=== PATIENT | male | born 1930 | race Caucasian/White ===

== ENCOUNTER 2016-10-10 10:09 | Emergency (ER) | payer MEDICARE ==
[~2016-10-10 10:09] MED LIST: /SENOSTA PO; AMLO10TA2 PO; DIOV320T PO; ISTA0.5S OD; LIPI20TA PO; META28.35 PO; MOM30SS PO; PLAVIX PO; PRIL40CA PO; SUCR1SUS PO
--- NOTE | 2016-10-10 12:07 | REP ---
Clinical: Left hip pain. Technique: Frontal view of the pelvis with neutral and frog lateral views of the left hip. Findings: Age-related osteopenia and degenerative changes are noted and appear relatively symmetric. Left hip appears intact. No acute fracture or dislocation appreciated. Impression: Age-related degenerative changes and osteopenia. No acute fracture or dislocation. Signed by Yousif Burt MD 10/10/2016 11:58 A
--- NOTE | 2016-10-10 12:09 | REP ---
Clinical: Pain. Technique: AP, lateral, bilateral oblique and coned-down views of the lumbosacral spine. Comparison: 12/24/2010. Findings: Moderate multilevel degenerative changes and osteopenia noted. Findings include early osteophytosis, endplate sclerosis and minimal disc space narrowing as well as hypertrophic facet changes. Alignment and lordosis maintained. No acute fracture / compression injury or subluxation. Impression: Moderate multilevel degenerative changes. Signed by Yousif Burt MD 10/10/2016 12:00 P
--- NOTE | 2016-10-10 12:57 | EDDOCDS ---
Nurse's Notes [facility] Name: Yasir Guevara Age: 86 yrs Sex: Male : 1930 Arrival Date: 10/10/2016 Time: 10:09 Bed 9 Private MD: Asad Gill Diagnosis: Low back pain;Sciatica, left side Presentation: 10/10 10:14 Presenting complaint: Patient states: Pt states Monday morning got out of bed felt dls dizzy balance was off today pt states left 4th and 5th toes feel numb radiating to left knee. Adult Sepsis Screening: The patient does not have new or worsening altered mentation. Patient's respiratory rate is less than 22. Systolic blood pressure is greater than 100. Patient has a qSOFA score of 0- Negative Sepsis Screen. Suicide/Homicide risk assessment- the patient denies having any suicidal and/or homicidal ideations and does not present with any other emotional, behavioral or mental health complaints. 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 Transition of care: patient was not received from another setting of care. 10:14 Acuity: ELIER Level 3 dls 10:14 Method Of Arrival: Walkin/Carried/Asstd dls 10:22 Presenting complaint: Patient states: Also c/o lower back pain left lower back. dls Triage Assessment: 10:21 General: Appears in no apparent distress, well developed, Behavior is cooperative. dls Pain: Pain currently is 6 out of 10 on a pain scale. Historical: - Allergies: no known allergies; - Home Meds: 1. amlodipine 10 mg Oral tab 1 tab once daily 2. Diovan 320 mg Oral tab 0.5 tab once daily 3. Lipitor 20 mg Oral tab 1 tab once daily 4. Omeprazole Oral 2 times per day 5. Plavix 75 mg Oral tab 1 tab once daily 6. elequis 5mg twice a day 7. Protonix 40 mg Oral grps - PMHx: BPH; CAD; GERD; Hypercholesterolemia; Hypertension; Sciatica; a-fib; cardiac stent; - PSHx: none; Cardiac stents; - Social history: Smoking status: Patient/guardian denies using No barriers to communication noted, The patient speaks fluent Yakut. - Family history: Not pertinent. - : The pt / caregiver states he / she is on anticoagulants: coumadin. Eliquis Home medication list is obtained from the patient. - Exposure Risk Screening:: None identified. Screenin:43 Screening information is obtained from the patient. Fall risk: No risks identified. hs1 Assistance ADL's: requires no assistance with activities of daily living. Abuse/DV Screen: The patient / caregiver reports he/she is: not in a situation that causes fear, pain or injury. Nutritional screening: No deficits noted. Advance Directives: There is no active DNR order. home support is adequate. Assessment: 11:02 General: Appears in no apparent distress, Behavior is appropriate for age, cooperative. hs1 Pain: Location: left low back and left mid back. Neurological: Level of Consciousness is awake. Neurological: Reports paresthesias in his left foot. Respiratory: No deficits noted. Airway is patent Respiratory effort is even, unlabored, Respiratory pattern is regular, symmetrical. Derm: Skin is pink, warm & dry. normal. 12:54 General: Appears in no apparent distress, Behavior is appropriate for age, cooperative. srm Pain: Pain currently is 6 out of 10 on a pain scale. Musculoskeletal: Circulation, motion, and sensation intact Capillary refill < 3 seconds in bilateral fingers moves all extremities well. Vital Signs: 10:11 BP 165 / 79; Pulse 63; Resp 18 S; Temp 96.8; Pulse Ox 100% on R/A; Weight 86.18 kg (R); dd6 Height 6 ft. 1 in. (185.42 cm) (R); 11:55 Pulse 62 MON; Pulse Ox 97% ; srm 11:55 BP 159 / 87 (auto/); srm 12:51 BP 171 / 87 (auto/); srm 12:52 Pulse 60 MON; Resp 18; Temp 97.1(O); Pulse Ox 99% ; Pain 6/10; srm 10:11 Body Mass Index 25.07 (86.18 kg, 185.42 cm) dd6 Vitals: 10:11 Log In Time: October 10, 2016 at 10:09. dd6 ED Course: 10:10 Patient visited by Varinder Lorenzo PCA. dd6 10:10 Asad Gill is Private Physician. dd6 10:10 Patient moved to Waiting dd6 10:12 Patient moved to Pre RCE dd6 10:16 Triage Initiated dls 10:22 Patient moved to 9 dls 10:45 Crissy Erazo MD is Attending Physician. fg 11:04 Patient visited by Crissy Erazo MD. fg 11:41 Patient visited by Jeannette Hayes RN. hs1 11:43 The patient / caregiver is instructed regarding the plan of care and ED course. hs1 12:12 Patient visited by Jeannette Hayes RN. hs1 12:28 Hip,AP,LAT to include Pelvis Returned. EDMS 12:28 Spine. Lumbosacral, Complete Returned. EDMS 12:44 Asad Gill is Referral Physician. fg 12:52 No IV's were initiated during this patient's visit. No procedures done that require srm assistance. Order Results: Radiology Order: Spine. Lumbosacral, Complete Test: Spine. Lumbosacral, Complete REASON FOR EXAMINATION: LUMBAR PAIN; Clinical: Pain.; ; Technique: AP, lateral, bilateral oblique and coned-down views of the; lumbosacral spine.; ; Comparison: 12/24/2010.; ; Findings:; Moderate multilevel degenerative changes and osteopenia noted. Findings include; early osteophytosis, endplate sclerosis and minimal disc space narrowing as well; as hypertrophic facet changes. Alignment and lordosis maintained. No acute; fracture / compression injury or subluxation.; ; Impression:; Moderate multilevel degenerative changes.; ; ; Signed by; Yousif Burt MD 10/10/2016 12:00 P; Radiology Order: Hip,AP,LAT to include Pelvis Test: Hip,AP,LAT to include Pelvis REASON FOR EXAMINATION: HIP PAIN; Clinical: Left hip pain.; ; Technique: Frontal view of the pelvis with neutral and frog lateral views of the; left hip.; ; Findings:; Age-related osteopenia and degenerative changes are noted and appear relatively; symmetric. Left hip appears intact. No acute fracture or dislocation; appreciated.; ; Impression:; Age-related degenerative changes and osteopenia.; No acute fracture or dislocation.; ; ; Signed by; Yousif Burt MD 10/10/2016 11:58 A; Outcome: 12:45 Discharge ordered by Provider. fg 12:52 Discharge Assessment: Patient awake, alert and oriented x 3. No cognitive and/or srm functional deficits noted. Patient verbalized understanding of disposition instructions. patient administered narcotics - no. The following High Risk Discharge criteria are identified: None. Discharged to home ambulatory, with family. Condition: good Condition: stable. Discharge instructions given to patient, Instructed on discharge instructions, follow up and referral plans. medication usage, Demonstrated understanding of instructions, medications, Pt was receptive of discharge instructions/ teaching. Prescriptions given X 2. Property :Personal belongings accompany Pt. 12:56 No special radiology studies were completed. [facility] 12:56 Patient left the ED. srm Signatures: Dispatcher Med[employer] EDMS Desiree Marie, RN RN Danay Kang RN RN dls Varinder Lorenzo, CASIE YARN INSPECTOR dd6 Jeannette Hayes RN RN hs1 Crissy Erazo MD MD fg MTDD
--- NOTE | 2016-10-10 12:57 | EDDOCDS ---
Physician Documentation [facility] Name: Yasir Guevara Age: 86 yrs Sex: Male : 1930 Arrival Date: 10/10/2016 Time: 10:09 Bed 9 Private MD: Asad Gill Disposition: 10/10/16 12:45 Discharged to Home/Self Care. Impression: Low back pain, Sciatica, left side. - Condition is Stable. - Discharge Instructions: Sciatica, Back Pain, Adult, [id number]. - Prescriptions for Percocet 5- 325 mg Oral Tablet - take 1 tablet by ORAL route every 8-12 hours As needed MDD: 3 tabs; 15 tablet. Dulcolax 5 mg Oral - take 1 tablet by ORAL route at bedtime As needed; 15 tablet. - Medication Reconciliation, Local Pharmacy Hours form. - Follow up: Asad Gill; When: Call to arrange an appointment; Reason: Continuance of care. - Problem is new. - Symptoms have improved. Historical: - Allergies: no known allergies; - Home Meds: 1. amlodipine 10 mg Oral tab 1 tab once daily 2. Diovan 320 mg Oral tab 0.5 tab once daily 3. Lipitor 20 mg Oral tab 1 tab once daily 4. Omeprazole Oral 2 times per day 5. Plavix 75 mg Oral tab 1 tab once daily 6. elequis 5mg twice a day 7. Protonix 40 mg Oral grps - PMHx: BPH; CAD; GERD; Hypercholesterolemia; Hypertension; Sciatica; a-fib; cardiac stent; - PSHx: none; Cardiac stents; - Social history: Smoking status: Patient/guardian denies using No barriers to communication noted, The patient speaks fluent Chinese. - Family history: Not pertinent. - : The pt / caregiver states he / she is on anticoagulants: coumadin. Eliquis Home medication list is obtained from the patient. - Exposure Risk Screening:: None identified. Vital Signs: 10/10 10:11 BP 165 / 79; Pulse 63; Resp 18 S; Temp 96.8; Pulse Ox 100% on R/A; Weight 86.18 kg / dd6 189.99 lbs (R); Height 6 ft. 1 in. (185.42 cm) (R); 11:55 Pulse 62 MON; Pulse Ox 97% ; srm 11:55 BP 159 / 87 (auto/); srm 12:51 BP 171 / 87 (auto/); srm 12:52 Pulse 60 MON; Resp 18; Temp 97.1(O); Pulse Ox 99% ; Pain 6/10; srm 10:11 Body Mass Index 25.07 (86.18 kg, 185.42 cm) dd6 MDM: 11:25 Spine. Lumbosacral, Complete Ordered. EDMS 11:25 Hip,AP,LAT to include Pelvis Ordered. EDMS 12:51 Financial registration complete. lg Signatures: Dispatcher [employer] EDMS Desiree Marie RN RN srm Scott, Debra, RN RN dls Ganter, LoriLee, Mikel Morin lg Crissy Erazo MD MD fg MTDD
--- NOTE | 2016-10-12 13:58 | EDDOCDS ---
Nurse's Notes [facility] Name: Yasir Guevara Age: 86 yrs Sex: Male : 1930 Arrival Date: 10/10/2016 Time: 10:09 Bed 9 Private MD: Asad Gill Diagnosis: Low back pain;Sciatica, left side Presentation: 10/10 10:14 Presenting complaint: Patient states: Pt states Monday morning got out of bed felt dls dizzy balance was off today pt states left 4th and 5th toes feel numb radiating to left knee. Adult Sepsis Screening: The patient does not have new or worsening altered mentation. Patient's respiratory rate is less than 22. Systolic blood pressure is greater than 100. Patient has a qSOFA score of 0- Negative Sepsis Screen. Suicide/Homicide risk assessment- the patient denies having any suicidal and/or homicidal ideations and does not present with any other emotional, behavioral or mental health complaints. 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 Transition of care: patient was not received from another setting of care. 10:14 Acuity: ELIER Level 3 dls 10:14 Method Of Arrival: Walkin/Carried/Asstd dls 10:22 Presenting complaint: Patient states: Also c/o lower back pain left lower back. dls Triage Assessment: 10:21 General: Appears in no apparent distress, well developed, Behavior is cooperative. dls Pain: Pain currently is 6 out of 10 on a pain scale. Historical: - Allergies: no known allergies; - Home Meds: 1. amlodipine 10 mg Oral tab 1 tab once daily 2. Diovan 320 mg Oral tab 0.5 tab once daily 3. Lipitor 20 mg Oral tab 1 tab once daily 4. Omeprazole Oral 2 times per day 5. Plavix 75 mg Oral tab 1 tab once daily 6. elequis 5mg twice a day 7. Protonix 40 mg Oral grps - PMHx: BPH; CAD; GERD; Hypercholesterolemia; Hypertension; Sciatica; a-fib; cardiac stent; - PSHx: none; Cardiac stents; - Social history: Smoking status: Patient/guardian denies using No barriers to communication noted, The patient speaks fluent Kinyarwanda. - Family history: Not pertinent. - : The pt / caregiver states he / she is on anticoagulants: coumadin. Eliquis Home medication list is obtained from the patient. - Exposure Risk Screening:: None identified. Screenin:43 Screening information is obtained from the patient. Fall risk: No risks identified. hs1 Assistance ADL's: requires no assistance with activities of daily living. Abuse/DV Screen: The patient / caregiver reports he/she is: not in a situation that causes fear, pain or injury. Nutritional screening: No deficits noted. Advance Directives: There is no active DNR order. home support is adequate. Assessment: 11:02 General: Appears in no apparent distress, Behavior is appropriate for age, cooperative. hs1 Pain: Location: left low back and left mid back. Neurological: Level of Consciousness is awake. Neurological: Reports paresthesias in his left foot. Respiratory: No deficits noted. Airway is patent Respiratory effort is even, unlabored, Respiratory pattern is regular, symmetrical. Derm: Skin is pink, warm & dry. normal. 12:54 General: Appears in no apparent distress, Behavior is appropriate for age, cooperative. srm Pain: Pain currently is 6 out of 10 on a pain scale. Musculoskeletal: Circulation, motion, and sensation intact Capillary refill < 3 seconds in bilateral fingers moves all extremities well. Vital Signs: 10:11 BP 165 / 79; Pulse 63; Resp 18 S; Temp 96.8; Pulse Ox 100% on R/A; Weight 86.18 kg (R); dd6 Height 6 ft. 1 in. (185.42 cm) (R); 11:55 Pulse 62 MON; Pulse Ox 97% ; srm 11:55 BP 159 / 87 (auto/); srm 12:51 BP 171 / 87 (auto/); srm 12:52 Pulse 60 MON; Resp 18; Temp 97.1(O); Pulse Ox 99% ; Pain 6/10; srm 10:11 Body Mass Index 25.07 (86.18 kg, 185.42 cm) dd6 Vitals: 10:11 Log In Time: October 10, 2016 at 10:09. dd6 ED Course: 10:10 Patient visited by Varinder Lorenzo PCA. dd6 10:10 Asad Gill is Private Physician. dd6 10:10 Patient moved to Waiting dd6 10:12 Patient moved to Pre RCE dd6 10:16 Triage Initiated dls 10:22 Patient moved to 9 dls 10:45 Crissy Erazo MD is Attending Physician. fg 11:04 Patient visited by Crissy Erazo MD. fg 11:41 Patient visited by Jeannette Hayes RN. hs1 11:43 The patient / caregiver is instructed regarding the plan of care and ED course. hs1 12:12 Patient visited by Jeannette Hayes RN. hs1 12:28 Hip,AP,LAT to include Pelvis Returned. EDMS 12:28 Spine. Lumbosacral, Complete Returned. EDMS 12:44 GillAsad Jeremías Lilly is Referral Physician. fg 12:52 No IV's were initiated during this patient's visit. No procedures done that require srm assistance. 14:33 T-Sheet-- Draft Copy was scanned into Enomaly and attached to record. gb 14:54 Patient name changed from Yasir\Juanito\\S\Hill\S\ to Yasir\Juanito\ \S\Hill. EDMS 14:55 [facility] [place] Agreement was scanned into [employer] and attached to record. lg Order Results: Radiology Order: Spine. Lumbosacral, Complete Test: Spine. Lumbosacral, Complete REASON FOR EXAMINATION: LUMBAR PAIN; Clinical: Pain.; ; Technique: AP, lateral, bilateral oblique and coned-down views of the; lumbosacral spine.; ; Comparison: 12/24/2010.; ; Findings:; Moderate multilevel degenerative changes and osteopenia noted. Findings include; early osteophytosis, endplate sclerosis and minimal disc space narrowing as well; as hypertrophic facet changes. Alignment and lordosis maintained. No acute; fracture / compression injury or subluxation.; ; Impression:; Moderate multilevel degenerative changes.; ; ; Signed by; Yousif Burt MD 10/10/2016 12:00 P; Radiology Order: Hip,AP,LAT to include Pelvis Test: Hip,AP,LAT to include Pelvis REASON FOR EXAMINATION: HIP PAIN; Clinical: Left hip pain.; ; Technique: Frontal view of the pelvis with neutral and frog lateral views of the; left hip.; ; Findings:; Age-related osteopenia and degenerative changes are noted and appear relatively; symmetric. Left hip appears intact. No acute fracture or dislocation; appreciated.; ; Impression:; Age-related degenerative changes and osteopenia.; No acute fracture or dislocation.; ; ; Signed by; Youisf Burt MD 10/10/2016 11:58 A; Outcome: 12:45 Discharge ordered by Provider. fg 12:52 Discharge Assessment: Patient awake, alert and oriented x 3. No cognitive and/or srm functional deficits noted. Patient verbalized understanding of disposition instructions. patient administered narcotics - no. The following High Risk Discharge criteria are identified: None. Discharged to home ambulatory, with family. Condition: good Condition: stable. Discharge instructions given to patient, Instructed on discharge instructions, follow up and referral plans. medication usage, Demonstrated understanding of instructions, medications, Pt was receptive of discharge instructions/ teaching. Prescriptions given X 2. Property :Personal belongings accompany Pt. 12:56 No special radiology studies were completed. srm 12:56 Patient left the ED. srm Signatures: Dispatcher [employer] EDMS Desiree Marie, RN RN Danay Kang RN RN dls Stacy Berrios, Reg Reg gb Kat Mendoza, Reg Reg lg Varinder Lorenzo, FRONT END ALIGNMENT SPECIALIST FRONT END ALIGNMENT SPECIALIST dd6 Jeannette Hayes RN RN hs1 Crissy Erazo MD MD fg Chart Complete MTDD
--- NOTE | 2016-10-12 13:58 | EDDOCDS ---
Physician Documentation [facility] Name: Yasir Guevara Age: 86 yrs Sex: Male : 1930 Arrival Date: 10/10/2016 Time: 10:09 Bed 9 Private MD: Asad Gill Disposition: 10/10/16 12:45 Discharged to Home/Self Care. Impression: Low back pain, Sciatica, left side. - Condition is Stable. - Discharge Instructions: Sciatica, Back Pain, Adult, [id number]. - Prescriptions for Percocet 5- 325 mg Oral Tablet - take 1 tablet by ORAL route every 8-12 hours As needed MDD: 3 tabs; 15 tablet. Dulcolax 5 mg Oral - take 1 tablet by ORAL route at bedtime As needed; 15 tablet. - Medication Reconciliation, Local Pharmacy Hours form. - Follow up: Asad Gill; When: Call to arrange an appointment; Reason: Continuance of care. - Problem is new. - Symptoms have improved. Historical: - Allergies: no known allergies; - Home Meds: 1. amlodipine 10 mg Oral tab 1 tab once daily 2. Diovan 320 mg Oral tab 0.5 tab once daily 3. Lipitor 20 mg Oral tab 1 tab once daily 4. Omeprazole Oral 2 times per day 5. Plavix 75 mg Oral tab 1 tab once daily 6. elequis 5mg twice a day 7. Protonix 40 mg Oral grps - PMHx: BPH; CAD; GERD; Hypercholesterolemia; Hypertension; Sciatica; a-fib; cardiac stent; - PSHx: none; Cardiac stents; - Social history: Smoking status: Patient/guardian denies using No barriers to communication noted, The patient speaks fluent Pashto. - Family history: Not pertinent. - : The pt / caregiver states he / she is on anticoagulants: coumadin. Eliquis Home medication list is obtained from the patient. - Exposure Risk Screening:: None identified. Vital Signs: 10/10 10:11 BP 165 / 79; Pulse 63; Resp 18 S; Temp 96.8; Pulse Ox 100% on R/A; Weight 86.18 kg / dd6 189.99 lbs (R); Height 6 ft. 1 in. (185.42 cm) (R); 11:55 Pulse 62 MON; Pulse Ox 97% ; srm 11:55 BP 159 / 87 (auto/); srm 12:51 BP 171 / 87 (auto/); srm 12:52 Pulse 60 MON; Resp 18; Temp 97.1(O); Pulse Ox 99% ; Pain 6/10; srm 10:11 Body Mass Index 25.07 (86.18 kg, 185.42 cm) dd6 MDM: 11:25 Spine. Lumbosacral, Complete Ordered. EDMS 11:25 Hip,AP,LAT to include Pelvis Ordered. EDMS 12:51 Financial registration complete. lg 14:33 T-Sheet-- Draft Copy was scanned into All[employer] and attached to record. gb 14:55 [facility] Payment Agreement was scanned into [employer] and attached to record. lg Signatures: Dispatcher MedHost EDMS Desiree Marie, SHELLY BRAVO [facility] Danay Garcia RN RN dls Barnhardt, Gloria, Reg Reg gb Kat Mendoza, Reg Reg lg Crissy Erazo MD MD fg The chart was reviewed and I authenticate all verbal orders and agree with the evaluation and treatment provided.Attachments: 14:33 T-Sheet-- Draft Copy gb 14:55 [facility] Payment Agreement lg Chart Complete MTDD
--- NOTE | 2016-10-12 13:58 | EDDOCDS ---
Physician Documentation [facility] Name: Yasir Guevara Age: 86 yrs Sex: Male : 1930 Arrival Date: 10/10/2016 Time: 10:09 Bed 9 Private MD: Asad Gill Disposition: 10/10/16 12:45 Discharged to Home/Self Care. Impression: Low back pain, Sciatica, left side. - Condition is Stable. - Discharge Instructions: Sciatica, Back Pain, Adult, [id number]-Farb. - Prescriptions for Percocet 5- 325 mg Oral Tablet - take 1 tablet by ORAL route every 8-12 hours As needed MDD: 3 tabs; 15 tablet. Dulcolax 5 mg Oral - take 1 tablet by ORAL route at bedtime As needed; 15 tablet. - Medication Reconciliation, Local Pharmacy Hours form. - Follow up: Asad Gill; When: Call to arrange an appointment; Reason: Continuance of care. - Problem is new. - Symptoms have improved. Historical: - Allergies: no known allergies; - Home Meds: 1. amlodipine 10 mg Oral tab 1 tab once daily 2. Diovan 320 mg Oral tab 0.5 tab once daily 3. Lipitor 20 mg Oral tab 1 tab once daily 4. Omeprazole Oral 2 times per day 5. Plavix 75 mg Oral tab 1 tab once daily 6. elequis 5mg twice a day 7. Protonix 40 mg Oral grps - PMHx: BPH; CAD; GERD; Hypercholesterolemia; Hypertension; Sciatica; a-fib; cardiac stent; - PSHx: none; Cardiac stents; - Social history: Smoking status: Patient/guardian denies using No barriers to communication noted, The patient speaks fluent Kiswahili. - Family history: Not pertinent. - : The pt / caregiver states he / she is on anticoagulants: coumadin. Eliquis Home medication list is obtained from the patient. - Exposure Risk Screening:: None identified. Vital Signs: 10/10 10:11 BP 165 / 79; Pulse 63; Resp 18 S; Temp 96.8; Pulse Ox 100% on R/A; Weight 86.18 kg / dd6 189.99 lbs (R); Height 6 ft. 1 in. (185.42 cm) (R); 11:55 Pulse 62 MON; Pulse Ox 97% ; srm 11:55 BP 159 / 87 (auto/); srm 12:51 BP 171 / 87 (auto/); srm 12:52 Pulse 60 MON; Resp 18; Temp 97.1(O); Pulse Ox 99% ; Pain 6/10; srm 10:11 Body Mass Index 25.07 (86.18 kg, 185.42 cm) dd6 MDM: 11:25 Spine. Lumbosacral, Complete Ordered. EDMS 11:25 Hip,AP,LAT to include Pelvis Ordered. EDMS 12:51 Financial registration complete. lg 14:33 T-Sheet-- Draft Copy was scanned into [employer] and attached to record. gb 14:55 [facility] Payment Agreement was scanned into [employer] and attached to record. lg Signatures: Dispatcher MedHost EDMS Desiree Marie, SHELLY BRAVO [facility] Danay Garcia RN RN dls Barnhardt, Gloria, Reg Reg gb Kat Mendoza, Reg Reg lg Crissy Erazo MD MD fg The chart was reviewed and I authenticate all verbal orders and agree with the evaluation and treatment provided.Attachments: 14:33 T-Sheet-- Draft Copy gb 14:55 [facility] Payment Agreement lg Chart Complete MTDD
== END 2016-10-10 12:56 | disposition home or self-care (01) ==
LOC: M ED 10:09
DX: M54.30 Sciatica, unspecified side (principal); N40.0 Benign prostatic hyperplasia without lower urinary tract symptoms; I25.10 Atherosclerotic heart disease of native coronary artery without angina pectoris; K21.9 Gastro-esophageal reflux disease without esophagitis; E78.00 Pure hypercholesterolemia, unspecified; I10 Essential (primary) hypertension; I48.91 Unspecified atrial fibrillation; Z95.5 Presence of coronary angioplasty implant and graft; Z79.01 Long term (current) use of anticoagulants; Z79.02 Long term (current) use of antithrombotics/antiplatelets; Z79.899 Other long term (current) drug therapy

== ENCOUNTER 2016-10-27 17:07 | Emergency (ER) | payer MEDICARE ==
[2016-10-27 18:39] LABS: BASO % 0.3 % (0.0-1.0); EOS # 0.1 K/mm3 (0.0-0.50); EOS % 0.6 % (0.0-3.0); LARGE UNSTAINED CELL # 0.1 K/mm3 (0.0-0.4); LARGE UNSTAINED CELL % 1.4 % (0.0-4.0); LYMPH # 2.2 K/mm3 (1.5-4.5); LYMPH % 23.2 % (24.0-44.0); MEAN CORPUSCULAR HEMOGLOBIN 30.8 pg (27.0-33.0); MEAN CORPUSCULAR VOLUME 87.8 fl (80.0-96.0); MONO # 0.5 K/mm3 (0.0-0.8); MONO % 4.8 % (0.0-5.0); NEUTROPHILS # 6.6 K/mm3 (1.8-7.7); NEUTROPHILS % 69.6 % (36.0-66.0); PLATELET COUNT, AUTOMATED 279 k/mm3 (150-450); RED CELL DISTRIBUTION WIDTH 12.6 % (11.5-14.5); WHITE BLOOD COUNT 9.5 K/mm3 (4.0-10.0)
[2016-10-27 18:56] LABS: ALBUMIN/GLOBULIN RATIO 1.33 (1.00-1.93); BILIRUBIN,DIRECT 0.2 MG/DL (0.0-0.2); BILIRUBIN,TOTAL 0.8 MG/DL (0.2-1.0); CALCIUM LEVEL 9.4 MG/DL (8.8-10.2); CREATININE FOR GFR 1.31 MG/DL (0.70-1.30); GLOMERULAR FILTRATION RATE 55.1 (>35); POTASSIUM SERUM 3.9 MEQ/L (3.5-5.1)
--- NOTE | 2016-10-27 19:00 | REPUSA ---
CLINICAL HISTORY: Abdominal pain. TECHNIQUE: Multiple axial, sagittal and coronal CT images were obtained through the abdomen and pelvi s without administration of oral or IV contrast material. COMMENTS: Several small hepatic hypodensities are present to small to characterize most bowel small cysts versu s hemangiomas. The liver is of uniform attenuation without mass or defect. There is no intra or extr ahepatic biliary ductal dilatation. The spleen is normal. The gallbladder is within normal limits. Th e pancreas is of normal contour and attenuation characteristics. There is no evidence of adrenal mass . The kidneys are normal in size, shape and configuration. No renal or ureteral calculi are identified. There is no hydroureter or hydronephrosis. There is no evidence for appendicitis. There is no bowel wall thickening. No evidence for small or la rge bowel obstruction. There is no evidence of abdominal ascites or lymphadenopathy. There is no evidence of intrinsic or extrinsic bladder mass. There is no pelvic ascites or lymphadeno filiberto. Prostate is mildly enlarged and contains calcifications with Images of the lung bases show no evidence of pleural or parenchymal mass. There are no pleural effusi ons. The bony structures are free of lytic or blastic lesions. Multilevel degenerative changes are seen in volving the thoracolumbar spine. Scattered calcifications are seen involving the aorta and major branches compatible with atherosclero sis. IMPRESSION: No acute abdominal or pelvic pathology. Thank you for your kind referral of this patient.
--- NOTE | 2016-10-27 19:34 | EDDOCDS ---
Nurse's Notes [facility] Name: Yasir Guevara Age: 86 yrs Sex: Male : 1930 Arrival Date: 10/27/2016 Time: 17:07 Bed I2 / M2 Private MD: Asad Gill Diagnosis: Low back pain;Dehydration;Contusion of lower back and pelvis Presentation: 10/27 17:21 Presenting complaint: Patient states: pt c/o right flank pain since Monday. Reports ead nausea, denies vomiting. Pt states he is currently being treated for UTI. Acute neurological deficits are not present. Mechanism of Injury: No Mechanism of Injury. Adult Sepsis Screening: The patient does not have new or worsening altered mentation. Patient's respiratory rate is less than 22. Systolic blood pressure is greater than 100. Patient has a qSOFA score of 0- Negative Sepsis Screen. Suicide/Homicide risk assessment- the patient denies having any suicidal and/or homicidal ideations and does not present with any other emotional, behavioral or mental health complaints. Status: Patient is not a services executive or dependent. Transition of care: patient was not received from another setting of care. 17:21 Acuity: ELIER Level 3 ead 17:21 Method Of Arrival: Walkin/Carried/Asstd ead Triage Assessment: 17:24 General: Appears in no apparent distress, comfortable, well nourished, well groomed, ead Behavior is appropriate for age, cooperative, pleasant. Pain: Location: anterior aspect of right lateral abdomen Pain currently is 6 out of 10 on a pain scale. Neurological: No deficits noted. GI: Reports nausea. : Reports pain with urination. Derm: Skin is pink, warm & dry. Musculoskeletal: Reports pain in anterior aspect of right lateral abdomen. Historical: - Allergies: no known allergies; - Home Meds: 1. amlodipine 10 mg Oral tab 1 tab once daily 2. Diovan 320 mg Oral tab 0.5 tab once daily 3. elequis 5mg twice a day 4. Lipitor 20 mg Oral tab 1 tab once daily 5. Omeprazole Oral 2 times per day 6. Plavix 75 mg Oral tab 1 tab once daily - PMHx: A-fib; cardiac stent; Sciatica; Hypercholesterolemia; CAD; GERD; BPH; Hypertension; - PSHx: Cardiac stents; - Social history: No barriers to communication noted, The patient speaks fluent Romanian, Speaks appropriately for age, Smoking status: Patient states former smoker of tobacco. - Family history: Not pertinent. - : The pt / caregiver states he / she is on anticoagulants: Plavix. Eliquis Home medication list is obtained from the patient. - Exposure Risk Screening:: None identified. Screenin:22 Screening information is obtained from the patient. Fall risk: No risks identified. mk4 Assistance ADL's: Requires assistance with housework, assistance is provided by family members. Abuse/DV Screen: The patient / caregiver reports he/she is: not in a situation that causes fear, pain or injury. Nutritional screening: No deficits noted. home support is adequate. 19:32 Advance Directives: Currently, there is no health care proxy. There is no active DNR ms2 order. There is no living will. There is no Power of Senior Java Web Developer. Advance directive information has not previously been placed in an [facility] medical record. Further advance directive information is declined. Assessment: 18:22 General: Appears uncomfortable. Pain: Location: anterior aspect of right lateral mk4 abdomen. GI: Abdomen is non- distended Bowel sounds present X 4 quads. Abd is soft and non tender. 19:27 Adult Sepsis Screening: The patient does not have new or worsening altered mentation. ms2 Patient's respiratory rate is less than 22. Systolic blood pressure is greater than 100. Patient has a qSOFA score of 0- Negative Sepsis Screen. No known or suspected infection- Negative Sepsis Screen. General: Appears in no apparent distress, Behavior is cooperative. Pain: Location: back Pain currently is 7 out of 10 on a pain scale. Neurological: Level of Consciousness is awake, alert, obeys commands. Respiratory: No deficits noted. Airway is patent Respiratory effort is even, unlabored, Respiratory pattern is regular, symmetrical. Derm: Skin is pink, warm & dry. Vital Signs: 17:11 BP 157 / 97; Pulse 69; Resp 16; Temp 97.7(O); Pulse Ox 100% on R/A; Weight 83.91 kg; sew Height 6 ft. 1 in. (185.42 cm); Pain 6/10; 19:28 BP 181 / 77; Pulse 64; Resp 22 S; Temp 96(O); Pulse Ox 95% on R/A; ms2 17:11 Body Mass Index 24.41 (83.91 kg, 185.42 cm) sew 19:28 pt will take his 2 bp meds when he gets home ms2 Vitals: 17:11 Log In Time: October 27, 2016 at 17:05. sew ED Course: 17:11 Patient visited by Amanda Vicente. sew 17:11 Asad Gill is Private Physician. sew 17:11 Patient moved to Waiting sew 17:12 Patient visited by Amanda Vicente. sew 17:12 Patient moved to Pre RCE sew 17:22 Triage Initiated ead 17:27 Patient moved to Triage 2 ead 17:44 Shashi Mercado PA is PHCP. mo1 17:44 Amanda lEise MD is Attending Physician. mo1 17:49 Patient visited by Viji Jimenez RN. ck1 17:49 Patient visited by Shashi Mercado PA. mo1 18:06 Patient moved to I2 / M2 ck1 18:09 Urinalysis Sent. mlb1 18:09 Urine Culture Sent. mlb1 18:22 The patient / caregiver is instructed regarding the plan of care and ED course. mk4 18:22 Basic Metabolic Profile Sent. mk4 18:22 CBC with Diff Sent. mk4 18:22 Lipase Sent. mk4 18:22 Liver Profile Sent. mk4 18:22 Inserted saline lock: 20 gauge in right antecubital area and blood collected. mk4 18:25 Patient visited by Brook Mejía, SHELLY. mk4 19:07 CT ABD & PELVIS: No Contrast Returned. EDMS 19:12 Asad Gill is Referral Physician. mo1 19:15 Patient visited by Brenden Helms,RN. ms2 19:27 Patient visited by Brenden Helms,SHELLY. ms2 19:29 [facility] [place] Agreement was scanned into [employer] and attached to record. zo 19:29 The patient / caregiver is instructed regarding the plan of care and ED course. ms2 19:29 Discontinued IV intact, bleeding controlled, pressure dressing applied, No ms2 redness/swelling at site. No procedures done that require assistance. Administered Medications: 18:20 Drug: NS 0.9% 1000 ml [sodium chloride 0.9 % intravenous solution] Route: IV; Rate: jjr bolus; Site: right antecubital; 19:25 Drug: Ondansetron 4 mg Route: IVP; Site: right antecubital; ms2 Intake: 19:28 PO: 0.00ml; IV: 875.00ml (NS); Total: 875.00ml. ms2 Order Results: Lab Order: Basic Metabolic Profile; SPEC'M 10/27/16 18:10 Test: GLUCOSE, FASTING; Value: 111; Range: 83-110; Abnormal: Above high normal; Units: MG/DL; Status: F Test: BLOOD UREA NITROGEN; Value: 17; Range: 7-18; Units: MG/DL; Status: F Test: CREATININE FOR GFR; Value: 1.31; Range: 0.70-1.30; Abnormal: Above high normal; Units: MG/DL; Status: F Test: GLOMERULAR FILTRATION RATE; Value: 55.1; Range: >35; Status: F Test: SODIUM LEVEL; Value: 135; Range: 136-145; Abnormal: Below low normal; Units: MEQ/L; Status: F Test: POTASSIUM SERUM; Value: 3.9; Range: 3.5-5.1; Units: MEQ/L; Status: F Test: CHLORIDE LEVEL; Value: 97; Range: 98-107; Abnormal: Below low normal; Units: MEQ/L; Status: F Test: CARBON DIOXIDE LEVEL; Value: 28; Range: 21-32; Units: MEQ/L; Status: F Test: ANION GAP; Value: 10; Range: 8-16; Units: MEQ/L; Status: F Test: CALCIUM LEVEL; Value: 9.4; Range: 8.8-10.2; Units: MG/DL; Status: F Test Note: ; Units are mL/min/1.73 m2 Chronic Kidney Disease Staging per NKF: Stage I & II GFR >=60 Normal to Mildly Decreased Stage III GFR 30-59 Moderately Decreased Stage IV GFR 15-29 Severely Decreased Stage V GFR <15 Very Little GFR Left ESRD GFR <15 on [employer] Lab Order: CBC with Diff; SPEC'M 10/27/16 18:10 Test: WHITE BLOOD COUNT; Value: 9.5; Range: 4.0-10.0; Units: K/mm3; Status: F Test: RED BLOOD COUNT; Value: 4.95; Range: 4.30-6.10; Units: M/mm3; Status: F Test: HEMOGLOBIN; Value: 15.2; Range: 14.0-18.0; Units: g/dl; Status: F Test: HEMATOCRIT; Value: 43.4; Range: 42.0-52.0; Units: %; Status: F Test: MEAN CORPUSCULAR VOLUME; Value: 87.8; Range: 80.0-96.0; Units: fl; Status: F Test: MEAN CORPUSCULAR HEMOGLOBIN; Value: 30.8; Range: 27.0-33.0; Units: pg; Status: F Test: MEAN CORPUSCULAR HGB CONC; Value: 35.0; Range: 32.0-36.5; Units: g/dl; Status: F Test: RED CELL DISTRIBUTION WIDTH; Value: 12.6; Range: 11.5-14.5; Units: %; Status: F Test: PLATELET COUNT, AUTOMATED; Value: 279; Range: 150-450; Units: k/mm3; Status: F Test: NEUTROPHILS %; Value: 69.6; Range: 36.0-66.0; Abnormal: Above high normal; Units: %; Status: F Test: LYMPH %; Value: 23.2; Range: 24.0-44.0; Abnormal: Below low normal; Units: %; Status: F Test: MONO %; Value: 4.8; Range: 0.0-5.0; Units: %; Status: F Test: EOS %; Value: 0.6; Range: 0.0-3.0; Units: %; Status: F Test: BASO %; Value: 0.3; Range: 0.0-1.0; Units: %; Status: F Test: LARGE UNSTAINED CELL %; Value: 1.4; Range: 0.0-4.0; Units: %; Status: F Test: NEUTROPHILS #; Value: 6.6; Range: 1.8-7.7; Units: K/mm3; Status: F Test: LYMPH #; Value: 2.2; Range: 1.5-4.5; Units: K/mm3; Status: F Test: MONO #; Value: 0.5; Range: 0.0-0.8; Units: K/mm3; Status: F Test: EOS #; Value: 0.1; Range: 0.0-0.50; Units: K/mm3; Status: F Test: BASO #; Value: 0.0; Range: 0.0-0.2; Units: K/mm3; Status: F Test: LARGE UNSTAINED CELL #; Value: 0.1; Range: 0.0-0.4; Units: K/mm3; Status: F Lab Order: Lipase; SPEC'M 10/27/16 18:10 Test: LIPASE; Value: 168; Range: 73-393; Units: U/L; Status: F Lab Order: Liver Profile; SPEC'M 10/27/16 18:10 Test: AST/SGOT; Value: 12; Range: 15-37; Abnormal: Below low normal; Units: U/L; Status: F Test: ALT/SGPT; Value: 18; Range: 12-78; Units: U/L; Status: F Test: ALKALINE PHOSPHATASE; Value: 79; Range: 45-117; Units: U/L; Status: F Test: BILIRUBIN,TOTAL; Value: 0.8; Range: 0.2-1.0; Units: MG/DL; Status: F Test: BILIRUBIN,DIRECT; Value: 0.2; Range: 0.0-0.2; Units: MG/DL; Status: F Test: TOTAL PROTEIN; Value: 7.0; Range: 6.4-8.2; Units: GM/DL; Status: F Test: ALBUMIN; Value: 4.0; Range: 3.2-5.2; Units: GM/DL; Status: F Test: ALBUMIN/GLOBULIN RATIO; Value: 1.33; Range: 1.00-1.93; Status: F Lab Order: Urinalysis; SPEC'M 10/27/16 18:09 Test: APPEARANCE, URINE; Value: CLEAR; Range: CLEAR; Status: F Test: COLOR, URINE; Value: LISA; Range: YELLOW; Status: F Test: PH,URINE; Value: 5.0; Range: 5.0-9.0; Units: UNITS; Status: F Test: SPECIFIC GRAVITY URINE AUTO; Value: 1.020; Range: 1.002-1.035; Status: F Test: PROTEIN, URINE AUTO; Value: NEGATIVE; Range: NEGATIVE; Units: mg/dL; Status: F Test: GLUCOSE, URINE (UA) AUTO; Value: NEGATIVE; Range: NEGATIVE; Units: mg/dL; Status: F Test: KETONE, URINE AUTO; Value: NEGATIVE; Range: NEGATIVE; Units: mg/dL; Status: F Test: UROBILINOGEN, URINE AUTO; Value: 4.0; Range: 0.0-2.0; Abnormal: Above high normal; Units: mg/dL; Status: F Test: BILIRUBIN, URINE AUTO; Value: NEGATIVE; Range: NEGATIVE; Status: F Test: NITRITE, URINE AUTO; Value: POSITIVE; Range: NEGATIVE; Status: F Test: LEUKOCYTE ESTERASE, URINE AUTO; Value: NEGATIVE; Range: NEGATIVE; Status: F Test: BLOOD, URINE BLOOD; Value: NEGATIVE; Range: NEGATIVE; Status: F Test: WBC, URINE AUTO; Value: 0; Range: 0-3; Units: /HPF; Status: F Test: RBC, URINE AUTO; Value: 3; Range: 0-3; Units: /HPF; Status: F Test: BACTERIA, URINE AUTO; Value: NEGATIVE; Range: NEGATIVE; Status: F Test: SQUAMOUS EPITHELIAL CELL UR AU; Value: 0; Range: 0-6; Units: /HPF; Status: F Test: MUCUS, URINE; Value: SMALL; Range: NEGATIVE; Status: F Test: HYALINE CAST, URINE AUTO; Value: 6; Range: 0-1; Units: /LPF; Status: F Radiology Order: CT ABD & PELVIS: No Contrast Test: CT ABD & PELVIS: No Contrast REASON FOR EXAMINATION: right flank; ; CLINICAL HISTORY: Abdominal pain.; TECHNIQUE: Multiple axial, sagittal and coronal CT images were obtained through the abdomen and pelvi; s without administration of oral or IV contrast material.; COMMENTS:; Several small hepatic hypodensities are present to small to characterize most bowel small cysts versu; s hemangiomas. The liver is of uniform attenuation without mass or defect. There is no intra or extr; ahepatic biliary ductal dilatation. The spleen is normal. The gallbladder is within normal limits. Th; e pancreas is of normal contour and attenuation characteristics. There is no evidence of adrenal mass; .; The kidneys are normal in size, shape and configuration. No renal or ureteral calculi are identified.; There is no hydroureter or hydronephrosis.; There is no evidence for appendicitis. There is no bowel wall thickening. No evidence for small or la; rge bowel obstruction. There is no evidence of abdominal ascites or lymphadenopathy.; There is no evidence of intrinsic or extrinsic bladder mass. There is no pelvic ascites or lymphadeno; filiberto.; Prostate is mildly enlarged and contains calcifications with; Images of the lung bases show no evidence of pleural or parenchymal mass. There are no pleural effusi; ons.; The bony structures are free of lytic or blastic lesions. Multilevel degenerative changes are seen in; volving the thoracolumbar spine.; Scattered calcifications are seen involving the aorta and major branches compatible with atherosclero; sis.; IMPRESSION:; No acute abdominal or pelvic pathology.; Thank you for your kind referral of this patient.; ; Outcome: 19:12 Discharge ordered by Provider. mo1 19:29 Discharge Assessment: patient administered narcotics - no. The following High Risk ms2 Discharge criteria are identified: None. Discharged to home ambulatory, with family. Condition: stable. Discharge instructions given to patient, Instructed on discharge instructions, follow up and referral plans. medication usage, no driving heavy equipment, no drinking with medication, Demonstrated understanding of instructions, medications, Pt was receptive of discharge instructions/ teaching. Prescriptions given X one faxed. No special radiology studies were completed. Property sent home with patient. 19:33 Patient left the ED. ms2 Signatures: Dispatcher [employer] EDMS Brenden Helms RN RN ms2 Shashi Galdamez RN RN mlb1 Viji Jimenez RN RN ck1 Jennifer Saxena Jessica RN RN Amanda Alejandre Michael, PA PA mo1 Brook Mejía RN RN mk4 Bushra GargRN RN jaylen Corrections: (The following items were deleted from the chart) 19:32 19:28 BP 181 / 77; Pulse 64bpm; Resp 22bpm; Spontaneous; Pulse Ox 95% RA; Temp 96F ms2 Oral; ms2 MTDD
--- NOTE | 2016-10-27 19:34 | EDDOCDS ---
Physician Documentation [facility] Name: Yasir Guevara Age: 86 yrs Sex: Male : 1930 Arrival Date: 10/27/2016 Time: 17:07 Bed I2 / M2 Private MD: Asad Gill Disposition: 10/27/16 19:12 Discharged to Home/Self Care. Impression: Low back pain, Dehydration, Contusion of lower back and pelvis. - Condition is Stable. - Discharge Instructions: Back Pain, Adult, Contusion, Dehydration, Elderly. - Prescriptions for Tylenol- Codeine #3 300-30 mg Oral Tablet - take 1 tablet by ORAL route every 6 hours As needed MDD: 4 tabs; 20 tablet. ZOFRAN ODT 4 mg - dissolve 1 tablet by ORAL route 4 times per day As needed do not chew, do not swallow whole; 10 tablet. - Medication Reconciliation, Local Pharmacy Hours form. - Follow up: Asad Gill; When: Call to arrange an appointment; Reason: Recheck today's complaints, Continuance of care. - Problem is new. - Symptoms are unchanged. Historical: - Allergies: no known allergies; - Home Meds: 1. amlodipine 10 mg Oral tab 1 tab once daily 2. Diovan 320 mg Oral tab 0.5 tab once daily 3. elequis 5mg twice a day 4. Lipitor 20 mg Oral tab 1 tab once daily 5. Omeprazole Oral 2 times per day 6. Plavix 75 mg Oral tab 1 tab once daily - PMHx: A-fib; cardiac stent; Sciatica; Hypercholesterolemia; CAD; GERD; BPH; Hypertension; - PSHx: Cardiac stents; - Social history: No barriers to communication noted, The patient speaks fluent Lithuanian, Speaks appropriately for age, Smoking status: Patient states former smoker of tobacco. - Family history: Not pertinent. - : The pt / caregiver states he / she is on anticoagulants: Plavix. Eliquis Home medication list is obtained from the patient. - Exposure Risk Screening:: None identified. Vital Signs: 10/27 17:11 BP 157 / 97; Pulse 69; Resp 16; Temp 97.7(O); Pulse Ox 100% on R/A; Weight 83.91 kg / sew 184.99 lbs; Height 6 ft. 1 in. (185.42 cm); Pain 6/10; 19:28 BP 181 / 77; Pulse 64; Resp 22 S; Temp 96(O); Pulse Ox 95% on R/A; ms2 17:11 Body Mass Index 24.41 (83.91 kg, 185.42 cm) sew 19:28 pt will take his 2 bp meds when he gets home ms2 MDM: 18:03 NS 0.9% 1000 ml IV at bolus once ordered. mo1 18:03 IV Saline Lock ordered. mo1 18:03 Undress patient appropriately for examination ordered. mo1 18:04 CT ABD & PELVIS: No Contrast Ordered. EDMS 18:05 Basic Metabolic Profile Ordered. EDMS 18:05 CBC with Diff Ordered. EDMS 18:05 Lipase Ordered. EDMS 18:05 Liver Profile Ordered. EDMS 18:05 Urinalysis Ordered. EDMS 18:05 Urine Culture Ordered. EDMS 18:05 NOTHING BY MOUTH+DIET ordered. EDMS 18:58 CBC with Diff Reviewed. mo1 18:58 Urinalysis Reviewed. mo1 18:59 Basic Metabolic Profile Reviewed. mo1 18:59 Liver Profile Reviewed. mo1 18:59 Lipase Reviewed. mo1 19:05 Ondansetron 4 mg IVP once ordered. mo1 19:24 Financial registration complete. zo 19:29 [facility] Payment Agreement was scanned into [employer] and attached to record. zo Administered Medications: 18:20 Drug: NS 0.9% 1000 ml [sodium chloride 0.9 % intravenous solution] Route: IV; Rate: jjr bolus; Site: right antecubital; 19:25 Drug: Ondansetron 4 mg Route: IVP; Site: right antecubital; ms2 Signatures: Dispatcher [employer] EDRI Brenden Helms RN RN ms2 Jennifer Saxena Michael, PA PA mo1 Brook Mejía RN RN mk4 Bushra Garg RN RN ead Raymond, Jessica RN jjskylar The chart was reviewed and I authenticate all verbal orders and agree with the evaluation and treatment provided.Attachments: 19:29 [facility] Payment Agreement zo MTDD
--- NOTE | 2016-10-29 20:34 | EDDOCDS ---
Physician Documentation [facility] Name: Yasir Guevara Age: 86 yrs Sex: Male : 1930 Arrival Date: 10/27/2016 Time: 17:07 Bed I2 / M2 Private MD: Asad Gill Disposition: 10/27/16 19:12 Discharged to Home/Self Care. Impression: Low back pain, Dehydration, Contusion of lower back and pelvis. - Condition is Stable. - Discharge Instructions: Back Pain, Adult, Contusion, Dehydration, Elderly. - Prescriptions for Tylenol- Codeine #3 300-30 mg Oral Tablet - take 1 tablet by ORAL route every 6 hours As needed MDD: 4 tabs; 20 tablet. ZOFRAN ODT 4 mg - dissolve 1 tablet by ORAL route 4 times per day As needed do not chew, do not swallow whole; 10 tablet. - Medication Reconciliation, Local Pharmacy Hours form. - Follow up: Asad Gill; When: Call to arrange an appointment; Reason: Recheck today's complaints, Continuance of care. - Problem is new. - Symptoms are unchanged. Historical: - Allergies: no known allergies; - Home Meds: 1. amlodipine 10 mg Oral tab 1 tab once daily 2. Diovan 320 mg Oral tab 0.5 tab once daily 3. elequis 5mg twice a day 4. Lipitor 20 mg Oral tab 1 tab once daily 5. Omeprazole Oral 2 times per day 6. Plavix 75 mg Oral tab 1 tab once daily - PMHx: A-fib; cardiac stent; Sciatica; Hypercholesterolemia; CAD; GERD; BPH; Hypertension; - PSHx: Cardiac stents; - Social history: No barriers to communication noted, The patient speaks fluent Armenian, Speaks appropriately for age, Smoking status: Patient states former smoker of tobacco. - Family history: Not pertinent. - : The pt / caregiver states he / she is on anticoagulants: Plavix. Eliquis Home medication list is obtained from the patient. - Exposure Risk Screening:: None identified. Vital Signs: 10/27 17:11 BP 157 / 97; Pulse 69; Resp 16; Temp 97.7(O); Pulse Ox 100% on R/A; Weight 83.91 kg / sew 184.99 lbs; Height 6 ft. 1 in. (185.42 cm); Pain 6/10; 19:28 BP 181 / 77; Pulse 64; Resp 22 S; Temp 96(O); Pulse Ox 95% on R/A; ms2 17:11 Body Mass Index 24.41 (83.91 kg, 185.42 cm) sew 19:28 pt will take his 2 bp meds when he gets home ms2 MDM: 18:03 NS 0.9% 1000 ml IV at bolus once ordered. mo1 18:03 IV Saline Lock ordered. mo1 18:03 Undress patient appropriately for examination ordered. mo1 18:04 CT ABD & PELVIS: No Contrast Ordered. EDMS 18:05 Basic Metabolic Profile Ordered. EDMS 18:05 CBC with Diff Ordered. EDMS 18:05 Lipase Ordered. EDMS 18:05 Liver Profile Ordered. EDMS 18:05 Urinalysis Ordered. EDMS 18:05 Urine Culture Ordered. EDMS 18:05 NOTHING BY MOUTH+DIET ordered. EDMS 18:58 CBC with Diff Reviewed. mo1 18:58 Urinalysis Reviewed. mo1 18:59 Basic Metabolic Profile Reviewed. mo1 18:59 Liver Profile Reviewed. mo1 18:59 Lipase Reviewed. mo1 19:05 Ondansetron 4 mg IVP once ordered. mo1 19:24 Financial registration complete. zo 19:29 [facility] [place] Payment Agreement was scanned into [employer] and attached to record. zo 10/28 10:41 T-Sheet-- Draft Copy was scanned into [employer] and attached to record. gb 10:41 Radiology Report was scanned into [employer] and attached to record. gb Administered Medications: 10/27 18:20 Drug: NS 0.9% 1000 ml [sodium chloride 0.9 % intravenous solution] Route: IV; Rate: jjr bolus; Site: right antecubital; 19:25 Drug: Ondansetron 4 mg Route: IVP; Site: right antecubital; ms2 Signatures: Dispatcher [employer] Brenden Lindo RN RN ms2 Stacy Berrios, Reg Reg gb Jennifer Saxena Michael, PA PA mo1 Brook Mejía RN RN mk4 Bushra Garg RN RN ead Raymond, Jessica RN jjr The chart was reviewed and I authenticate all verbal orders and agree with the evaluation and treatment provided.Attachments: 19:29 [facility], [facility] Payment Agreement zo 10/28 10:41 T-Sheet-- Draft Copy gb Chart Complete MTDD
--- NOTE | 2016-10-29 20:34 | EDDOCDS ---
Nurse's Notes [facility] Name: Yasir Guevara Age: 86 yrs Sex: Male : 1930 Arrival Date: 10/27/2016 Time: 17:07 Bed I2 / M2 Private MD: Asad Gill Diagnosis: Low back pain;Dehydration;Contusion of lower back and pelvis Presentation: 10/27 17:21 Presenting complaint: Patient states: pt c/o right flank pain since Monday. Reports ead nausea, denies vomiting. Pt states he is currently being treated for UTI. Acute neurological deficits are not present. Mechanism of Injury: No Mechanism of Injury. Adult Sepsis Screening: The patient does not have new or worsening altered mentation. Patient's respiratory rate is less than 22. Systolic blood pressure is greater than 100. Patient has a qSOFA score of 0- Negative Sepsis Screen. Suicide/Homicide risk assessment- the patient denies having any suicidal and/or homicidal ideations and does not present with any other emotional, behavioral or mental health complaints. 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 Transition of care: patient was not received from another setting of care. 17:21 Acuity: ELIER Level 3 ead 17:21 Method Of Arrival: Walkin/Carried/Asstd ead Triage Assessment: 17:24 General: Appears in no apparent distress, comfortable, well nourished, well groomed, ead Behavior is appropriate for age, cooperative, pleasant. Pain: Location: anterior aspect of right lateral abdomen Pain currently is 6 out of 10 on a pain scale. Neurological: No deficits noted. GI: Reports nausea. : Reports pain with urination. Derm: Skin is pink, warm & dry. Musculoskeletal: Reports pain in anterior aspect of right lateral abdomen. Historical: - Allergies: no known allergies; - Home Meds: 1. amlodipine 10 mg Oral tab 1 tab once daily 2. Diovan 320 mg Oral tab 0.5 tab once daily 3. elequis 5mg twice a day 4. Lipitor 20 mg Oral tab 1 tab once daily 5. Omeprazole Oral 2 times per day 6. Plavix 75 mg Oral tab 1 tab once daily - PMHx: A-fib; cardiac stent; Sciatica; Hypercholesterolemia; CAD; GERD; BPH; Hypertension; - PSHx: Cardiac stents; - Social history: No barriers to communication noted, The patient speaks fluent Macedonian, Speaks appropriately for age, Smoking status: Patient states former smoker of tobacco. - Family history: Not pertinent. - : The pt / caregiver states he / she is on anticoagulants: Plavix. Eliquis Home medication list is obtained from the patient. - Exposure Risk Screening:: None identified. Screenin:22 Screening information is obtained from the patient. Fall risk: No risks identified. mk4 Assistance ADL's: Requires assistance with housework, assistance is provided by family members. Abuse/DV Screen: The patient / caregiver reports he/she is: not in a situation that causes fear, pain or injury. Nutritional screening: No deficits noted. home support is adequate. 19:32 Advance Directives: Currently, there is no health care proxy. There is no active DNR ms2 order. There is no living will. There is no Power of Drencher. Advance directive information has not previously been placed in an [facility] medical record. Further advance directive information is declined. Assessment: 18:22 General: Appears uncomfortable. Pain: Location: anterior aspect of right lateral mk4 abdomen. GI: Abdomen is non- distended Bowel sounds present X 4 quads. Abd is soft and non tender. 19:27 Adult Sepsis Screening: The patient does not have new or worsening altered mentation. ms2 Patient's respiratory rate is less than 22. Systolic blood pressure is greater than 100. Patient has a qSOFA score of 0- Negative Sepsis Screen. No known or suspected infection- Negative Sepsis Screen. General: Appears in no apparent distress, Behavior is cooperative. Pain: Location: back Pain currently is 7 out of 10 on a pain scale. Neurological: Level of Consciousness is awake, alert, obeys commands. Respiratory: No deficits noted. Airway is patent Respiratory effort is even, unlabored, Respiratory pattern is regular, symmetrical. Derm: Skin is pink, warm & dry. Vital Signs: 17:11 BP 157 / 97; Pulse 69; Resp 16; Temp 97.7(O); Pulse Ox 100% on R/A; Weight 83.91 kg; sew Height 6 ft. 1 in. (185.42 cm); Pain 6/10; 19:28 BP 181 / 77; Pulse 64; Resp 22 S; Temp 96(O); Pulse Ox 95% on R/A; ms2 17:11 Body Mass Index 24.41 (83.91 kg, 185.42 cm) sew 19:28 pt will take his 2 bp meds when he gets home ms2 Vitals: 17:11 Log In Time: October 27, 2016 at 17:05. sew ED Course: 17:11 Patient visited by Amanda Vicente. sew 17:11 Asad Gill is Private Physician. sew 17:11 Patient moved to Waiting sew 17:12 Patient visited by Amanda Vicente. sew 17:12 Patient moved to Pre RCE sew 17:22 Triage Initiated ead 17:27 Patient moved to Triage 2 ead 17:44 Shashi Mercado PA is PHCP. mo1 17:44 Amanda Elsie MD is Attending Physician. mo1 17:49 Patient visited by Viji Jimenez RN. ck1 17:49 Patient visited by Shashi Mercado PA. mo1 18:06 Patient moved to I2 / M2 ck1 18:09 Urinalysis Sent. mlb1 18:09 Urine Culture Sent. mlb1 18:22 The patient / caregiver is instructed regarding the plan of care and ED course. mk4 18:22 Basic Metabolic Profile Sent. mk4 18:22 CBC with Diff Sent. mk4 18:22 Lipase Sent. mk4 18:22 Liver Profile Sent. mk4 18:22 Inserted saline lock: 20 gauge in right antecubital area and blood collected. mk4 18:25 Patient visited by Brook Mejía RN. mk4 19:07 CT ABD & PELVIS: No Contrast Returned. EDMS 19:12 Asad Gill is Referral Physician. mo1 19:15 Patient visited by Brenden Helms,RN. ms2 19:27 Patient visited by Brenden Helms,SHELLY. ms2 19:29 [facility] [place] into [employer] and attached to record. zo 19:29 The patient / caregiver is instructed regarding the plan of care and ED course. ms2 19:29 Discontinued IV intact, bleeding controlled, pressure dressing applied, No ms2 redness/swelling at site. No procedures done that require assistance. 20:20 Patient name changed from Yasir\S\\S\Hill\S\ to Yasir\S\ \S\Hill. EDMS 01/20 10:41 T-Sheet-- Draft Copy was scanned into [employer] and attached to record. gb 10:41 Radiology Report was scanned into [employer] and attached to record. gb Administered Medications: 10/27 18:20 Drug: NS 0.9% 1000 ml [sodium chloride 0.9 % intravenous solution] Route: IV; Rate: jjr bolus; Site: right antecubital; 19:25 Drug: Ondansetron 4 mg Route: IVP; Site: right antecubital; ms2 Intake: 19:28 PO: 0.00ml; IV: 875.00ml (NS); Total: 875.00ml. ms2 Order Results: Lab Order: Basic Metabolic Profile; SPEC'M 10/27/16 18:10 Test: GLUCOSE, FASTING; Value: 111; Range: 83-110; Abnormal: Above high normal; Units: MG/DL; Status: F Test: BLOOD UREA NITROGEN; Value: 17; Range: 7-18; Units: MG/DL; Status: F Test: CREATININE FOR GFR; Value: 1.31; Range: 0.70-1.30; Abnormal: Above high normal; Units: MG/DL; Status: F Test: GLOMERULAR FILTRATION RATE; Value: 55.1; Range: >35; Status: F Test: SODIUM LEVEL; Value: 135; Range: 136-145; Abnormal: Below low normal; Units: MEQ/L; Status: F Test: POTASSIUM SERUM; Value: 3.9; Range: 3.5-5.1; Units: MEQ/L; Status: F Test: CHLORIDE LEVEL; Value: 97; Range: 98-107; Abnormal: Below low normal; Units: MEQ/L; Status: F Test: CARBON DIOXIDE LEVEL; Value: 28; Range: 21-32; Units: MEQ/L; Status: F Test: ANION GAP; Value: 10; Range: 8-16; Units: MEQ/L; Status: F Test: CALCIUM LEVEL; Value: 9.4; Range: 8.8-10.2; Units: MG/DL; Status: F Test Note: ; Units are mL/min/1.73 m2 Chronic Kidney Disease Staging per NKF: Stage I & II GFR >=60 Normal to Mildly Decreased Stage III GFR 30-59 Moderately Decreased Stage IV GFR 15-29 Severely Decreased Stage V GFR <15 Very Little GFR Left ESRD GFR <15 on SPARE HAND Lab Order: CBC with Diff; SPEC'M 10/27/16 18:10 Test: WHITE BLOOD COUNT; Value: 9.5; Range: 4.0-10.0; Units: K/mm3; Status: F Test: RED BLOOD COUNT; Value: 4.95; Range: 4.30-6.10; Units: M/mm3; Status: F Test: HEMOGLOBIN; Value: 15.2; Range: 14.0-18.0; Units: g/dl; Status: F Test: HEMATOCRIT; Value: 43.4; Range: 42.0-52.0; Units: %; Status: F Test: MEAN CORPUSCULAR VOLUME; Value: 87.8; Range: 80.0-96.0; Units: fl; Status: F Test: MEAN CORPUSCULAR HEMOGLOBIN; Value: 30.8; Range: 27.0-33.0; Units: pg; Status: F Test: MEAN CORPUSCULAR HGB CONC; Value: 35.0; Range: 32.0-36.5; Units: g/dl; Status: F Test: RED CELL DISTRIBUTION WIDTH; Value: 12.6; Range: 11.5-14.5; Units: %; Status: F Test: PLATELET COUNT, AUTOMATED; Value: 279; Range: 150-450; Units: k/mm3; Status: F Test: NEUTROPHILS %; Value: 69.6; Range: 36.0-66.0; Abnormal: Above high normal; Units: %; Status: F Test: LYMPH %; Value: 23.2; Range: 24.0-44.0; Abnormal: Below low normal; Units: %; Status: F Test: MONO %; Value: 4.8; Range: 0.0-5.0; Units: %; Status: F Test: EOS %; Value: 0.6; Range: 0.0-3.0; Units: %; Status: F Test: BASO %; Value: 0.3; Range: 0.0-1.0; Units: %; Status: F Test: LARGE UNSTAINED CELL %; Value: 1.4; Range: 0.0-4.0; Units: %; Status: F Test: NEUTROPHILS #; Value: 6.6; Range: 1.8-7.7; Units: K/mm3; Status: F Test: LYMPH #; Value: 2.2; Range: 1.5-4.5; Units: K/mm3; Status: F Test: MONO #; Value: 0.5; Range: 0.0-0.8; Units: K/mm3; Status: F Test: EOS #; Value: 0.1; Range: 0.0-0.50; Units: K/mm3; Status: F Test: BASO #; Value: 0.0; Range: 0.0-0.2; Units: K/mm3; Status: F Test: LARGE UNSTAINED CELL #; Value: 0.1; Range: 0.0-0.4; Units: K/mm3; Status: F Lab Order: Lipase; [facility] 10/27/16 18:10 Test: LIPASE; Value: 168; Range: 73-393; Units: U/L; Status: F Lab Order: Liver Profile; [facility] 10/27/16 18:10 Test: AST/SGOT; Value: 12; Range: 15-37; Abnormal: Below low normal; Units: U/L; Status: F Test: ALT/SGPT; Value: 18; Range: 12-78; Units: U/L; Status: F Test: ALKALINE PHOSPHATASE; Value: 79; Range: 45-117; Units: U/L; Status: F Test: BILIRUBIN,TOTAL; Value: 0.8; Range: 0.2-1.0; Units: MG/DL; Status: F Test: BILIRUBIN,DIRECT; Value: 0.2; Range: 0.0-0.2; Units: MG/DL; Status: F Test: TOTAL PROTEIN; Value: 7.0; Range: 6.4-8.2; Units: GM/DL; Status: F Test: ALBUMIN; Value: 4.0; Range: 3.2-5.2; Units: GM/DL; Status: F Test: ALBUMIN/GLOBULIN RATIO; Value: 1.33; Range: 1.00-1.93; Status: F Lab Order: Urinalysis; [facility] 10/27/16 18:09 Test: APPEARANCE, URINE; Value: CLEAR; Range: CLEAR; Status: F Test: COLOR, URINE; Value: LISA; Range: YELLOW; Status: F Test: PH,URINE; Value: 5.0; Range: 5.0-9.0; Units: UNITS; Status: F Test: SPECIFIC GRAVITY URINE AUTO; Value: 1.020; Range: 1.002-1.035; Status: F Test: PROTEIN, URINE AUTO; Value: NEGATIVE; Range: NEGATIVE; Units: mg/dL; Status: F Test: GLUCOSE, URINE (UA) AUTO; Value: NEGATIVE; Range: NEGATIVE; Units: mg/dL; Status: F Test: KETONE, URINE AUTO; Value: NEGATIVE; Range: NEGATIVE; Units: mg/dL; Status: F Test: UROBILINOGEN, URINE AUTO; Value: 4.0; Range: 0.0-2.0; Abnormal: Above high normal; Units: mg/dL; Status: F Test: BILIRUBIN, URINE AUTO; Value: NEGATIVE; Range: NEGATIVE; Status: F Test: NITRITE, URINE AUTO; Value: POSITIVE; Range: NEGATIVE; Status: F Test: LEUKOCYTE ESTERASE, URINE AUTO; Value: NEGATIVE; Range: NEGATIVE; Status: F Test: BLOOD, URINE BLOOD; Value: NEGATIVE; Range: NEGATIVE; Status: F Test: WBC, URINE AUTO; Value: 0; Range: 0-3; Units: /HPF; Status: F Test: RBC, URINE AUTO; Value: 3; Range: 0-3; Units: /HPF; Status: F Test: BACTERIA, URINE AUTO; Value: NEGATIVE; Range: NEGATIVE; Status: F Test: SQUAMOUS EPITHELIAL CELL UR AU; Value: 0; Range: 0-6; Units: /HPF; Status: F Test: MUCUS, URINE; Value: SMALL; Range: NEGATIVE; Status: F Test: HYALINE CAST, URINE AUTO; Value: 6; Range: 0-1; Units: /LPF; Status: F Lab Order: Urine Culture; SPE[facility] 10/27/16 18:09 Test: URINE CULTURE; Value: ORGANISM 1: ESCHERICHIA COLI; Status: F Test: URINE CULTURE; Value: ESCHERICHIA COLI; Status: F Test: URINE CULTURE; Value: COLONY COUNT CFU/ml 30,000; Status: F Test: URINE CULTURE; Value: GRAM NEG SENSI - VITEK 80; Status: F Test: URINE CULTURE; Value: Method: VIT2; Status: F Test: URINE CULTURE; Value: EXTD BRD SPCTRM BETA LACTAMASE -; Status: F Test: URINE CULTURE; Value: TRIMETHOPRIM/SULFAMETHOXAZOLE <=20 S; Status: F Test: URINE CULTURE; Value: AMPICILLIN >=32 R; Status: F Test: URINE CULTURE; Value: GENTAMICIN <=1 S; Status: F Test: URINE CULTURE; Value: NITROFURANTOIN <=16 S; Status: F Test: URINE CULTURE; Value: CEFAZOLIN 8 S; Status: F Test: URINE CULTURE; Value: LEVOFLOXACIN <=0.12 S; Status: F Test: URINE CULTURE; Value: TOBRAMYCIN <=1 S; Status: F Test: URINE CULTURE; Value: CEFTRIAXONE <=1 S; Status: F Test: URINE CULTURE; Value: CEFTAZIDIME <=1 S; Status: F Test: URINE CULTURE; Value: AMPICILLIN/SULBACTAM >=32 R; Status: F Test: URINE CULTURE; Value: PIPERACILLIN/TAZOBACTAM 8 S; Status: F Test: URINE CULTURE; Value: AZTREONAM <=1 S; Status: F Test: URINE CULTURE; Value: ERTAPENEM <=0.5 S; Status: F Test: URINE CULTURE; Value: MEROPENEM <=0.25 S; Status: F Test: URINE CULTURE; Value: TIGECYCLINE <=0.5 S; Status: F Test: URINE CULTURE; Value: CEFEPIME <=1 S; Status: F Radiology Order: CT ABD & PELVIS: No Contrast Test: CT ABD & PELVIS: No Contrast REASON FOR EXAMINATION: right flank; ; CLINICAL HISTORY: Abdominal pain.; TECHNIQUE: Multiple axial, sagittal and coronal CT images were obtained through the abdomen and pelvi; s without administration of oral or IV contrast material.; COMMENTS:; Several small hepatic hypodensities are present to small to characterize most bowel small cysts versu; s hemangiomas. The liver is of uniform attenuation without mass or defect. There is no intra or extr; ahepatic biliary ductal dilatation. The spleen is normal. The gallbladder is within normal limits. Th; e pancreas is of normal contour and attenuation characteristics. There is no evidence of adrenal mass; .; The kidneys are normal in size, shape and configuration. No renal or ureteral calculi are identified.; There is no hydroureter or hydronephrosis.; There is no evidence for appendicitis. There is no bowel wall thickening. No evidence for small or la; rge bowel obstruction. There is no evidence of abdominal ascites or lymphadenopathy.; There is no evidence of intrinsic or extrinsic bladder mass. There is no pelvic ascites or lymphadeno; filiberto.; Prostate is mildly enlarged and contains calcifications with; Images of the lung bases show no evidence of pleural or parenchymal mass. There are no pleural effusi; ons.; The bony structures are free of lytic or blastic lesions. Multilevel degenerative changes are seen in; volving the thoracolumbar spine.; Scattered calcifications are seen involving the aorta and major branches compatible with atherosclero; sis.; IMPRESSION:; No acute abdominal or pelvic pathology.; Thank you for your kind referral of this patient.; ; Outcome: 19:12 Discharge ordered by Provider. mo1 19:29 Discharge Assessment: patient administered narcotics - no. The following High Risk ms2 Discharge criteria are identified: None. Discharged to home ambulatory, with family. Condition: stable. Discharge instructions given to patient, Instructed on discharge instructions, follow up and referral plans. medication usage, no driving heavy equipment, no drinking with medication, Demonstrated understanding of instructions, medications, Pt was receptive of discharge instructions/ teaching. Prescriptions given X one faxed. No special radiology studies were completed. Property sent home with patient. 19:33 Patient left the ED. ms2 Signatures: Dispatcher [employer] EDMS Brenden Helms RN RN ms2 Stacy Berrios, Reg Reg Shashi Haywood RN RN mlb1 Viji Jimenez RN RN ck1 Jennifer Saxena Jessica, RN RN Amanda Alejandre Michael, PA PA mo1 Brook Mejía RN RN mk4 Bushra GargRN RN jaylen Corrections: (The following items were deleted from the chart) 19:32 19:28 BP 181 / 77; Pulse 64bpm; Resp 22bpm; Spontaneous; Pulse Ox 95% RA; Temp 96F ms2 Oral; ms2 Chart Complete MTDD
--- NOTE | 2016-10-29 20:34 | EDDOCDS ---
Physician Documentation [facility] Name: Yasir Guevara Age: 86 yrs Sex: Male : 1930 Arrival Date: 10/27/2016 Time: 17:07 Bed I2 / M2 Private MD: Asad Gill Disposition: 10/27/16 19:12 Discharged to Home/Self Care. Impression: Low back pain, Dehydration, Contusion of lower back and pelvis. - Condition is Stable. - Discharge Instructions: Back Pain, Adult, Contusion, Dehydration, Elderly. - Prescriptions for Tylenol- Codeine #3 300-30 mg Oral Tablet - take 1 tablet by ORAL route every 6 hours As needed MDD: 4 tabs; 20 tablet. ZOFRAN ODT 4 mg - dissolve 1 tablet by ORAL route 4 times per day As needed do not chew, do not swallow whole; 10 tablet. - Medication Reconciliation, Local Pharmacy Hours form. - Follow up: Asad Gill; When: Call to arrange an appointment; Reason: Recheck today's complaints, Continuance of care. - Problem is new. - Symptoms are unchanged. Historical: - Allergies: no known allergies; - Home Meds: 1. amlodipine 10 mg Oral tab 1 tab once daily 2. Diovan 320 mg Oral tab 0.5 tab once daily 3. elequis 5mg twice a day 4. Lipitor 20 mg Oral tab 1 tab once daily 5. Omeprazole Oral 2 times per day 6. Plavix 75 mg Oral tab 1 tab once daily - PMHx: A-fib; cardiac stent; Sciatica; Hypercholesterolemia; CAD; GERD; BPH; Hypertension; - PSHx: Cardiac stents; - Social history: No barriers to communication noted, The patient speaks fluent Irish, Speaks appropriately for age, Smoking status: Patient states former smoker of tobacco. - Family history: Not pertinent. - : The pt / caregiver states he / she is on anticoagulants: Plavix. Eliquis Home medication list is obtained from the patient. - Exposure Risk Screening:: None identified. Vital Signs: 10/27 17:11 BP 157 / 97; Pulse 69; Resp 16; Temp 97.7(O); Pulse Ox 100% on R/A; Weight 83.91 kg / sew 184.99 lbs; Height 6 ft. 1 in. (185.42 cm); Pain 6/10; 19:28 BP 181 / 77; Pulse 64; Resp 22 S; Temp 96(O); Pulse Ox 95% on R/A; ms2 17:11 Body Mass Index 24.41 (83.91 kg, 185.42 cm) sew 19:28 pt will take his 2 bp meds when he gets home ms2 MDM: 18:03 NS 0.9% 1000 ml IV at bolus once ordered. mo1 18:03 IV Saline Lock ordered. mo1 18:03 Undress patient appropriately for examination ordered. mo1 18:04 CT ABD & PELVIS: No Contrast Ordered. EDMS 18:05 Basic Metabolic Profile Ordered. EDMS 18:05 CBC with Diff Ordered. EDMS 18:05 Lipase Ordered. EDMS 18:05 Liver Profile Ordered. EDMS 18:05 Urinalysis Ordered. EDMS 18:05 Urine Culture Ordered. EDMS 18:05 NOTHING BY MOUTH+DIET ordered. EDMS 18:58 CBC with Diff Reviewed. mo1 18:58 Urinalysis Reviewed. mo1 18:59 Basic Metabolic Profile Reviewed. mo1 18:59 Liver Profile Reviewed. mo1 18:59 Lipase Reviewed. mo1 19:05 Ondansetron 4 mg IVP once ordered. mo1 19:24 Financial registration complete. zo 19:29 [facility] [place] [place] Payment Agreement was scanned into [employer] and attached to record. zo 10/28 10:41 T-Sheet-- Draft Copy was scanned into [employer] and attached to record. gb 10:41 Radiology Report was scanned into [employer] and attached to record. gb Administered Medications: 10/27 18:20 Drug: NS 0.9% 1000 ml [sodium chloride 0.9 % intravenous solution] Route: IV; Rate: jjr bolus; Site: right antecubital; 19:25 Drug: Ondansetron 4 mg Route: IVP; Site: right antecubital; ms2 Signatures: Dispatcher [employer] Brenden Lindo RN RN ms2 Stacy Berrios, Reg Reg gb Jennifer Saxena Michael, PA PA mo1 Broko Mejía RN RN mk4 Bushra Garg RN RN ead Raymond, Jessica RN jjr The chart was reviewed and I authenticate all verbal orders and agree with the evaluation and treatment provided.Attachments: 19:29 [facility] Payment Agreement zo 10/28 10:41 T-Sheet-- Draft Copy gb Chart Complete MTDD
== END 2016-10-27 19:33 | disposition home or self-care (01) ==
LOC: M ED 17:07
DX: R10.30 Lower abdominal pain, unspecified (principal); E86.0 Dehydration; R11.0 Nausea; I48.91 Unspecified atrial fibrillation; M54.30 Sciatica, unspecified side; E78.00 Pure hypercholesterolemia, unspecified; I25.10 Atherosclerotic heart disease of native coronary artery without angina pectoris; K21.9 Gastro-esophageal reflux disease without esophagitis; N40.0 Benign prostatic hyperplasia without lower urinary tract symptoms; I10 Essential (primary) hypertension; Z95.5 Presence of coronary angioplasty implant and graft; Z79.01 Long term (current) use of anticoagulants; Z79.899 Other long term (current) drug therapy; Z79.02 Long term (current) use of antithrombotics/antiplatelets; Z87.891 Personal history of nicotine dependence
CPT/HCPCS: 36415; 74176; 80048; 80076; 81001; 83690; 85025; 87088; 87186; 96374; 99284; J2405

== ENCOUNTER 2016-11-01 09:50 | Inpatient (IN) | payer MEDICARE ==
[~2016-11-01] VITALS: Ht 185.4 cm; Wt 82.8 kg
[2016-11-01] MEDS ORDERED: ONDANSETRON 4MG/2ML VIAL (J2405) As Ordered ONE (10:34)
[2016-11-01 10:47] LABS: BASO % 0.3 % (0.0-1.0); EOS # 0.1 K/mm3 (0.0-0.50); EOS % 1.3 % (0.0-3.0); LARGE UNSTAINED CELL # 0.1 K/mm3 (0.0-0.4); LARGE UNSTAINED CELL % 1.2 % (0.0-4.0); LYMPH # 1.7 K/mm3 (1.5-4.5); LYMPH % 19.8 % (24.0-44.0); MEAN CORPUSCULAR HEMOGLOBIN 30.8 pg (27.0-33.0); MEAN CORPUSCULAR HGB CONC 35.8 g/dl (32.0-36.5); MEAN CORPUSCULAR VOLUME 86.1 fl (80.0-96.0); MONO # 0.4 K/mm3 (0.0-0.8); MONO % 4.9 % (0.0-5.0); NEUTROPHILS # 6.2 K/mm3 (1.8-7.7); NEUTROPHILS % 72.5 % (36.0-66.0); PLATELET COUNT, AUTOMATED 239 k/mm3 (150-450); RED CELL DISTRIBUTION WIDTH 12.6 % (11.5-14.5); WHITE BLOOD COUNT 8.6 K/mm3 (4.0-10.0)
[2016-11-01 11:06] LABS: ALBUMIN 3.3 GM/DL (3.2-5.2); ALKALINE PHOSPHATASE 69 U/L (45-117); ALT/SGPT 18 U/L (12-78); AMYLASE 30 U/L (25-115); ANION GAP 10 MEQ/L (8-16); AST/SGOT 13 U/L (15-37); BILIRUBIN,DIRECT 0.2 MG/DL (0.0-0.2); BLOOD UREA NITROGEN 15 MG/DL (7-18); CALCIUM LEVEL 8.8 MG/DL (8.8-10.2); CARBON DIOXIDE LEVEL 24 MEQ/L (21-32); CHLORIDE LEVEL 95 MEQ/L (98-107); CREATININE FOR GFR 0.94 MG/DL (0.70-1.30); GLOMERULAR FILTRATION RATE > 60.0 (>35); GLUCOSE, FASTING 99 MG/DL (83-110); POTASSIUM SERUM 4.3 MEQ/L (3.5-5.1); SODIUM LEVEL 129 MEQ/L (136-145); TOTAL PROTEIN 6.3 GM/DL (6.4-8.2)
[2016-11-01 11:08] LABS: ERYTHROCYTE SEDIMENTATION RATE 14 mm/hr (0-30)
[2016-11-01] MEDS ORDERED: ISOVUE-370 76% 100ML VIAL (Q9967) As Ordered ONE (11:33)
--- NOTE | 2016-11-01 11:37 | REP ---
PORTABLE CHEST X-RAY: Sitting AP view. HISTORY: Abdominal pain. FINDINGS: The lungs are symmetrically aerated and free of infiltrate. There is no evidence of free subdiaphragmatic air. Heart size is normal. The aorta is calcific and slightly tortuous. Pulmonary vasculature is not increased. No significant change from June 24, 2016 prior study. IMPRESSION: No active disease. Signed by Taj Carroll MD 11/01/2016 01:18 P
--- NOTE | 2016-11-01 12:37 | REP ---
CT STUDY OF THE ABDOMEN AND PELVIS WITHOUT AND WITH IV CONTRAST: Without oral contrast. HISTORY: Right-sided abdominal pain, pyelonephritis verses calculus. Comparison CT study is from October 27, 2016. That prior study was interpreted as showing no acute abdominal or pelvic abnormality. CT contrast dose: 900 mL of Isovue [address] FINDINGS: Digital preliminary police judge radiograph shows an unremarkable bowel gas pattern. The lung bases show mild linear bibasilar fibrosis but are otherwise clear. No pleural effusion is seen. There are four to five small well-circumscribed low density nonenhancing liver lesions compatible with cysts. The largest of these measures 1.4 cm in greatest diameter. These are unchanged when compared with September 27, 2013 prior study. No splenic lesion is seen. Gallbladder is unremarkable. No pancreatic abnormality is observed. No adrenal lesion is seen on either side. Atherosclerotic calcification is seen in a normal caliber aorta. 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 This is unchanged from the 2013 study. There is a cyst at the interpolar level of the right kidney. This measures 2.0 cm in diameter. In 2013 it measured 1.4 cm in diameter. No other renal cyst is seen. No intrarenal calculus is observed on either side. No hydronephrosis is seen. No ureteral calculus is seen. The kidneys enhance symmetrically post contrast. No retroperitoneal mass or adenopathy is observed. There is an area of pericolonic fat streaking adjacent to the sigmoid colon. This may reflect acute diverticulitis. No abscess or free air is seen. No abnormality is seen in the appendix. Small bowel loops are unremarkable. There are dystrophic calcifications in the prostate. Urinary bladder is unremarkable. No abdominal wall defect is seen. No bony destructive lesion is appreciated. IMPRESSION: 1. No evidence of urinary tract calculus, hydronephrosis, or pyelonephritis. 2. There is a 2.0 cm cyst in the right kidney. 3. There are several small stable hepatic cysts. 4. Left colonic diverticulosis with mild pericolonic fat streaking suggestive of acute diverticulitis. No abscess or free air. Signed by Taj Carroll MD 11/01/2016 01:19 P
[2016-11-01] MEDS ORDERED: METOCLOPRAMIDE INJ 10MG/2ML VIAL (J2765) As Ordered ONE (12:40)
[2016-11-01] MEDS ORDERED: VALS1TAB47 PO (13:08)
[2016-11-01] MEDS ORDERED: ELIQ5TAB PO (13:08)
[2016-11-01] MEDS ORDERED: PANT40TA2 PO (13:08)
[2016-11-01] MEDS ORDERED: PLAV75TA38 PO (13:08)
[2016-11-01] MEDS ORDERED: AMLO5TAB2 PO (13:08)
[2016-11-01] MEDS ORDERED: ACET30TAB PO (13:08)
[2016-11-01] MEDS ORDERED: TIMO5OPD OU (13:08)
[2016-11-01] MEDS ORDERED: ATOR1TAB21 PO (13:08)
[2016-11-01 13:20] LABS: ANION GAP 10 MEQ/L (8-16); BLOOD UREA NITROGEN 14 MG/DL (7-18); CALCIUM LEVEL 8.3 MG/DL (8.8-10.2); CARBON DIOXIDE LEVEL 24 MEQ/L (21-32); CHLORIDE LEVEL 95 MEQ/L (98-107); CREATININE FOR GFR 0.85 MG/DL (0.70-1.30); GLOMERULAR FILTRATION RATE > 60.0 (>35); GLUCOSE, FASTING 80 MG/DL (83-110); POTASSIUM SERUM 4.1 MEQ/L (3.5-5.1); SODIUM LEVEL 129 MEQ/L (136-145)
[2016-11-01] MEDS ORDERED: CIPROFLOXACIN 500 MG TAB As Ordered ONE (13:26)
[2016-11-01] MEDS ORDERED: metroNIDAZOLE (FLAGYL) 250 MG TAB As Ordered ONE (13:26)
[2016-11-01] MEDS ORDERED: PERCOCET 5MG/325MG TAB PO PRN (15:45)
[2016-11-01] MEDS ORDERED: MORPHINE 2 MG/ML 1ML SYRINGE IV PRN (15:45)
[2016-11-01] MEDS ORDERED: ACETAMINOPH W/CODEINE #3 TAB UD PO PRN (15:45)
--- NOTE | 2016-11-01 16:22 | HPE ---
DATE OF ADMISSION: 11/01/2016 PRIMARY CARE PHYSICIAN: Dr. Maxx Gill CHIEF COMPLAINT: Abdominal pain. HISTORY OF THE PRESENT ILLNESS: The patient is an 86-year-old man who tells me that approximately 4 days ago, he began to have right lower quadrant abdominal pain, progressively worsening in nature, worse with food and eating, worse with lying on his right side, that has progressively worsened. It is colicky in nature and associated today with nausea and vomiting, prompting him to present to the emergency room. The patient tells me he has never had this pain before. He denies chest pain, shortness of breath, fevers, chills,sick contacts, changes in dietary habits. At the present time, the patient does not feel any better than when he presented. He tells me he has had poor oral intake secondary to pain associated with eating for the last several days. PAST MEDICAL HISTORY: Atrial fibrillation. Hypertension. Gastroesophageal reflux disease. Coronary artery disease. Dyslipidemia. Sciatica. Cardiac stents. HOME MEDICATIONS: - amlodipine 5 mg daily - Eliquis 5 mg twice a day - Plavix 75 mg daily - omeprazole twice a day - Lipitor 20 mg daily - Diovan 180 mg daily PAST SURGICAL HISTORY: Cardiac stents. SOCIAL HISTORY: The patient was a former smoker in the distant past. Rarely consumes alcohol. Last drink was on . He lives with his daughter. FAMILY HISTORY: Noncontributory. REVIEW OF SYSTEMS: Negative other than in the history of the present illness (HPI). ALLERGIES: No known drug allergies. PHYSICAL EXAMINATION: Blood pressure 157/82, pulse 65, respiratory rate 18, temperature 97.3, oxygen saturation 99% on room air. GENERAL: He is a very pleasant elderly man lying on the stretcher at a 60-degree angle. He speaks slowly but is in no acute distress and he is oriented. HEENT: Cranial nerves II-XII are grossly intact. He has moist mucous membranes. No elevation of jugular venous pressure (JVP). CARDIOVASCULAR EXAM: S1, S2, regular. He is not tachycardic. RESPIRATORY EXAM: Clear. ABDOMINAL EXAM: Bowel sounds are present. The abdomen is soft. There is tenderness to palpation in the right lower and left lower quadrants. EXTREMITIES: No clubbing, cyanosis, or edema. LABORATORY STUDIES: Today, WBC 8.6, hemoglobin 14.3, hematocrit 40.0, platelet count 239. ESR is 14. Chemistry panel: Sodium 129, potassium 4.3, chloride 95, bicarbonate 24, BUN 15, creatinine 0.9. Liver function tests are essentially unremarkable. He has a lipase within normal limits. UA is unremarkable. Microbiology: Urine culture is pending. CT of the abdomen and pelvis revealed a 2 cm cyst on the right kidney, several small stable hepatic cysts, left colonic diverticulosis with mild pericolonic fat streaking suggestive of acute diverticulitis. No abscess or free air. The patient also did have a chest x-ray, which revealed no active disease. ASSESSMENT AND PLAN: This is an 86-year-old man presenting with what appears to be acute diverticulitis. Problems; 1. Acute diverticulitis. The patient presents with nausea, vomiting, bilateral lower quadrant abdominal pain and hyponatremia. The patient was given a trial of oral antibiotics, which he failed in the emergency room. He is afebrile and does not have leukocytosis but has inability to tolerate oral antibiotics and for this reason, I am admitting him to the medical-surgical floor to Dr. Gomes's service, who will continue following the patient at 7:00 a.m. tomorrow. The patient will be on intravenous (IV) Zosyn. We will keep him nothing by mouth (n.p.o.) except for his medications. He will be provided with antiemetics and pain control. Should his symptoms not be improved over the next 24 hours, could consider general surgery consultation. However, if he is improving, could consider advancing him to a clear liquid diet and switching to oral (p.o.) antibiotics. 2. Hyponatremia. Likely hypovolemic, hyponatremia secondary to dehydration. He received one liter of normal saline in the emergency room. We will continue to check his basic metabolic panel (BMPs) with a repeat in 5-6 hours. We will also check urine electrolytes, provide him with gentle normal saline. 3. Atrial fibrillation. The patient is rate controlled without any agents. He was continued on Eliquis. 4. Hypertension. The patient will be continued on his Diovan and amlodipine. 5. Gastroesophageal reflux disease. Will switch his proton pump inhibitor (PPI) to IV while he is in the hospital. 6. Dyslipidemia. The patient is on a statin. 7. Coronary artery disease. The patient is on Plavix, a statin. He is not on a beta cody. Will defer to his outpatient providers. 8. Deep vein thrombosis (DVT) prophylaxis. The patient is on Eliquis. DISPOSITION: The patient was admitted to the medical-surgical floor. NIKKI
--- NOTE | 2016-11-01 17:19 | EDDOCDS ---
Physician Documentation [facility] Name: Yasir Guevara Age: 86 yrs Sex: Male : 1930 Arrival Date: 11/01/2016 Time: 09:50 Bed I6 Private MD: Asad Gill Disposition: 11/01/16 15:36 Hospitalization ordered by Birdie Leo for Inpatient Admission. Preliminary diagnosis are Hypo-osmolality and hyponatremia, Nausea with vomiting, unspecified, Lower abdominal pain, unspecified - RLQ, Diverticulitis of large intestine without perforation or abscess without bleeding. - Bed requested for 4 [place]. - Status is Inpatient Admission. srm - Condition is Stable. - Problem is new. - Symptoms are unchanged. Historical: - Allergies: no known allergies; - Home Meds: 1. amlodipine 10 mg Oral tab 1 tab once daily 2. elequis 5mg twice a day 3. Plavix 75 mg Oral tab 1 tab once daily 4. Omeprazole Oral 2 times per day 5. Lipitor 20 mg Oral tab 1 tab once daily 6. Diovan 320 mg Oral tab 0.5 tab once daily - PMHx: Hypertension; A-fib; CAD; GERD; Hypercholesterolemia; Sciatica; cardiac stent; BPH; - PSHx: Cardiac stents; - Social history: Smoking status: Patient states was never smoker of tobacco. No barriers to communication noted, The patient speaks fluent Icelandic, Speaks appropriately for age. - Family history: Not pertinent. - : The pt / caregiver states he / she is not on anticoagulants. Home medication list is obtained from the patient. - Exposure Risk Screening:: None identified. Vital Signs: 11/01 09:52 BP 157 / 82; Pulse 65; Resp 18; Temp 97.3(O); Pulse Ox 99% ; Weight 86.18 kg / 189.99 cmb lbs; Height 6 ft. 1 in. (185.42 cm); Pain 4/10; 12:29 BP 154 / 73; Pulse 53; Resp 20; Temp 96.0; Pulse Ox 97% ; Pain 5/10; jam1 15:22 BP 187 / 86; Pulse 60; Resp 20; Temp 95.6; Pulse Ox 97% ; Pain 6/10; jam1 16:45 BP 188 / 86; Pulse 65; Resp 20; Temp 96.9; Pulse Ox 97% ; Pain 6/10; jam1 09:52 Body Mass Index 25.07 (86.18 kg, 185.42 cm) cmb MDM: 10:24 IV Saline Lock ordered. ml 10:24 NS 0.9% 1000 ml IV at bolus once ordered. ml 10:24 Ondansetron 4 mg IVP once ordered. ml 10:25 Chest, 1 View Ordered. EDMS 10:25 CBC with Diff Ordered. EDMS 10:25 MED Profile Ordered. EDMS 10:25 Liver Profile Ordered. EDMS 10:25 Amylase Ordered. EDMS 10:25 Lipase Ordered. EDMS 10:25 UA Ordered. EDMS 10:25 Urine Culture Ordered. EDMS 10:29 ERYTHROCYTE SEDIMENTATION RATE Ordered. EDMS 10:29 C REACTIVE PROTEIN QUANTITATIV Ordered. EDMS 11:20 NS 0.9% 500 ml IV at bolus once ordered. dt4 11:20 CBC with Diff Reviewed. dt4 11:20 MED Profile Reviewed. dt4 11:20 Liver Profile Reviewed. dt4 11:20 Amylase Reviewed. dt4 11:20 Lipase Reviewed. dt4 11:20 ERYTHROCYTE SEDIMENTATION RATE Reviewed. dt4 11:20 C REACTIVE PROTEIN QUANTITATIV Reviewed. dt4 11:22 CT ABD & PELVIS: W/O FOL BY WIT+CT Ordered. EDMS 11:22 BED REQUEST+ADM ordered. EDMS 11:34 Financial registration complete. mm15 12:39 Ciprofloxacin 500 mg PO once ordered. dt4 12:39 metroNIDAZOLE 500 mg PO once ordered. dt4 12:39 Metoclopramide 10 mg IV at 40 mg/hr once over 15 mins ordered. dt4 12:40 BMP: REPEAT. THANK YOU. Ordered. EDMS 12:40 ED course: SPOKE WITH DR. LEO AT THIS TIME REGARDING POSSIBLE ADMISSION OF THIS PT. dt4 ADVISED TO REPEAT BMP TO CHECK NA LEVEL AND TRY CIPRO/FLAGYL PO. IF PT NOT ABLE TO TOLERATE PO MEDS OR NA LEVEL HAS WORSENED, DR. LEO WILL ADMIT TO HOSPITAL. . 12:56 [id number] Payment Agreement was scanned into [employer] and attached to record. mm15 14:19 ED course: PT HELD DOWN CIPRO AND FLAGYL IN ROOM, STATES NO NAUSEA AT THIS TIME. SPOKE dt4 WITH DR. LEO AGAIN AND ADVISED TO HAVE PT HAVE BMP REDRAWN TOMORROW AND HAVE IT SENT TO PCP FOR FOLLOW UP. WILL DISCHARGE THIS PT WITH CIPRO AND FLAGYL PRESCRIPTIONS. . 14:57 ED course: CALLED AND SPOKE WITH DR. LEO AGAIN AT 1435, DUE TO PT STARTING TO DRY dt4 HEAVE IN ROOM, JUST AFTER DISCHARGE PAPERS WERE PRINTED. DAUGHTER CAME OUT TO PROVIDER DESK TO INFORM PT STILL NOT FEELING WELL AND NAUSEA RETURNING. ADVISED TO MONITOR PT FOR ANOTHER 2 HOURS AND TO CALL HIM BACK IN 2 HOURS (AT 1635) TO REEVALUATE. . 15:27 ED course: DR. LEO IN ROOM WITH PT AT THIS TIME.. dt4 15:44 Admission / Observation Status ordered. EDMS 15:44 NPO DIET ordered. EDMS 15:45 OSMOLALITY, SERUM Ordered. EDMS 15:45 OSMOLALITY,URINE Ordered. EDMS 15:45 SODIUM,RANDOM URINE Ordered. EDMS 15:45 CREATININE,RANDOM URINE Ordered. EDMS 15:46 LACTIC ACID LEVEL, LACTATE Ordered. EDMS 15:46 BASIC METABOLIC PROFILE Ordered. EDMS Administered Medications: 10:39 Drug: NS 0.9% 1000 ml [sodium chloride 0.9 % intravenous solution] Route: IV; Rate: mcp bolus; Site: left antecubital; 12:45 Follow up: IV Status: Completed infusion srm 10:39 Drug: Ondansetron 4 mg [ondansetron HCl 2 mg/mL intravenous solution (2 mL)] Route: mcp IVP; Site: left antecubital; 12:45 Drug: Metoclopramide 10 mg [metoclopramide 5 mg/mL injection solution] Route: IV; Rate: srm 40 mg/hr; Infused Over: 15 mins; Site: right antecubital; 13:31 Follow up: IV Status: Completed infusion ms18 13:32 Drug: Ciprofloxacin 500 mg [ciprofloxacin 500 mg tablet (1 tabs)] Route: PO; ms18 13:32 Drug: metroNIDAZOLE 500 mg [metronidazole 250 mg tablet (2 tabs)] Route: PO; ms18 13:53 Drug: NS 0.9% 500 ml [sodium chloride 0.9 % intravenous solution] Route: IV; Rate: ms18 bolus; Site: left antecubital; Signatures: Dispatcher [facility]CA Saud Sandhu MD MD ml Sleeman, Kacey, RN RN kcs Michelson, Staci, RN RN srm McGrath Marlynn mm15 Bushra Garg RN RN ead Tschudi, Diane, PA-C PA-C dt4 Catina Dey RN, mcp, Mallory RN ms18 The chart was reviewed and I authenticate all verbal orders and agree with the evaluation and treatment provided.Corrections: (The following items were deleted from the chart) 10:27 10:25 ERYTHROCYTE SEDIMENTATION RATE+LAB ordered. EDMS EDMS 10:27 10:25 C REACTIVE PROTEIN QUANTITATIV+LAB ordered. EDMS EDMS Attachments: 12:56 [facility] Payment Agreement mm15 MTDD
--- NOTE | 2016-11-01 17:20 | EDDOCDS ---
Nurse's Notes [facility] Name: Yasir Guevara Age: 86 yrs Sex: Male : 1930 Arrival Date: 11/01/2016 Time: 09:50 Bed I6 Private MD: Asad Gill Diagnosis: Hypo-osmolality and hyponatremia;Nausea with vomiting, unspecified;Lower abdominal pain, unspecified-RLQ;Diverticulitis of large intestine without perforation or abscess without bleeding Presentation: 11/01 09:55 Presenting complaint: Patient states: "I think I'm dehydrated." Pt c/o n/v. Pt reports ead he was seen here last week for n/v, flank pain, and UTI. Adult Sepsis Screening: The patient does not have new or worsening altered mentation. Patient's respiratory rate is less than 22. Systolic blood pressure is greater than 100. Patient has a qSOFA score of 0- Negative Sepsis Screen. Suicide/Homicide risk assessment- the patient denies having any suicidal and/or homicidal ideations and does not present with any other emotional, behavioral or mental health complaints. Status: Patient is not a car servicer or dependent. Transition of care: patient was not received from another setting of care. 09:55 Acuity: ELIER Level 3 ead 09:55 Method Of Arrival: Walkin/Carried/Asstd ead Triage Assessment: 09:58 General: Appears in no apparent distress, well nourished, well groomed, Behavior is ead appropriate for age, cooperative. Pain: Location: anterior aspect of right lateral abdomen Pain currently is 7 out of 10 on a pain scale. Neurological: Level of Consciousness is awake, alert, obeys commands, Oriented to person, place, time, Moves all extremities. Gait is steady, Speech is normal, Facial symmetry appears normal. Respiratory: Airway is patent Respiratory effort is even, unlabored. GI: Reports nausea, vomiting, right flank pain. Derm: Skin is pink, warm & dry. Historical: - Allergies: no known allergies; - Home Meds: 1. amlodipine 10 mg Oral tab 1 tab once daily 2. elequis 5mg twice a day 3. Plavix 75 mg Oral tab 1 tab once daily 4. Omeprazole Oral 2 times per day 5. Lipitor 20 mg Oral tab 1 tab once daily 6. Diovan 320 mg Oral tab 0.5 tab once daily - PMHx: Hypertension; A-fib; CAD; GERD; Hypercholesterolemia; Sciatica; cardiac stent; BPH; - PSHx: Cardiac stents; - Social history: Smoking status: Patient states was never smoker of tobacco. No barriers to communication noted, The patient speaks fluent [place], Speaks appropriately for age. - Family history: Not pertinent. - : The pt / caregiver states he / she is not on anticoagulants. Home medication list is obtained from the patient. - Exposure Risk Screening:: None identified. Screenin:42 Screening information is obtained from the patient. Primary language is [place]. Fall jam1 risk: No risks identified. Assistance ADL's: requires no assistance with activities of daily living. Abuse/DV Screen: The patient / caregiver reports he/she is: not in a situation that causes fear, pain or injury. Nutritional screening: No deficits noted. Exposure Risk Screening: None identified. Advance Directives: Currently, there is a health care proxy, daughter robin manrique. There is an active DNR order but there is no copy available at this time. There is a living will, but a copy is not available at this time. There is an active Power of Geography Head, daughter of pt robin manrique. Advance directive information has been placed on a prior [facility] medical record, but the patient/ family does not know when. Further advance directive information is declined. home support is adequate. Assessment: 10:40 General: Appears uncomfortable, Behavior is appropriate for age, cooperative. srm Neurological: No deficits noted. EENT: No deficits noted. Respiratory: Airway is patent Respiratory effort is even, unlabored, Breath sounds are clear bilaterally. Reports pain right lower ribs/back pain. GI: Abdomen is non- distended Bowel sounds present X 4 quads. Abd is soft and non tender X 4 quads. GI: other having dry heaves. Derm: No deficits noted. 11:35 General: Appears in no apparent distress, comfortable, Behavior is appropriate for age, ms18 cooperative, Pt in no acute distress. Pt resting on stretcher, warm blankets given. Family at bedside. Will continue to monitor pt. Respiratory: Airway is patent Respiratory effort is even, unlabored. Derm: Skin is pink, warm & dry. 12:52 General: Appears D Doug AUSTIN spoke with dr natarajan- hold NS 500 CC bolus at this time. srm 13:35 Reassessment: Patient appears in no apparent distress at this time. General: Appears in srm no apparent distress, Behavior is appropriate for age, cooperative. EENT: No deficits noted. Cardiovascular: No deficits noted. Respiratory: No deficits noted. 14:15 General: Appears pt tolerated pills and fluid. PA spoke with dr belle for d/c. srm 15:15 General: pt started with dry heaves. dr belle notified for admission. . srm 16:01 General: Appears resting on stretcher visitors at bedside. no further dry heaves or srm vomiting. . 16:48 General: Appears in no apparent distress, Behavior is appropriate for age, cooperative. srm Neurological: No deficits noted. EENT: No deficits noted. Cardiovascular: No deficits noted. Respiratory: Airway is patent Respiratory effort is even, unlabored, Breath sounds are clear bilaterally. GI: Abdomen is non- distended Bowel sounds present X 4 quads. Abd is soft and non tender X 4 quads. Reports NAUSEA BETTER BUT REMAINS. 17:17 Reassessment: Patient appears in no apparent distress at this time. [facility] Vital Signs: 09:52 BP 157 / 82; Pulse 65; Resp 18; Temp 97.3(O); Pulse Ox 99% ; Weight 86.18 kg; Height 6 cmb ft. 1 in. (185.42 cm); Pain 4/10; 12:29 BP 154 / 73; Pulse 53; Resp 20; Temp 96.0; Pulse Ox 97% ; Pain 5/10; jam1 15:22 BP 187 / 86; Pulse 60; Resp 20; Temp 95.6; Pulse Ox 97% ; Pain 6/10; jam1 16:45 BP 188 / 86; Pulse 65; Resp 20; Temp 96.9; Pulse Ox 97% ; Pain 6/10; jam1 09:52 Body Mass Index 25.07 (86.18 kg, 185.42 cm) [facility] Vitals: 09:52 Log In Time: November 01, 2016 at 09:50. [facility] ED Course: 09:52 Patient visited by Angy Armando. cmb 09:52 Asad Gill is Private Physician. cmb 09:52 Patient moved to Waiting cmb 09:54 Patient moved to Pre RCE cmb 09:56 Triage Initiated ead 10:01 Patient moved to Triage 2 kr3 10:06 Saud Sandhu MD is Attending Physician. ml 10:06 Patient visited by Saud Sandhu MD. ml 10:15 Patient moved to I6 / kr3 10:38 The patient / caregiver is instructed regarding the plan of care and ED course. srm Accompanied by Family Member, Patient has correct armband on for positive identification. Placed in gown. Bed in low position. Call light in reach. Side rails up X 1. 10:38 C REACTIVE PROTEIN QUANTITATIV Sent. srm 10:38 ERYTHROCYTE SEDIMENTATION RATE Sent. srm 10:38 Amylase Sent. srm 10:38 Lipase Sent. srm 10:38 Liver Profile Sent. srm 10:38 MED Profile Sent. srm 10:38 CBC with Diff Sent. srm 10:38 Inserted saline lock: 20 gauge in left antecubital area and blood collected. srm 10:39 Patient visited by Desiree Marie RN. srm 10:41 Patient visited by Desiree Marie RN. srm 10:47 Amna Camacho PA-C is PHCP. dt4 11:34 Patient visited by Christal Newell RN. ms18 11:49 Chest, 1 View Returned. EDMS 12:03 Urine Culture Sent. srm 12:03 UA Sent. srm 12:29 Patient visited by Amna Camacho PA-C. dt4 12:38 Birdie Natarajan die finisher forging. nq 12:39 Patient visited by Desiree Marie RN. srm 12:43 BMP: REPEAT. THANK YOU. Sent. jam1 12:52 Patient visited by Desiree Marie RN. srm 12:56 [facility] Payment Agreement was scanned into [employer] and attached to record. mm15 13:21 CT ABD & PELVIS: W/O FOL BY WIT+CT Returned. EDMS 13:31 Patient visited by Christal Newell RN. ms18 13:41 Pillow given. jam1 13:50 Patient name changed from Yasir\\S\\\\S\\Hill\\S\\ to Yasir\\S\\ \\S\\Hill. EDMS 14:02 Patient visited by Christal Newell RN. ms18 14:06 Patient visited by Amna Camacho PA-C. dt4 14:21 Asad Gill is Referral Physician. dt4 14:23 Birdie Natarajan die finisher forging. nq 15:07 Patient visited by Christal Newell RN. ms18 15:34 Birdie Natarajan is Hospitalizing Provider. dt4 16:06 Patient visited by Desiree Marie, SHELLY. srm 16:48 No procedures done that require assistance. srm 16:53 report tubed and faxed to [facility]- spoke with cathy. srm 16:54 Patient visited by Desiree Marie, SHELLY. srm Administered Medications: 10:39 Drug: NS 0.9% 1000 ml [sodium chloride 0.9 % intravenous solution] Route: IV; Rate: mcp bolus; Site: left antecubital; 12:45 Follow up: IV Status: Completed infusion srm 10:39 Drug: Ondansetron 4 mg [ondansetron HCl 2 mg/mL intravenous solution (2 mL)] Route: mcp IVP; Site: left antecubital; 12:45 Drug: Metoclopramide 10 mg [metoclopramide 5 mg/mL injection solution] Route: IV; Rate: srm 40 mg/hr; Infused Over: 15 mins; Site: right antecubital; 13:31 Follow up: IV Status: Completed infusion ms18 13:32 Drug: Ciprofloxacin 500 mg [ciprofloxacin 500 mg tablet (1 tabs)] Route: PO; ms18 13:32 Drug: metroNIDAZOLE 500 mg [metronidazole 250 mg tablet (2 tabs)] Route: PO; ms18 13:53 Drug: NS 0.9% 500 ml [sodium chloride 0.9 % intravenous solution] Route: IV; Rate: ms18 bolus; Site: left antecubital; Intake: 16:48 IV: 1000.00ml (NS); Total: 1000.00ml. srm Output: 16:48 Urine: 625.00ml (Voided); Total: 625.00ml. srm Order Results: Lab Order: CBC with Diff; SPEC'M 11/01/16 10:36 Test: WHITE BLOOD COUNT; Value: 8.6; Range: 4.0-10.0; Units: K/mm3; Status: F Test: RED BLOOD COUNT; Value: 4.65; Range: 4.30-6.10; Units: M/mm3; Status: F Test: HEMOGLOBIN; Value: 14.3; Range: 14.0-18.0; Units: g/dl; Status: F Test: HEMATOCRIT; Value: 40.0; Range: 42.0-52.0; Abnormal: Below low normal; Units: %; Status: F Test: MEAN CORPUSCULAR VOLUME; Value: 86.1; Range: 80.0-96.0; Units: fl; Status: F Test: MEAN CORPUSCULAR HEMOGLOBIN; Value: 30.8; Range: 27.0-33.0; Units: pg; Status: F Test: MEAN CORPUSCULAR HGB CONC; Value: 35.8; Range: 32.0-36.5; Units: g/dl; Status: F Test: RED CELL DISTRIBUTION WIDTH; Value: 12.6; Range: 11.5-14.5; Units: %; Status: F Test: PLATELET COUNT, AUTOMATED; Value: 239; Range: 150-450; Units: k/mm3; Status: F Test: NEUTROPHILS %; Value: 72.5; Range: 36.0-66.0; Abnormal: Above high normal; Units: %; Status: F Test: LYMPH %; Value: 19.8; Range: 24.0-44.0; Abnormal: Below low normal; Units: %; Status: F Test: MONO %; Value: 4.9; Range: 0.0-5.0; Units: %; Status: F Test: EOS %; Value: 1.3; Range: 0.0-3.0; Units: %; Status: F Test: BASO %; Value: 0.3; Range: 0.0-1.0; Units: %; Status: F Test: LARGE UNSTAINED CELL %; Value: 1.2; Range: 0.0-4.0; Units: %; Status: F Test: NEUTROPHILS #; Value: 6.2; Range: 1.8-7.7; Units: K/mm3; Status: F Test: LYMPH #; Value: 1.7; Range: 1.5-4.5; Units: K/mm3; Status: F Test: MONO #; Value: 0.4; Range: 0.0-0.8; Units: K/mm3; Status: F Test: EOS #; Value: 0.1; Range: 0.0-0.50; Units: K/mm3; Status: F Test: BASO #; Value: 0.0; Range: 0.0-0.2; Units: K/mm3; Status: F Test: LARGE UNSTAINED CELL #; Value: 0.1; Range: 0.0-0.4; Units: K/mm3; Status: F Lab Order: MED Profile; SPEC'M 11/01/16 10:36 Test: GLUCOSE, FASTING; Value: 99; Range: 83-110; Units: MG/DL; Status: F Test: BLOOD UREA NITROGEN; Value: 15; Range: 7-18; Units: MG/DL; Status: F Test: CREATININE FOR GFR; Value: 0.94; Range: 0.70-1.30; Units: MG/DL; Status: F Test: GLOMERULAR FILTRATION RATE; Value: > 60.0; Range: >35; Status: F Test: SODIUM LEVEL; Value: 129; Range: 136-145; Abnormal: Below low normal; Units: MEQ/L; Status: F Test: POTASSIUM SERUM; Value: 4.3; Range: 3.5-5.1; Units: MEQ/L; Status: F Test: CHLORIDE LEVEL; Value: 95; Range: 98-107; Abnormal: Below low normal; Units: MEQ/L; Status: F Test: CARBON DIOXIDE LEVEL; Value: 24; Range: 21-32; Units: MEQ/L; Status: F Test: ANION GAP; Value: 10; Range: 8-16; Units: MEQ/L; Status: F Test: CALCIUM LEVEL; Value: 8.8; Range: 8.8-10.2; Units: MG/DL; Status: F Test Note: ; Units are mL/min/1.73 m2 Chronic Kidney Disease Staging per NKF: Stage I & II GFR >=60 Normal to Mildly Decreased Stage III GFR 30-59 Moderately Decreased Stage IV GFR 15-29 Severely Decreased Stage V GFR <15 Very Little GFR Left ESRD GFR <15 on [employer] Lab Order: Liver Profile; SPEC'M 11/01/16 10:36 Test: AST/SGOT; Value: 13; Range: 15-37; Abnormal: Below low normal; Units: U/L; Status: F Test: ALT/SGPT; Value: 18; Range: 12-78; Units: U/L; Status: F Test: ALKALINE PHOSPHATASE; Value: 69; Range: 45-117; Units: U/L; Status: F Test: BILIRUBIN,TOTAL; Value: 1.0; Range: 0.2-1.0; Units: MG/DL; Status: F Test: BILIRUBIN,DIRECT; Value: 0.2; Range: 0.0-0.2; Units: MG/DL; Status: F Test: TOTAL PROTEIN; Value: 6.3; Range: 6.4-8.2; Abnormal: Below low normal; Units: GM/DL; Status: F Test: ALBUMIN; Value: 3.3; Range: 3.2-5.2; Units: GM/DL; Status: F Test: ALBUMIN/GLOBULIN RATIO; Value: 1.10; Range: 1.00-1.93; Status: F Lab Order: Amylase; [facility] 11/01/16 10:36 Test: AMYLASE; Value: 30; Range: 25-115; Units: U/L; Status: F Lab Order: Lipase; [facility] 11/01/16 10:36 Test: LIPASE; Value: 159; Range: 73-393; Units: U/L; Status: F Lab Order: UA; [facility] 11/01/16 12:00 Test: APPEARANCE, URINE; Value: CLEAR; Range: CLEAR; Status: F Test: COLOR, URINE; Value: YELLOW; Range: YELLOW; Status: F Test: PH,URINE; Value: 5.0; Range: 5.0-9.0; Units: UNITS; Status: F Test: SPECIFIC GRAVITY URINE AUTO; Value: 1.029; Range: 1.002-1.035; Status: F Test: PROTEIN, URINE AUTO; Value: NEGATIVE; Range: NEGATIVE; Units: mg/dL; Status: F Test: GLUCOSE, URINE (UA) AUTO; Value: NEGATIVE; Range: NEGATIVE; Units: mg/dL; Status: F Test: KETONE, URINE AUTO; Value: NEGATIVE; Range: NEGATIVE; Units: mg/dL; Status: F Test: UROBILINOGEN, URINE AUTO; Value: 0.2; Range: 0.0-2.0; Units: mg/dL; Status: F Test: BILIRUBIN, URINE AUTO; Value: NEGATIVE; Range: NEGATIVE; Status: F Test: NITRITE, URINE AUTO; Value: NEGATIVE; Range: NEGATIVE; Status: F Test: LEUKOCYTE ESTERASE, URINE AUTO; Value: NEGATIVE; Range: NEGATIVE; Status: F Test: BLOOD, URINE BLOOD; Value: NEGATIVE; Range: NEGATIVE; Status: F Test: WBC, URINE AUTO; Value: 0; Range: 0-3; Units: /HPF; Status: F Test: RBC, URINE AUTO; Value: 1; Range: 0-3; Units: /HPF; Status: F Test: BACTERIA, URINE AUTO; Value: NEGATIVE; Range: NEGATIVE; Status: F Test: SQUAMOUS EPITHELIAL CELL UR AU; Value: 0; Range: 0-6; Units: /HPF; Status: F Test: MUCUS, URINE; Value: SMALL; Range: NEGATIVE; Status: F Test: HYALINE CAST, URINE AUTO; Value: 0; Range: 0-1; Units: /LPF; Status: F Lab Order: ERYTHROCYTE SEDIMENTATION RATE; SPEC'M 11/01/16 10:36 Test: ERYTHROCYTE SEDIMENTATION RATE; Value: 14; Range: 0-30; Units: mm/hr; Status: F Lab Order: C REACTIVE PROTEIN QUANTITATIV; SPEC'M 11/01/16 10:36 Test: C REACTIVE PROTEIN QUANTITATIV; Value: < 0.30; Range: 0.00-0.30; Units: MG/DL; Status: F Lab Order: BMP: REPEAT. THANK YOU.; SPEC'M 11/01/16 12:47 Test: GLUCOSE, FASTING; Value: 80; Range: 83-110; Abnormal: Below low normal; Units: MG/DL; Status: F Test: BLOOD UREA NITROGEN; Value: 14; Range: 7-18; Units: MG/DL; Status: F Test: CREATININE FOR GFR; Value: 0.85; Range: 0.70-1.30; Units: MG/DL; Status: F Test: GLOMERULAR FILTRATION RATE; Value: > 60.0; Range: >35; Status: F Test: SODIUM LEVEL; Value: 129; Range: 136-145; Abnormal: Below low normal; Units: MEQ/L; Status: F Test: POTASSIUM SERUM; Value: 4.1; Range: 3.5-5.1; Units: MEQ/L; Status: F Test: CHLORIDE LEVEL; Value: 95; Range: 98-107; Abnormal: Below low normal; Units: MEQ/L; Status: F Test: CARBON DIOXIDE LEVEL; Value: 24; Range: 21-32; Units: MEQ/L; Status: F Test: ANION GAP; Value: 10; Range: 8-16; Units: MEQ/L; Status: F Test: CALCIUM LEVEL; Value: 8.3; Range: 8.8-10.2; Abnormal: Below low normal; Units: MG/DL; Status: F Test Note: ; Units are mL/min/1.73 m2 Chronic Kidney Disease Staging per NKF: Stage I & II GFR >=60 Normal to Mildly Decreased Stage III GFR 30-59 Moderately Decreased Stage IV GFR 15-29 Severely Decreased Stage V GFR <15 Very Little GFR Left ESRD GFR <15 on [employer] Radiology Order: Chest, 1 View Test: Chest, 1 View REASON FOR EXAMINATION: abdl pain; PORTABLE CHEST X-RAY: Sitting AP view.; ; HISTORY: Abdominal pain.; ; FINDINGS: The lungs are symmetrically aerated and free of infiltrate. There is; no evidence of free subdiaphragmatic air. Heart size is normal. The aorta is; calcific and slightly tortuous. Pulmonary vasculature is not increased. No; significant change from June 24, 2016 prior study.; ; IMPRESSION: No active disease.; ; ; Signed by; Taj Carroll MD 11/01/2016 01:18 P; Radiology Order: CT ABD & PELVIS: W/O FOL BY WIT+CT Test: CT ABD & PELVIS: W/O FOL BY WIT+CT REASON FOR EXAMINATION: RIGHT SIDED ABD PAIN, PYELO VS STONE; CT STUDY OF THE ABDOMEN AND PELVIS WITHOUT AND WITH IV CONTRAST: Without oral; contrast.; ; HISTORY: Right-sided abdominal pain, pyelonephritis verses calculus.; ; Comparison CT study is from October 27, 2016. That prior study was interpreted; as showing no acute abdominal or pelvic abnormality.; ; CT contrast dose: 900 mL of Isovue 370 is administered intravenously.; ; CT FINDINGS: Digital preliminary seed potato cutter radiograph shows an unremarkable bowel; gas pattern. The lung bases show mild linear bibasilar fibrosis but are; otherwise clear. No pleural effusion is seen.; ; There are four to five small well-circumscribed low density nonenhancing liver; lesions compatible with cysts. The largest of these measures 1.4 cm in greatest; diameter. These are unchanged when compared with September 27, 2013 prior study.; No splenic lesion is seen. Gallbladder is unremarkable. No pancreatic; abnormality is observed. No adrenal lesion is seen on either side.; Atherosclerotic calcification is seen in a normal caliber aorta. 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 This is unchanged from the 2013 study.; ; There is a cyst at the interpolar level of the right kidney. This measures 2.0; cm in diameter. In 2013 it measured 1.4 cm in diameter. No other renal cyst is; seen. No intrarenal calculus is observed on either side. No hydronephrosis is; seen. No ureteral calculus is seen. The kidneys enhance symmetrically post; contrast. No retroperitoneal mass or adenopathy is observed.; ; There is an area of pericolonic fat streaking adjacent to the sigmoid colon.; This may reflect acute diverticulitis. No abscess or free air is seen. No; abnormality is seen in the appendix. Small bowel loops are unremarkable. There; are dystrophic calcifications in the prostate. Urinary bladder is unremarkable.; No abdominal wall defect is seen. No bony destructive lesion is appreciated.; ; IMPRESSION:; ; 1. No evidence of urinary tract calculus, hydronephrosis, or pyelonephritis.; ; 2. There is a 2.0 cm cyst in the right kidney.; ; 3. There are several small stable hepatic cysts.; ; 4. Left colonic diverticulosis with mild pericolonic fat streaking suggestive of; acute diverticulitis. No abscess or free air.; ; ; Signed by; Taj Carroll MD 11/01/2016 01:19 P; Outcome: 14:23 Discharge ordered by Provider. dt4 15:36 Decision to Hospitalize by Provider. dt4 17:17 Discharge Assessment: Patient awake, alert and oriented x 3. No cognitive and/or srm functional deficits noted. Patient verbalized understanding of disposition instructions. patient administered narcotics - no. The following High Risk Discharge criteria are identified: None. Admitted to Med/Surg accompanied by tech, via stretcher, with chart. Condition: good Condition: stable. CT Study completed. Property sent home with patient. 17:19 Patient left the ED. srm Signatures: Dispatcher [facility] EDSaud Song MD MD ml Cynthia, Desiree, RN RN srm Dey, Catina, RN RN yakov Giron, Bobbi, STRAWBERRY GROWER STRAWBERRY GROWER jam1 Alma Devries,RN RN kr3 Angy Armando cmb Birdie Natarajan Marlynn mm15 Bushra Garg,RN RN linnd Amna Camacho, PA-C PA-C [id number] Christal NewellRN RN ms18 MTDD
[2016-11-01 17:30] VITALS: BP 168/86
[2016-11-01] MEDS: VALSARTAN 80 MG TAB (DIOVAN) PO SCH (18:13)
[2016-11-01] MEDS: NS 1,000 ML IV SCH (18:14)
[2016-11-01] MEDS: amLODIPine 5 MG TAB PO SCH (18:14)
[2016-11-01] MEDS: ONDANSETRON 4MG/2ML VIAL (J2405) IV PRN (18:14)
[2016-11-01] MEDS: ATORVASTATIN 20 MG TAB PO SCH (18:14)
[2016-11-01] MEDS: PIPERACILLIN/TAZOBACTAM SOD 3.375 GM in D5W MINI-BAG PLUS 50 ML IV SCH (18:14)
[2016-11-01] MEDS: CLOPIDOGREL 75 MG TAB PO SCH (18:14)
[2016-11-01 20:30] LABS: ANION GAP 11 MEQ/L (8-16); BLOOD UREA NITROGEN 11 MG/DL (7-18); CALCIUM LEVEL 8.1 MG/DL (8.8-10.2); CARBON DIOXIDE LEVEL 23 MEQ/L (21-32); CHLORIDE LEVEL 96 MEQ/L (98-107); CREATININE FOR GFR 0.84 MG/DL (0.70-1.30); GLOMERULAR FILTRATION RATE > 60.0 (>35); GLUCOSE, FASTING 88 MG/DL (83-110); POTASSIUM SERUM 3.7 MEQ/L (3.5-5.1); SODIUM LEVEL 130 MEQ/L (136-145)
[2016-11-01] MEDS: APIXABAN 5 MG TAB (ELIQUIS) PO SCH (20:36)
[2016-11-01] MEDS: TIMOLOL MALEATE 0.5% OPHTH SOLN 5 ML OU SCH (20:36)
[2016-11-01] MEDS: PANTOPRAZOLE 40MG INJ (PROTONIX) (C9113) IV SCH (20:36)
[2016-11-01 22:00] VITALS: BP 142/82
[2016-11-02] MEDS: PIPERACILLIN/TAZOBACTAM SOD 3.375 GM in D5W MINI-BAG PLUS 50 ML IV SCH ×3 (01:56→17:49)
[2016-11-02 06:00] VITALS: BP 144/87
[2016-11-02] MEDS: ONDANSETRON 4MG/2ML VIAL (J2405) IV PRN ×2 (06:43→20:12)
[2016-11-02 06:53] LABS: MEAN CORPUSCULAR HEMOGLOBIN 30.7 pg (27.0-33.0); MEAN CORPUSCULAR VOLUME 83.8 fl (80.0-96.0); RED CELL DISTRIBUTION WIDTH 12.6 % (11.5-14.5); WHITE BLOOD COUNT 6.6 K/mm3 (4.0-10.0)
[2016-11-02 07:00] LABS: ANION GAP 11 MEQ/L (8-16); BLOOD UREA NITROGEN 11 MG/DL (7-18); CALCIUM LEVEL 8.3 MG/DL (8.8-10.2); CARBON DIOXIDE LEVEL 23 MEQ/L (21-32); CHLORIDE LEVEL 94 MEQ/L (98-107); CREATININE FOR GFR 0.86 MG/DL (0.70-1.30); GLOMERULAR FILTRATION RATE > 60.0 (>35); GLUCOSE, FASTING 84 MG/DL (83-110); POTASSIUM SERUM 3.8 MEQ/L (3.5-5.1); SODIUM LEVEL 128 MEQ/L (136-145)
[2016-11-02 07:01] LABS: MEAN CORPUSCULAR HGB CONC 36.6 g/dl (32.0-36.5)
[2016-11-02] MEDS: TIMOLOL MALEATE 0.5% OPHTH SOLN 5 ML OU SCH ×2 (09:35→20:04)
[2016-11-02] MEDS: ATORVASTATIN 20 MG TAB PO SCH (09:35)
[2016-11-02] MEDS: PANTOPRAZOLE 40MG INJ (PROTONIX) (C9113) IV SCH ×2 (09:35→20:04)
[2016-11-02] MEDS: APIXABAN 5 MG TAB (ELIQUIS) PO SCH ×2 (09:35→20:04)
[2016-11-02] MEDS: CLOPIDOGREL 75 MG TAB PO SCH (09:35)
[2016-11-02] MEDS: amLODIPine 5 MG TAB PO SCH (09:36)
[2016-11-02] MEDS: VALSARTAN 80 MG TAB (DIOVAN) PO SCH (09:36)
[2016-11-02] MEDS: METOCLOPRAMIDE INJ 10MG/2ML VIAL (J2765) IV SCH ×2 (10:24→17:49)
--- NOTE | 2016-11-02 11:11 | IPNPDOC ---
Assessment/Plan Date Seen The patient was seen on 11/02/16. Plan / VTE VTE Prophylaxis Ordered?: Yes Plan Plan Text 1. Acute diverticulitis. Patient remains afebrile and without leukocytosis this morning He denies any abdominal pain at this time but notes that he still has some nausea Continue Zoalvino Reglan also added Continue IV Zosyn for now Gentle IV fluid hydration We will try to advance the patient to a clear liquid diet later this morning Continue to monitor the patient's progress 2. Hyponatremia. Possibly secondary to hypovolemia from vomiting The serum sodium here has fluctuated between 128 and 1:30 Urine studies noted Continue on gentle IV fluid hydration for now We'll repeat BMP later in the day 3. Atrial fibrillation. Rate controlled, continue on Eliquis 4. Hypertension Stable, continue on Diovan and amlodipine. 5. Gastroesophageal reflux disease Continue PPI 6. Dyslipidemia. Continue statin. 7. Coronary artery disease. Continue on Plavix, statin. 8. Deep vein thrombosis (DVT) prophylaxis. Already on Eliquis. Subjective Review of Systems CC/HPI The patient is a 86-year-old male admitted with a reason for visit of Diverticulitis. General: Denies: Chills, Night Sweats Constitutional: Denies: Chills, Fever Eyes: Denies: Pain, Vision change ENT: Denies: Ear Pain, Head Aches Skin: Denies: Lesions, Rash Pulmonary: Denies: Cough, Dyspnea Cardiovascular: Denies: Chest Pain, Orthopnea, Palpitations Gastrointestinal: Reports: Nausea, Denies: Abdominal Pain, Vomiting Hematologic: Denies: Bleeding Excessively, Bruising Objective Physical Examination General Exam: Positive: Alert, Cooperative, No Acute Distress ENT Exam: Positive: Atraumatic, Mucous membr. moist/pink Neck Exam: Negative: JVD Chest Exam: Positive: Clear to auscultation, Normal air movement Heart Exam: Positive: Normal S1, Normal S2, Rate Normal Abdomen Exam: Positive: Soft, Negative: Tenderness Male Exam: Negative: Edema, Erythema Vital Signs/I&O Vital Signs Date Time Temp Pulse Resp B/P Pulse Ox O2 Delivery O2 Flow Rate FiO2 11/02/16 09:40 Room Air 11/02/16 09:36 56 166/86 11/02/16 06:00 97.0 19 96 I&O- Last 24 Hours up to 6 AM 11/02/16 06:00 Intake Total 50 ml Output Total 1175 ml Balance -1125 ml Laboratory Data Labs 24H Laboratory Tests 2 11/01/16 12:00: Urine Amorphous Sediment , Urine Appearance CLEAR, Urine Color YELLOW, Urine pH 5.0, Urine Specific Sterling 1.029, Urine Protein NEGATIVE, Urine Glucose (UA) NEGATIVE, Urine Ketones NEGATIVE, Urine Urobilinogen 0.2, Urine Bilirubin NEGATIVE, Urine Leukocyte Esterase NEGATIVE, Urine Bacteria (Auto) NEGATIVE, Urine Blood NEGATIVE, Urine Calcium Carbonate Cryst(Auto) , Urine Calcium Oxalate Cryst (Auto) , Urine Calcium Phosphate Dulce Maria (Auto) , Urine Cellular Casts , Urine Cystine Crystals , Urine Granular Casts (Auto) , Urine Hyaline Casts (Auto) 0, Urine Leucine Crystals , Urine Mucus (Auto) SMALL, Urine Nitrite NEGATIVE, Urine Oval Fat Bodies (Auto) , Urine RBC (Auto) 1, Urine Renal Epithelial Cells , Urine Sperm (Auto) , Urine Squamous Epithelial Cells 0 , Urine Transitional Epithelial Cells , Urine Trichomonas (Auto) , Urine Triple Phosphate Cryst (Auto) , Urine Tyrosine Crystals , Urine Uric Acid Crystals ( Auto) , Urine WBC (Auto) 0, Urine Waxy Casts (Auto) , Urine Yeast-Like Cells ( Auto) 11/01/16 12:47: Anion Gap 10, Blood Urea Nitrogen 14, Creatinine 0.85, Sodium Level 129L, Potassium Level 4.1, Chloride Level 95L, Carbon Dioxide Level 24, Calcium Level 8.3L, Glomerular Filtration Rate > 60.0 11/01/16 19:46: Anion Gap 11, Blood Urea Nitrogen 11, Creatinine 0.84, Sodium Level 130L, Potassium Level 3.7, Chloride Level 96L, Carbon Dioxide Level 23, Calcium Level 8.1L, Glomerular Filtration Rate > 60.0, Lactic Acid Level 0.7, Osmolality 259L 11/02/16 02:05: Urine Random Creatinine 55.2, Urine Random Osmolality 611, Urine Random Sodium 193 11/02/16 06:29: Anion Gap 11, Blood Urea Nitrogen 11, Creatinine 0.86, Sodium Level 128L, Potassium Level 3.8, Chloride Level 94L, Carbon Dioxide Level 23, Calcium Level 8.3L, Glomerular Filtration Rate > 60.0 CBC/BMP Laboratory Tests 11/01/16 12:47 Calcium Level 8.3 L 11/01/16 19:46 Calcium Level 8.1 L 11/02/16 06:29 Calcium Level 8.3 L, Red Blood Count 4.27 L, Mean Corpuscular Volume 83.8, Mean Corpuscular Hemoglobin 30.7, Mean Corpuscular Hemoglobin Concent 36.6 H, Red Cell Distribution Width 12.6 Microbiology Microbiology 11/01/16 Urine Culture, Received Pending RUDDY GILES MD Nov 02, 2016 11:11
[2016-11-02 13:57] LABS: ANION GAP 10 MEQ/L (8-16); BLOOD UREA NITROGEN 11 MG/DL (7-18); CALCIUM LEVEL 8.7 MG/DL (8.8-10.2); CARBON DIOXIDE LEVEL 24 MEQ/L (21-32); CHLORIDE LEVEL 92 MEQ/L (98-107); CREATININE FOR GFR 0.86 MG/DL (0.70-1.30); GLOMERULAR FILTRATION RATE > 60.0 (>35); GLUCOSE, FASTING 103 MG/DL (83-110); POTASSIUM SERUM 3.8 MEQ/L (3.5-5.1); SODIUM LEVEL 126 MEQ/L (136-145)
[2016-11-02 14:00] VITALS: BP 143/72
[2016-11-02] MEDS: NS 1,000 ML IV SCH (15:03)
[2016-11-02] MEDS: rOPINIRole 0.25 MG TAB(REQUIP) PO PRN (16:02)
[2016-11-02 22:00] VITALS: BP 145/80
[2016-11-03] MEDS: rOPINIRole 0.25 MG TAB(REQUIP) PO PRN ×3 (00:07→18:09)
[2016-11-03] MEDS: PIPERACILLIN/TAZOBACTAM SOD 3.375 GM in D5W MINI-BAG PLUS 50 ML IV SCH ×3 (02:09→18:09)
[2016-11-03] MEDS: METOCLOPRAMIDE INJ 10MG/2ML VIAL (J2765) IV SCH ×3 (02:09→18:09)
[2016-11-03 06:00] VITALS: BP 144/74
[2016-11-03 06:31] LABS: MEAN CORPUSCULAR HEMOGLOBIN 30.6 pg (27.0-33.0); MEAN CORPUSCULAR HGB CONC 35.3 g/dl (32.0-36.5); MEAN CORPUSCULAR VOLUME 86.5 fl (80.0-96.0); RED CELL DISTRIBUTION WIDTH 13.3 % (11.5-14.5); WHITE BLOOD COUNT 6.8 K/mm3 (4.0-10.0)
[2016-11-03 06:44] LABS: ANION GAP 10 MEQ/L (8-16); BLOOD UREA NITROGEN 9 MG/DL (7-18); CALCIUM LEVEL 8.5 MG/DL (8.8-10.2); CARBON DIOXIDE LEVEL 23 MEQ/L (21-32); CHLORIDE LEVEL 91 MEQ/L (98-107); CREATININE FOR GFR 0.81 MG/DL (0.70-1.30); GLOMERULAR FILTRATION RATE > 60.0 (>35); GLUCOSE, FASTING 81 MG/DL (83-110); POTASSIUM SERUM 3.7 MEQ/L (3.5-5.1); SODIUM LEVEL 124 MEQ/L (136-145)
[2016-11-03 07:36] LABS: FREE T4 1.22 NG/DL (0.76-1.46)
[2016-11-03] MEDS ORDERED: NS 1,000 ML IV SCH (09:45)
[2016-11-03] MEDS: PANTOPRAZOLE 40MG INJ (PROTONIX) (C9113) IV SCH ×2 (09:58→20:08)
[2016-11-03] MEDS: APIXABAN 5 MG TAB (ELIQUIS) PO SCH ×2 (09:59→20:08)
[2016-11-03] MEDS: amLODIPine 5 MG TAB PO SCH (09:59)
[2016-11-03] MEDS: TIMOLOL MALEATE 0.5% OPHTH SOLN 5 ML OU SCH ×2 (10:00→20:08)
[2016-11-03] MEDS: ATORVASTATIN 20 MG TAB PO SCH (10:00)
[2016-11-03] MEDS: VALSARTAN 80 MG TAB (DIOVAN) PO SCH (10:00)
[2016-11-03] MEDS: CLOPIDOGREL 75 MG TAB PO SCH (10:00)
[2016-11-03 10:43] LABS: ANION GAP 13 MEQ/L (8-16); BLOOD UREA NITROGEN 9 MG/DL (7-18); CALCIUM LEVEL 8.2 MG/DL (8.8-10.2); CARBON DIOXIDE LEVEL 21 MEQ/L (21-32); CHLORIDE LEVEL 91 MEQ/L (98-107); CREATININE FOR GFR 0.75 MG/DL (0.70-1.30); GLOMERULAR FILTRATION RATE > 60.0 (>35); GLUCOSE, FASTING 95 MG/DL (83-110); MAGNESIUM LEVEL 1.8 MG/DL (1.8-2.4); POTASSIUM SERUM 3.5 MEQ/L (3.5-5.1); SODIUM LEVEL 125 MEQ/L (136-145)
[2016-11-03 11:15] LABS: URIC ACID 1.6 MG/DL (3.5-7.2)
[2016-11-03] MEDS ORDERED: MOM 30ML SUSPENSION UDC PO PRN (11:30)
[2016-11-03 14:00] VITALS: BP 133/71
[2016-11-03 14:24] LABS: ANION GAP 10 MEQ/L (8-16); BLOOD UREA NITROGEN 9 MG/DL (7-18); CALCIUM LEVEL 7.9 MG/DL (8.8-10.2); CARBON DIOXIDE LEVEL 23 MEQ/L (21-32); CHLORIDE LEVEL 91 MEQ/L (98-107); CREATININE FOR GFR 0.87 MG/DL (0.70-1.30); GLOMERULAR FILTRATION RATE > 60.0 (>35); GLUCOSE, FASTING 97 MG/DL (83-110); POTASSIUM SERUM 3.4 MEQ/L (3.5-5.1); SODIUM LEVEL 124 MEQ/L (136-145)
[2016-11-03] MEDS ORDERED: MAG SULF 1GM/100ML (MAG RUN) 1 GM in APPROPRIATE DILUENT 1 EA IV ONE (15:00)
--- NOTE | 2016-11-03 15:23 | IPN ---
DATE OF SERVICE: 11/03/2016 Patient seen and examined. No acute events overnight. Denies any chest pain, pressure or discomfort. Reports nausea but no vomiting. Denies any abdominal pain. No diarrhea, mild constipation. Denies any fevers or chills. Continues to report very weak. VITAL SIGNS: Temperature 96, pulse 67, respirations 16, blood pressure 146/79, pulse oximetry 97% on room air. LABORATORY: WBC 6.8, hemoglobin and hematocrit (H and H) 13.8 and 39, platelets 177. Chemistry: Sodium 124, potassium 3.7, chloride 91, bicarbonate 23, BUN 9, creatinine 0.8. PHYSICAL EXAMINATION: GENERAL: Patient alert, cooperative, in no acute distress. HEENT: Normocephalic, atraumatic. NECK: Supple. CARDIAC: Regular rate and rhythm. Normal S1, S2. PULMONARY: Bilateral clear to auscultation. ABDOMEN: Soft, nontender. Positive bowel sounds. Hypoactive. EXTREMITIES: No edema bilateral lower extremities. ASSESSMENT AND PLAN: This is an 86-year-old patient with underlying medical history of atrial fibrillation, hypertension, gastroesophageal reflux disease (GERD), coronary artery disease, dyslipidemia, sciatica, cardiac stents, admitted with acute diverticulitis and hyponatremia. PROBLEMS: 1. Acute diverticulitis. Patient is afebrile without leukocytosis. Zofran, Reglan. Patient on Zosyn. Was initially given fluids. Currently diet advanced. Continue to follow bowel movement. Bowel regimen was prescribed. 2. Hyponatremia. Possibly secondary to syndrome of inappropriate secretion of antidiuretic hormone. Urine studies have been ordered. Follow up uric acid. Nephrology, Dr. Richardson, has been consulted. Initially given intravenous (IV) fluids. Currently, patient on fluid restriction and salt tablets. Will continue to monitor basic metabolic panel. 3. Hypokalemia. Secondary to potassium. Monitor potassium and magnesium. Supplement as needed. 4. Atrial fibrillation. Continue Eliquis. Patient is rate controlled. 5. Coronary artery disease. Patient on Eliquis, Plavix, statin, and Diovan. Continue to monitor. 6. Hypertension. Patient on Norvasc and Diovan. Monitor blood pressure. Adjust as needed. 7. Dyslipidemia. Continue statin. 8. Gastroesophageal reflux disease (GERD). Continue proton pump inhibitor (PPI). 9. Deconditioning. Physical therapy. Possible [place] [facility], given patient lives alone with no social support. 10. Deep venous thrombosis (DVT) prophylaxis. Patient on Eliquis for atrial fibrillation. DISPOSITION: Pending clinical improvement, physical therapy, resolution of hyponatremia.
[2016-11-03] MEDS: SODIUM CHLORIDE 1 GM TAB PO SCH ×2 (15:29→20:08)
[2016-11-03] MEDS: MIRALAX *UNIT DOSE* 17GM PACKET PO SCH (15:29)
[2016-11-03] MEDS: POTASSIUM CHLORIDE 10 MEQ SR TABLET PO SCH ×2 (15:29→20:08)
--- NOTE | 2016-11-03 18:20 | EDDOCDS ---
Physician Documentation [facility] Name: Yasir Guevara Age: 86 yrs Sex: Male : 1930 Arrival Date: 11/01/2016 Time: 09:50 Bed I6 Private MD: Asad Gill Disposition: 11/01/16 15:36 Hospitalization ordered by Birdie Leo for Inpatient Admission. Preliminary diagnosis are Hypo-osmolality and hyponatremia, Nausea with vomiting, unspecified, Lower abdominal pain, unspecified - RLQ, Diverticulitis of large intestine without perforation or abscess without bleeding. - Bed requested for 4 [place]. - Status is Inpatient Admission. srm - Condition is Stable. - Problem is new. - Symptoms are unchanged. Historical: - Allergies: no known allergies; - Home Meds: 1. amlodipine 10 mg Oral tab 1 tab once daily 2. elequis 5mg twice a day 3. Plavix 75 mg Oral tab 1 tab once daily 4. Omeprazole Oral 2 times per day 5. Lipitor 20 mg Oral tab 1 tab once daily 6. Diovan 320 mg Oral tab 0.5 tab once daily - PMHx: Hypertension; A-fib; CAD; GERD; Hypercholesterolemia; Sciatica; cardiac stent; BPH; - PSHx: Cardiac stents; - Social history: Smoking status: Patient states was never smoker of tobacco. No barriers to communication noted, The patient speaks fluent Lithuanian, Speaks appropriately for age. - Family history: Not pertinent. - : The pt / caregiver states he / she is not on anticoagulants. Home medication list is obtained from the patient. - Exposure Risk Screening:: None identified. Vital Signs: 11/01 09:52 BP 157 / 82; Pulse 65; Resp 18; Temp 97.3(O); Pulse Ox 99% ; Weight 86.18 kg / 189.99 cmb lbs; Height 6 ft. 1 in. (185.42 cm); Pain 4/10; 12:29 BP 154 / 73; Pulse 53; Resp 20; Temp 96.0; Pulse Ox 97% ; Pain 5/10; jam1 15:22 BP 187 / 86; Pulse 60; Resp 20; Temp 95.6; Pulse Ox 97% ; Pain 6/10; jam1 16:45 BP 188 / 86; Pulse 65; Resp 20; Temp 96.9; Pulse Ox 97% ; Pain 6/10; jam1 09:52 Body Mass Index 25.07 (86.18 kg, 185.42 cm) cmb MDM: 10:24 IV Saline Lock ordered. ml 10:24 NS 0.9% 1000 ml IV at bolus once ordered. ml 10:24 Ondansetron 4 mg IVP once ordered. ml 10:25 Chest, 1 View Ordered. EDMS 10:25 CBC with Diff Ordered. EDMS 10:25 MED Profile Ordered. EDMS 10:25 Liver Profile Ordered. EDMS 10:25 Amylase Ordered. EDMS 10:25 Lipase Ordered. EDMS 10:25 UA Ordered. EDMS 10:25 Urine Culture Ordered. EDMS 10:29 ERYTHROCYTE SEDIMENTATION RATE Ordered. EDMS 10:29 C REACTIVE PROTEIN QUANTITATIV Ordered. EDMS 11:20 NS 0.9% 500 ml IV at bolus once ordered. dt4 11:20 CBC with Diff Reviewed. dt4 11:20 MED Profile Reviewed. dt4 11:20 Liver Profile Reviewed. dt4 11:20 Amylase Reviewed. dt4 11:20 Lipase Reviewed. dt4 11:20 ERYTHROCYTE SEDIMENTATION RATE Reviewed. dt4 11:20 C REACTIVE PROTEIN QUANTITATIV Reviewed. dt4 11:22 CT ABD & PELVIS: W/O FOL BY WIT+CT Ordered. EDMS 11:22 BED REQUEST+ADM ordered. EDMS 11:34 Financial registration complete. mm15 12:39 Ciprofloxacin 500 mg PO once ordered. dt4 12:39 metroNIDAZOLE 500 mg PO once ordered. dt4 12:39 Metoclopramide 10 mg IV at 40 mg/hr once over 15 mins ordered. dt4 12:40 BMP: REPEAT. THANK YOU. Ordered. EDMS 12:40 ED course: SPOKE WITH DR. LEO AT THIS TIME REGARDING POSSIBLE ADMISSION OF THIS PT. dt4 ADVISED TO REPEAT BMP TO CHECK NA LEVEL AND TRY CIPRO/FLAGYL PO. IF PT NOT ABLE TO TOLERATE PO MEDS OR NA LEVEL HAS WORSENED, DR. LEO WILL ADMIT TO HOSPITAL. . 12:56 [facility] Payment Agreement was scanned into [employer] and attached to record. mm15 14:19 ED course: PT HELD DOWN CIPRO AND FLAGYL IN ROOM, STATES NO NAUSEA AT THIS TIME. SPOKE dt4 WITH DR. LEO AGAIN AND ADVISED TO HAVE PT HAVE BMP REDRAWN TOMORROW AND HAVE IT SENT TO PCP FOR FOLLOW UP. WILL DISCHARGE THIS PT WITH CIPRO AND FLAGYL PRESCRIPTIONS. . 14:57 ED course: CALLED AND SPOKE WITH DR. LEO AGAIN AT 1435, DUE TO PT STARTING TO DRY dt4 HEAVE IN ROOM, JUST AFTER DISCHARGE PAPERS WERE PRINTED. DAUGHTER CAME OUT TO PROVIDER DESK TO INFORM PT STILL NOT FEELING WELL AND NAUSEA RETURNING. ADVISED TO MONITOR PT FOR ANOTHER 2 HOURS AND TO CALL HIM BACK IN 2 HOURS (AT 1635) TO REEVALUATE. . 15:27 ED course: DR. LEO IN ROOM WITH PT AT THIS TIME.. dt4 15:44 Admission / Observation Status ordered. EDMS 15:44 NPO DIET ordered. EDMS 15:45 OSMOLALITY, SERUM Ordered. EDMS 15:45 OSMOLALITY,URINE Ordered. EDMS 15:45 SODIUM,RANDOM URINE Ordered. EDMS 15:45 CREATININE,RANDOM URINE Ordered. EDMS 15:46 LACTIC ACID LEVEL, LACTATE Ordered. EDMS 15:46 BASIC METABOLIC PROFILE Ordered. EDMS 11/02 03:40 T-Sheet-- Draft Copy was scanned into [employer] and attached to record. hs2 10:29 Radiology Report was scanned into [employer] and attached to record. gb Administered Medications: 11/01 10:39 Drug: NS 0.9% 1000 ml [sodium chloride 0.9 % intravenous solution] Route: IV; Rate: mcp bolus; Site: left antecubital; 12:45 Follow up: IV Status: Completed infusion srm 10:39 Drug: Ondansetron 4 mg [ondansetron HCl 2 mg/mL intravenous solution (2 mL)] Route: mcp IVP; Site: left antecubital; 12:45 Drug: Metoclopramide 10 mg [metoclopramide 5 mg/mL injection solution] Route: IV; Rate: srm 40 mg/hr; Infused Over: 15 mins; Site: right antecubital; 13:31 Follow up: IV Status: Completed infusion ms18 13:32 Drug: Ciprofloxacin 500 mg [ciprofloxacin 500 mg tablet (1 tabs)] Route: PO; ms18 13:32 Drug: metroNIDAZOLE 500 mg [metronidazole 250 mg tablet (2 tabs)] Route: PO; ms18 13:53 Drug: NS 0.9% 500 ml [sodium chloride 0.9 % intravenous solution] Route: IV; Rate: ms18 bolus; Site: left antecubital; Signatures: Dispatcher [employer] EDMS Saud Sandhu MD MD ml Sleeman, Kacey RN RN [facility] Desiree Marie RN RN [facility] Stacy Berrios, Reg Reg gb Mikayla Reed mm15 Bushra Garg RN RN Amna Lopez, PA-C PA-C dt4 Marjorie Negro, Reg Reg hs2 Catina Dey RN [facility] Christal Newell RN ms18 The chart was reviewed and I authenticate all verbal orders and agree with the evaluation and treatment provided.Corrections: (The following items were deleted from the chart) 10:27 10:25 ERYTHROCYTE SEDIMENTATION RATE+LAB ordered. EDMS EDMS 10: 10:25 C REACTIVE PROTEIN QUANTITATIV+LAB ordered. EDMS EDMS Attachments: 12:56 [facility] Payment Agreement mm15 11/02 03:40 T-Sheet-- Draft Copy hs2 Chart Complete MTDD
--- NOTE | 2016-11-03 18:20 | EDDOCDS ---
Nurse's Notes [facility] Name: Yasir Guevara Age: 86 yrs Sex: Male : 1930 Arrival Date: 11/01/2016 Time: 09:50 Bed I6 Private MD: Asad Gill Diagnosis: Hypo-osmolality and hyponatremia;Nausea with vomiting, unspecified;Lower abdominal pain, unspecified-RLQ;Diverticulitis of large intestine without perforation or abscess without bleeding Presentation: 11/01 09:55 Presenting complaint: Patient states: "I think I'm dehydrated." Pt c/o n/v. Pt reports ead he was seen here last week for n/v, flank pain, and UTI. Adult Sepsis Screening: The patient does not have new or worsening altered mentation. Patient's respiratory rate is less than 22. Systolic blood pressure is greater than 100. Patient has a qSOFA score of 0- Negative Sepsis Screen. Suicide/Homicide risk assessment- the patient denies having any suicidal and/or homicidal ideations and does not present with any other emotional, behavioral or mental health complaints. Status: Patient is not a food services coordinator or dependent. Transition of care: patient was not received from another setting of care. 09:55 Acuity: ELIER Level 3 ead 09:55 Method Of Arrival: Walkin/Carried/Asstd ead Triage Assessment: 09:58 General: Appears in no apparent distress, well nourished, well groomed, Behavior is ead appropriate for age, cooperative. Pain: Location: anterior aspect of right lateral abdomen Pain currently is 7 out of 10 on a pain scale. Neurological: Level of Consciousness is awake, alert, obeys commands, Oriented to person, place, time, Moves all extremities. Gait is steady, Speech is normal, Facial symmetry appears normal. Respiratory: Airway is patent Respiratory effort is even, unlabored. GI: Reports nausea, vomiting, right flank pain. Derm: Skin is pink, warm & dry. Historical: - Allergies: no known allergies; - Home Meds: 1. amlodipine 10 mg Oral tab 1 tab once daily 2. elequis 5mg twice a day 3. Plavix 75 mg Oral tab 1 tab once daily 4. Omeprazole Oral 2 times per day 5. Lipitor 20 mg Oral tab 1 tab once daily 6. Diovan 320 mg Oral tab 0.5 tab once daily - PMHx: Hypertension; A-fib; CAD; GERD; Hypercholesterolemia; Sciatica; cardiac stent; BPH; - PSHx: Cardiac stents; - Social history: Smoking status: Patient states was never smoker of tobacco. No barriers to communication noted, The patient speaks fluent Serbian, Speaks appropriately for age. - Family history: Not pertinent. - : The pt / caregiver states he / she is not on anticoagulants. Home medication list is obtained from the patient. - Exposure Risk Screening:: None identified. Screenin:42 Screening information is obtained from the patient. Primary language is Serbian. Fall jam1 risk: No risks identified. Assistance ADL's: requires no assistance with activities of daily living. Abuse/DV Screen: The patient / caregiver reports he/she is: not in a situation that causes fear, pain or injury. Nutritional screening: No deficits noted. Exposure Risk Screening: None identified. Advance Directives: Currently, there is a health care proxy, daughter robin manrique. There is an active DNR order but there is no copy available at this time. There is a living will, but a copy is not available at this time. There is an active Power of Health Data Administrator, daughter of pt robin manrique. Advance directive information has been placed on a prior [facility] medical record, but the patient/ family does not know when. Further advance directive information is declined. home support is adequate. Assessment: 10:40 General: Appears uncomfortable, Behavior is appropriate for age, cooperative. srm Neurological: No deficits noted. EENT: No deficits noted. Respiratory: Airway is patent Respiratory effort is even, unlabored, Breath sounds are clear bilaterally. Reports pain right lower ribs/back pain. GI: Abdomen is non- distended Bowel sounds present X 4 quads. Abd is soft and non tender X 4 quads. GI: other having dry heaves. Derm: No deficits noted. 11:35 General: Appears in no apparent distress, comfortable, Behavior is appropriate for age, ms18 cooperative, Pt in no acute distress. Pt resting on stretcher, warm blankets given. Family at bedside. Will continue to monitor pt. Respiratory: Airway is patent Respiratory effort is even, unlabored. Derm: Skin is pink, warm & dry. 12:52 General: Appears D Doug AUSTIN spoke with dr whiting- hold NS 500 CC bolus at this time. srm 13:35 Reassessment: Patient appears in no apparent distress at this time. General: Appears in srm no apparent distress, Behavior is appropriate for age, cooperative. EENT: No deficits noted. Cardiovascular: No deficits noted. Respiratory: No deficits noted. 14:15 General: Appears pt tolerated pills and fluid. PA spoke with dr belle for d/c. srm 15:15 General: pt started with dry heaves. dr belle notified for admission. . srm 16:01 General: Appears resting on stretcher visitors at bedside. no further dry heaves or srm vomiting. . 16:48 General: Appears in no apparent distress, Behavior is appropriate for age, cooperative. srm Neurological: No deficits noted. EENT: No deficits noted. Cardiovascular: No deficits noted. Respiratory: Airway is patent Respiratory effort is even, unlabored, Breath sounds are clear bilaterally. GI: Abdomen is non- distended Bowel sounds present X 4 quads. Abd is soft and non tender X 4 quads. Reports NAUSEA BETTER BUT REMAINS. 17:17 Reassessment: Patient appears in no apparent distress at this time. [facility] Vital Signs: 09:52 BP 157 / 82; Pulse 65; Resp 18; Temp 97.3(O); Pulse Ox 99% ; Weight 86.18 kg; Height 6 cmb ft. 1 in. (185.42 cm); Pain 4/10; 12:29 BP 154 / 73; Pulse 53; Resp 20; Temp 96.0; Pulse Ox 97% ; Pain 5/10; jam1 15:22 BP 187 / 86; Pulse 60; Resp 20; Temp 95.6; Pulse Ox 97% ; Pain 6/10; jam1 16:45 BP 188 / 86; Pulse 65; Resp 20; Temp 96.9; Pulse Ox 97% ; Pain 6/10; jam1 09:52 Body Mass Index 25.07 (86.18 kg, 185.42 cm) [facility] Vitals: 09:52 Log In Time: November 01, 2016 at 09:50. [facility] ED Course: 09:52 Patient visited by Angy Armando. cmb 09:52 Asad Gill is Private Physician. cmb 09:52 Patient moved to Waiting cmb 09:54 Patient moved to Pre RCE cmb 09:56 Triage Initiated ead 10:01 Patient moved to Triage 2 kr3 10:06 Saud Sandhu MD is Attending Physician. ml 10:06 Patient visited by Saud Sandhu MD. ml 10:15 Patient moved to I6 / kr3 10:38 The patient / caregiver is instructed regarding the plan of care and ED course. srm Accompanied by Family Member, Patient has correct armband on for positive identification. Placed in gown. Bed in low position. Call light in reach. Side rails up X 1. 10:38 C REACTIVE PROTEIN QUANTITATIV Sent. srm 10:38 ERYTHROCYTE SEDIMENTATION RATE Sent. srm 10:38 Amylase Sent. srm 10:38 Lipase Sent. srm 10:38 Liver Profile Sent. srm 10:38 MED Profile Sent. srm 10:38 CBC with Diff Sent. srm 10:38 Inserted saline lock: 20 gauge in left antecubital area and blood collected. srm 10:39 Patient visited by Desiree Marie RN. srm 10:41 Patient visited by Desiree Marie RN. srm 10:47 Amna Camacho PA-C is PHCP. dt4 11:34 Patient visited by Christal Newell RN. ms18 11:49 Chest, 1 View Returned. EDMS 12:03 Urine Culture Sent. srm 12:03 UA Sent. srm 12:29 Patient visited by Amna Camacho PA-C. dt4 12:38 Birdie Whiting contact centre supervisor. nq 12:39 Patient visited by Desiree Marie RN. srm 12:43 BMP: REPEAT. THANK YOU. Sent. jam1 12:52 Patient visited by Desiree Marie RN. srm 12:56 [facility] Payment Agreement was scanned into [employer] and attached to record. mm15 13:21 CT ABD & PELVIS: W/O FOL BY WIT+CT Returned. EDMS 13:31 Patient visited by Christal Newell RN. ms18 13:41 Pillow given. jam1 13:50 Patient name changed from Yasir\\S\\\\S\\Hill\\S\\ to Yasir\\S\\ \\S\\Hill. EDMS 14:02 Patient visited by Christal Newell RN. ms18 14:06 Patient visited by Amna Camacho PA-C. dt4 14:21 Asad Gill is Referral Physician. dt4 14:23 Birdie Whiting contact centre supervisor. nq 15:07 Patient visited by Christal Newell RN. ms18 15:34 Birdie Whiting is Hospitalizing Provider. dt4 16:06 Patient visited by Desiree Marie, SHELLY. srm 16:48 No procedures done that require assistance. srm 16:53 report tubed and faxed to 4 [facility]- spoke with cathy. srm 16:54 Patient visited by Desiree Marie RN. srm 11/02 03:40 T-Sheet-- Draft Copy was scanned into [employer] and attached to record. hs2 10:29 Radiology Report was scanned into [employer] and attached to record. gb Administered Medications: 11/01 10:39 Drug: NS 0.9% 1000 ml [sodium chloride 0.9 % intravenous solution] Route: IV; Rate: mcp bolus; Site: left antecubital; 12:45 Follow up: IV Status: Completed infusion srm 10:39 Drug: Ondansetron 4 mg [ondansetron HCl 2 mg/mL intravenous solution (2 mL)] Route: mcp IVP; Site: left antecubital; 12:45 Drug: Metoclopramide 10 mg [metoclopramide 5 mg/mL injection solution] Route: IV; Rate: srm 40 mg/hr; Infused Over: 15 mins; Site: right antecubital; 13:31 Follow up: IV Status: Completed infusion ms18 13:32 Drug: Ciprofloxacin 500 mg [ciprofloxacin 500 mg tablet (1 tabs)] Route: PO; ms18 13:32 Drug: metroNIDAZOLE 500 mg [metronidazole 250 mg tablet (2 tabs)] Route: PO; ms18 13:53 Drug: NS 0.9% 500 ml [sodium chloride 0.9 % intravenous solution] Route: IV; Rate: ms18 bolus; Site: left antecubital; Intake: 16:48 IV: 1000.00ml (NS); Total: 1000.00ml. srm Output: 16:48 Urine: 625.00ml (Voided); Total: 625.00ml. srm Order Results: Lab Order: CBC with Diff; SPEC'M 11/01/16 10:36 Test: WHITE BLOOD COUNT; Value: 8.6; Range: 4.0-10.0; Units: K/mm3; Status: F Test: RED BLOOD COUNT; Value: 4.65; Range: 4.30-6.10; Units: M/mm3; Status: F Test: HEMOGLOBIN; Value: 14.3; Range: 14.0-18.0; Units: g/dl; Status: F Test: HEMATOCRIT; Value: 40.0; Range: 42.0-52.0; Abnormal: Below low normal; Units: %; Status: F Test: MEAN CORPUSCULAR VOLUME; Value: 86.1; Range: 80.0-96.0; Units: fl; Status: F Test: MEAN CORPUSCULAR HEMOGLOBIN; Value: 30.8; Range: 27.0-33.0; Units: pg; Status: F Test: MEAN CORPUSCULAR HGB CONC; Value: 35.8; Range: 32.0-36.5; Units: g/dl; Status: F Test: RED CELL DISTRIBUTION WIDTH; Value: 12.6; Range: 11.5-14.5; Units: %; Status: F Test: PLATELET COUNT, AUTOMATED; Value: 239; Range: 150-450; Units: k/mm3; Status: F Test: NEUTROPHILS %; Value: 72.5; Range: 36.0-66.0; Abnormal: Above high normal; Units: %; Status: F Test: LYMPH %; Value: 19.8; Range: 24.0-44.0; Abnormal: Below low normal; Units: %; Status: F Test: MONO %; Value: 4.9; Range: 0.0-5.0; Units: %; Status: F Test: EOS %; Value: 1.3; Range: 0.0-3.0; Units: %; Status: F Test: BASO %; Value: 0.3; Range: 0.0-1.0; Units: %; Status: F Test: LARGE UNSTAINED CELL %; Value: 1.2; Range: 0.0-4.0; Units: %; Status: F Test: NEUTROPHILS #; Value: 6.2; Range: 1.8-7.7; Units: K/mm3; Status: F Test: LYMPH #; Value: 1.7; Range: 1.5-4.5; Units: K/mm3; Status: F Test: MONO #; Value: 0.4; Range: 0.0-0.8; Units: K/mm3; Status: F Test: EOS #; Value: 0.1; Range: 0.0-0.50; Units: K/mm3; Status: F Test: BASO #; Value: 0.0; Range: 0.0-0.2; Units: K/mm3; Status: F Test: LARGE UNSTAINED CELL #; Value: 0.1; Range: 0.0-0.4; Units: K/mm3; Status: F Lab Order: MED Profile; SPEC'M 11/01/16 10:36 Test: GLUCOSE, FASTING; Value: 99; Range: 83-110; Units: MG/DL; Status: F Test: BLOOD UREA NITROGEN; Value: 15; Range: 7-18; Units: MG/DL; Status: F Test: CREATININE FOR GFR; Value: 0.94; Range: 0.70-1.30; Units: MG/DL; Status: F Test: GLOMERULAR FILTRATION RATE; Value: > 60.0; Range: >35; Status: F Test: SODIUM LEVEL; Value: 129; Range: 136-145; Abnormal: Below low normal; Units: MEQ/L; Status: F Test: POTASSIUM SERUM; Value: 4.3; Range: 3.5-5.1; Units: MEQ/L; Status: F Test: CHLORIDE LEVEL; Value: 95; Range: 98-107; Abnormal: Below low normal; Units: MEQ/L; Status: F Test: CARBON DIOXIDE LEVEL; Value: 24; Range: 21-32; Units: MEQ/L; Status: F Test: ANION GAP; Value: 10; Range: 8-16; Units: MEQ/L; Status: F Test: CALCIUM LEVEL; Value: 8.8; Range: 8.8-10.2; Units: MG/DL; Status: F Test Note: ; Units are mL/min/1.73 m2 Chronic Kidney Disease Staging per NKF: Stage I & II GFR >=60 Normal to Mildly Decreased Stage III GFR 30-59 Moderately Decreased Stage IV GFR 15-29 Severely Decreased Stage V GFR <15 Very Little GFR Left ESRD GFR <15 on STATION CHIEF Lab Order: Liver Profile; SPEC'M 11/01/16 10:36 Test: AST/SGOT; Value: 13; Range: 15-37; Abnormal: Below low normal; Units: U/L; Status: F Test: ALT/SGPT; Value: 18; Range: 12-78; Units: U/L; Status: F Test: ALKALINE PHOSPHATASE; Value: 69; Range: 45-117; Units: U/L; Status: F Test: BILIRUBIN,TOTAL; Value: 1.0; Range: 0.2-1.0; Units: MG/DL; Status: F Test: BILIRUBIN,DIRECT; Value: 0.2; Range: 0.0-0.2; Units: MG/DL; Status: F Test: TOTAL PROTEIN; Value: 6.3; Range: 6.4-8.2; Abnormal: Below low normal; Units: GM/DL; Status: F Test: ALBUMIN; Value: 3.3; Range: 3.2-5.2; Units: GM/DL; Status: F Test: ALBUMIN/GLOBULIN RATIO; Value: 1.10; Range: 1.00-1.93; Status: F Lab Order: Amylase; [facility] 11/01/16 10:36 Test: AMYLASE; Value: 30; Range: 25-115; Units: U/L; Status: F Lab Order: Lipase; [facility] 11/01/16 10:36 Test: LIPASE; Value: 159; Range: 73-393; Units: U/L; Status: F Lab Order: UA; [facility] 11/01/16 12:00 Test: APPEARANCE, URINE; Value: CLEAR; Range: CLEAR; Status: F Test: COLOR, URINE; Value: YELLOW; Range: YELLOW; Status: F Test: PH,URINE; Value: 5.0; Range: 5.0-9.0; Units: UNITS; Status: F Test: SPECIFIC GRAVITY URINE AUTO; Value: 1.029; Range: 1.002-1.035; Status: F Test: PROTEIN, URINE AUTO; Value: NEGATIVE; Range: NEGATIVE; Units: mg/dL; Status: F Test: GLUCOSE, URINE (UA) AUTO; Value: NEGATIVE; Range: NEGATIVE; Units: mg/dL; Status: F Test: KETONE, URINE AUTO; Value: NEGATIVE; Range: NEGATIVE; Units: mg/dL; Status: F Test: UROBILINOGEN, URINE AUTO; Value: 0.2; Range: 0.0-2.0; Units: mg/dL; Status: F Test: BILIRUBIN, URINE AUTO; Value: NEGATIVE; Range: NEGATIVE; Status: F Test: NITRITE, URINE AUTO; Value: NEGATIVE; Range: NEGATIVE; Status: F Test: LEUKOCYTE ESTERASE, URINE AUTO; Value: NEGATIVE; Range: NEGATIVE; Status: F Test: BLOOD, URINE BLOOD; Value: NEGATIVE; Range: NEGATIVE; Status: F Test: WBC, URINE AUTO; Value: 0; Range: 0-3; Units: /HPF; Status: F Test: RBC, URINE AUTO; Value: 1; Range: 0-3; Units: /HPF; Status: F Test: BACTERIA, URINE AUTO; Value: NEGATIVE; Range: NEGATIVE; Status: F Test: SQUAMOUS EPITHELIAL CELL UR AU; Value: 0; Range: 0-6; Units: /HPF; Status: F Test: MUCUS, URINE; Value: SMALL; Range: NEGATIVE; Status: F Test: HYALINE CAST, URINE AUTO; Value: 0; Range: 0-1; Units: /LPF; Status: F Lab Order: ERYTHROCYTE SEDIMENTATION RATE; SPEC' 11/01/16 10:36 Test: ERYTHROCYTE SEDIMENTATION RATE; Value: 14; Range: 0-30; Units: mm/hr; Status: F Lab Order: C REACTIVE PROTEIN QUANTITATIV; SPEC' 11/01/16 10:36 Test: C REACTIVE PROTEIN QUANTITATIV; Value: < 0.30; Range: 0.00-0.30; Units: MG/DL; Status: F Lab Order: BMP: REPEAT. THANK YOU.; SPEC' 11/01/16 12:47 Test: GLUCOSE, FASTING; Value: 80; Range: 83-110; Abnormal: Below low normal; Units: MG/DL; Status: F Test: BLOOD UREA NITROGEN; Value: 14; Range: 7-18; Units: MG/DL; Status: F Test: CREATININE FOR GFR; Value: 0.85; Range: 0.70-1.30; Units: MG/DL; Status: F Test: GLOMERULAR FILTRATION RATE; Value: > 60.0; Range: >35; Status: F Test: SODIUM LEVEL; Value: 129; Range: 136-145; Abnormal: Below low normal; Units: MEQ/L; Status: F Test: POTASSIUM SERUM; Value: 4.1; Range: 3.5-5.1; Units: MEQ/L; Status: F Test: CHLORIDE LEVEL; Value: 95; Range: 98-107; Abnormal: Below low normal; Units: MEQ/L; Status: F Test: CARBON DIOXIDE LEVEL; Value: 24; Range: 21-32; Units: MEQ/L; Status: F Test: ANION GAP; Value: 10; Range: 8-16; Units: MEQ/L; Status: F Test: CALCIUM LEVEL; Value: 8.3; Range: 8.8-10.2; Abnormal: Below low normal; Units: MG/DL; Status: F Test Note: ; Units are mL/min/1.73 m2 Chronic Kidney Disease Staging per NKF: Stage I & II GFR >=60 Normal to Mildly Decreased Stage III GFR 30-59 Moderately Decreased Stage IV GFR 15-29 Severely Decreased Stage V GFR <15 Very Little GFR Left ESRD GFR <15 on STATION CHIEF Radiology Order: Chest, 1 View Test: Chest, 1 View REASON FOR EXAMINATION: abdl pain; PORTABLE CHEST X-RAY: Sitting AP view.; ; HISTORY: Abdominal pain.; ; FINDINGS: The lungs are symmetrically aerated and free of infiltrate. There is; no evidence of free subdiaphragmatic air. Heart size is normal. The aorta is; calcific and slightly tortuous. Pulmonary vasculature is not increased. No; significant change from June 24, 2016 prior study.; ; IMPRESSION: No active disease.; ; ; Signed by; Taj Carroll MD 11/01/2016 01:18 P; Radiology Order: CT ABD & PELVIS: W/O FOL BY WIT+CT Test: CT ABD & PELVIS: W/O FOL BY WIT+CT REASON FOR EXAMINATION: RIGHT SIDED ABD PAIN, PYELO VS STONE; CT STUDY OF THE ABDOMEN AND PELVIS WITHOUT AND WITH IV CONTRAST: Without oral; contrast.; ; HISTORY: Right-sided abdominal pain, pyelonephritis verses calculus.; ; Comparison CT study is from October 27, 2016. That prior study was interpreted; as showing no acute abdominal or pelvic abnormality.; ; CT contrast dose: 900 mL of Isovue 370 is administered intravenously.; ; CT FINDINGS: Digital preliminary strategic planning director radiograph shows an unremarkable bowel; gas pattern. The lung bases show mild linear bibasilar fibrosis but are; otherwise clear. No pleural effusion is seen.; ; There are four to five small well-circumscribed low density nonenhancing liver; lesions compatible with cysts. The largest of these measures 1.4 cm in greatest; diameter. These are unchanged when compared with September 27, 2013 prior study.; No splenic lesion is seen. Gallbladder is unremarkable. No pancreatic; abnormality is observed. No adrenal lesion is seen on either side.; Atherosclerotic calcification is seen in a normal caliber aorta. 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 This is unchanged from the 2013 study.; ; There is a cyst at the interpolar level of the right kidney. This measures 2.0; cm in diameter. In 2013 it measured 1.4 cm in diameter. No other renal cyst is; seen. No intrarenal calculus is observed on either side. No hydronephrosis is; seen. No ureteral calculus is seen. The kidneys enhance symmetrically post; contrast. No retroperitoneal mass or adenopathy is observed.; ; There is an area of pericolonic fat streaking adjacent to the sigmoid colon.; This may reflect acute diverticulitis. No abscess or free air is seen. No; abnormality is seen in the appendix. Small bowel loops are unremarkable. There; are dystrophic calcifications in the prostate. Urinary bladder is unremarkable.; No abdominal wall defect is seen. No bony destructive lesion is appreciated.; ; IMPRESSION:; ; 1. No evidence of urinary tract calculus, hydronephrosis, or pyelonephritis.; ; 2. There is a 2.0 cm cyst in the right kidney.; ; 3. There are several small stable hepatic cysts.; ; 4. Left colonic diverticulosis with mild pericolonic fat streaking suggestive of; acute diverticulitis. No abscess or free air.; ; ; Signed by; Taj Carroll MD 11/01/2016 01:19 P; Outcome: 14:23 Discharge ordered by Provider. dt4 15:36 Decision to Hospitalize by Provider. dt4 17:17 Discharge Assessment: Patient awake, alert and oriented x 3. No cognitive and/or srm functional deficits noted. Patient verbalized understanding of disposition instructions. patient administered narcotics - no. The following High Risk Discharge criteria are identified: None. Admitted to Med/Surg accompanied by [facility], via stretcher, with chart. Condition: good Condition: stable. CT Study completed. Property sent home with patient. 17:19 Patient left the ED. srm Signatures: Dispatcher [employer] EDMS Sadu Sandhu MD MD ml Michelson, Staci, RN RN Catina Ibrahim, RN RN Bobbi Mccall, RING BARKER OPERATOR RING BARKER OPERATOR jam1 Stacy Berrios, Reg Reg gb Alma DevriesRN RN kr3 Angy Armando cmb Birdie Whiting Marlynn mm15 Bushra Garg,RN RN Amna Lopez, PA-C PA-C dt4 Christal Newell,SHELLY RN ms18 Marjorie Negro, Reg Reg hs2 Chart Complete MTDD
--- NOTE | 2016-11-03 18:20 | EDDOCDS ---
Physician Documentation [facility] Name: Yasir Guevara Age: 86 yrs Sex: Male : 1930 Arrival Date: 11/01/2016 Time: 09:50 Bed I6 Private MD: Asad Gill Disposition: 11/01/16 15:36 Hospitalization ordered by Birdie Leo for Inpatient Admission. Preliminary diagnosis are Hypo-osmolality and hyponatremia, Nausea with vomiting, unspecified, Lower abdominal pain, unspecified - RLQ, Diverticulitis of large intestine without perforation or abscess without bleeding. - Bed requested for 4 West. - Status is Inpatient Admission. srm - Condition is Stable. - Problem is new. - Symptoms are unchanged. Historical: - Allergies: no known allergies; - Home Meds: 1. amlodipine 10 mg Oral tab 1 tab once daily 2. elequis 5mg twice a day 3. Plavix 75 mg Oral tab 1 tab once daily 4. Omeprazole Oral 2 times per day 5. Lipitor 20 mg Oral tab 1 tab once daily 6. Diovan 320 mg Oral tab 0.5 tab once daily - PMHx: Hypertension; A-fib; CAD; GERD; Hypercholesterolemia; Sciatica; cardiac stent; BPH; - PSHx: Cardiac stents; - Social history: Smoking status: Patient states was never smoker of tobacco. No barriers to communication noted, The patient speaks fluent Norwegian, Speaks appropriately for age. - Family history: Not pertinent. - : The pt / caregiver states he / she is not on anticoagulants. Home medication list is obtained from the patient. - Exposure Risk Screening:: None identified. Vital Signs: 11/01 09:52 BP 157 / 82; Pulse 65; Resp 18; Temp 97.3(O); Pulse Ox 99% ; Weight 86.18 kg / 189.99 cmb lbs; Height 6 ft. 1 in. (185.42 cm); Pain 4/10; 12:29 BP 154 / 73; Pulse 53; Resp 20; Temp 96.0; Pulse Ox 97% ; Pain 5/10; jam1 15:22 BP 187 / 86; Pulse 60; Resp 20; Temp 95.6; Pulse Ox 97% ; Pain 6/10; jam1 16:45 BP 188 / 86; Pulse 65; Resp 20; Temp 96.9; Pulse Ox 97% ; Pain 6/10; jam1 09:52 Body Mass Index 25.07 (86.18 kg, 185.42 cm) cmb MDM: 10:24 IV Saline Lock ordered. ml 10:24 NS 0.9% 1000 ml IV at bolus once ordered. ml 10:24 Ondansetron 4 mg IVP once ordered. ml 10:25 Chest, 1 View Ordered. EDMS 10:25 CBC with Diff Ordered. EDMS 10:25 MED Profile Ordered. EDMS 10:25 Liver Profile Ordered. EDMS 10:25 Amylase Ordered. EDMS 10:25 Lipase Ordered. EDMS 10:25 UA Ordered. EDMS 10:25 Urine Culture Ordered. EDMS 10:29 ERYTHROCYTE SEDIMENTATION RATE Ordered. EDMS 10:29 C REACTIVE PROTEIN QUANTITATIV Ordered. EDMS 11:20 NS 0.9% 500 ml IV at bolus once ordered. dt4 11:20 CBC with Diff Reviewed. dt4 11:20 MED Profile Reviewed. dt4 11:20 Liver Profile Reviewed. dt4 11:20 Amylase Reviewed. dt4 11:20 Lipase Reviewed. dt4 11:20 ERYTHROCYTE SEDIMENTATION RATE Reviewed. dt4 11:20 C REACTIVE PROTEIN QUANTITATIV Reviewed. dt4 11:22 CT ABD & PELVIS: W/O FOL BY WIT+CT Ordered. EDMS 11:22 BED REQUEST+ADM ordered. EDMS 11:34 Financial registration complete. mm15 12:39 Ciprofloxacin 500 mg PO once ordered. dt4 12:39 metroNIDAZOLE 500 mg PO once ordered. dt4 12:39 Metoclopramide 10 mg IV at 40 mg/hr once over 15 mins ordered. dt4 12:40 BMP: REPEAT. THANK YOU. Ordered. EDMS 12:40 ED course: SPOKE WITH DR. LEO AT THIS TIME REGARDING POSSIBLE ADMISSION OF THIS PT. dt4 ADVISED TO REPEAT BMP TO CHECK NA LEVEL AND TRY CIPRO/FLAGYL PO. IF PT NOT ABLE TO TOLERATE PO MEDS OR NA LEVEL HAS WORSENED, DR. LEO WILL ADMIT TO HOSPITAL. . 12:56 [facility] Payment Agreement was scanned into [employer] and attached to record. mm15 14:19 ED course: PT HELD DOWN CIPRO AND FLAGYL IN ROOM, STATES NO NAUSEA AT THIS TIME. SPOKE dt4 WITH DR. LEO AGAIN AND ADVISED TO HAVE PT HAVE BMP REDRAWN TOMORROW AND HAVE IT SENT TO PCP FOR FOLLOW UP. WILL DISCHARGE THIS PT WITH CIPRO AND FLAGYL PRESCRIPTIONS. . 14:57 ED course: CALLED AND SPOKE WITH DR. LEO AGAIN AT 1435, DUE TO PT STARTING TO DRY dt4 HEAVE IN ROOM, JUST AFTER DISCHARGE PAPERS WERE PRINTED. DAUGHTER CAME OUT TO PROVIDER DESK TO INFORM PT STILL NOT FEELING WELL AND NAUSEA RETURNING. ADVISED TO MONITOR PT FOR ANOTHER 2 HOURS AND TO CALL HIM BACK IN 2 HOURS (AT 1635) TO REEVALUATE. . 15:27 ED course: DR. LEO IN ROOM WITH PT AT THIS TIME.. dt4 15:44 Admission / Observation Status ordered. EDMS 15:44 NPO DIET ordered. EDMS 15:45 OSMOLALITY, SERUM Ordered. EDMS 15:45 OSMOLALITY,URINE Ordered. EDMS 15:45 SODIUM,RANDOM URINE Ordered. EDMS 15:45 CREATININE,RANDOM URINE Ordered. EDMS 15:46 LACTIC ACID LEVEL, LACTATE Ordered. EDMS 15:46 BASIC METABOLIC PROFILE Ordered. EDMS 11/02 03:40 T-Sheet-- Draft Copy was scanned into [employer] and attached to record. hs2 10:29 Radiology Report was scanned into [employer] and attached to record. gb Administered Medications: 11/01 10:39 Drug: NS 0.9% 1000 ml [sodium chloride 0.9 % intravenous solution] Route: IV; Rate: mcp bolus; Site: left antecubital; 12:45 Follow up: IV Status: Completed infusion srm 10:39 Drug: Ondansetron 4 mg [ondansetron HCl 2 mg/mL intravenous solution (2 mL)] Route: mcp IVP; Site: left antecubital; 12:45 Drug: Metoclopramide 10 mg [metoclopramide 5 mg/mL injection solution] Route: IV; Rate: srm 40 mg/hr; Infused Over: 15 mins; Site: right antecubital; 13:31 Follow up: IV Status: Completed infusion ms18 13:32 Drug: Ciprofloxacin 500 mg [ciprofloxacin 500 mg tablet (1 tabs)] Route: PO; ms18 13:32 Drug: metroNIDAZOLE 500 mg [metronidazole 250 mg tablet (2 tabs)] Route: PO; ms18 13:53 Drug: NS 0.9% 500 ml [sodium chloride 0.9 % intravenous solution] Route: IV; Rate: ms18 bolus; Site: left antecubital; Signatures: Dispatcher [employer] EDMS Saud Sandhu MD MD ml Sleeman, Kacey RN RN [facility] Desiree Marie RN RN [facility] Stacy Berrios, Reg Reg gb Mikayla Reed mm15 Bushra Garg RN RN Amna Lopez, PA-C PA-C dt4 Marjorie Negro, Reg Reg hs2 Catina Dey RN [facility] Christal Newell RN ms18 The chart was reviewed and I authenticate all verbal orders and agree with the evaluation and treatment provided.Corrections: (The following items were deleted from the chart) 10:27 10:25 ERYTHROCYTE SEDIMENTATION RATE+LAB ordered. EDMS EDMS 10: 10:25 C REACTIVE PROTEIN QUANTITATIV+LAB ordered. EDMS EDMS Attachments: 12:56 [facility] Payment Agreement mm15 11/02 03:40 T-Sheet-- Draft Copy hs2 Chart Complete MTDD
--- NOTE | 2016-11-03 18:23 | CR.PDOC ---
[facility] Consultation Consultation DATE OF ADMISSION: 11/01/2016 DATE OF CONSULTATION: 11/03/2016 REQUESTING PROVIDER: Dr. Radha England REASON FOR CONSULTATION/CHIEF COMPLAINT: Hyponatremia. HISTORY OF THE PRESENT ILLNESS: Mr. Guevara is an 86-year-old man with past medical history significant for atrial fibrillation, hypertension, GERD, coronary artery disease status post stenting, dyslipidemia, and sciatica who presented to the emergency department with complaints of right lower quadrant pain with associated nausea, vomiting. The symptoms had been going on for 4 days prior to his presentation. His oral intake had been poor as well. He had abdominal CT performed which revealed mild pericolonic fat streaking suggestive of acute diverticulitis. He was admitted into the hospital, made nothing by mouth and initiated on IV antibiotics as well as supportive care. His initial laboratory assessment revealed hyponatremia, with a sodium of 129, and normal saline was initiated. Repeat labs show that his sodium levels have not improved , thus a nephrology consult was requested secondary to his worsening hyponatremia. He currently reports that he feels a little better. He states that his GI symptoms are improved. His biggest concern right now is his restless legs. He has chronic history of restless legs, but states that they are worse today. He also reports a slight headache. No abdominal pain, nausea or vomiting today. He reports that he has not yet had a bowel movement. No fever, chills, dizziness, chest pain, shortness of breath. He was getting ready to eat breakfast when seen in evaluation. PAST MEDICAL HISTORY: 1. Atrial fibrillation. 2. Hypertension. 3. Gastroesophageal reflux disease. 4. Coronary artery disease. 5. Dyslipidemia. 6. Sciatica. PAST SURGICAL HISTORY: 1. Cardiac stenting. HOME MEDICATIONS: Please see below. ALLERGIES: No known drug allergies. SOCIAL HISTORY: He is a former smoker. Rare alcohol consumption. No illicit drug use. He lives with his daughter. REVIEW OF SYSTEMS: CONSTITUTIONAL: No fever, chills. No significant weight changes. HEENT: Positive for mild headache. No lightheadedness or dizziness. No acute changes to vision or hearing. CARDIOVASCULAR: No chest pain, palpitations or shortness of breath with exertion. RESPIRATORY: No shortness of breath or cough. No hemoptysis. GASTROINTESTINAL: Positive for nausea and vomiting which have improved. Positive for abdominal pain which is also improved. No diarrhea, hematochezia or melena. GENITOURINARY: No change in urinary frequency. No dysuria or hematuria. MUSCULOSKELETAL: No unusual muscle or joint pains. INTEGUMENT: No unusual rashes or skin lesions. NEUROLOGICAL: No syncope. Positive for restless legs. ENDOCRINE: No history of diabetes or thyroid disorder. HEMATOLOGIC: No excessive bleeding or bruising. PHYSICAL EXAMINATION: Vital Signs Date Time Temp Pulse Resp B/P Pulse Ox O2 Delivery O2 Flow Rate FiO2 11/03/16 14:00 96.6 57 18 133/71 97 Room Air I&O- Last 24 Hours up to 6 AM 11/03/16 05:59 Intake Total 770 ml Output Total 1400 ml Balance -630 ml GENERAL: Alert and oriented. In no acute distress. HEENT: Normocephalic, atraumatic. Extraocular muscles are intact. Left pupil is disfigured. Mucosa appears moist. NECK: Supple. No cervical lymphadenopathy. Trachea is midline. No jugular venous distention appreciated. HEART: Normal S1, S2, regular rate and rhythm. LUNG: Clear to auscultation bilaterally. ABDOMEN: Soft. Nontender, nondistended. Bowel sounds are present. No rebound, guarding or rigidity. EXTREMITIES: No clubbing, cyanosis, or edema. Positive pedal pulses bilaterally. SKIN: Warm and dry. Good skin turgor. No rashes noted. NEUROLOGIC: No focal deficits. Cranial nerves II through XII are grossly intact. Motor and sensation intact. LABORATORY STUDIES: 11/03/16 06:11 11/03/16 09:53 MICROBIOLOGY: Urine culture is positive for Escherichia coli. IMAGING: CT of the abdomen and pelvis revealed a 2.0 cm cyst on the right kidney, several small stable hepatic cysts, left colonic diverticulosis with mild pericolonic fat streaking suggestive of acute diverticulitis. No abscess or free air. Chest x-ray did not reveal any acute disease. ASSESSMENT AND PLAN: Mr. Guevara is an 86-year-old man with past medical history significant for atrial fibrillation, hypertension, GERD, coronary artery disease status post stenting, dyslipidemia, and sciatica who was admitted into the hospital with acute diverticulitis also found to have hyponatremia. 1. Hyponatremia. His GI symptoms could have triggered an inappropriate secretion of ADH in addition to him being dehydrated from vomiting and diarrhea. He was previously on normal saline which could have altered his urine sodium. Another urine sodium and creatinine will be repeated as he is not currently on any fluids. 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 If urine sodium continues to be elevated, he may need a head CT to evaluate for any SPORTS MEDIA causes. Initially, the thought was to give him more fluids however his repeat basic metabolic profile shows a decrease in sodium, therefore he will be started on sodium chloride tablets. Uric acid level was found to be low. He has another basic metabolic profile for 1899. We will see what his sodium does on subsequent labs. 2. Acute diverticulitis. He remains on IV Zosyn. It appears that his diet has been advanced and his symptoms are improved. Being managed by primary team. 3. Positive urine culture for Escherichia coli, which is sensitive to Zosyn. 4. Hypertension. Pressure stable. The patient is currently on Diovan and amlodipine. 5. Atrial fibrillation. He is currently on Eliquis. Rate is controlled. 6. Dyslipidemia. The patient is on Lipitor. 7. Coronary artery disease. The patient is on Plavix and a statin. He he does not appear to be on a beta cody. Thank you for the consultation and allowing us to participate in the care of Mr. Guevara. We will continue to follow along with you. Allergies Coded Allergies: No Known Drug Allergy (Verified Allergy, Unknown, 11/26/15) Home Medications Scheduled Amlodipine Besylate (Amlodipine Besylate) 5 Mg Tab 5 MG PO DAILY (Reported) Apixaban Base (Eliquis) 5 Mg Tab 5 MG PO BID (Reported) Atorvastatin Calcium (Atorvastatin Calcium) 20 Mg Tab 20 MG PO DAILY (Reported ) Clopidogrel Bisulfate (Plavix) 75 Mg Tab 75 MG PO DAILY (Reported) Pantoprazole Sodium (Pantoprazole Sodium) 40 Mg Tab 40 MG PO BID (Reported) Timolol Maleate (Timolol Maleate) 0.5 % Alix 1 DROP OU BID (Reported) Valsartan (Valsartan) 160 Mg Tab 160 MG PO DAILY (Reported) Scheduled PRN Acetaminophen/Codeine (Tylenol/Codeine #3) Tab 1 TAB PO Q6H PRN PRN PAIN ( Reported) GME ATTESTATION GME ATTESTATION My preceptor for this patient encounter was physically present in the building during the encounter and was fully available. As needed, all aspects of the patient interview, examination, medical decision making process, and medical care plan development were reviewed and approved by the preceptor. Preceptor is aware and concurs with the plan as stated in the body of this note and will attest to such by his/her cosignature. GLORIA SHAFFER DO Nov 03, 2016 18:23
[2016-11-03 19:57] LABS: ANION GAP 10 MEQ/L (8-16); BLOOD UREA NITROGEN 9 MG/DL (7-18); CALCIUM LEVEL 7.9 MG/DL (8.8-10.2); CARBON DIOXIDE LEVEL 24 MEQ/L (21-32); CHLORIDE LEVEL 90 MEQ/L (98-107); CREATININE FOR GFR 0.81 MG/DL (0.70-1.30); GLOMERULAR FILTRATION RATE > 60.0 (>35); GLUCOSE, FASTING 115 MG/DL (83-110); POTASSIUM SERUM 3.5 MEQ/L (3.5-5.1); SODIUM LEVEL 124 MEQ/L (136-145)
[2016-11-03] MEDS: SENOKOT S TAB PO SCH (20:08)
[2016-11-03 21:10] VITALS: BP 162/70
[2016-11-04] MEDS: PIPERACILLIN/TAZOBACTAM SOD 3.375 GM in D5W MINI-BAG PLUS 50 ML IV SCH ×3 (02:21→17:47)
[2016-11-04] MEDS: METOCLOPRAMIDE INJ 10MG/2ML VIAL (J2765) IV SCH ×3 (02:22→17:47)
[2016-11-04] MEDS: rOPINIRole 0.25 MG TAB(REQUIP) PO PRN ×2 (03:52→14:06)
[2016-11-04 06:20] LABS: RED CELL DISTRIBUTION WIDTH 13.4 % (11.5-14.5)
[2016-11-04 06:34] LABS: ANION GAP 12 MEQ/L (8-16); BLOOD UREA NITROGEN 9 MG/DL (7-18); CALCIUM LEVEL 8.2 MG/DL (8.8-10.2); CARBON DIOXIDE LEVEL 23 MEQ/L (21-32); CHLORIDE LEVEL 92 MEQ/L (98-107); CREATININE FOR GFR 0.83 MG/DL (0.70-1.30); GLOMERULAR FILTRATION RATE > 60.0 (>35); GLUCOSE, FASTING 79 MG/DL (83-110); POTASSIUM SERUM 3.8 MEQ/L (3.5-5.1); SODIUM LEVEL 127 MEQ/L (136-145)
[2016-11-04 06:38] VITALS: BP 164/85
[2016-11-04 07:55] LABS: MEAN CORPUSCULAR HEMOGLOBIN 30.7 pg (27.0-33.0); MEAN CORPUSCULAR HGB CONC 36.2 g/dl (32.0-36.5); MEAN CORPUSCULAR VOLUME 84.8 fl (80.0-96.0); WHITE BLOOD COUNT 5.1 K/mm3 (4.0-10.0)
[2016-11-04] MEDS: PANTOPRAZOLE 40MG INJ (PROTONIX) (C9113) IV SCH ×2 (09:53→21:03)
[2016-11-04] MEDS: MIRALAX *UNIT DOSE* 17GM PACKET PO SCH (09:53)
[2016-11-04] MEDS: SENOKOT S TAB PO SCH ×2 (09:54→21:00)
[2016-11-04] MEDS: amLODIPine 5 MG TAB PO SCH (09:54)
[2016-11-04] MEDS: VALSARTAN 80 MG TAB (DIOVAN) PO SCH (09:55)
[2016-11-04] MEDS: SODIUM CHLORIDE 1 GM TAB PO SCH ×3 (09:55→21:03)
[2016-11-04] MEDS: ATORVASTATIN 20 MG TAB PO SCH (09:56)
[2016-11-04] MEDS: APIXABAN 5 MG TAB (ELIQUIS) PO SCH ×2 (09:56→21:03)
[2016-11-04] MEDS: TIMOLOL MALEATE 0.5% OPHTH SOLN 5 ML OU SCH ×2 (09:56→21:03)
[2016-11-04] MEDS: CLOPIDOGREL 75 MG TAB PO SCH (09:56)
[2016-11-04] MEDS: POTASSIUM CHLORIDE 10 MEQ SR TABLET PO SCH ×3 (09:56→21:03)
--- NOTE | 2016-11-04 11:18 | IPNPDOC ---
Date/Time Seen The patient was seen on 11/04/16 at 11:03. Progress Note DATE OF ENCOUNTER: 11/04/2016 SUBJECTIVE: Mr. Guevara was seen this morning at bedside. He reports that he is having some nausea and had dry heaves earlier. He states that his appetite is poor. No emesis, abdominal pain or diarrhea. He also reports hand and knee pain , which is chronic, but exacerbated by laying on our hospital bed. He continues to have restless legs. Denies any dizziness, chest pain, palpitations or shortness of breath. No fevers or chills. OBJECTIVE: Vital Signs Date Time Temp Pulse Resp B/P Pulse Ox O2 Delivery O2 Flow Rate FiO2 11/04/16 09:54 67 122/83 11/04/16 06:38 96.0 16 98 Room Air I&O- Last 24 Hours up to 6 AM 11/04/16 05:59 Intake Total 1670 ml Output Total 1150 ml Balance 520 ml GENERAL: Alert and oriented. In no acute distress. HEENT: Normocephalic, atraumatic. Extraocular muscles are intact. Mucosa appears moist. NECK: Supple. No cervical lymphadenopathy. No jugular venous distention appreciated. HEART: Normal S1, S2, regular rate and rhythm. LUNG: Clear to auscultation bilaterally. ABDOMEN: Soft. Nontender, nondistended. Bowel sounds are present. No rebound, guarding or rigidity. EXTREMITIES: No clubbing, cyanosis, or edema. Positive pedal pulses bilaterally. SKIN: Warm and dry. Good skin turgor. No rashes noted. NEUROLOGIC: No focal deficits. Motor and sensation intact. LABORATORY DATA: 11/04/16 05:43 Red Blood Count 4.40, Mean Corpuscular Volume 84.8, Mean Corpuscular Hemoglobin 30.7, Mean Corpuscular Hemoglobin Concent 36.2, Red Cell Distribution Width 13.4 , Anion Gap 12, Calcium Level 8.2L, Glomerular Filtration Rate > 60.0 MICROBIOLOGY: Urine culture collected on 11/01 is positive for Escherichia coli. IMAGING: CT of the abdomen and pelvis done on 11/01 revealed a 2.0 cm cyst on the right kidney, several small stable hepatic cysts, left colonic diverticulosis with mild pericolonic fat streaking suggestive of acute diverticulitis. No abscess or free air. Chest x-ray done on 11/01 did not reveal any acute disease. ASSESSMENT AND PLAN: Mr. Guevara is an 86-year-old man with past medical history significant for atrial fibrillation, hypertension, GERD, coronary artery disease status post stenting, dyslipidemia, and sciatica who was admitted into the hospital with acute diverticulitis also found to have hyponatremia. 1. Hyponatremia. His GI symptoms could have triggered an inappropriate secretion of ADH. His uric acid was low and repeat urine sodium was also high. He is currently on sodium chloride 1 gram three times a day and sodium level has improved. Continue with 1500ml fluid restriction. Cerebral salt wasting is a possibility, however not very likely. A CT of the head will be done to rule out any FLOUR MIXER HELPER causes. His mentation also appeared to be sluggish, unclear if this is far from his baseline. Sodium is not to be corrected more than 6-8 mEq in 24 hours. 2. Acute diverticulitis. He remains on IV Zosyn. It appears that his appetite is poor and his GI symptoms have not yet resolved. Being managed by primary team. 3. Positive urine culture for Escherichia coli, which is sensitive to Zosyn. 4. Hypertension. Blood pressure stable. He is on Diovan and amlodipine. 5. Restless legs. Patient in on Requip which has been increased to q6h. GME ATTESTATION GME ATTESTATION My preceptor for this patient encounter was physically present in the building during the encounter and was fully available. As needed, all aspects of the patient interview, examination, medical decision making process, and medical care plan development were reviewed and approved by the preceptor. Preceptor is aware and concurs with the plan as stated in the body of this note and will attest to such by his/her cosignature. GLORIA SHAFFER DO Nov 04, 2016 11:17
--- NOTE | 2016-11-04 11:36 | REP ---
CT STUDY OF THE BRAIN WITHOUT CONTRAST: HISTORY: Hyponatremia. Altered mentation. Comparison head CT study September 09, 2004. 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 Bone window settings demonstrate an intact bony calvarium. Visualized paranasal sinuses are clear. No intraorbital abnormality is seen. There is vascular calcification in the distal carotid arteries bilaterally. There is mild diffuse cerebral atrophy and concordant ventricular enlargement. This is slightly more pronounced than on the 2003 prior study. There are small vessel atherosclerotic changes in the periventricular white matter. These are more extensive as well. There is no evidence of infarct. No intracranial hemorrhage is seen. No mass, extra-axial fluid collection or midline shift is seen. IMPRESSION: Diffuse atrophy and vascular calcification. Small vessel changes. No acute intracranial abnormality. Signed by Taj Carroll MD 11/04/2016 02:00 P
--- NOTE | 2016-11-04 13:58 | IPNPDOC ---
Assessment/Plan Date Seen The patient was seen on 11/04/16. Plan / VTE VTE Prophylaxis Ordered?: Yes Plan Plan Text 1. Acute diverticulitis. Patient remains afebrile and without leukocytosis this morning Denies any abdominal pain at this time Continue Zofran, Reglan also added Continue IV Zosyn for now Diet advanced to mechanical soft Continue to monitor the patient's progress 2. Hyponatremia. Possibly secondary to SIADH Urine studies noted On Salt Tablets Serum Na improved from 124 to 127 today Nephro on board We will continue to monitor 3. Atrial fibrillation. Rate controlled, continue on Eliquis 4. Hypertension Stable, continue on Diovan and amlodipine. 5. Gastroesophageal reflux disease Continue PPI 6. Dyslipidemia. Continue statin. 7. Coronary artery disease. Continue on Plavix, statin. 8. Deep vein thrombosis (DVT) prophylaxis. Already on Eliquis. Disposition: Pending clinical improvement, physical therapy. Subjective Review of Systems CC/HPI The patient is a 86-year-old male admitted with a reason for visit of Diverticulitis. General: Denies: Chills, Night Sweats Constitutional: Denies: Chills, Fever Eyes: Denies: Pain, Vision change ENT: Denies: Ear Pain, Head Aches Skin: Denies: Lesions, Rash Pulmonary: Denies: Cough, Dyspnea Cardiovascular: Denies: Chest Pain, Palpitations Gastrointestinal: Denies: Nausea, Vomiting Hematologic: Denies: Bleeding Excessively, Bruising Objective Physical Examination General Exam: Positive: Alert, Cooperative, No Acute Distress ENT Exam: Positive: Atraumatic, Mucous membr. moist/pink Neck Exam: Negative: JVD Chest Exam: Positive: Clear to auscultation, Normal air movement Heart Exam: Positive: Normal S1, Normal S2, Rate Normal Abdomen Exam: Positive: Soft, Negative: Tenderness Male Exam: Negative: Edema, Erythema Vital Signs/I&O Vital Signs Date Time Temp Pulse Resp B/P Pulse Ox O2 Delivery O2 Flow Rate FiO2 11/04/16 09:54 67 122/83 11/04/16 09:00 Room Air 11/04/16 06:38 96.0 16 98 I&O- Last 24 Hours up to 6 AM 11/04/16 06:00 Intake Total 1670 ml Output Total 1150 ml Balance 520 ml Laboratory Data Labs 24H Laboratory Tests 2 11/03/16 19:03: Anion Gap 10, Blood Urea Nitrogen 9, Creatinine 0.81, Sodium Level 124L, Potassium Level 3.5, Chloride Level 90L, Carbon Dioxide Level 24, Calcium Level 7.9L, Glomerular Filtration Rate > 60.0 11/04/16 05:43: Anion Gap 12, Blood Urea Nitrogen 9, Creatinine 0.83, Sodium Level 127L, Potassium Level 3.8, Chloride Level 92L, Carbon Dioxide Level 23, Calcium Level 8.2L, Glomerular Filtration Rate > 60.0 CBC/BMP Laboratory Tests 11/03/16 19:03 Calcium Level 7.9 L 11/04/16 05:43 Calcium Level 8.2 L, Red Blood Count 4.40, Mean Corpuscular Volume 84.8, Mean Corpuscular Hemoglobin 30.7, Mean Corpuscular Hemoglobin Concent 36.2, Red Cell Distribution Width 13.4 Microbiology Microbiology 11/01/16 Urine Culture - Final, Complete Escherichia Coli RUDDY GILES MD Nov 04, 2016 13:58
[2016-11-04 14:00] VITALS: BP 146/84
[2016-11-04] MEDS ORDERED: rOPINIRole 0.25 MG TAB(REQUIP) PO PRN (14:03)
[2016-11-04 15:34] VITALS: BP_SYST 108; BP_SYST 167; BP_SYST 175; BP_DIAS 64; BP_DIAS 70; BP_DIAS 83
[2016-11-04] MEDS ORDERED: NS 1,000 ML IV SCH (16:15)
[2016-11-04 21:05] VITALS: BP 141/79
[2016-11-05] MEDS: PIPERACILLIN/TAZOBACTAM SOD 3.375 GM in D5W MINI-BAG PLUS 50 ML IV SCH ×2 (01:39→11:15)
[2016-11-05] MEDS: METOCLOPRAMIDE INJ 10MG/2ML VIAL (J2765) IV SCH ×3 (01:39→18:12)
[2016-11-05] MEDS: rOPINIRole 0.25 MG TAB(REQUIP) PO PRN (02:47)
[2016-11-05 05:33] LABS: MEAN CORPUSCULAR HEMOGLOBIN 30.4 pg (27.0-33.0); MEAN CORPUSCULAR HGB CONC 35.2 g/dl (32.0-36.5); MEAN CORPUSCULAR VOLUME 86.4 fl (80.0-96.0); WHITE BLOOD COUNT 5.2 K/mm3 (4.0-10.0)
[2016-11-05 05:46] LABS: ANION GAP 9 MEQ/L (8-16); BLOOD UREA NITROGEN 7 MG/DL (7-18); CALCIUM LEVEL 8.4 MG/DL (8.8-10.2); CARBON DIOXIDE LEVEL 22 MEQ/L (21-32); CHLORIDE LEVEL 96 MEQ/L (98-107); CREATININE FOR GFR 0.87 MG/DL (0.70-1.30); GLOMERULAR FILTRATION RATE > 60.0 (>35); GLUCOSE, FASTING 84 MG/DL (83-110); POTASSIUM SERUM 4.3 MEQ/L (3.5-5.1); SODIUM LEVEL 127 MEQ/L (136-145)
[2016-11-05 06:00] VITALS: BP_SYST 112; BP_SYST 161; BP_SYST 165; BP_DIAS 68; BP_DIAS 82; BP_DIAS 97
[2016-11-05 09:02] VITALS: BP 152/78
--- NOTE | 2016-11-05 09:09 | IPNPDOC ---
Date/Time Seen The patient was seen on 11/05/16 at 08:59. Progress Note DATE OF ENCOUNTER: 11/05/2016 SUBJECTIVE: Mr. Guevara was seen this morning at bedside. He reports that his nausea is improved. He had a little bit of dry heaves, no vomiting. He continues to have restless legs however son notices that he is a bit more confused and medication has been discontinued. Head CT did not show any acute findings. No abdominal pain or diarrhea. Denies any dizziness, chest pain, palpitations or shortness of breath. No fevers or chills. OBJECTIVE: Vital Signs Date Time Temp Pulse Resp B/P Pulse Ox O2 Delivery O2 Flow Rate FiO2 11/05/16 06:00 63 161/82 67 165/97 71 112/68 11/05/16 06:00 97.3 18 96 Room Air I&O- Last 24 Hours up to 6 AM 11/05/16 06:00 Intake Total 875 ml Output Total 850 ml Balance 25 ml GENERAL: Alert and oriented. In no acute distress. HEENT: Normocephalic, atraumatic. Extraocular muscles are intact. Mucosa appears moist. NECK: Supple. No cervical lymphadenopathy. No jugular venous distention appreciated. HEART: Normal S1, S2, regular rate and rhythm. LUNG: Clear to auscultation bilaterally. ABDOMEN: Soft. Nontender, nondistended. Bowel sounds are present. No rebound, guarding or rigidity. EXTREMITIES: No clubbing, cyanosis, or edema. Positive pedal pulses bilaterally. SKIN: Warm and dry. Good skin turgor. No rashes noted. NEUROLOGIC: No focal deficits. Motor and sensation intact. LABORATORY DATA: 11/05/16 05:05 Red Blood Count 4.46, Mean Corpuscular Volume 86.4, Mean Corpuscular Hemoglobin 30.4, Mean Corpuscular Hemoglobin Concent 35.2, Red Cell Distribution Width 13.0 , Anion Gap 9, Calcium Level 8.4L, Glomerular Filtration Rate > 60.0 MICROBIOLOGY: Urine culture collected on 11/01 is positive for Escherichia coli. IMAGING: CT of the abdomen and pelvis done on 11/01 revealed a 2.0 cm cyst on the right kidney, several small stable hepatic cysts, left colonic diverticulosis with mild pericolonic fat streaking suggestive of acute diverticulitis. No abscess or free air. Chest x-ray done on 11/01 did not reveal any acute disease. Head CT on 11/04 did not show any acute findings, revealed atrophy and small vessel age related changes ASSESSMENT AND PLAN: Mr. Guevara is an 86-year-old man with past medical history significant for atrial fibrillation, hypertension, GERD, coronary artery disease status post stenting, dyslipidemia, and sciatica who was admitted into the hospital with acute diverticulitis also found to have hyponatremia. 1. Hyponatremia. His GI symptoms could have triggered an inappropriate secretion of ADH. His uric acid was low and repeat urine sodium was also high. He is currently on sodium chloride 1 gram three times a day and sodium level remain at 127. Given the lack of improvement in sodium levels, we will give him a one time dose of 20mg of Lasix. Continue with 1500ml fluid restriction. Head CT did not show any acute findings. Sodium is not to be corrected more than 6-8 mEq in 24 hours. 2. Acute diverticulitis. He remains on IV Zosyn. GI symptoms are improving. Being managed by primary team. 3. Altered mentation per family member, likely multifactorial. Sodium is still low and he had an active infection. He was also initiated on Requip which has been discontinued this morning. Per son, he noticed intermittent confusion after the Requip was started a couple days ago. Head CT was negative. Mental status should be monitored closely. 4. Orthostatic hypotension, likely medication induced. Requip that was started for restless legs has been discontinued. Continue to monitor blood pressures, as he is on Norvasc and Diovan. 5. Restless legs. Requip has been discontinued due to altered mentation. GME ATTESTATION GME ATTESTATION My preceptor for this patient encounter was physically present in the building during the encounter and was fully available. As needed, all aspects of the patient interview, examination, medical decision making process, and medical care plan development were reviewed and approved by the preceptor. Preceptor is aware and concurs with the plan as stated in the body of this note and will attest to such by his/her cosignature. GLORIA SHAFFER DO Nov 05, 2016 09:09
[2016-11-05] MEDS ORDERED: FUROSEMIDE 20 MG/2 ML VIAL (J1940) IV ONE (10:30)
[2016-11-05] MEDS: ATORVASTATIN 20 MG TAB PO SCH (11:13)
[2016-11-05] MEDS: SODIUM CHLORIDE 1 GM TAB PO SCH ×3 (11:13→21:29)
[2016-11-05] MEDS: APIXABAN 5 MG TAB (ELIQUIS) PO SCH ×2 (11:13→21:29)
[2016-11-05] MEDS: POTASSIUM CHLORIDE 10 MEQ SR TABLET PO SCH ×3 (11:13→21:33)
[2016-11-05] MEDS: SENOKOT S TAB PO SCH ×2 (11:14→21:00)
[2016-11-05] MEDS: amLODIPine 5 MG TAB PO SCH (11:14)
[2016-11-05] MEDS: CLOPIDOGREL 75 MG TAB PO SCH (11:14)
[2016-11-05] MEDS: MIRALAX *UNIT DOSE* 17GM PACKET PO SCH (11:14)
[2016-11-05] MEDS: PANTOPRAZOLE 40MG INJ (PROTONIX) (C9113) IV SCH ×2 (11:15→21:33)
[2016-11-05] MEDS: TIMOLOL MALEATE 0.5% OPHTH SOLN 5 ML OU SCH ×2 (11:15→21:29)
[2016-11-05] MEDS: VALSARTAN 80 MG TAB (DIOVAN) PO SCH (11:18)
--- NOTE | 2016-11-05 11:42 | IPNPDOC ---
Assessment/Plan Date Seen The patient was seen on 11/05/16. Plan / VTE VTE Prophylaxis Ordered?: Yes Plan Plan Text Acute diverticulitis. Patient remains afebrile and without leukocytosis this morning Denies any abdominal pain at this time Continue Zofran, Reglan also added Biotics switched to by mouth amoxicillin/clavulanate today Diet advanced to mechanical soft Continue to monitor the patient's progress Hyponatremia. Possibly secondary to SIADH Urine studies noted On Salt Tablets Serum Na 127 today Nephro on board We will continue to monitor Restless leg syndrome Patient was previously started on Requip for this However, was noted to have some confusion as per the patient's family We have discontinued this medication and we will continue to monitor the patient 's progress at this time Orthostatic hypotension Likely secondary to use of Requip IV fluid hydration ordered We will repeat orthostatic BP Atrial fibrillation. Rate controlled, continue on Eliquis Hypertension Stable, continue on Diovan and amlodipine. Gastroesophageal reflux disease Continue PPI Dyslipidemia. Continue statin. Coronary artery disease. Continue on Plavix, statin. Deep vein thrombosis (DVT) prophylaxis. Already on Eliquis. Disposition: Pending clinical improvement, physical therapy. Subjective Review of Systems CC/HPI The patient is a 86-year-old male admitted with a reason for visit of Diverticulitis. General: Denies: Chills, Night Sweats Constitutional: Denies: Chills, Fever Eyes: Denies: Pain, Vision change ENT: Denies: Ear Pain, Head Aches Pulmonary: Denies: Cough, Dyspnea Cardiovascular: Denies: Chest Pain, Palpitations Gastrointestinal: Denies: Abdominal Pain, Nausea, Vomiting Hematologic: Denies: Bleeding Excessively, Bruising Musculoskeletal: Denies: Back Pain, Neck Pain Objective Physical Examination General Exam: Positive: Alert, Cooperative, No Acute Distress ENT Exam: Positive: Atraumatic, Mucous membr. moist/pink Neck Exam: Negative: JVD Chest Exam: Positive: Clear to auscultation, Normal air movement Heart Exam: Positive: Normal S1, Normal S2, Rate Normal Abdomen Exam: Positive: Soft, Negative: Tenderness Male Exam: Negative: Edema, Erythema Extremity Exam: Negative: Swelling, Tenderness Vital Signs/I&O Vital Signs Date Time Temp Pulse Resp B/P Pulse Ox O2 Delivery O2 Flow Rate FiO2 11/05/16 11:14 62 152/78 11/05/16 09:02 96.9 16 97 Room Air I&O- Last 24 Hours up to 6 AM 11/05/16 06:00 Intake Total 875 ml Output Total 850 ml Balance 25 ml Laboratory Data Labs 24H Laboratory Tests 2 11/05/16 05:05: Anion Gap 9, Blood Urea Nitrogen 7, Creatinine 0.87, Sodium Level 127L, Potassium Level 4.3, Chloride Level 96L, Carbon Dioxide Level 22, Calcium Level 8.4L, Glomerular Filtration Rate > 60.0 CBC/BMP Laboratory Tests 11/05/16 05:05 Calcium Level 8.4 L, Red Blood Count 4.46, Mean Corpuscular Volume 86.4, Mean Corpuscular Hemoglobin 30.4, Mean Corpuscular Hemoglobin Concent 35.2, Red Cell Distribution Width 13.0 Microbiology Microbiology 11/01/16 Urine Culture - Final, Complete Escherichia Coli RUDDY GILES MD Nov 05, 2016 11:42
[2016-11-05 14:39] VITALS: BP_SYST 143; BP_SYST 161; BP_SYST 96; BP_DIAS 57; BP_DIAS 74; BP_DIAS 82
[2016-11-05 14:40] VITALS: BP 144/72
[2016-11-05] MEDS ORDERED: GABAPENTIN 100 MG CAP PO SCH (16:00)
[2016-11-05] MEDS: AUGMENTIN 875 MG TAB PO SCH (21:29)
[2016-11-05 22:00] VITALS: BP 142/80
[2016-11-06] MEDS: METOCLOPRAMIDE INJ 10MG/2ML VIAL (J2765) IV SCH ×3 (02:01→17:12)
[2016-11-06 05:44] LABS: ANION GAP 9 MEQ/L (8-16); BLOOD UREA NITROGEN 7 MG/DL (7-18); CARBON DIOXIDE LEVEL 21 MEQ/L (21-32); CHLORIDE LEVEL 100 MEQ/L (98-107); CREATININE FOR GFR 0.79 MG/DL (0.70-1.30); GLOMERULAR FILTRATION RATE > 60.0 (>35); GLUCOSE, FASTING 88 MG/DL (83-110); POTASSIUM SERUM 4.5 MEQ/L (3.5-5.1); SODIUM LEVEL 130 MEQ/L (136-145)
[2016-11-06 05:45] LABS: CALCIUM LEVEL 8.6 MG/DL (8.8-10.2)
[2016-11-06 06:00] VITALS: BP 133/77
[2016-11-06 06:01] LABS: MEAN CORPUSCULAR HEMOGLOBIN 30.7 pg (27.0-33.0); MEAN CORPUSCULAR VOLUME 85.2 fl (80.0-96.0); RED CELL DISTRIBUTION WIDTH 12.9 % (11.5-14.5); WHITE BLOOD COUNT 4.7 K/mm3 (4.0-10.0)
[2016-11-06 07:00] VITALS: BP_SYST 110; BP_SYST 133; BP_SYST 139; BP_DIAS 66; BP_DIAS 71; BP_DIAS 77
[2016-11-06] MEDS: MIRALAX *UNIT DOSE* 17GM PACKET PO SCH (09:24)
[2016-11-06] MEDS: SODIUM CHLORIDE 1 GM TAB PO SCH ×3 (09:25→20:13)
[2016-11-06] MEDS: POTASSIUM CHLORIDE 10 MEQ SR TABLET PO SCH ×2 (09:25→17:11)
[2016-11-06] MEDS: ATORVASTATIN 20 MG TAB PO SCH (09:25)
[2016-11-06] MEDS: APIXABAN 5 MG TAB (ELIQUIS) PO SCH ×2 (09:25→20:13)
[2016-11-06] MEDS: VALSARTAN 80 MG TAB (DIOVAN) PO SCH (09:25)
[2016-11-06] MEDS: PANTOPRAZOLE 40MG INJ (PROTONIX) (C9113) IV SCH ×2 (09:26→20:12)
[2016-11-06] MEDS: AUGMENTIN 875 MG TAB PO SCH ×2 (09:26→20:13)
[2016-11-06] MEDS: CLOPIDOGREL 75 MG TAB PO SCH (09:26)
[2016-11-06] MEDS: amLODIPine 5 MG TAB PO SCH (09:26)
[2016-11-06] MEDS: SENOKOT S TAB PO SCH ×2 (09:26→20:13)
[2016-11-06] MEDS: TIMOLOL MALEATE 0.5% OPHTH SOLN 5 ML OU SCH ×2 (09:27→20:12)
[2016-11-06] MEDS ORDERED: FUROSEMIDE 20 MG TAB PO ONE (10:30)
--- NOTE | 2016-11-06 10:40 | IPNPDOC ---
Assessment/Plan Date Seen The patient was seen on 11/06/16. Plan / VTE VTE Prophylaxis Ordered?: Yes Plan Plan Text Acute diverticulitis. 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 Rate controlled, continue on Eliquis Hypertension Stable, continue on Diovan and amlodipine. Gastroesophageal reflux disease Continue PPI Dyslipidemia. Continue statin. Coronary artery disease. Continue on Plavix, statin. Deep vein thrombosis (DVT) prophylaxis. Already on Eliquis. Disposition: Pending clinical improvement, physical therapy. Subjective Review of Systems CC/HPI The patient is a 86-year-old male admitted with a reason for visit of Diverticulitis. General: Denies: Chills, Night Sweats Constitutional: Denies: Chills, Fever Eyes: Denies: Pain, Vision change ENT: Denies: Ear Pain, Head Aches Skin: Denies: Lesions, Rash Pulmonary: Denies: Cough, Dyspnea Cardiovascular: Denies: Chest Pain, Orthopnea, Palpitations Gastrointestinal: Denies: Nausea, Vomiting Hematologic: Denies: Bleeding Excessively, Bruising Objective Physical Examination General Exam: Positive: Alert, Cooperative, No Acute Distress ENT Exam: Positive: Atraumatic, Mucous membr. moist/pink Neck Exam: Negative: JVD Chest Exam: Positive: Clear to auscultation, Normal air movement Heart Exam: Positive: Normal S1, Normal S2, Rate Normal Abdomen Exam: Positive: Soft, Negative: Tenderness Male Exam: Negative: Edema, Erythema Extremity Exam: Negative: Swelling, Tenderness Vital Signs/I&O Vital Signs Date Time Temp Pulse Resp B/P Pulse Ox O2 Delivery O2 Flow Rate FiO2 11/06/16 09:26 67 11/06/16 09:25 145/73 11/06/16 06:00 97.0 18 96 11/05/16 21:29 Room Air I&O- Last 24 Hours up to 6 AM 11/06/16 06:00 Intake Total 710 ml Output Total 1825 ml Balance -1115 ml Laboratory Data Labs 24H Laboratory Tests 2 11/06/16 05:04: Anion Gap 9, Blood Urea Nitrogen 7, Creatinine 0.79, Sodium Level 130L, Potassium Level 4.5, Chloride Level 100, Carbon Dioxide Level 21, Calcium Level 8.6L, Glomerular Filtration Rate > 60.0 CBC/BMP Laboratory Tests 11/06/16 05:04 Calcium Level 8.6 L, Red Blood Count 4.18 L, Mean Corpuscular Volume 85.2, Mean Corpuscular Hemoglobin 30.7, Mean Corpuscular Hemoglobin Concent 36.0, Red Cell Distribution Width 12.9 Microbiology Microbiology 11/01/16 Urine Culture - Final, Complete Escherichia Coli RUDDY GILES MD Nov 06, 2016 10:40
[2016-11-06] MEDS: ONDANSETRON 4MG/2ML VIAL (J2405) IV PRN (12:48)
[2016-11-06 14:00] VITALS: BP 145/78
[2016-11-06 22:00] VITALS: BP 142/66
[2016-11-07] MEDS: METOCLOPRAMIDE INJ 10MG/2ML VIAL (J2765) IV SCH ×3 (02:10→17:56)
[2016-11-07 06:00] VITALS: BP 144/67
[2016-11-07 06:08] LABS: MEAN CORPUSCULAR HEMOGLOBIN 30.7 pg (27.0-33.0); MEAN CORPUSCULAR HGB CONC 35.1 g/dl (32.0-36.5); MEAN CORPUSCULAR VOLUME 87.6 fl (80.0-96.0); RED CELL DISTRIBUTION WIDTH 13.1 % (11.5-14.5); WHITE BLOOD COUNT 4.9 K/mm3 (4.0-10.0)
[2016-11-07 06:34] LABS: ANION GAP 9 MEQ/L (8-16); BLOOD UREA NITROGEN 10 MG/DL (7-18); CALCIUM LEVEL 8.7 MG/DL (8.8-10.2); CARBON DIOXIDE LEVEL 26 MEQ/L (21-32); CHLORIDE LEVEL 101 MEQ/L (98-107); CREATININE FOR GFR 1.16 MG/DL (0.70-1.30); GLOMERULAR FILTRATION RATE > 60.0 (>35); GLUCOSE, FASTING 90 MG/DL (83-110); POTASSIUM SERUM 4.5 MEQ/L (3.5-5.1); SODIUM LEVEL 136 MEQ/L (136-145)
--- NOTE | 2016-11-07 08:33 | IPN ---
DATE: 11/06/2016 SUBJECTIVE: Mr. Guevara is seen this morning on his bedside. He is sitting in the chair at the time of my visit. He reports feeling better today. The patient reports some prolonged dreams through the night. However he denies any distress. His restless leg symptoms have improved. The patient denies any headache, dizziness, nausea, vomiting, dyspnea or chest pain. He reports improved appetite and he ate breakfast much better this morning. PHYSICAL EXAMINATION: VITAL SIGNS: Temperature 97 degrees Fahrenheit, heart rate 68 per minute and respiratory rate 18 per minute. Blood pressure 145/73 mmHg and oxygen saturation 96% on room air. Intake and output records from yesterday showed total intake 640 and output 1775 mL. HEENT: His head is atraumatic. Ears, nose and throat are unremarkable. Pupils equal and reactive to light and sclerae are anicteric. Oral mucosa is moist and healthy. NECK: Supple and without jugular venous distention (JVD) or thyroid enlargement. Trachea is midline. HEART: Sounds regular. RESPIRATORY: Lungs clear to auscultation. ABDOMEN: Soft and nontender. There is no palpable organomegaly and bowel sounds are normal. EXTREMITIES: Have no cyanosis or clubbing. SKIN: Has no rash or ulcers. NEUROLOGIC: He seems to be somewhat improved today. He is awake, alert and oriented times three. There is no focal neurological deficit. LABORATORY DATA: Today's labs show WBC count 4.7, hemoglobin 12.8, hematocrit 35.6 and platelets 207. Sodium 130 and potassium 4.5. BUN 7 and creatinine 0.79. Calcium level is 8.6. PROBLEMS: 1. Hyponatremia. Gradually his sodium level is improving. He will be given an other dose of Lasix 20 mg by mouth today. We will continue oral fluid restriction of 1500 mL per day. The patient also remains on oral sodium chloride tablets 1000 mg three times a day. 2. Hypokalemia. Potassium level has also improved. I will cut down his potassium supplement to 20 mEq once a day. 3. Altered mentation and restless legs. Etiology remains uncertain. He may have some contribution from hyponatremia. CT scan of head is unremarkable. His sodium level is gradually improving and the patient's symptoms are also improved. 4. Diverticulitis. The patient remains on intravenous antibiotics and his gastrointestinal (GI) symptoms have also improved.
[2016-11-07] MEDS: PANTOPRAZOLE 40MG INJ (PROTONIX) (C9113) IV SCH ×2 (09:19→20:22)
[2016-11-07] MEDS: MIRALAX *UNIT DOSE* 17GM PACKET PO SCH (09:19)
[2016-11-07] MEDS: AUGMENTIN 875 MG TAB PO SCH ×2 (09:19→20:23)
[2016-11-07] MEDS: VALSARTAN 80 MG TAB (DIOVAN) PO SCH (09:20)
[2016-11-07] MEDS: ATORVASTATIN 20 MG TAB PO SCH (09:20)
[2016-11-07] MEDS: SODIUM CHLORIDE 1 GM TAB PO SCH ×2 (09:20→20:22)
[2016-11-07] MEDS: APIXABAN 5 MG TAB (ELIQUIS) PO SCH ×2 (09:21→20:23)
[2016-11-07] MEDS: SENOKOT S TAB PO SCH ×2 (09:21→20:23)
[2016-11-07] MEDS: CLOPIDOGREL 75 MG TAB PO SCH (09:21)
[2016-11-07] MEDS: TIMOLOL MALEATE 0.5% OPHTH SOLN 5 ML OU SCH ×2 (09:22→20:23)
[2016-11-07] MEDS: amLODIPine 5 MG TAB PO SCH (09:22)
--- NOTE | 2016-11-07 10:51 | IPNPDOC ---
Date/Time Seen The patient was seen on 11/07/16 at 10:41. Progress Note DATE OF ENCOUNTER: 11/07/2016 SUBJECTIVE: Mr. Guevara was seen this morning at bedside. He reports that he is feeling well. No nausea this morning. No vomiting, abdominal pain or diarrhea. Restless legs are stable. Mentation is improved. He denies any dizziness, chest pain, palpitations or shortness of breath. No fevers or chills. OBJECTIVE: Vital Signs Date Time Temp Pulse Resp B/P Pulse Ox O2 Delivery O2 Flow Rate FiO2 11/07/16 09:22 67 165/87 11/07/16 09:19 Room Air 11/07/16 06:00 97.9 17 98 I&O- Last 24 Hours up to 6 AM 11/07/16 06:00 Intake Total 540 ml Output Total 800 ml Balance -260 ml GENERAL: Alert and oriented. In no acute distress. HEENT: Normocephalic, atraumatic. Extraocular muscles are intact. Mucosa appears moist. NECK: Supple. No cervical lymphadenopathy. No jugular venous distention appreciated. HEART: Normal S1, S2, regular rate and rhythm. LUNG: Clear to auscultation bilaterally. ABDOMEN: Soft. Nontender, nondistended. Bowel sounds are present. No rebound, guarding or rigidity. EXTREMITIES: No clubbing, cyanosis, or edema. Positive pedal pulses bilaterally. SKIN: Warm and dry. Good skin turgor. No rashes noted. NEUROLOGIC: No focal deficits. Motor and sensation intact. LABORATORY DATA: 11/07/16 05:25 IMAGING: CT of the abdomen and pelvis done on 11/01 revealed a 2.0 cm cyst on the right kidney, several small stable hepatic cysts, left colonic diverticulosis with mild pericolonic fat streaking suggestive of acute diverticulitis. No abscess or free air. Chest x-ray done on 11/01 did not reveal any acute disease. Head CT on 11/04 did not show any acute findings, revealed atrophy and small vessel age related changes ASSESSMENT AND PLAN: Mr. Guevara is an 86-year-old man with past medical history significant for atrial fibrillation, hypertension, GERD, coronary artery disease status post stenting, dyslipidemia, and sciatica who was admitted into the hospital with acute diverticulitis also found to have hyponatremia. 1. Hyponatremia. His GI symptoms likely triggered an inappropriate secretion of ADH. He received another dose of Lasix yesterday and sodium levels have improved. Sodium chloride is being decreased to 1 g twice daily. Continue with 1500ml fluid restriction. 2. Altered mentation. Sodium levels have normalized, infection has been treated and his Requip was discontinued. His mentation has improved. Head CT was negative. 3. Acute diverticulitis. He is currently on Augmentin. GI symptoms have improved. 4. Hypertension. Blood pressure stable. Continue Norvasc and Diovan. 5. Restless legs. He was initiated on gabapentin per primary team. GME ATTESTATION GME ATTESTATION My preceptor for this patient encounter was physically present in the building during the encounter and was fully available. As needed, all aspects of the patient interview, examination, medical decision making process, and medical care plan development were reviewed and approved by the preceptor. Preceptor is aware and concurs with the plan as stated in the body of this note and will attest to such by his/her cosignature. GLORIA SHAFFER DO Nov 07, 2016 10:51
--- NOTE | 2016-11-07 11:34 | IPNPDOC ---
Assessment/Plan Date Seen The patient was seen on 11/07/16. Plan / VTE VTE Prophylaxis Ordered?: Yes Plan Plan Text Acute diverticulitis. 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 Rate controlled, continue on Eliquis Hypertension Stable, continue on Diovan and amlodipine. Gastroesophageal reflux disease Continue PPI Dyslipidemia. Continue statin. Coronary artery disease. Continue on Plavix, statin. Deep vein thrombosis (DVT) prophylaxis. Already on Eliquis. Disposition: Pending Physical Therapy. Spoke to the patient's son today--they are working towards getting a bed at [facility] for him. I have contacted out case management team to help facilitate this process for us. Subjective Review of Systems CC/HPI The patient is a 86-year-old male admitted with a reason for visit of Diverticulitis. General: Denies: Chills, Night Sweats Constitutional: Denies: Chills, Fever Eyes: Denies: Pain, Vision change ENT: Denies: Ear Pain, Head Aches Skin: Denies: Lesions, Rash Pulmonary: Denies: Cough, Dyspnea Gastrointestinal: Denies: Nausea, Vomiting Hematologic: Denies: Bleeding Excessively, Bruising Objective Physical Examination General Exam: Positive: Alert, Cooperative, No Acute Distress ENT Exam: Positive: Atraumatic, Mucous membr. moist/pink Neck Exam: Negative: JVD Chest Exam: Positive: Clear to auscultation, Normal air movement Heart Exam: Positive: Normal S1, Normal S2, Rate Normal Abdomen Exam: Positive: Soft, Negative: Tenderness Male Exam: Negative: Edema, Erythema Extremity Exam: Negative: Swelling, Tenderness Vital Signs/I&O Vital Signs Date Time Temp Pulse Resp B/P Pulse Ox O2 Delivery O2 Flow Rate FiO2 11/07/16 09:22 67 165/87 11/07/16 09:19 Room Air 11/07/16 06:00 97.9 17 98 I&O- Last 24 Hours up to 6 AM 11/07/16 06:00 Intake Total 540 ml Output Total 800 ml Balance -260 ml Laboratory Data Labs 24H Laboratory Tests 2 11/07/16 05:25: Anion Gap 9, Blood Urea Nitrogen 10, Creatinine 1.16, Sodium Level 136, Potassium Level 4.5, Chloride Level 101, Carbon Dioxide Level 26, Calcium Level 8.7L, Glomerular Filtration Rate > 60.0 CBC/BMP Laboratory Tests 11/07/16 05:25 Calcium Level 8.7 L, Red Blood Count 4.19 L, Mean Corpuscular Volume 87.6, Mean Corpuscular Hemoglobin 30.7, Mean Corpuscular Hemoglobin Concent 35.1, Red Cell Distribution Width 13.1 Microbiology Microbiology 11/01/16 Urine Culture - Final, Complete Escherichia Coli RUDDY GILES MD Nov 07, 2016 11:34
[2016-11-07 14:00] VITALS: BP 133/66
[2016-11-07 22:00] VITALS: BP 134/71
[2016-11-08] MEDS: METOCLOPRAMIDE INJ 10MG/2ML VIAL (J2765) IV SCH ×3 (02:23→18:12)
[2016-11-08 06:08] LABS: MEAN CORPUSCULAR HEMOGLOBIN 31.1 pg (27.0-33.0); MEAN CORPUSCULAR HGB CONC 35.2 g/dl (32.0-36.5); MEAN CORPUSCULAR VOLUME 88.3 fl (80.0-96.0); WHITE BLOOD COUNT 5.6 K/mm3 (4.0-10.0)
[2016-11-08 06:26] LABS: ANION GAP 7 MEQ/L (8-16); BLOOD UREA NITROGEN 13 MG/DL (7-18); CALCIUM LEVEL 8.6 MG/DL (8.8-10.2); CARBON DIOXIDE LEVEL 26 MEQ/L (21-32); CHLORIDE LEVEL 106 MEQ/L (98-107); CREATININE FOR GFR 1.03 MG/DL (0.70-1.30); GLOMERULAR FILTRATION RATE > 60.0 (>35); GLUCOSE, FASTING 95 MG/DL (83-110); POTASSIUM SERUM 3.9 MEQ/L (3.5-5.1); SODIUM LEVEL 139 MEQ/L (136-145)
[2016-11-08] MEDS: VALSARTAN 80 MG TAB (DIOVAN) PO SCH (08:59)
[2016-11-08] MEDS: APIXABAN 5 MG TAB (ELIQUIS) PO SCH (08:59)
[2016-11-08] MEDS: ATORVASTATIN 20 MG TAB PO SCH (08:59)
[2016-11-08] MEDS: SENOKOT S TAB PO SCH ×2 (08:59→20:34)
[2016-11-08] MEDS: MIRALAX *UNIT DOSE* 17GM PACKET PO SCH (09:00)
[2016-11-08] MEDS: CLOPIDOGREL 75 MG TAB PO SCH (09:00)
[2016-11-08] MEDS: TIMOLOL MALEATE 0.5% OPHTH SOLN 5 ML OU SCH ×2 (09:00→20:35)
[2016-11-08] MEDS: PANTOPRAZOLE 40MG INJ (PROTONIX) (C9113) IV SCH ×2 (09:00→20:34)
[2016-11-08] MEDS: AUGMENTIN 875 MG TAB PO SCH ×2 (09:00→20:34)
[2016-11-08] MEDS: SODIUM CHLORIDE 1 GM TAB PO SCH (09:00)
[2016-11-08] MEDS: amLODIPine 5 MG TAB PO SCH (09:00)
--- NOTE | 2016-11-08 11:50 | IPN ---
DATE: 11/08/2016 86-year-old gentleman seen at bedside, resting comfortable. No complaints. He did participate with physical therapy (PT) and is cleared from their standpoint. Did have a brief discussion with his family members that are present at the bedside. They are working closely with patient and family services ([facility]) and [facility] to try to have him placed either tomorrow or the next day. He denies chest pain, shortness of breath. No nausea or vomiting. He is tolerating his meals. OBJECTIVE: VITAL SIGNS: Temperature 99, pulse 66, respiratory rate 18, blood pressure 134/71, SpO2 is 95% on room air. GENERAL: The patient appears to be in no acute distress. He is alert and oriented. HEENT: Unremarkable. LUNGS: Clear. HEART: Regular rate and rhythm. ABDOMEN: Soft. EXTREMITIES: No edema or calf tenderness. LABORATORY DATA: White count is 5.6, hemoglobin 12.5 platelets 228. Sodium 139, potassium 3.9, chloride 106, bicarbonate 26, anion gap 7, BUN is 13, creatinine 1.03, glucose 95. ASSESSMENT AND PLAN: 1. Acute diverticulitis, symptomatically resolved. Tolerating meals. No specific complaint of abdominal pain. He remains afebrile with normal white count. We will finish out the antibiotics over the next 7 days. 2. Bacteruria. He did have a urine culture positive for E coli, but the colony count was less than 20,000. He was asymptomatic. No further treatment needed since this is asymptomatic bacteruria. 3. Hyponatremia, resolved. 4. Restless leg syndrome. He has had Requip discontinued due to confusion, complaint of dizziness, orthostatic hypotension, possibly related to the Requip. Doing well otherwise. 5. Orthostatic hypotension, resolved. 6. Atrial fibrillation, rate controlled. Continue on Eliquis. 7. Hypertension, stable on Diovan and amlodipine. 8. Gastroesophageal reflux disease (GERD). Continue on proton pump inhibitor. 9. Dyslipidemia. Continue statin therapy. 10. Coronary artery disease. Continue Plavix and statin. 11. Deep vein thrombosis (DVT) prophylaxis. The patient is currently on Eliquis. DISPOSITION: He has done well with physical therapy (PT). I spoke to patient and family services ([facility]) and they are currently working on a bed for him at [facility]. We will anticipate discharge either tomorrow or the next day.
[2016-11-08 14:00] VITALS: BP 127/69
--- NOTE | 2016-11-08 20:45 | IPNPDOC ---
Date/Time Seen The patient was seen on 11/08/16 at 20:37. Progress Note DATE OF ENCOUNTER: 11/08/2016 SUBJECTIVE: Mr. Guevara was seen this morning at bedside. He reports that he is feeling well. No nausea, vomiting, abdominal pain, diarrhea, dizziness, chest pain, palpitations or shortness of breath. No fevers or chills. He reports that his restless legs feel better. OBJECTIVE: Vital Signs Date Time Temp Pulse Resp B/P Pulse Ox O2 Delivery O2 Flow Rate FiO2 11/08/16 14:00 96.0 69 18 127/69 94 Room Air I&O- Last 24 Hours up to 6 AM 11/08/16 06:00 Intake Total 540 ml Output Total 100 ml Balance 440 ml GENERAL: Alert and oriented. In no acute distress. HEENT: Normocephalic, atraumatic. Extraocular muscles are intact. Mucosa appears moist. NECK: Supple. No cervical lymphadenopathy. No jugular venous distention appreciated. HEART: Normal S1, S2, regular rate and rhythm. LUNG: Clear to auscultation bilaterally. ABDOMEN: Soft. Nontender, nondistended. Bowel sounds are present. No rebound, guarding or rigidity. EXTREMITIES: No clubbing, cyanosis, or edema. Positive pedal pulses bilaterally. SKIN: Warm and dry. Good skin turgor. No rashes noted. NEUROLOGIC: No focal deficits. Motor and sensation intact. LABORATORY DATA: 11/08/16 05:45 IMAGING: CT of the abdomen and pelvis done on 11/01 revealed a 2.0 cm cyst on the right kidney, several small stable hepatic cysts, left colonic diverticulosis with mild pericolonic fat streaking suggestive of acute diverticulitis. No abscess or free air. Chest x-ray done on 11/01 did not reveal any acute disease. Head CT on 11/04 did not show any acute findings, revealed atrophy and small vessel age related changes ASSESSMENT AND PLAN: Mr. Guevara is an 86-year-old man with past medical history significant for atrial fibrillation, hypertension, GERD, coronary artery disease status post stenting, dyslipidemia, and sciatica who was admitted into the hospital with acute diverticulitis also found to have hyponatremia. 1. Hyponatremia. His GI symptoms likely triggered an inappropriate secretion of ADH. GI symptoms have resolved and sodium levels have normalized. Sodium chloride tablets are being discontinued. He remains on a 1500ml fluid restriction. 2. Altered mentation. Sodium levels have normalized, infection has been treated and his Requip was discontinued. His mentation is back to baseline. Head CT was negative. 3. Acute diverticulitis. He is currently on Augmentin. GI symptoms have resolved. 4. Hypertension. Blood pressure stable. Continue Norvasc and Diovan. 5. Restless legs. He reports that this is stable. GME ATTESTATION GME ATTESTATION My preceptor for this patient encounter was physically present in the building during the encounter and was fully available. As needed, all aspects of the patient interview, examination, medical decision making process, and medical care plan development were reviewed and approved by the preceptor. Preceptor is aware and concurs with the plan as stated in the body of this note and will attest to such by his/her cosignature. GLORIA SHAFFER DO Nov 08, 2016 20:45
[2016-11-08 22:00] VITALS: BP 155/88
[2016-11-09] MEDS: METOCLOPRAMIDE INJ 10MG/2ML VIAL (J2765) IV SCH ×2 (02:10→09:19)
[2016-11-09 06:00] VITALS: BP 144/78
[2016-11-09 06:09] LABS: MEAN CORPUSCULAR HEMOGLOBIN 29.9 pg (27.0-33.0); MEAN CORPUSCULAR HGB CONC 33.7 g/dl (32.0-36.5); RED CELL DISTRIBUTION WIDTH 13.1 % (11.5-14.5); WHITE BLOOD COUNT 5.5 K/mm3 (4.0-10.0)
[2016-11-09 06:17] LABS: ANION GAP 7 MEQ/L (8-16); BLOOD UREA NITROGEN 17 MG/DL (7-18); CALCIUM LEVEL 8.7 MG/DL (8.8-10.2); CARBON DIOXIDE LEVEL 27 MEQ/L (21-32); CHLORIDE LEVEL 107 MEQ/L (98-107); CREATININE FOR GFR 1.07 MG/DL (0.70-1.30); GLOMERULAR FILTRATION RATE > 60.0 (>35); GLUCOSE, FASTING 87 MG/DL (83-110); SODIUM LEVEL 141 MEQ/L (136-145)
[2016-11-09] MEDS: MIRALAX *UNIT DOSE* 17GM PACKET PO SCH (09:00)
[2016-11-09] MEDS: SENOKOT S TAB PO SCH (09:00)
[2016-11-09] MEDS: ATORVASTATIN 20 MG TAB PO SCH (09:18)
[2016-11-09] MEDS: CLOPIDOGREL 75 MG TAB PO SCH (09:18)
[2016-11-09] MEDS: AUGMENTIN 875 MG TAB PO SCH (09:18)
[2016-11-09] MEDS: PANTOPRAZOLE 40MG INJ (PROTONIX) (C9113) IV SCH (09:18)
[2016-11-09 09:19] VITALS: BP 140/82
[2016-11-09] MEDS: amLODIPine 5 MG TAB PO SCH (09:19)
[2016-11-09] MEDS: VALSARTAN 80 MG TAB (DIOVAN) PO SCH (09:19)
[2016-11-09] MEDS: TIMOLOL MALEATE 0.5% OPHTH SOLN 5 ML OU SCH (09:20)
--- NOTE | 2016-11-09 09:39 | IPN ---
DATE OF SERVICE: 11/09/2016 This is an 86-year-old gentleman seen at bedside. He is resting comfortably. No overnight issues. He denies chest pain, shortness breath, nausea, vomiting. He tolerated his breakfast meal this morning without any difficulty. He had a bowel movement yesterday. No current issues. OBJECTIVE: Temperature is 96.6, pulse 58, respiratory rate 17, blood pressure (BP) 144/78, SpO2 is 97% on room air. General: The patient appears to be in no acute distress. He is alert, pleasant to talk to. HEENT: Unremarkable. Lungs: Clear. Heart: Regular rate and rhythm. Abdomen: Soft. Extremities: No edema. No calf tenderness. LABORATORIES: White count is 5.5, hemoglobin 12.7, platelets are 235,000. Sodium 141, potassium 4.0, chloride 107, bicarbonate 27, anion gap 7, BUN is 17, creatinine 1.07, glucose 87, calcium 8.7. ASSESSMENT AND PLAN: 1. Acute diverticulitis. Symptomatically resolved. Doing well with his meals. No current issues. He will need to finish out his antibiotics. 2. Asymptomatic bacteruria. No current issues. No further treatment required. 3. Hyponatremia, resolved. 4. Restless legs syndrome. His Requip has been discontinued due to confusion, dizziness, orthostatic issues. Otherwise, he is doing well. 5. Orthostatic hypotension, resolved. 6. Atrial fibrillation. Rate controlled and anticoagulated on Eliquis. 7. Hypertension, stable on Diovan and amlodipine. 8. Gastroesophageal reflux disease (GERD). Continue proton pump inhibitor (PPI). 9. Dyslipidemia. On statin therapy. 10. Coronary artery disease. No current symptoms. Continue on Plavix and statin. 11. Deep venous thrombosis (DVT) prophylaxis. Currently on Eliquis. DISPOSITION: He will need some further physical therapy. I spoke to patient and family services (PFS) this morning. Anticipating discharge either today or tomorrow to [facility].
[2016-11-09] MEDS ORDERED: ONDANSETRON 4 MG ORAL DISINTEGRATING TAB (S0181) PO PRN (10:30)
--- NOTE | 2016-11-09 11:49 | IPNPDOC ---
Date/Time Seen The patient was seen on 11/09/16 at 11:45. Progress Note DATE OF ENCOUNTER: 11/09/2016 SUBJECTIVE: Mr. Guevara was seen this morning at bedside. He reports that he is feeling well. No acute overnight issues, No nausea, vomiting, abdominal pain, diarrhea, dizziness, headache, chest pain, palpitations or shortness of breath. No fevers or chills. He reports that his restless legs feel better. OBJECTIVE: Vital Signs Date Time Temp Pulse Resp B/P Pulse Ox O2 Delivery O2 Flow Rate FiO2 11/09/16 09:20 Room Air 11/09/16 09:19 140/82 11/09/16 06:00 96.6 58 17 97 I&O- Last 24 Hours up to 6 AM 11/09/16 05:59 Intake Total 420 ml Output Total 0 ml Balance 420 ml GENERAL: Alert and oriented. In no acute distress. HEENT: Normocephalic, atraumatic. Extraocular muscles are intact. Mucosa appears moist. NECK: Supple. No cervical lymphadenopathy. No jugular venous distention appreciated. HEART: Normal S1, S2, regular rate and rhythm. LUNG: Clear to auscultation bilaterally. ABDOMEN: Soft. Nontender, nondistended. Bowel sounds are present. No rebound, guarding or rigidity. EXTREMITIES: No clubbing, cyanosis, or edema. Positive pedal pulses bilaterally. SKIN: Warm and dry. Good skin turgor. No rashes noted. NEUROLOGIC: No focal deficits. Motor and sensation intact. LABORATORY DATA: 11/09/16 05:53 IMAGING: CT of the abdomen and pelvis done on 11/01 revealed a 2.0 cm cyst on the right kidney, several small stable hepatic cysts, left colonic diverticulosis with mild pericolonic fat streaking suggestive of acute diverticulitis. No abscess or free air. Chest x-ray done on 11/01 did not reveal any acute disease. Head CT on 11/04 did not show any acute findings, revealed atrophy and small vessel age related changes ASSESSMENT AND PLAN: Mr. Guevara is an 86-year-old man with past medical history significant for atrial fibrillation, hypertension, GERD, coronary artery disease status post stenting, dyslipidemia, and sciatica who was admitted into the hospital with acute diverticulitis also found to have hyponatremia. 1. Hyponatremia. His GI symptoms likely triggered an inappropriate secretion of ADH. GI symptoms have resolved and sodium levels have normalized. He is no longer on sodium chloride tables and electrolytes have remained stable. 2. Altered mentation. Sodium levels have normalized, infection has been treated and his Requip was discontinued. His mentation is back to baseline. Head CT was negative. 3. Acute diverticulitis. He is currently on Augmentin. GI symptoms have resolved. 4. Hypertension. Blood pressure is stable. He remains on Norvasc and Diovan. DISPOSITION: Electrolytes and renal function and stable. Nephrology will be signing off on his care. Please do not hesitate to contact us should any other acute issues arise. GME ATTESTATION GME ATTESTATION My preceptor for this patient encounter was physically present in the building during the encounter and was fully available. As needed, all aspects of the patient interview, examination, medical decision making process, and medical care plan development were reviewed and approved by the preceptor. Preceptor is aware and concurs with the plan as stated in the body of this note and will attest to such by his/her cosignature. GLORIA SHAFFER DO Nov 09, 2016 11:49
[2016-11-09] MEDS ORDERED: AUGM875T27 PO (12:18)
--- NOTE | 2016-11-10 06:52 | DSES ---
DATE OF ADMISSION: 11/01/2016 DATE OF DISCHARGE: 11/09/2016 PRIMARY CARE PROVIDER: Dr. Gill CONSULTANTS: Dr. Richardson PROCEDURES: None. COMPLICATIONS: None. ADMISSION/DISCHARGE DIAGNOSES: 1. Acute diverticulitis, resolved. 2. Asymptomatic bacteruria. 3. Hyponatremia. 4. Restless leg syndrome. 5. Orthostatic hypotension, resolved. 6. Atrial fibrillation, rate controlled and anticoagulated on Eliquis. 7. Hypertension. 8. Gastroesophageal reflux disease. 9. Dyslipidemia. 10. Coronary artery disease. 11. Deconditioning. HOSPITAL COURSE: Mr. Guevara is an 86-year-old gentleman who presented with abdominal pain located more specifically in the right lower quadrant on 11/01/2016, progressively worse, colicky in nature. He had decreased oral intake secondary to pain associated with eating for several days. Work in the emergency department showed a white count of 8.6, erythrocyte sedimentation rate of 14. Hemoglobin and hematocrit were stable. Creatinine 0.9. Liver function tests unremarkable. Normal lipase. CT of the abdomen and pelvis demonstrated a 2 cm cyst of the right kidney, several small stable hepatic cysts, left colonic diverticulosis with mild pericolonic fat streaking suggesting acute diverticulitis, no abscess or free air. Chest x-ray was unremarkable for any acute processes. However, due to the abdominal pain, nausea and vomiting, he was admitted to the hospital for acute diverticulitis and started on appropriate antibiotics and IV fluid. He did have some hypovolemia and was fluid resuscitated. Dr. Richardson was consulted from nephrology regarding the hyponatremia. He briefly had some altered mentation with negative head CT. This all resolved as well and he gradually improved. He did require physical therapy. Patient and Family Services was involved as well as the patient's family and arrangements were made for him to be discharged to [facility] for residential care/alternative living arrangement. On the date of discharge, he was back to his baseline, feeling well. No further issues. Please refer to the history and physical, labs and diagnostics for his intake records. Progress note today was written regarding physical exam and he was felt to be appropriate for discharge. DISCHARGE CONDITION: Good. DISPOSITION: Discharge to [facility]. DISCHARGE MEDICATIONS: - Augmentin 875 mg twice a day for 7 more days to finish out treatment for his diverticulitis - Tylenol #3 one every 6 hours as needed - Norvasc 5 mg daily - Eliquis 5 mg twice a day - Lipitor 20 mg daily - Plavix 75 mg daily - pantoprazole 40 mg twice a day - timolol one drop twice a day - valsartan 160 mg daily DISCHARGE INSTRUCTIONS: Discharge to [facility]. Follow up with regular primary care provider in a week. Activity as tolerated. Regular diet. Return to the emergency department if symptoms worsen or progress. The discharge took approximately 35 minutes.
[2016-11-10] MEDS ORDERED: PANTOPRAZOLE 40MG TAB (PROTONIX) PO SCH (09:00)
== END 2016-11-09 15:13 | disposition home health service (06) | DRG 392 ==
LOC: M ED 09:50 → M ED INP 15:38 → M MSPAV 17:44
PROVIDERS: ADMIT Internal Medicine; ATTEND Hospitalist
DX: K57.32 Diverticulitis of large intestine without perforation or abscess without bleeding (principal); E22.2 Syndrome of inappropriate secretion of antidiuretic hormone; I48.91 Unspecified atrial fibrillation; I10 Essential (primary) hypertension; K21.9 Gastro-esophageal reflux disease without esophagitis; I25.10 Atherosclerotic heart disease of native coronary artery without angina pectoris; E87.6 Hypokalemia; E86.0 Dehydration; G25.81 Restless legs syndrome; M54.30 Sciatica, unspecified side; E78.5 Hyperlipidemia, unspecified; Z95.5 Presence of coronary angioplasty implant and graft; Z79.01 Long term (current) use of anticoagulants; Z79.02 Long term (current) use of antithrombotics/antiplatelets; Z87.891 Personal history of nicotine dependence; I95.1 Orthostatic hypotension; T42.8X5A Adverse effect of antiparkinsonism drugs and other central muscle-tone depressants, initial encounter; R41.82 Altered mental status, unspecified

== ENCOUNTER → 2016-11-21 | Outpatient (REF) | payer MEDICARE ==
[~2016-11-21] MED LIST changes: +ACET30TAB PO; +AMLO5TAB2 PO; +ATOR1TAB21 PO; +AUGM875T27 PO; +ELIQ5TAB PO; +PANT40TA2 PO; +PLAV75TA38 PO; +TIMO5OPD OU; +VALS1TAB47 PO
[2016-11-21 14:35] LABS: ANION GAP 8 MEQ/L (8-16); BLOOD UREA NITROGEN 11 MG/DL (7-18); CALCIUM LEVEL 8.5 MG/DL (8.8-10.2); CARBON DIOXIDE LEVEL 28 MEQ/L (21-32); CHLORIDE LEVEL 100 MEQ/L (98-107); CREATININE FOR GFR 0.82 MG/DL (0.70-1.30); GLOMERULAR FILTRATION RATE > 60.0 (>35); GLUCOSE, FASTING 102 MG/DL (83-110); POTASSIUM SERUM 3.8 MEQ/L (3.5-5.1); SODIUM LEVEL 136 MEQ/L (136-145)
== END | disposition home or self-care (01) ==
LOC: M LABDRAW1 13:59
PROVIDERS: ATTEND Family Medicine
DX: E87.1 Hypo-osmolality and hyponatremia (principal)

== ENCOUNTER 2016-11-23 10:18 | Emergency (ER) | payer MEDICARE ==
[2016-11-23 10:53] LABS: BASO % 0.2 % (0.0-1.0); EOS # 0.1 K/mm3 (0.0-0.50); EOS % 2.2 % (0.0-3.0); LARGE UNSTAINED CELL # 0.1 K/mm3 (0.0-0.4); LARGE UNSTAINED CELL % 1.2 % (0.0-4.0); LYMPH # 1.3 K/mm3 (1.5-4.5); LYMPH % 21.1 % (24.0-44.0); MEAN CORPUSCULAR HEMOGLOBIN 30.8 pg (27.0-33.0); MEAN CORPUSCULAR HGB CONC 34.9 g/dl (32.0-36.5); MEAN CORPUSCULAR VOLUME 88.1 fl (80.0-96.0); MONO # 0.4 K/mm3 (0.0-0.8); MONO % 6.3 % (0.0-5.0); NEUTROPHILS # 3.9 K/mm3 (1.8-7.7); PLATELET COUNT, AUTOMATED 204 k/mm3 (150-450); RED CELL DISTRIBUTION WIDTH 13.2 % (11.5-14.5); WHITE BLOOD COUNT 5.6 K/mm3 (4.0-10.0)
[2016-11-23 11:20] LABS: ANION GAP 8 MEQ/L (8-16); BLOOD UREA NITROGEN 11 MG/DL (7-18); CARBON DIOXIDE LEVEL 27 MEQ/L (21-32); CHLORIDE LEVEL 98 MEQ/L (98-107); CREATININE FOR GFR 0.92 MG/DL (0.70-1.30); GLOMERULAR FILTRATION RATE > 60.0 (>35); GLUCOSE, FASTING 114 MG/DL (83-110); POTASSIUM SERUM 4.3 MEQ/L (3.5-5.1); SODIUM LEVEL 133 MEQ/L (136-145)
--- NOTE | 2016-11-23 11:31 | REP ---
Chest one-view HISTORY: Chest pain Comparison: 11/01/2016 The lungs are clear. The heart is normal in size. The pulmonary vasculature is normal in appearance. Impression: No acute disease. Signed by Yasir Calderon MD 11/23/2016 11:22 A
[2016-11-23] MEDS ORDERED: NITROGLYCERIN 0.4 MG SUBL TABLET As Ordered ONE (11:51)
[2016-11-23] MEDS ORDERED: ASPIRIN 81 MG CHEW TABLET As Ordered ONE (11:51)
[2016-11-23] MEDS ORDERED: ISOVUE-370 76% 100ML VIAL (Q9967) As Ordered ONE (11:54)
[2016-11-23 12:09] LABS: ALBUMIN 3.4 GM/DL (3.2-5.2); ALBUMIN/GLOBULIN RATIO 1.26 (1.00-1.93); ALKALINE PHOSPHATASE 75 U/L (45-117); ALT/SGPT 19 U/L (12-78); AST/SGOT 13 U/L (15-37); BILIRUBIN,DIRECT 0.2 MG/DL (0.0-0.2); BILIRUBIN,TOTAL 0.7 MG/DL (0.2-1.0); TOTAL PROTEIN 6.1 GM/DL (6.4-8.2)
--- NOTE | 2016-11-23 12:27 | ECGEPIP ---
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
--- NOTE | 2016-11-23 13:01 | REP ---
Clinical: Acute chest pain and shortness of breath. Technique: Axial contrast enhanced images from the thoracic inlet to the upper abdomen using 100 ml Isovue 370 intravenous contrast material with coronal and sagittal re-formations. Findings: Satisfactory enhancement of the pulmonary vasculature is achieved and no filling defects are identified to suggest pulmonary embolus. Bibasilar fibroatelectatic changes (right greater than left) noted. No significant consolidation, effusion, or pneumothorax. Atherosclerotic changes to the thoracic aorta and coronary arteries noted without cardiomegaly or pericardial effusion. No adenopathy. Impression: No evidence for pulmonary embolus. Chronic-appearing bibasilar fibroatelectatic changes. Signed by Yousif Burt MD 11/23/2016 12:53 P
[2016-11-23] MEDS ORDERED: ONDANSETRON 4MG/2ML VIAL (J2405) As Ordered ONE (14:32)
--- NOTE | 2016-11-23 18:25 | ECGEPIP ---
Stationary ECG Study 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
--- NOTE | 2016-11-23 19:01 | EDDOCDS ---
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 mlb1 Aspirin was not taken prior to arrival. Adult Sepsis Screening: The patient does not have new or worsening altered mentation. Patient's respiratory rate is less than 22. Systolic blood pressure is greater than 100. Patient has a qSOFA score of 0- Negative Sepsis Screen. Suicide/Homicide risk assessment- the patient denies having any suicidal and/or homicidal ideations and does not present with any other emotional, behavioral or mental health complaints. Status: Patient is not a automotive service porter or dependent. Transition of care: patient was not received from another setting of care. 10:25 Acuity: ELIER Level 2 mlb1 10:25 Method Of Arrival: Walkin/Carried/Asstd mlb1 Triage Assessment: 10:31 General: Appears in no apparent distress, Behavior is anxious, appropriate for age, mlb1 cooperative. Pain: Location: mid-sternal area Pain currently is 5 out of 10 on a pain scale. Historical: - Allergies: No known drug Allergies; - Home Meds: 1. tamsulosin 0.4 mg oral cp24 1 cap once daily 2. amlodipine 5 mg oral tab 1 tab once daily 3. tizanidine 4 mg oral tab nightly 4. atorvastatin 20 mg oral tab 1 tab once daily 5. pantoprazole 40 mg oral TbEC 1 tab 2 times per day 6. elequis 5mg twice a day 7. Plavix 75 mg Oral tab 1 tab once daily 8. valsartan 320 mg oral tab 0.5 tab once daily 9. timolol maleate 0.5 % Opht drpd 1 drop 2 times per day 10. amoxicillin-pot clavulanate 875-125 mg Oral tab 1 tab every 12 hours - PMHx: A-fib; BPH; CAD; cardiac stent; GERD; Hypercholesterolemia; Hypertension; Sciatica; - PSHx: Cardiac stents; - Social history: Smoking status: Patient states former smoker of tobacco. No barriers to communication noted, The patient speaks fluent [place] Citizen, Speaks appropriately for age. - Family history: Not pertinent. - : The pt / caregiver states he / she is on anticoagulants: Plavix. Home medication list is obtained from the patient. - Exposure Risk Screening:: None identified. Screenin:30 Screening information is obtained from the patient. Assistance ADL's: requires no jo3 assistance with activities of daily living. Abuse/DV Screen: The patient / caregiver reports he/she is: not in a situation that causes fear, pain or injury. Nutritional screening: No deficits noted. Advance Directives:. home support is adequate. 18:45 Fall risk: No risks identified. jo3 Assessment: 10:30 General: Appears in no apparent distress, comfortable, Behavior is appropriate for age, jo3 cooperative, pleasant. Neurological: Level of Consciousness is awake, alert, Oriented to person, place, time. Neurological: Reports Dizziness upon standing prior to arrival. Pt states he was doing physical therapy and stood up and became dizzy and nauseated and developed chest pain. Was given orange juice at PT and then transported here. FSBS here 112 . Cardiovascular: Rhythm is Chest pain is described as mild, is located in mid sternal Chest pain began 1 hour ago. Respiratory: Airway is patent Respiratory effort is even, unlabored. GI: Reports nausea. Derm: Skin is pink, warm & dry. 11:34 Reassessment: Patient appears in no apparent distress at this time. No significant jo3 changes noted at this time. Awaiting results at this time. Family at bedside. Aware of plan of care . 12:21 Reassessment: Pt given 1 SL nitro and stated that his pain was increased to 7/10 and jo3 SBP then decreased to 85. No further nitro to be given. BP has immediate rebound over 100 systolic. Pt maintains that pain is 7/10. Provider is aware . 12:57 Reassessment: Patient appears in no apparent distress at this time. Patient states jo3 feeling better. Patient states symptoms have improved. Pt reports that pain has decreased to 2/10. CT angio completed at this time. returned to room. Awaiting results. Aware of plan of care . 14:45 General: Appears in no apparent distress, comfortable, Behavior is appropriate for age, jo3 cooperative, pleasant. General: Pt reports anorexia and some nausea. Zofran administered and fluid challenge given. Lunch tray ordered at this time . Neurological: Level of Consciousness is awake, alert, Oriented to person, place, time. Respiratory: Airway is patent Respiratory effort is even, unlabored. Derm: Skin is pink, warm & dry. 15:25 Reassessment: Patient appears in no apparent distress at this time. Patient states jo3 feeling better. Patient states symptoms have improved. Resting on stretcher following lunch. Ate turkey sandwich and some soup. Denies nausea. Awaiting cardiac lab redraw at 1630. Aware of plan of care . 16:40 General: Appears in no apparent distress, comfortable, Behavior is appropriate for age, jo3 cooperative. Neurological: Level of Consciousness is awake, alert, Oriented to person, place, time. Cardiovascular: Chest pain is denied. Respiratory: Airway is patent Respiratory effort is even, unlabored. Derm: Skin is pink, warm & dry. 17:40 Reassessment: Patient appears in no apparent distress at this time. Patient denies pain jo3 at this time. Patient states feeling better. Family at bedside. awaiting disposition at this time. Aware of plan of care . 18:45 General: Appears in no apparent distress, comfortable, Behavior is appropriate for age, jo3 cooperative. Neurological: Level of Consciousness is awake, alert. Cardiovascular: Rhythm is regular. Respiratory: Airway is patent Respiratory effort is even, unlabored. Derm: Skin is pink, warm & dry. Vital Signs: 10:20 BP 144 / 76 LA Sitting (auto/reg); Pulse 61; Resp 18; Temp 97.0(O); Pulse Ox 100% on jrd R/A; Weight 83.91 kg (R); Height 6 ft. 1 in. (185.42 cm) (R); Pain 8/10; 10:51 BP 137 / 68 (auto/); jo3 10:51 Pulse 56 MON; Pulse Ox 100% ; jo3 11:00 BP 125 / 69 (auto/); jo3 11:01 Pulse 52 MON; Pulse Ox 100% ; jo3 11:15 BP 138 / 69 (auto/); jo3 11:15 Pulse 56 MON; Pulse Ox 100% ; jo3 11:30 BP 126 / 63 (auto/); jo3 11:30 Pulse 52 MON; Pulse Ox 99% ; jo3 11:44 Pulse 56 MON; Pulse Ox 100% ; jo3 11:45 BP 160 / 69 (auto/); jo3 11:59 Pulse 58 MON; Pulse Ox 97% ; jo3 12:00 BP 85 / 50 (auto/); jo3 12:04 BP 100 / 57 (auto/); jo3 12:04 Pulse 60 MON; Pulse Ox 93% ; jo3 12:05 BP 106 / 59 (auto/); jo3 12:05 Pulse 60 MON; Pulse Ox 96% ; jo3 12:15 BP 106 / 60 (auto/); jo3 12:15 Pulse 56 MON; Pulse Ox 97% ; jo3 12:30 BP 127 / 68 (auto/); jo3 12:30 Pulse 54 MON; Pulse Ox 98% ; jo3 12:49 BP 179 / 77 (auto/); jo3 12:51 Pulse 78 MON; Pulse Ox 97% ; jo3 13:00 BP 127 / 69 (auto/); jo3 13:00 Pulse 58 MON; Pulse Ox 97% ; jo3 13:15 Pulse 58 MON; Pulse Ox 98% ; jo3 13:15 BP 145 / 76 Sitting (auto/); Pulse 58; jo3 13:18 BP 101 / 58 Standing (auto/); Pulse 60; jo3 13:20 Pulse 60 MON; Pulse Ox 97% ; jo3 18:21 BP 157 / 82; Pulse 57; Resp 17; Temp 98.0(O); Pulse Ox 97% on R/A; lr2 10:20 Body Mass Index 24.41 (83.91 kg, 185.42 cm) [facility] Vitals: 10:20 Log In Time: November 23, 2016 at 10:20. jrd 10:20 RN notified that patient meets Red Flag criteria. jrd ED Course: 10:19 Patient visited by Esdras Simon PCA. jrd 10:19 Patient moved to Waiting jrd 10:20 Patient moved to 15 mlb1 10:20 Patient moved to Waiting jrd 10:21 Patient visited by Esdras Simon PCA. jrd 10:22 Patient visited by Esdras Simon PCA. jrd 10:25 Patient visited by Shashi Galdamez RN. mlb1 10:25 Patient moved to 15 mlb1 10:26 Triage Initiated mlb1 10:30 The patient / caregiver is instructed regarding the plan of care and ED course. Cardiac jo3 monitor on. Pulse ox on. NIBP on. 10:32 Patient visited by Shashi Galdamez RN. mlb1 10:34 EKG done. (by ED staff). Reviewed by Terri Bowles MD. jml1 10:43 Basic Metabolic Profile Sent. jo3 10:43 CBC with Diff Sent. jo3 10:43 Cardiac Injury Profile Sent. jo3 10:43 Troponin Sent. jo3 10:46 Inserted peripheral IV: 18gauge IV in right forearm and blood collected. Patient ml6 tolerated the procedure well. 11:38 Patient visited by Merna Sena RN. jo3 11:38 Terri Bowles MD is Attending Physician. br1 11:47 Patient name changed from Shital\S\\S\Hill\S\ to Shital\S\ \S\Hill. EDMS 11:47 Patient visited by Terri Bowles MD. br1 11:53 [facility] Payment Agreement was scanned into [employer] and attached to record. mm15 12:10 Chest, 1 View Returned. EDMS 12:21 Patient visited by Merna Sena RN. jo3 12:23 Patient visited by Merna Sena RN. jo3 12:47 EKG-ADULT Returned. EDMS 12:58 Patient visited by Merna Sena RN. jo3 13:34 CT Chest Angio R/O PE Returned. EDMS 14:19 Patient visited by Merna Sena RN. jo3 14:22 Patient visited by Terri Bowles MD. br1 14:46 Patient visited by Merna Sena RN. jo3 15:12 Patient visited by Merna Sena RN. jo3 16:14 Patient visited by Arcadio Rodriguez. jml1 16:31 Patient visited by Arcadio Rodriguez. jml1 16:31 EKG done. (by ED staff). Reviewed by Terri Bowles MD. jml1 17:52 Patient visited by Merna Sena RN. jo3 18:29 Patient visited by Merna Sena RN. jo3 18:36 Asad Gill is Referral Physician. br1 18:36 Efrain Bose is Referral Physician. br1 18:45 Discontinued IV lock intact, bleeding controlled, pressure dressing applied, No jo3 redness/swelling at site. No procedures done that require assistance. Administered Medications: 11:56 Drug: NS 0.9% 1000 ml [sodium chloride 0.9 % intravenous solution] Route: IV; Rate: 150 jo3 mL/hr; Site: right forearm; 15:27 Follow up: IV Status: Completed infusion jo3 11:56 Drug: Aspirin 324 mg [aspirin 81 mg chewable tablet (4 tabs)] Route: PO; jo3 11:56 Drug: Nitrostat 0.4 mg [Nitrostat 0.4 mg sublingual tablet (1 tabs)] Route: Sublingual; jo3 12:16 CANCELLED (Other Intervention Used): Nitrostat 0.4 mg Sublingual once jo3 14:35 Drug: Ondansetron 4 mg [ondansetron HCl 2 mg/mL intravenous solution (2 mL)] Route: jo3 IVP; Site: right forearm; 15:24 Follow up: Response: Nausea is resolved jo3 15:24 Drug: NS 0.9% 500 ml [sodium chloride 0.9 % intravenous solution] Route: IV; Rate: jo3 bolus; Site: right forearm; Order Results: Lab Order: Basic Metabolic Profile; SPEC'M 11/23/16 10:39 Test: GLUCOSE, FASTING; Value: 114; Range: 83-110; Abnormal: Above high normal; Units: MG/DL; Status: F Test: BLOOD UREA NITROGEN; Value: 11; Range: 7-18; Units: MG/DL; Status: F Test: CREATININE FOR GFR; Value: 0.92; Range: 0.70-1.30; Units: MG/DL; Status: F Test: GLOMERULAR FILTRATION RATE; Value: > 60.0; Range: >35; Status: F Test: SODIUM LEVEL; Value: 133; Range: 136-145; Abnormal: Below low normal; Units: MEQ/L; Status: F Test: POTASSIUM SERUM; Value: 4.3; Range: 3.5-5.1; Units: MEQ/L; Status: F Test: CHLORIDE LEVEL; Value: 98; Range: 98-107; Units: MEQ/L; Status: F Test: CARBON DIOXIDE LEVEL; Value: 27; Range: 21-32; Units: MEQ/L; Status: F Test: ANION GAP; Value: 8; Range: 8-16; Units: MEQ/L; Status: F Test: CALCIUM LEVEL; Value: 9.0; Range: 8.8-10.2; Units: MG/DL; Status: F Test Note: ; Units are mL/min/1.73 m2 Chronic Kidney Disease Staging per NKF: Stage I & II GFR >=60 Normal to Mildly Decreased Stage III GFR 30-59 Moderately Decreased Stage IV GFR 15-29 Severely Decreased Stage V GFR <15 Very Little GFR Left ESRD GFR <15 on [employer] Lab Order: CBC with Diff; SPEC'M 11/23/16 10:39 Test: WHITE BLOOD COUNT; Value: 5.6; Range: 4.0-10.0; Units: K/mm3; Status: F Test: RED BLOOD COUNT; Value: 4.40; Range: 4.30-6.10; Units: M/mm3; Status: F Test: HEMOGLOBIN; Value: 13.6; Range: 14.0-18.0; Abnormal: Below low normal; Units: g/dl; Status: F Test: HEMATOCRIT; Value: 38.8; Range: 42.0-52.0; Abnormal: Below low normal; Units: %; Status: F Test: MEAN CORPUSCULAR VOLUME; Value: 88.1; Range: 80.0-96.0; Units: fl; Status: F Test: MEAN CORPUSCULAR HEMOGLOBIN; Value: 30.8; Range: 27.0-33.0; Units: pg; Status: F Test: MEAN CORPUSCULAR HGB CONC; Value: 34.9; Range: 32.0-36.5; Units: g/dl; Status: F Test: RED CELL DISTRIBUTION WIDTH; Value: 13.2; Range: 11.5-14.5; Units: %; Status: F Test: PLATELET COUNT, AUTOMATED; Value: 204; Range: 150-450; Units: k/mm3; Status: F Test: NEUTROPHILS %; Value: 69.0; Range: 36.0-66.0; Abnormal: Above high normal; Units: %; Status: F Test: LYMPH %; Value: 21.1; Range: 24.0-44.0; Abnormal: Below low normal; Units: %; Status: F Test: MONO %; Value: 6.3; Range: 0.0-5.0; Abnormal: Above high normal; Units: %; Status: F Test: EOS %; Value: 2.2; Range: 0.0-3.0; Units: %; Status: F Test: BASO %; Value: 0.2; Range: 0.0-1.0; Units: %; Status: F Test: LARGE UNSTAINED CELL %; Value: 1.2; Range: 0.0-4.0; Units: %; Status: F Test: NEUTROPHILS #; Value: 3.9; Range: 1.8-7.7; Units: K/mm3; Status: F Test: LYMPH #; Value: 1.3; Range: 1.5-4.5; Abnormal: Below low normal; Units: K/mm3; Status: F Test: MONO #; Value: 0.4; Range: 0.0-0.8; Units: K/mm3; Status: F Test: EOS #; Value: 0.1; Range: 0.0-0.50; Units: K/mm3; Status: F Test: BASO #; Value: 0.0; Range: 0.0-0.2; Units: K/mm3; Status: F Test: LARGE UNSTAINED CELL #; Value: 0.1; Range: 0.0-0.4; Units: K/mm3; Status: F Lab Order: Cardiac Injury Profile; SPEC' 11/23/16 10:39 Test: CPK CREATINE PHOSPHOKINASE; Value: 75; Range: 39-308; Units: U/L; Status: F Test: CK-MB VALUE MASS; Value: 2.3; Range: 0.0-3.6; Units: NG/ML; Status: F Test: MB/CK RELATIVE INDEX; Value: 3.06; Range: < OR =4; Status: F Test Note: ; DIAGNOSIS CRITERIA MMB ng/ml Relative Index (RI) NON-AMI < or = 5 N/A CA ZONE > 5 < or = 4 AMI > 5 > 4 Lab Order: Troponin; SPEC'M 11/23/16 10:39 Test: TROPONIN I; Value: < 0.02; Range: < 0.10; Units: NG/ML; Status: F Test Note: ; Troponin I Reference Interval for [employer] LOCI: 99th Percentile= 0.00-0.045 ng/ml Risk Stratification: <= 0.10 ng/ml Decreased Risk for Adverse Clinical Events. 0.10-1.50 ng/ml Increased Risk for Adverse Clinical Events. Evaluation of additional criterion and/or repeat testing in 2-6 hours is suggested to rule out myocardial damage. >= 1.50 ng/ml Indicative of Myocardial Injury. Lab Order: Fingerstick Blood Sugar; [facility] 11/23/16 10:54 Test: BEDSIDE GLUCOSE; Value: 112; Range: 83-110; Abnormal: Above high normal; Units: MG/DL; Status: F Lab Order: LIPASE; [facility] 11/23/16 10:39 Test: LIPASE; Value: 183; Range: 73-393; Units: U/L; Status: F Lab Order: LIVER PROFILE; [facility] 11/23/16 10:39 Test: AST/SGOT; Value: 13; Range: 15-37; Abnormal: Below low normal; Units: U/L; Status: F Test: ALT/SGPT; Value: 19; Range: 12-78; Units: U/L; Status: F Test: ALKALINE PHOSPHATASE; Value: 75; Range: 45-117; Units: U/L; Status: F Test: BILIRUBIN,TOTAL; Value: 0.7; Range: 0.2-1.0; Units: MG/DL; Status: F Test: BILIRUBIN,DIRECT; Value: 0.2; Range: 0.0-0.2; Units: MG/DL; Status: F Test: TOTAL PROTEIN; Value: 6.1; Range: 6.4-8.2; Abnormal: Below low normal; Units: GM/DL; Status: F Test: ALBUMIN; Value: 3.4; Range: 3.2-5.2; Units: GM/DL; Status: F Test: ALBUMIN/GLOBULIN RATIO; Value: 1.26; Range: 1.00-1.93; Status: F Lab Order: CARDIAC MARKER PANEL; [facility] 11/23/16 16:29 Test: CPK CREATINE PHOSPHOKINASE; Value: 85; Range: 39-308; Units: U/L; Status: F Test: CK-MB VALUE MASS; Value: 1.7; Range: 0.0-3.6; Units: NG/ML; Status: F Test: MB/CK RELATIVE INDEX; Value: 2.00; Range: < OR =4; Status: F Test: TROPONIN I; Value: < 0.02; Range: < 0.10; Units: NG/ML; Status: F Test Note: ; DIAGNOSIS CRITERIA MMB ng/ml Relative Index (RI) NON-AMI < or = 5 N/A CA ZONE > 5 < or = 4 AMI > 5 > 4 Radiology Order: EKG-ADULT Test: EKG-ADULT REASON FOR EXAMINATION: Chest Pain; Stationary ECG Study; [facility] - ED; ; Test Date: 2016-11-23; Pat Name: SHITAL DOAN Department:; Room: -; Gender: M 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; : 1930 Requested By: TERRI Riddle; Order Number: [id number] Reading MD: Tomas Del Toro; Measurements; Intervals [place]; Rate: 55 P: 100; NV: 192 QRS: -27; QRSD: 104 T: -9; QT: 392; QTc: 376; Interpretive Statements; SINUS BRADYCARDIA; BORDERLINE LEFT AXIS DEVIATION; LOW QRS VOLTAGE IN PRECORDIAL LEADS; PATTERN CONSISTENT WITH PULMONARY DISEASE; MINIMAL ST DEPRESSION; SIMILAR TO 06/24/16; Electronically Signed On 11-23-2016 12:27:11 EST by Tomas Del Toro; Radiology Order: Chest, 1 View Test: Chest, 1 View REASON FOR EXAMINATION: Chest Pain; Chest one-view; ; HISTORY: Chest pain; ; Comparison: 11/01/2016; ; The lungs are clear. The heart is normal in size. The pulmonary vasculature is; normal in appearance.; ; Impression: No acute disease.; ; ; Signed by; Shital Calderon MD 11/23/2016 11:22 A; Radiology Order: CT Chest Angio R/O PE Test: CT Chest Angio R/O PE REASON FOR EXAMINATION: Chest Pain;Shortness of Breath; Clinical: Acute chest pain and shortness of breath.; ; Technique: Axial contrast enhanced images from the thoracic inlet to the upper; abdomen using 100 ml Isovue 370 intravenous contrast material with coronal and; sagittal re-formations.; ; Findings: Satisfactory enhancement of the pulmonary vasculature is achieved and; no filling defects are identified to suggest pulmonary embolus. Bibasilar; fibroatelectatic changes (right greater than left) noted. No significant; consolidation, effusion, or pneumothorax. Atherosclerotic changes to the; thoracic aorta and coronary arteries noted without cardiomegaly or pericardial; effusion. No adenopathy.; ; ; ; Impression:; No evidence for pulmonary embolus.; Chronic-appearing bibasilar fibroatelectatic changes.; ; ; Signed by; Yousif Burt MD 11/23/2016 12:53 P; Outcome: 18:36 Discharge ordered by Provider. br1 18:45 Discharge Assessment: Patient awake, alert and oriented x 3. No cognitive and/or jo3 functional deficits noted. Patient verbalized understanding of disposition instructions. patient administered narcotics - no. The following High Risk Discharge criteria are identified: None. Discharged to home ambulatory, with family. Condition: stable Condition: improved. Discharge instructions given to patient, Instructed on discharge instructions, follow up and referral plans. medication usage, Demonstrated understanding of instructions, medications, Pt was receptive of discharge instructions/ teaching. Prescriptions given X 1. CT Study completed. Property sent home with patient. 19:00 Patient left the ED. jo3 Signatures: Dispatcher [employer] EDMS Shashi Galdamez RN RN mlb1 Merna SenaRN RN jo3 Terri Bowles MD MD br1 Rex Emmanuel, SHELLY RN ml6 Arcadio Rodriguez jml1 Mikayla Reed mm15 Esdras Simon, CASIE AIR CHIEF MARSHAL d Irma Velez lr2 Corrections: (The following items were deleted from the chart) 15:12 13:15 BP 145 / 76 Auto; jo3 jo3 MTDD
--- NOTE | 2016-11-23 19:01 | EDDOCDS ---
Physician Documentation [facility] Name: Yasir Guevara Age: 86 yrs Sex: Male : 1930 Arrival Date: 11/23/2016 Time: 10:18 Bed 15 Private MD: Disposition: 11/23/16 18:36 Discharged to Home/Self Care. Impression: Chest pain, unspecified, Nausea. - Condition is Stable. - Discharge Instructions: Nonspecific Chest Pain, Nausea, Adult. - Prescriptions for ZOFRAN ODT 4 mg - dissolve 1 tablet by ORAL route 4 times per day As needed do not chew, do not swallow whole; 10 tablet. - Medication Reconciliation, Local Pharmacy Hours form. - Follow up: Asad Gill; When: 2 - 3 days; Reason: Recheck today's complaints. Follow up: Efrain Bose; When: 2 - 3 days; Reason: Recheck today's complaints. - Problem is new. - Symptoms have improved. - Notes: You were seen in the ED for chest pain with nausea and dizziness. You were treated and improved with nausea medicine and fluids. Bloodwork along with chest XRay, EKG of the heart, CT scan of the chest and cardiac monitoring showed no other acute findings. We have discussed the case with cardiology as well. As you are feeling better you may return home. You may take Zofran as needed for nausea. Call your primary doctor and Dr. Bose in the morning to discuss the ED visit and arrange follow-up appointments for rechecks in their offices this week. Return to the ED for any return of chest pain, trouble breathing, lightheadedness, loss of consciousness, fever, abdominal pain, or any other concerns. Historical: - Allergies: No known drug Allergies; - Home Meds: 1. tamsulosin 0.4 mg oral cp24 1 cap once daily 2. amlodipine 5 mg oral tab 1 tab once daily 3. tizanidine 4 mg oral tab nightly 4. atorvastatin 20 mg oral tab 1 tab once daily 5. pantoprazole 40 mg oral TbEC 1 tab 2 times per day 6. elequis 5mg twice a day 7. Plavix 75 mg Oral tab 1 tab once daily 8. valsartan 320 mg oral tab 0.5 tab once daily 9. timolol maleate 0.5 % Opht drpd 1 drop 2 times per day 10. amoxicillin-pot clavulanate 875-125 mg Oral tab 1 tab every 12 hours - PMHx: A-fib; BPH; CAD; cardiac stent; GERD; Hypercholesterolemia; Hypertension; Sciatica; - PSHx: Cardiac stents; - Social history: Smoking status: Patient states former smoker of tobacco. No barriers to communication noted, The patient speaks fluent Micronesian, Speaks appropriately for age. - Family history: Not pertinent. - : The pt / caregiver states he / she is on anticoagulants: Plavix. Home medication list is obtained from the patient. - Exposure Risk Screening:: None identified. Vital Signs: 11/23 10:20 BP 144 / 76 LA Sitting (auto/reg); Pulse 61; Resp 18; Temp 97.0(O); Pulse Ox 100% on jrd R/A; Weight 83.91 kg / 184.99 lbs (R); Height 6 ft. 1 in. (185.42 cm) (R); Pain 8/10; 10:51 BP 137 / 68 (auto/); jo3 10:51 Pulse 56 MON; Pulse Ox 100% ; jo3 11:00 BP 125 / 69 (auto/); jo3 11:01 Pulse 52 MON; Pulse Ox 100% ; jo3 11:15 BP 138 / 69 (auto/); jo3 11:15 Pulse 56 MON; Pulse Ox 100% ; jo3 11:30 BP 126 / 63 (auto/); jo3 11:30 Pulse 52 MON; Pulse Ox 99% ; jo3 11:44 Pulse 56 MON; Pulse Ox 100% ; jo3 11:45 BP 160 / 69 (auto/); jo3 11:59 Pulse 58 MON; Pulse Ox 97% ; jo3 12:00 BP 85 / 50 (auto/); jo3 12:04 BP 100 / 57 (auto/); jo3 12:04 Pulse 60 MON; Pulse Ox 93% ; jo3 12:05 BP 106 / 59 (auto/); jo3 12:05 Pulse 60 MON; Pulse Ox 96% ; jo3 12:15 BP 106 / 60 (auto/); jo3 12:15 Pulse 56 MON; Pulse Ox 97% ; jo3 12:30 BP 127 / 68 (auto/); jo3 12:30 Pulse 54 MON; Pulse Ox 98% ; jo3 12:49 BP 179 / 77 (auto/); jo3 12:51 Pulse 78 MON; Pulse Ox 97% ; jo3 13:00 BP 127 / 69 (auto/); jo3 13:00 Pulse 58 MON; Pulse Ox 97% ; jo3 13:15 Pulse 58 MON; Pulse Ox 98% ; jo3 13:15 BP 145 / 76 Sitting (auto/); Pulse 58; jo3 13:18 BP 101 / 58 Standing (auto/); Pulse 60; jo3 13:20 Pulse 60 MON; Pulse Ox 97% ; jo3 18:21 BP 157 / 82; Pulse 57; Resp 17; Temp 98.0(O); Pulse Ox 97% on R/A; lr2 10:20 Body Mass Index 24.41 (83.91 kg, 185.42 cm) jrd MDM: 10:27 Helicopter Officer/Pulse Ox/q 30 min VS ordered. br1 10:27 IV Saline Lock ordered. br1 10:27 Rhythm Strip to chart ordered. br1 10:27 Undress patient appropriately for examination ordered. br1 10:29 Basic Metabolic Profile Ordered. EDMS 10:29 CBC with Diff Ordered. EDMS 10:29 Cardiac Injury Profile Ordered. EDMS 10:29 Troponin Ordered. EDMS 10:29 ECG WITH READING ER PHYS+CARDIAG ordered. EDMS 11:03 Chest, 1 View Ordered. EDMS 11:39 NS 0.9% 1000 ml IV at 150 mL/hr continuous ordered. br1 11:48 Aspirin 324 mg PO once ordered. br1 11:48 Nitrostat 0.4 mg Sublingual once ordered. br1 11:49 Orthostatic VS ordered. br1 11:49 CT Chest Angio R/O PE Ordered. EDMS 11:53 Financial registration complete. mm15 11:53 [facility] Payment Agreement was scanned into [employer] and attached to record. mm15 11:59 LIPASE Ordered. EDMS 11:59 LIVER PROFILE Ordered. EDMS 14:23 Ondansetron 4 mg IVP once ordered. br1 14:23 Fluid Challenge ordered. br1 14:24 Repeat EKG (put time details section) ordered. br1 14:24 Redraw CIP &Troponin (put time in details section) ordered. br1 14:24 Admit to ED Observation status ordered. br1 14:50 REGULAR+DIET ordered. EDMS 14:53 Basic Metabolic Profile Reviewed. br1 14:53 CBC with Diff Reviewed. br1 14:53 Fingerstick Blood Sugar Reviewed. br1 14:53 LIVER PROFILE Reviewed. br1 14:53 Cardiac Injury Profile Reviewed. br1 14:53 Troponin Reviewed. br1 14:53 LIPASE Reviewed. br1 14:53 EKG-ADULT Reviewed. br1 14:53 Chest, 1 View Reviewed. br1 14:53 CT Chest Angio R/O PE Reviewed. br1 15:08 Redraw CIP &Troponin (put time in details section) complete. lbd 15:08 Repeat EKG (put time details section) complete. lbd 15:09 CARDIAC MARKER PANEL Ordered. EDMS 15:10 ECG WITH READING ER PHYS ordered. EDMS 15:23 NS 0.9% 500 ml IV at bolus once ordered. br1 18:23 CARDIAC MARKER PANEL Reviewed. br1 Administered Medications: 11:56 Drug: NS 0.9% 1000 ml [sodium chloride 0.9 % intravenous solution] Route: IV; Rate: 150 jo3 mL/hr; Site: right forearm; 15:27 Follow up: IV Status: Completed infusion jo3 11:56 Drug: Aspirin 324 mg [aspirin 81 mg chewable tablet (4 tabs)] Route: PO; jo3 11:56 Drug: Nitrostat 0.4 mg [Nitrostat 0.4 mg sublingual tablet (1 tabs)] Route: Sublingual; jo3 12:16 CANCELLED (Other Intervention Used): Nitrostat 0.4 mg Sublingual once jo3 14:35 Drug: Ondansetron 4 mg [ondansetron HCl 2 mg/mL intravenous solution (2 mL)] Route: jo3 IVP; Site: right forearm; 15:24 Follow up: Response: Nausea is resolved jo3 15:24 Drug: NS 0.9% 500 ml [sodium chloride 0.9 % intravenous solution] Route: IV; Rate: jo3 bolus; Site: right forearm; Signatures: Dispatcher [employer] EDEvie Cameron, Career Manager Unit lbd Shashi Galdamez RN RN mlb1 Merna Sena RN RN jo3 Brian Bowles MD MD br1 Mikayla Reed mm15 The chart was reviewed and I authenticate all verbal orders and agree with the evaluation and treatment provided.Corrections: (The following items were deleted from the chart) 11:00 10:27 ECG WITH READING ER PHYS+CARDIAG ordered. EDMS EDMS 11:49 LIVER PROFILE+LAB ordered. EDMS EDMS 59 11:49 LIPASE+LAB ordered. EDMS EDMS 12:16 12:03 Nitrostat 0.4 mg Sublingual once ordered. br1 jo3 Attachments: 11:53 [facility] Payment Agreement mm15 MTDD
--- NOTE | 2016-11-25 20:00 | EDDOCDS ---
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 mlb1 Aspirin was not taken prior to arrival. Adult Sepsis Screening: The patient does not have new or worsening altered mentation. Patient's respiratory rate is less than 22. Systolic blood pressure is greater than 100. Patient has a qSOFA score of 0- Negative Sepsis Screen. Suicide/Homicide risk assessment- the patient denies having any suicidal and/or homicidal ideations and does not present with any other emotional, behavioral or mental health complaints. Status: Patient is not a service center representative or dependent. Transition of care: patient was not received from another setting of care. 10:25 Acuity: ELIER Level 2 mlb1 10:25 Method Of Arrival: Walkin/Carried/Asstd mlb1 Triage Assessment: 10:31 General: Appears in no apparent distress, Behavior is anxious, appropriate for age, mlb1 cooperative. Pain: Location: mid-sternal area Pain currently is 5 out of 10 on a pain scale. Historical: - Allergies: No known drug Allergies; - Home Meds: 1. tamsulosin 0.4 mg oral cp24 1 cap once daily 2. amlodipine 5 mg oral tab 1 tab once daily 3. tizanidine 4 mg oral tab nightly 4. atorvastatin 20 mg oral tab 1 tab once daily 5. pantoprazole 40 mg oral TbEC 1 tab 2 times per day 6. elequis 5mg twice a day 7. Plavix 75 mg Oral tab 1 tab once daily 8. valsartan 320 mg oral tab 0.5 tab once daily 9. timolol maleate 0.5 % Opht drpd 1 drop 2 times per day 10. amoxicillin-pot clavulanate 875-125 mg Oral tab 1 tab every 12 hours - PMHx: A-fib; BPH; CAD; cardiac stent; GERD; Hypercholesterolemia; Hypertension; Sciatica; - PSHx: Cardiac stents; - Social history: Smoking status: Patient states former smoker of tobacco. No barriers to communication noted, The patient speaks fluent Mauritanian, Speaks appropriately for age. - Family history: Not pertinent. - : The pt / caregiver states he / she is on anticoagulants: Plavix. Home medication list is obtained from the patient. - Exposure Risk Screening:: None identified. Screenin:30 Screening information is obtained from the patient. Assistance ADL's: requires no jo3 assistance with activities of daily living. Abuse/DV Screen: The patient / caregiver reports he/she is: not in a situation that causes fear, pain or injury. Nutritional screening: No deficits noted. Advance Directives:. home support is adequate. 18:45 Fall risk: No risks identified. jo3 Assessment: 10:30 General: Appears in no apparent distress, comfortable, Behavior is appropriate for age, jo3 cooperative, pleasant. Neurological: Level of Consciousness is awake, alert, Oriented to person, place, time. Neurological: Reports Dizziness upon standing prior to arrival. Pt states he was doing physical therapy and stood up and became dizzy and nauseated and developed chest pain. Was given orange juice at PT and then transported here. FSBS here 112 . Cardiovascular: Rhythm is Chest pain is described as mild, is located in mid sternal Chest pain began 1 hour ago. Respiratory: Airway is patent Respiratory effort is even, unlabored. GI: Reports nausea. Derm: Skin is pink, warm & dry. 11:34 Reassessment: Patient appears in no apparent distress at this time. No significant jo3 changes noted at this time. Awaiting results at this time. Family at bedside. Aware of plan of care . 12:21 Reassessment: Pt given 1 SL nitro and stated that his pain was increased to 7/10 and jo3 SBP then decreased to 85. No further nitro to be given. BP has immediate rebound over 100 systolic. Pt maintains that pain is 7/10. Provider is aware . 12:57 Reassessment: Patient appears in no apparent distress at this time. Patient states jo3 feeling better. Patient states symptoms have improved. Pt reports that pain has decreased to 2/10. CT angio completed at this time. returned to room. Awaiting results. Aware of plan of care . 14:45 General: Appears in no apparent distress, comfortable, Behavior is appropriate for age, jo3 cooperative, pleasant. General: Pt reports anorexia and some nausea. Zofran administered and fluid challenge given. Lunch tray ordered at this time . Neurological: Level of Consciousness is awake, alert, Oriented to person, place, time. Respiratory: Airway is patent Respiratory effort is even, unlabored. Derm: Skin is pink, warm & dry. 15:25 Reassessment: Patient appears in no apparent distress at this time. Patient states jo3 feeling better. Patient states symptoms have improved. Resting on stretcher following lunch. Ate turkey sandwich and some soup. Denies nausea. Awaiting cardiac lab redraw at 1630. Aware of plan of care . 16:40 General: Appears in no apparent distress, comfortable, Behavior is appropriate for age, jo3 cooperative. Neurological: Level of Consciousness is awake, alert, Oriented to person, place, time. Cardiovascular: Chest pain is denied. Respiratory: Airway is patent Respiratory effort is even, unlabored. Derm: Skin is pink, warm & dry. 17:40 Reassessment: Patient appears in no apparent distress at this time. Patient denies pain jo3 at this time. Patient states feeling better. Family at bedside. awaiting disposition at this time. Aware of plan of care . 18:45 General: Appears in no apparent distress, comfortable, Behavior is appropriate for age, jo3 cooperative. Neurological: Level of Consciousness is awake, alert. Cardiovascular: Rhythm is regular. Respiratory: Airway is patent Respiratory effort is even, unlabored. Derm: Skin is pink, warm & dry. Vital Signs: 10:20 BP 144 / 76 LA Sitting (auto/reg); Pulse 61; Resp 18; Temp 97.0(O); Pulse Ox 100% on jrd R/A; Weight 83.91 kg (R); Height 6 ft. 1 in. (185.42 cm) (R); Pain 8/10; 10:51 BP 137 / 68 (auto/); jo3 10:51 Pulse 56 MON; Pulse Ox 100% ; jo3 11:00 BP 125 / 69 (auto/); jo3 11:01 Pulse 52 MON; Pulse Ox 100% ; jo3 11:15 BP 138 / 69 (auto/); jo3 11:15 Pulse 56 MON; Pulse Ox 100% ; jo3 11:30 BP 126 / 63 (auto/); jo3 11:30 Pulse 52 MON; Pulse Ox 99% ; jo3 11:44 Pulse 56 MON; Pulse Ox 100% ; jo3 11:45 BP 160 / 69 (auto/); jo3 11:59 Pulse 58 MON; Pulse Ox 97% ; jo3 12:00 BP 85 / 50 (auto/); jo3 12:04 BP 100 / 57 (auto/); jo3 12:04 Pulse 60 MON; Pulse Ox 93% ; jo3 12:05 BP 106 / 59 (auto/); jo3 12:05 Pulse 60 MON; Pulse Ox 96% ; jo3 12:15 BP 106 / 60 (auto/); jo3 12:15 Pulse 56 MON; Pulse Ox 97% ; jo3 12:30 BP 127 / 68 (auto/); jo3 12:30 Pulse 54 MON; Pulse Ox 98% ; jo3 12:49 BP 179 / 77 (auto/); jo3 12:51 Pulse 78 MON; Pulse Ox 97% ; jo3 13:00 BP 127 / 69 (auto/); jo3 13:00 Pulse 58 MON; Pulse Ox 97% ; jo3 13:15 Pulse 58 MON; Pulse Ox 98% ; jo3 13:15 BP 145 / 76 Sitting (auto/); Pulse 58; jo3 13:18 BP 101 / 58 Standing (auto/); Pulse 60; jo3 13:20 Pulse 60 MON; Pulse Ox 97% ; jo3 18:21 BP 157 / 82; Pulse 57; Resp 17; Temp 98.0(O); Pulse Ox 97% on R/A; lr2 10:20 Body Mass Index 24.41 (83.91 kg, 185.42 cm) [facility] Vitals: 10:20 Log In Time: November 23, 2016 at 10:20. jrd 10:20 RN notified that patient meets Red Flag criteria. jrd ED Course: 10:19 Patient visited by Esdras Simon PCA. jrd 10:19 Patient moved to Waiting jrd 10:20 Patient moved to 15 mlb1 10:20 Patient moved to Waiting jrd 10:21 Patient visited by Esdras Simon PCA. jrd 10:22 Patient visited by Esdras Simon PCA. jrd 10:25 Patient visited by Shashi Galdamez RN. mlb1 10:25 Patient moved to 15 mlb1 10:26 Triage Initiated mlb1 10:30 The patient / caregiver is instructed regarding the plan of care and ED course. Cardiac jo3 monitor on. Pulse ox on. NIBP on. 10:32 Patient visited by Shashi Galdamez RN. mlb1 10:34 EKG done. (by ED staff). Reviewed by Terri Bowles MD. jml1 10:43 Basic Metabolic Profile Sent. jo3 10:43 CBC with Diff Sent. jo3 10:43 Cardiac Injury Profile Sent. jo3 10:43 Troponin Sent. jo3 10:46 Inserted peripheral IV: 18gauge IV in right forearm and blood collected. Patient ml6 tolerated the procedure well. 11:38 Patient visited by Merna Sena RN. jo3 11:38 Terri Bowles MD is Attending Physician. br1 11:47 Patient name changed from Shital\S\\S\Hill\S\ to Shital\S\ \S\Hill. EDMS 11:47 Patient visited by Terri Bowles MD. br1 11:53 [facility] Payment Agreement was scanned into [employer] and attached to record. mm15 12:10 Chest, 1 View Returned. EDMS 12:21 Patient visited by Merna Sena RN. jo3 12:23 Patient visited by Merna Sena RN. jo3 12:47 EKG-ADULT Returned. EDMS 12:58 Patient visited by Merna Sena RN. jo3 13:34 CT Chest Angio R/O PE Returned. EDMS 14:19 Patient visited by Merna Sena RN. jo3 14:22 Patient visited by Terri Bowles MD. br1 14:46 Patient visited by Merna Sena RN. jo3 15:12 Patient visited by Merna Sena RN. jo3 16:14 Patient visited by Arcadio Rodriguez. jml1 16:31 Patient visited by Arcadio Rodriguez. jml1 16:31 EKG done. (by ED staff). Reviewed by Terri Bowles MD. jml1 17:52 Patient visited by Merna Sena RN. jo3 18:29 Patient visited by Merna Sena RN. jo3 18:36 Asad Gill is Referral Physician. br1 18:36 Efrain Bose is Referral Physician. br1 18:45 Discontinued IV lock intact, bleeding controlled, pressure dressing applied, No jo3 redness/swelling at site. No procedures done that require assistance. 19:02 ECG WITH READING ER PHYS Returned. EDMS 11/24 10:35 T-Sheet-- Draft Copy was scanned into [employer] and attached to record. gb 10:35 ECG/EKG was scanned into [email or web address] and attached to record. gb 10:35 Radiology Report was scanned into [email or web address] and attached to record. gb Administered Medications: 11/23 11:56 Drug: NS 0.9% 1000 ml [sodium chloride 0.9 % intravenous solution] Route: IV; Rate: 150 jo3 mL/hr; Site: right forearm; 15:27 Follow up: IV Status: Completed infusion jo3 11:56 Drug: Aspirin 324 mg [aspirin 81 mg chewable tablet (4 tabs)] Route: PO; jo3 11:56 Drug: Nitrostat 0.4 mg [Nitrostat 0.4 mg sublingual tablet (1 tabs)] Route: Sublingual; jo3 12:16 CANCELLED (Other Intervention Used): Nitrostat 0.4 mg Sublingual once jo3 14:35 Drug: Ondansetron 4 mg [ondansetron HCl 2 mg/mL intravenous solution (2 mL)] Route: jo3 IVP; Site: right forearm; 15:24 Follow up: Response: Nausea is resolved jo3 15:24 Drug: NS 0.9% 500 ml [sodium chloride 0.9 % intravenous solution] Route: IV; Rate: jo3 bolus; Site: right forearm; Order Results: Lab Order: Basic Metabolic Profile; [facility] 11/23/16 10:39 Test: GLUCOSE, FASTING; Value: 114; Range: 83-110; Abnormal: Above high normal; Units: MG/DL; Status: F Test: BLOOD UREA NITROGEN; Value: 11; Range: 7-18; Units: MG/DL; Status: F Test: CREATININE FOR GFR; Value: 0.92; Range: 0.70-1.30; Units: MG/DL; Status: F Test: GLOMERULAR FILTRATION RATE; Value: > 60.0; Range: >35; Status: F Test: SODIUM LEVEL; Value: 133; Range: 136-145; Abnormal: Below low normal; Units: MEQ/L; Status: F Test: POTASSIUM SERUM; Value: 4.3; Range: 3.5-5.1; Units: MEQ/L; Status: F Test: CHLORIDE LEVEL; Value: 98; Range: 98-107; Units: MEQ/L; Status: F Test: CARBON DIOXIDE LEVEL; Value: 27; Range: 21-32; Units: MEQ/L; Status: F Test: ANION GAP; Value: 8; Range: 8-16; Units: MEQ/L; Status: F Test: CALCIUM LEVEL; Value: 9.0; Range: 8.8-10.2; Units: MG/DL; Status: F Test Note: ; Units are mL/min/1.73 m2 Chronic Kidney Disease Staging per NKF: Stage I & II GFR >=60 Normal to Mildly Decreased Stage III GFR 30-59 Moderately Decreased Stage IV GFR 15-29 Severely Decreased Stage V GFR <15 Very Little GFR Left ESRD 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 <15 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 Lab Order: CBC with Diff; SPEC'M 11/23/16 10:39 Test: WHITE BLOOD COUNT; Value: 5.6; Range: 4.0-10.0; Units: K/mm3; Status: F Test: RED BLOOD COUNT; Value: 4.40; Range: 4.30-6.10; Units: M/mm3; Status: F Test: HEMOGLOBIN; Value: 13.6; Range: 14.0-18.0; Abnormal: Below low normal; Units: g/dl; Status: F Test: HEMATOCRIT; Value: 38.8; Range: 42.0-52.0; Abnormal: Below low normal; Units: %; Status: F Test: MEAN CORPUSCULAR VOLUME; Value: 88.1; Range: 80.0-96.0; Units: fl; Status: F Test: MEAN CORPUSCULAR HEMOGLOBIN; Value: 30.8; Range: 27.0-33.0; Units: pg; Status: F Test: MEAN CORPUSCULAR HGB CONC; Value: 34.9; Range: 32.0-36.5; Units: g/dl; Status: F Test: RED CELL DISTRIBUTION WIDTH; Value: 13.2; Range: 11.5-14.5; Units: %; Status: F Test: PLATELET COUNT, AUTOMATED; Value: 204; Range: 150-450; Units: k/mm3; Status: F Test: NEUTROPHILS %; Value: 69.0; Range: 36.0-66.0; Abnormal: Above high normal; Units: %; Status: F Test: LYMPH %; Value: 21.1; Range: 24.0-44.0; Abnormal: Below low normal; Units: %; Status: F Test: MONO %; Value: 6.3; Range: 0.0-5.0; Abnormal: Above high normal; Units: %; Status: F Test: EOS %; Value: 2.2; Range: 0.0-3.0; Units: %; Status: F Test: BASO %; Value: 0.2; Range: 0.0-1.0; Units: %; Status: F Test: LARGE UNSTAINED CELL %; Value: 1.2; Range: 0.0-4.0; Units: %; Status: F Test: NEUTROPHILS #; Value: 3.9; Range: 1.8-7.7; Units: K/mm3; Status: F Test: LYMPH #; Value: 1.3; Range: 1.5-4.5; Abnormal: Below low normal; Units: K/mm3; Status: F Test: MONO #; Value: 0.4; Range: 0.0-0.8; Units: K/mm3; Status: F Test: EOS #; Value: 0.1; Range: 0.0-0.50; Units: K/mm3; Status: F Test: BASO #; Value: 0.0; Range: 0.0-0.2; Units: K/mm3; Status: F Test: LARGE UNSTAINED CELL #; Value: 0.1; Range: 0.0-0.4; Units: K/mm3; Status: F Lab Order: Cardiac Injury Profile; SPEC'M 11/23/16 10:39 Test: CPK CREATINE PHOSPHOKINASE; Value: 75; Range: 39-308; Units: U/L; Status: F Test: CK-MB VALUE MASS; Value: 2.3; Range: 0.0-3.6; Units: NG/ML; Status: F Test: MB/CK RELATIVE INDEX; Value: 3.06; Range: < OR =4; Status: F Test Note: ; DIAGNOSIS CRITERIA MMB ng/ml Relative Index (RI) NON-AMI < or = 5 N/A CA ZONE > 5 < or = 4 AMI > 5 > 4 Lab Order: Troponin; [facility] 11/23/16 10:39 Test: TROPONIN I; Value: < 0.02; Range: < 0.10; Units: NG/ML; Status: F Test Note: ; Troponin I Reference Interval for Siemens ResponseTek LOCI: 99th Percentile= 0.00-0.045 ng/ml Risk Stratification: <= 0.10 ng/ml Decreased Risk for Adverse Clinical Events. 0.10-1.50 ng/ml Increased Risk for Adverse Clinical Events. Evaluation of additional criterion and/or repeat testing in 2-6 hours is suggested to rule out myocardial damage. >= 1.50 ng/ml Indicative of Myocardial Injury. Lab Order: Fingerstick Blood Sugar; [facility] 11/23/16 10:54 Test: BEDSIDE GLUCOSE; Value: 112; Range: 83-110; Abnormal: Above high normal; Units: MG/DL; Status: F Lab Order: LIPASE; [facility] 11/23/16 10:39 Test: LIPASE; Value: 183; Range: 73-393; Units: U/L; Status: F Lab Order: LIVER PROFILE; [facility] 11/23/16 10:39 Test: AST/SGOT; Value: 13; Range: 15-37; Abnormal: Below low normal; Units: U/L; Status: F Test: ALT/SGPT; Value: 19; Range: 12-78; Units: U/L; Status: F Test: ALKALINE PHOSPHATASE; Value: 75; Range: 45-117; Units: U/L; Status: F Test: BILIRUBIN,TOTAL; Value: 0.7; Range: 0.2-1.0; Units: MG/DL; Status: F Test: BILIRUBIN,DIRECT; Value: 0.2; Range: 0.0-0.2; Units: MG/DL; Status: F Test: TOTAL PROTEIN; Value: 6.1; Range: 6.4-8.2; Abnormal: Below low normal; Units: GM/DL; Status: F Test: ALBUMIN; Value: 3.4; Range: 3.2-5.2; Units: GM/DL; Status: F Test: ALBUMIN/GLOBULIN RATIO; Value: 1.26; Range: 1.00-1.93; Status: F Lab Order: CARDIAC MARKER PANEL; SPEC'M 11/23/16 16:29 Test: CPK CREATINE PHOSPHOKINASE; Value: 85; Range: 39-308; Units: U/L; Status: F Test: CK-MB VALUE MASS; Value: 1.7; Range: 0.0-3.6; Units: NG/ML; Status: F Test: MB/CK RELATIVE INDEX; Value: 2.00; Range: < OR =4; Status: F Test: TROPONIN I; Value: < 0.02; Range: < 0.10; Units: NG/ML; Status: F Test Note: ; DIAGNOSIS CRITERIA MMB ng/ml Relative Index (RI) NON-AMI < or = 5 N/A CA ZONE > 5 < or = 4 AMI > 5 > 4 Radiology Order: EKG-ADULT Test: EKG-ADULT REASON FOR EXAMINATION: Chest Pain; Stationary ECG Study; [facility] - ED; ; Test Date: 2016-11-23; Pat Name: SHITAL DOAN Department:; Room: -; 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; : 1930 Requested By: TERRI Riddle; Order Number: [id number] Reading MD: Tomas Del Toro; Measurements; Intervals [place]; Rate: 55 P: 100; IN: 192 QRS: -27; QRSD: 104 T: -9; QT: 392; QTc: 376; Interpretive Statements; SINUS BRADYCARDIA; BORDERLINE LEFT AXIS DEVIATION; LOW QRS VOLTAGE IN PRECORDIAL LEADS; PATTERN CONSISTENT WITH PULMONARY DISEASE; MINIMAL ST DEPRESSION; SIMILAR TO 06/24/16; Electronically Signed On 11-23-2016 12:27:11 EST by Tomas Del Toro; Radiology Order: Chest, 1 View Test: Chest, 1 View REASON FOR EXAMINATION: Chest Pain; Chest one-view; ; HISTORY: Chest pain; ; Comparison: 11/01/2016; ; The lungs are clear. The heart is normal in size. The pulmonary vasculature is; normal in appearance.; ; Impression: No acute disease.; ; ; Signed by; Shital Calderon MD 11/23/2016 11:22 A; Radiology Order: CT Chest Angio R/O PE Test: CT Chest Angio R/O PE REASON FOR EXAMINATION: Chest Pain;Shortness of Breath; Clinical: Acute chest pain and shortness of breath.; ; Technique: Axial contrast enhanced images from the thoracic inlet to the upper; abdomen using 100 ml Isovue 370 intravenous contrast material with coronal and; sagittal re-formations.; ; Findings: Satisfactory enhancement of the pulmonary vasculature is achieved and; no filling defects are identified to suggest pulmonary embolus. Bibasilar; fibroatelectatic changes (right greater than left) noted. No significant; consolidation, effusion, or pneumothorax. Atherosclerotic changes to the; thoracic aorta and coronary arteries noted without cardiomegaly or pericardial; effusion. No adenopathy.; ; ; ; Impression:; No evidence for pulmonary embolus.; Chronic-appearing bibasilar fibroatelectatic changes.; ; ; Signed by; Yousif Burt MD 11/23/2016 12:53 P; Radiology Order: ECG WITH READING ER PHYS Test: ECG WITH READING ER PHYS REASON FOR EXAMINATION: CHEST PAIN(REPEAT EKG AT 1625); Stationary ECG Study; [facility] - ED; ; Test Date: 2016-11-23; Pat Name: SHITAL DOAN Department:; Room: -; Gender: Road Maker: JT; : 1930 Requested By: TERRI Riddle; Order Number: [id number] Reading MD: Tomas Del Toro; Measurements; Intervals [place]; Rate: 57 P:; IN: 0 QRS: -20; QRSD: 102 T: 2; QT: 390; QTc: 381; Interpretive Statements; SINUS BRADYCARDIA; LOW QRS VOLTAGE IN PRECORDIAL LEADS; ; Electronically Signed On 11-23-2016 18:24:41 EST by Tomas Del Toro; Outcome: 18:36 Discharge ordered by Provider. br1 18:45 Discharge Assessment: Patient awake, alert and oriented x 3. No cognitive and/or jo3 functional deficits noted. Patient verbalized understanding of disposition instructions. patient administered narcotics - no. The following High Risk Discharge criteria are identified: None. Discharged to home ambulatory, with family. Condition: stable Condition: improved. Discharge instructions given to patient, Instructed on discharge instructions, follow up and referral plans. medication usage, Demonstrated understanding of instructions, medications, Pt was receptive of discharge instructions/ teaching. Prescriptions given X 1. CT Study completed. Property sent home with patient. 19:00 Patient left the ED. jo3 Signatures: Dispatcher [employer] EDStacy Ledezma, Mikel Reg Shashi Haywood RN RN mlb1 Merna SenaRN RN jo3 Terri Bowles MD MD br1 Rex Emmanuel RN RN ml6 Arcadio Rodriguez jml1 Mikayla Reed mm15 Esdras Simon PCA FLORAL MERCHANDISER d Irma Velez2 Corrections: (The following items were deleted from the chart) 15:12 13:15 BP 145 / 76 Auto; jo3 jo3 Chart Complete MTDD
--- NOTE | 2016-11-25 20:00 | EDDOCDS ---
Physician Documentation [facility] Name: Yasir Guevara Age: 86 yrs Sex: Male : 1930 Arrival Date: 11/23/2016 Time: 10:18 Bed 15 Private MD: Disposition: 11/23/16 18:36 Discharged to Home/Self Care. Impression: Chest pain, unspecified, Nausea. - Condition is Stable. - Discharge Instructions: Nonspecific Chest Pain, Nausea, Adult. - Prescriptions for ZOFRAN ODT 4 mg - dissolve 1 tablet by ORAL route 4 times per day As needed do not chew, do not swallow whole; 10 tablet. - Medication Reconciliation, Local Pharmacy Hours form. - Follow up: Asad Gill; When: 2 - 3 days; Reason: Recheck today's complaints. Follow up: Efrain Bose; When: 2 - 3 days; Reason: Recheck today's complaints. - Problem is new. - Symptoms have improved. - Notes: You were seen in the ED for chest pain with nausea and dizziness. You were treated and improved with nausea medicine and fluids. Bloodwork along with chest XRay, EKG of the heart, CT scan of the chest and cardiac monitoring showed no other acute findings. We have discussed the case with cardiology as well. As you are feeling better you may return home. You may take Zofran as needed for nausea. Call your primary doctor and Dr. Bose in the morning to discuss the ED visit and arrange follow-up appointments for rechecks in their offices this week. Return to the ED for any return of chest pain, trouble breathing, lightheadedness, loss of consciousness, fever, abdominal pain, or any other concerns. Historical: - Allergies: No known drug Allergies; - Home Meds: 1. tamsulosin 0.4 mg oral cp24 1 cap once daily 2. amlodipine 5 mg oral tab 1 tab once daily 3. tizanidine 4 mg oral tab nightly 4. atorvastatin 20 mg oral tab 1 tab once daily 5. pantoprazole 40 mg oral TbEC 1 tab 2 times per day 6. elequis 5mg twice a day 7. Plavix 75 mg Oral tab 1 tab once daily 8. valsartan 320 mg oral tab 0.5 tab once daily 9. timolol maleate 0.5 % Opht drpd 1 drop 2 times per day 10. amoxicillin-pot clavulanate 875-125 mg Oral tab 1 tab every 12 hours - PMHx: A-fib; BPH; CAD; cardiac stent; GERD; Hypercholesterolemia; Hypertension; Sciatica; - PSHx: Cardiac stents; - Social history: Smoking status: Patient states former smoker of tobacco. No barriers to communication noted, The patient speaks fluent [place], Speaks appropriately for age. - Family history: Not pertinent. - : The pt / caregiver states he / she is on anticoagulants: Plavix. Home medication list is obtained from the patient. - Exposure Risk Screening:: None identified. Vital Signs: 11/23 10:20 BP 144 / 76 LA Sitting (auto/reg); Pulse 61; Resp 18; Temp 97.0(O); Pulse Ox 100% on jrd R/A; Weight 83.91 kg / 184.99 lbs (R); Height 6 ft. 1 in. (185.42 cm) (R); Pain 8/10; 10:51 BP 137 / 68 (auto/); jo3 10:51 Pulse 56 MON; Pulse Ox 100% ; jo3 11:00 BP 125 / 69 (auto/); jo3 11:01 Pulse 52 MON; Pulse Ox 100% ; jo3 11:15 BP 138 / 69 (auto/); jo3 11:15 Pulse 56 MON; Pulse Ox 100% ; jo3 11:30 BP 126 / 63 (auto/); jo3 11:30 Pulse 52 MON; Pulse Ox 99% ; jo3 11:44 Pulse 56 MON; Pulse Ox 100% ; jo3 11:45 BP 160 / 69 (auto/); jo3 11:59 Pulse 58 MON; Pulse Ox 97% ; jo3 12:00 BP 85 / 50 (auto/); jo3 12:04 BP 100 / 57 (auto/); jo3 12:04 Pulse 60 MON; Pulse Ox 93% ; jo3 12:05 BP 106 / 59 (auto/); jo3 12:05 Pulse 60 MON; Pulse Ox 96% ; jo3 12:15 BP 106 / 60 (auto/); jo3 12:15 Pulse 56 MON; Pulse Ox 97% ; jo3 12:30 BP 127 / 68 (auto/); jo3 12:30 Pulse 54 MON; Pulse Ox 98% ; jo3 12:49 BP 179 / 77 (auto/); jo3 12:51 Pulse 78 MON; Pulse Ox 97% ; jo3 13:00 BP 127 / 69 (auto/); jo3 13:00 Pulse 58 MON; Pulse Ox 97% ; jo3 13:15 Pulse 58 MON; Pulse Ox 98% ; jo3 13:15 BP 145 / 76 Sitting (auto/); Pulse 58; jo3 13:18 BP 101 / 58 Standing (auto/); Pulse 60; jo3 13:20 Pulse 60 MON; Pulse Ox 97% ; jo3 18:21 BP 157 / 82; Pulse 57; Resp 17; Temp 98.0(O); Pulse Ox 97% on R/A; lr2 10:20 Body Mass Index 24.41 (83.91 kg, 185.42 cm) jrd MDM: 10:27 Pocket Marker/Pulse Ox/q 30 min VS ordered. br1 10:27 IV Saline Lock ordered. br1 10:27 Rhythm Strip to chart ordered. br1 10:27 Undress patient appropriately for examination ordered. br1 10:29 Basic Metabolic Profile Ordered. EDMS 10:29 CBC with Diff Ordered. EDMS 10:29 Cardiac Injury Profile Ordered. EDMS 10:29 Troponin Ordered. EDMS 10:29 ECG WITH READING ER PHYS+CARDIAG ordered. EDMS 11:03 Chest, 1 View Ordered. EDMS 11:39 NS 0.9% 1000 ml IV at 150 mL/hr continuous ordered. br1 11:48 Aspirin 324 mg PO once ordered. br1 11:48 Nitrostat 0.4 mg Sublingual once ordered. br1 11:49 Orthostatic VS ordered. br1 11:49 CT Chest Angio R/O PE Ordered. EDMS 11:53 Financial registration complete. mm15 11:53 [facility] Payment Agreement was scanned into [employer] and attached to record. mm15 11:59 LIPASE Ordered. EDMS 11:59 LIVER PROFILE Ordered. EDMS 14:23 Ondansetron 4 mg IVP once ordered. br1 14:23 Fluid Challenge ordered. br1 14:24 Repeat EKG (put time details section) ordered. br1 14:24 Redraw CIP &Troponin (put time in details section) ordered. br1 14:24 Admit to ED Observation status ordered. br1 14:50 REGULAR+DIET ordered. EDMS 14:53 Basic Metabolic Profile Reviewed. br1 14:53 CBC with Diff Reviewed. br1 14:53 Fingerstick Blood Sugar Reviewed. br1 14:53 LIVER PROFILE Reviewed. br1 14:53 Cardiac Injury Profile Reviewed. br1 14:53 Troponin Reviewed. br1 14:53 LIPASE Reviewed. br1 14:53 EKG-ADULT Reviewed. br1 14:53 Chest, 1 View Reviewed. br1 14:53 CT Chest Angio R/O PE Reviewed. br1 15:08 Redraw CIP &Troponin (put time in details section) complete. lbd 15:08 Repeat EKG (put time details section) complete. lbd 15:09 CARDIAC MARKER PANEL Ordered. EDMS 15:10 ECG WITH READING ER PHYS ordered. EDMS 15:23 NS 0.9% 500 ml IV at bolus once ordered. br1 18:23 CARDIAC MARKER PANEL Reviewed. br1 0216 10:35 T-Sheet-- Draft Copy was scanned into [employer] and attached to record. gb 10:35 ECG/EKG was scanned into [employer] and attached to record. gb 10:35 Radiology Report was scanned into [employer] and attached to record. gb Administered Medications: 11/23 11:56 Drug: NS 0.9% 1000 ml [sodium chloride 0.9 % intravenous solution] Route: IV; Rate: 150 jo3 mL/hr; Site: right forearm; 15:27 Follow up: IV Status: Completed infusion jo3 11:56 Drug: Aspirin 324 mg [aspirin 81 mg chewable tablet (4 tabs)] Route: PO; jo3 11:56 Drug: Nitrostat 0.4 mg [Nitrostat 0.4 mg sublingual tablet (1 tabs)] Route: Sublingual; jo3 12:16 CANCELLED (Other Intervention Used): Nitrostat 0.4 mg Sublingual once jo3 14:35 Drug: Ondansetron 4 mg [ondansetron HCl 2 mg/mL intravenous solution (2 mL)] Route: jo3 IVP; Site: right forearm; 15:24 Follow up: Response: Nausea is resolved jo3 15:24 Drug: NS 0.9% 500 ml [sodium chloride 0.9 % intravenous solution] Route: IV; Rate: jo3 bolus; Site: right forearm; Signatures: Dispatcher [employer] EDEvie Cameron, Wood Gouger Unit lbd Stacy Berrios, Reg Reg gb RudolphShashi RN RN mlb1 Merna SenaRN RN jo3 Brian Bowles MD MD br1 Mikayla Reed mm15 The chart was reviewed and I authenticate all verbal orders and agree with the evaluation and treatment provided.Corrections: (The following items were deleted from the chart) 11:00 10:27 ECG WITH READING ER PHYS+CARDIAG ordered. EDMS EDMS 11:59 11:49 LIVER PROFILE+LAB ordered. EDMS EDMS 11:59 11:49 LIPASE+LAB ordered. EDMS EDMS 12:16 12:03 Nitrostat 0.4 mg Sublingual once ordered. br1 jo3 Attachments: 11:53 [facility] Payment Agreement mm15 11/24 10:35 T-Sheet-- Draft Copy gb 10:35 ECG/EKG gb Chart Complete MTDD
--- NOTE | 2016-11-25 20:00 | EDDOCDS ---
Physician Documentation [facility] Name: Yasir Guevara Age: 86 yrs Sex: Male : 1930 Arrival Date: 11/23/2016 Time: 10:18 Bed 15 Private MD: Disposition: 11/23/16 18:36 Discharged to Home/Self Care. Impression: Chest pain, unspecified, Nausea. - Condition is Stable. - Discharge Instructions: Nonspecific Chest Pain, Nausea, Adult. - Prescriptions for ZOFRAN ODT 4 mg - dissolve 1 tablet by ORAL route 4 times per day As needed do not chew, do not swallow whole; 10 tablet. - Medication Reconciliation, Local Pharmacy Hours form. - Follow up: Asad Gill; When: 2 - 3 days; Reason: Recheck today's complaints. Follow up: Efrain Bose; When: 2 - 3 days; Reason: Recheck today's complaints. - Problem is new. - Symptoms have improved. - Notes: You were seen in the ED for chest pain with nausea and dizziness. You were treated and improved with nausea medicine and fluids. Bloodwork along with chest XRay, EKG of the heart, CT scan of the chest and cardiac monitoring showed no other acute findings. We have discussed the case with cardiology as well. As you are feeling better you may return home. You may take Zofran as needed for nausea. Call your primary doctor and Dr. Bose in the morning to discuss the ED visit and arrange follow-up appointments for rechecks in their offices this week. Return to the ED for any return of chest pain, trouble breathing, lightheadedness, loss of consciousness, fever, abdominal pain, or any other concerns. Historical: - Allergies: No known drug Allergies; - Home Meds: 1. tamsulosin 0.4 mg oral cp24 1 cap once daily 2. amlodipine 5 mg oral tab 1 tab once daily 3. tizanidine 4 mg oral tab nightly 4. atorvastatin 20 mg oral tab 1 tab once daily 5. pantoprazole 40 mg oral TbEC 1 tab 2 times per day 6. elequis 5mg twice a day 7. Plavix 75 mg Oral tab 1 tab once daily 8. valsartan 320 mg oral tab 0.5 tab once daily 9. timolol maleate 0.5 % Opht drpd 1 drop 2 times per day 10. amoxicillin-pot clavulanate 875-125 mg Oral tab 1 tab every 12 hours - PMHx: A-fib; BPH; CAD; cardiac stent; GERD; Hypercholesterolemia; Hypertension; Sciatica; - PSHx: Cardiac stents; - Social history: Smoking status: Patient states former smoker of tobacco. No barriers to communication noted, The patient speaks fluent Mexican, Speaks appropriately for age. - Family history: Not pertinent. - : The pt / caregiver states he / she is on anticoagulants: Plavix. Home medication list is obtained from the patient. - Exposure Risk Screening:: None identified. Vital Signs: 11/23 10:20 BP 144 / 76 LA Sitting (auto/reg); Pulse 61; Resp 18; Temp 97.0(O); Pulse Ox 100% on jrd R/A; Weight 83.91 kg / 184.99 lbs (R); Height 6 ft. 1 in. (185.42 cm) (R); Pain 8/10; 10:51 BP 137 / 68 (auto/); jo3 10:51 Pulse 56 MON; Pulse Ox 100% ; jo3 11:00 BP 125 / 69 (auto/); jo3 11:01 Pulse 52 MON; Pulse Ox 100% ; jo3 11:15 BP 138 / 69 (auto/); jo3 11:15 Pulse 56 MON; Pulse Ox 100% ; jo3 11:30 BP 126 / 63 (auto/); jo3 11:30 Pulse 52 MON; Pulse Ox 99% ; jo3 11:44 Pulse 56 MON; Pulse Ox 100% ; jo3 11:45 BP 160 / 69 (auto/); jo3 11:59 Pulse 58 MON; Pulse Ox 97% ; jo3 12:00 BP 85 / 50 (auto/); jo3 12:04 BP 100 / 57 (auto/); jo3 12:04 Pulse 60 MON; Pulse Ox 93% ; jo3 12:05 BP 106 / 59 (auto/); jo3 12:05 Pulse 60 MON; Pulse Ox 96% ; jo3 12:15 BP 106 / 60 (auto/); jo3 12:15 Pulse 56 MON; Pulse Ox 97% ; jo3 12:30 BP 127 / 68 (auto/); jo3 12:30 Pulse 54 MON; Pulse Ox 98% ; jo3 12:49 BP 179 / 77 (auto/); jo3 12:51 Pulse 78 MON; Pulse Ox 97% ; jo3 13:00 BP 127 / 69 (auto/); jo3 13:00 Pulse 58 MON; Pulse Ox 97% ; jo3 13:15 Pulse 58 MON; Pulse Ox 98% ; jo3 13:15 BP 145 / 76 Sitting (auto/); Pulse 58; jo3 13:18 BP 101 / 58 Standing (auto/); Pulse 60; jo3 13:20 Pulse 60 MON; Pulse Ox 97% ; jo3 18:21 BP 157 / 82; Pulse 57; Resp 17; Temp 98.0(O); Pulse Ox 97% on R/A; lr2 10:20 Body Mass Index 24.41 (83.91 kg, 185.42 cm) jrd MDM: 10:27 Lab Instructor/Pulse Ox/q 30 min VS ordered. br1 10:27 IV Saline Lock ordered. br1 10:27 Rhythm Strip to chart ordered. br1 10:27 Undress patient appropriately for examination ordered. br1 10:29 Basic Metabolic Profile Ordered. EDMS 10:29 CBC with Diff Ordered. EDMS 10:29 Cardiac Injury Profile Ordered. EDMS 10:29 Troponin Ordered. EDMS 10:29 ECG WITH READING ER PHYS+CARDIAG ordered. EDMS 11:03 Chest, 1 View Ordered. EDMS 11:39 NS 0.9% 1000 ml IV at 150 mL/hr continuous ordered. br1 11:48 Aspirin 324 mg PO once ordered. br1 11:48 Nitrostat 0.4 mg Sublingual once ordered. br1 11:49 Orthostatic VS ordered. br1 11:49 CT Chest Angio R/O PE Ordered. EDMS 11:53 Financial registration complete. mm15 11:53 [facility] Payment Agreement was scanned into [employer] and attached to record. mm15 11:59 LIPASE Ordered. EDMS 11:59 LIVER PROFILE Ordered. EDMS 14:23 Ondansetron 4 mg IVP once ordered. br1 14:23 Fluid Challenge ordered. br1 14:24 Repeat EKG (put time details section) ordered. br1 14:24 Redraw CIP &Troponin (put time in details section) ordered. br1 14:24 Admit to ED Observation status ordered. br1 14:50 REGULAR+DIET ordered. EDMS 14:53 Basic Metabolic Profile Reviewed. br1 14:53 CBC with Diff Reviewed. br1 14:53 Fingerstick Blood Sugar Reviewed. br1 14:53 LIVER PROFILE Reviewed. br1 14:53 Cardiac Injury Profile Reviewed. br1 14:53 Troponin Reviewed. br1 14:53 LIPASE Reviewed. br1 14:53 EKG-ADULT Reviewed. br1 14:53 Chest, 1 View Reviewed. br1 14:53 CT Chest Angio R/O PE Reviewed. br1 15:08 Redraw CIP &Troponin (put time in details section) complete. lbd 15:08 Repeat EKG (put time details section) complete. lbd 15:09 CARDIAC MARKER PANEL Ordered. EDMS 15:10 ECG WITH READING ER PHYS ordered. EDMS 15:23 NS 0.9% 500 ml IV at bolus once ordered. br1 18:23 CARDIAC MARKER PANEL Reviewed. br1 0216 10:35 T-Sheet-- Draft Copy was scanned into [employer] and attached to record. gb 10:35 ECG/EKG was scanned into [employer] and attached to record. gb 10:35 Radiology Report was scanned into [employer] and attached to record. gb Administered Medications: 11/23 11:56 Drug: NS 0.9% 1000 ml [sodium chloride 0.9 % intravenous solution] Route: IV; Rate: 150 jo3 mL/hr; Site: right forearm; 15:27 Follow up: IV Status: Completed infusion jo3 11:56 Drug: Aspirin 324 mg [aspirin 81 mg chewable tablet (4 tabs)] Route: PO; jo3 11:56 Drug: Nitrostat 0.4 mg [Nitrostat 0.4 mg sublingual tablet (1 tabs)] Route: Sublingual; jo3 12:16 CANCELLED (Other Intervention Used): Nitrostat 0.4 mg Sublingual once jo3 14:35 Drug: Ondansetron 4 mg [ondansetron HCl 2 mg/mL intravenous solution (2 mL)] Route: jo3 IVP; Site: right forearm; 15:24 Follow up: Response: Nausea is resolved jo3 15:24 Drug: NS 0.9% 500 ml [sodium chloride 0.9 % intravenous solution] Route: IV; Rate: jo3 bolus; Site: right forearm; Signatures: Dispatcher [employer] EDEvie Cameron, Fur Weigher Unit lbd Stacy Berrios, Reg Reg gb RudolphShashi RN RN mlb1 Merna SenaRN RN jo3 Brian Bowles MD MD br1 Mikayla Reed mm15 The chart was reviewed and I authenticate all verbal orders and agree with the evaluation and treatment provided.Corrections: (The following items were deleted from the chart) 11:00 10:27 ECG WITH READING ER PHYS+CARDIAG ordered. EDMS EDMS 11:59 11:49 LIVER PROFILE+LAB ordered. EDMS EDMS 11:59 11:49 LIPASE+LAB ordered. EDMS EDMS 12:16 12:03 Nitrostat 0.4 mg Sublingual once ordered. br1 jo3 Attachments: 11:53 [facility] Payment Agreement mm15 11/24 10:35 T-Sheet-- Draft Copy gb 10:35 ECG/EKG gb Chart Complete MTDD
== END 2016-11-23 19:00 | disposition home or self-care (01) ==
LOC: M ED 10:18
DX: R11.0 Nausea (principal); R07.9 Chest pain, unspecified; I48.91 Unspecified atrial fibrillation; I25.10 Atherosclerotic heart disease of native coronary artery without angina pectoris; Z95.5 Presence of coronary angioplasty implant and graft; N40.0 Benign prostatic hyperplasia without lower urinary tract symptoms; K21.9 Gastro-esophageal reflux disease without esophagitis; E78.00 Pure hypercholesterolemia, unspecified; I10 Essential (primary) hypertension; M54.30 Sciatica, unspecified side; Z87.891 Personal history of nicotine dependence; Z79.01 Long term (current) use of anticoagulants; Z79.02 Long term (current) use of antithrombotics/antiplatelets; Z79.899 Other long term (current) drug therapy
CPT/HCPCS: 36415; 71010; 71275; 80048; 80076; 82550; 82553; 83690; 84484; 85025; 93005; 93041; 96361; 96374; 99285; J2405; Q9967

== ENCOUNTER 2016-12-01 09:13 | Observation (INO) | payer MEDICARE ==
[~2016-12-01] VITALS: Ht 185.4 cm; Wt 81.0 kg
[2016-12-01 11:38] LABS: BASO % 0.4 % (0.0-1.0); EOS # 0.2 K/mm3 (0.0-0.50); EOS % 2.8 % (0.0-3.0); LARGE UNSTAINED CELL # 0.1 K/mm3 (0.0-0.4); LARGE UNSTAINED CELL % 1.3 % (0.0-4.0); LYMPH # 1.3 K/mm3 (1.5-4.5); LYMPH % 18.1 % (24.0-44.0); MEAN CORPUSCULAR HEMOGLOBIN 30.9 pg (27.0-33.0); MEAN CORPUSCULAR HGB CONC 35.3 g/dl (32.0-36.5); MEAN CORPUSCULAR VOLUME 87.5 fl (80.0-96.0); MONO # 0.4 K/mm3 (0.0-0.8); MONO % 6.1 % (0.0-5.0); NEUTROPHILS # 4.6 K/mm3 (1.8-7.7); NEUTROPHILS % 71.2 % (36.0-66.0); PLATELET COUNT, AUTOMATED 227 k/mm3 (150-450); RED CELL DISTRIBUTION WIDTH 13.4 % (11.5-14.5); WHITE BLOOD COUNT 6.4 K/mm3 (4.0-10.0)
[2016-12-01 12:08] LABS: AMYLASE 31 U/L (25-115); ANION GAP 7 MEQ/L (8-16); BLOOD UREA NITROGEN 10 MG/DL (7-18); CALCIUM LEVEL 8.5 MG/DL (8.8-10.2); CARBON DIOXIDE LEVEL 27 MEQ/L (21-32); CHLORIDE LEVEL 95 MEQ/L (98-107); CREATININE FOR GFR 0.84 MG/DL (0.70-1.30); GLOMERULAR FILTRATION RATE > 60.0 (>35); GLUCOSE, FASTING 84 MG/DL (83-110); MAGNESIUM LEVEL 2.1 MG/DL (1.8-2.4); POTASSIUM SERUM 4.1 MEQ/L (3.5-5.1); SODIUM LEVEL 129 MEQ/L (136-145)
[2016-12-01] MEDS ORDERED: ONDANSETRON 4MG/2ML VIAL (J2405) IV PRN (13:15)
[2016-12-01] MEDS ORDERED: NS 1,000 ML IV SCH (13:30)
[2016-12-01] MEDS ORDERED: TIZA4CAP3 PO (13:42)
[2016-12-01] MEDS ORDERED: FLOM5CAP PO (13:42)
[2016-12-01 14:50] VITALS: BP 129/58
[2016-12-01 15:06] LABS: URIC ACID 3.1 MG/DL (3.5-7.2)
--- NOTE | 2016-12-01 16:50 | EDDOCDS ---
Physician Documentation [facility] Name: Yasir Guevara Age: 86 yrs Sex: Male : 1930 Arrival Date: 12/01/2016 Time: 09:13 Bed Admit Hold Private MD: Asad Gill Disposition: 12/01 13:34 Critical Care: Critical care not applicable. pc 13:49 I have independently interviewed and examined the patient, and I agree with the pc investigation, diagnosis and treatment plan as documented by the Resident. Disposition: 12/01/16 13:35 Hospitalization ordered by Nicky Ruiz for Inpatient Admission. Preliminary diagnosis is Orthostatic hypotension. - Bed requested for 4 [place]. - Status is Inpatient Admission. dsf - Condition is Stable. - Problem is new. - Symptoms are unchanged. Historical: - Allergies: no known allergies; - Home Meds: 1. pantoprazole 40 mg oral TbEC 1 tab 2 times per day (Last dose: 12/01/2016 08:30) 2. elequis 5mg twice a day (Last dose: 12/01/2016 08:30) 3. valsartan 320 mg oral tab 0.5 tab once daily (Last dose: 12/01/2016 08:30) 4. amoxicillin-pot clavulanate 875-125 mg Oral tab 1 tab every 12 hours (Last dose: 12/01/2016 08:30) 5. Plavix 75 mg Oral tab 1 tab once daily (Last dose: 12/01/2016 08:30) 6. timolol maleate 0.5 % Opht drpd 1 drop 2 times per day (Last dose: 12/01/2016 08:30) 7. atorvastatin 20 mg oral tab 1 tab once daily (Last dose: 12/01/2016 08:30) 8. tizanidine 4 mg oral tab nightly (Last dose: 11/30/2016) 9. tamsulosin 0.4 mg oral cp24 1 cap once daily (Last dose: 12/01/2016 08:30) - PMHx: A-fib; BPH; CAD; cardiac stent; GERD; Hypercholesterolemia; Hypertension; Sciatica; - PSHx: Cardiac stents; - Social history: Smoking status: Patient states former smoker of tobacco. No barriers to communication noted, The patient speaks fluent Khmer, Speaks appropriately for age. - Family history: Not pertinent. - : The pt / caregiver states he / she is on anticoagulants: Plavix. [facility] Home medication list is obtained from the patient. - Exposure Risk Screening:: None identified. Vital Signs: 09:23 BP 140 / 65; Pulse 66; Resp 18; Temp 96.8(O); Pulse Ox 99% ; Weight 85.73 kg / 189 lbs; srm Height 6 ft. 1 in. (185.42 cm) (R); 11:33 BP 162 / 74 Supine; Pulse 63; Pulse Ox 97% on R/A; dsf 11:33 BP 159 / 75 Sitting; Pulse 62; Pulse Ox 95% on R/A; dsf 11:33 BP 99 / 60 Standing; Pulse 64; Pulse Ox 99% on R/A; dsf 13:03 BP 102 / 67 (auto/); dsf 13:04 Pulse 56 MON; Resp 20; Pulse Ox 98% on R/A; Pain 0/10; dsf 14:42 BP 129 / 58; Pulse 60; Resp 16; Temp 97.7(O); Pulse Ox 97% ; jo3 16:13 BP 130 / 60; Pulse 78; Resp 18; Temp 97.8(O); Pulse Ox 100% on R/A; Pain 0/10; dem1 16:42 BP 146 / 70; Pulse 56; Resp 20; Temp 96.5(O); Pulse Ox 98% on R/A; Pain 0/10; dsf 09:23 Body Mass Index 24.94 (85.73 kg, 185.42 cm) [facility] MDM: 10:54 Orthostatic VS ordered. gk1 10:54 IV Saline Lock ordered. gk1 10:55 ECG WITH READING ER PHYS+CARDIAG ordered. EDMS 10:56 CIP Ordered. EDMS 10:56 Troponin Ordered. EDMS 10:56 Amylase Ordered. EDMS 10:56 Lipase Ordered. EDMS 10:56 CBC with Diff Ordered. EDMS 10:56 Basic Metabolic Profile Ordered. EDMS 10:59 MAGNESIUM LEVEL Ordered. EDMS 11:52 CBC with Diff Reviewed. gk1 12:06 Financial registration complete. lg 12:41 Basic Metabolic Profile Reviewed. pc 12:41 CIP Reviewed. pc 12:41 Troponin Reviewed. pc 12:41 Amylase Reviewed. pc 12:41 Lipase Reviewed. pc 12:41 MAGNESIUM LEVEL Reviewed. pc 13:11 [facility] Payment Agreement was scanned into [employer] and attached to record. lg 13:15 CARDIAC MARKER PANEL Ordered. EDMS 13:16 PHYSICAL THERAPY EVAL & TREAT ordered. EDMS 13:16 Admission / Observation Status ordered. EDMS 13:17 OTHER CUSTOM DIETS ordered. EDMS 13:34 The patient has been re-examined and re-evaluated. There is no appreciated change of pc the patient's symptoms at this time. Physician consultation: Dr. Nicky Ruiz regarding admission. Disposition: The historical points, examination findings, and any diagnostic results supporting the provided diagnosis, were discussed with the patient or legal guardian. The need for further work-up and/or treatment in the hospital was explained. 14:02 Admission / Observation Status ordered. EDMS 14:30 SODIUM,RANDOM URINE Ordered. EDMS 14:30 OSMOLALITY,URINE Ordered. EDMS Signatures: Dispatcher [employer] EDMS Tomas Del Toro MD MD pc Gabriela Henao, [employer] Med[employer] Unit deg Desiree Marie, RN RN srm Kat Mendoza, Reg Reg lg Mery Bethea,RN RN dsf Andreea Voss RN RN sls2 Aaron Sherman, DO DO gk1 The chart was reviewed and I authenticate all verbal orders and agree with the evaluation and treatment provided.Corrections: (The following items were deleted from the chart) 10:58 10:56 MAGNESIUM LEVEL+LAB ordered. EDMS EDMS 14:47 14:42 URIC ACID ordered. EDMS EDMS Attachments: 13:11 [facility] Payment Agreement lg MTDD
--- NOTE | 2016-12-01 16:50 | EDDOCDS ---
Nurse's Notes [facility] Name: Yasir Guevara Age: 86 yrs Sex: Male : 1930 Arrival Date: 12/01/2016 Time: 09:13 Bed Admit Hold Private MD: Asad Gill Diagnosis: Orthostatic hypotension Presentation: 12/01 09:18 Presenting complaint: Patient states: hx diverticulitis in past 5-6 weeks. saw [facility] differential tester for off and on chest pain. nausea and stomach pain. chest pain and SOB "now and again". Adult Sepsis Screening: The patient does not have new or worsening altered mentation. Suicide/Homicide risk assessment- the patient denies having any suicidal and/or homicidal ideations and does not present with any other emotional, behavioral or mental health complaints. Status: Patient is not a telephone services sales representative or dependent. Transition of care: patient was not received from another setting of care. 09:18 Acuity: ELIER Level 3 [facility] 09:18 Method Of Arrival: Wheelchair [facility] 09:26 Adult Sepsis Screening: Systolic blood pressure is greater than 100. Patient has a [facility] qSOFA score of 0- Negative Sepsis Screen. Triage Assessment: 09:23 General: Appears in no apparent distress, Behavior is appropriate for age, cooperative. [facility] Pain: Location: epigastric Pain currently is 5 out of 10 on a pain scale. Historical: - Allergies: no known allergies; - Home Meds: 1. pantoprazole 40 mg oral TbEC 1 tab 2 times per day (Last dose: 12/01/2016 08:30) 2. elequis 5mg twice a day (Last dose: 12/01/2016 08:30) 3. valsartan 320 mg oral tab 0.5 tab once daily (Last dose: 12/01/2016 08:30) 4. amoxicillin-pot clavulanate 875-125 mg Oral tab 1 tab every 12 hours (Last dose: 12/01/2016 08:30) 5. Plavix 75 mg Oral tab 1 tab once daily (Last dose: 12/01/2016 08:30) 6. timolol maleate 0.5 % Opht drpd 1 drop 2 times per day (Last dose: 12/01/2016 08:30) 7. atorvastatin 20 mg oral tab 1 tab once daily (Last dose: 12/01/2016 08:30) 8. tizanidine 4 mg oral tab nightly (Last dose: 11/30/2016) 9. tamsulosin 0.4 mg oral cp24 1 cap once daily (Last dose: 12/01/2016 08:30) - PMHx: A-fib; BPH; CAD; cardiac stent; GERD; Hypercholesterolemia; Hypertension; Sciatica; - PSHx: Cardiac stents; - Social history: Smoking status: Patient states former smoker of tobacco. No barriers to communication noted, The patient speaks fluent Hebrew, Speaks appropriately for age. - Family history: Not pertinent. - : The pt / caregiver states he / she is on anticoagulants: Plavix. EliIsoflux Home medication list is obtained from the patient. - Exposure Risk Screening:: None identified. Screenin:13 Screening information is obtained from the patient. Fall risk: No risks identified. ml6 Assistance ADL's: requires no assistance with activities of daily living. Abuse/DV Screen: The patient / caregiver reports he/she is: not in a situation that causes fear, pain or injury. Nutritional screening: No deficits noted. Advance Directives: Currently, there is no health care proxy. home support is adequate. Assessment: 10:00 General: Appears in no apparent distress, Behavior is anxious, cooperative. Pain: ml6 Denies pain. Neurological: No deficits noted. Level of Consciousness is awake, alert, Oriented to person, place, time. Cardiovascular: No deficits noted. Capillary refill < 3 seconds is brisk in bilateral fingers toes Heart tones S1 S2 present. Respiratory: No deficits noted. Airway is patent Respiratory effort is even, unlabored, Respiratory pattern is regular, symmetrical, Breath sounds are clear bilaterally. GI: Abdomen is flat, non- distended Bowel sounds present X 4 quads. Abd is soft and non tender X 4 quads. Reports nausea, Denies diarrhea, vomiting, pain. 11:34 Adult Sepsis Screening: The patient does not have new or worsening altered mentation. dsf Patient's respiratory rate is less than 22. Systolic blood pressure is less than or equal to 100 (1 point). Patient has a qSOFA score of 1- Negative Sepsis Screen. General: Appears in no apparent distress, comfortable, Behavior is appropriate for age, cooperative. Pain: Denies pain. Neurological: Level of Consciousness is awake, alert. Cardiovascular: Capillary refill < 3 seconds Heart tones S1 S2 present. Respiratory: Airway is patent Respiratory effort is even, unlabored, Respiratory pattern is regular, symmetrical, Breath sounds are clear bilaterally. GI: Abdomen is non- distended Bowel sounds present X 4 quads. Abd is soft and non tender X 4 quads. Derm: Skin is pink, warm & dry. 12:34 General: Appears in no apparent distress, Behavior is appropriate for age, cooperative. dsf Neurological: Level of Consciousness is awake, alert. Cardiovascular: Capillary refill < 3 seconds. Respiratory: Airway is patent Respiratory effort is even, unlabored, Respiratory pattern is regular, symmetrical. Derm: Skin is pink, warm & dry. 13:34 General: Appears in no apparent distress, comfortable, Behavior is appropriate for age, dsf cooperative. Pain: Denies pain. Neurological: Level of Consciousness is awake, alert. Cardiovascular: Capillary refill < 3 seconds. Respiratory: Airway is patent Respiratory effort is even, unlabored, Respiratory pattern is regular, symmetrical. Derm: Skin is pink, warm & dry. 13:55 General: Dr. Ruiz in examining patient . dsf 14:00 Adult Sepsis Screening: The patient does not have new or worsening altered mentation. dsf Patient's respiratory rate is less than 22. Systolic blood pressure is greater than 100. Patient has a qSOFA score of 0- Negative Sepsis Screen. General: Appears in no apparent distress, comfortable, Behavior is appropriate for age, cooperative. Pain: Denies pain. Neurological: Level of Consciousness is awake, alert, Oriented to person, place, time. Cardiovascular: Capillary refill < 3 seconds Heart tones S1 S2 present. Respiratory: Airway is patent Respiratory effort is even, unlabored, Respiratory pattern is regular, symmetrical, Breath sounds are clear bilaterally. GI: Abdomen is non- distended Bowel sounds present X 4 quads. Abd is soft and non tender X 4 quads. Derm: Skin is pink, warm & dry. 15:00 General: Appears in no apparent distress, comfortable, Behavior is appropriate for age, dsf cooperative. Neurological: Level of Consciousness is awake, alert. Cardiovascular: No deficits noted. Respiratory: No deficits noted. Derm: Skin is pink, warm & dry. 16:06 Adult Sepsis Screening: The patient does not have new or worsening altered mentation. dsf Patient's respiratory rate is less than 22. Systolic blood pressure is greater than 100. Patient has a qSOFA score of 0- Negative Sepsis Screen. General: Appears in no apparent distress, comfortable, Behavior is appropriate for age, cooperative. Pain: Denies pain. Neurological: Level of Consciousness is awake, alert, Oriented to person, place, time. Cardiovascular: Capillary refill < 3 seconds. Respiratory: Airway is patent Respiratory effort is even, unlabored, Respiratory pattern is regular, symmetrical. Derm: Skin is pink, warm & dry. 16:45 General: Appears in no apparent distress, comfortable, Behavior is appropriate for age, dsf cooperative. Pain: Denies pain. Neurological: Level of Consciousness is awake, alert, Oriented to person, place, time. Cardiovascular: Capillary refill < 3 seconds. Respiratory: Airway is patent Respiratory effort is even, unlabored, Respiratory pattern is regular, symmetrical. Derm: Skin is pink, warm & dry. Vital Signs: 09:23 BP 140 / 65; Pulse 66; Resp 18; Temp 96.8(O); Pulse Ox 99% ; Weight 85.73 kg; Height 6 [facility] ft. 1 in. (185.42 cm) (R); 11:33 BP 162 / 74 Supine; Pulse 63; Pulse Ox 97% on R/A; dsf 11:33 BP 159 / 75 Sitting; Pulse 62; Pulse Ox 95% on R/A; dsf 11:33 BP 99 / 60 Standing; Pulse 64; Pulse Ox 99% on R/A; dsf 13:03 BP 102 / 67 (auto/); dsf 13:04 Pulse 56 MON; Resp 20; Pulse Ox 98% on R/A; Pain 0/10; dsf 14:42 BP 129 / 58; Pulse 60; Resp 16; Temp 97.7(O); Pulse Ox 97% ; jo3 16:13 BP 130 / 60; Pulse 78; Resp 18; Temp 97.8(O); Pulse Ox 100% on R/A; Pain 0/10; dem1 16:42 BP 146 / 70; Pulse 56; Resp 20; Temp 96.5(O); Pulse Ox 98% on R/A; Pain 0/10; dsf 09:23 Body Mass Index 24.94 (85.73 kg, 185.42 cm) [facility] Vitals: 09:23 Log In Time: December 01, 2016 at 09:11. [facility] ED Course: 09:17 Patient visited by Kat Mendoza Reg. lg 09:17 GillAsad Abdul Daljitreuben is Private Physician. lg 09:17 Patient moved to Waiting lg 09:19 Triage Initiated srm 09:22 Patient moved to Triage 2 [facility] 09:26 Jenna Martini RN is Primary Nurse. srm 09:26 Rex Emmanuel RN is Primary Nurse. srm 09:26 Patient moved to 8 srm 09:35 Primary Nurse role handed off by Jenna Martini RN pc 09:41 Aaron Sherman DO is PHCP. gk1 09:41 Tomas Del Toro MD is Attending Physician. gk1 09:41 Patient visited by Aaron Sherman DO. gk1 09:41 Patient visited by Aaron Sherman DO. gk1 10:16 Patient visited by Rex Emmanuel RN. ml6 10:40 Patient visited by Rex Emmanuel RN. ml6 11:01 EKG done. (by ED staff). Reviewed by Tomas Del Toro MD. dem1 11:05 Patient visited by Shaun Cruz. dem1 11:13 The patient / caregiver is instructed regarding the plan of care and ED course. ml6 11:34 Patient visited by Mery Bethea RN. dsf 11:34 Inserted saline lock: 20 gauge in right antecubital area The patient tolerated the dsf procedure well. 11:35 Patient visited by Mery Bethea RN. dsf 12:49 Patient visited by Mery Bethea RN. dsf 13:10 Patient name changed from Yasir\\S\\\\S\\[place]\\S\\ to Yasir\\S\\ \\S\\[place]. EDMS 13:11 [facility] Payment Agreement was scanned into [employer] and attached to record. lg 13:35 Nicky Ruiz is Hospitalizing Provider. pc 13:40 Patient moved to Admit Hold [id number] 14:01 Patient visited by Mery Bethea RN. dsf 15:24 No procedures done that require assistance. dsf 15:26 Patient visited by Mery Bethea RN. dsf 16:13 Patient visited by Shaun Cruz. dem1 Order Results: Lab Order: CIP; SPEC'M 12/01/16 11:01 Test: CPK CREATINE PHOSPHOKINASE; Value: 89; Range: 39-308; Units: U/L; Status: F Test: CK-MB VALUE MASS; Value: 2.2; Range: 0.0-3.6; Units: NG/ML; Status: F Test: MB/CK RELATIVE INDEX; Value: 2.47; Range: < OR =4; Status: F Test Note: ; DIAGNOSIS CRITERIA MMB ng/ml Relative Index (RI) NON-AMI < or = 5 N/A CA ZONE > 5 < or = 4 AMI > 5 > 4 Lab Order: Troponin; [facility]' 12/01/16 11:01 Test: TROPONIN I; Value: < 0.02; Range: < 0.10; Units: NG/ML; Status: F Test Note: ; Troponin I Reference Interval for [facility] LOCI: 99th Percentile= 0.00-0.045 ng/ml Risk Stratification: <= 0.10 ng/ml Decreased Risk for Adverse Clinical Events. 0.10-1.50 ng/ml Increased Risk for Adverse Clinical Events. Evaluation of additional criterion and/or repeat testing in 2-6 hours is suggested to rule out myocardial damage. >= 1.50 ng/ml Indicative of Myocardial Injury. Lab Order: Amylase; [facility]' 12/01/16 11:01 Test: AMYLASE; Value: 31; Range: 25-115; Units: U/L; Status: F Lab Order: Lipase; [facility] 12/01/16 11:01 Test: LIPASE; Value: 165; Range: 73-393; Units: U/L; Status: F Lab Order: CBC with Diff; [facility] 12/01/16 11:01 Test: WHITE BLOOD COUNT; Value: 6.4; Range: 4.0-10.0; Units: K/mm3; Status: F Test: RED BLOOD COUNT; Value: 4.05; Range: 4.30-6.10; Abnormal: Below low normal; Units: M/mm3; Status: F Test: HEMOGLOBIN; Value: 12.5; Range: 14.0-18.0; Abnormal: Below low normal; Units: g/dl; Status: F Test: HEMATOCRIT; Value: 35.4; Range: 42.0-52.0; Abnormal: Below low normal; Units: %; Status: F Test: MEAN CORPUSCULAR VOLUME; Value: 87.5; Range: 80.0-96.0; Units: fl; Status: F Test: MEAN CORPUSCULAR HEMOGLOBIN; Value: 30.9; Range: 27.0-33.0; Units: pg; Status: F Test: MEAN CORPUSCULAR HGB CONC; Value: 35.3; Range: 32.0-36.5; Units: g/dl; Status: F Test: RED CELL DISTRIBUTION WIDTH; Value: 13.4; Range: 11.5-14.5; Units: %; Status: F Test: PLATELET COUNT, AUTOMATED; Value: 227; Range: 150-450; Units: k/mm3; Status: F Test: NEUTROPHILS %; Value: 71.2; Range: 36.0-66.0; Abnormal: Above high normal; Units: %; Status: F Test: LYMPH %; Value: 18.1; Range: 24.0-44.0; Abnormal: Below low normal; Units: %; Status: F Test: MONO %; Value: 6.1; Range: 0.0-5.0; Abnormal: Above high normal; Units: %; Status: F Test: EOS %; Value: 2.8; Range: 0.0-3.0; Units: %; Status: F Test: BASO %; Value: 0.4; Range: 0.0-1.0; Units: %; Status: F Test: LARGE UNSTAINED CELL %; Value: 1.3; Range: 0.0-4.0; Units: %; Status: F Test: NEUTROPHILS #; Value: 4.6; Range: 1.8-7.7; Units: K/mm3; Status: F Test: LYMPH #; Value: 1.3; Range: 1.5-4.5; Abnormal: Below low normal; Units: K/mm3; Status: F Test: MONO #; Value: 0.4; Range: 0.0-0.8; Units: K/mm3; Status: F Test: EOS #; Value: 0.2; Range: 0.0-0.50; Units: K/mm3; Status: F Test: BASO #; Value: 0.0; Range: 0.0-0.2; Units: K/mm3; Status: F Test: LARGE UNSTAINED CELL #; Value: 0.1; Range: 0.0-0.4; Units: K/mm3; Status: F Lab Order: Basic Metabolic Profile; 12/01/16 11:01 Test: GLUCOSE, FASTING; Value: 84; Range: 83-110; Units: MG/DL; Status: F Test: BLOOD UREA NITROGEN; Value: 10; Range: 7-18; Units: MG/DL; Status: F Test: CREATININE FOR GFR; Value: 0.84; Range: 0.70-1.30; Units: MG/DL; Status: F Test: GLOMERULAR FILTRATION RATE; Value: > 60.0; Range: >35; Status: F Test: SODIUM LEVEL; Value: 129; Range: 136-145; Abnormal: Below low normal; Units: MEQ/L; Status: F Test: POTASSIUM SERUM; Value: 4.1; Range: 3.5-5.1; Units: MEQ/L; Status: F Test: CHLORIDE LEVEL; Value: 95; Range: 98-107; Abnormal: Below low normal; Units: MEQ/L; Status: F Test: CARBON DIOXIDE LEVEL; Value: 27; Range: 21-32; Units: MEQ/L; Status: F Test: ANION GAP; Value: 7; Range: 8-16; Abnormal: Below low normal; Units: MEQ/L; Status: F Test: CALCIUM LEVEL; Value: 8.5; Range: 8.8-10.2; Abnormal: Below low normal; Units: MG/DL; Status: F Test Note: ; Units are mL/min/1.73 m2 Chronic Kidney Disease Staging per NKF: Stage I & II GFR >=60 Normal to Mildly Decreased Stage III GFR 30-59 Moderately Decreased Stage IV GFR 15-29 Severely Decreased Stage V GFR <15 Very Little GFR Left ESRD GFR <15 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 pc 15:24 No special radiology studies were completed. dsf 15:26 Discharge Assessment: Patient awake, alert and oriented x 3. No cognitive and/or dsf functional deficits noted. Patient verbalized understanding of disposition instructions. patient administered narcotics - no. 15:46 Admission hand-off: Report Faxed Fax receipt verified by PCU nurse. dsf 15:47 The following High Risk Discharge criteria are identified: None. dsf 16:06 Condition: stable. Property :Personal belongings accompany Pt. dsf 16:45 Admitted to Med/Surg accompanied by tech, family with patient, via wheelchair, with dsf chart. 16:49 Patient left the ED. dsf Signatures: Dispatcher [employer] EDMS Tomas Del Toro MD MD pc Jobson, Karen, RN RN Desiree Espinosa, RN RN Kat Rosario, Mikel Reg lg Merna SenaRN RN Rex Ross RN Mery CampaRN Shaun Carter Jennifer, RN RN [id number] Aaron Sherman, DO gk1 Corrections: (The following items were deleted from the chart) 14:43 14:42 Temp 97.7F Oral; misha cabral 16:45 16:06 Admitted to PCU accompanied by nurse, accompanied by tech, via stretcher, on dsf monitor, dsf MTDD
[2016-12-01 16:59] VITALS: BP 160/77
[2016-12-01 17:00] VITALS: BP 129/59
[2016-12-01 17:01] VITALS: BP 107/57
[2016-12-01] MEDS: METOCLOPRAMIDE 5 MG TAB PO SCH ×2 (17:24→20:22)
[2016-12-01] MEDS: APIXABAN 5 MG TAB (ELIQUIS) PO SCH (20:22)
[2016-12-01] MEDS: SENOKOT S TAB PO SCH (20:22)
[2016-12-01] MEDS: PANTOPRAZOLE 40MG TAB (PROTONIX) PO SCH (20:22)
[2016-12-01 20:30] VITALS: BP_SYST 126; BP_SYST 132; BP_SYST 159; BP_DIAS 68; BP_DIAS 70; BP_DIAS 86
[2016-12-01 20:35] VITALS: BP 159/86
[2016-12-01] MEDS: TIMOLOL MALEATE 0.5% OPHTH SOLN 5 ML OU SCH (22:01)
--- NOTE | 2016-12-01 22:14 | HPE ---
DATE OF ADMISSION: 12/01/2016 PRIMARY CARE PROVIDER: Dr. Maxx Gill CHIEF COMPLAINT: Abdominal pain, nausea, and dizziness for two weeks, intermittent chest pain for the same duration. PAST MEDICAL HISTORY: 1. Atrial fibrillation, on Eliquis. 2. Coronary artery disease. 3. Diverticulosis. 4. Restless leg syndrome. 5. 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 6. Orthostatic hypotension. 7. Supine hypertension. 8. Gastroesophageal reflux disease. 9. Dyslipidemia. 10. Benign prostatic hypertrophy. HISTORY OF PRESENT ILLNESS: This is an 86-year-old male from [facility] who was discharged from the hospital after treatment for acute diverticulitis and hyponatremia, thought to be due to syndrome of inappropriate secretion of antidiuretic hormone (SIADH) on 11/09/2016 after he was discharged with amoxicillin, clavulanic acid; however, he took only two or three doses after discharge, but it was making him very nauseous, so he stopped taking; however, he continued to feel nauseous and crampy abdominal pain intermittently over the past two to three weeks. Along with it he also was complaining of dizziness on standing up and walking. He called his occasional babysitter and spoke with the nurse practitioner and was instructed to come to the emergency room for evaluation. He had also complained of chest pain ongoing off and on for the same duration. In the emergency department (ED), he was noted to have orthostatic hypotension with supine blood pressure of 162/74 but standing blood pressure of 99/60. Recently his amlodipine was discontinued by his occasional babysitter. After discharge from the hospital, he was started on two new medications in November. One is Flomax, and the other is tizanidine, which he was taking for sciatica. He denies any fevers or chills, denied any diarrhea. Did have some constipation and took stool softener for that. Denied any shortness of breath, any cough or phlegm. He says that he takes 60 ounces of Gatorade daily, which apparently was advised by one of his physicians. Other than he that, he also takes other liquids. In the ED, his laboratory evaluation showed he was mildly hyponatremic with a sodium of 129. Rest of his laboratory results within normal limits. He is being admitted to the hospitalist service for orthostatic hypotension and hyponatremia. PAST SURGICAL HISTORY: Cardiac stents. SOCIAL HISTORY: Former smoker in the distant past. Does not consume alcohol. Does not have any history of use of recreational drugs. FAMILY HISTORY: Noncontributory. ALLERGIES: No known drug allergies. HOME MEDICATIONS: - Eliquis 5 mg by mouth twice a day - atorvastatin 20 mg by mouth daily - clopidogrel 25 mg by mouth daily - pantoprazole 40 mg by mouth twice a day - Flomax 0.4 mg at bedtime - Timolol maleate eyedrop - tizanidine 4 mg at bedtime - valsartan 160 mg by mouth daily REVIEW OF SYSTEMS: All 10-point review of systems are negative except those mentioned in history of present illness (HPI). PHYSICAL EXAMINATION: GENERAL: Patient awake, alert, oriented times three, lying down in bed in no acute distress. HEENT: Normocephalic, atraumatic. Moist mucous membranes. Anicteric eyes. CHEST: Some basilar crackles bilateral. Lungs otherwise clear to auscultation. CARDIOVASCULAR: S1, S2, regular . Bradycardia. No rub, murmur, or gallop. ABDOMEN: Soft, nontender. Bowel sounds normal. EXTREMITIES: No edema. BACK: There is mild sacral edema. VITAL SIGNS: Blood pressure 102/55, pulse 56, respiratory rate 16, temperature 96.8, pulse oximetry 99% in room air. LABORATORY DATA: WBC 6.4, hemoglobin 12.5, platelets 227. Sodium 129, potassium 4.1, chloride 95, bicarbonate 27, BUN 10, creatinine 0.8, glucose 84, calcium 8.5. First set of cardiac enzymes negative. Amylase, lipase normal. ASSESSMENT: This is an 86-year-old male admitted for orthostatic hypotension, hyponatremia, and nausea. PLAN: 1. For orthostatic hypotension, will hold tizanidine and Flomax. Will also hold Diovan at this point. Will allow the patient to have supine hypotension to the range of systolic blood pressure (SBP) of 160-170 over 90. Will check orthostatic blood pressures twice a day to see if there is an improvement of stopping medications. Will also get an echocardiogram. EKG shows sinus bradycardia with some premature ventricular contractions (PVCs). 2. Hyponatremia. Patient was previously evaluated by nephrology and was thought to have SIADH. Patient was supposed to be on 1500 mL fluid restriction and salt tablets, but patient was drinking about 60 ounces of Gatorade daily. Will put the patient on fluid restrictions, and if this does not improve his sodium, will add sodium chloride tablets. Will also sent urine for spot sodium and osmolality. Will also get uric acid level. 3. Atrial fibrillation. Rate is controlled, at present in sinus bradycardia. Will continue with Eliquis. 4. Hypotension. Patient is having orthostatic hypotension at this point, so we will hold all antihypertensive medication. 5. Hyperlipidemia. Will continue with atorvastatin. 6. Coronary artery disease with history of stents. Will continue with Plavix. 7. Gastroesophageal reflux disease. Will continue with pantoprazole. 8. Benign prostatic hypertrophy (BPH). Patient was on Flomax; however, because of orthostatic hypotension will hold Flomax. At this point, if patient's signs and symptoms improve, will see if he can tolerate some other antiprostate medications. 9. Deep vein thrombosis (DVT) prophylaxis. Patient is on Eliquis. 10. Nausea: could be due to orthostatic hypotension or medication related. will put on antiemetics. will hold tizanidine and flomax as these are the 2 medications started this month. MTDD
[2016-12-02] MEDS: ACETAMINOPHEN TAB 650MG DOSE (2X325MG) PO PRN ×2 (01:23→21:01)
[2016-12-02 05:40] VITALS: BP_SYST 156; BP_SYST 170; BP_DIAS 71; BP_DIAS 75; BP_DIAS 83
[2016-12-02 06:26] LABS: BASO % 0.3 % (0.0-1.0); EOS # 0.2 K/mm3 (0.0-0.50); EOS % 2.3 % (0.0-3.0); LARGE UNSTAINED CELL # 0.1 K/mm3 (0.0-0.4); LARGE UNSTAINED CELL % 1.4 % (0.0-4.0); LYMPH # 1.4 K/mm3 (1.5-4.5); LYMPH % 20.2 % (24.0-44.0); MEAN CORPUSCULAR HEMOGLOBIN 30.8 pg (27.0-33.0); MEAN CORPUSCULAR HGB CONC 35.2 g/dl (32.0-36.5); MEAN CORPUSCULAR VOLUME 87.6 fl (80.0-96.0); MONO # 0.4 K/mm3 (0.0-0.8); MONO % 6.3 % (0.0-5.0); NEUTROPHILS # 4.4 K/mm3 (1.8-7.7); NEUTROPHILS % 69.5 % (36.0-66.0); PLATELET COUNT, AUTOMATED 216 k/mm3 (150-450); RED CELL DISTRIBUTION WIDTH 13.4 % (11.5-14.5); WHITE BLOOD COUNT 6.3 K/mm3 (4.0-10.0)
[2016-12-02 06:52] LABS: ANION GAP 11 MEQ/L (8-16); BLOOD UREA NITROGEN 11 MG/DL (7-18); CALCIUM LEVEL 8.7 MG/DL (8.8-10.2); CARBON DIOXIDE LEVEL 25 MEQ/L (21-32); CHLORIDE LEVEL 96 MEQ/L (98-107); CREATININE FOR GFR 0.79 MG/DL (0.70-1.30); GLOMERULAR FILTRATION RATE > 60.0 (>35); GLUCOSE, FASTING 88 MG/DL (83-110); POTASSIUM SERUM 4.1 MEQ/L (3.5-5.1); SODIUM LEVEL 132 MEQ/L (136-145)
[2016-12-02] MEDS: CLOPIDOGREL 75 MG TAB PO SCH (08:51)
[2016-12-02] MEDS: METOCLOPRAMIDE 5 MG TAB PO SCH ×3 (08:51→20:17)
[2016-12-02] MEDS: APIXABAN 5 MG TAB (ELIQUIS) PO SCH ×2 (08:51→20:16)
[2016-12-02] MEDS: PANTOPRAZOLE 40MG TAB (PROTONIX) PO SCH ×2 (08:51→20:17)
[2016-12-02] MEDS: ATORVASTATIN 20 MG TAB PO SCH (08:51)
[2016-12-02] MEDS: SENOKOT S TAB PO SCH ×2 (08:51→20:16)
[2016-12-02] MEDS: VALSARTAN 80 MG TAB (DIOVAN) PO SCH (08:51)
[2016-12-02] MEDS: TIMOLOL MALEATE 0.5% OPHTH SOLN 5 ML OU SCH ×2 (08:55→20:16)
[2016-12-02] MEDS ORDERED: ENOXAPARIN 30 MG/0.3 ML SYR (J1650) SC SCH (09:00)
[2016-12-02 14:00] VITALS: BP 156/74
--- NOTE | 2016-12-02 14:30 | IPNPDOC ---
Text Note Date of Service The patient was seen on 12/02/16. NOTE Subjective: Pt states his dizziness upon standing is improving. Denies CP/ Palpitations. Objective: Vitals: (see below) General: No acute distress, laying comfortably in bed. HEENT: Moist mucous membranes. Neck: No JVD or lymphadenopathy Cardiac: RRR, No murmurs Pulm: Clear to auscultation b/l. No wheezing, rhonchi Abd: NT/ND + BS Ext: No edema or cyanosis Labs (see below) Images: Assessment/Plan 1. Orthostatic hypotension - likely medication related - flomax and tizanidine, which have been stopped. BP improved. Spoke with pt and daughter- major concern is falls/head trauma while being on Eliquis. 2. Hyponatremia - ?SIADH, however likely hypovolemic. Urine Na, osm pending. Started on IVF. Na improving. WIll monitor response before NaCl tab. 3. AF on Eliquis 4. HLD - on statin 5. CAD h/o PCI - on plavix 6. BPH - D/c flomax. will need Urology f/u. If retention continues, will try finasteride until seen by Urology, although finasteride may also cause orthostatic hypotension. DVT prophy: On Eliquis VS,Fishbone, I+O VS, Fishbone, I+O Laboratory Tests 12/02/16 05:31 Calcium Level 8.7 L, Red Blood Count 3.93 L, Mean Corpuscular Volume 87.6, Mean Corpuscular Hemoglobin 30.8, Mean Corpuscular Hemoglobin Concent 35.2, Red Cell Distribution Width 13.4, Neutrophils (%) (Auto) 69.5 H, Lymphocytes (%) (Auto) 20.2 L, Monocytes (%) (Auto) 6.3 H, Eosinophils (%) (Auto) 2.3, Basophils (%) ( Auto) 0.3, Neutrophils # (Auto) 4.4, Lymphocytes # (Auto) 1.4 L, Monocytes # ( Auto) 0.4, Eosinophils # (Auto) 0.2, Basophils # (Auto) 0.0 Vital Signs Date Time Temp Pulse Resp B/P Pulse Ox O2 Delivery O2 Flow Rate FiO2 12/02/16 09:15 Room Air 12/02/16 08:51 170/83 12/02/16 05:40 96.7 60 17 96 I&O- Last 24 Hours up to 6 AM 12/02/16 05:59 Intake Total 700 ml Output Total 1200 ml Balance -500 ml JUAN ALBERTO ZAVALETA MD Dec 02, 2016 14:30
--- NOTE | 2016-12-02 15:12 | ECGEPIP ---
Stationary ECG Study [facility] - ED Test Date: 2016-12-01 Pat Name: SHITAL DOAN Department: Room: - Gender: M Wiper Blender: ronald : 1930 Requested By: RUDDY ALBA1 Order Number: [id number] Reading MD: Amanda Elise Measurements Intervals [place] Rate: 58 P: 52 CA: 210 QRS: -20 QRSD: 97 T: -8 QT: 392 QTc: 388 Interpretive Statements SINUS BRADYCARDIA WITH FIRST DEGREE AV BLOCK WITH OCCASIONAL VENTRICULAR PREMATURE COMPLEXES NSTTW ABNORMALITY PRWP INCREASED ECTOPY COMPARED 11/23/16 Electronically Signed On 12-02-2016 15:12:33 EST by Amanda Elise
[2016-12-02 18:37] LABS: ANION GAP 9 MEQ/L (8-16); BLOOD UREA NITROGEN 16 MG/DL (7-18); CALCIUM LEVEL 8.6 MG/DL (8.8-10.2); CARBON DIOXIDE LEVEL 27 MEQ/L (21-32); CHLORIDE LEVEL 93 MEQ/L (98-107); GLOMERULAR FILTRATION RATE > 60.0 (>35); GLUCOSE, FASTING 112 MG/DL (83-110); POTASSIUM SERUM 3.9 MEQ/L (3.5-5.1); SODIUM LEVEL 129 MEQ/L (136-145)
[2016-12-02] MEDS ORDERED: NS 1,000 ML IV SCH (19:30)
[2016-12-02 20:45] VITALS: BP 145/77
[2016-12-02 21:00] VITALS: BP_SYST 145; BP_SYST 186; BP_SYST 88; BP_DIAS 56; BP_DIAS 77; BP_DIAS 82
[2016-12-02] MEDS ORDERED: SODIUM CHLORIDE 1 GM TAB PO ONE (21:00)
[2016-12-03 01:07] LABS: OSMOLALITY URINE 603 MOSM/KG (500-800)
[2016-12-03 05:25] VITALS: BP 166/62
[2016-12-03 06:35] LABS: BASO % 0.2 % (0.0-1.0); EOS # 0.1 K/mm3 (0.0-0.50); EOS % 1.4 % (0.0-3.0); LARGE UNSTAINED CELL # 0.1 K/mm3 (0.0-0.4); LARGE UNSTAINED CELL % 1.5 % (0.0-4.0); LYMPH # 1.2 K/mm3 (1.5-4.5); LYMPH % 22.2 % (24.0-44.0); MEAN CORPUSCULAR HEMOGLOBIN 30.7 pg (27.0-33.0); MEAN CORPUSCULAR HGB CONC 34.9 g/dl (32.0-36.5); MEAN CORPUSCULAR VOLUME 87.7 fl (80.0-96.0); MONO # 0.3 K/mm3 (0.0-0.8); NEUTROPHILS # 3.6 K/mm3 (1.8-7.7); NEUTROPHILS % 68.7 % (36.0-66.0); PLATELET COUNT, AUTOMATED 211 k/mm3 (150-450); RED CELL DISTRIBUTION WIDTH 13.4 % (11.5-14.5); WHITE BLOOD COUNT 5.2 K/mm3 (4.0-10.0)
[2016-12-03 06:54] LABS: ANION GAP 10 MEQ/L (8-16); BLOOD UREA NITROGEN 13 MG/DL (7-18); CALCIUM LEVEL 8.6 MG/DL (8.8-10.2); CARBON DIOXIDE LEVEL 26 MEQ/L (21-32); CHLORIDE LEVEL 99 MEQ/L (98-107); CREATININE FOR GFR 0.94 MG/DL (0.70-1.30); GLOMERULAR FILTRATION RATE > 60.0 (>35); GLUCOSE, FASTING 82 MG/DL (83-110); POTASSIUM SERUM 4.1 MEQ/L (3.5-5.1); SODIUM LEVEL 135 MEQ/L (136-145)
[2016-12-03] MEDS: APIXABAN 5 MG TAB (ELIQUIS) PO SCH ×2 (08:43→20:28)
[2016-12-03] MEDS: CLOPIDOGREL 75 MG TAB PO SCH (08:43)
[2016-12-03] MEDS: METOCLOPRAMIDE 5 MG TAB PO SCH ×3 (08:43→20:28)
[2016-12-03] MEDS: ATORVASTATIN 20 MG TAB PO SCH (08:43)
[2016-12-03] MEDS: SENOKOT S TAB PO SCH ×3 (08:44→20:28)
[2016-12-03] MEDS: TIMOLOL MALEATE 0.5% OPHTH SOLN 5 ML OU SCH ×2 (08:44→20:28)
[2016-12-03] MEDS: PANTOPRAZOLE 40MG TAB (PROTONIX) PO SCH ×2 (08:44→20:28)
[2016-12-03] MEDS: VALSARTAN 80 MG TAB (DIOVAN) PO SCH (08:44)
[2016-12-03] MEDS ORDERED: COSYNTROPIN 0.25 MG/ML VIAL (J0835) IV ONE (10:00)
--- NOTE | 2016-12-03 11:44 | IPNPDOC ---
Text Note Date of Service The patient was seen on 12/03/16. NOTE Subjective: Patient is a 86-year-old male admitted with hyponatremia, orthostatic hypotension. Patient says that he is still getting dizzy, lightheadedness with standing. He denies any chest pain/pressure, abdominal pain, nausea, vomiting, diarrhea, constipation, says he rarely gets short of breath. He did express some concern about his Flomax being discontinued, concern about developing urinary retention. Objective: Vital signs: Temperature 97.2, pulse 59, respiratory rate 17, blood pressure 142 /74, pulse ox 97% on room air Gen.: Patient awake, alert and oriented, verbal and able to answer questions appropriately. Patient does not appear to be in any acute distress Heart: Regular rate and rhythm, normal S1-S2. No murmurs, rubs, clicks or gallops Lungs: Clear to auscultation bilaterally. No wheezes, rales or rhonchi Abdomen: Active bowel sounds, soft, nontender, no masses to palpation Extremities: No swelling in either lower extremity Laboratory data: CBC: White blood cells 5.2, hemoglobin and hematocrit 12.0/34.2, platelets 211 Chemistry: Sodium 135, potassium 4.1, chloride 99, Carbon dioxide 26, BUN 13, creatinine 0.94, glucose 82, calcium 8.6 Urine analysis: Color yellow, appearance hazy, pH 5.0, specific gravity 1.017, 0.2 urobilinogen, 1 white blood cell,, 1 red blood cell. Negative for all of the following: Protein, glucose, ketones, blood, nitrites, bilirubin, leukocyte esterase, bacteria and a squamous epithelial cells. Urine osmolality 603, urine sodium 50 Assessment: Patient is a 86-year-old male with orthostatic hypotension and hyponatremia. Patient continues to have orthostatic hypotension, however his hyponatremia is improving. Plan: #1: Orthostatic hypotension: Patient continues to have orthostatic hypotension. At this time we will continue to hold Flomax due to potential for exacerbation of symptoms. Patient is on Eliquis for atrial fibrillation, orthostasis if it resulted in head trauma could be especially dangerous while on Eliquis. 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 Patient is being further evaluated with ACTH level, a.m. cortisol level, cortisol response to cosyntropin. Patient had a normal TSH in October 2016, normal chest CT in November 2016, no further evaluation of either of these necessary. Patient will continue on his fluid restriction of 1.5 L daily. #3: Atrial fibrillation: Patient will continue on Eliquis 5 mg by mouth twice a day #4: Hyperlipidemia: Patient will continue on Lipitor 20 mg by mouth daily #5: Coronary artery disease with history of percutaneous intervention: Patient will continue on Plavix 75 mg by mouth daily #6: BPH: Patient has been taken off of Flomax. If patient does develop difficulties with urination patient can be trialed on finasteride as well as can contribute to orthostatic hypotension it is less likely than with Flomax. #7: DVT prophylaxis: Patient currently on Eliquis 5 mg by mouth twice a day for atrial fibrillation My preceptor for this patient encounter was physically present in the building during the encounter and was fully available. As needed, all aspects of the patient interview, examination, medical decision making process, and medical care plan development were reviewed and approved by the preceptor. Preceptor is aware and concurs with the plan as stated in the body of this note and will attest to such by his/her cosignature VS,Nasra, I+O VS, Nasra, I+O Laboratory Tests 12/02/16 18:09 Calcium Level 8.6 L 12/03/16 05:50 Calcium Level 8.6 L, Red Blood Count 3.90 L, Mean Corpuscular Volume 87.7, Mean Corpuscular Hemoglobin 30.7, Mean Corpuscular Hemoglobin Concent 34.9, Red Cell Distribution Width 13.4, Neutrophils (%) (Auto) 68.7 H, Lymphocytes (%) (Auto) 22.2 L, Monocytes (%) (Auto) 6.0 H, Eosinophils (%) (Auto) 1.4, Basophils (%) ( Auto) 0.2, Neutrophils # (Auto) 3.6, Lymphocytes # (Auto) 1.2 L, Monocytes # ( Auto) 0.3, Eosinophils # (Auto) 0.1, Basophils # (Auto) 0.0 Vital Signs Date Time Temp Pulse Resp B/P Pulse Ox O2 Delivery O2 Flow Rate FiO2 12/03/16 08:44 142/74 12/03/16 05:25 97.2 59 17 97 Room Air I&O- Last 24 Hours up to 6 AM 12/03/16 06:00 Intake Total 1790 ml Output Total 2100 ml Balance -310 ml JASON FAN DO Dec 03, 2016 11:44
[2016-12-03 14:00] VITALS: BP_SYST 103; BP_SYST 130; BP_DIAS 60; BP_DIAS 70; BP_DIAS 72; BP_DIAS 82
--- NOTE | 2016-12-03 17:50 | EDDOCDS ---
Physician Documentation [facility] Name: Yasir Guevara Age: 86 yrs Sex: Male : 1930 Arrival Date: 12/01/2016 Time: 09:13 Bed Admit Hold Private MD: Asad Gill Disposition: 12/01 13:34 Critical Care: Critical care not applicable. pc 13:49 I have independently interviewed and examined the patient, and I agree with the pc investigation, diagnosis and treatment plan as documented by the Resident. Disposition: 12/01/16 13:35 Hospitalization ordered by Nicky Ruiz for Inpatient Admission. Preliminary diagnosis is Orthostatic hypotension. - Bed requested for 4 [place]. - Status is Inpatient Admission. dsf - Condition is Stable. - Problem is new. - Symptoms are unchanged. Historical: - Allergies: no known allergies; - Home Meds: 1. pantoprazole 40 mg oral TbEC 1 tab 2 times per day (Last dose: 12/01/2016 08:30) 2. elequis 5mg twice a day (Last dose: 12/01/2016 08:30) 3. valsartan 320 mg oral tab 0.5 tab once daily (Last dose: 12/01/2016 08:30) 4. amoxicillin-pot clavulanate 875-125 mg Oral tab 1 tab every 12 hours (Last dose: 12/01/2016 08:30) 5. Plavix 75 mg Oral tab 1 tab once daily (Last dose: 12/01/2016 08:30) 6. timolol maleate 0.5 % Opht drpd 1 drop 2 times per day (Last dose: 12/01/2016 08:30) 7. atorvastatin 20 mg oral tab 1 tab once daily (Last dose: 12/01/2016 08:30) 8. tizanidine 4 mg oral tab nightly (Last dose: 11/30/2016) 9. tamsulosin 0.4 mg oral cp24 1 cap once daily (Last dose: 12/01/2016 08:30) - PMHx: A-fib; BPH; CAD; cardiac stent; GERD; Hypercholesterolemia; Hypertension; Sciatica; - PSHx: Cardiac stents; - Social history: Smoking status: Patient states former smoker of tobacco. No barriers to communication noted, The patient speaks fluent Azeri, Speaks appropriately for age. - Family history: Not pertinent. - : The pt / caregiver states he / she is on anticoagulants: Plavix. [facility] Home medication list is obtained from the patient. - Exposure Risk Screening:: None identified. Vital Signs: 09:23 BP 140 / 65; Pulse 66; Resp 18; Temp 96.8(O); Pulse Ox 99% ; Weight 85.73 kg / 189 lbs; srm Height 6 ft. 1 in. (185.42 cm) (R); 11:33 BP 162 / 74 Supine; Pulse 63; Pulse Ox 97% on R/A; dsf 11:33 BP 159 / 75 Sitting; Pulse 62; Pulse Ox 95% on R/A; dsf 11:33 BP 99 / 60 Standing; Pulse 64; Pulse Ox 99% on R/A; dsf 13:03 BP 102 / 67 (auto/); dsf 13:04 Pulse 56 MON; Resp 20; Pulse Ox 98% on R/A; Pain 0/10; dsf 14:42 BP 129 / 58; Pulse 60; Resp 16; Temp 97.7(O); Pulse Ox 97% ; jo3 16:13 BP 130 / 60; Pulse 78; Resp 18; Temp 97.8(O); Pulse Ox 100% on R/A; Pain 0/10; dem1 16:42 BP 146 / 70; Pulse 56; Resp 20; Temp 96.5(O); Pulse Ox 98% on R/A; Pain 0/10; dsf 09:23 Body Mass Index 24.94 (85.73 kg, 185.42 cm) [facility] MDM: 10:54 Orthostatic VS ordered. gk1 10:54 IV Saline Lock ordered. gk1 10:55 ECG WITH READING ER PHYS+CARDIAG ordered. EDMS 10:56 CIP Ordered. EDMS 10:56 Troponin Ordered. EDMS 10:56 Amylase Ordered. EDMS 10:56 Lipase Ordered. EDMS 10:56 CBC with Diff Ordered. EDMS 10:56 Basic Metabolic Profile Ordered. EDMS 10:59 MAGNESIUM LEVEL Ordered. EDMS 11:52 CBC with Diff Reviewed. gk1 12:06 Financial registration complete. lg 12:41 Basic Metabolic Profile Reviewed. pc 12:41 CIP Reviewed. pc 12:41 Troponin Reviewed. pc 12:41 Amylase Reviewed. pc 12:41 Lipase Reviewed. pc 12:41 MAGNESIUM LEVEL Reviewed. pc 13:11 [facility] [place] Payment Agreement was scanned into [employer] and attached to record. lg 13:15 CARDIAC MARKER PANEL Ordered. EDMS 13:16 PHYSICAL THERAPY EVAL & TREAT ordered. EDMS 13:16 Admission / Observation Status ordered. EDMS 13:17 OTHER CUSTOM DIETS ordered. EDMS 13:34 The patient has been re-examined and re-evaluated. There is no appreciated change of pc the patient's symptoms at this time. Physician consultation: Dr. Nicky Ruiz regarding admission. Disposition: The historical points, examination findings, and any diagnostic results supporting the provided diagnosis, were discussed with the patient or legal guardian. The need for further work-up and/or treatment in the hospital was explained. 14:02 Admission / Observation Status ordered. EDMS 14:30 SODIUM,RANDOM URINE Ordered. EDMS 14:30 OSMOLALITY,URINE Ordered. EDMS 21:29 T-Sheet-- Draft Copy was scanned into [employer] and attached to record. klr Signatures: Dispatcher MedHo EDOH Tomas Del Toro MD MD pc Gabriela Henao, [employer] deg Desiree Marie, RN RN Kat Rosario, Reg Reg lg Mery BetheaRN RN Andreea Arzola RN RN [facility] Nabila Jennings Gurpreet, DO 1 The chart was reviewed and I authenticate all verbal orders and agree with the evaluation and treatment provided.Corrections: (The following items were deleted from the chart) 10:58 10:56 MAGNESIUM LEVEL+LAB ordered. EDOH EDMS 14:47 14:42 URIC ACID ordered. EDOH EDMS Attachments: 13:11 [facility] [place] [place] Payment Agreement lg 21:29 T-Sheet-- Draft Copy klr Chart Complete MTDD
--- NOTE | 2016-12-03 17:50 | EDDOCDS ---
Nurse's Notes [facility] Name: Yasir Guevara Age: 86 yrs Sex: Male : 1930 Arrival Date: 12/01/2016 Time: 09:13 Bed Admit Hold Private MD: Asad Gill Diagnosis: Orthostatic hypotension Presentation: 12/01 09:18 Presenting complaint: Patient states: hx diverticulitis in past 5-6 weeks. saw [facility] for off and on chest pain. nausea and stomach pain. chest pain and SOB "now and again". Adult Sepsis Screening: The patient does not have new or worsening altered mentation. Suicide/Homicide risk assessment- the patient denies having any suicidal and/or homicidal ideations and does not present with any other emotional, behavioral or mental health complaints. Status: Patient is not a pharmacy tech customer service or dependent. Transition of care: patient was not received from another setting of care. 09:18 Acuity: ELIER Level 3 [facility] 09:18 Method Of Arrival: Wheelchair [facility] 09:26 Adult Sepsis Screening: Systolic blood pressure is greater than 100. Patient has a [facility] qSOFA score of 0- Negative Sepsis Screen. Triage Assessment: 09:23 General: Appears in no apparent distress, Behavior is appropriate for age, cooperative. [facility] Pain: Location: epigastric Pain currently is 5 out of 10 on a pain scale. Historical: - Allergies: no known allergies; - Home Meds: 1. pantoprazole 40 mg oral TbEC 1 tab 2 times per day (Last dose: 12/01/2016 08:30) 2. elequis 5mg twice a day (Last dose: 12/01/2016 08:30) 3. valsartan 320 mg oral tab 0.5 tab once daily (Last dose: 12/01/2016 08:30) 4. amoxicillin-pot clavulanate 875-125 mg Oral tab 1 tab every 12 hours (Last dose: 12/01/2016 08:30) 5. Plavix 75 mg Oral tab 1 tab once daily (Last dose: 12/01/2016 08:30) 6. timolol maleate 0.5 % Opht drpd 1 drop 2 times per day (Last dose: 12/01/2016 08:30) 7. atorvastatin 20 mg oral tab 1 tab once daily (Last dose: 12/01/2016 08:30) 8. tizanidine 4 mg oral tab nightly (Last dose: 11/30/2016) 9. tamsulosin 0.4 mg oral cp24 1 cap once daily (Last dose: 12/01/2016 08:30) - PMHx: A-fib; BPH; CAD; cardiac stent; GERD; Hypercholesterolemia; Hypertension; Sciatica; - PSHx: Cardiac stents; - Social history: Smoking status: Patient states former smoker of tobacco. No barriers to communication noted, The patient speaks fluent Hungarian, Speaks appropriately for age. - Family history: Not pertinent. - : The pt / caregiver states he / she is on anticoagulants: Plavix. [employer] Home medication list is obtained from the patient. - Exposure Risk Screening:: None identified. Screenin:13 Screening information is obtained from the patient. Fall risk: No risks identified. ml6 Assistance ADL's: requires no assistance with activities of daily living. Abuse/DV Screen: The patient / caregiver reports he/she is: not in a situation that causes fear, pain or injury. Nutritional screening: No deficits noted. Advance Directives: Currently, there is no health care proxy. home support is adequate. Assessment: 10:00 General: Appears in no apparent distress, Behavior is anxious, cooperative. Pain: ml6 Denies pain. Neurological: No deficits noted. Level of Consciousness is awake, alert, Oriented to person, place, time. Cardiovascular: No deficits noted. Capillary refill < 3 seconds is brisk in bilateral fingers toes Heart tones S1 S2 present. Respiratory: No deficits noted. Airway is patent Respiratory effort is even, unlabored, Respiratory pattern is regular, symmetrical, Breath sounds are clear bilaterally. GI: Abdomen is flat, non- distended Bowel sounds present X 4 quads. Abd is soft and non tender X 4 quads. Reports nausea, Denies diarrhea, vomiting, pain. 11:34 Adult Sepsis Screening: The patient does not have new or worsening altered mentation. dsf Patient's respiratory rate is less than 22. Systolic blood pressure is less than or equal to 100 (1 point). Patient has a qSOFA score of 1- Negative Sepsis Screen. General: Appears in no apparent distress, comfortable, Behavior is appropriate for age, cooperative. Pain: Denies pain. Neurological: Level of Consciousness is awake, alert. Cardiovascular: Capillary refill < 3 seconds Heart tones S1 S2 present. Respiratory: Airway is patent Respiratory effort is even, unlabored, Respiratory pattern is regular, symmetrical, Breath sounds are clear bilaterally. GI: Abdomen is non- distended Bowel sounds present X 4 quads. Abd is soft and non tender X 4 quads. Derm: Skin is pink, warm & dry. 12:34 General: Appears in no apparent distress, Behavior is appropriate for age, cooperative. dsf Neurological: Level of Consciousness is awake, alert. Cardiovascular: Capillary refill < 3 seconds. Respiratory: Airway is patent Respiratory effort is even, unlabored, Respiratory pattern is regular, symmetrical. Derm: Skin is pink, warm & dry. 13:34 General: Appears in no apparent distress, comfortable, Behavior is appropriate for age, dsf cooperative. Pain: Denies pain. Neurological: Level of Consciousness is awake, alert. Cardiovascular: Capillary refill < 3 seconds. Respiratory: Airway is patent Respiratory effort is even, unlabored, Respiratory pattern is regular, symmetrical. Derm: Skin is pink, warm & dry. 13:55 General: Dr. Ruiz in examining patient . dsf 14:00 Adult Sepsis Screening: The patient does not have new or worsening altered mentation. dsf Patient's respiratory rate is less than 22. Systolic blood pressure is greater than 100. Patient has a qSOFA score of 0- Negative Sepsis Screen. General: Appears in no apparent distress, comfortable, Behavior is appropriate for age, cooperative. Pain: Denies pain. Neurological: Level of Consciousness is awake, alert, Oriented to person, place, time. Cardiovascular: Capillary refill < 3 seconds Heart tones S1 S2 present. Respiratory: Airway is patent Respiratory effort is even, unlabored, Respiratory pattern is regular, symmetrical, Breath sounds are clear bilaterally. GI: Abdomen is non- distended Bowel sounds present X 4 quads. Abd is soft and non tender X 4 quads. Derm: Skin is pink, warm & dry. 15:00 General: Appears in no apparent distress, comfortable, Behavior is appropriate for age, dsf cooperative. Neurological: Level of Consciousness is awake, alert. Cardiovascular: No deficits noted. Respiratory: No deficits noted. Derm: Skin is pink, warm & dry. 16:06 Adult Sepsis Screening: The patient does not have new or worsening altered mentation. dsf Patient's respiratory rate is less than 22. Systolic blood pressure is greater than 100. Patient has a qSOFA score of 0- Negative Sepsis Screen. General: Appears in no apparent distress, comfortable, Behavior is appropriate for age, cooperative. Pain: Denies pain. Neurological: Level of Consciousness is awake, alert, Oriented to person, place, time. Cardiovascular: Capillary refill < 3 seconds. Respiratory: Airway is patent Respiratory effort is even, unlabored, Respiratory pattern is regular, symmetrical. Derm: Skin is pink, warm & dry. 16:45 General: Appears in no apparent distress, comfortable, Behavior is appropriate for age, dsf cooperative. Pain: Denies pain. Neurological: Level of Consciousness is awake, alert, Oriented to person, place, time. Cardiovascular: Capillary refill < 3 seconds. Respiratory: Airway is patent Respiratory effort is even, unlabored, Respiratory pattern is regular, symmetrical. Derm: Skin is pink, warm & dry. Vital Signs: 09:23 BP 140 / 65; Pulse 66; Resp 18; Temp 96.8(O); Pulse Ox 99% ; Weight 85.73 kg; Height 6 [facility] ft. 1 in. (185.42 cm) (R); 11:33 BP 162 / 74 Supine; Pulse 63; Pulse Ox 97% on R/A; dsf 11:33 BP 159 / 75 Sitting; Pulse 62; Pulse Ox 95% on R/A; dsf 11:33 BP 99 / 60 Standing; Pulse 64; Pulse Ox 99% on R/A; dsf 13:03 BP 102 / 67 (auto/); dsf 13:04 Pulse 56 MON; Resp 20; Pulse Ox 98% on R/A; Pain 0/10; dsf 14:42 BP 129 / 58; Pulse 60; Resp 16; Temp 97.7(O); Pulse Ox 97% ; jo3 16:13 BP 130 / 60; Pulse 78; Resp 18; Temp 97.8(O); Pulse Ox 100% on R/A; Pain 0/10; dem1 16:42 BP 146 / 70; Pulse 56; Resp 20; Temp 96.5(O); Pulse Ox 98% on R/A; Pain 0/10; dsf 09:23 Body Mass Index 24.94 (85.73 kg, 185.42 cm) [facility] Vitals: 09:23 Log In Time: December 01, 2016 at 09:11. [facility] ED Course: 09:17 Patient visited by Kat Mendoza Reg. lg 09:17 GillAsadreuben is Private Physician. lg 09:17 Patient moved to Waiting lg 09:19 Triage Initiated srm 09:22 Patient moved to Triage 2 [facility] 09:26 Jenna Martini RN is Primary Nurse. srm 09:26 Rex Emmanuel RN is Primary Nurse. srm 09:26 Patient moved to 8 srm 09:35 Primary Nurse role handed off by Jenna Martini RN pc 09:41 Aaron Sherman DO is PHCP. gk1 09:41 Tomas Del Toro MD is Attending Physician. gk1 09:41 Patient visited by Aaron Sherman DO. gk1 09:41 Patient visited by Aaron Sherman DO. gk1 10:16 Patient visited by Rex Emmanuel RN. ml6 10:40 Patient visited by Rex Emmanuel RN. ml6 11:01 EKG done. (by ED staff). Reviewed by Tomas Del Toro MD. dem1 11:05 Patient visited by Shaun Cruz. dem1 11:13 The patient / caregiver is instructed regarding the plan of care and ED course. ml6 11:34 Patient visited by Mery Bethea RN. dsf 11:34 Inserted saline lock: 20 gauge in right antecubital area The patient tolerated the dsf procedure well. 11:35 Patient visited by Mery Bethea RN. dsf 12:49 Patient visited by Mery Bethae RN. dsf 13:10 Patient name changed from Yasir\\S\\\\S\\[place]\\S\\ to Yasir\\S\\ \\S\\[place]. EDMS 13:11 [facility] Payment Agreement was scanned into [employer] and attached to record. lg 13:35 Nicky Ruiz is Hospitalizing Provider. pc 13:40 Patient moved to Admit Hold [id number] 14:01 Patient visited by Mery Bethea RN. dsf 15:24 No procedures done that require assistance. dsf 15:26 Patient visited by Mery Bethea RN. dsf 16:13 Patient visited by Shaun Cruz. dem1 21:29 T-Sheet-- Draft Copy was scanned into [employer] and attached to record. klr Order Results: Lab Order: CIP; SPEC 12/01/16 11:01 Test: CPK CREATINE PHOSPHOKINASE; Value: 89; Range: 39-308; Units: U/L; Status: F Test: CK-MB VALUE MASS; Value: 2.2; Range: 0.0-3.6; Units: NG/ML; Status: F Test: MB/CK RELATIVE INDEX; Value: 2.47; Range: < OR =4; Status: F Test Note: ; DIAGNOSIS CRITERIA MMB ng/ml Relative Index (RI) NON-AMI < or = 5 N/A CA ZONE > 5 < or = 4 AMI > 5 > 4 Lab Order: Troponin; [facility] 11:01 Test: TROPONIN I; Value: < 0.02; Range: < 0.10; Units: NG/ML; Status: F Test Note: ; Troponin I Reference Interval for [place] LOCI: 99th Percentile= 0.00-0.045 ng/ml Risk Stratification: <= 0.10 ng/ml Decreased Risk for Adverse Clinical Events. 0.10-1.50 ng/ml Increased Risk for Adverse Clinical Events. Evaluation of additional criterion and/or repeat testing in 2-6 hours is suggested to rule out myocardial damage. >= 1.50 ng/ml Indicative of Myocardial Injury. Lab Order: Amylase; [facility]12/01[facility] 11:01 Test: AMYLASE; Value: 31; Range: 25-115; Units: U/L; Status: F Lab Order: Lipase; [facility] 12/01/16 11:01 Test: LIPASE; Value: 165; Range: 73-393; Units: U/L; Status: F Lab Order: CBC with Diff; [facility] 12/01/16 11:01 Test: WHITE BLOOD COUNT; Value: 6.4; Range: 4.0-10.0; Units: K/mm3; Status: F Test: RED BLOOD COUNT; Value: 4.05; Range: 4.30-6.10; Abnormal: Below low normal; Units: M/mm3; Status: F Test: HEMOGLOBIN; Value: 12.5; Range: 14.0-18.0; Abnormal: Below low normal; Units: g/dl; Status: F Test: HEMATOCRIT; Value: 35.4; Range: 42.0-52.0; Abnormal: Below low normal; Units: %; Status: F Test: MEAN CORPUSCULAR VOLUME; Value: 87.5; Range: 80.0-96.0; Units: fl; Status: F Test: MEAN CORPUSCULAR HEMOGLOBIN; Value: 30.9; Range: 27.0-33.0; Units: pg; Status: F Test: MEAN CORPUSCULAR HGB CONC; Value: 35.3; Range: 32.0-36.5; Units: g/dl; Status: F Test: RED CELL DISTRIBUTION WIDTH; Value: 13.4; Range: 11.5-14.5; Units: %; Status: F Test: PLATELET COUNT, AUTOMATED; Value: 227; Range: 150-450; Units: k/mm3; Status: F Test: NEUTROPHILS %; Value: 71.2; Range: 36.0-66.0; Abnormal: Above high normal; Units: %; Status: F Test: LYMPH %; Value: 18.1; Range: 24.0-44.0; Abnormal: Below low normal; Units: %; Status: F Test: MONO %; Value: 6.1; Range: 0.0-5.0; Abnormal: Above high normal; Units: %; Status: F Test: EOS %; Value: 2.8; Range: 0.0-3.0; Units: %; Status: F Test: BASO %; Value: 0.4; Range: 0.0-1.0; Units: %; Status: F Test: LARGE UNSTAINED CELL %; Value: 1.3; Range: 0.0-4.0; Units: %; Status: F Test: NEUTROPHILS #; Value: 4.6; Range: 1.8-7.7; Units: K/mm3; Status: F Test: LYMPH #; Value: 1.3; Range: 1.5-4.5; Abnormal: Below low normal; Units: K/mm3; Status: F Test: MONO #; Value: 0.4; Range: 0.0-0.8; Units: K/mm3; Status: F Test: EOS #; Value: 0.2; Range: 0.0-0.50; Units: K/mm3; Status: F Test: BASO #; Value: 0.0; Range: 0.0-0.2; Units: K/mm3; Status: F Test: LARGE UNSTAINED CELL #; Value: 0.1; Range: 0.0-0.4; Units: K/mm3; Status: F Lab Order: Basic Metabolic Profile; [facility] 12/01/16 11:01 Test: GLUCOSE, FASTING; Value: 84; Range: 83-110; Units: MG/DL; Status: F Test: BLOOD UREA NITROGEN; Value: 10; Range: 7-18; Units: MG/DL; Status: F Test: CREATININE FOR GFR; Value: 0.84; Range: 0.70-1.30; Units: MG/DL; Status: F Test: GLOMERULAR FILTRATION RATE; Value: > 60.0; Range: >35; Status: F Test: SODIUM LEVEL; Value: 129; Range: 136-145; Abnormal: Below low normal; Units: MEQ/L; Status: F Test: POTASSIUM SERUM; Value: 4.1; Range: 3.5-5.1; Units: MEQ/L; Status: F Test: CHLORIDE LEVEL; Value: 95; Range: 98-107; Abnormal: Below low normal; Units: MEQ/L; Status: F Test: CARBON DIOXIDE LEVEL; Value: 27; Range: 21-32; Units: MEQ/L; Status: F Test: ANION GAP; Value: 7; Range: 8-16; Abnormal: Below low normal; Units: MEQ/L; Status: F Test: CALCIUM LEVEL; Value: 8.5; Range: 8.8-10.2; Abnormal: Below low normal; Units: MG/DL; Status: F Test Note: ; Units are mL/min/1.73 m2 Chronic Kidney Disease Staging per NKF: Stage I & II GFR >=60 Normal to Mildly Decreased Stage III GFR 30-59 Moderately Decreased Stage IV GFR 15-29 Severely Decreased Stage V GFR <15 Very Little GFR Left ESRD GFR <15 on CHEMISTRY ASSOCIATE Lab Order: MAGNESIUM LEVEL; [facility]12/[facility] 11:01 Test: MAGNESIUM LEVEL; Value: 2.1; Range: 1.8-2.4; Units: MG/DL; Status: F Lab Order: URIC ACID; 12/01/16 11:01 Test: URIC ACID; Value: 3.1; Range: 3.5-7.2; Abnormal: Below low normal; Units: MG/DL; Status: F Outcome: 13:35 Decision to Hospitalize by Provider. pc 15:24 No special radiology studies were completed. dsf 15:26 Discharge Assessment: Patient awake, alert and oriented x 3. No cognitive and/or dsf functional deficits noted. Patient verbalized understanding of disposition instructions. patient administered narcotics - no. 15:46 Admission hand-off: Report Faxed Fax receipt verified by PCU nurse. dsf 15:47 The following High Risk Discharge criteria are identified: None. dsf 16:06 Condition: stable. Property :Personal belongings accompany Pt. dsf 16:45 Admitted to Med/Surg accompanied by tech, family with patient, via wheelchair, with dsf chart. 16:49 Patient left the ED. dsf Signatures: Dispatcher [employer] EDMS Tomas Del Toro MD MD pc Jobson, Karen, RN RN Desiree Espinosa, RN Kat Nails, Mikel Morin Merna SenaRN Rex Hernadez RN RN Mery TanRN RN Shaun Salazar Jennifer,RN RN [id number] Nabila Jennings Gurpreet, DO DO 1 Corrections: (The following items were deleted from the chart) 14:43 14:42 Temp 97.7F Oral; joJoanie joJoanie 16:45 16:06 Admitted to PCU accompanied by nurse, accompanied by tech, via stretcher, on dsf monitor, dsf Chart Complete MTDD
--- NOTE | 2016-12-03 17:50 | EDDOCDS ---
Physician Documentation [facility] Name: Yasir Guevara Age: 86 yrs Sex: Male : 1930 Arrival Date: 12/01/2016 Time: 09:13 Bed Admit Hold Private MD: Asad Gill Disposition: 12/01 13:34 Critical Care: Critical care not applicable. pc 13:49 I have independently interviewed and examined the patient, and I agree with the pc investigation, diagnosis and treatment plan as documented by the Resident. Disposition: 12/01/16 13:35 Hospitalization ordered by Nicky Ruiz for Inpatient Admission. Preliminary diagnosis is Orthostatic hypotension. - Bed requested for 4 Lotus. - Status is Inpatient Admission. dsf - Condition is Stable. - Problem is new. - Symptoms are unchanged. Historical: - Allergies: no known allergies; - Home Meds: 1. pantoprazole 40 mg oral TbEC 1 tab 2 times per day (Last dose: 12/01/2016 08:30) 2. elequis 5mg twice a day (Last dose: 12/01/2016 08:30) 3. valsartan 320 mg oral tab 0.5 tab once daily (Last dose: 12/01/2016 08:30) 4. amoxicillin-pot clavulanate 875-125 mg Oral tab 1 tab every 12 hours (Last dose: 12/01/2016 08:30) 5. Plavix 75 mg Oral tab 1 tab once daily (Last dose: 12/01/2016 08:30) 6. timolol maleate 0.5 % Opht drpd 1 drop 2 times per day (Last dose: 12/01/2016 08:30) 7. atorvastatin 20 mg oral tab 1 tab once daily (Last dose: 12/01/2016 08:30) 8. tizanidine 4 mg oral tab nightly (Last dose: 11/30/2016) 9. tamsulosin 0.4 mg oral cp24 1 cap once daily (Last dose: 12/01/2016 08:30) - PMHx: A-fib; BPH; CAD; cardiac stent; GERD; Hypercholesterolemia; Hypertension; Sciatica; - PSHx: Cardiac stents; - Social history: Smoking status: Patient states former smoker of tobacco. No barriers to communication noted, The patient speaks fluent Bulgarian, Speaks appropriately for age. - Family history: Not pertinent. - : The pt / caregiver states he / she is on anticoagulants: Plavix. [facility] Home medication list is obtained from the patient. - Exposure Risk Screening:: None identified. Vital Signs: 09:23 BP 140 / 65; Pulse 66; Resp 18; Temp 96.8(O); Pulse Ox 99% ; Weight 85.73 kg / 189 lbs; srm Height 6 ft. 1 in. (185.42 cm) (R); 11:33 BP 162 / 74 Supine; Pulse 63; Pulse Ox 97% on R/A; dsf 11:33 BP 159 / 75 Sitting; Pulse 62; Pulse Ox 95% on R/A; dsf 11:33 BP 99 / 60 Standing; Pulse 64; Pulse Ox 99% on R/A; dsf 13:03 BP 102 / 67 (auto/); dsf 13:04 Pulse 56 MON; Resp 20; Pulse Ox 98% on R/A; Pain 0/10; dsf 14:42 BP 129 / 58; Pulse 60; Resp 16; Temp 97.7(O); Pulse Ox 97% ; jo3 16:13 BP 130 / 60; Pulse 78; Resp 18; Temp 97.8(O); Pulse Ox 100% on R/A; Pain 0/10; dem1 16:42 BP 146 / 70; Pulse 56; Resp 20; Temp 96.5(O); Pulse Ox 98% on R/A; Pain 0/10; dsf 09:23 Body Mass Index 24.94 (85.73 kg, 185.42 cm) [facility] MDM: 10:54 Orthostatic VS ordered. gk1 10:54 IV Saline Lock ordered. gk1 10:55 ECG WITH READING ER PHYS+CARDIAG ordered. EDMS 10:56 CIP Ordered. EDMS 10:56 Troponin Ordered. EDMS 10:56 Amylase Ordered. EDMS 10:56 Lipase Ordered. EDMS 10:56 CBC with Diff Ordered. EDMS 10:56 Basic Metabolic Profile Ordered. EDMS 10:59 MAGNESIUM LEVEL Ordered. EDMS 11:52 CBC with Diff Reviewed. gk1 12:06 Financial registration complete. lg 12:41 Basic Metabolic Profile Reviewed. pc 12:41 CIP Reviewed. pc 12:41 Troponin Reviewed. pc 12:41 Amylase Reviewed. pc 12:41 Lipase Reviewed. pc 12:41 MAGNESIUM LEVEL Reviewed. pc 13:11 [facility] Payment Agreement was scanned into [employer] and attached to record. lg 13:15 CARDIAC MARKER PANEL Ordered. EDMS 13:16 PHYSICAL THERAPY EVAL & TREAT ordered. EDMS 13:16 Admission / Observation Status ordered. EDMS 13:17 OTHER CUSTOM DIETS ordered. EDMS 13:34 The patient has been re-examined and re-evaluated. There is no appreciated change of pc the patient's symptoms at this time. Physician consultation: Dr. Nicky Ruiz regarding admission. Disposition: The historical points, examination findings, and any diagnostic results supporting the provided diagnosis, were discussed with the patient or legal guardian. The need for further work-up and/or treatment in the hospital was explained. 14:02 Admission / Observation Status ordered. EDMS 14:30 SODIUM,RANDOM URINE Ordered. EDMS 14:30 OSMOLALITY,URINE Ordered. EDMS 21:29 T-Sheet-- Draft Copy was scanned into [employer] and attached to record. klr Signatures: Dispatcher [employer] EDKS Tomas Del Toro MD MD pc Gabriela Henao, Heat Treat Inspector Unit deg Desiree Marie, RN RN Kat Rosario, Reg Reg lg Mery BetheaRN RN Andreea Arzola RN RN [facility] Nabila Jennings Gurpreet, DO 1 The chart was reviewed and I authenticate all verbal orders and agree with the evaluation and treatment provided.Corrections: (The following items were deleted from the chart) 10:58 10:56 MAGNESIUM LEVEL+LAB ordered. EDKS EDMS 14:47 14:42 URIC ACID ordered. EDKS EDMS Attachments: 13:11 [facility] Payment Agreement lg 21:29 T-Sheet-- Draft Copy klr Chart Complete MTDD
[2016-12-03 20:00] VITALS: BP_SYST 161; BP_SYST 162; BP_SYST 186; BP_DIAS 77; BP_DIAS 88; BP_DIAS 89
[2016-12-03 20:15] VITALS: BP 186/88
[2016-12-03] MEDS: ACETAMINOPHEN TAB 650MG DOSE (2X325MG) PO PRN (20:29)
--- NOTE | 2016-12-03 20:51 | EDDOCDS ---
Physician Documentation [facility] Name: Yasir Guevara Age: 86 yrs Sex: Male : 1930 Arrival Date: 12/01/2016 Time: 09:13 Bed Admit Hold Private MD: Asad Gill Disposition: 12/01 13:34 Critical Care: Critical care not applicable. pc 13:49 I have independently interviewed and examined the patient, and I agree with the pc investigation, diagnosis and treatment plan as documented by the Resident. Disposition: 12/01/16 13:35 Hospitalization ordered by Nicky Ruiz for Inpatient Admission. Preliminary diagnosis is Orthostatic hypotension. - Bed requested for 4 [place]. - Status is Inpatient Admission. dsf - Condition is Stable. - Problem is new. - Symptoms are unchanged. Historical: - Allergies: no known allergies; - Home Meds: 1. pantoprazole 40 mg oral TbEC 1 tab 2 times per day (Last dose: 12/01/2016 08:30) 2. elequis 5mg twice a day (Last dose: 12/01/2016 08:30) 3. valsartan 320 mg oral tab 0.5 tab once daily (Last dose: 12/01/2016 08:30) 4. amoxicillin-pot clavulanate 875-125 mg Oral tab 1 tab every 12 hours (Last dose: 12/01/2016 08:30) 5. Plavix 75 mg Oral tab 1 tab once daily (Last dose: 12/01/2016 08:30) 6. timolol maleate 0.5 % Opht drpd 1 drop 2 times per day (Last dose: 12/01/2016 08:30) 7. atorvastatin 20 mg oral tab 1 tab once daily (Last dose: 12/01/2016 08:30) 8. tizanidine 4 mg oral tab nightly (Last dose: 11/30/2016) 9. tamsulosin 0.4 mg oral cp24 1 cap once daily (Last dose: 12/01/2016 08:30) - PMHx: A-fib; BPH; CAD; cardiac stent; GERD; Hypercholesterolemia; Hypertension; Sciatica; - PSHx: Cardiac stents; - Social history: Smoking status: Patient states former smoker of tobacco. No barriers to communication noted, The patient speaks fluent Frisian, Speaks appropriately for age. - Family history: Not pertinent. - : The pt / caregiver states he / she is on anticoagulants: Plavix. [facility] Home medication list is obtained from the patient. - Exposure Risk Screening:: None identified. Vital Signs: 09:23 BP 140 / 65; Pulse 66; Resp 18; Temp 96.8(O); Pulse Ox 99% ; Weight 85.73 kg / 189 lbs; srm Height 6 ft. 1 in. (185.42 cm) (R); 11:33 BP 162 / 74 Supine; Pulse 63; Pulse Ox 97% on R/A; dsf 11:33 BP 159 / 75 Sitting; Pulse 62; Pulse Ox 95% on R/A; dsf 11:33 BP 99 / 60 Standing; Pulse 64; Pulse Ox 99% on R/A; dsf 13:03 BP 102 / 67 (auto/); dsf 13:04 Pulse 56 MON; Resp 20; Pulse Ox 98% on R/A; Pain 0/10; dsf 14:42 BP 129 / 58; Pulse 60; Resp 16; Temp 97.7(O); Pulse Ox 97% ; jo3 16:13 BP 130 / 60; Pulse 78; Resp 18; Temp 97.8(O); Pulse Ox 100% on R/A; Pain 0/10; dem1 16:42 BP 146 / 70; Pulse 56; Resp 20; Temp 96.5(O); Pulse Ox 98% on R/A; Pain 0/10; dsf 09:23 Body Mass Index 24.94 (85.73 kg, 185.42 cm) [facility] MDM: 10:54 Orthostatic VS ordered. gk1 10:54 IV Saline Lock ordered. gk1 10:55 ECG WITH READING ER PHYS+CARDIAG ordered. EDMS 10:56 CIP Ordered. EDMS 10:56 Troponin Ordered. EDMS 10:56 Amylase Ordered. EDMS 10:56 Lipase Ordered. EDMS 10:56 CBC with Diff Ordered. EDMS 10:56 Basic Metabolic Profile Ordered. EDMS 10:59 MAGNESIUM LEVEL Ordered. EDMS 11:52 CBC with Diff Reviewed. gk1 12:06 Financial registration complete. lg 12:41 Basic Metabolic Profile Reviewed. pc 12:41 CIP Reviewed. pc 12:41 Troponin Reviewed. pc 12:41 Amylase Reviewed. pc 12:41 Lipase Reviewed. pc 12:41 MAGNESIUM LEVEL Reviewed. pc 13:11 [facility] Payment Agreement was scanned into [employer] and attached to record. lg 13:15 CARDIAC MARKER PANEL Ordered. EDMS 13:16 PHYSICAL THERAPY EVAL & TREAT ordered. EDMS 13:16 Admission / Observation Status ordered. EDMS 13:17 OTHER CUSTOM DIETS ordered. EDMS 13:34 The patient has been re-examined and re-evaluated. There is no appreciated change of pc the patient's symptoms at this time. Physician consultation: Dr. Nicky Ruiz regarding admission. Disposition: The historical points, examination findings, and any diagnostic results supporting the provided diagnosis, were discussed with the patient or legal guardian. The need for further work-up and/or treatment in the hospital was explained. 14:02 Admission / Observation Status ordered. EDMS 14:30 SODIUM,RANDOM URINE Ordered. EDMS 14:30 OSMOLALITY,URINE Ordered. EDMS 21:29 T-Sheet-- Draft Copy was scanned into [employer] and attached to record. klr Signatures: Dispatcher MedHo EDCO Tomas Del Toro MD MD pc Gabriela Henao, Cashier Ticket Selling Unit deg Desiree Marie, RN RN Kat Rosario, Reg Reg lg Mery BetheaRN RN Andreea Arzola RN RN [facility] Nabila Jennings Gurpreet, DO 1 The chart was reviewed and I authenticate all verbal orders and agree with the evaluation and treatment provided.Corrections: (The following items were deleted from the chart) 10:58 10:56 MAGNESIUM LEVEL+LAB ordered. EDCO EDMS 14:47 14:42 URIC ACID ordered. EDCO EDMS Attachments: 13:11 [facility] Payment Agreement lg 21:29 T-Sheet-- Draft Copy klr Chart Complete MTDD
--- NOTE | 2016-12-03 20:51 | EDDOCDS ---
Physician Documentation [facility] Name: Yasir Guevara Age: 86 yrs Sex: Male : 1930 Arrival Date: 12/01/2016 Time: 09:13 Bed Admit Hold Private MD: Asad Gill Disposition: 12/01 13:34 Critical Care: Critical care not applicable. pc 13:49 I have independently interviewed and examined the patient, and I agree with the pc investigation, diagnosis and treatment plan as documented by the Resident. Disposition: 12/01/16 13:35 Hospitalization ordered by Nicky Ruiz for Inpatient Admission. Preliminary diagnosis is Orthostatic hypotension. - Bed requested for 4 [place]. - Status is Inpatient Admission. dsf - Condition is Stable. - Problem is new. - Symptoms are unchanged. Historical: - Allergies: no known allergies; - Home Meds: 1. pantoprazole 40 mg oral TbEC 1 tab 2 times per day (Last dose: 12/01/2016 08:30) 2. elequis 5mg twice a day (Last dose: 12/01/2016 08:30) 3. valsartan 320 mg oral tab 0.5 tab once daily (Last dose: 12/01/2016 08:30) 4. amoxicillin-pot clavulanate 875-125 mg Oral tab 1 tab every 12 hours (Last dose: 12/01/2016 08:30) 5. Plavix 75 mg Oral tab 1 tab once daily (Last dose: 12/01/2016 08:30) 6. timolol maleate 0.5 % Opht drpd 1 drop 2 times per day (Last dose: 12/01/2016 08:30) 7. atorvastatin 20 mg oral tab 1 tab once daily (Last dose: 12/01/2016 08:30) 8. tizanidine 4 mg oral tab nightly (Last dose: 11/30/2016) 9. tamsulosin 0.4 mg oral cp24 1 cap once daily (Last dose: 12/01/2016 08:30) - PMHx: A-fib; BPH; CAD; cardiac stent; GERD; Hypercholesterolemia; Hypertension; Sciatica; - PSHx: Cardiac stents; - Social history: Smoking status: Patient states former smoker of tobacco. No barriers to communication noted, The patient speaks fluent Pashto, Speaks appropriately for age. - Family history: Not pertinent. - : The pt / caregiver states he / she is on anticoagulants: Plavix. [facility] Home medication list is obtained from the patient. - Exposure Risk Screening:: None identified. Vital Signs: 09:23 BP 140 / 65; Pulse 66; Resp 18; Temp 96.8(O); Pulse Ox 99% ; Weight 85.73 kg / 189 lbs; srm Height 6 ft. 1 in. (185.42 cm) (R); 11:33 BP 162 / 74 Supine; Pulse 63; Pulse Ox 97% on R/A; dsf 11:33 BP 159 / 75 Sitting; Pulse 62; Pulse Ox 95% on R/A; dsf 11:33 BP 99 / 60 Standing; Pulse 64; Pulse Ox 99% on R/A; dsf 13:03 BP 102 / 67 (auto/); dsf 13:04 Pulse 56 MON; Resp 20; Pulse Ox 98% on R/A; Pain 0/10; dsf 14:42 BP 129 / 58; Pulse 60; Resp 16; Temp 97.7(O); Pulse Ox 97% ; jo3 16:13 BP 130 / 60; Pulse 78; Resp 18; Temp 97.8(O); Pulse Ox 100% on R/A; Pain 0/10; dem1 16:42 BP 146 / 70; Pulse 56; Resp 20; Temp 96.5(O); Pulse Ox 98% on R/A; Pain 0/10; dsf 09:23 Body Mass Index 24.94 (85.73 kg, 185.42 cm) [facility] MDM: 10:54 Orthostatic VS ordered. gk1 10:54 IV Saline Lock ordered. gk1 10:55 ECG WITH READING ER PHYS+CARDIAG ordered. EDMS 10:56 CIP Ordered. EDMS 10:56 Troponin Ordered. EDMS 10:56 Amylase Ordered. EDMS 10:56 Lipase Ordered. EDMS 10:56 CBC with Diff Ordered. EDMS 10:56 Basic Metabolic Profile Ordered. EDMS 10:59 MAGNESIUM LEVEL Ordered. EDMS 11:52 CBC with Diff Reviewed. gk1 12:06 Financial registration complete. lg 12:41 Basic Metabolic Profile Reviewed. pc 12:41 CIP Reviewed. pc 12:41 Troponin Reviewed. pc 12:41 Amylase Reviewed. pc 12:41 Lipase Reviewed. pc 12:41 MAGNESIUM LEVEL Reviewed. pc 13:11 [facility] Payment Agreement was scanned into [employer] and attached to record. lg 13:15 CARDIAC MARKER PANEL Ordered. EDMS 13:16 PHYSICAL THERAPY EVAL & TREAT ordered. EDMS 13:16 Admission / Observation Status ordered. EDMS 13:17 OTHER CUSTOM DIETS ordered. EDMS 13:34 The patient has been re-examined and re-evaluated. There is no appreciated change of pc the patient's symptoms at this time. Physician consultation: Dr. Nicky Ruiz regarding admission. Disposition: The historical points, examination findings, and any diagnostic results supporting the provided diagnosis, were discussed with the patient or legal guardian. The need for further work-up and/or treatment in the hospital was explained. 14:02 Admission / Observation Status ordered. EDMS 14:30 SODIUM,RANDOM URINE Ordered. EDMS 14:30 OSMOLALITY,URINE Ordered. EDMS 21:29 T-Sheet-- Draft Copy was scanned into [employer] and attached to record. klr Signatures: Dispatcher Med[employer] EDID Tomas Del Toro MD MD pc Gabriela Henao, Snubber Unit deg Desiree Marie, RN RN Kat Rosario, Reg Reg lg Mery BetheaRN RN Andreea Arzola RN RN [facility] Nabila Jennings Gurpreet, DO 1 The chart was reviewed and I authenticate all verbal orders and agree with the evaluation and treatment provided.Corrections: (The following items were deleted from the chart) 10:58 10:56 MAGNESIUM LEVEL+LAB ordered. EDID EDMS 14:47 14:42 URIC ACID ordered. EDID EDMS Attachments: 13:11 [facility] Payment Agreement lg 21:29 T-Sheet-- Draft Copy klr Chart Complete MTDD
--- NOTE | 2016-12-03 20:52 | EDDOCDS ---
Nurse's Notes [facility] Name: Yasir Guevara Age: 86 yrs Sex: Male : 1930 Arrival Date: 12/01/2016 Time: 09:13 Bed Admit Hold Private MD: Asad Gill Diagnosis: Orthostatic hypotension Presentation: 12/01 09:18 Presenting complaint: Patient states: hx diverticulitis in past 5-6 weeks. 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 nausea and stomach pain. chest pain and SOB "now and again". Adult Sepsis Screening: The patient does not have new or worsening altered mentation. Suicide/Homicide risk assessment- the patient denies having any suicidal and/or homicidal ideations and does not present with any other emotional, behavioral or mental health complaints. Status: Patient is not a director of patient financial services or dependent. Transition of care: patient was not received from another setting of care. 09:18 Acuity: ELIER Level 3 [facility] 09:18 Method Of Arrival: Wheelchair [facility] 09:26 Adult Sepsis Screening: Systolic blood pressure is greater than 100. Patient has a [facility] qSOFA score of 0- Negative Sepsis Screen. Triage Assessment: 09:23 General: Appears in no apparent distress, Behavior is appropriate for age, cooperative. [facility] Pain: Location: epigastric Pain currently is 5 out of 10 on a pain scale. Historical: - Allergies: no known allergies; - Home Meds: 1. pantoprazole 40 mg oral TbEC 1 tab 2 times per day (Last dose: 12/01/2016 08:30) 2. elequis 5mg twice a day (Last dose: 12/01/2016 08:30) 3. valsartan 320 mg oral tab 0.5 tab once daily (Last dose: 12/01/2016 08:30) 4. amoxicillin-pot clavulanate 875-125 mg Oral tab 1 tab every 12 hours (Last dose: 12/01/2016 08:30) 5. Plavix 75 mg Oral tab 1 tab once daily (Last dose: 12/01/2016 08:30) 6. timolol maleate 0.5 % Opht drpd 1 drop 2 times per day (Last dose: 12/01/2016 08:30) 7. atorvastatin 20 mg oral tab 1 tab once daily (Last dose: 12/01/2016 08:30) 8. tizanidine 4 mg oral tab nightly (Last dose: 11/30/2016) 9. tamsulosin 0.4 mg oral cp24 1 cap once daily (Last dose: 12/01/2016 08:30) - PMHx: A-fib; BPH; CAD; cardiac stent; GERD; Hypercholesterolemia; Hypertension; Sciatica; - PSHx: Cardiac stents; - Social history: Smoking status: Patient states former smoker of tobacco. No barriers to communication noted, The patient speaks fluent Spanish, Speaks appropriately for age. - Family history: Not pertinent. - : The pt / caregiver states he / she is on anticoagulants: Plavix. EliiCentera Home medication list is obtained from the patient. - Exposure Risk Screening:: None identified. Screenin:13 Screening information is obtained from the patient. Fall risk: No risks identified. ml6 Assistance ADL's: requires no assistance with activities of daily living. Abuse/DV Screen: The patient / caregiver reports he/she is: not in a situation that causes fear, pain or injury. Nutritional screening: No deficits noted. Advance Directives: Currently, there is no health care proxy. home support is adequate. Assessment: 10:00 General: Appears in no apparent distress, Behavior is anxious, cooperative. Pain: ml6 Denies pain. Neurological: No deficits noted. Level of Consciousness is awake, alert, Oriented to person, place, time. Cardiovascular: No deficits noted. Capillary refill < 3 seconds is brisk in bilateral fingers toes Heart tones S1 S2 present. Respiratory: No deficits noted. Airway is patent Respiratory effort is even, unlabored, Respiratory pattern is regular, symmetrical, Breath sounds are clear bilaterally. GI: Abdomen is flat, non- distended Bowel sounds present X 4 quads. Abd is soft and non tender X 4 quads. Reports nausea, Denies diarrhea, vomiting, pain. 11:34 Adult Sepsis Screening: The patient does not have new or worsening altered mentation. dsf Patient's respiratory rate is less than 22. Systolic blood pressure is less than or equal to 100 (1 point). Patient has a qSOFA score of 1- Negative Sepsis Screen. General: Appears in no apparent distress, comfortable, Behavior is appropriate for age, cooperative. Pain: Denies pain. Neurological: Level of Consciousness is awake, alert. Cardiovascular: Capillary refill < 3 seconds Heart tones S1 S2 present. Respiratory: Airway is patent Respiratory effort is even, unlabored, Respiratory pattern is regular, symmetrical, Breath sounds are clear bilaterally. GI: Abdomen is non- distended Bowel sounds present X 4 quads. Abd is soft and non tender X 4 quads. Derm: Skin is pink, warm & dry. 12:34 General: Appears in no apparent distress, Behavior is appropriate for age, cooperative. dsf Neurological: Level of Consciousness is awake, alert. Cardiovascular: Capillary refill < 3 seconds. Respiratory: Airway is patent Respiratory effort is even, unlabored, Respiratory pattern is regular, symmetrical. Derm: Skin is pink, warm & dry. 13:34 General: Appears in no apparent distress, comfortable, Behavior is appropriate for age, dsf cooperative. Pain: Denies pain. Neurological: Level of Consciousness is awake, alert. Cardiovascular: Capillary refill < 3 seconds. Respiratory: Airway is patent Respiratory effort is even, unlabored, Respiratory pattern is regular, symmetrical. Derm: Skin is pink, warm & dry. 13:55 General: Dr. Ruiz in examining patient . dsf 14:00 Adult Sepsis Screening: The patient does not have new or worsening altered mentation. dsf Patient's respiratory rate is less than 22. Systolic blood pressure is greater than 100. Patient has a qSOFA score of 0- Negative Sepsis Screen. General: Appears in no apparent distress, comfortable, Behavior is appropriate for age, cooperative. Pain: Denies pain. Neurological: Level of Consciousness is awake, alert, Oriented to person, place, time. Cardiovascular: Capillary refill < 3 seconds Heart tones S1 S2 present. Respiratory: Airway is patent Respiratory effort is even, unlabored, Respiratory pattern is regular, symmetrical, Breath sounds are clear bilaterally. GI: Abdomen is non- distended Bowel sounds present X 4 quads. Abd is soft and non tender X 4 quads. Derm: Skin is pink, warm & dry. 15:00 General: Appears in no apparent distress, comfortable, Behavior is appropriate for age, dsf cooperative. Neurological: Level of Consciousness is awake, alert. Cardiovascular: No deficits noted. Respiratory: No deficits noted. Derm: Skin is pink, warm & dry. 16:06 Adult Sepsis Screening: The patient does not have new or worsening altered mentation. dsf Patient's respiratory rate is less than 22. Systolic blood pressure is greater than 100. Patient has a qSOFA score of 0- Negative Sepsis Screen. General: Appears in no apparent distress, comfortable, Behavior is appropriate for age, cooperative. Pain: Denies pain. Neurological: Level of Consciousness is awake, alert, Oriented to person, place, time. Cardiovascular: Capillary refill < 3 seconds. Respiratory: Airway is patent Respiratory effort is even, unlabored, Respiratory pattern is regular, symmetrical. Derm: Skin is pink, warm & dry. 16:45 General: Appears in no apparent distress, comfortable, Behavior is appropriate for age, dsf cooperative. Pain: Denies pain. Neurological: Level of Consciousness is awake, alert, Oriented to person, place, time. Cardiovascular: Capillary refill < 3 seconds. Respiratory: Airway is patent Respiratory effort is even, unlabored, Respiratory pattern is regular, symmetrical. Derm: Skin is pink, warm & dry. Vital Signs: 09:23 BP 140 / 65; Pulse 66; Resp 18; Temp 96.8(O); Pulse Ox 99% ; Weight 85.73 kg; Height 6 [facility] ft. 1 in. (185.42 cm) (R); 11:33 BP 162 / 74 Supine; Pulse 63; Pulse Ox 97% on R/A; dsf 11:33 BP 159 / 75 Sitting; Pulse 62; Pulse Ox 95% on R/A; dsf 11:33 BP 99 / 60 Standing; Pulse 64; Pulse Ox 99% on R/A; dsf 13:03 BP 102 / 67 (auto/); dsf 13:04 Pulse 56 MON; Resp 20; Pulse Ox 98% on R/A; Pain 0/10; dsf 14:42 BP 129 / 58; Pulse 60; Resp 16; Temp 97.7(O); Pulse Ox 97% ; jo3 16:13 BP 130 / 60; Pulse 78; Resp 18; Temp 97.8(O); Pulse Ox 100% on R/A; Pain 0/10; dem1 16:42 BP 146 / 70; Pulse 56; Resp 20; Temp 96.5(O); Pulse Ox 98% on R/A; Pain 0/10; dsf 09:23 Body Mass Index 24.94 (85.73 kg, 185.42 cm) [facility] Vitals: 09:23 Log In Time: December 01, 2016 at 09:11. [facility] ED Course: 09:17 Patient visited by Kat Mendoza Reg. lg 09:17 GillAsadreuben is Private Physician. lg 09:17 Patient moved to Waiting lg 09:19 Triage Initiated srm 09:22 Patient moved to Triage 2 [facility] 09:26 Jenna Martini RN is Primary Nurse. srm 09:26 Rex Emmanuel RN is Primary Nurse. srm 09:26 Patient moved to 8 srm 09:35 Primary Nurse role handed off by Jenna Martini RN pc 09:41 Aaron Sherman DO is PHCP. gk1 09:41 Tomas Del Toro MD is Attending Physician. gk1 09:41 Patient visited by Aaron Sherman DO. gk1 09:41 Patient visited by Aaron Sherman DO. gk1 10:16 Patient visited by Rex Emmanuel RN. ml6 10:40 Patient visited by Rex Emmanuel RN. ml6 11:01 EKG done. (by ED staff). Reviewed by Tomas Del Toro MD. dem1 11:05 Patient visited by Shaun Cruz. dem1 11:13 The patient / caregiver is instructed regarding the plan of care and ED course. ml6 11:34 Patient visited by Mery Bethea RN. dsf 11:34 Inserted saline lock: 20 gauge in right antecubital area The patient tolerated the dsf procedure well. 11:35 Patient visited by Mery Bethea RN. dsf 12:49 Patient visited by Mery Bethea RN. dsf 13:10 Patient name changed from Yasir\\S\\\\S\\[facility]\\S\\ to Yasir\\S\\ \\S\\[place]. EDMS 13:11 [facility] Payment Agreement was scanned into [employer] and attached to record. lg 13:35 Nicky Ruiz is Hospitalizing Provider. pc 13:40 Patient moved to Admit Hold [id number] 14:01 Patient visited by Mery Bethea RN. dsf 15:24 No procedures done that require assistance. dsf 15:26 Patient visited by Mery Bethea RN. dsf 16:13 Patient visited by Shaun Cruz. dem1 21:29 T-Sheet-- Draft Copy was scanned into [employer] and attached to record. klr Order Results: Lab Order: CIP; SPEC 12/01/16 11:01 Test: CPK CREATINE PHOSPHOKINASE; Value: 89; Range: 39-308; Units: U/L; Status: F Test: CK-MB VALUE MASS; Value: 2.2; Range: 0.0-3.6; Units: NG/ML; Status: F Test: MB/CK RELATIVE INDEX; Value: 2.47; Range: < OR =4; Status: F Test Note: ; DIAGNOSIS CRITERIA MMB ng/ml Relative Index (RI) NON-AMI < or = 5 N/A CA ZONE > 5 < or = 4 AMI > 5 > 4 Lab Order: Troponin; [facility]12/01/16 11:01 Test: TROPONIN I; Value: < 0.02; Range: < 0.10; Units: NG/ML; Status: F Test Note: ; Troponin I Reference Interval for [employer] LOCI: 99th Percentile= 0.00-0.045 ng/ml Risk Stratification: <= 0.10 ng/ml Decreased Risk for Adverse Clinical Events. 0.10-1.50 ng/ml Increased Risk for Adverse Clinical Events. Evaluation of additional criterion and/or repeat testing in 2-6 hours is suggested to rule out myocardial damage. >= 1.50 ng/ml Indicative of Myocardial Injury. Lab Order: Amylase; [facility]12/01/16 11:01 Test: AMYLASE; Value: 31; Range: 25-115; Units: U/L; Status: F Lab Order: Lipase; [facility] 12/01/16 11:01 Test: LIPASE; Value: 165; Range: 73-393; Units: U/L; Status: F Lab Order: CBC with Diff; [facility] 12/01/16 11:01 Test: WHITE BLOOD COUNT; Value: 6.4; Range: 4.0-10.0; Units: K/mm3; Status: F Test: RED BLOOD COUNT; Value: 4.05; Range: 4.30-6.10; Abnormal: Below low normal; Units: M/mm3; Status: F Test: HEMOGLOBIN; Value: 12.5; Range: 14.0-18.0; Abnormal: Below low normal; Units: g/dl; Status: F Test: HEMATOCRIT; Value: 35.4; Range: 42.0-52.0; Abnormal: Below low normal; Units: %; Status: F Test: MEAN CORPUSCULAR VOLUME; Value: 87.5; Range: 80.0-96.0; Units: fl; Status: F Test: MEAN CORPUSCULAR HEMOGLOBIN; Value: 30.9; Range: 27.0-33.0; Units: pg; Status: F Test: MEAN CORPUSCULAR HGB CONC; Value: 35.3; Range: 32.0-36.5; Units: g/dl; Status: F Test: RED CELL DISTRIBUTION WIDTH; Value: 13.4; Range: 11.5-14.5; Units: %; Status: F Test: PLATELET COUNT, AUTOMATED; Value: 227; Range: 150-450; Units: k/mm3; Status: F Test: NEUTROPHILS %; Value: 71.2; Range: 36.0-66.0; Abnormal: Above high normal; Units: %; Status: F Test: LYMPH %; Value: 18.1; Range: 24.0-44.0; Abnormal: Below low normal; Units: %; Status: F Test: MONO %; Value: 6.1; Range: 0.0-5.0; Abnormal: Above high normal; Units: %; Status: F Test: EOS %; Value: 2.8; Range: 0.0-3.0; Units: %; Status: F Test: BASO %; Value: 0.4; Range: 0.0-1.0; Units: %; Status: F Test: LARGE UNSTAINED CELL %; Value: 1.3; Range: 0.0-4.0; Units: %; Status: F Test: NEUTROPHILS #; Value: 4.6; Range: 1.8-7.7; Units: K/mm3; Status: F Test: LYMPH #; Value: 1.3; Range: 1.5-4.5; Abnormal: Below low normal; Units: K/mm3; Status: F Test: MONO #; Value: 0.4; Range: 0.0-0.8; Units: K/mm3; Status: F Test: EOS #; Value: 0.2; Range: 0.0-0.50; Units: K/mm3; Status: F Test: BASO #; Value: 0.0; Range: 0.0-0.2; Units: K/mm3; Status: F Test: LARGE UNSTAINED CELL #; Value: 0.1; Range: 0.0-0.4; Units: K/mm3; Status: F Lab Order: Basic Metabolic Profile; [facility] 12/01/16 11:01 Test: GLUCOSE, FASTING; Value: 84; Range: 83-110; Units: MG/DL; Status: F Test: BLOOD UREA NITROGEN; Value: 10; Range: 7-18; Units: MG/DL; Status: F Test: CREATININE FOR GFR; Value: 0.84; Range: 0.70-1.30; Units: MG/DL; Status: F Test: GLOMERULAR FILTRATION RATE; Value: > 60.0; Range: >35; Status: F Test: SODIUM LEVEL; Value: 129; Range: 136-145; Abnormal: Below low normal; Units: MEQ/L; Status: F Test: POTASSIUM SERUM; Value: 4.1; Range: 3.5-5.1; Units: MEQ/L; Status: F Test: CHLORIDE LEVEL; Value: 95; Range: 98-107; Abnormal: Below low normal; Units: MEQ/L; Status: F Test: CARBON DIOXIDE LEVEL; Value: 27; Range: 21-32; Units: MEQ/L; Status: F Test: ANION GAP; Value: 7; Range: 8-16; Abnormal: Below low normal; Units: MEQ/L; Status: F Test: CALCIUM LEVEL; Value: 8.5; Range: 8.8-10.2; Abnormal: Below low normal; Units: MG/DL; Status: F Test Note: ; Units are mL/min/1.73 m2 Chronic Kidney Disease Staging per NKF: Stage I & II GFR >=60 Normal to Mildly Decreased Stage III GFR 30-59 Moderately Decreased Stage IV GFR 15-29 Severely Decreased Stage V GFR <15 Very Little GFR Left ESRD GFR <15 on PERSONAL FINANCIAL COUNSELOR Lab Order: MAGNESIUM LEVEL; [facility]12/01/16 11:01 Test: MAGNESIUM LEVEL; Value: 2.1; Range: 1.8-2.4; Units: MG/DL; Status: F Lab Order: URIC ACID; 12/01/16 11:01 Test: URIC ACID; Value: 3.1; Range: 3.5-7.2; Abnormal: Below low normal; Units: MG/DL; Status: F Outcome: 13:35 Decision to Hospitalize by Provider. pc 15:24 No special radiology studies were completed. dsf 15:26 Discharge Assessment: Patient awake, alert and oriented x 3. No cognitive and/or dsf functional deficits noted. Patient verbalized understanding of disposition instructions. patient administered narcotics - no. 15:46 Admission hand-off: Report Faxed Fax receipt verified by PCU nurse. dsf 15:47 The following High Risk Discharge criteria are identified: None. dsf 16:06 Condition: stable. Property :Personal belongings accompany Pt. dsf 16:45 Admitted to Med/Surg accompanied by tech, family with patient, via wheelchair, with dsf chart. 16:49 Patient left the ED. dsf Signatures: Dispatcher [employer] EDMS Tomas Del Toro MD MD pc Jobson, Karen, RN RN Desiree Espinosa, RN Kat Nails, Mikel Morin Merna SenaRN Rex Hernadez RN RN Mery TanRN RN Shaun Salazar Jennifer,RN RN [id number] Nabila Jennings Gurpreet, DO DO 1 Corrections: (The following items were deleted from the chart) 14:43 14:42 Temp 97.7F Oral; joJoanie joJoanie 16:45 16:06 Admitted to PCU accompanied by nurse, accompanied by tech, via stretcher, on dsf monitor, dsf Chart Complete MTDD
[2016-12-04 05:45] VITALS: BP 162/72
[2016-12-04 05:51] LABS: BASO % 0.2 % (0.0-1.0); EOS # 0.1 K/mm3 (0.0-0.50); EOS % 1.8 % (0.0-3.0); LARGE UNSTAINED CELL # 0.1 K/mm3 (0.0-0.4); LARGE UNSTAINED CELL % 1.9 % (0.0-4.0); LYMPH # 1.3 K/mm3 (1.5-4.5); LYMPH % 23.6 % (24.0-44.0); MEAN CORPUSCULAR HEMOGLOBIN 30.3 pg (27.0-33.0); MEAN CORPUSCULAR HGB CONC 34.3 g/dl (32.0-36.5); MEAN CORPUSCULAR VOLUME 88.3 fl (80.0-96.0); MONO # 0.4 K/mm3 (0.0-0.8); MONO % 6.4 % (0.0-5.0); NEUTROPHILS # 3.7 K/mm3 (1.8-7.7); PLATELET COUNT, AUTOMATED 221 k/mm3 (150-450); RED CELL DISTRIBUTION WIDTH 13.5 % (11.5-14.5); WHITE BLOOD COUNT 5.5 K/mm3 (4.0-10.0)
[2016-12-04 06:01] LABS: ANION GAP 9 MEQ/L (8-16); BLOOD UREA NITROGEN 14 MG/DL (7-18); CALCIUM LEVEL 8.2 MG/DL (8.8-10.2); CARBON DIOXIDE LEVEL 24 MEQ/L (21-32); CHLORIDE LEVEL 105 MEQ/L (98-107); CREATININE FOR GFR 0.94 MG/DL (0.70-1.30); GLOMERULAR FILTRATION RATE > 60.0 (>35); GLUCOSE, FASTING 88 MG/DL (83-110); POTASSIUM SERUM 3.8 MEQ/L (3.5-5.1); SODIUM LEVEL 138 MEQ/L (136-145)
[2016-12-04] MEDS: CLOPIDOGREL 75 MG TAB PO SCH (08:15)
[2016-12-04] MEDS: PANTOPRAZOLE 40MG TAB (PROTONIX) PO SCH ×2 (08:15→20:24)
[2016-12-04] MEDS: SENOKOT S TAB PO SCH ×2 (08:15→20:24)
[2016-12-04] MEDS: VALSARTAN 80 MG TAB (DIOVAN) PO SCH (08:16)
[2016-12-04] MEDS: TIMOLOL MALEATE 0.5% OPHTH SOLN 5 ML OU SCH ×2 (08:16→20:24)
[2016-12-04] MEDS: ATORVASTATIN 20 MG TAB PO SCH (08:16)
[2016-12-04] MEDS: APIXABAN 5 MG TAB (ELIQUIS) PO SCH ×2 (08:16→20:24)
[2016-12-04] MEDS: METOCLOPRAMIDE 5 MG TAB PO SCH ×3 (08:16→20:24)
--- NOTE | 2016-12-04 11:16 | IPNPDOC ---
Text Note Date of Service The patient was seen on 12/04/16. NOTE Subjective: Pt states his dizziness upon standing is improving. Denies CP/ Palpitations. Objective: Vitals: (see below) General: No acute distress, laying comfortably in bed. HEENT: Moist mucous membranes. Neck: No JVD or lymphadenopathy Cardiac: RRR, No murmurs Pulm: Clear to auscultation b/l. No wheezing, rhonchi Abd: NT/ND + BS Ext: No edema or cyanosis Labs (see below) Images: Assessment/Plan 1. Orthostatic hypotension - likely medication related - flomax and tizanidine, which have been stopped. BP improved. Spoke with pt and daughter- major concern is falls/head trauma while being on Eliquis. Will r/o adrenal insufficiency as prior cortisol am level was 6. s/p cosyntropin test with levels pending. 2. 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 Urine Na 60. s/p ivf. Na improving. Fluid restriction 1500cc/hr. 3. AF on Eliquis 4. HLD - on statin 5. CAD h/o PCI - on Plavix 6. BPH - D/c Flomax. will need Urology f/u. If retention continues, will try finasteride until seen by Urology, although finasteride may also cause orthostatic hypotension. DVT prophy: On Eliquis VS,Fishbone, I+O VS, Fishbone, I+O Laboratory Tests 12/04/16 05:14 Calcium Level 8.2 L, Red Blood Count 3.91 L, Mean Corpuscular Volume 88.3, Mean Corpuscular Hemoglobin 30.3, Mean Corpuscular Hemoglobin Concent 34.3, Red Cell Distribution Width 13.5, Neutrophils (%) (Auto) 66.0, Lymphocytes (%) (Auto) 23.6 L, Monocytes (%) (Auto) 6.4 H, Eosinophils (%) (Auto) 1.8, Basophils (%) ( Auto) 0.2, Neutrophils # (Auto) 3.7, Lymphocytes # (Auto) 1.3 L, Monocytes # ( Auto) 0.4, Eosinophils # (Auto) 0.1, Basophils # (Auto) 0.0 Vital Signs Date Time Temp Pulse Resp B/P Pulse Ox O2 Delivery O2 Flow Rate FiO2 2/26/17 10:22 Room Air 12/04/16 08:16 179/84 12/04/16 05:45 96.5 60 17 96 I&O- Last 24 Hours up to 6 AM 12/04/16 06:00 Intake Total 1500 ml Output Total 2180 ml Balance -680 ml JUAN ALBERTO ZAVALETA MD Dec 04, 2016 11:15
[2016-12-04 13:37] VITALS: BP 141/69
[2016-12-04 15:15] VITALS: BP_SYST 129; BP_SYST 137; BP_SYST 182; BP_DIAS 68; BP_DIAS 78; BP_DIAS 82
[2016-12-04 22:00] VITALS: BP 165/80
[2016-12-05 06:00] VITALS: BP_SYST 142; BP_SYST 145; BP_SYST 160; BP_DIAS 80; BP_DIAS 82; BP_DIAS 85
[2016-12-05 06:27] LABS: BASO % 0.3 % (0.0-1.0); EOS # 0.1 K/mm3 (0.0-0.50); EOS % 2.3 % (0.0-3.0); LARGE UNSTAINED CELL # 0.1 K/mm3 (0.0-0.4); LARGE UNSTAINED CELL % 1.7 % (0.0-4.0); LYMPH # 1.4 K/mm3 (1.5-4.5); MEAN CORPUSCULAR HEMOGLOBIN 30.3 pg (27.0-33.0); MEAN CORPUSCULAR HGB CONC 34.3 g/dl (32.0-36.5); MEAN CORPUSCULAR VOLUME 88.4 fl (80.0-96.0); MONO # 0.3 K/mm3 (0.0-0.8); MONO % 4.6 % (0.0-5.0); NEUTROPHILS # 4.3 K/mm3 (1.8-7.7); PLATELET COUNT, AUTOMATED 232 k/mm3 (150-450); RED CELL DISTRIBUTION WIDTH 13.5 % (11.5-14.5); WHITE BLOOD COUNT 6.3 K/mm3 (4.0-10.0)
[2016-12-05 06:40] LABS: ANION GAP 9 MEQ/L (8-16); BLOOD UREA NITROGEN 12 MG/DL (7-18); CALCIUM LEVEL 8.4 MG/DL (8.8-10.2); CARBON DIOXIDE LEVEL 27 MEQ/L (21-32); CHLORIDE LEVEL 103 MEQ/L (98-107); CREATININE FOR GFR 0.94 MG/DL (0.70-1.30); GLOMERULAR FILTRATION RATE > 60.0 (>35); GLUCOSE, FASTING 86 MG/DL (83-110); POTASSIUM SERUM 3.8 MEQ/L (3.5-5.1); SODIUM LEVEL 139 MEQ/L (136-145)
[2016-12-05] MEDS: APIXABAN 5 MG TAB (ELIQUIS) PO SCH (09:47)
[2016-12-05] MEDS: CLOPIDOGREL 75 MG TAB PO SCH (09:47)
[2016-12-05] MEDS: METOCLOPRAMIDE 5 MG TAB PO SCH (09:47)
[2016-12-05] MEDS: SENOKOT S TAB PO SCH (09:47)
[2016-12-05] MEDS: ATORVASTATIN 20 MG TAB PO SCH (09:47)
[2016-12-05] MEDS: PANTOPRAZOLE 40MG TAB (PROTONIX) PO SCH (09:47)
[2016-12-05 09:48] VITALS: BP 145/82
[2016-12-05] MEDS: VALSARTAN 80 MG TAB (DIOVAN) PO SCH (09:48)
[2016-12-05] MEDS: TIMOLOL MALEATE 0.5% OPHTH SOLN 5 ML OU SCH (09:48)
[2016-12-05] MEDS ORDERED: DIOV80TA3 PO (11:08)
--- NOTE | 2016-12-05 11:38 | DS.PDOC ---
Discharge Summary General Date of Admission Dec 01, 2016 at 13:06 Date of Discharge 12/05/16 Discharge Summary Consults: None Discharge diagnosis: Orthostatic hypotension, hyponatremia Secondary diagnosis: Atrial fibrillation, hyperlipidemia, coronary artery disease with history of percutaneous intervention, BPH Hospital course: Patient was admitted on 12/01/16 with chief complaint of abdominal pain, nausea, dizzy for 2 weeks prior. Emergency department he was found to have orthostatic hypotension, supine blood pressure 162/74, standing blood pressure of 99/66. Sodium on admission of 129. Patient was admitted, tizanidine and Flomax were held due to orthostatic hypotension. Patient was placed on fluid restriction for hyponatremia, likely SIADH. Patient's sodium corrected with fluid restriction. Evaluation for SIADH: patient with a normal a.m. cortisol, normal cortisol response to cosyntropin. Patient's orthostatic symptoms improved during hospitalization. Remainder of patient's hospitalization was uncomplicated. Progress note on date of discharge: Subjective: Patient reports that he is not doing too bad today. He reports that he is not getting dizzy or lightheadedness. He is having some mild constipation. He denies any fevers, chills, sweats, chest pain/pressure, shortness of breath, difficulty breathing, nausea, vomiting, diarrhea. Objective: Vitals: Temperature 97.1, blood pressure 145/82, pulse ox 97% on room air Gen.: Patient awake, alert and oriented, verbal and able to answer questions appropriately. He does not appear to be in any acute distress Heart: Regular rate and rhythm, normal S1-S2. No murmurs, rubs, clicks or gallops Lungs: Clear to auscultation bilaterally. No wheezes, rales or rhonchi Abdomen: Mild left lower quadrant tenderness (patient attributes this to constipation), soft, no masses to palpation Labs: CBC: White blood cells 6.3, hemoglobin and hematocrit 11.9/34.8, platelets 232 Chemistry: Sodium 139, potassium 3.8, chloride 103, Carbon dioxide 27, BUN 12, creatinine 0.94, glucose 86, calcium 8.4 A.m. cortisol 7.8, Cortisol response to cosyntropin: 21.8 at 30 minutes, 21.4 at 60 minutes Assessment: Patient is a 86-year-old male admitted for orthostatic hypotension and hyponatremia. Patient's hyponatremia has responded to fluid restriction, orthostatic hypotension has subjectively improved. Patient will be discharged at this time. Disposition: Discharge patient to home Follow-up: With PCP and urology in 1-2 weeks Activity: As tolerated Diet: 2 g sodium diet Medications on discharge: Valsartan 80 mg by mouth daily Eliquis 5 mg by mouth twice a day Atorvastatin 20 mg by mouth daily Plavix 75 mg by mouth daily Protonix 40 mg by mouth twice a day Timolol 1 drop each eye twice a day Cc: Dr. Gill Time spent on discharge: Greater than 30 minutes Medications Scheduled Apixaban Base (Eliquis) 5 Mg Tab 5 MG PO BID (Reported) Atorvastatin Calcium (Atorvastatin Calcium) 20 Mg Tab 20 MG PO DAILY (Reported ) Clopidogrel Bisulfate (Plavix) 75 Mg Tab 75 MG PO DAILY (Reported) Pantoprazole Sodium (Pantoprazole Sodium) 40 Mg Tab 40 MG PO BID (Reported) Timolol Maleate (Timolol Maleate) 0.5 % Alix 1 DROP OU BID (Reported) Valsartan (Diovan) 80 Mg Tab 80 MG PO DAILY Allergies Coded Allergies: No Known Drug Allergy (Verified Allergy, Unknown, 11/26/15) JASON FAN DO Dec 05, 2016 11:38
== END 2016-12-05 12:41 | disposition home or self-care (01) ==
LOC: M ED 09:13 → M ED INP 13:06 → M MSPAV 16:53
PROVIDERS: ADMIT Internal Medicine Nephrology; ATTEND Internal Medicine
DX: I95.1 Orthostatic hypotension (principal); E87.1 Hypo-osmolality and hyponatremia; I48.91 Unspecified atrial fibrillation; E78.4 Other hyperlipidemia; I25.10 Atherosclerotic heart disease of native coronary artery without angina pectoris; N40.0 Benign prostatic hyperplasia without lower urinary tract symptoms; Z79.02 Long term (current) use of antithrombotics/antiplatelets; Z79.899 Other long term (current) drug therapy; K57.30 Diverticulosis of large intestine without perforation or abscess without bleeding; G25.81 Restless legs syndrome; Z87.891 Personal history of nicotine dependence
CPT/HCPCS: 36415; 80048; 81001; 82024; 82150; 82533; 82550; 82553; 83690; 83735; 83935; 84300; 84484; 84550; 85025; 93005; 96374; 97161; 99285; G0378; G8978; G8979; G8980; J0834

== ENCOUNTER → 2016-12-09 | Outpatient (REF) | payer MEDICARE ==
[~2016-12-09] MED LIST changes: +DIOV80TA3 PO; +FLOM5CAP PO; +TIZA4CAP3 PO
== END ==
LOC: M SMT 16:56
PROVIDERS: ATTEND Nurse Practitioner Family
DX: R39.89 Other symptoms and signs involving the genitourinary system (principal)
CPT/HCPCS: 51798; 81001; 87086; G0463

== ENCOUNTER → 2017-01-18 | Outpatient (CLI) | payer MEDICARE ==
[2017-01-18 14:09] LABS: ANION GAP 6 MEQ/L (8-16); BLOOD UREA NITROGEN 12 MG/DL (7-18); CARBON DIOXIDE LEVEL 29 MEQ/L (21-32); CHLORIDE LEVEL 104 MEQ/L (98-107); CREATININE FOR GFR 0.94 MG/DL (0.70-1.30); GLOMERULAR FILTRATION RATE > 60.0 (>35); GLUCOSE, FASTING 89 MG/DL (83-110); POTASSIUM SERUM 4.3 MEQ/L (3.5-5.1); SODIUM LEVEL 139 MEQ/L (136-145)
== END ==
LOC: M SMT 09:21
PROVIDERS: ATTEND Internal Medicine Cardiovascular Disease
DX: Z98.61 Coronary angioplasty status (principal); I10 Essential (primary) hypertension

== ENCOUNTER → 2017-02-01 | Outpatient (CLI) | payer MEDICARE ==
--- NOTE | 2017-02-07 12:49 | RADONC ---
RADIATION ONCOLOGY FOLLOWUP NOTE: DATE OF SERVICE: 02/01/2017 CHART NO: 11 - 089 DIAGNOSIS: Basal cell cancer. STAGE: Stage I, T1N0M0 ECOG PERFORMANCE STATUS: 0 Mr. Guevara is a very pleasant 86-year-old white male with the diagnosis of a stage I, T1N0M0 basal cell carcinoma involving his right cheek who initially presented to us on 11/26/2015 for consideration of postoperative radiation therapy in attempt to achieve local control for a positive margin. We have been following him since then and he has had no difficulties whatsoever. The patient presents today reporting that overall he is doing well and he has no nodularity or discomfort in the cheek. REVIEW OF SYSTEMS: The patient's review of systems is noncontributory. Denies nausea, vomiting, fevers, chills, night sweats, diplopia, headaches, anxiety or depression, anorexia, weight loss, visual disturbances, chest pain, urinary or bowel difficulties, bone pain, or neurological problems. PHYSICAL EXAMINATION: The patient is an elderly white male in no acute distress. HEENT: Exam is normocephalic, atraumatic. Extraocular movements are intact. The patient's skin over the cheek is free of any type of nodularity, infiltration or evidence of recurrent disease. There is no palpable preauricular, cervical, supraclavicular, infraclavicular lymphadenopathy present. Examination of the patient's skin over his face, shoulders and neck showed no other suspicious lesions. ASSESSMENT: The patient is clinically SERINA at this point. Considering his advanced age, I have discharged him from our followup except on a as needed basis. cc: *Maxx Gill MD
== END ==
LOC: M ONCR 09:49
PROVIDERS: ATTEND Radiology Radiation Oncology
DX: C44.309 Unspecified malignant neoplasm of skin of other parts of face (principal)

== ENCOUNTER → 2017-05-04 | Outpatient (CLI) | payer MEDICARE ==
[~2017-05-04] MED LIST changes: -AUGM875T27 PO; +AUGM875T28 PO; +BACI500O8 TOP; +ESCI10TA2; +FINA5TAB2; +LATA5OPD; +PLAV1TAB2 PO; -PLAV75TA38 PO; +TIMO0.5S29 OU; -TIMO5OPD OU; +TOBR3OPD
== END ==
LOC: M SMT 12:23
PROVIDERS: ATTEND Ophthalmology
DX: H53.8 Other visual disturbances (principal)

== ENCOUNTER 2017-05-11 10:10 | Emergency (ER) | payer MEDICARE ==
[~2017-05-11] VITALS: Ht 185.4 cm; Wt 88.0 kg
[~2017-05-11 10:10] MED LIST changes: -BACI500O8 TOP; -ESCI10TA2; -FINA5TAB2; -LATA5OPD; -TOBR3OPD
[2017-05-11] MEDS ORDERED: FINA5TAB2 (10:22)
[2017-05-11] MEDS ORDERED: ESCI10TA2 (10:22)
[2017-05-11] MEDS ORDERED: TOBR3OPD (10:22)
--- NOTE | 2017-05-11 10:59 | REP ---
CT Head without contrast HISTORY: Trauma COMPARISON: 11/04/2016 Areas of decreased attenuation are present in the periventricular and subcortical white matter. This represents small-vessel ischemic disease. There is no intraparenchymal hemorrhage, acute infarct, mass or midline shift. The ventricular system and cortical sulci are dilated consistent with moderate volume loss. There is no extra cerebral collection. There is no fracture. The visualized sinuses are clear. IMPRESSION: 1. Small vessel ischemic disease. 2. Moderate volume loss. Signed by Yasir Calderon MD 05/11/2017 10:50 A
[2017-05-11 11:10] LABS: MEAN CORPUSCULAR HEMOGLOBIN 29.7 pg (27.0-33.0); MEAN CORPUSCULAR HGB CONC 34.2 g/dl (32.0-36.5); MEAN CORPUSCULAR VOLUME 86.9 fl (80.0-96.0); RED CELL DISTRIBUTION WIDTH 13.5 % (11.5-14.5); WHITE BLOOD COUNT 5.9 K/mm3 (4.0-10.0)
[2017-05-11 11:13] LABS: INR 1.31
[2017-05-11 11:26] LABS: ANION GAP 8 MEQ/L (8-16); BLOOD UREA NITROGEN 18 MG/DL (7-18); CALCIUM LEVEL 9.2 MG/DL (8.8-10.2); CARBON DIOXIDE LEVEL 27 MEQ/L (21-32); CHLORIDE LEVEL 106 MEQ/L (98-107); CREATININE FOR GFR 0.91 MG/DL (0.70-1.30); GLOMERULAR FILTRATION RATE > 60.0 (>35); GLUCOSE, FASTING 92 MG/DL (83-110); POTASSIUM SERUM 4.3 MEQ/L (3.5-5.1); SODIUM LEVEL 141 MEQ/L (136-145)
--- NOTE | 2017-05-11 11:43 | REP ---
RIGHT WRIST COMPLETE: 05/11/2017 CLINICAL HISTORY: Trauma. COMPARISON: 08/08/2012. Distal radius and ulna without fracture or focal bone lesion. Carpal bones and their joint spaces are preserved. There are some degenerative changes at the 1st CMC joint proximal metacarpals without fracture. The bones are severely demineralized. Minor soft-tissue swelling over the dorsal aspect of the wrist. IMPRESSION: Some osteoporosis without visible or displaced acute fracture, subluxation or other focal bone lesion. Signed by Efren Tovar MD 05/11/2017 06:30 P
--- NOTE | 2017-05-11 11:44 | REP ---
RIGHT HAND, FOUR VIEWS: HISTORY: Trauma. There is no acute fracture or dislocation. There is narrowing of the intermediate and distal interphalangeal joint spaces. The bony structure is osteopenic. IMPRESSION: There is no acute fracture or dislocation. Signed by Yasir Calderon MD 05/11/2017 12:05 P
[2017-05-11] MEDS ORDERED: BACI500O8 TOP (12:17)
[2017-05-11 12:36] VITALS: BP 189/86
== END 2017-05-11 12:40 | disposition home or self-care (01) ==
LOC: M ED 10:10
DX: S51.811A Laceration without foreign body of right forearm, initial encounter (principal); S60.221A Contusion of right hand, initial encounter; Z87.891 Personal history of nicotine dependence; W01.198A Fall on same level from slipping, tripping and stumbling with subsequent striking against other object, initial encounter; Y92.096 Garden or yard of other non-institutional residence as the place of occurrence of the external cause; Y93.H1 Activity, digging, shoveling and raking; Y99.9 Unspecified external cause status

== ENCOUNTER 2017-07-18 09:56 | Emergency (ER) | payer MEDICARE ==
[~2017-07-18] VITALS: Ht 185.4 cm; Wt 86.4 kg
[~2017-07-18 09:56] MED LIST changes: +BACI500O8 TOP; +ESCI10TA2; +FINA5TAB2; +TOBR3OPD
[2017-07-18] MEDS ORDERED: LATA5OPD (10:13)
--- NOTE | 2017-07-18 11:42 | REP ---
LEFT WRIST, FOUR VIEWS: HISTORY: Pain. There is no acute fracture or dislocation. There is narrowing of the radiocarpal and 1st carpometacarpal joint spaces. The bony structure is osteopenic. IMPRESSION: There is no acute fracture or dislocation. Signed by Yasir Calderon MD 07/18/2017 11:43 A
[2017-07-18] MEDS ORDERED: ACETAMINOPHEN TAB 650MG DOSE (2X325MG) PO ONE (12:45)
--- NOTE | 2017-07-18 12:48 | REP ---
CT Head without contrast HISTORY: Fall COMPARISON: 05/11/2017 Areas of decreased attenuation are present in the periventricular and subcortical white matter. This represents small-vessel ischemic disease. There is no intraparenchymal hemorrhage, acute infarct, mass or midline shift. The ventricular system and cortical sulci are dilated consistent with moderate volume loss. There is no extra cerebral collection. There is no fracture. The visualized sinuses are clear. IMPRESSION: 1. Small vessel ischemic disease. 2. Moderate volume loss. Signed by Yasir Calderon MD 07/18/2017 12:40 P
[2017-07-18 13:22] VITALS: BP 158/72
== END 2017-07-18 13:22 | disposition home or self-care (01) ==
LOC: M ED 09:56
DX: S63.502A Unspecified sprain of left wrist, initial encounter (principal); S80.212A Abrasion, left knee, initial encounter; Z87.891 Personal history of nicotine dependence; W01.198A Fall on same level from slipping, tripping and stumbling with subsequent striking against other object, initial encounter; Y92.099 Unspecified place in other non-institutional residence as the place of occurrence of the external cause; Y93.89 Activity, other specified; Y99.9 Unspecified external cause status

== ENCOUNTER → 2017-10-04 | Outpatient (REF) | payer MEDICARE | LOC: M LAB REF 12:36 | DX: N39.0 Urinary tract infection, site not specified (principal) | CPT/HCPCS: 81001 ==

== ENCOUNTER → 2017-10-30 | Outpatient (REF) | payer MEDICARE ==
[2017-10-30 19:24] LABS: APPEARANCE, URINE CLEAR (CLEAR); BACTERIA, URINE AUTO NEGATIVE (NEGATIVE); BILIRUBIN, URINE AUTO NEGATIVE (NEGATIVE); BLOOD, URINE BLOOD NEGATIVE (NEGATIVE); COLOR, URINE YELLOW (YELLOW); GLUCOSE, URINE (UA) AUTO NEGATIVE (NEGATIVE); KETONE, URINE AUTO NEGATIVE (NEGATIVE); LEUKOCYTE ESTERASE, URINE AUTO NEGATIVE (NEGATIVE); MUCUS, URINE SMALL (NEGATIVE); NITRITE, URINE AUTO NEGATIVE (NEGATIVE); PROTEIN, URINE AUTO NEGATIVE (NEGATIVE); RBC, URINE AUTO 1 /HPF (0-3); SPECIFIC GRAVITY URINE AUTO 1.015 (1.002-1.035); SQUAMOUS EPITHELIAL CELL UR AU 0 /HPF (0-6); WBC, URINE AUTO 1 /HPF (0-3)
== END ==
LOC: M SMT 17:02
DX: R30.0 Dysuria (principal)
CPT/HCPCS: 81001

== ENCOUNTER 2017-11-16 09:10 | Emergency (ER) | payer MEDICARE ==
[2017-11-16] MEDS ORDERED: ACETAMINOPHEN 325 MG TAB PO ×2 (09:30)
[2017-11-16 09:52] LABS: BASO % 0.5 % (0.0-1.0); EOS # 0.1 10^3/uL (0.0-0.50); EOS % 2.2 % (0.0-3.0); HEMATOCRIT 34.6 % (42.0-52.0); HEMOGLOBIN 11.8 g/dl (14.0-18.0); IMMATURE GRANULOCYTE % 0.3 % (0-3.0); LYMPH # 1.6 10^3/uL (1.5-4.5); LYMPH % 26.9 % (24.0-44.0); MEAN CORPUSCULAR HEMOGLOBIN 30.2 pg (27.0-33.0); MEAN CORPUSCULAR HGB CONC 34.1 g/dl (32.0-36.5); MEAN CORPUSCULAR VOLUME 88.5 fl (80.0-96.0); MONO # 0.4 10^3/uL (0.0-0.8); MONO % 7.3 % (0.0-5.0); NEUTROPHILS # 3.8 10^3/uL (1.8-7.7); NEUTROPHILS % 62.8 % (36.0-66.0); PLATELET COUNT, AUTOMATED 226 10^3/uL (150-450); RED BLOOD COUNT 3.91 10^6/uL (4.30-6.10); RED CELL DISTRIBUTION WIDTH 13.1 % (11.5-14.5)
[2017-11-16 10:04] LABS: INR 1.14; PROTHROMBIN TIME 14.8 SECONDS (12.4-14.5)
[2017-11-16 10:21] LABS: BEDSIDE GLUCOSE 94 MG/DL (83-110)
[2017-11-16 10:29] LABS: ALBUMIN 3.7 GM/DL (3.2-5.2); ALBUMIN/GLOBULIN RATIO 1.54 (1.00-1.93); ALKALINE PHOSPHATASE 66 U/L (45-117); ALT/SGPT 15 U/L (12-78); ANION GAP 8 MEQ/L (8-16); AST/SGOT 16 U/L (7-37); BILIRUBIN,DIRECT 0.1 MG/DL (0.0-0.2); BILIRUBIN,TOTAL 0.5 MG/DL (0.2-1.0); BLOOD UREA NITROGEN 15 MG/DL (7-18); CALCIUM LEVEL 8.5 MG/DL (8.8-10.2); CARBON DIOXIDE LEVEL 25 MEQ/L (21-32); CHLORIDE LEVEL 107 MEQ/L (98-107); CPK CREATINE PHOSPHOKINASE 96 U/L (39-308); CREATININE FOR GFR 1.01 MG/DL (0.70-1.30); GLOMERULAR FILTRATION RATE > 60.0 (>35); GLUCOSE, FASTING 94 MG/DL (70-100); POTASSIUM SERUM 4.5 MEQ/L (3.5-5.1); SODIUM LEVEL 140 MEQ/L (136-145); TOTAL PROTEIN 6.1 GM/DL (6.4-8.2); TROPONIN I < 0.02 NG/ML (< 0.10)
[2017-11-16 10:34] LABS: CK-MB VALUE MASS 1.9 NG/ML (0.0-3.6); MB/CK RELATIVE INDEX 1.97 (< OR =4)
[2017-11-16] MEDS: APIXABAN 5 MG TAB (ELIQUIS) PO ×2 (12:49)
[2017-11-16] MEDS: FINASTERIDE 5 MG TAB PO ×4 (12:50→12:52)
[2017-11-16] MEDS: PANTOPRAZOLE 40MG TAB (PROTONIX) PO ×2 (12:50)
[2017-11-16] MEDS: ESCITALOPRAM OXALATE 10 MG TAB (LEXAPRO) PO ×2 (12:50)
[2017-11-16] MEDS: CLOPIDOGREL 75 MG TAB PO ×2 (12:50)
[2017-11-16] MEDS: ATORVASTATIN 20 MG TAB PO ×2 (12:50)
[2017-11-16] MEDS: NITROGLYCERIN 0.4 MG SUBL TABLET SL ×6 (13:43→13:53)
[2017-11-16] MEDS: GI COCKTAIL 50ML BTL(HYOSCYAMINE/MAALOX/LIDOCAINE VISCOUS)(1:3:1) PO ×2 (14:15)
[2017-11-16] MEDS: SUCRALFATE SUSP 1GM/10ML UD PO ×2 (14:45)
[2017-11-16 16:48] LABS: ALBUMIN 3.2 GM/DL (3.2-5.2); ALBUMIN/GLOBULIN RATIO 1.39 (1.00-1.93); ALKALINE PHOSPHATASE 57 U/L (45-117); ALT/SGPT 14 U/L (12-78); AST/SGOT 12 U/L (7-37); BILIRUBIN,DIRECT 0.1 MG/DL (0.0-0.2); BILIRUBIN,TOTAL 0.4 MG/DL (0.2-1.0); CK-MB VALUE MASS 1.3 NG/ML (0.0-3.6); CPK CREATINE PHOSPHOKINASE 77 U/L (39-308); LIPASE 168 U/L (73-393); MB/CK RELATIVE INDEX 1.68 (< OR =4); TOTAL PROTEIN 5.5 GM/DL (6.4-8.2); TROPONIN I < 0.02 NG/ML (< 0.10)
[2017-11-16] MEDS: OSELTAMIVIR PHOSPHATE 75 MG CAP (TAMIFLU) PO ×2 (17:45)
[2017-11-16 20:42] LABS: TROPONIN I < 0.02 NG/ML (< 0.10)
[2017-11-16 20:44] LABS: CK-MB VALUE MASS 1.5 NG/ML (0.0-3.6); CPK CREATINE PHOSPHOKINASE 90 U/L (39-308); MB/CK RELATIVE INDEX 1.66 (< OR =4)
[2017-11-17] MEDS ORDERED: FINASTERIDE 5 MG TAB PO ×2 (09:00)
== END 2017-11-16 21:39 | disposition home or self-care (01) ==
LOC: M ED 09:10
DX: R07.9 Chest pain, unspecified (principal); I10 Essential (primary) hypertension; K21.9 Gastro-esophageal reflux disease without esophagitis; E78.5 Hyperlipidemia, unspecified; I25.10 Atherosclerotic heart disease of native coronary artery without angina pectoris; I48.91 Unspecified atrial fibrillation; Z79.899 Other long term (current) drug therapy; Z79.01 Long term (current) use of anticoagulants; Z87.891 Personal history of nicotine dependence
CPT/HCPCS: 70450

== ENCOUNTER → 2018-04-12 | Outpatient (REF) | payer MEDICARE ==
[2018-04-12 18:26] LABS: APPEARANCE, URINE CLEAR (CLEAR); BACTERIA, URINE AUTO NEGATIVE (NEGATIVE); BILIRUBIN, URINE AUTO NEGATIVE (NEGATIVE); BLOOD, URINE BLOOD NEGATIVE (NEGATIVE); COLOR, URINE YELLOW (YELLOW); GLUCOSE, URINE (UA) AUTO NEGATIVE (NEGATIVE); KETONE, URINE AUTO NEGATIVE (NEGATIVE); LEUKOCYTE ESTERASE, URINE AUTO NEGATIVE (NEGATIVE); MUCUS, URINE SMALL (NEGATIVE); NITRITE, URINE AUTO NEGATIVE (NEGATIVE); PROTEIN, URINE AUTO NEGATIVE (NEGATIVE); RBC, URINE AUTO 1 /HPF (0-3); SPECIFIC GRAVITY URINE AUTO 1.016 (1.002-1.035); SQUAMOUS EPITHELIAL CELL UR AU 0 /HPF (0-6); UROBILINOGEN, URINE AUTO 0.2 mg/dL (0.0-2.0); WBC, URINE AUTO 0 /HPF (0-3)
== END ==
LOC: M SMT 17:12
DX: R82.90 Unspecified abnormal findings in urine (principal)
CPT/HCPCS: 81001

== ENCOUNTER 2018-05-06 20:01 | Inpatient (IN) | payer MEDICARE ==
[2018-05-06 20:41] LABS: BASO % 0.2 % (0.0-1.0); EOS # 0.1 10^3/uL (0.0-0.50); EOS % 2.1 % (0.0-3.0); HEMATOCRIT 33.9 % (42.0-52.0); HEMOGLOBIN 11.7 g/dl (13.5-17.5); IMMATURE GRANULOCYTE % 0.4 % (0-3.0); LYMPH # 1.5 10^3/uL (1.5-4.5); LYMPH % 28.7 % (24.0-44.0); MEAN CORPUSCULAR HEMOGLOBIN 28.2 pg (27.0-33.0); MEAN CORPUSCULAR HGB CONC 34.5 g/dl (32.0-36.5); MEAN CORPUSCULAR VOLUME 81.7 fl (80.0-96.0); MONO # 0.6 10^3/uL (0.0-0.8); MONO % 10.4 % (0.0-5.0); NEUTROPHILS # 3.1 10^3/uL (1.8-7.7); NEUTROPHILS % 58.2 % (36.0-66.0); PLATELET COUNT, AUTOMATED 196 10^3/uL (150-450); RED BLOOD COUNT 4.15 10^6/uL (4.30-6.10); RED CELL DISTRIBUTION WIDTH 14.2 % (11.5-14.5); VENOUS BASE EXCESS -2.5 (-2.0-2.0); VENOUS HCO3 21.8 MEQ/L (23.0-27.0); VENOUS O2 SATURATION 89.6 % (60.0-80.0); VENOUS PARTIAL PRESSURE CO2 36.2 mmHg (38.0-50.0); VENOUS PARTIAL PRESSURE O2 57.5 mmHg (30.0-50.0); VENOUS PH 7.397 UNITS (7.330-7.430); VENOUS STANDARD HCO3 22.2 MEQ/L; VENOUS TOTAL CO2 22.9 MEQ/L (24.0-28.0); WHITE BLOOD COUNT 5.3 10^3/uL (4.0-10.0)
[2018-05-06] MEDS: NS 1,000 ML IV (20:48)
[2018-05-06] MEDS: LABETALOL HCL 100 MG/20 ML VIAL IV (20:49)
[2018-05-06 20:56] LABS: AMMONIA 13 uMOL/L (<32)
[2018-05-06 21:00] LABS: ACETAMINOPHEN LEVEL < 2.0 UG/ML (10.0-30.0); ALBUMIN 3.4 GM/DL (3.2-5.2); ALT/SGPT 39 U/L (12-78); ANION GAP 10 MEQ/L (8-16); AST/SGOT 33 U/L (7-37); BILIRUBIN,DIRECT 0.2 MG/DL (0.0-0.2); BLOOD UREA NITROGEN 12 MG/DL (7-18); CALCIUM LEVEL 8.2 MG/DL (8.8-10.2); CARBON DIOXIDE LEVEL 24 MEQ/L (21-32); CHLORIDE LEVEL 94 MEQ/L (98-107); CREATININE FOR GFR 0.91 MG/DL (0.70-1.30); ETHYL ALCOHOL (ETHANOL) < 0.003 % (0.000-0.010); GLOMERULAR FILTRATION RATE > 60.0 (>35); GLUCOSE, FASTING 102 MG/DL (70-100); LIPASE 117 U/L (73-393); POTASSIUM SERUM 3.9 MEQ/L (3.5-5.1); SALICYLATE LEVEL < 1.7 MG/DL (5.0-30.0); SODIUM LEVEL 128 MEQ/L (136-145); TROPONIN I < 0.02 NG/ML (< 0.10)
[2018-05-06 21:06] LABS: ALBUMIN/GLOBULIN RATIO 1.31 (1.00-1.93); ALKALINE PHOSPHATASE 61 U/L (45-117); BILIRUBIN,TOTAL 0.8 MG/DL (0.2-1.0); CK-MB VALUE MASS 7.9 NG/ML (<3.6); CPK CREATINE PHOSPHOKINASE 438 U/L (39-308); THYROID STIMULATING HORMONE 0.899 uIU/ML (0.358-3.740)
[2018-05-06 21:08] LABS: LACTIC ACID SEPSIS PROTOCOL 1.2 MMOL/L (0.4-2.0)
[2018-05-07] MEDS: SENOKOT S TAB PO ×3 (00:42→21:00)
[2018-05-07] MEDS: ACETAMINOPHEN TAB 650MG DOSE (2X325MG) PO ×2 (00:42→21:43)
[2018-05-07] MEDS: LACTULOSE 20 GM/30 ML SYRUP UD PO ×5 (00:43→21:00)
[2018-05-07 00:53] LABS: KETONE, URINE AUTO RFX TRACE mg/dL (NEGATIVE); LEUKOCYTE ESTERASE UR AUTO RFX NEGATIVE (NEGATIVE); NITRITE, URINE AUTO RFX NEGATIVE (NEGATIVE); RBC, URINE AUTO RFX TNTC /HPF (0-3); SPECIFIC GRAVITY UR AUTO RFX 1.017 (1.002-1.035); SQUAM EPITHELIAL CELL UR AURFX 0 /HPF (0-6)
[2018-05-07 00:58] LABS: AMPHETAMINES LEVEL URINE NEGATIVE (NEGATIVE); BARBITURATES URINE NEGATIVE (NEGATIVE); BENZODIAZEPINES URINE NEGATIVE (NEGATIVE); CANNABINOIDS URINE NEGATIVE (NEGATIVE); COCAINE METABOLITE URINE NEGATIVE (NEGATIVE); METHADONE URINE NEGATIVE (NEGATIVE); OPIATES URINE NEGATIVE (NEGATIVE); PHENCYCLIDINE URINE NEGATIVE (NEGATIVE)
[2018-05-07 01:31] LABS: WBC, URINE AUTO RFX 16 /HPF (0-3)
[2018-05-07 03:37] LABS: ANION GAP 8 MEQ/L (8-16); BLOOD UREA NITROGEN 12 MG/DL (7-18); CALCIUM LEVEL 8.1 MG/DL (8.8-10.2); CARBON DIOXIDE LEVEL 23 MEQ/L (21-32); CHLORIDE LEVEL 97 MEQ/L (98-107); CREATININE FOR GFR 0.85 MG/DL (0.70-1.30); GLOMERULAR FILTRATION RATE > 60.0 (>35); GLUCOSE, FASTING 90 MG/DL (70-100); SODIUM LEVEL 128 MEQ/L (136-145)
[2018-05-07 03:44] LABS: OSMOLALITY SERUM 260 MOSM/KG (280-301)
[2018-05-07] MEDS: NS 1,000 ML IV ×2 (03:48→12:57)
[2018-05-07 09:02] LABS: ANION GAP 9 MEQ/L (8-16); BLOOD UREA NITROGEN 10 MG/DL (7-18); CALCIUM LEVEL 7.8 MG/DL (8.8-10.2); CARBON DIOXIDE LEVEL 22 MEQ/L (21-32); CHLORIDE LEVEL 98 MEQ/L (98-107); CREATININE FOR GFR 0.77 MG/DL (0.70-1.30); GLOMERULAR FILTRATION RATE > 60.0 (>35); GLUCOSE, FASTING 82 MG/DL (70-100); POTASSIUM SERUM 3.8 MEQ/L (3.5-5.1); SODIUM LEVEL 129 MEQ/L (136-145); URIC ACID 3.8 MG/DL (3.5-7.2)
[2018-05-07] MEDS: PANTOPRAZOLE 40MG TAB (PROTONIX) PO ×2 (09:33→21:42)
[2018-05-07] MEDS: MIRALAX *UNIT DOSE* 17GM PACKET PO (09:33)
[2018-05-07] MEDS: TIMOLOL MALEATE 0.5% OPHTH SOLN 5 ML OU ×2 (09:33→21:38)
[2018-05-07] MEDS: TOBRADEX OPHTH SUSP 2.5 ML OU ×2 (09:33→21:38)
[2018-05-07] MEDS: ESCITALOPRAM OXALATE 10 MG TAB (LEXAPRO) PO (09:33)
[2018-05-07] MEDS: FINASTERIDE 5 MG TAB PO (09:33)
[2018-05-07] MEDS: ATORVASTATIN 20 MG TAB PO (09:33)
[2018-05-07] MEDS: ONDANSETRON 4MG/2ML VIAL (J2405) IV (09:33)
[2018-05-07] MEDS: APIXABAN 5 MG TAB (ELIQUIS) PO ×2 (09:33→21:42)
[2018-05-07] MEDS: amLODIPine 5 MG TAB PO (13:01)
[2018-05-07 14:53] LABS: OSMOLALITY URINE 476 MOSM/KG (500-800)
[2018-05-07 15:03] LABS: CHLORIDE,RANDOM URINE 145 MEQ/L; POTASSIUM RANDOM URINE 35.4 MEQ/L; SODIUM,RANDOM URINE 133 MEQ/L
[2018-05-07 18:52] LABS: ANION GAP 10 MEQ/L (8-16); BLOOD UREA NITROGEN 9 MG/DL (7-18); CALCIUM LEVEL 8.2 MG/DL (8.8-10.2); CARBON DIOXIDE LEVEL 23 MEQ/L (21-32); CHLORIDE LEVEL 97 MEQ/L (98-107); CREATININE FOR GFR 0.95 MG/DL (0.70-1.30); GLOMERULAR FILTRATION RATE > 60.0 (>35); GLUCOSE, FASTING 87 MG/DL (70-100); POTASSIUM SERUM 4.2 MEQ/L (3.5-5.1); SODIUM LEVEL 130 MEQ/L (136-145)
[2018-05-08 06:13] LABS: ANION GAP 10 MEQ/L (8-16); BLOOD UREA NITROGEN 8 MG/DL (7-18); CALCIUM LEVEL 7.8 MG/DL (8.8-10.2); CARBON DIOXIDE LEVEL 21 MEQ/L (21-32); CHLORIDE LEVEL 99 MEQ/L (98-107); CREATININE FOR GFR 0.81 MG/DL (0.70-1.30); GLOMERULAR FILTRATION RATE > 60.0 (>35); GLUCOSE, FASTING 73 MG/DL (70-100); POTASSIUM SERUM 3.9 MEQ/L (3.5-5.1); SODIUM LEVEL 130 MEQ/L (136-145)
[2018-05-08] MEDS: ESCITALOPRAM OXALATE 10 MG TAB (LEXAPRO) PO (08:39)
[2018-05-08] MEDS: FINASTERIDE 5 MG TAB PO (08:39)
[2018-05-08] MEDS: amLODIPine 5 MG TAB PO (08:39)
[2018-05-08] MEDS: APIXABAN 5 MG TAB (ELIQUIS) PO ×2 (08:39→20:59)
[2018-05-08] MEDS: LACTULOSE 20 GM/30 ML SYRUP UD PO ×3 (08:40→17:41)
[2018-05-08] MEDS: TOBRADEX OPHTH SUSP 2.5 ML OU ×2 (08:40→21:00)
[2018-05-08] MEDS: ATORVASTATIN 20 MG TAB PO (08:40)
[2018-05-08] MEDS: SENOKOT S TAB PO ×2 (08:40→21:00)
[2018-05-08] MEDS: PANTOPRAZOLE 40MG TAB (PROTONIX) PO ×2 (08:40→20:59)
[2018-05-08] MEDS: TIMOLOL MALEATE 0.5% OPHTH SOLN 5 ML OU ×2 (08:40→21:00)
[2018-05-08] MEDS: MIRALAX *UNIT DOSE* 17GM PACKET PO (08:40)
[2018-05-08 18:18] LABS: ANION GAP 9 MEQ/L (8-16); BLOOD UREA NITROGEN 9 MG/DL (7-18); CALCIUM LEVEL 8.4 MG/DL (8.8-10.2); CARBON DIOXIDE LEVEL 25 MEQ/L (21-32); CHLORIDE LEVEL 96 MEQ/L (98-107); CREATININE FOR GFR 0.96 MG/DL (0.70-1.30); GLOMERULAR FILTRATION RATE > 60.0 (>35); GLUCOSE, FASTING 82 MG/DL (70-100); POTASSIUM SERUM 3.9 MEQ/L (3.5-5.1); SODIUM LEVEL 130 MEQ/L (136-145)
[2018-05-09] MEDS: ATORVASTATIN 20 MG TAB PO (09:10)
[2018-05-09] MEDS: PANTOPRAZOLE 40MG TAB (PROTONIX) PO ×2 (09:10→21:24)
[2018-05-09] MEDS: TIMOLOL MALEATE 0.5% OPHTH SOLN 5 ML OU ×2 (09:11→21:24)
[2018-05-09] MEDS: TOBRADEX OPHTH SUSP 2.5 ML OU ×2 (09:11→21:24)
[2018-05-09] MEDS: SENOKOT S TAB PO ×2 (09:11→21:24)
[2018-05-09] MEDS: amLODIPine 5 MG TAB PO (09:11)
[2018-05-09] MEDS: FINASTERIDE 5 MG TAB PO (09:11)
[2018-05-09] MEDS ORDERED: SLF 3 ML SYR IV (15:30)
[2018-05-09] MEDS: ACETAMINOPHEN TAB 650MG DOSE (2X325MG) PO (15:39)
[2018-05-09] MEDS: SLF 3 ML SYR IV (21:24)
[2018-05-10] MEDS: SLF 3 ML SYR IV ×3 (05:35→20:38)
[2018-05-10 06:50] LABS: HEMATOCRIT 32.2 % (42.0-52.0); HEMOGLOBIN 11.3 g/dl (13.5-17.5); MEAN CORPUSCULAR HEMOGLOBIN 28.3 pg (27.0-33.0); MEAN CORPUSCULAR HGB CONC 35.1 g/dl (32.0-36.5); MEAN CORPUSCULAR VOLUME 80.7 fl (80.0-96.0); PLATELET COUNT, AUTOMATED 184 10^3/uL (150-450); RED BLOOD COUNT 3.99 10^6/uL (4.30-6.10); RED CELL DISTRIBUTION WIDTH 14.6 % (11.5-14.5); WHITE BLOOD COUNT 4.5 10^3/uL (4.0-10.0)
[2018-05-10 07:08] LABS: ANION GAP 8 MEQ/L (8-16); BLOOD UREA NITROGEN 10 MG/DL (7-18); CALCIUM LEVEL 8.5 MG/DL (8.8-10.2); CARBON DIOXIDE LEVEL 24 MEQ/L (21-32); CHLORIDE LEVEL 101 MEQ/L (98-107); CREATININE FOR GFR 0.95 MG/DL (0.70-1.30); GLOMERULAR FILTRATION RATE > 60.0 (>35); GLUCOSE, FASTING 92 MG/DL (70-100); POTASSIUM SERUM 3.7 MEQ/L (3.5-5.1); SODIUM LEVEL 133 MEQ/L (136-145)
[2018-05-10] MEDS: SENOKOT S TAB PO ×2 (09:45→20:37)
[2018-05-10] MEDS: ATORVASTATIN 20 MG TAB PO (09:45)
[2018-05-10] MEDS: PANTOPRAZOLE 40MG TAB (PROTONIX) PO ×2 (09:45→20:37)
[2018-05-10] MEDS: MIRALAX *UNIT DOSE* 17GM PACKET PO (09:45)
[2018-05-10] MEDS: FINASTERIDE 5 MG TAB PO (09:46)
[2018-05-10] MEDS: amLODIPine 5 MG TAB PO (09:46)
[2018-05-10] MEDS: TIMOLOL MALEATE 0.5% OPHTH SOLN 5 ML OU ×2 (09:46→21:00)
[2018-05-10] MEDS: TOBRADEX OPHTH SUSP 2.5 ML OU ×2 (09:46→21:00)
[2018-05-10] MEDS ORDERED: LACTULOSE 20 GM/30 ML SYRUP UD PO (13:15)
[2018-05-10] MEDS: CLOPIDOGREL 75 MG TAB PO (15:48)
[2018-05-10] MEDS: ASPIRIN 81 MG CHEW TABLET PO (15:48)
[2018-05-11] MEDS: SLF 3 ML SYR IV (06:00)
[2018-05-11 07:13] LABS: HEMATOCRIT 33.7 % (42.0-52.0); HEMOGLOBIN 11.6 g/dl (13.5-17.5); MEAN CORPUSCULAR HGB CONC 34.4 g/dl (32.0-36.5); MEAN CORPUSCULAR VOLUME 81.4 fl (80.0-96.0); PLATELET COUNT, AUTOMATED 207 10^3/uL (150-450); RED BLOOD COUNT 4.14 10^6/uL (4.30-6.10); RED CELL DISTRIBUTION WIDTH 14.6 % (11.5-14.5); WHITE BLOOD COUNT 4.1 10^3/uL (4.0-10.0)
[2018-05-11 07:27] LABS: ANION GAP 9 MEQ/L (8-16); BLOOD UREA NITROGEN 11 MG/DL (7-18); CALCIUM LEVEL 8.6 MG/DL (8.8-10.2); CARBON DIOXIDE LEVEL 25 MEQ/L (21-32); CHLORIDE LEVEL 103 MEQ/L (98-107); CREATININE FOR GFR 0.83 MG/DL (0.70-1.30); GLOMERULAR FILTRATION RATE > 60.0 (>35); GLUCOSE, FASTING 94 MG/DL (70-100); MAGNESIUM LEVEL 2.2 MG/DL (1.8-2.4); POTASSIUM SERUM 3.8 MEQ/L (3.5-5.1); SODIUM LEVEL 137 MEQ/L (136-145)
[2018-05-11] MEDS: ASPIRIN 81 MG CHEW TABLET PO (08:52)
[2018-05-11] MEDS: FINASTERIDE 5 MG TAB PO (08:53)
[2018-05-11] MEDS: CLOPIDOGREL 75 MG TAB PO (08:53)
[2018-05-11] MEDS: ATORVASTATIN 20 MG TAB PO (08:53)
[2018-05-11] MEDS: amLODIPine 5 MG TAB PO (08:53)
[2018-05-11] MEDS: SENOKOT S TAB PO (08:53)
[2018-05-11] MEDS: PANTOPRAZOLE 40MG TAB (PROTONIX) PO (08:53)
[2018-05-11] MEDS: TIMOLOL MALEATE 0.5% OPHTH SOLN 5 ML OU (09:38)
[2018-05-11] MEDS: TOBRADEX OPHTH SUSP 2.5 ML OU (09:39)
== END 2018-05-11 14:46 | disposition home or self-care (01) | DRG 68 ==
LOC: M PCU 05-07 00:24 → M MS4PR 05-09 18:39 → M ED 20:01 → M MS4PR 05-09 19:07 → M MS5PR 05-10 16:05 → M ED INP 22:53
DX: I65.23 Occlusion and stenosis of bilateral carotid arteries (principal); E22.2 Syndrome of inappropriate secretion of antidiuretic hormone; I25.10 Atherosclerotic heart disease of native coronary artery without angina pectoris; I48.2 Chronic atrial fibrillation; K59.00 Constipation, unspecified; R41.82 Altered mental status, unspecified; E78.5 Hyperlipidemia, unspecified; I10 Essential (primary) hypertension; K21.9 Gastro-esophageal reflux disease without esophagitis; H54.61 Unqualified visual loss, right eye, normal vision left eye; G25.81 Restless legs syndrome; Z87.891 Personal history of nicotine dependence; Z79.01 Long term (current) use of anticoagulants; Z79.02 Long term (current) use of antithrombotics/antiplatelets; Z79.899 Other long term (current) drug therapy

== ENCOUNTER 2018-05-19 16:29 | Emergency (ER) | payer MEDICARE ==
[2018-05-19 17:14] LABS: BASO % 0.3 % (0.0-1.0); EOS # 0.1 10^3/uL (0.0-0.50); EOS % 1.2 % (0.0-3.0); HEMATOCRIT 35.7 % (42.0-52.0); HEMOGLOBIN 12.1 g/dl (13.5-17.5); IMMATURE GRANULOCYTE % 0.5 % (0-3.0); LYMPH # 1.6 10^3/uL (1.5-4.5); MEAN CORPUSCULAR HEMOGLOBIN 28.8 pg (27.0-33.0); MEAN CORPUSCULAR HGB CONC 33.9 g/dl (32.0-36.5); MONO # 0.6 10^3/uL (0.0-0.8); MONO % 8.7 % (0.0-5.0); NEUTROPHILS # 4.3 10^3/uL (1.8-7.7); NEUTROPHILS % 65.3 % (36.0-66.0); PLATELET COUNT, AUTOMATED 276 10^3/uL (150-450); RED CELL DISTRIBUTION WIDTH 14.4 % (11.5-14.5); WHITE BLOOD COUNT 6.5 10^3/uL (4.0-10.0)
[2018-05-19 17:28] LABS: INR 1.31; PROTHROMBIN TIME 16.5 SECONDS (12.1-14.4)
[2018-05-19] MEDS: GI COCKTAIL 50ML BTL(HYOSCYAMINE/MAALOX/LIDOCAINE VISCOUS)(1:3:1) PO (17:32)
[2018-05-19 17:46] LABS: ALBUMIN 3.6 GM/DL (3.2-5.2); ALBUMIN/GLOBULIN RATIO 1.29 (1.00-1.93); ALKALINE PHOSPHATASE 77 U/L (45-117); ALT/SGPT 24 U/L (12-78); ANION GAP 9 MEQ/L (8-16); AST/SGOT 13 U/L (7-37); BILIRUBIN,DIRECT 0.2 MG/DL (0.0-0.2); BILIRUBIN,TOTAL 0.9 MG/DL (0.2-1.0); BLOOD UREA NITROGEN 17 MG/DL (7-18); CALCIUM LEVEL 8.8 MG/DL (8.8-10.2); CARBON DIOXIDE LEVEL 24 MEQ/L (21-32); CHLORIDE LEVEL 101 MEQ/L (98-107); CPK CREATINE PHOSPHOKINASE 123 U/L (39-308); CREATININE FOR GFR 1.06 MG/DL (0.70-1.30); GLOMERULAR FILTRATION RATE > 60.0 (>35); GLUCOSE, FASTING 96 MG/DL (70-100); LIPASE 169 U/L (73-393); POTASSIUM SERUM 4.3 MEQ/L (3.5-5.1); SODIUM LEVEL 134 MEQ/L (136-145); TOTAL PROTEIN 6.4 GM/DL (6.4-8.2); TROPONIN I < 0.02 NG/ML (< 0.10)
[2018-05-19 17:51] LABS: CK-MB VALUE MASS 3.5 NG/ML (<3.6); MB/CK RELATIVE INDEX 2.84 (< OR =4); NT-PRO BNP 248 PG/ML (<450)
[2018-05-19] MEDS: SUCRALFATE SUSP 1GM/10ML UD PO (18:11)
[2018-05-19] MEDS ORDERED: ISOVUE-370 76% 100ML VIAL (Q9967) As Ordered ×2 (18:14→18:34)
[2018-05-19 22:42] LABS: CK-MB VALUE MASS 3.1 NG/ML (<3.6); CPK CREATINE PHOSPHOKINASE 106 U/L (39-308); MB/CK RELATIVE INDEX 2.92 (< OR =4); TROPONIN I < 0.02 NG/ML (< 0.10)
== END 2018-05-19 23:13 | disposition home or self-care (01) ==
LOC: M ED 16:29
DX: R07.89 Other chest pain (principal); R94.31 Abnormal electrocardiogram [ECG] [EKG]; R06.02 Shortness of breath; K21.9 Gastro-esophageal reflux disease without esophagitis; I10 Essential (primary) hypertension; I48.91 Unspecified atrial fibrillation; E78.5 Hyperlipidemia, unspecified; H40.9 Unspecified glaucoma; Z85.46 Personal history of malignant neoplasm of prostate; Z95.5 Presence of coronary angioplasty implant and graft; Z88.8 Allergy status to other drugs, medicaments and biological substances; Z88.2 Allergy status to sulfonamides; Z79.899 Other long term (current) drug therapy; Z79.82 Long term (current) use of aspirin; Z79.01 Long term (current) use of anticoagulants; Z98.890 Other specified postprocedural states
CPT/HCPCS: Q9967

== ENCOUNTER 2018-10-24 05:59 | Emergency (ER) | payer MEDICARE ==
[~2018-10-24] VITALS: Ht 182.9 cm; Wt 86.4 kg
[~2018-10-24 05:59] MED LIST changes: +AK-T0.3S; -AMLO5TAB2 PO; +AMLO5TAB6 PO; +CHIL81CH2 PO; +CLOP75TA2 PO; -ESCI10TA2; +ESCI10TA2 PO; -FINA5TAB2; +FINA5TAB2 PO; +FLOM0.4C39 PO; -FLOM5CAP PO; +LATA5OPD; +OSEL75CA PO; -PANT40TA2 PO; +PANT40TA3 PO; +PEG1POW PO; +PRESCAP6 PO; +SENN1TAB2 PO; +SUCR1SS PO; +SUCR1TAB56; +TIZA4CAP PO; -TIZA4CAP3 PO; -TOBR3OPD; +TOBRAMYCIN; +TOBRSUS41 OU; +TRAV04OPD OU
[2018-10-24] MEDS ORDERED: ASPIRIN 325 MG TAB PO ONE (06:45)
[2018-10-24 06:54] LABS: BASO % 0.1 % (0.0-1.0); EOS % 0.2 % (0.0-3.0); HEMATOCRIT 30.9 % (42.0-52.0); HEMOGLOBIN 10.1 g/dl (13.5-17.5); LYMPH # 1.5 10^3/uL (1.5-4.5); LYMPH % 13.5 % (24.0-44.0); MEAN CORPUSCULAR HEMOGLOBIN 26.6 pg (27.0-33.0); MEAN CORPUSCULAR HGB CONC 32.7 g/dl (32.0-36.5); MEAN CORPUSCULAR VOLUME 81.3 fl (80.0-96.0); MONO # 0.7 10^3/uL (0.0-0.8); MONO % 6.2 % (0.0-5.0); NEUTROPHILS # 9.1 10^3/uL (1.8-7.7); NEUTROPHILS % 79.1 % (36.0-66.0); PLATELET COUNT, AUTOMATED 260 10^3/uL (150-450); WHITE BLOOD COUNT 11.4 10^3/uL (4.0-10.0)
[2018-10-24 07:04] LABS: INR 1.16
[2018-10-24 07:18] LABS: BLOOD UREA NITROGEN 23 MG/DL (7-18); CALCIUM LEVEL 8.3 MG/DL (8.8-10.2); CARBON DIOXIDE LEVEL 22 MEQ/L (21-32); CHLORIDE LEVEL 106 MEQ/L (98-107); CPK CREATINE PHOSPHOKINASE 51 U/L (39-308); GLOMERULAR FILTRATION RATE > 60.0 (>35); GLUCOSE, FASTING 112 MG/DL (70-100); MB/CK RELATIVE INDEX 3.92 (< OR =4); SODIUM LEVEL 138 MEQ/L (136-145); TROPONIN I < 0.02 NG/ML (< 0.10)
[2018-10-24 10:45] LABS: CPK CREATINE PHOSPHOKINASE 44 U/L (39-308); MB/CK RELATIVE INDEX 4.09 (< OR =4); TROPONIN I < 0.02 NG/ML (< 0.10)
[2018-10-24] MEDS ORDERED: SUCR1SS PO (11:28)
[2018-10-24 12:06] VITALS: BP 188/80
--- NOTE | 2018-10-25 07:28 | ECGEPIP ---
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
== END 2018-10-24 12:18 | disposition home or self-care (01) ==
LOC: M ED 05:59
DX: R07.9 Chest pain, unspecified (principal); I10 Essential (primary) hypertension; E78.5 Hyperlipidemia, unspecified

== ENCOUNTER → 2018-11-05 | Outpatient (REF) | payer MEDICARE ==
[~2018-11-05] MED LIST changes: +AMLO5TAB6; +ASPI81TAEC PO; +DOXA2TAB3 PO; +TIMO0.5S29 OD; -TIMO0.5S29 OU; +TRAV04OPD OD; -TRAV04OPD OU
[2018-11-05 19:34] LABS: APPEARANCE, URINE CLEAR (CLEAR); BACTERIA, URINE AUTO NEGATIVE (NEGATIVE); BILIRUBIN, URINE AUTO NEGATIVE (NEGATIVE); BLOOD, URINE BLOOD NEGATIVE (NEGATIVE); COLOR, URINE YELLOW (YELLOW); GLUCOSE, URINE (UA) AUTO NEGATIVE (NEGATIVE); KETONE, URINE AUTO NEGATIVE (NEGATIVE); LEUKOCYTE ESTERASE, URINE AUTO NEGATIVE (NEGATIVE); MUCUS, URINE SMALL (NEGATIVE); NITRITE, URINE AUTO NEGATIVE (NEGATIVE); PROTEIN, URINE AUTO NEGATIVE (NEGATIVE); RBC, URINE AUTO 1 /HPF (0-3); SPECIFIC GRAVITY URINE AUTO 1.019 (1.002-1.035); SQUAMOUS EPITHELIAL CELL UR AU 0 /HPF (0-6); UROBILINOGEN, URINE AUTO 0.2 mg/dL (0.0-2.0); WBC, URINE AUTO 0 /HPF (0-3)
== END ==
LOC: M SMT 17:48
PROVIDERS: ATTEND Nurse Practitioner Family
DX: R10.30 Lower abdominal pain, unspecified (principal)

== ENCOUNTER 2018-11-29 16:05 | Inpatient (IN) | payer MEDICARE ==
[~2018-11-29] VITALS: Ht 185.4 cm; Wt 91.9 kg
[~2018-11-29 16:05] MED LIST changes: -AMLO5TAB6; -ASPI81TAEC PO; -DOXA2TAB3 PO
[2018-11-29] MEDS ORDERED: AMLO5TAB6 (16:20)
[2018-11-29 16:44] LABS: BASO % 0.1 % (0.0-1.0); EOS # 0.1 10^3/uL (0.0-0.50); EOS % 0.6 % (0.0-3.0); HEMATOCRIT 24.6 % (42.0-52.0); HEMOGLOBIN 8.2 g/dl (13.5-17.5); LYMPH # 0.9 10^3/uL (1.5-4.5); LYMPH % 10.5 % (24.0-44.0); MEAN CORPUSCULAR HEMOGLOBIN 25.4 pg (27.0-33.0); MEAN CORPUSCULAR HGB CONC 33.3 g/dl (32.0-36.5); MEAN CORPUSCULAR VOLUME 76.2 fl (80.0-96.0); MONO # 0.7 10^3/uL (0.0-0.8); MONO % 8.2 % (0.0-5.0); NEUTROPHILS # 6.6 10^3/uL (1.8-7.7); NEUTROPHILS % 80.1 % (36.0-66.0); PLATELET COUNT, AUTOMATED 220 10^3/uL (150-450); RED BLOOD COUNT 3.23 10^6/uL (4.30-6.10); WHITE BLOOD COUNT 8.3 10^3/uL (4.0-10.0)
[2018-11-29] MEDS ORDERED: NS 1,000 ML IV SCH ×2 (17:00→18:00)
[2018-11-29] MEDS ORDERED: ONDANSETRON 4MG/2ML VIAL (J2405) IV ONE (17:00)
[2018-11-29 17:43] LABS: ALBUMIN 3.4 GM/DL (3.2-5.2); ALT/SGPT 21 U/L (12-78); BILIRUBIN,DIRECT 0.2 MG/DL (0.0-0.2); BILIRUBIN,TOTAL 0.7 MG/DL (0.2-1.0); BLOOD UREA NITROGEN 10 MG/DL (7-18); CALCIUM LEVEL 7.8 MG/DL (8.8-10.2); CARBON DIOXIDE LEVEL 23 MEQ/L (21-32); CHLORIDE LEVEL 85 MEQ/L (98-107); CPK CREATINE PHOSPHOKINASE 639 U/L (39-308); CREATININE FOR GFR 0.68 MG/DL (0.70-1.30); GLOMERULAR FILTRATION RATE > 60.0 (>35); GLUCOSE, FASTING 118 MG/DL (70-100); LIPASE 110 U/L (73-393); POTASSIUM SERUM 3.8 MEQ/L (3.5-5.1); SODIUM LEVEL 118 MEQ/L (136-145); TOTAL PROTEIN 5.7 GM/DL (6.4-8.2); TROPONIN I < 0.02 NG/ML (< 0.10)
--- NOTE | 2018-11-29 18:05 | REP ---
ABDOMEN, FLAT AND UPRIGHT, PA CHEST: HISTORY: Chest and abdominal pain. COMPARISON: 05/19/2018 Air is present in small and large intestine. There are no air fluid levels or dilated loops of intestine. There is no pneumoperitoneum. Bilateral apical pleural thickening is present. IMPRESSION: Nonspecific bowel gas pattern. Electronically Signed by Yasir Calderon MD 11/29/2018 06:14 P
--- NOTE | 2018-11-29 18:17 | ECGEPIP ---
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
[2018-11-29] MEDS ORDERED: CHARCOAL ACTIVATED LIQUID 25 GM/120 ML BTL PO ONE (18:30)
--- NOTE | 2018-11-29 18:48 | REP ---
CT Head without contrast HISTORY: Fall COMPARISON: 05/06/2018 Areas of decreased attenuation are present in the periventricular and subcortical white matter. This represents small-vessel ischemic disease. There is no intraparenchymal hemorrhage, acute infarct, mass or midline shift. The ventricular system and cortical sulci are dilated consistent with moderate volume loss. A suprasellar arachnoid cyst is present. The arachnoid cyst measures 2.4 cm in transverse by 1.8 cm in AP dimensions and is unchanged in size compared to the previous study. There is partial erosion of the dorsum sella , posterior clinoids and sphenoid bone. This is unchanged compared to the previous study. There is no extra cerebral collection. There is no fracture. The visualized sinuses are clear. IMPRESSION: 1. Small vessel ischemic disease. 2. Moderate volume loss. 3. 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 Electronically Signed by Yasir Calderon MD 11/29/2018 06:40 P
[2018-11-29 18:52] LABS: POTASSIUM RANDOM URINE 47.3 MEQ/L
[2018-11-29 20:10] LABS: BLOOD UREA NITROGEN 10 MG/DL (7-18); CALCIUM LEVEL 7.7 MG/DL (8.8-10.2); CARBON DIOXIDE LEVEL 23 MEQ/L (21-32); CHLORIDE LEVEL 87 MEQ/L (98-107); CREATININE FOR GFR 0.59 MG/DL (0.70-1.30); GLOMERULAR FILTRATION RATE > 60.0 (>35); GLUCOSE, FASTING 104 MG/DL (70-100); POTASSIUM SERUM 3.8 MEQ/L (3.5-5.1); SODIUM LEVEL 119 MEQ/L (136-145)
[2018-11-29 20:37] LABS: OSMOLALITY SERUM 239 MOSM/KG (280-301)
[2018-11-29] MEDS ORDERED: amLODIPine 5 MG TAB PO ONE ×2 (21:00→23:45)
[2018-11-29] MEDS ORDERED: PANTOPRAZOLE 40MG INJ (PROTONIX) (C9113) IV ONE (21:00)
[2018-11-29] MEDS ORDERED: ACETAMINOPHEN TAB 650MG DOSE (2X325MG) PO PRN (21:15)
[2018-11-29] MEDS ORDERED: AMLO5TAB6 PO (21:21)
[2018-11-29] MEDS ORDERED: ELIQ5TAB PO (21:21)
[2018-11-29] MEDS ORDERED: ASPI81TAEC PO (21:21)
[2018-11-29] MEDS ORDERED: ESCI10TA2 PO (21:21)
[2018-11-29] MEDS ORDERED: DOXA2TAB3 PO (21:21)
[2018-11-29] MEDS: TIMOLOL MALEATE 0.5% OPHTH SOLN 5 ML OD SCH (23:00)
[2018-11-29] MEDS: LATANOPROST 0.005% OPHTH SOLN 2.5 ML OD SCH (23:00)
[2018-11-29 23:11] VITALS: BP 210/90
[2018-11-29 23:30] VITALS: BP 167/74
[2018-11-29] MEDS ORDERED: ONDANSETRON 4MG/2ML VIAL (J2405) IV PRN (23:45)
[2018-11-30] VITALS (12 sets, daily range): BP systolic 71–149; BP diastolic 34–72
--- NOTE | 2018-11-30 00:02 | HPE ---
DATE OF ADMISSION: 11/29/2018 PRIMARY CARE PROVIDER: Dr. Gill ATTENDING PHYSICIAN: Naseem Ellis MD. CHIEF COMPLAINT: Confusion. HISTORY OF PRESENT ILLNESS: The patient is an 88-year-old white male with several chronic medical conditions presented to the hospital for evaluation of confusion. The patient is a poor historian. He cannot provide any useful information. History is provided by his son, who is in the emergency room (ER) with him. Per the son, the patient is living by himself in a fci apartment. In the last few days, he complains of dizziness. Yesterday, he fell at home and he had some mild contusion in his right arm. Also, in the last two to three days, he become very confused and worsening lethargy. So, the family decided to bring him to the hospital for further evaluation. Of note, he was here back to April after here for the confusion, as well as episode of hyponatremia. In the emergency room (ER), his blood had indicated sodium down 119, otherwise he did not find any significant changes. So medicine service called for admission. REVIEW OF SYSTEMS: Not available due to confusion PAST MEDICAL HISTORY: 1. Hyponatremia due to syndrome of inappropriate antidiuretic hormone secretion. 2. Coronary artery disease. 3. Chronic atrial fibrillation on Eliquis. 4. Bilateral carotid artery stenosis. 5. Dyslipidemia. 6. Hypertension. 7. Acid reflux. 8. Restless leg syndrome. SURGICAL HISTORY: Cardiac stents. SOCIAL HISTORY: He is an ex-smoker, but quit many years. No alcohol abuse. No illicit drug abuse. He lives by himself and he is a full code. FAMILY HISTORY: Both parents many years ago. ALLERGIES: No known drug allergies. MEDICATIONS: - amlodipine 5 mg by mouth daily - Eliquis 5 mg by mouth twice a day - aspirin 81 mg by mouth daily - atorvastatin 20 mg by mouth daily - finasteride 5 mg by mouth daily - Protonix 40 mg bilateral d - Carafate 1 gram 4 times a day PHYSICAL EXAMINATION: VITALS: Temperature is 98.6, heart rate is 63, respirations 20, blood pressure 180/85, oxygen saturation is 98% on room air. GENERAL: He is awake, alert, but he is a little bit confused. His was only oriented to the people and the time, but not place. HEENT: Atraumatic. Pupils equal, round and reactive to light. Extraocular muscles intact. No jaundice. Ears, nose and throat: Normal. Mouth: Mucosa not dry. NECK: No jugular venous distension (JVD), no bruits. LUNGS: Clear. No wheezing, no crackles. HEART: S1, S2, irregular, but no murmur. Not tachycardiac. ABDOMEN: Soft, bowel sounds positive, nontender. LOWER EXTREMITIES: No edema in bilateral lower extremities. NEUROLOGICAL: Nonfocal. SKIN: No rash. PSYCHOLOGICAL: No acute psychosis, except a little bit confused. DIAGNOSTIC LABORATORY STUDY INCLUDED THE FOLLOWING: Complete blood count (CBC) and differential: White blood count (WBC) 8.3, hemoglobin and hematocrit 8.2/24.6, platelets 220. Sodium 118, potassium 3.8, chloride 85, bicarbonate 23, BUN 10, creatinine 0.[address] Head CT without acute changes. Chest x-ray unremarkable. IMPRESSION: 1. Altered mental status. 2. Severe hyponatremia likely due to syndrome of inappropriate antidiuretic hormone secretion. 3. Hypertension. 4. Dyslipidemia. 5. History of coronary artery disease. PLAN: The patient will be admitted to the PCU for close monitoring. Since his hyponatremia is due to syndrome of inappropriate antidiuretic hormone secretion, as well as without neurological symptoms, except mild confusion, so will start him on fluid restriction less than 1 liter per day and will monitor his sodium level closely every 4 hours to try to avoid over correction of his sodium level and will continue his routine home medications and will get physical therapy (PT) evaluation. Addendum Since his Na is still 118 this AM, will give him 1L normal saline and start NaCl at 1 gram BID. MTDD
[2018-11-30] MEDS: APIXABAN 5 MG TAB (ELIQUIS) PO SCH ×3 (00:12→20:16)
[2018-11-30 01:22] LABS: BLOOD UREA NITROGEN 8 MG/DL (7-18); CALCIUM LEVEL 7.7 MG/DL (8.8-10.2); CARBON DIOXIDE LEVEL 21 MEQ/L (21-32); CHLORIDE LEVEL 89 MEQ/L (98-107); CREATININE FOR GFR 0.66 MG/DL (0.70-1.30); GLOMERULAR FILTRATION RATE > 60.0 (>35); GLUCOSE, FASTING 98 MG/DL (70-100); POTASSIUM SERUM 3.8 MEQ/L (3.5-5.1); SODIUM LEVEL 120 MEQ/L (136-145)
[2018-11-30 05:05] LABS: HEMATOCRIT 23.3 % (42.0-52.0); HEMOGLOBIN 7.9 g/dl (13.5-17.5); MEAN CORPUSCULAR HEMOGLOBIN 25.6 pg (27.0-33.0); MEAN CORPUSCULAR HGB CONC 33.9 g/dl (32.0-36.5); MEAN CORPUSCULAR VOLUME 75.6 fl (80.0-96.0); PLATELET COUNT, AUTOMATED 199 10^3/uL (150-450); RED BLOOD COUNT 3.08 10^6/uL (4.30-6.10); WHITE BLOOD COUNT 7.6 10^3/uL (4.0-10.0)
[2018-11-30 05:56] LABS: BLOOD UREA NITROGEN 9 MG/DL (7-18); CALCIUM LEVEL 7.5 MG/DL (8.8-10.2); CARBON DIOXIDE LEVEL 21 MEQ/L (21-32); CHLORIDE LEVEL 88 MEQ/L (98-107); CREATININE FOR GFR 0.68 MG/DL (0.70-1.30); GLOMERULAR FILTRATION RATE > 60.0 (>35); GLUCOSE, FASTING 84 MG/DL (70-100); POTASSIUM SERUM 3.8 MEQ/L (3.5-5.1); SODIUM LEVEL 118 MEQ/L (136-145)
[2018-11-30] MEDS ORDERED: NS 1,000 ML IV SCH (06:30)
[2018-11-30] MEDS: ASPIRIN 81 MG ENTERIC TAB PO SCH (08:28)
[2018-11-30] MEDS: PANTOPRAZOLE 40MG TAB (PROTONIX) PO SCH ×2 (08:28→20:16)
[2018-11-30] MEDS: FINASTERIDE 5 MG TAB PO SCH (08:28)
[2018-11-30] MEDS: ATORVASTATIN 20 MG TAB PO SCH (08:28)
[2018-11-30] MEDS: THIAMINE 100 MG TAB PO SCH (08:28)
[2018-11-30] MEDS: DOXAZOSIN MESYLATE 1 MG TAB PO SCH (08:29)
[2018-11-30] MEDS: TIMOLOL MALEATE 0.5% OPHTH SOLN 5 ML OD SCH ×3 (08:30→20:16)
[2018-11-30] MEDS ORDERED: amLODIPine 5 MG TAB PO SCH (09:00)
[2018-11-30] MEDS ORDERED: ESCITALOPRAM OXALATE 10 MG TAB (LEXAPRO) PO SCH (09:00)
[2018-11-30] MEDS ORDERED: SODIUM CHLORIDE 1 GM TAB PO SCH (09:00)
[2018-11-30] MEDS ORDERED: ENOXAPARIN 40 MG/0.4 ML SYRINGE (J1650) SC SCH ×2 (09:00)
[2018-11-30] MEDS ORDERED: amLODIPine 10 MG TAB PO SCH (09:00)
[2018-11-30 09:46] LABS: BLOOD UREA NITROGEN 8 MG/DL (7-18); CALCIUM LEVEL 7.6 MG/DL (8.8-10.2); CARBON DIOXIDE LEVEL 24 MEQ/L (21-32); CHLORIDE LEVEL 87 MEQ/L (98-107); CREATININE FOR GFR 0.68 MG/DL (0.70-1.30); GLOMERULAR FILTRATION RATE > 60.0 (>35); GLUCOSE, FASTING 87 MG/DL (70-100); POTASSIUM SERUM 3.7 MEQ/L (3.5-5.1); SODIUM LEVEL 119 MEQ/L (136-145)
[2018-11-30] MEDS ORDERED: SODIUM CHLORIDE 3% 500 ML IV SCH (11:00)
[2018-11-30 11:02] LABS: URIC ACID 1.6 MG/DL (3.5-7.2)
[2018-11-30 11:59] LABS: ABG BASE EXCESS -3.8 (-2.0-2.0); ABG HCO3 19.4 MEQ/L (22.0-26.0); ABG O2 SATURATION 97.8 % (95.0-99.0); ABG PARTIAL PRESSURE CO2 28.4 mmHg (35.0-45.0); ABG PARTIAL PRESSURE O2 96.8 mmHg (75.0-100.0); ABG STANDARD HCO3 21.3 MEQ/L (22.0-26.0); ABG TOTAL CO2 20.3 MEQ/L (23.0-31.0); ABG pH (ARTERIAL) 7.453 UNITS (7.350-7.450)
[2018-11-30 12:23] LABS: BASO % 0.4 % (0.0-1.0); EOS # 0.1 10^3/uL (0.0-0.50); HEMATOCRIT 22.8 % (42.0-52.0); HEMOGLOBIN 7.7 g/dl (13.5-17.5); LYMPH # 0.9 10^3/uL (1.5-4.5); LYMPH % 13.4 % (24.0-44.0); MEAN CORPUSCULAR HEMOGLOBIN 25.5 pg (27.0-33.0); MEAN CORPUSCULAR HGB CONC 33.8 g/dl (32.0-36.5); MEAN CORPUSCULAR VOLUME 75.5 fl (80.0-96.0); MONO # 0.7 10^3/uL (0.0-0.8); MONO % 10.2 % (0.0-5.0); NEUTROPHILS # 5.1 10^3/uL (1.8-7.7); NEUTROPHILS % 72.8 % (36.0-66.0); PLATELET COUNT, AUTOMATED 202 10^3/uL (150-450); RED BLOOD COUNT 3.02 10^6/uL (4.30-6.10); WHITE BLOOD COUNT 6.9 10^3/uL (4.0-10.0)
[2018-11-30 14:02] LABS: ALBUMIN 2.9 GM/DL (3.2-5.2); ALT/SGPT 23 U/L (12-78); BILIRUBIN,TOTAL 0.8 MG/DL (0.2-1.0); BLOOD UREA NITROGEN 10 MG/DL (7-18); CALCIUM LEVEL 7.6 MG/DL (8.8-10.2); CARBON DIOXIDE LEVEL 22 MEQ/L (21-32); CHLORIDE LEVEL 88 MEQ/L (98-107); CREATININE FOR GFR 0.77 MG/DL (0.70-1.30); GLOMERULAR FILTRATION RATE > 60.0 (>35); GLUCOSE, FASTING 85 MG/DL (70-100); POTASSIUM SERUM 3.8 MEQ/L (3.5-5.1); SODIUM LEVEL 118 MEQ/L (136-145); TOTAL PROTEIN 5.4 GM/DL (6.4-8.2)
[2018-11-30 15:07] LABS: BLOOD UREA NITROGEN 9 MG/DL (7-18); CARBON DIOXIDE LEVEL 21 MEQ/L (21-32); CHLORIDE LEVEL 89 MEQ/L (98-107); CREATININE FOR GFR 0.81 MG/DL (0.70-1.30); GLOMERULAR FILTRATION RATE > 60.0 (>35); GLUCOSE, FASTING 89 MG/DL (70-100); POTASSIUM SERUM 3.7 MEQ/L (3.5-5.1); SODIUM LEVEL 120 MEQ/L (136-145)
[2018-11-30 15:11] LABS: PERCENT SATURATION 9.5 % (19.7-50.0)
[2018-11-30 15:38] LABS: FOLATE 21.8 NG/ML (>5.4)
--- NOTE | 2018-11-30 16:20 | IPNPDOC ---
Text Note Date of Service The patient was seen on 11/30/18. NOTE Subjective: Patient's is oriented to person and place however is confused. Is unable to give an adequate history. States he had fallen on his right forearm, however denies any pain in the region. Presented with hyponatremia. Patient did note that he has not been eating and drinking very well with the past few days. Feels dehydrated. Objective: Vitals: (see below) General: No acute distress, laying comfortably in bed. HEENT: Dry mucous membranes. Neck: No JVD or lymphadenopathy Cardiac: RRR, No murmurs Pulm: Clear to auscultation b/l. No wheezing, rhonchi Abd: NT/ND + BS Ext: No edema or cyanosis. Right forearm abrasion. No bleeding or signs of infection. Distal pulses intact. Neuro: Strength 5/5 BUE and BLE. CN 2-12 intact. F to N intact Negative pronator drift. Alert and oriented 2 (person and place). Labs (see below) Images: CT head on 11/29/18 IMPRESSION: 1. Small vessel ischemic disease. 2. Moderate volume loss. 3. 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 Assessment/Plan 1. 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 Patient presenting with sodium 118, confusion, and fall. Patient had been on IV fluids. Nephrology consulted. Started on hypertonic saline. We'll continue to monitor serial BMP, as well as mental status. Neuro checks every [address] head (see above). We'll continue to monitor in ICU. 2. Anemia. Patient with baseline hemoglobin approximately 11. And drifting down. And no acute sources of bleeding. CT of the abdomen and pelvis pending to rule out retroperitoneal bleed as patient is on anticoagulation. Questionable dilutional component.Will transfuse 1 unit PRBC. Continue to monitor. Anemia panel sent. 3.Hypertension. Patient's systolic blood pressure was initially in the 90s however it is improving. 4. Chronic Issues: 1. History of atrial fibrillation on eliquis. Rate controlled. 2. History of bilateral carotid artery stenosis 3. History of coronary artery disease status post PCI. On aspirin and statin. Will need close outpatient follow-up with cardiology. 4. History of restless leg syndrome DVT prophy:on Eliquis Overall prognosis guarded. VS,Fishbone, I+O VS, Fishbone, I+O Laboratory Tests 11/29/18 16:31 Red Blood Count 3.23 L, Mean Corpuscular Volume 76.2 L, Mean Corpuscular Hemoglobin 25.4 L, Mean Corpuscular Hemoglobin Concent 33.3, Red Cell Distribution Width 14.0, Neutrophils (%) (Auto) 80.1 H, Lymphocytes (%) (Auto) 10.5 L, Monocytes (%) (Auto) 8.2 H, Eosinophils (%) (Auto) 0.6, Basophils (%) (Auto) 0.1, Neutrophils # (Auto) 6.6, Lymphocytes # (Auto) 0.9 L, Monocytes # (Auto) 0.7, Eosinophils # (Auto) 0.1, Basophils # (Auto) 0.0 11/29/18 19:41 Calcium Level 7.7 L 11/30/18 00:56 Calcium Level 7.7 L 11/30/18 04:55 Red Blood Count 3.08 L, Mean Corpuscular Volume 75.6 L, Mean Corpuscular Hemoglobin 25.6 L, Mean Corpuscular Hemoglobin Concent 33.9, Red Cell Distribution Width 14.1, Calcium Level 7.5 L 11/30/18 08:58 Calcium Level 7.6 L 11/30/18 12:02 Red Blood Count 3.02 L, Mean Corpuscular Volume 75.5 L, Mean Corpuscular Hemoglobin 25.5 L, Mean Corpuscular Hemoglobin Concent 33.8, Red Cell Distribution Width 14.3, Neutrophils (%) (Auto) 72.8 H, Lymphocytes (%) (Auto) 13.4 L, Monocytes (%) (Auto) 10.2 H, Eosinophils (%) (Auto) 2.0, Basophils (%) (Auto) 0.4, Neutrophils # (Auto) 5.1, Lymphocytes # (Auto) 0.9 L, Monocytes # (Auto) 0.7, Eosinophils # (Auto) 0.1, Basophils # (Auto) 0.0 11/30/18 12:51 Calcium Level 7.6 L, Aspartate Amino Transf (AST/SGOT) 62 H, Alanine Aminotransferase (ALT/SGPT) 23, Alkaline Phosphatase 68, Total Bilirubin 0.8, Total Protein 5.4 L, Albumin 2.9 L 11/30/18 14:26 Calcium Level 8.0 L Vital Signs Date Time Temp Pulse Resp B/P (MAP) Pulse Ox O2 Delivery O2 Flow Rate FiO2 11/30/18 12:00 96.7 65 18 97/56 (70) 96 11/29/18 16:21 Room Air I&O- Last 24 Hours up to 6 AM 11/30/18 06:00 Intake Total 240 ml Output Total 250 ml Balance -10 ml JUAN ALBERTO ZAVALETA MD Nov 30, 2018 16:20
--- NOTE | 2018-11-30 18:06 | REP ---
SINGLE VIEW CHEST: This study is compared to that on 08/21/2012. The heart shows some increase of size but this may be due to the AP technique. The aorta is tortuous with calcified plaques. There are no mass lesions or other abnormalities. IMPRESSION: Borderline heart size. No significant other changes. Unreviewed
[2018-11-30 18:20] LABS: BLOOD UREA NITROGEN 9 MG/DL (7-18); CALCIUM LEVEL 7.8 MG/DL (8.8-10.2); CARBON DIOXIDE LEVEL 21 MEQ/L (21-32); CHLORIDE LEVEL 90 MEQ/L (98-107); GLOMERULAR FILTRATION RATE > 60.0 (>35); GLUCOSE, FASTING 87 MG/DL (70-100); POTASSIUM SERUM 3.9 MEQ/L (3.5-5.1); SODIUM LEVEL 121 MEQ/L (136-145)
--- NOTE | 2018-11-30 19:14 | CR ---
DATE OF CONSULTATION: 11/30/2018 NEPHROLOGY CONSULTATION FOR: Naseem Ellis MD REASON FOR CONSULTATION: Hyponatremia. HISTORY OF PRESENT ILLNESS: Mr. Guevara is an 88-year-old gentleman who was admitted last evening with confusion and weakness. He was found to have hyponatremia with sodium level of 118. A nephrology consultation was requested, and the patient is seen this morning. I did get a call from the emergency room physician also last night and discussed the case with him. This morning hospitalist service called for consult. PAST MEDICAL: Significant for: 1. 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 2. Coronary artery disease. 3. Chronic atrial fibrillation, on Eliquis 4. Bilateral carotid artery stenosis. 5. Dyslipidemia. 6. Hypertension. 7. Gastroesophageal reflux disease. 8. Restless leg syndrome. PAST SURGICAL HISTORY: Significant for coronary angioplasty with stents. PERSONAL AND SOCIAL HISTORY: The patient is an ex-smoker. No history of known alcohol or drug use. He lives by himself in [facility]. FAMILY HISTORY: Nothing remarkable or relevant. ALLERGIES: No known drug allergies. MEDICATIONS: His home medications include Eliquis 5 mg twice a day, amlodipine 5 mg daily, aspirin 81 mg daily, atorvastatin 20 mg daily, Proscar 5 mg daily, Protonix 40 mg daily and Carafate 1 gram four times a day. REVIEW OF SYSTEMS: The patient is quite confused and disoriented and not able to provide any accurate information. He is able to have a conversation; however, mostly he does not make much sense. So at this point, a reliable review of systems is not possible. PHYSICAL EXAMINATION: Elderly male lying in the bed in intensive care unit. No acute distress noted. Temperature is 96.7 degrees Fahrenheit, heart rate 62 per minute, and respiratory rate 18 per minute. Blood pressure about 98/50 mmHg and oxygen saturation 97% on room air. Head is atraumatic. Neck is supple and jugular venous distention (JVD) is not abnormally elevated. There is no oral thrush or ulcers. Pupils are equal and reactive to light and sclerae anicteric. Heart sounds are regular and lungs sound clear to auscultation with diminished breath sounds at right base. Abdomen: Soft and nontender and without a palpable organomegaly. Bowel sounds are normal. Extremities have no cyanosis or clubbing. There is a bruise and laceration on right forearm, which the patient states is from the fall about a week ago. No peripheral edema noted. Neurologically he is awake and confused, disoriented but without a focal deficit. He is able to move all his limbs. LABORATORY DATA: His initial labs showed a sodium level 118 and potassium 3.8. Chloride 85, CO2 23, BUN 10 and creatinine 0.68. Glucose 118 and calcium 7.8. Troponin less than 0.02, albumin 3.4 and total protein 5.7. A TSH level was 0.47. Repeat labs just after midnight showed a sodium level of 120 and potassium 3.8. Again, at 4:55 a.m. today, sodium was again down to 118. The rest of chemistry was unchanged. Urine sodium was 130 and urine osmolality 546. Urinalysis was unremarkable. WBC count on admission 8.3, hemoglobin 8.2 and hematocrit 24.6. A repeat hemoglobin this morning is 7.9 and hematocrit 23.3. PROBLEMS: 1. Hyponatremia. According to the history, the patient has chronic hyponatremia with SIADH. He is somewhat confused and not able to provide any information accurately. He is not on any diuretic at home and does not look clinically dehydrated. His urine sodium and osmolality is high. Will check a uric acid level and treat him with hypertonic saline. He did receive IV normal saline, which did not make any effect on his serum sodium level. We will start with hypertonic saline 30 mL per hour and check his electrolytes every 4 hours. 2. Anemia. The patient has been on chronic anticoagulation and most likely has acute or chronic blood loss anemia. His iron studies have been ordered. He is likely to require transfusion because of significant anemia. Will get a CT scan of abdomen and pelvis to rule out any possibility of retroperitoneal hematoma as he does have history of falls. 3. Hypotension. Blood pressure has been low, and I would suggest to hold his amlodipine. He has not been on any diuretic. I am going to stop amlodipine completely and will restart at a lower dose if needed once his blood pressure improves. Thank you for involving me in the care of Mr. Guevara. I will follow him along with you.
[2018-11-30] MEDS: LATANOPROST 0.005% OPHTH SOLN 2.5 ML OD SCH (20:17)
[2018-11-30 22:16] LABS: BLOOD UREA NITROGEN 8 MG/DL (7-18); CALCIUM LEVEL 7.6 MG/DL (8.8-10.2); CARBON DIOXIDE LEVEL 20 MEQ/L (21-32); CHLORIDE LEVEL 92 MEQ/L (98-107); CREATININE FOR GFR 0.74 MG/DL (0.70-1.30); GLOMERULAR FILTRATION RATE > 60.0 (>35); GLUCOSE, FASTING 83 MG/DL (70-100); POTASSIUM SERUM 3.9 MEQ/L (3.5-5.1); SODIUM LEVEL 123 MEQ/L (136-145)
[2018-12-01] VITALS: BP 118/57
[2018-12-01 02:23] LABS: BLOOD UREA NITROGEN 8 MG/DL (7-18); CALCIUM LEVEL 7.8 MG/DL (8.8-10.2); CARBON DIOXIDE LEVEL 21 MEQ/L (21-32); CHLORIDE LEVEL 93 MEQ/L (98-107); CREATININE FOR GFR 0.74 MG/DL (0.70-1.30); GLOMERULAR FILTRATION RATE > 60.0 (>35); GLUCOSE, FASTING 73 MG/DL (70-100); POTASSIUM SERUM 3.8 MEQ/L (3.5-5.1); SODIUM LEVEL 124 MEQ/L (136-145)
[2018-12-01 04:00] VITALS: BP 114/56
[2018-12-01 06:38] LABS: HEMOGLOBIN 8.4 g/dl (13.5-17.5); MEAN CORPUSCULAR HEMOGLOBIN 25.8 pg (27.0-33.0); MEAN CORPUSCULAR HGB CONC 33.6 g/dl (32.0-36.5); MEAN CORPUSCULAR VOLUME 76.9 fl (80.0-96.0); PLATELET COUNT, AUTOMATED 177 10^3/uL (150-450); RED BLOOD COUNT 3.25 10^6/uL (4.30-6.10)
[2018-12-01 06:52] LABS: BLOOD UREA NITROGEN 8 MG/DL (7-18); CALCIUM LEVEL 7.5 MG/DL (8.8-10.2); CARBON DIOXIDE LEVEL 20 MEQ/L (21-32); CHLORIDE LEVEL 94 MEQ/L (98-107); CREATININE FOR GFR 0.78 MG/DL (0.70-1.30); GLOMERULAR FILTRATION RATE > 60.0 (>35); GLUCOSE, FASTING 77 MG/DL (70-100); POTASSIUM SERUM 3.7 MEQ/L (3.5-5.1); SODIUM LEVEL 122 MEQ/L (136-145)
[2018-12-01 08:00] VITALS: BP 118/58
[2018-12-01] MEDS ORDERED: POTASSIUM CHLORIDE 10 MEQ SR TABLET PO ONE (08:30)
[2018-12-01] MEDS ORDERED: FUROSEMIDE 40 MG/4 ML VIAL (J1940) IV ONE (08:30)
[2018-12-01] MEDS: DOXAZOSIN MESYLATE 1 MG TAB PO SCH (08:49)
[2018-12-01] MEDS: ATORVASTATIN 20 MG TAB PO SCH (08:49)
[2018-12-01] MEDS: FINASTERIDE 5 MG TAB PO SCH (08:50)
[2018-12-01] MEDS: PANTOPRAZOLE 40MG TAB (PROTONIX) PO SCH ×2 (08:50→20:00)
[2018-12-01] MEDS: APIXABAN 5 MG TAB (ELIQUIS) PO SCH ×2 (08:50→20:00)
[2018-12-01] MEDS: THIAMINE 100 MG TAB PO SCH (08:50)
[2018-12-01] MEDS: TIMOLOL MALEATE 0.5% OPHTH SOLN 5 ML OD SCH ×2 (08:51→18:11)
[2018-12-01] MEDS: ASPIRIN 81 MG ENTERIC TAB PO SCH (08:51)
[2018-12-01 12:00] VITALS: BP 110/56
[2018-12-01 12:30] LABS: BLOOD UREA NITROGEN 8 MG/DL (7-18); CALCIUM LEVEL 7.7 MG/DL (8.8-10.2); CARBON DIOXIDE LEVEL 24 MEQ/L (21-32); CHLORIDE LEVEL 92 MEQ/L (98-107); CREATININE FOR GFR 0.95 MG/DL (0.70-1.30); GLOMERULAR FILTRATION RATE > 60.0 (>35); GLUCOSE, FASTING 79 MG/DL (70-100); POTASSIUM SERUM 3.8 MEQ/L (3.5-5.1); SODIUM LEVEL 124 MEQ/L (136-145)
--- NOTE | 2018-12-01 13:39 | IPNPDOC ---
Text Note Date of Service The patient was seen on 12/01/18. NOTE Subjective: Pt is mildly confused today however feels better. Objective: Vitals: (see below) General: No acute distress, laying comfortably in bed. HEENT: Dry mucous membranes. Neck: No JVD or lymphadenopathy Cardiac: RRR, No murmurs Pulm: Clear to auscultation b/l. No wheezing, rhonchi Abd: NT/ND + BS Ext: No edema or cyanosis. Right forearm abrasion. No bleeding or signs of infection. Distal pulses intact. Neuro: Strength 5/5 BUE and BLE. CN 2-12 intact. F to N intact Negative pronator drift. Alert and oriented 2 (person and place). However mildly confused. Labs (see below) Images: CT head on 11/29/18 IMPRESSION: 1. Small vessel ischemic disease. 2. Moderate volume loss. 3. 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 Assessment/Plan 1. 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 Patient presenting with sodium 118, confusion, and fall. Patient had been on IV fluids. Nephrology consulted. Status post hypertonic saline. We'll continue to monitor serial BMP, as well as mental status. Neuro checks every [address] head (see above). We'll continue to monitor in ICU. Started on Lasix 1, sodium tablets per nephrology. 2. Anemia. Patient with baseline hemoglobin approximately 11. And drifting down. And no acute sources of bleeding. CT of the abdomen and pelvis pending to rule out retroperitoneal bleed as patient is on anticoagulation. Questionable dilutional component.status post 1 unit PRBC. Continue to monitor. Anemia panel sent. Stable. 3.Hypertension. Stable. Chronic Issues: 1. History of atrial fibrillation on eliquis. Rate controlled. 2. History of bilateral carotid artery stenosis 3. History of coronary artery disease status post PCI. On aspirin and statin. Will need close outpatient follow-up with cardiology. 4. History of restless leg syndrome DVT prophy:on Eliquis Overall prognosis guarded. PT ordered. VS,Fishbone, I+O VS, Fishbone, I+O Laboratory Tests 11/30/18 14:26 Calcium Level 8.0 L 11/30/18 17:49 Calcium Level 7.8 L 11/30/18 21:46 Calcium Level 7.6 L 12/01/18 01:54 Calcium Level 7.8 L 12/01/18 06:27 Red Blood Count 3.25 L, Mean Corpuscular Volume 76.9 L, Mean Corpuscular Hemoglobin 25.8 L, Mean Corpuscular Hemoglobin Concent 33.6, Red Cell Distribution Width 14.4, Calcium Level 7.5 L 12/01/18 11:45 Calcium Level 7.7 L Vital Signs Date Time Temp Pulse Resp B/P (MAP) Pulse Ox O2 Delivery O2 Flow Rate FiO2 12/01/18 12:00 97.7 59 20 110/56 (74) 94 11/29/18 16:21 Room Air I&O- Last 24 Hours up to 6 AM 12/01/18 06:00 Intake Total 1452.5 ml Output Total 500 ml Balance 952.5 ml JUAN ALBERTO ZAVALETA MD Dec 01, 2018 13:39
[2018-12-01] MEDS: SODIUM CHLORIDE 1 GM TAB PO SCH ×2 (15:48→20:00)
[2018-12-01 16:00] VITALS: BP 117/56
[2018-12-01 16:49] LABS: BLOOD UREA NITROGEN 10 MG/DL (7-18); CARBON DIOXIDE LEVEL 24 MEQ/L (21-32); CHLORIDE LEVEL 93 MEQ/L (98-107); CREATININE FOR GFR 0.97 MG/DL (0.70-1.30); GLOMERULAR FILTRATION RATE > 60.0 (>35); GLUCOSE, FASTING 83 MG/DL (70-100); POTASSIUM SERUM 4.4 MEQ/L (3.5-5.1); SODIUM LEVEL 125 MEQ/L (136-145)
[2018-12-01 20:00] VITALS: BP 123/70
[2018-12-01] MEDS: LATANOPROST 0.005% OPHTH SOLN 2.5 ML OD SCH (20:00)
[2018-12-01 20:19] LABS: BLOOD UREA NITROGEN 9 MG/DL (7-18); CALCIUM LEVEL 7.8 MG/DL (8.8-10.2); CARBON DIOXIDE LEVEL 23 MEQ/L (21-32); CHLORIDE LEVEL 93 MEQ/L (98-107); GLOMERULAR FILTRATION RATE > 60.0 (>35); GLUCOSE, FASTING 83 MG/DL (70-100); POTASSIUM SERUM 3.9 MEQ/L (3.5-5.1); SODIUM LEVEL 126 MEQ/L (136-145)
--- NOTE | 2018-12-01 23:47 | IPN ---
DATE: 12/01/2018 Mr. Guevara is seen this morning on his bedside in intensive care unit. He was seen yesterday for severe hyponatremia and we treated him with 3% hypertonic saline. Last evening his sodium level improved to 124 and hypertonic saline was stopped at midnight. The patient remains confused and disoriented. He is not able to provide much useful information. Nursing staff reports that he has been incontinent and urine output could not be recorded accurately. The patient has no dyspnea or peripheral edema. PHYSICAL EXAMINATION: VITAL SIGNS: Temperature 97.7 degrees Fahrenheit, heart rate 60 per minute and respiratory rate 20 per minute. Blood pressure 110/56 mmHg and oxygen saturation 94% on room air. HEENT: His head is atraumatic. Neck is supple and jugular venous distention (JVD) is not abnormally elevated. HEART: Sounds are regular. LUNGS: Lungs with moderate bilateral air entry and poor. ABDOMEN: Abdomen is nontender and bowel sounds are normal. EXTREMITIES: Extremities have no cyanosis or clubbing. NEUROLOGICAL: Neurologically he is confused and disoriented but able to move all extremities. LABORATORIES: This morning's labs showed sodium 122 and potassium 3.7 while last night/iv technician at about 02:00 a.m. his sodium was 124 and potassium 3.8. His BUN was 8 and creatinine 0.78. This morning, hemoglobin is 8.4 and hematocrit 25.0 after transfusion of 1 unit of packed red blood cells (RBCs) yesterday. 1. Hyponatremia. Sodium level improved with hypertonic saline up to 124 last night and this morning is 122. We are going to recheck his sodium level now and consider making further changes. I am going to start him on oral sodium chloride tablets 1 gram three times a day. He was also given one dose of Lasix 40 mg this morning. His electrolytes will be checked every four hours for next several hours. 2. Urinary incontinence. We are unable to monitor his urine output which is critical to his care due to severe hyponatremia, intravenous (IV) fluids and Lasix being given. We will get a Cardenas catheter placed for accurate urine output. 3. Anemia. He did have one unit of packed red blood cells transfused yesterday and anemia has improved. No urgent intervention is indicated at present.
[2018-12-02] VITALS: BP 132/72
[2018-12-02 04:00] VITALS: BP 135/58
[2018-12-02 04:48] LABS: HEMATOCRIT 26.5 % (42.0-52.0); HEMOGLOBIN 8.6 g/dl (13.5-17.5); MEAN CORPUSCULAR HEMOGLOBIN 25.5 pg (27.0-33.0); MEAN CORPUSCULAR HGB CONC 32.5 g/dl (32.0-36.5); MEAN CORPUSCULAR VOLUME 78.6 fl (80.0-96.0); PLATELET COUNT, AUTOMATED 189 10^3/uL (150-450); RED BLOOD COUNT 3.37 10^6/uL (4.30-6.10); WHITE BLOOD COUNT 6.3 10^3/uL (4.0-10.0)
[2018-12-02 05:08] LABS: ALBUMIN 2.8 GM/DL (3.2-5.2); BLOOD UREA NITROGEN 12 MG/DL (7-18); CALCIUM LEVEL 7.8 MG/DL (8.8-10.2); CARBON DIOXIDE LEVEL 21 MEQ/L (21-32); CHLORIDE LEVEL 94 MEQ/L (98-107); CREATININE FOR GFR 0.92 MG/DL (0.70-1.30); GLOMERULAR FILTRATION RATE > 60.0 (>35); GLUCOSE, FASTING 72 MG/DL (70-100); POTASSIUM SERUM 3.4 MEQ/L (3.5-5.1); SODIUM LEVEL 125 MEQ/L (136-145)
[2018-12-02] MEDS ORDERED: POTASSIUM CHLORIDE 10 MEQ SR TABLET PO ONE (07:30)
[2018-12-02 08:00] VITALS: BP 118/56
[2018-12-02] MEDS: THIAMINE 100 MG TAB PO SCH (08:43)
[2018-12-02] MEDS: ATORVASTATIN 20 MG TAB PO SCH (08:44)
[2018-12-02] MEDS: PANTOPRAZOLE 40MG TAB (PROTONIX) PO SCH ×2 (08:44→20:37)
[2018-12-02] MEDS: ASPIRIN 81 MG ENTERIC TAB PO SCH (08:44)
[2018-12-02] MEDS: DOXAZOSIN MESYLATE 1 MG TAB PO SCH (08:44)
[2018-12-02] MEDS: SODIUM CHLORIDE 1 GM TAB PO SCH ×3 (08:44→20:38)
[2018-12-02] MEDS: APIXABAN 5 MG TAB (ELIQUIS) PO SCH ×2 (08:44→20:37)
[2018-12-02] MEDS: FINASTERIDE 5 MG TAB PO SCH (08:44)
[2018-12-02] MEDS: TIMOLOL MALEATE 0.5% OPHTH SOLN 5 ML OD SCH ×2 (08:45→20:38)
--- NOTE | 2018-12-02 10:16 | IPNPDOC ---
Text Note Date of Service The patient was seen on 12/02/18. NOTE Subjective: Confused this am. Follows commands. Not eating very much. Objective: Vitals: (see below) General: No acute distress, laying comfortably in bed. HEENT: Dry mucous membranes. Neck: No JVD or lymphadenopathy Cardiac: RRR, No murmurs Pulm: Clear to auscultation b/l. No wheezing, rhonchi Abd: NT/ND + BS Ext: No edema or cyanosis. Right forearm abrasion. No bleeding or signs of infection. Distal pulses intact. Neuro: Strength 5/5 BUE and BLE. CN 2-12 intact. F to N intact Negative pronator drift. Alert and oriented 2 (person and place). However mildly confused. Labs (see below) Images: CT head on 11/29/18 IMPRESSION: 1. Small vessel ischemic disease. 2. Moderate volume loss. 3. 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 Assessment/Plan 1. 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 Patient presenting with sodium 118, confusion, and fall. Patient had been on IV fluids. Nephrology consulted. Status post hypertonic saline. We'll continue to monitor serial BMP, as well as mental status. Neuro checks every [address] head (see above). We'll continue to monitor in ICU. Started on Lasix 1, sodium tablets per nephrology. 2. Anemia. Patient with baseline hemoglobin approximately 11. And drifting down. And no acute sources of bleeding. CT of the abdomen and pelvis pending to rule out retroperitoneal bleed as patient is on anticoagulation. Questionable dilutional component.status post 1 unit PRBC. Continue to monitor. Anemia panel sent. Stable. 3.Hypertension. Stable. 4. Metabolic encephalopathy - ? 2/2 hyponatremia. ?Underlying dementia. CT head (see above). Ammonia,b12 wnl. MRI pending. 5. Hypokalemia replaced. 6. Chronic anemia. Hemoglobin stable. Anemia panel sent. No bleeding at this time. Continue to monitor. No need for transfusion at this time. Will need close outpatient follow-up with PCP. Chronic Issues: 1. History of atrial fibrillation on eliquis. Rate controlled. 2. History of bilateral carotid artery stenosis 3. History of coronary artery disease status post PCI. On aspirin and statin. Will need close outpatient follow-up with cardiology. 4. History of restless leg syndrome DVT prophy:on Eliquis Overall prognosis guarded. PT ordered. VS,Fishbone, I+O VS, Fishbone, I+O Laboratory Tests 12/01/18 11:45 Calcium Level 7.7 L 12/01/18 15:56 Calcium Level 8.0 L 12/01/18 19:50 Calcium Level 7.8 L 12/02/18 04:36 Red Blood Count 3.37 L, Mean Corpuscular Volume 78.6 L, Mean Corpuscular Hemoglobin 25.5 L, Mean Corpuscular Hemoglobin Concent 32.5, Red Cell Distribution Width 14.8 H, Anion Gap 10 Vital Signs Date Time Temp Pulse Resp B/P (MAP) Pulse Ox O2 Delivery O2 Flow Rate FiO2 12/02/18 08:44 118/56 12/02/18 08:00 97.6 61 20 94 11/29/18 16:21 Room Air I&O- Last 24 Hours up to 6 AM 12/02/18 06:00 Intake Total 625 ml Output Total 985 ml Balance -360 ml JUAN ALBERTO ZAVALETA MD Dec 02, 2018 10:16
--- NOTE | 2018-12-02 11:22 | REP ---
CT of the brain without IV contrast: Comparison is 11/29/2018. There is no hemorrhage, edema, mass effect or midline shift. The ventricles and sulci are enlarged, unchanged, compatible with diffuse volume loss. There is a suprasellar arachnoid cyst, unchanged in size with partial erosion of the dorsum sella, posterior clinoids and sphenoid bone, unchanged. There is heterogeneity in the point matter compatible with chronic microvascular ischemia. Impression: There is no hemorrhage, acute infarct or mass. There is a suprasellar arachnoid cyst as described, unchanged. There is diffuse volume loss, unchanged. There is chronic microvascular ischemia, unchanged. Electronically Signed by Kwame Jenkins MD 12/02/2018 11:14 A
[2018-12-02 12:00] VITALS: BP 117/55
--- NOTE | 2018-12-02 12:19 | REP ---
CT NECK WITHOUT CONTRAST: HISTORY: Carotid artery repair. The naso-, abdullahi- and hypopharynx, larynx and subglottic trachea are normal in appearance. The salivary and thyroid glands are normal in size and density. Small lymph nodes less than 1 cm in size are present in the internal jugular chains, posterior triangles and submandibular areas. Atherosclerotic calcification is present at the right carotid bifurcation. Multiple surgical clips are present along the left common carotid and left internal carotid artery. Degenerative change is present in the cervical spine. The lung apices are clear. The visualized sinuses are clear. IMPRESSION: There is no neck mass or adenopathy. Electronically Signed by Yasir Calderon MD 12/03/2018 09:01 A
--- NOTE | 2018-12-02 12:39 | REP ---
Cervical spine AP and lateral views: There are multiple surgical homeostasis clips in the soft tissues on the left compatible with carotid surgery. Discussing with the nursing staff in the ICU reveals the surgery was probably in the late . Therefore, these are likely stainless steel surgical clips . MRI is contraindicated in this patient. Impression: Surgical homeostasis clips in the soft tissue on the left, likely stainless steel clips. MRI is contraindicated. Electronically Signed by Kwame Jenkins MD 12/02/2018 12:30 P
[2018-12-02 13:00] LABS: ABG BASE EXCESS -4.1 (-2.0-2.0); ABG HCO3 19.1 MEQ/L (22.0-26.0); ABG O2 SATURATION 97.9 % (95.0-99.0); ABG PARTIAL PRESSURE CO2 28.2 mmHg (35.0-45.0); ABG STANDARD HCO3 21.1 MEQ/L (22.0-26.0); ABG TOTAL CO2 19.9 MEQ/L (23.0-31.0); ABG pH (ARTERIAL) 7.448 UNITS (7.350-7.450)
[2018-12-02] MEDS: KCL 20MEQ IN D5/NS 1000ML 1,000 ML IV SCH ×2 (13:12→23:48)
[2018-12-02 15:40] VITALS: BP 133/56
[2018-12-02 16:34] LABS: BLOOD UREA NITROGEN 15 MG/DL (7-18); CARBON DIOXIDE LEVEL 21 MEQ/L (21-32); CHLORIDE LEVEL 97 MEQ/L (98-107); GLOMERULAR FILTRATION RATE > 60.0 (>35); GLUCOSE, FASTING 96 MG/DL (70-100); POTASSIUM SERUM 3.9 MEQ/L (3.5-5.1); SODIUM LEVEL 126 MEQ/L (136-145)
[2018-12-02 20:00] VITALS: BP 139/63
[2018-12-02] MEDS: LATANOPROST 0.005% OPHTH SOLN 2.5 ML OD SCH (20:38)
[2018-12-03] VITALS: BP 132/65
[2018-12-03 04:00] VITALS: BP 146/67
[2018-12-03 05:27] LABS: HEMATOCRIT 25.1 % (42.0-52.0); HEMOGLOBIN 8.3 g/dl (13.5-17.5); MEAN CORPUSCULAR HEMOGLOBIN 25.9 pg (27.0-33.0); MEAN CORPUSCULAR HGB CONC 33.1 g/dl (32.0-36.5); MEAN CORPUSCULAR VOLUME 78.4 fl (80.0-96.0); PLATELET COUNT, AUTOMATED 201 10^3/uL (150-450)
[2018-12-03 05:49] LABS: ALBUMIN 2.7 GM/DL (3.2-5.2); BLOOD UREA NITROGEN 10 MG/DL (7-18); CALCIUM LEVEL 7.7 MG/DL (8.8-10.2); CARBON DIOXIDE LEVEL 21 MEQ/L (21-32); CHLORIDE LEVEL 101 MEQ/L (98-107); CREATININE FOR GFR 0.88 MG/DL (0.70-1.30); GLOMERULAR FILTRATION RATE > 60.0 (>35); GLUCOSE, FASTING 111 MG/DL (70-100); PHOSPHORUS LEVEL 2.8 MG/DL (2.5-4.9); SODIUM LEVEL 130 MEQ/L (136-145)
--- NOTE | 2018-12-03 07:58 | IPN ---
DATE: 12/02/2018 Mr. Guevara is seen this morning on his bedside in intensive care unit. He has been confused and disoriented, but today he is more somnolent and poorly responsive. He is going to radiology for a CAT scan of his head due to worsening altered mentation. He has been treated for severe hyponatremia and sodium level has improved nicely from 118 on admission to about 125 in 24 hours. He did not have too many fluctuations and sodium level has improved in a safe fashion. The patient is not able to provide much information PHYSICAL EXAMINATION: The patient is somnolent and poorly responsive. His temperature is 97.7 degrees Fahrenheit, heart rate 60 per minute and respiratory rate 20 per minute. Blood pressure 117/55 mmHg and oxygen saturation 95%. His head is atraumatic. His left pupil is irregular due to prior surgery. Right pupil is small. His oral mucosa is dry. Neck is supple and there is no JVD or thyroid enlargement. His heart sounds are regular and lungs have poor inspiratory effort. Abdomen is soft and bowel sounds are present. Extremities: Without any cyanosis or clubbing. Skin: Without any rash or ulcers. Neurologically he has been confused, disoriented and unable to answer questions today. Today's labs show WBC count 6.3, hemoglobin 8.6 and hematocrit 26.5. Platelets 189. Sodium 125, potassium 3.4, chloride 94, CO2 21, BUN 12 and creatinine 0.92. PROBLEMS: 1. Hyponatremia. Sodium level has improved nicely since admission and in the first 24 hours it improved only about 6 mEq. Since last evening to this morning, it improved only about 2 mEq. The patient has worsening altered mentation and he is going to have a repeat CT scan of head and neck. He is not suitable candidate for MRI as the patient is not able to provide any information about any pieces of metal in his body. In any event, his hyponatremia is improving nicely and slowly and we will continue with oral sodium chloride supplement for now. Initially, he was treated with hypertonic saline which has been now stopped. His oral intake is minimal now and I am going to start him on D5 and normal saline with potassium chloride supplement. His electrolytes will be checked again tomorrow morning. 2. Hypokalemia. This is related to poor oral intake. We will add some potassium in the IV fluid and recheck his electrolytes tomorrow morning. 3. Altered mentation. I do not feel that his altered mentation is related to hyponatremia. It is probably toxic metabolic, however, small strokes need to be ruled out. He is going to have another CAT scan done. He does not seem to have any acute infections. 4. Anemia. His anemia improved after transfusion. At this point, there is no emergent indication for another transfusion. NIKKI
[2018-12-03 08:00] VITALS: BP 119/58
[2018-12-03] MEDS: ASPIRIN 81 MG ENTERIC TAB PO SCH (09:21)
[2018-12-03] MEDS: SODIUM CHLORIDE 1 GM TAB PO SCH ×3 (09:21→23:11)
[2018-12-03] MEDS: DOXAZOSIN MESYLATE 1 MG TAB PO SCH (09:21)
[2018-12-03] MEDS: PANTOPRAZOLE 40MG TAB (PROTONIX) PO SCH ×2 (09:22→23:11)
[2018-12-03] MEDS: APIXABAN 5 MG TAB (ELIQUIS) PO SCH ×2 (09:22→23:11)
[2018-12-03] MEDS: ATORVASTATIN 20 MG TAB PO SCH (09:22)
[2018-12-03] MEDS: FINASTERIDE 5 MG TAB PO SCH (09:22)
[2018-12-03] MEDS: THIAMINE 100 MG TAB PO SCH (09:22)
[2018-12-03] MEDS: TIMOLOL MALEATE 0.5% OPHTH SOLN 5 ML OD SCH ×2 (09:23→23:09)
[2018-12-03] MEDS: KCL 20MEQ IN D5/NS 1000ML 1,000 ML IV SCH (10:39)
[2018-12-03 12:00] VITALS: BP 96/36
--- NOTE | 2018-12-03 13:15 | REP ---
CT STUDY OF THE ABDOMEN AND PELVIS WITHOUT CONTRAST: This study is compared with that on 11/01/2016. The lung bases are essentially unremarkable. There is some dependent atelectasis. The heart is unremarkable except for except for excessive coronary artery calcifications. On the abdominal views, the interposition of bowel between the liver and the diaphragm is again identified. There is a left hepatic cyst and also a right renal cyst. Some diverticula are seen in the colon. In the right upper quadrant located anteriorly, there is considerable blurring and suggestion of artifact. This finding is confirmed particularly in the lateral view where there is almost a step formation of the anterior wall. The mesentery shows slight increase in density. The remaining examination of the abdomen and pelvis is unremarkable. IMPRESSION: The findings of the right upper quadrant may all be artifactual. There are diverticula of the colon, hepatic and right renal cysts. These findings should be correlated clinically. Suggest a chest study. Unreviewed
--- NOTE | 2018-12-03 13:57 | IPNPDOC ---
Text Note Date of Service The patient was seen on 12/03/18. NOTE Subjective: Patient is still confused this am. Follows commands, moving all e xtremities. I have asked to see pt today. Objective: Vitals: (see below) General: No acute distress, laying comfortably in bed. HEENT: Dry mucous membranes. Neck: No JVD or lymphadenopathy Cardiac: RRR, No murmurs Pulm: Clear to auscultation b/l. No wheezing, rhonchi Abd: NT/ND + BS Ext: No edema or cyanosis. Right forearm abrasion. No bleeding or signs of infection. Distal pulses intact. Neuro: Strength 5/5 BUE and BLE. CN 2-12 intact. F to N intact Negative pronator drift. Alert and oriented 1 (person). Labs (see below) Images: CT head on 11/29/18 IMPRESSION: 1. Small vessel ischemic disease. 2. Moderate volume loss. 3. 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 Assessment/Plan 1. 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 Patient presenting with sodium 118, confusion, and fall. Patient had been on IV fluids. Nephrology consulted. Status post hypertonic saline. We'll continue to monitor serial BMP, as well as mental status. Neuro checks every [address] head (see above). We'll continue to monitor in ICU. Started on Lasix 1, sodium tablets per nephrology. 2. Anemia. Patient with baseline hemoglobin approximately 11. And drifting down. And no acute sources of bleeding. CT of the abdomen and pelvis pending to rule out retroperitoneal bleed as patient is on anticoagulation. Questionable diluti onal component.status post 1 unit PRBC. Continue to monitor. Anemia panel sent. Stable. 3.Hypertension. Stable. 4. Metabolic encephalopathy - ? 2/2 hyponatremia. ?Underlying dementia. CT head (see above). Ammonia,b12 wnl. EEG ordered. Unable to obtain MRI brain per radiologist given prior clips. Dr. Cunningham consulted. 5. Hypokalemia replaced. 6. Chronic anemia. Hemoglobin stable. Anemia panel sent. No bleeding at this time. Continue to monitor. No need for transfusion at this time. Will need close outpatient follow-up with PCP. Chronic Issues: 1. History of atrial fibrillation on eliquis. Rate controlled. 2. History of bilateral carotid artery stenosis 3. History of coronary artery disease status post PCI. On aspirin and statin. Will need close outpatient follow-up with cardiology. 4. History of restless leg syndrome DVT prophy:on Eliquis Overall prognosis guarded. PT ordered. VS,Fishbone, I+O VS, Fishbone, I+O Laboratory Tests 12/02/18 15:52 Calcium Level 8.0 L 12/03/18 04:57 Red Blood Count 3.20 L, Mean Corpuscular Volume 78.4 L, Mean Corpuscular Hemoglobin 25.9 L, Mean Corpuscular Hemoglobin Concent 33.1, Red Cell Distribution Width 15.2 H, Anion Gap 8 Vital Signs Date Time Temp Pulse Resp B/P (MAP) Pulse Ox O2 Delivery O2 Flow Rate FiO2 12/03/18 12:00 97.6 59 18 96/36 (56) 95 11/29/18 16:21 Room Air I&O- Last 24 Hours up to 6 AM 12/03/18 06:00 Intake Total 1070 ml Output Total 1390 ml Balance -320 ml JUAN ALBERTO ZAVALETA MD Dec 03, 2018 13:57
[2018-12-03 16:20] VITALS: BP 120/60
--- NOTE | 2018-12-03 17:10 | EEG ---
DATE OF PROCEDURE: 12/03/2018 REFERRING PHYSICIAN: Dr. Naseem Ellis DIAGNOSIS: Rule out seizure, altered mental status. EEG NUMBER: [id number] HISTORY: The patient is an 88-year-old man who was admitted at [facility] due to altered mental status. He is confused and at times disoriented. This EEG was done to rule out epileptic potential and assess degree of encephalopathy. He is currently taking aspirin, Lipitor, doxazosin, Proscar, Eliquis, etc. TECHNICAL DESCRIPTION: This digital EEG was recorded by 21 scalp, ear, and two EKG electrodes, and was reviewed in bipolar and referential montages following reformatting in 10-20 international electrode placement system. INTERPRETATION: The patient was noted to be in awake and drowsy states during this EEG. Resting awake background rhythm consisted of 4-5 hertz theta activity measuring 15-40 microvolts in amplitude, which was symmetric bilaterally. Stage I and II sleep were reviewed and were symmetric bilaterally. Hyperventilation could not be performed. Photic stimulation remained unremarkable. EKG revealed sinus rhythm. No focal, lateralizing, or epileptiform abnormalities were seen. No clinical or electrographic seizures were recorded. CONCLUSION: This EEG in awake, drowsy states, stage I and II sleep is abnormal due to presence of generalized slowing and disorganization of background consistent with nonspecific diffuse cerebral dysfunction such as seen in encephalopathy and dementia due to multiple potential causes. No epileptiform abnormalities were seen. Clinical correlation is recommended.
[2018-12-03 20:00] VITALS: BP 138/63
[2018-12-03] MEDS: LATANOPROST 0.005% OPHTH SOLN 2.5 ML OD SCH (23:10)
[2018-12-04] VITALS (7 sets, daily range): BP systolic 122–161; BP diastolic 56–77
--- NOTE | 2018-12-04 07:44 | IPN ---
DATE OF SERVICE: 12/04/2018 SUBJECTIVE: The patient was seen and examined at the bedside today morning. He was actually sitting on the sofa. He is more awake and alert today. He was able to communicate and answer questions. His sodium level is significantly better. Sodium is up to 130 today. He continues to be on iron, gentle IV fluid hydration, and oral salt tablets. OBJECTIVE: VITAL SIGNS: Temperature is 97.6 degrees Fahrenheit, blood pressure 96/36, pulse is 59, respiratory rate of 18, saturating 95% on room air. INTAKE/OUTPUT: Urine output recorded as 1.2 liters yesterday, 1 liter so far today since overnight. Weight in the bed scale is 98.1 kg. PHYSICAL EXAMINATION: GENERAL: The patient is awake, alert, oriented times three, sitting up on the sofa, in no apparent distress. HEAD AND NECK EXAM: Extraocular muscles intact. Pupils equally round and reactive to light. Mucous membranes are moist. Neck is supple. There is no jugular venous distention (JVD). CARDIOVASCULAR: S1, S2, regular rate. No edema of the bilateral lower extremities. RESPIRATORY: Chest is clear to auscultation bilaterally. Bilateral equal air entry. No rales or rhonchi. ABDOMEN: Abdomen is soft. Positive bowel sounds, nontender. No organomegaly. MUSCULOSKELETAL: No clubbing or cyanosis. Pulses are 2+. CENTRAL NERVOUS SYSTEM: Patient is very hard of hearing. Otherwise he is oriented times three and following commands. LAB REVIEW: CBC showed a WBC of 6, hemoglobin 8.3, platelets are 201. BMP showed sodium 130, potassium 4, chloride 101, bicarbonate 21, BUN 10, creatinine is 0.88, calcium 7.7, phosphorus is 2.8. IMAGING: A CAT scan of the head was done yesterday which showed no hemorrhage, infarct, or a mass. He has a suprasellar arachnoid cyst which is unchanged in appearance. CURRENT INPATIENT MEDICATIONS: The patient's medications were all reviewed by me. He was getting D5 normal saline plus 20 mEq of KCl at 80 mL and hour. He is also on salt tablet 1 gram by mouth three times a day. No other change in the medications today as compared with yesterday. ASSESSMENT AND PLAN: 1. Hyponatremia. 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 Patient chronically had hyponatremia, continue the salt tablets. He was given gentle IV fluid hydration yesterday because he had altered mental status and he was unable to take an liquids. Patient is more awake and alert now. I am going to stop the IV fluids today afternoon. Sodium level is nicely improved to 130. Continue to monitor for now. 2. Hypokalemia. Potassium level is nicely improved to 4 with potassium in the IV fluid. No further need of IV potassium at this point. 3. Suprasellar arachnoid cyst. 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 Patient needs to be evaluated by neurosurgery as outpatient once he is discharged from the hospital. 4. Metabolic encephalopathy. Patient is clinically significantly better. He is able to communicate and answer questions. CAT scan was done yesterday which showed no significant acute infarct or bleed.
[2018-12-04] MEDS: APIXABAN 5 MG TAB (ELIQUIS) PO SCH ×2 (10:59→22:18)
[2018-12-04] MEDS: THIAMINE 100 MG TAB PO SCH (10:59)
[2018-12-04] MEDS: PANTOPRAZOLE 40MG TAB (PROTONIX) PO SCH ×2 (10:59→22:19)
[2018-12-04] MEDS: DOXAZOSIN MESYLATE 1 MG TAB PO SCH (10:59)
[2018-12-04] MEDS: ASPIRIN 81 MG ENTERIC TAB PO SCH (11:00)
[2018-12-04] MEDS: FINASTERIDE 5 MG TAB PO SCH (11:00)
[2018-12-04] MEDS: SODIUM CHLORIDE 1 GM TAB PO SCH ×3 (11:00→22:18)
[2018-12-04] MEDS: ATORVASTATIN 20 MG TAB PO SCH (11:00)
[2018-12-04] MEDS: TIMOLOL MALEATE 0.5% OPHTH SOLN 5 ML OD SCH ×2 (11:00→22:19)
[2018-12-04 11:30] LABS: ALBUMIN 2.9 GM/DL (3.2-5.2); BLOOD UREA NITROGEN 9 MG/DL (7-18); CALCIUM LEVEL 7.8 MG/DL (8.8-10.2); CARBON DIOXIDE LEVEL 23 MEQ/L (21-32); CHLORIDE LEVEL 102 MEQ/L (98-107); CREATININE FOR GFR 0.89 MG/DL (0.70-1.30); GLOMERULAR FILTRATION RATE > 60.0 (>35); GLUCOSE, FASTING 103 MG/DL (70-100); PHOSPHORUS LEVEL 2.9 MG/DL (2.5-4.9); SODIUM LEVEL 134 MEQ/L (136-145)
[2018-12-04] MEDS: FUROSEMIDE 10MG PER 1/2 TABLET PO SCH (17:00)
--- NOTE | 2018-12-04 17:15 | CR ---
DATE OF CONSULTATION: 12/04/2018 REFERRING PROVIDER: Dr. Naseem Ellis REASON FOR CONSULTATION: Metabolic encephalopathy. The patient is an 88-year-old male patient with past history documented past episodic hyponatremia resulting in delirium, confusion. The patient has had three prior admissions to [facility] with similar findings. The patient usually takes about 1 week to improve once his hyponatremia is treated and resolved. 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 The patient continues to show improvement during his hospital course with treatment with salt tablets and gradual improvement in hyponatremia. His sodium on presentation was 118 and is improved to 130. The patient as per his son at bedside is continuing to show improvement today compared to yesterday. The patient himself is able to follow commands, answer most questions appropriately, although he does not know where he is. He can answer what month it is and states the year is 19, but cannot tell whether it is 2018 or 1919. The patient does not have any focal deficits on neurological exam. He is able to move his face symmetrically, arms and legs symmetrically. He does not have any aphasia or dysarthria. The patient was found to have fallen at home. His son reports that he has had progressive decline in cognition since last Monday. By he was sleeping in the intermediate apartment past 8:00 a.m. as per nursing staff. This was unusual for him so his son found him to be altered in his mentation. REVIEW OF SYSTEMS: 14-point review of systems obtained and is negative except as per history of present illness (HPI). PAST MEDICAL HISTORY: 1. 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 2. Coronary artery disease. 3. Chronic atrial fibrillation on Eliquis. 4. Bilateral carotid stenosis. 4. Dyslipidemia, hypertension. 5. Acid reflux. .6. Restless leg syndrome. PAST SURGICAL HISTORY: Cardiac stent placement. SOCIAL HISTORY: Patient is a former smoker. Denies use of any alcohol or illicit drugs. FAMILY HISTORY: Noncontributory. ALLERGIES: No known drug allergies. HOME MEDICATIONS: - amlodipine 5 mg by mouth daily - Eliquis 5 mg by mouth twice a day = aspirin 81 mg by mouth daily - atorvastatin 20 mg by mouth daily - finasteride 5 mg by mouth daily - Protonix 40 mg by mouth daily - Carafate 1 gram by mouth four times a day PHYSICAL EXAMINATION: Blood pressure 96/36, pulse rate 59, respiratory rate is 18, temperature is 97.6 degrees Fahrenheit, oxygenation 95% on room air. The patient is awake and alert, oriented to person and month but not to location and not accurately to the year. The patient is able to follow commands. He does not have any dysarthria or dysphasia. He does not have any aphasia. Pupils are reactive to light. Extraocular movements are intact in all directions without nystagmus. Sensation V1, V2, V3 is intact to light touch. No facial asymmetry to activation. Palate elevates symmetrically. Tongue is midline. No weakness of sternocleidomastoids bilaterally. There is no pronator drift. Strength is 5/5 including bilateral deltoids, biceps, triceps, handgrip, iliopsoas, quadriceps, anterior tibialis. Deep tendon reflexes are 2s throughout with reduced Achilles reflexes. Sensory is intact to light touch in all four extremities. Coordination without any gross ataxia or dysmetria. ASSESSMENT: 1. Metabolic encephalopathy secondary to severe hyponatremia, sodium 118 on presentation. The patient has had at least 3-4 episodes of sudden hyponatremia over the last 5 years. The patient does have an incidental finding of a supratentorial cyst thought to be arachnoid cyst by two different reading radiologists. Most surgeons would likely leave the arachnoid cyst alone as it will likely remain. It is unclear without MRI if the patient's cyst is a pituitary cyst, possible Rathke cleft cyst or other etiologies. Apparently the patient has surgical clips and our radiologists have stated he cannot have an MRI at our facility. Certainly an outpatient neurosurgical evaluation can be set up, although a patient at the age of 88 with baseline dementia, intermittent delirium due to episodic metabolic encephalopathy may not be an ideal candidate for surgery. PLAN: Continue to treat primary metabolic cause of encephalopathy, specifically hyponatremia. Gradually the patient is showing improvement as he has similarly done in two prior admissions. Physical therapy/occupational therapy (PT/OT) evaluation. Continue supportive care. History obtained from both the patient and the patient's son.
[2018-12-04 17:33] LABS: ABG PARTIAL PRESSURE CO2 27.8 mmHg (35.0-45.0); ABG PARTIAL PRESSURE O2 73.4 mmHg (75.0-100.0); ABG TOTAL CO2 19.8 MEQ/L (23.0-31.0); ABG pH (ARTERIAL) 7.452 UNITS (7.350-7.450)
[2018-12-04 17:34] LABS: ABG BASE EXCESS -4.2 (-2.0-2.0); ABG O2 SATURATION 94.7 % (95.0-99.0)
[2018-12-04 17:35] LABS: ABG STANDARD HCO3 20.9 MEQ/L (22.0-26.0)
--- NOTE | 2018-12-04 21:19 | IPN ---
DATE: 12/04/2018 The patient is seen and examined. No acute events overnight. Still appearing lethargic but alert and responding to questions and follows commands. Denies any chest pain, pressure or discomfort. Denies any fevers or chills. VITAL SIGNS: Temperature 99.3, pulse 63, respirations 18, blood pressure 122/62, pulse oximetry 92% on room air. LABORATORY DATA: WBC 6, hemoglobin and hematocrit 8.3/25.1, platelets 201. Chemistry: Sodium 134, potassium 4.0, chloride 102, bicarbonate 23, BUN 9, creatinine 0.89. PHYSICAL EXAMINATION: GENERAL: The patient is alert, comfortable, mildly lethargic, in no acute distress. HEENT: Moist mucous membranes. NECK: Supple. CARDIAC: Regular. S1, S2. PULMONARY: Bilaterally clear. ABDOMEN: Soft, nontender. Positive bowel sounds. EXTREMITIES: No clubbing. No edema in bilateral lower extremities. Right forearm abrasion, no bleeding. Distal pulses intact. NEUROLOGIC: Cranial nerves II-XII grossly intact. Able to move bilateral upper and lower extremities. ASSESSMENT AND PLAN: This is an 88-year-old male patient with underlying medical history of episodic hyponatremia secondary to syndrome of inappropriate antidiuretic hormone secretion (SIADH), coronary artery disease, atrial fibrillation on Eliquis, bilateral carotid artery stenosis, dyslipidemia, hypertension, gastroesophageal reflux disease (GERD), restless legs, who presented with confusion, encephalopathy. 1. 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 Case was discussed with Dr. Rankin of neurology. The patient's sodium has improved, as well as mental status. serial neuro checks. Serial BMP has improved, almost back to baseline. Is on Lasix. Nephrology consulted. Case was also discussed with neurosurgery, Dr. Jacque Del Toro. Dr. Jacque Del Toro agreed with outpatient neurosurgery followup given the patient's symptoms have improved. CT scan findings were discussed. 2. Anemia. Monitor hemoglobin and hematocrit, possibly dilutional. Was transfused 1 unit of packed red blood cells. No evidence of bleeding at this time. 3. Hypertension. Currently stable. Continue Lasix. 4. Paroxysmal atrial fibrillation. Continue Eliquis, aspirin. The patient is not on any beta blockers. 5. Benign prostatic hypertrophy (BPH). Continue current medications. 6. Dyslipidemia. Continue statin. 7. Metabolic encephalopathy, possibly secondary to hyponatremia. CT scan appreciated. Electroencephalogram (EEG) shows evidence of encephalopathy. Ammonia and B12 within normal limits. Neurology consulted. Physical therapy (PT) and occupational therapy (OT). 8. Hypokalemia. Supplemented. 9. Carotid artery disease. Continue Eliquis. Continue aspirin. Continue statin. 10. Coronary arterial disease, status post PCI. Continue aspirin and statin. The patient is also on Eliquis. Outpatient followup. 11. Restless legs. Continue current medications. Outpatient followup. 12. Deep vein thrombosis (DVT) prophylaxis. The patient is on Eliquis. DISPOSITION: Pending physical therapy. Needs outpatient neurosurgery referral. NIKKI
[2018-12-04] MEDS: LATANOPROST 0.005% OPHTH SOLN 2.5 ML OD SCH (22:19)
[2018-12-05] VITALS: BP 131/67
[2018-12-05 04:00] VITALS: BP 134/63
[2018-12-05 05:55] LABS: HEMATOCRIT 23.6 % (42.0-52.0); HEMOGLOBIN 7.7 g/dl (13.5-17.5); MEAN CORPUSCULAR HEMOGLOBIN 25.8 pg (27.0-33.0); MEAN CORPUSCULAR HGB CONC 32.6 g/dl (32.0-36.5); MEAN CORPUSCULAR VOLUME 79.2 fl (80.0-96.0); PLATELET COUNT, AUTOMATED 207 10^3/uL (150-450); RED BLOOD COUNT 2.98 10^6/uL (4.30-6.10); WHITE BLOOD COUNT 5.8 10^3/uL (4.0-10.0)
--- NOTE | 2018-12-05 06:09 | IPN ---
DATE OF SERVICE: 12/04/2018 SUBJECTIVE: The patient was seen and examined at the bedside today morning. He is afebrile and hemodynamically stable. His IV fluids were stopped yesterday. He continues to be on oral salt tablets. His sodium level has nicely improved to 134 today. OBJECTIVE: Vital Signs: Temperature is 97.1 degrees Fahrenheit, blood pressure 128/56, pulse is 62, respiratory rate of 22, saturating 98% on room air. Intake and Output: Urine output recorded as 1.1 liters yesterday. His Cardenas catheter has been removed and he is going to have the voiding trial. Weight on the bed scale is 98.5 kg. PHYSICAL EXAMINATION: GENERAL: The patient is awake, alert, oriented times three, hard of hearing, sitting up on the sofa, in no apparent distress. HEAD AND NECK EXAM: Extraocular muscles intact. Pupils equally round and reactive to light. Mucous membranes are moist. Neck is supple. There is no jugular venous distention (JVD). CARDIOVASCULAR: S1, S2, regular rate. No murmur, rub or gallop. RESPIRATORY: Chest is clear to auscultation bilaterally. Bilateral equal air entry. No rales or rhonchi. ABDOMEN: Abdomen is soft. Positive bowel sounds, nontender. No organomegaly. MUSCULOSKELETAL: No clubbing or cyanosis. Pulses are 2+. CENTRAL NERVOUS SYSTEM: He is very hard of hearing. Otherwise no focal deficit at this point. LAB REVIEW: CBC showed a WBC of 6, hemoglobin 8.3, platelets are 201. BMP showed sodium 134, potassium 4, chloride 102, bicarbonate 23, BUN 9, creatinine is 0.89. CURRENT INPATIENT MEDICATIONS: The patient's medications were all reviewed by me. There is no change in the medications today as compared with yesterday. ASSESSMENT AND PLAN: 1. Hyponatremia. Patient has euvolemic hypotonic hyponatremia. He has syndrome of inappropriate antidiuretic hormone secretion (SIADH). He is responding well to the oral salt tablets. Sodium has nicely improved to 134. I have started the patient on a low dose of Lasix 10 mg by mouth twice a day to help with SIADH. 2. Suprasellar arachnoid cyst. The patient was seen by neurology. MRI is not possible in our hospital because of presence of metal in the body. He will need surgical evaluation as outpatient. 3. Metabolic encephalopathy. Patient is clinically much more awake and alert today. Electrolytes are improving.
[2018-12-05 06:23] LABS: BLOOD UREA NITROGEN 11 MG/DL (7-18); CARBON DIOXIDE LEVEL 23 MEQ/L (21-32); CHLORIDE LEVEL 104 MEQ/L (98-107); CREATININE FOR GFR 0.84 MG/DL (0.70-1.30); GLOMERULAR FILTRATION RATE > 60.0 (>35); GLUCOSE, FASTING 82 MG/DL (70-100); MAGNESIUM LEVEL 1.9 MG/DL (1.8-2.4); SODIUM LEVEL 134 MEQ/L (136-145)
[2018-12-05 08:00] VITALS: BP 148/69
[2018-12-05] MEDS: APIXABAN 5 MG TAB (ELIQUIS) PO SCH (09:38)
[2018-12-05] MEDS: THIAMINE 100 MG TAB PO SCH (09:38)
[2018-12-05] MEDS: DOXAZOSIN MESYLATE 1 MG TAB PO SCH (09:38)
[2018-12-05] MEDS: FINASTERIDE 5 MG TAB PO SCH (09:38)
[2018-12-05] MEDS: ATORVASTATIN 20 MG TAB PO SCH (09:38)
[2018-12-05] MEDS: SODIUM CHLORIDE 1 GM TAB PO SCH ×3 (09:38→20:25)
[2018-12-05] MEDS: PANTOPRAZOLE 40MG TAB (PROTONIX) PO SCH ×2 (09:38→20:25)
[2018-12-05] MEDS: ASPIRIN 81 MG ENTERIC TAB PO SCH (09:38)
[2018-12-05] MEDS: FUROSEMIDE 10MG PER 1/2 TABLET PO SCH ×2 (09:38→17:21)
[2018-12-05] MEDS: TIMOLOL MALEATE 0.5% OPHTH SOLN 5 ML OD SCH ×2 (09:39→20:25)
[2018-12-05] MEDS ORDERED: SLF 3 ML SYR IV PRN (11:30)
[2018-12-05 12:00] VITALS: BP 125/60
[2018-12-05] MEDS: SLF 3 ML SYR IV SCH ×2 (14:00→20:26)
[2018-12-05 15:54] LABS: HEMATOCRIT 27.2 % (42.0-52.0); HEMOGLOBIN 8.6 g/dl (13.5-17.5)
--- NOTE | 2018-12-05 15:57 | IPN ---
DATE OF SERVICE: 12/05/2018 SUBJECTIVE: Patient was seen and examined at the bedside today, morning. He was actually sitting in the sofa. He is afebrile, hemodynamically stable. Sodium is stable at 134. He denies any active complaints. OBJECTIVE: VITAL SIGNS: Temperature is 98.3 degrees Fahrenheit, blood pressure 148/69, pulse is 63, respiratory rate of 20, saturating 94% on room air. INTAKE AND OUTPUT: Urine output recorded as 125 mL. He is having incontinent voids as well. Weight on the bed scale is 97.3 kg. PHYSICAL EXAMINATION: GENERAL: Patient is awake, alert, oriented times three, sitting up in the sofa, in no apparent distress. HEAD AND NECK EXAM: Extraocular muscles intact. Pupils equally round and reactive to light. Mucous membranes are moist. Neck is supple. There is no jugular venous distention (JVD). CARDIOVASCULAR: S1, S2, regular rate. No murmur, rub or gallop. RESPIRATORY: Chest is clear to auscultation bilaterally. Bilateral equal air entry. No rales or rhonchi. ABDOMEN: Is soft, positive bowel sounds, nontender. No organomegaly. MUSCULOSKELETAL: No clubbing or cyanosis. Pulses are 2+. CENTRAL NERVOUS SYSTEM (RETURN TO FACTORY CLERK): Patient is very hard of hearing. Otherwise, no focal deficit. LAB REVIEW: CBC showed a WBC of 5.8, hemoglobin 7.7, platelets are 207. BMP showed sodium 134, potassium 4, chloride 104, bicarbonate 23, BUN 11, creatinine 0.8, calcium is 8. CURRENT INPATIENT MEDICATIONS: Patient's medications were all reviewed by me. He continues to be on salt tablet 1 gram by mouth three times a day and Lasix 10 mg by mouth twice a day. He was on Eliquis, which has been stopped now. ASSESSMENT AND PLAN: 1. Hyponatremia. Patient has history of syndrome of inappropriate secretion of antidiuretic hormone (SIADH), which is controlled with Lasix and salt tablets at this point. Continue current regimen. 2. Suprasellar arachnoid cyst. It is most likely causing SIADH. Patient will need to followup with neurosurgery as outpatient after discharge. 3. Anemia. Patient was on Eliquis, which has been stopped. He is going to get packed red blood cells (PRBC) transfusion today. Rest of the workup is as per primary team. DISPOSITION: Patient's sodium is optimized at this point. Continue current dose of Lasix and salt tablets. He will need to followup with nephrology as outpatient after discharge. Nephrology service is going to sign off at this moment.
[2018-12-05 16:00] VITALS: BP 151/68
--- NOTE | 2018-12-05 18:12 | IPNPDOC ---
Text Note Date of Service The patient was seen on 12/05/18. NOTE The patient is seen and examined. No acute events overnight. much more responsive. Denies any chest pain, pressure or discomfort. Denies any fevers or chills. PHYSICAL EXAMINATION: GENERAL: The patient is alert, comfortable, in no acute distress. HEENT: Moist mucous membranes. NECK: Supple. CARDIAC: Regular. S1, S2. PULMONARY: Bilaterally clear. ABDOMEN: Soft, nontender. Positive bowel sounds. EXTREMITIES: No clubbing. No edema in bilateral lower extremities. Right forearm abrasion, no bleeding. Distal pulses intact. NEUROLOGIC: Cranial nerves II-XII grossly intact. Able to move bilateral upper and lower extremities. ASSESSMENT AND PLAN: This is an 88-year-old male patient with underlying medical history of episodic hyponatremia secondary to syndrome of inappropriate antidiuretic hormone secretion (SIADH), coronary artery disease, atrial fibrillation on Eliquis, bilateral carotid artery stenosis, dyslipidemia, hypertension, gastroesophageal reflux disease (GERD), restless legs, who presented with confusion, encephalopathy. 1. 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 Case was discussed with Dr. Rankin of neurology. The patient's sodium has improved, as well as mental status. serial neuro checks. Serial BMP has improved, almost back to baseline. Is on Lasix, sodium chloride tab. Nephrology consulted. Case was also discussed with neurosurgery, Dr. Alamo. Dr. Alamo agreed with outpatient neurosurgery followup given the patient's symptoms have improved. referral made, CT scan findings were discussed. 2. Anemia. Monitor hemoglobin and hematocrit, possibly dilutional. Was transfused. No evidence of bleeding at this time.eliquis temporary on hold. last colonoscopy as per patient 3 years ago, wnl. 3. Hypertension. Currently stable. Continue Lasix. 4. Paroxysmal atrial fibrillation. aspirin. The patient is not on any beta blockers. temporary hold Eliquis given anemia 5. Benign prostatic hypertrophy (BPH). Continue current medications. 6. Dyslipidemia. Continue statin. 7. Metabolic encephalopathy, possibly secondary to hyponatremia. CT scan appreciated. Electroencephalogram (EEG) shows evidence of encephalopathy. Ammonia and B12 within normal limits. Neurology consulted. Physical therapy (PT) and occupational therapy (OT). 8. Hypokalemia. Supplemented. 9. Carotid artery disease. Continue aspirin. Continue statin. 10. Coronary arterial disease, status post PCI. Continue aspirin and statin. Outpatient followup. Eliquise temporary on hold 11. Restless legs. Continue current medications. Outpatient followup. 12. Deep vein thrombosis (DVT) prophylaxis. TEDs. / SCD, hold Eliquis temporarily given anemia DISPOSITION: Pending physical therapy. Needs outpatient neurosurgery referral. VS,Segundobone, I+O VS, Fishbone, I+O Laboratory Tests 12/05/18 05:31 Red Blood Count 2.98 L, Mean Corpuscular Volume 79.2 L, Mean Corpuscular Hemoglobin 25.8 L, Mean Corpuscular Hemoglobin Concent 32.6, Red Cell Distribution Width 15.5 H, Calcium Level 8.0 L 12/05/18 15:42 Vital Signs Date Time Temp Pulse Resp B/P (MAP) Pulse Ox O2 Delivery O2 Flow Rate FiO2 12/05/18 16:00 99.9 60 22 151/68 (95) 96 11/29/18 16:21 Room Air I&O- Last 24 Hours up to 6 AM 12/05/18 06:00 Intake Total 600 ml Output Total 25 ml Balance 575 ml RUTH MERCER MD Dec 05, 2018 18:12
[2018-12-05 20:00] VITALS: BP 161/72
[2018-12-05] MEDS: SENOKOT S TAB PO SCH (20:25)
[2018-12-05] MEDS: LATANOPROST 0.005% OPHTH SOLN 2.5 ML OD SCH (20:25)
[2018-12-06] VITALS (7 sets, daily range): BP systolic 106–160; BP diastolic 58–98
[2018-12-06] MEDS: SLF 3 ML SYR IV SCH ×3 (05:48→20:48)
[2018-12-06 05:58] LABS: HEMATOCRIT 27.4 % (42.0-52.0); HEMOGLOBIN 8.7 g/dl (13.5-17.5); MEAN CORPUSCULAR HEMOGLOBIN 25.1 pg (27.0-33.0); MEAN CORPUSCULAR HGB CONC 31.8 g/dl (32.0-36.5); PLATELET COUNT, AUTOMATED 231 10^3/uL (150-450); RED BLOOD COUNT 3.47 10^6/uL (4.30-6.10); WHITE BLOOD COUNT 5.6 10^3/uL (4.0-10.0)
[2018-12-06 06:21] LABS: BLOOD UREA NITROGEN 10 MG/DL (7-18); CARBON DIOXIDE LEVEL 24 MEQ/L (21-32); CHLORIDE LEVEL 103 MEQ/L (98-107); CREATININE FOR GFR 0.88 MG/DL (0.70-1.30); GLOMERULAR FILTRATION RATE > 60.0 (>35); GLUCOSE, FASTING 84 MG/DL (70-100); MAGNESIUM LEVEL 1.9 MG/DL (1.8-2.4); SODIUM LEVEL 135 MEQ/L (136-145)
[2018-12-06] MEDS: ATORVASTATIN 20 MG TAB PO SCH (09:39)
[2018-12-06] MEDS: FINASTERIDE 5 MG TAB PO SCH (09:39)
[2018-12-06] MEDS: SODIUM CHLORIDE 1 GM TAB PO SCH ×3 (09:39→20:47)
[2018-12-06] MEDS: FUROSEMIDE 10MG PER 1/2 TABLET PO SCH ×2 (09:40→16:17)
[2018-12-06] MEDS: THIAMINE 100 MG TAB PO SCH (09:40)
[2018-12-06] MEDS: SENOKOT S TAB PO SCH ×2 (09:41→20:47)
[2018-12-06] MEDS: TIMOLOL MALEATE 0.5% OPHTH SOLN 5 ML OD SCH ×2 (09:41→20:48)
[2018-12-06] MEDS: PANTOPRAZOLE 40MG TAB (PROTONIX) PO SCH ×2 (09:41→20:48)
[2018-12-06] MEDS: ASPIRIN 81 MG ENTERIC TAB PO SCH (09:41)
[2018-12-06] MEDS: DOXAZOSIN MESYLATE 1 MG TAB PO SCH (09:41)
[2018-12-06] MEDS ORDERED: PILL CRUSHER/CUTTER 1 EACH XX PRN (10:30)
[2018-12-06] MEDS: FAMCICLOVIR 500 MG TAB PO SCH ×2 (12:19→20:47)
--- NOTE | 2018-12-06 15:29 | IPNPDOC ---
Text Note Date of Service The patient was seen on 12/06/18. NOTE The patient is seen and examined. No acute events overnight. Denies any chest pain, pressure or discomfort. Denies any fevers or chills. PHYSICAL EXAMINATION: GENERAL: The patient is alert, comfortable, in no acute distress. HEENT: Moist mucous membranes. NECK: Supple. CARDIAC: Regular. S1, S2. PULMONARY: Bilaterally clear. ABDOMEN: Soft, nontender. Positive bowel sounds. EXTREMITIES: No clubbing. No edema in bilateral lower extremities. Right forearm abrasion, no bleeding. Distal pulses intact. NEUROLOGIC: Cranial nerves II-XII grossly intact. Able to move bilateral upper and lower extremities. ASSESSMENT AND PLAN: This is an 88-year-old male patient with underlying medical history of episodic hyponatremia secondary to syndrome of inappropriate antidiuretic hormone secretion (SIADH), coronary artery disease, atrial fibrillation on Eliquis, bilateral carotid artery stenosis, dyslipidemia, hypertension, gastroesophageal reflux disease (GERD), restless legs, who presented with confusion, encephalopathy. 1. 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 Case was discussed with Dr. Rankin of neurology. The patient's sodium has improved, as well as mental status. serial neuro checks. Serial BMP has improved, almost back to baseline. Lasix, sodium chloride tab. Nephrology consulted. Case was also discussed with neurosurgery, Dr. Alamo. Dr. Alamo agreed with outpatient neurosurgery followup given the patient's symptoms have improved. referral made, CT scan findings were discussed. 2. Anemia. Monitor hemoglobin and hematocrit, possibly dilutional. Was transfused. No evidence of bleeding at this time.eliquis temporary on hold. f/u FOBT 3. Hypertension. Currently stable. Continue Lasix. 4. Paroxysmal atrial fibrillation. aspirin. The patient is not on any beta blockers. temporary hold Eliquis given anemia 5. Benign prostatic hypertrophy (BPH). Continue current medications. 6. Dyslipidemia. Continue statin. 7. Metabolic encephalopathy, possibly secondary to hyponatremia. CT scan appreciated. Electroencephalogram (EEG) shows evidence of encephalopathy. Ammonia and B12 within normal limits. Neurology consulted. Physical therapy (PT) and occupational therapy (OT). 8. Hypokalemia. Supplemented. 9. Carotid artery disease. Continue aspirin. Continue statin. 10. Coronary arterial disease, status post PCI. Continue aspirin and statin. Outpatient followup. Eliquise temporary on hold 11. Restless legs. Continue current medications. Outpatient followup. 12. Deep vein thrombosis (DVT) prophylaxis. TEDs. / SCD, hold Eliquis temporarily given anemia DISPOSITION: Pending physical therapy. Needs outpatient neurosurgery referral. possible STR VS,Fishbone, I+O VS, Fishbone, I+O Laboratory Tests 12/05/18 15:42 12/06/18 05:25 Red Blood Count 3.47 L, Mean Corpuscular Volume 79.0 L, Mean Corpuscular H emoglobin 25.1 L, Mean Corpuscular Hemoglobin Concent 31.8 L, Red Cell Distribution Width 15.3 H, Calcium Level 8.0 L Vital Signs Date Time Temp Pulse Resp B/P (MAP) Pulse Ox O2 Delivery O2 Flow Rate FiO2 12/06/18 12:00 97.6 63 18 106/64 (78 96 I&O- Last 24 Hours up to 6 AM 12/06/18 06:00 Intake Total 1369 ml Output Total 915 ml Balance 454 ml RUTH MERCER MD Dec 06, 2018 15:29
[2018-12-06] MEDS: LATANOPROST 0.005% OPHTH SOLN 2.5 ML OD SCH (20:48)
[2018-12-07 04:00] VITALS: BP 156/72
[2018-12-07] MEDS: SLF 3 ML SYR IV SCH ×3 (05:20→20:23)
[2018-12-07 05:27] LABS: HEMATOCRIT 25.8 % (42.0-52.0); HEMOGLOBIN 8.1 g/dl (13.5-17.5); MEAN CORPUSCULAR HEMOGLOBIN 25.2 pg (27.0-33.0); MEAN CORPUSCULAR HGB CONC 31.4 g/dl (32.0-36.5); MEAN CORPUSCULAR VOLUME 80.1 fl (80.0-96.0); PLATELET COUNT, AUTOMATED 225 10^3/uL (150-450); RED BLOOD COUNT 3.22 10^6/uL (4.30-6.10); WHITE BLOOD COUNT 5.2 10^3/uL (4.0-10.0)
[2018-12-07 05:49] LABS: BLOOD UREA NITROGEN 12 MG/DL (7-18); CALCIUM LEVEL 7.7 MG/DL (8.8-10.2); CARBON DIOXIDE LEVEL 22 MEQ/L (21-32); CHLORIDE LEVEL 107 MEQ/L (98-107); CREATININE FOR GFR 0.78 MG/DL (0.70-1.30); GLOMERULAR FILTRATION RATE > 60.0 (>35); GLUCOSE, FASTING 89 MG/DL (70-100); MAGNESIUM LEVEL 1.8 MG/DL (1.8-2.4); POTASSIUM SERUM 3.7 MEQ/L (3.5-5.1); SODIUM LEVEL 137 MEQ/L (136-145)
[2018-12-07 08:00] VITALS: BP 139/59
[2018-12-07] MEDS: DOXAZOSIN MESYLATE 1 MG TAB PO SCH (09:19)
[2018-12-07] MEDS: SODIUM CHLORIDE 1 GM TAB PO SCH ×3 (09:19→20:23)
[2018-12-07] MEDS: FINASTERIDE 5 MG TAB PO SCH (09:19)
[2018-12-07] MEDS: PANTOPRAZOLE 40MG TAB (PROTONIX) PO SCH ×2 (09:20→20:23)
[2018-12-07] MEDS: ATORVASTATIN 20 MG TAB PO SCH (09:20)
[2018-12-07] MEDS: THIAMINE 100 MG TAB PO SCH (09:20)
[2018-12-07] MEDS: FUROSEMIDE 10MG PER 1/2 TABLET PO SCH ×2 (09:20→17:12)
[2018-12-07] MEDS: ASPIRIN 81 MG ENTERIC TAB PO SCH (09:20)
[2018-12-07] MEDS: SENOKOT S TAB PO SCH ×2 (09:20→20:23)
[2018-12-07] MEDS: TIMOLOL MALEATE 0.5% OPHTH SOLN 5 ML OD SCH ×2 (09:21→20:23)
[2018-12-07 12:00] VITALS: BP 160/73
[2018-12-07 16:00] VITALS: BP 164/72
--- NOTE | 2018-12-07 19:14 | IPNPDOC ---
Text Note Date of Service The patient was seen on 12/07/18. NOTE The patient is seen and examined. No acute events overnight. Denies any chest pain, pressure or discomfort. Denies any fevers or chills.no BM PHYSICAL EXAMINATION: GENERAL: The patient is alert, comfortable, in no acute distress. HEENT: Moist mucous membranes. NECK: Supple. CARDIAC: Regular. S1, S2. PULMONARY: Bilaterally clear. ABDOMEN: Soft, nontender. Positive bowel sounds. FOBT + brown stool EXTREMITIES: No clubbing. No edema in bilateral lower extremities. Right forearm abrasion, no bleeding. Distal pulses intact. NEUROLOGIC: Cranial nerves II-XII grossly intact. Able to move bilateral upper and lower extremities. ASSESSMENT AND PLAN: This is an 88-year-old male patient with underlying medical history of episodic hyponatremia secondary to syndrome of inappropriate antidiuretic hormone secretion (SIADH), coronary artery disease, atrial fibrillation on Eliquis, bilateral carotid artery stenosis, dyslipidemia, hypertension, gastroesophageal reflux disease (GERD), restless legs, who presented with confusion, encephalopathy. 1. 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 Case was discussed with Dr. Rankin of neurology. The patient's sodium has improved, as well as mental status. serial neuro checks. Serial BMP has improved, almost back to baseline. Lasix, sodium chloride tab. Nephrology consulted. Case was also discussed with neurosurgery, Dr. Alamo. Dr. Alamo agreed with outpatient neurosurgery followup given the patient's symptoms have improved. referral made, CT scan findings were discussed. 2. Anemia. FOBT +, GI bleed, Monitor hemoglobin and hematocrit, Was transfused. GI consult. ppI BID. hold elquis, d/c Dr Bose, plan for EGD, colonoscopy Monday 3. Hypertension. Currently stable. Continue Lasix. 4. Paroxysmal atrial fibrillation. aspirin. The patient is not on any beta blockers. temporary hold Eliquis given anemia 5. Benign prostatic hypertrophy (BPH). Continue current medications. 6. Dyslipidemia. Continue statin. 7. Metabolic encephalopathy, possibly secondary to hyponatremia. CT scan appreciated. Electroencephalogram (EEG) shows evidence of encephalopathy. Ammonia and B12 within normal limits. Neurology consulted. Physical therapy (PT) and occupational therapy (OT). 8. Hypokalemia. Supplemented. 9. Carotid artery disease. Continue aspirin. Continue statin. 10. Coronary arterial disease, status post PCI. Continue aspirin and statin. Outpatient followup. Eliquis temporary on hold. d/w Dr Bose 11. Restless legs. Continue current medications. Outpatient followup. 12. Deep vein thrombosis (DVT) prophylaxis. TEDs. / SCD, hold Eliquis temporarily given anemia DISPOSITION: Pending physical therapy. Needs outpatient neurosurgery referral. GI workup for GI bleed. possible STR VS,Fishbone, I+O VS, Fishbone, I+O Laboratory Tests 12/07/18 04:49 Red Blood Count 3.22 L, Mean Corpuscular Volume 80.1, Mean Corpuscular Hemoglobin 25.2 L, Mean Corpuscular Hemoglobin Concent 31.4 L, Red Cell Distribution Width 15.3 H, Calcium Level 7.7 L Vital Signs Date Time Temp Pulse Resp B/P (MAP) Pulse Ox O2 Delivery O2 Flow Rate FiO2 12/07/18 16:00 98.6 64 20 164/72 (102) 97 I&O- Last 24 Hours up to 6 AM 12/07/18 06:00 Intake Total 842 ml Output Total 650 ml Balance 192 ml RUTH MERCER MD Dec 07, 2018 19:14
[2018-12-07 20:00] VITALS: BP 161/72
[2018-12-07] MEDS: LATANOPROST 0.005% OPHTH SOLN 2.5 ML OD SCH (20:23)
[2018-12-08] VITALS (7 sets, daily range): BP systolic 134–162; BP diastolic 63–70
[2018-12-08] MEDS: SLF 3 ML SYR IV SCH ×3 (05:27→19:50)
[2018-12-08 05:52] LABS: HEMATOCRIT 27.3 % (42.0-52.0); HEMOGLOBIN 8.6 g/dl (13.5-17.5); MEAN CORPUSCULAR HEMOGLOBIN 25.1 pg (27.0-33.0); MEAN CORPUSCULAR HGB CONC 31.5 g/dl (32.0-36.5); MEAN CORPUSCULAR VOLUME 79.8 fl (80.0-96.0); PLATELET COUNT, AUTOMATED 240 10^3/uL (150-450); RED BLOOD COUNT 3.42 10^6/uL (4.30-6.10)
[2018-12-08 06:17] LABS: BLOOD UREA NITROGEN 12 MG/DL (7-18); CALCIUM LEVEL 7.7 MG/DL (8.8-10.2); CARBON DIOXIDE LEVEL 25 MEQ/L (21-32); CHLORIDE LEVEL 106 MEQ/L (98-107); CREATININE FOR GFR 0.84 MG/DL (0.70-1.30); GLOMERULAR FILTRATION RATE > 60.0 (>35); GLUCOSE, FASTING 78 MG/DL (70-100); POTASSIUM SERUM 4.3 MEQ/L (3.5-5.1); SODIUM LEVEL 138 MEQ/L (136-145)
[2018-12-08] MEDS: FINASTERIDE 5 MG TAB PO SCH (09:02)
[2018-12-08] MEDS: FUROSEMIDE 10MG PER 1/2 TABLET PO SCH ×2 (09:02→16:34)
[2018-12-08] MEDS: DOXAZOSIN MESYLATE 1 MG TAB PO SCH (09:03)
[2018-12-08] MEDS: SENOKOT S TAB PO SCH ×2 (09:03→19:49)
[2018-12-08] MEDS: ATORVASTATIN 20 MG TAB PO SCH (09:03)
[2018-12-08] MEDS: THIAMINE 100 MG TAB PO SCH (09:03)
[2018-12-08] MEDS: SODIUM CHLORIDE 1 GM TAB PO SCH ×3 (09:03→19:49)
[2018-12-08] MEDS: PANTOPRAZOLE 40MG TAB (PROTONIX) PO SCH ×2 (09:03→19:49)
[2018-12-08] MEDS: ASPIRIN 81 MG ENTERIC TAB PO SCH (09:03)
[2018-12-08] MEDS: TIMOLOL MALEATE 0.5% OPHTH SOLN 5 ML OD SCH ×2 (09:06→19:49)
--- NOTE | 2018-12-08 19:28 | IPNPDOC ---
Text Note Date of Service The patient was seen on 12/08/18. NOTE The patient is seen and examined. No acute events overnight. Denies any chest pain, pressure or discomfort. Denies any fevers or chills. PHYSICAL EXAMINATION: GENERAL: The patient is alert, comfortable, in no acute distress. HEENT: Moist mucous membranes. NECK: Supple. CARDIAC: Regular. S1, S2. PULMONARY: Bilaterally clear. ABDOMEN: Soft, nontender. Positive bowel sounds. EXTREMITIES: No clubbing. No edema in bilateral lower extremities. Right forearm abrasion, no bleeding. Distal pulses intact. NEUROLOGIC: Cranial nerves II-XII grossly intact. Able to move bilateral upper and lower extremities. ASSESSMENT AND PLAN: This is an 88-year-old male patient with underlying medical history of episodic hyponatremia secondary to syndrome of inappropriate antidiuretic hormone secretion (SIADH), coronary artery disease, atrial fibrillation on Eliquis, bilateral carotid artery stenosis, dyslipidemia, hypertension, gastroesophageal reflux disease (GERD), restless legs, who presented with confusion, encephalopathy. 1. 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 Case was discussed with Dr. Rankin of neurology. The patient's sodium has improved, as well as mental status. serial neuro checks. Serial BMP has improved, almost back to baseline. Lasix, sodium chloride tab. Nephrology consulted. Case was also discussed with neurosurgery, Dr. Alamo. Dr. Alamo agreed with outpatient neurosurgery followup given the patient's symptoms have improved. referral made, CT scan findings were discussed. 2. suprasellar arachnoid cyst Case discussed with neurosurgery, Dr. Alamo. Dr. Alamo agreed with outpatient neurosurgery followup given the patient's symptoms have improved. referral made 2. Anemia. FOBT +, GI bleed, Monitor hemoglobin and hematocrit, Was transfused. GI consult. ppI BID. hold elquis, d/c Dr Bose, plan for EGD, colonoscopy Monday 3. Hypertension. Currently stable. Continue Lasix. 4. Paroxysmal atrial fibrillation. aspirin. The patient is not on any beta blockers. temporary hold Eliquis given anemia 5. Benign prostatic hypertrophy (BPH). Continue current medications. 6. Dyslipidemia. Continue statin. 7. Metabolic encephalopathy, possibly secondary to hyponatremia. CT scan appreciated. Electroencephalogram (EEG) shows evidence of encephalopathy. Ammonia and B12 within normal limits. Neurology consulted. Physical therapy (PT) and occupational therapy (OT). 8. Hypokalemia. Supplemented. 9. Carotid artery disease. Continue aspirin. Continue statin. 10. Coronary arterial disease, status post PCI. Continue aspirin and statin. Outpatient followup. Eliquis temporary on hold. d/w Dr Bose 11. Restless legs. Continue current medications. Outpatient followup. 12. Deep vein thrombosis (DVT) prophylaxis. TEDs. / SCD, hold Eliquis t emporarily given anemia DISPOSITION: Pending physical therapy. Needs outpatient neurosurgery referral. GI workup for GI bleed. possible STR VS,Fishbone, I+O VS, Fishbone, I+O Laboratory Tests 12/08/18 05:22 Red Blood Count 3.42 L, Mean Corpuscular Volume 79.8 L, Mean Corpuscular Hemoglobin 25.1 L, Mean Corpuscular Hemoglobin Concent 31.5 L, Red Cell Distribution Width 15.2 H, Calcium Level 7.7 L Vital Signs Date Time Temp Pulse Resp B/P (MAP) Pulse Ox O2 Delivery O2 Flow Rate FiO2 12/08/18 16:00 98.1 59 18 141/64 (89) 95 12/08/18 08:06 0.0 I&O- Last 24 Hours up to 6 AM 12/08/18 06:00 Intake Total 660 ml Output Total 1125 ml Balance -465 ml RUTH MERCER MD Dec 08, 2018 19:28
[2018-12-08] MEDS: LATANOPROST 0.005% OPHTH SOLN 2.5 ML OD SCH (19:50)
[2018-12-09 04:00] VITALS: BP 154/71
[2018-12-09] MEDS: SLF 3 ML SYR IV SCH ×3 (05:23→21:15)
[2018-12-09 05:49] LABS: HEMOGLOBIN 8.5 g/dl (13.5-17.5); MEAN CORPUSCULAR HEMOGLOBIN 25.2 pg (27.0-33.0); MEAN CORPUSCULAR HGB CONC 31.5 g/dl (32.0-36.5); MEAN CORPUSCULAR VOLUME 80.1 fl (80.0-96.0); PLATELET COUNT, AUTOMATED 249 10^3/uL (150-450); RED BLOOD COUNT 3.37 10^6/uL (4.30-6.10); WHITE BLOOD COUNT 5.2 10^3/uL (4.0-10.0)
[2018-12-09 06:13] LABS: BLOOD UREA NITROGEN 17 MG/DL (7-18); CALCIUM LEVEL 7.9 MG/DL (8.8-10.2); CARBON DIOXIDE LEVEL 26 MEQ/L (21-32); CHLORIDE LEVEL 106 MEQ/L (98-107); CREATININE FOR GFR 0.97 MG/DL (0.70-1.30); GLOMERULAR FILTRATION RATE > 60.0 (>35); GLUCOSE, FASTING 83 MG/DL (70-100); MAGNESIUM LEVEL 1.9 MG/DL (1.8-2.4); POTASSIUM SERUM 4.2 MEQ/L (3.5-5.1); SODIUM LEVEL 139 MEQ/L (136-145)
[2018-12-09 08:00] VITALS: BP 158/70
[2018-12-09] MEDS: PANTOPRAZOLE 40MG TAB (PROTONIX) PO SCH ×2 (09:25→21:14)
[2018-12-09] MEDS: THIAMINE 100 MG TAB PO SCH (09:25)
[2018-12-09] MEDS: FUROSEMIDE 10MG PER 1/2 TABLET PO SCH ×2 (09:26→17:22)
[2018-12-09] MEDS: SENOKOT S TAB PO SCH ×2 (09:26→21:14)
[2018-12-09] MEDS: SODIUM CHLORIDE 1 GM TAB PO SCH ×3 (09:26→21:14)
[2018-12-09] MEDS: ASPIRIN 81 MG ENTERIC TAB PO SCH (09:26)
[2018-12-09] MEDS: ATORVASTATIN 20 MG TAB PO SCH (09:26)
[2018-12-09] MEDS: FINASTERIDE 5 MG TAB PO SCH (09:26)
[2018-12-09] MEDS: DOXAZOSIN MESYLATE 1 MG TAB PO SCH (09:26)
[2018-12-09] MEDS: TIMOLOL MALEATE 0.5% OPHTH SOLN 5 ML OD SCH ×2 (09:27→21:00)
[2018-12-09 12:00] VITALS: BP 122/64
[2018-12-09] MEDS ORDERED: GOLYTELY SOLN 4000 ML BTL PO ONE (14:00)
--- NOTE | 2018-12-09 15:32 | CR.PDOC ---
General Date of Consultation: Dec 09, 2018 Referring Provider: RUTH MERCER MD Attending Physician: ADONAY MCCONNELL MD Consultation Primary physician/ hospitalist: Dr. Gill / Dr. Mercer, Reason for consult: Drop in hemoglobin with occult blood positive. HPI: 88-year-old male patient with HTN, HLD, SIADH (with episodes of hyponatremia, following with neurology), CAD (Prior h/o PCI), Atrial fibrillation ( on Eliquis), carotid artery stenosis was admitted to hospital for altered mental status and severe hyponatremia likely secondary to SIADH. Patient was evaluated by neurology and nephrology and treated to correct hyponatremia and currently patient mental status has returned to baseline. Patient was noted with drop in hemoglobin levels during hospitalization for which he required 2 unit PRBC t ransfusion, and noted with occult blood positive. GI was consulted for the same. Patient denies any active GI bleeding symptoms but does report slight decrease in appetite and subjective weight loss over the past few months. Patient also reports having chronic constipation for which she was given laxatives but he does not take them regularly. Pertinent negative GI symptoms: Patient denies nausea, vomiting, diarrhea, abdominal pain. No history of hematemesis, melena or hematochezia. Review of Systems: GI: as stated above CVS: No chest pain, No palpitations, No leg swelling. 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 Skin: No rash : No hematuria, No burning sensation of the urine ENT: No ear discharge/ pain, No dysphagia. Eyes: No photophobia. Home medications: reviewed. Antithrombotic agents - On Eliquis ( last dose on 12/05/2018) Medical h/o: As above. Surgical h/o: None on abdomen. Social h/o: Alcohol- Denies, tobacco- Denies, IVDA/ drugs- Denies. Family h/o of GI cancers - None Prior Endoscopies: --- EGD - None in [facility] --- Colonoscopy -in 2013, done by Dr. Yee, for change in bowel habits and constipation - noted large sigmoid colon polyp completely removed. Pathology fragments of tubulovillous adenoma. Prior GI evaluation: Previously seen by Dr. Joselito. Exam: Vitals: reviewed General: Alert and oriented x 3, not in distress HEENT: NO pallor, no icterus. Normal oropharynx, NO cervical lymph nodes. Chest: symmetric with bilateral clear air entry, CVS: S1, S2 heard, normal, no murmurs . Abdomen: non-distended, no surgical scars, soft, non-tender, no palpable masses, normal bowel sounds heard. Rectal exam: Patient refused / Deferred at this time in view of scheduled colonoscopy. Extremities: no pedal edema, pulses palpable. 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 Moves all extremities Skin: no rash. Labs: reviewed. Impression: -- Gradual drop in hemoglobin levels with occult blood positive -- DDx -- rule out Gi blood loss from Colon polyps vs AVMs vs PUD. -- SIADH with severe hyponatremia and encephalopathy -- resolved with normal Sodium levels now. ( Following with neurology and Neurosurgery). Recommendations: - Patient educated about the test results, possible differential diagnoses and All questions answered. - Clear liquid diet for now. - Patient is [facility] for [facility] - discussed the risks, benefits and alternatives. Patient verbalized understanding. - Will schedule for EGD and Colonoscopy tomorrow. - The procedures, indications, risks (bleeding, perforation, infection, hypotension, respiratory depression, allergy, need for endotracheal intubation, surgery, colostomy, cardiac arrest, even ), benefits, limitations (e.g., missing a lesion), and all other alternatives (including no intervention) were explained to the patient who understood and agreed for the procedures. Patient also specifically educated about the elevated anesthesia risks due to his age and medical status and he verbalized understanding. - Golytely 4 liters -- starting now and complete by 9 AM tomorrow. - Dulcolax 20 mg oral at 8 PM today. - NPO for 4 hours prior to procedure Plan of care discussed with patient and primary team. Patient verbalized understanding and agreed with the plan. Vital Signs/I&O Vital Signs Date Time Temp Pulse Resp B/P (MAP) Pulse Ox O2 Delivery O2 Flow Rate FiO2 12/09/18 12:00 97.1 52 22 122/64 (83) 98 12/08/18 08:06 0.0 I&O- Last 24 Hours up to 6 AM 12/09/18 06:00 Intake Total 860 ml Output Total 900 ml Balance -40 ml Laboratory Data CBC/BMP Laboratory Tests 12/09/18 05:36 Allergies Coded Allergies: Sulfa Antibiotics (Verified Allergy, Unknown, 11/29/18) Escitalopram (Verified Adverse Reaction, Unknown, 11/29/18) hallucinations Home Medications Scheduled (Preservision Areds 2) 1 Cap Cap, 1 TAB PO BID, (Reported) Amlodipine Besylate (Amlodipine Besylate) 5 Mg Tab, 5 MG PO DAILY, (Reported) Apixaban Base (Eliquis) 5 Mg Tab, 5 MG PO BID, (Reported) Aspirin (Aspirin EC) 81 Mg Tabec, 81 MG PO DAILY, (Reported) Atorvastatin Calcium (Atorvastatin Calcium) 20 Mg Tab, 20 MG PO DAILY, (Reported) Doxazosin Mesylate (Doxazosin) 2 Mg Tab, 2 MG PO DAILY, (Reported) Escitalopram Oxalate (Escitalopram Oxalate) 10 Mg Tab, 10 MG PO DAILY, (Reported) Finasteride (Finasteride) 5 Mg Tab, 5 MG PO DAILY, (Reported) Pantoprazole Sodium (Pantoprazole Sodium) 40 Mg Tab, 40 MG PO BID, (Reported) Timolol Maleate (Timolol Maleate) 0.5 % Alix, 1 DROP OD BID, (Reported) Travoprost (Travatan Z) 50 Drop/2.5 Ml Soln, 1 DROP OD QHS, (Reported) ADONAY MCCONNELL MD Dec 09, 2018 15:32
--- NOTE | 2018-12-09 15:41 | IPNPDOC ---
Text Note Date of Service The patient was seen on 12/09/18. NOTE The patient is seen and examined. No acute events overnight. Denies any chest pain, pressure or discomfort. Denies any fevers or chills. PHYSICAL EXAMINATION: GENERAL: The patient is alert, comfortable, in no acute distress. HEENT: Moist mucous membranes. NECK: Supple. CARDIAC: Regular. S1, S2. PULMONARY: Bilaterally clear. ABDOMEN: Soft, nontender. Positive bowel sounds. EXTREMITIES: No clubbing. No edema in bilateral lower extremities. Right forearm abrasion, no bleeding. Distal pulses intact. NEUROLOGIC: Cranial nerves II-XII grossly intact. Able to move bilateral upper and lower extremities. ASSESSMENT AND PLAN: This is an 88-year-old male patient with underlying medical history of episodic hyponatremia secondary to syndrome of inappropriate antidiuretic hormone secretion (SIADH), coronary artery disease, atrial fibrillation on Eliquis, bilateral carotid artery stenosis, dyslipidemia, hypertension, gastroesophageal reflux disease (GERD), restless legs, who presented with confusion, encephalopathy. 1. 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 Case was discussed with Dr. Rankin of neurology. The patient's sodium has improved, as well as mental status. serial neuro checks. Serial BMP has improved, almost back to baseline. Lasix, sodium chloride tab. Nephrology consulted. Case was also discussed with neurosurgery, Dr. Alamo. Dr. Alamo agreed with outpatient neurosurgery followup given the patient's symptoms have improved. referral made, CT scan findings were discussed. 2. suprasellar arachnoid cyst Case discussed with neurosurgery, Dr. Alamo. Dr. Alamo agreed with outpatient neurosurgery followup given the patient's symptoms have improved. referral made 3. Anemia. FOBT +, GI bleed, Monitor hemoglobin and hematocrit, Was transfused. GI consult. ppI BID. hold elquis, d/c Dr Bose, plan for EGD, colonoscopy Monday 4. Hypertension. Currently stable. Continue Lasix. 5. Paroxysmal atrial fibrillation. aspirin. The patient is not on any beta blockers. temporary hold Eliquis given anemia 6. Benign prostatic hypertrophy (BPH). Continue current medications. 7. Dyslipidemia. Continue statin. 8. Metabolic encephalopathy, possibly secondary to hyponatremia. CT scan appreciated. Electroencephalogram (EEG) shows evidence of encephalopathy. Ammonia and B12 within normal limits. Neurology consulted. Physical therapy (PT) and occupational therapy (OT). 9. Hypokalemia. Supplemented. 10. Carotid artery disease. Continue aspirin. Continue statin. 11. Coronary arterial disease, status post PCI. Continue aspirin and statin. Outpatient followup. Eliquis temporary on hold. d/w Dr Bose 12. Restless legs. Continue current medications. Outpatient followup. 13. Deep vein thrombosis (DVT) prophylaxis. TEDs. / SCD, hold Eliquis temporarily given anemia DISPOSITION: Pending physical therapy. Needs outpatient neurosurgery referral. GI workup for GI bleed. possible STR VS,Fishbone, I+O VS, Fishbone, I+O Laboratory Tests 12/09/18 05:36 Red Blood Count 3.37 L, Mean Corpuscular Volume 80.1, Mean Corpuscular Hemoglobin 25.2 L, Mean Corpuscular Hemoglobin Concent 31.5 L, Red Cell Distribution Width 15.0 H, Calcium Level 7.9 L Vital Signs Date Time Temp Pulse Resp B/P (MAP) Pulse Ox O2 Delivery O2 Flow Rate FiO2 12/09/18 12:00 97.1 52 22 122/64 (83) 98 12/08/18 08:06 0.0 I&O- Last 24 Hours up to 6 AM 12/09/18 06:00 Intake Total 860 ml Output Total 900 ml Balance -40 ml RUTH MERCER MD Dec 09, 2018 15:41
[2018-12-09 16:00] VITALS: BP 164/70
[2018-12-09 20:00] VITALS: BP 138/64
[2018-12-09] MEDS ORDERED: BISACODYL 5 MG TAB PO ONE (20:00)
[2018-12-09] MEDS: LATANOPROST 0.005% OPHTH SOLN 2.5 ML OD SCH (21:00)
[2018-12-10] VITALS (7 sets, daily range): BP systolic 120–174; BP diastolic 60–82
[2018-12-10] MEDS: SLF 3 ML SYR IV SCH ×3 (05:13→20:36)
[2018-12-10 05:17] LABS: HEMATOCRIT 28.9 % (42.0-52.0); MEAN CORPUSCULAR HEMOGLOBIN 25.1 pg (27.0-33.0); MEAN CORPUSCULAR HGB CONC 31.1 g/dl (32.0-36.5); MEAN CORPUSCULAR VOLUME 80.7 fl (80.0-96.0); PLATELET COUNT, AUTOMATED 265 10^3/uL (150-450); RED BLOOD COUNT 3.58 10^6/uL (4.30-6.10); WHITE BLOOD COUNT 4.6 10^3/uL (4.0-10.0)
[2018-12-10 05:48] LABS: BLOOD UREA NITROGEN 17 MG/DL (7-18); CALCIUM LEVEL 8.3 MG/DL (8.8-10.2); CARBON DIOXIDE LEVEL 25 MEQ/L (21-32); CHLORIDE LEVEL 105 MEQ/L (98-107); CREATININE FOR GFR 1.02 MG/DL (0.70-1.30); GLOMERULAR FILTRATION RATE > 60.0 (>35); GLUCOSE, FASTING 86 MG/DL (70-100); MAGNESIUM LEVEL 2.1 MG/DL (1.8-2.4); POTASSIUM SERUM 4.1 MEQ/L (3.5-5.1); SODIUM LEVEL 138 MEQ/L (136-145)
[2018-12-10] MEDS: FUROSEMIDE 10MG PER 1/2 TABLET PO SCH ×2 (09:00→18:13)
[2018-12-10] MEDS: SENOKOT S TAB PO SCH ×2 (09:00→20:35)
[2018-12-10] MEDS: PANTOPRAZOLE 40MG TAB (PROTONIX) PO SCH ×2 (10:45→20:35)
[2018-12-10] MEDS: THIAMINE 100 MG TAB PO SCH (10:45)
[2018-12-10] MEDS: FINASTERIDE 5 MG TAB PO SCH (10:45)
[2018-12-10] MEDS: ATORVASTATIN 20 MG TAB PO SCH (10:45)
[2018-12-10] MEDS: SODIUM CHLORIDE 1 GM TAB PO SCH ×3 (10:45→20:35)
[2018-12-10] MEDS: ASPIRIN 81 MG ENTERIC TAB PO SCH (10:46)
[2018-12-10] MEDS: DOXAZOSIN MESYLATE 1 MG TAB PO SCH (10:47)
[2018-12-10] MEDS: TIMOLOL MALEATE 0.5% OPHTH SOLN 5 ML OD SCH ×2 (10:48→20:38)
[2018-12-10] MEDS: ACYCLOVIR 5% OINT 15GM TOP SCH ×3 (14:05→20:35)
[2018-12-10] MEDS ORDERED: GOLYTELY SOLN 4000 ML BTL PO ONE (14:30)
--- NOTE | 2018-12-10 17:22 | IPNPDOC ---
Text Note Date of Service The patient was seen on 12/10/18. NOTE The patient is seen and examined. No acute events overnight. Denies any chest pain, pressure or discomfort. Denies any fevers or chills. PHYSICAL EXAMINATION: GENERAL: The patient is alert, comfortable, in no acute distress. HEENT: Moist mucous membranes. NECK: Supple. CARDIAC: Regular. S1, S2. PULMONARY: Bilaterally clear. ABDOMEN: Soft, nontender. Positive bowel sounds. EXTREMITIES: No clubbing. No edema in bilateral lower extremities. Right forearm abrasion, no bleeding. Distal pulses intact. NEUROLOGIC: Cranial nerves II-XII grossly intact. Able to move bilateral upper and lower extremities. ASSESSMENT AND PLAN: This is an 88-year-old male patient with underlying medical history of episodic hyponatremia secondary to syndrome of inappropriate antidiuretic hormone secretion (SIADH), coronary artery disease, atrial fibrillation on Eliquis, bilateral carotid artery stenosis, dyslipidemia, hypertension, gastroesophageal reflux disease (GERD), restless legs, who presented with confusion, encephalopathy. 1. 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 Case was discussed with Dr. Rankin of neurology. The patient's sodium has improved, as well as mental status. serial neuro checks. Serial BMP has improved, almost back to baseline. Lasix, sodium chloride tab. Nephrology consulted. Case was also discussed with neurosurgery, Dr. Alamo. Dr. Alamo agreed with outpatient neurosurgery followup given the patient's symptoms have improved. referral made, CT scan findings were discussed. 2. suprasellar arachnoid cyst Case discussed with neurosurgery, Dr. Alamo. Dr. Alamo agreed with outpatient neurosurgery followup given the patient's symptoms have improved. referral made 3. Anemia. FOBT +, GI bleed, Monitor hemoglobin and hematocrit, Was transfused. GI consult. ppI BID. hold elquis, d/c Dr Bose, plan for EGD, colonoscopy today 4. Hypertension. Currently stable. Continue Lasix. 5. Paroxysmal atrial fibrillation. aspirin. The patient is not on any beta blockers. temporary hold Eliquis given anemia 6. Benign prostatic hypertrophy (BPH). Continue current medications. 7. Dyslipidemia. Continue statin. 8. Metabolic encephalopathy, possibly secondary to hyponatremia. CT scan appreciated. Electroencephalogram (EEG) shows evidence of encephalopathy. Ammonia and B12 within normal limits. Neurology consulted. Physical therapy (PT) and occupational therapy (OT). 9. Hypokalemia. Supplemented. 10. Carotid artery disease. Continue aspirin. Continue statin. 11. Coronary arterial disease, status post PCI. Continue aspirin and statin. Outpatient followup. Eliquis temporary on hold. d/w Dr Bose 12. Restless legs. Continue current medications. Outpatient followup. 13. Deep vein thrombosis (DVT) prophylaxis. TEDs. / SCD, hold Eliquis t emporarily given anemia DISPOSITION: Pending physical therapy. Needs outpatient neurosurgery referral. GI workup for GI bleed. possible STR VS,Fishbone, I+O VS, Fishbone, I+O Laboratory Tests 12/10/18 05:06 Red Blood Count 3.58 L, Mean Corpuscular Volume 80.7, Mean Corpuscular Hemoglobin 25.1 L, Mean Corpuscular Hemoglobin Concent 31.1 L, Red Cell Distribution Width 14.9 H, Calcium Level 8.3 L Vital Signs Date Time Temp Pulse Resp B/P (MAP) Pulse Ox O2 Delivery O2 Flow Rate FiO2 12/10/18 12:00 97.4 55 18 120/60 (80) 98 12/08/18 08:06 0.0 I&O- Last 24 Hours up to 6 AM 12/10/18 05:59 Intake Total 480 ml Output Total 760 ml Balance -280 ml RUTH MERCER MD Dec 10, 2018 17:22
[2018-12-10] MEDS: LATANOPROST 0.005% OPHTH SOLN 2.5 ML OD SCH (20:35)
[2018-12-11] VITALS (8 sets, daily range): BP systolic 70–182; BP diastolic 36–80
[2018-12-11 04:57] LABS: HEMATOCRIT 28.7 % (42.0-52.0); HEMOGLOBIN 8.9 g/dl (13.5-17.5); MEAN CORPUSCULAR VOLUME 80.6 fl (80.0-96.0); PLATELET COUNT, AUTOMATED 269 10^3/uL (150-450); RED BLOOD COUNT 3.56 10^6/uL (4.30-6.10); WHITE BLOOD COUNT 4.3 10^3/uL (4.0-10.0)
[2018-12-11 05:14] LABS: BLOOD UREA NITROGEN 14 MG/DL (7-18); CARBON DIOXIDE LEVEL 27 MEQ/L (21-32); CHLORIDE LEVEL 107 MEQ/L (98-107); GLOMERULAR FILTRATION RATE > 60.0 (>35); GLUCOSE, FASTING 73 MG/DL (70-100); MAGNESIUM LEVEL 2.1 MG/DL (1.8-2.4); SODIUM LEVEL 140 MEQ/L (136-145)
[2018-12-11] MEDS: SLF 3 ML SYR IV SCH ×3 (06:00→20:34)
[2018-12-11] MEDS: ACYCLOVIR 5% OINT 15GM TOP SCH ×5 (06:00→20:27)
[2018-12-11] MEDS: ASPIRIN 81 MG ENTERIC TAB PO SCH (08:49)
[2018-12-11] MEDS: SENOKOT S TAB PO SCH ×2 (08:49→20:26)
[2018-12-11] MEDS: FUROSEMIDE 10MG PER 1/2 TABLET PO SCH (08:49)
[2018-12-11] MEDS: SODIUM CHLORIDE 1 GM TAB PO SCH ×3 (08:49→20:26)
[2018-12-11] MEDS: PANTOPRAZOLE 40MG TAB (PROTONIX) PO SCH ×2 (08:49→20:25)
[2018-12-11] MEDS: THIAMINE 100 MG TAB PO SCH (08:50)
[2018-12-11] MEDS: FINASTERIDE 5 MG TAB PO SCH (08:50)
[2018-12-11] MEDS: ATORVASTATIN 20 MG TAB PO SCH (08:50)
[2018-12-11] MEDS: DOXAZOSIN MESYLATE 1 MG TAB PO SCH (08:50)
[2018-12-11] MEDS: TIMOLOL MALEATE 0.5% OPHTH SOLN 5 ML OD SCH ×3 (08:55→20:34)
[2018-12-11] MEDS: amLODIPine 5 MG TAB PO SCH (12:18)
[2018-12-11] MEDS ORDERED: FLEET ENEMA PR STA (12:55)
[2018-12-11] MEDS: NS 1,000 ML IV SCH ×2 (13:08→20:38)
[2018-12-11] MEDS ORDERED: LIDOCAINE 2% INJ 100 MG/5 ML SDV (FOR ANES.) As Ordered ONE (14:28)
[2018-12-11] MEDS ORDERED: PROPOFOL 200 MG/20 ML VIAL As Ordered ONE ×2 (14:28→14:45)
[2018-12-11] MEDS ORDERED: ePHEDrine SULFATE 25 MG/5 ML(5MG/ML) SYRINGE As Ordered ONE (14:45)
[2018-12-11] MEDS ORDERED: PHENYLephrine HCL 500 MCG/5 ML (100MCG/ML) SYRINGE (J2370) As Ordered ONE (14:45)
--- NOTE | 2018-12-11 14:45 | IPNPDOC ---
Text Note Date of Service The patient was seen on 12/11/18. NOTE Subjective: Pt states he gets lightheaded upon standing. Denies CP/palpitations. No N/V/Abd pain. Objective: Vitals: (see below) General: No acute distress, laying comfortably in bed. HEENT: Dry mucous membranes. Neck: No JVD or lymphadenopathy Cardiac: RRR, No murmurs Pulm: Clear to auscultation b/l. No wheezing, rhonchi Abd: NT/ND + BS Ext: No edema or cyanosis. Distal pulses intact. Following commands, moving all ext. Labs (see below) Images: CT head on 11/29/18 IMPRESSION: 1. Small vessel ischemic disease. 2. Moderate volume loss. 3. 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 Assessment/Plan 1. Orthostatic Hypotension- started on gentle IVF hydration. D/c lasix. 2. 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 Patient presenting with sodium 118, confusion, and fall. Patient had been on IV fluids. Nephrology consulted. Status post hypertonic saline. We'll continue to monitor serial BMP, as well as mental status. Neuro checks every [address] head (see above). We'll continue to monitor in ICU. Treated with lasix/sodium tablets per nephrology. 3. Anemia 2/2 GI Bleed. ELiquis on hold. Pt planned for colonoscopy/EGD today. S/p PRBC. 4.Hypertension. started on amlodipine 5.S/p Metabolic encephalopathy - ? 2/2 hyponatremia. ?Underlying dementia. CT head (see above). Ammonia,b12 wnl. EEG ordered. Unable to obtain MRI brain per radiologist given prior clips. Dr. Cunningham consulted. 6. Chronic anemia. Hemoglobin stable. Anemia panel sent. No bleeding at this time. Continue to monitor. No need for transfusion at this time. Will need close outpatient follow-up with PCP. 7. History of atrial fibrillation on eliquis. Rate controlled. 8. History of bilateral carotid artery stenosis 9. History of coronary artery disease status post PCI. On aspirin and statin. Will need close outpatient follow-up with cardiology. 10. History of restless leg syndrome 11. Suprasellar arachnoid cyst . DrIvan He discussed case with neurosurgery, Dr. Alamo. Dr. Alamo agreed with outpatient neurosurgery followup given the patient's symptoms have improved. referral made by Dr. England. DVT prophy: SCDs Overall prognosis guarded. PT/OT on board. VS,Fishbone, I+O VS, Fishbone, I+O Laboratory Tests 12/11/18 04:29 Red Blood Count 3.56 L, Mean Corpuscular Volume 80.6, Mean Corpuscular Hemoglobin 25.0 L, Mean Corpuscular Hemoglobin Concent 31.0 L, Red Cell Distribution Width 14.7 H, Calcium Level 8.0 L Vital Signs Date Time Temp Pulse Resp B/P (MAP) Pulse Ox O2 Delivery O2 Flow Rate FiO2 12/11/18 12:20 63 178/80 (112) 61 152/70 (97) 12/11/18 12:00 98.4 18 93 12/08/18 08:06 0.0 I&O- Last 24 Hours up to 6 AM 12/11/18 06:00 Intake Total 1020 ml Output Total 400 ml Balance 620 ml JUAN ALBERTO ZAVALETA MD Dec 11, 2018 14:45
--- NOTE | 2018-12-11 15:04 | ROOR ---
Patient Name: Yasir Guevara Procedure Date: 12/11/2018 2:12 PM Date of : 1930 Age: 88 Room: [facility] Gender: Male Note Status: Finalized Procedure: Upper GI endoscopy Indications: Acute post hemorrhagic anemia, Heme positive stool Providers: Albin Adames MD Referring MD: Radha England Md Requesting Provider: Medicines: Monitored Anesthesia Care Complications: No immediate complications. Procedure: Pre-Anesthesia Assessment: - Prior to the procedure, a History and Physical was performed, and patient medications and allergies were reviewed. The patient is competent. The risks and benefits of the procedure and the sedation options and risks were discussed with the patient. All questions were answered and informed consent was obtained. Patient identification and proposed procedure were verified by the physician, the nurse and the anesthesiologist in the procedure room. Mental Status Examination: alert and oriented. Airway Examination: normal oropharyngeal airway and neck mobility. Respiratory Examination: clear to auscultation. CV Examination: normal. Prophylactic Antibiotics: The patient does not require prophylactic antibiotics. Prior Anticoagulants: The patient has taken no previous anticoagulant or antiplatelet agents. ASA Grade Assessment: III - A patient with severe systemic disease. After reviewing the risks and benefits, the patient was deemed in satisfactory condition to undergo the procedure. The anesthesia plan was to use monitored anesthesia care (MAC). Immediately prior to administration of medications, the patient was re-assessed for adequacy to receive sedatives. The heart rate, respiratory rate, oxygen saturations, blood pressure, adequacy of pulmonary ventilation, and response to care were monitored throughout the procedure. The physical status of the patient was re-assessed after the procedure. The Endoscope was introduced through the mouth, and advanced to the second part of duodenum. The upper GI endoscopy was accomplished without difficulty. The patient tolerated the procedure well. Findings: The examined esophagus was normal. Patchy moderate inflammation characterized by erythema, granularity and linear erosions was found in the gastric fundus and in the gastric body. Biopsies were taken with a cold forceps for Helicobacter pylori testing. Verification of patient identification for the specimen was done by the physician and nurse using the patient's name, date and medical record number. Estimated blood loss was minimal. The duodenal bulb and second portion of the duodenum were normal. Impression: - Normal esophagus. - Gastritis. Biopsied. - Normal duodenal bulb and second portion of the duodenum. Recommendation: - Patient has a contact number available for emergencies. The signs and symptoms of potential delayed complications were discussed with the patient. Return to normal activities tomorrow. Written discharge instructions were provided to the patient. - Resume previous diet. - Continue present medications. - Await pathology results. 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 - If Biopsy shows H. pylori will need therapy with antibiotic course.. - Return to primary care physician. Albin Adames MD Albin Adames MD 12/11/2018 3:03:41 PM This report has been signed electronically. Number of Addenda: 0 Note Initiated On: 12/11/2018 2:12 PM Estimated Blood Loss: Estimated blood loss was minimal.
--- NOTE | 2018-12-11 15:11 | ROOR ---
Patient Name: Yasir Guevara Procedure Date: 12/11/2018 2:10 PM Date of : 1930 Age: 88 Room: [facility] Gender: Male Note Status: Finalized Procedure: Colonoscopy Indications: Gastrointestinal occult blood loss, Acute post hemorrhagic anemia Providers: Albin Adames MD Referring MD: Radha England Md Requesting Provider: Medicines: Monitored Anesthesia Care Complications: No immediate complications. Procedure: Pre-Anesthesia Assessment: - Prior to the procedure, a History and Physical was performed, and patient medications and allergies were reviewed. The patient is competent. The risks and benefits of the procedure and the sedation options and risks were discussed with the patient. All questions were answered and informed consent was obtained. Patient identification and proposed procedure were verified by the physician, the nurse and the anesthesiologist in the procedure room. Mental Status Examination: alert and oriented. Airway Examination: normal oropharyngeal airway and neck mobility. Respiratory Examination: clear to auscultation. CV Examination: normal. Prophylactic Antibiotics: The patient does not require prophylactic antibiotics. Prior Anticoagulants: The patient has taken no previous anticoagulant or antiplatelet agents. ASA Grade Assessment: III - A patient with severe systemic disease. After reviewing the risks and benefits, the patient was deemed in satisfactory condition to undergo the procedure. The anesthesia plan was to use monitored anesthesia care (MAC). Immediately prior to administration of medications, the patient was re-assessed for adequacy to receive sedatives. The heart rate, respiratory rate, oxygen saturations, blood pressure, adequacy of pulmonary ventilation, and response to care were monitored throughout the procedure. The physical status of the patient was re-assessed after the procedure. The colonoscopy was performed without difficulty. The patient tolerated the procedure well. The quality of the bowel preparation was good. The terminal ileum, ileocecal valve, appendiceal orifice, and rectum were photographed. The Colonoscope was introduced through the anus and advanced to the terminal ileum, with identification of the appendiceal orifice and IC valve. Scope insertion time was 5 minutes. Scope withdrawal time was 10 minutes. The total duration of the procedure was 15 minutes. Findings: The perianal and digital rectal examinations were normal. The terminal ileum appeared normal. A 6 mm polyp was found in the rectum. The polyp was sessile. The polyp was removed with a cold biopsy forceps. Resection and retrieval were complete. Verification of patient identification for the specimen was done by the physician and nurse using the patient's name, date and medical record number. Estimated blood loss was minimal. A few small-mouthed diverticula were found in the sigmoid colon. There was no evidence of diverticular bleeding. Non-bleeding external and internal hemorrhoids were found during retroflexion. The hemorrhoids were medium-sized. Impression: - The examined portion of the ileum was normal. - One 6 mm polyp in the rectum, removed with a cold biopsy forceps. Resected and retrieved. - Mild diverticulosis in the sigmoid colon. There was no evidence of diverticular bleeding. - Non-bleeding external and internal hemorrhoids. Recommendation: - Patient has a contact number available for emergencies. The signs and symptoms of potential delayed complications were discussed with the patient. Return to normal activities tomorrow. Written discharge instructions were provided to the patient. - High fiber diet. - Continue present medications. - Await pathology results. - Repeat colonoscopy is not recommended depending on clinical and functional status. - Return to primary care physician. Albin Adames MD Albin Adames MD 12/11/2018 3:11:03 PM This report has been signed electronically. Number of Addenda: 0 Note Initiated On: 12/11/2018 2:10 PM Estimated Blood Loss: Estimated blood loss was minimal.
[2018-12-11] MEDS: LATANOPROST 0.005% OPHTH SOLN 2.5 ML OD SCH (20:27)
[2018-12-12] VITALS (7 sets, daily range): BP systolic 82–182; BP diastolic 54–90
[2018-12-12] MEDS: SLF 3 ML SYR IV SCH ×3 (05:04→21:32)
[2018-12-12 05:10] LABS: HEMATOCRIT 28.1 % (42.0-52.0); HEMOGLOBIN 8.7 g/dl (13.5-17.5); MEAN CORPUSCULAR HEMOGLOBIN 25.2 pg (27.0-33.0); MEAN CORPUSCULAR VOLUME 81.4 fl (80.0-96.0); PLATELET COUNT, AUTOMATED 226 10^3/uL (150-450); RED BLOOD COUNT 3.45 10^6/uL (4.30-6.10); WHITE BLOOD COUNT 3.6 10^3/uL (4.0-10.0)
[2018-12-12 05:27] LABS: BLOOD UREA NITROGEN 11 MG/DL (7-18); CARBON DIOXIDE LEVEL 23 MEQ/L (21-32); CHLORIDE LEVEL 110 MEQ/L (98-107); CREATININE FOR GFR 0.79 MG/DL (0.70-1.30); GLOMERULAR FILTRATION RATE > 60.0 (>35); GLUCOSE, FASTING 94 MG/DL (70-100); POTASSIUM SERUM 3.5 MEQ/L (3.5-5.1); SODIUM LEVEL 141 MEQ/L (136-145)
[2018-12-12 05:28] LABS: CALCIUM LEVEL 7.6 MG/DL (8.8-10.2); MAGNESIUM LEVEL 1.9 MG/DL (1.8-2.4)
[2018-12-12] MEDS: ACYCLOVIR 5% OINT 15GM TOP SCH ×5 (06:06→21:24)
[2018-12-12] MEDS: TIMOLOL MALEATE 0.5% OPHTH SOLN 5 ML OD SCH ×2 (08:07→21:24)
[2018-12-12] MEDS: NS 1,000 ML IV SCH ×2 (08:07→18:23)
[2018-12-12] MEDS: PANTOPRAZOLE 40MG TAB (PROTONIX) PO SCH ×2 (08:07→21:24)
[2018-12-12] MEDS: ATORVASTATIN 20 MG TAB PO SCH (08:08)
[2018-12-12] MEDS: SODIUM CHLORIDE 1 GM TAB PO SCH ×3 (08:08→21:23)
[2018-12-12] MEDS: ASPIRIN 81 MG ENTERIC TAB PO SCH (08:08)
[2018-12-12] MEDS: SENOKOT S TAB PO SCH ×2 (08:10→21:24)
[2018-12-12] MEDS: THIAMINE 100 MG TAB PO SCH (08:10)
[2018-12-12] MEDS: DOXAZOSIN MESYLATE 1 MG TAB PO SCH (10:25)
[2018-12-12] MEDS: FINASTERIDE 5 MG TAB PO SCH (10:25)
[2018-12-12] MEDS: amLODIPine 5 MG TAB PO SCH (10:26)
--- NOTE | 2018-12-12 15:20 | IPNPDOC ---
Text Note Date of Service The patient was seen on 12/12/18. NOTE Subjective:Pt still lightheaded upon standing with +orthostatics. Denies CP/pa lpitations. No N/V/Abd pain. Objective: Vitals: (see below) General: No acute distress, laying comfortably in bed. HEENT: Dry mucous membranes. Neck: No JVD or lymphadenopathy Cardiac: RRR, No murmurs Pulm: Clear to auscultation b/l. No wheezing, rhonchi Abd: NT/ND + BS Ext: No edema or cyanosis. Distal pulses intact. Following commands, moving all ext. Labs (see below) Images: CT head on 11/29/18 IMPRESSION: 1. Small vessel ischemic disease. 2. Moderate volume loss. 3. 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 Assessment/Plan 1. Orthostatic Hypotension- started on gentle IVF hydration. D/c lasix. compression stockings. ?related to Proscar/Cardura. 2. 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 Patient presenting with sodium 118, confusion, and fall. Patient had been on IV fluids. Nephrology consulted. Status post hypertonic saline. We'll continue to monitor serial BMP, as well as mental status. Neuro checks every [address] head (see above). We'll continue to monitor in ICU. Treated with lasix/sodium tablets per nephrology. 3. Anemia 2/2 GI Bleed. ELiquis to be restarted 12/[address] Adames as no acute active bleeding noted on colonoscopy/EGD.. S/p 2 PRBC. 4.Hypertension. started on amlodipine 5.S/p Metabolic encephalopathy - ? 2/2 hyponatremia. ?Underlying dementia. CT head (see above). Ammonia,b12 wnl. EEG ordered. Unable to obtain MRI brain per radiologist given prior clips. Dr. Cunningham consulted. 6. Chronic anemia. Hemoglobin stable. Anemia panel sent. No bleeding at this time. Continue to monitor. No need for transfusion at this time. Will need close outpatient follow-up with PCP. 7. History of atrial fibrillation on eliquis. Rate controlled. 8. History of bilateral carotid artery stenosis 9. History of coronary artery disease status post PCI. On aspirin and statin. Will need close outpatient follow-up with cardiology. 10. History of restless leg syndrome 11. Suprasellar arachnoid cyst . Dr. England discussed case with neurosurgery, Dr. Alamo. Dr. Alamo agreed with outpatient neurosurgery followup given the patient's symptoms have improved. referral made by Dr. England. DVT prophy: SCDs Overall prognosis guarded. PT/OT on board. Will likely need subacute rehab/ARU when medically cleared. Discussed with her daughter, Evie, and updated her on the above.0 VS,Fishbone, I+O VS, Fishbone, I+O Laboratory Tests 12/12/18 04:15 Red Blood Count 3.45 L, Mean Corpuscular Volume 81.4, Mean Corpuscular Hemoglobin 25.2 L, Mean Corpuscular Hemoglobin Concent 31.0 L, Red Cell Distribution Width 14.8 H, Calcium Level 7.6 L Vital Signs Date Time Temp Pulse Resp B/P (MAP) Pulse Ox O2 Delivery O2 Flow Rate FiO2 12/12/18 12:00 98.5 63 20 164/78 (106) 97 12/08/18 08:06 0.0 I&O- Last 24 Hours up to 6 AM 12/12/18 06:00 Intake Total 1070 ml Output Total 1475 ml Balance -405 ml JUAN ALBERTO ZAVALETA MD Dec 12, 2018 15:20
[2018-12-12] MEDS: LATANOPROST 0.005% OPHTH SOLN 2.5 ML OD SCH (21:24)
[2018-12-12] MEDS: APIXABAN 5 MG TAB (ELIQUIS) PO SCH (21:24)
[2018-12-13] VITALS (8 sets, daily range): BP systolic 84–178; BP diastolic 40–92
[2018-12-13] MEDS: NS 1,000 ML IV SCH ×3 (03:49→21:40)
[2018-12-13 05:44] LABS: HEMATOCRIT 28.9 % (42.0-52.0); HEMOGLOBIN 8.8 g/dl (13.5-17.5); MEAN CORPUSCULAR HGB CONC 30.4 g/dl (32.0-36.5); MEAN CORPUSCULAR VOLUME 82.1 fl (80.0-96.0); PLATELET COUNT, AUTOMATED 242 10^3/uL (150-450); RED BLOOD COUNT 3.52 10^6/uL (4.30-6.10); WHITE BLOOD COUNT 4.4 10^3/uL (4.0-10.0)
[2018-12-13] MEDS: SLF 3 ML SYR IV SCH ×3 (05:45→20:34)
[2018-12-13 06:04] LABS: BLOOD UREA NITROGEN 9 MG/DL (7-18); CARBON DIOXIDE LEVEL 25 MEQ/L (21-32); CHLORIDE LEVEL 113 MEQ/L (98-107); CREATININE FOR GFR 0.84 MG/DL (0.70-1.30); GLOMERULAR FILTRATION RATE > 60.0 (>35); GLUCOSE, FASTING 86 MG/DL (70-100); MAGNESIUM LEVEL 1.9 MG/DL (1.8-2.4); POTASSIUM SERUM 4.1 MEQ/L (3.5-5.1); SODIUM LEVEL 142 MEQ/L (136-145)
[2018-12-13] MEDS: ACYCLOVIR 5% OINT 15GM TOP SCH ×5 (06:12→20:34)
[2018-12-13] MEDS: THIAMINE 100 MG TAB PO SCH (08:39)
[2018-12-13] MEDS: PANTOPRAZOLE 40MG TAB (PROTONIX) PO SCH ×2 (08:39→20:32)
[2018-12-13] MEDS: amLODIPine 10 MG TAB PO SCH (08:39)
[2018-12-13] MEDS: ATORVASTATIN 20 MG TAB PO SCH (08:39)
[2018-12-13] MEDS: APIXABAN 5 MG TAB (ELIQUIS) PO SCH ×2 (08:39→20:32)
[2018-12-13] MEDS: SENOKOT S TAB PO SCH ×2 (08:40→20:32)
[2018-12-13] MEDS: DOXAZOSIN MESYLATE 1 MG TAB PO SCH (08:40)
[2018-12-13] MEDS: SODIUM CHLORIDE 1 GM TAB PO SCH ×3 (08:40→20:32)
[2018-12-13] MEDS: TIMOLOL MALEATE 0.5% OPHTH SOLN 5 ML OD SCH ×2 (08:41→20:33)
--- NOTE | 2018-12-13 14:04 | IPNPDOC ---
Text Note Date of Service The patient was seen on 12/13/18. NOTE Subjective:Dizziness improving, although still +orthostatics. Denies CP/palpit ations. No N/V/Abd pain. Objective: Vitals: (see below) General: No acute distress, laying comfortably in bed. HEENT: Dry mucous membranes. Neck: No JVD or lymphadenopathy Cardiac: RRR, No murmurs Pulm: Clear to auscultation b/l. No wheezing, rhonchi Abd: NT/ND + BS Ext: No edema or cyanosis. Distal pulses intact. Following commands, moving all ext. Labs (see below) Images: CT head on 11/29/18 IMPRESSION: 1. Small vessel ischemic disease. 2. Moderate volume loss. 3. 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 Assessment/Plan 1. Orthostatic Hypotension- started on gentle IVF hydration. D/c lasix. compression stockings. ?related to Proscar/Cardura. D/c proscar. 2. 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 Patient presenting with sodium 118, confusion, and fall. Patient had been on IV fluids. Nephrology consulted. Status post hypertonic saline. We'll continue to monitor serial BMP, as well as mental status. Neuro checks every [address] head (see above). We'll continue to monitor in ICU. Treated with lasix/sodium tablets per nephrology. 3. Anemia 2/2 GI Bleed. ELiquis to be restarted 12/[address] Adames as no acute active bleeding noted on colonoscopy/EGD.. S/p 2 PRBC. 4.Hypertension. started on amlodipine 5.S/p Metabolic encephalopathy - ? 2/2 hyponatremia. ?Underlying dementia. CT head (see above). Ammonia,b12 wnl. EEG ordered. Unable to obtain MRI brain per radiologist given prior clips. Dr. Cunningham consulted. 6. Chronic anemia. Hemoglobin stable. Anemia panel sent. No bleeding at this time. Continue to monitor. No need for transfusion at this time. Will need close outpatient follow-up with PCP. 7. History of atrial fibrillation on eliquis. Rate controlled. 8. History of bilateral carotid artery stenosis 9. History of coronary artery disease status post PCI. On aspirin and statin. Will need close outpatient follow-up with cardiology. 10. History of restless leg syndrome 11. Suprasellar arachnoid cyst . Dr. England discussed case with neurosurgery, Dr. Alamo. Dr. Alamo agreed with outpatient neurosurgery followup given the patient's symptoms have improved. referral made by Dr. England. DVT prophy: SCDs Overall prognosis guarded. PT/OT on board. Will likely need subacute rehab/ARU when medically cleared. ARU Screen Discussed with her daughter, Evie, and updated her on the above. VS,Fishbone, I+O VS, Fishbone, I+O Laboratory Tests 12/13/18 05:28 Red Blood Count 3.52 L, Mean Corpuscular Volume 82.1, Mean Corpuscular Hemoglobi n 25.0 L, Mean Corpuscular Hemoglobin Concent 30.4 L, Red Cell Distribution Width 14.9 H, Calcium Level 8.0 L Vital Signs Date Time Temp Pulse Resp B/P (MAP) Pulse Ox O2 Delivery O2 Flow Rate FiO2 12/13/18 12:00 97.6 52 20 108/58 (75) 96 12/08/18 08:06 0.0 I&O- Last 24 Hours up to 6 AM 12/13/18 06:00 Intake Total 1400 ml Output Total 1420 ml Balance -20 ml JUAN ALBERTO ZAVALETA MD Dec 13, 2018 14:04
[2018-12-13] MEDS: LATANOPROST 0.005% OPHTH SOLN 2.5 ML OD SCH (20:33)
[2018-12-14] VITALS (7 sets, daily range): BP systolic 82–182; BP diastolic 50–82
[2018-12-14] MEDS: SLF 3 ML SYR IV SCH ×3 (05:11→21:17)
[2018-12-14] MEDS: ACYCLOVIR 5% OINT 15GM TOP SCH ×5 (05:15→21:15)
[2018-12-14 05:38] LABS: HEMATOCRIT 27.5 % (42.0-52.0); HEMOGLOBIN 8.6 g/dl (13.5-17.5); MEAN CORPUSCULAR HEMOGLOBIN 25.4 pg (27.0-33.0); MEAN CORPUSCULAR HGB CONC 31.3 g/dl (32.0-36.5); MEAN CORPUSCULAR VOLUME 81.1 fl (80.0-96.0); PLATELET COUNT, AUTOMATED 232 10^3/uL (150-450); RED BLOOD COUNT 3.39 10^6/uL (4.30-6.10); WHITE BLOOD COUNT 4.1 10^3/uL (4.0-10.0)
[2018-12-14 06:02] LABS: BLOOD UREA NITROGEN 10 MG/DL (7-18); CALCIUM LEVEL 7.9 MG/DL (8.8-10.2); CARBON DIOXIDE LEVEL 22 MEQ/L (21-32); CHLORIDE LEVEL 113 MEQ/L (98-107); CREATININE FOR GFR 0.76 MG/DL (0.70-1.30); GLOMERULAR FILTRATION RATE > 60.0 (>35); GLUCOSE, FASTING 85 MG/DL (70-100); MAGNESIUM LEVEL 1.7 MG/DL (1.8-2.4); POTASSIUM SERUM 3.7 MEQ/L (3.5-5.1); SODIUM LEVEL 141 MEQ/L (136-145)
--- NOTE | 2018-12-14 08:52 | ECHO ---
DATE OF PROCEDURE: 12/13/2018 REFERRING PHYSICIAN: Naseem Ellis MD INDICATION: Orthostatic hypotension. HEIGHT: 185 cm WEIGHT: 95 kg DIMENSIONS: IVS: 1.1 LV: 5.9 LVPW: 1.0 LA: 4.5 Aorta: 3.4 Mitral E-wave velocity: 91, A-wave 97 E prime septal: 6.1 E prime lateral: 8.1 Left atrial volume index: 35 FINDINGS: The study is of acceptable technical quality. Patient is in sinus rhythm. Left ventricle is normal size and systolic function with estimated left ventricular ejection fraction (LVEF) of 60-65%. Right ventricle also appears normal size. Left atrium is moderately enlarged. Right atrium appears normal. Aortic valve has three leaflet structure. It is minimally sclerotic but mobility is preserved. Mitral and tricuspid valve appears normal. Pulmonic valve was poorly visualized but grossly appears normal. No pericardial effusion is noted. Inferior vena cava was not well seen. Aortic root and aortic arch appear normal. Abdominal aorta was not well visualized. Doppler interrogation reveals no aortic stenosis or insufficiency. There is trace mitral insufficiency and no tricuspid insufficiency. Trace pulmonic insufficiency is also seen. Mitral inflow pattern and tissue Doppler imaging of mitral annulus reveal grade 1 diastolic dysfunction. CONCLUSIONS: 1. Study is of acceptable technical quality. 2. Normal LV size and systolic function, grade 1 diastolic dysfunction. 3. No significant valvular disease. 4. Unable to estimate central venous pressure and pulmonary artery pressure, but no signs to suggest pulmonary hypertension. COMMENTS: Subacute bacterial endocarditis (SBE) prophylaxis is not recommended.
[2018-12-14] MEDS: ATORVASTATIN 20 MG TAB PO SCH (08:58)
[2018-12-14] MEDS: THIAMINE 100 MG TAB PO SCH (08:58)
[2018-12-14] MEDS: APIXABAN 5 MG TAB (ELIQUIS) PO SCH ×2 (08:58→21:15)
[2018-12-14] MEDS: TIMOLOL MALEATE 0.5% OPHTH SOLN 5 ML OD SCH ×2 (08:59→21:15)
[2018-12-14] MEDS: amLODIPine 10 MG TAB PO SCH (08:59)
[2018-12-14] MEDS: PANTOPRAZOLE 40MG TAB (PROTONIX) PO SCH ×2 (08:59→21:15)
[2018-12-14] MEDS: SENOKOT S TAB PO SCH ×2 (08:59→21:15)
[2018-12-14] MEDS: NS 1,000 ML IV SCH (09:01)
--- NOTE | 2018-12-14 09:03 | CR ---
DATE OF CONSULTATION: 12/14/2018 INDICATION: Orthostatic hypotension. HISTORY OF PRESENT ILLNESS: Mr. Guevara is known to me. I was asked by Dr. Ellis to see him because of orthostatic hypotension. The patient actually has been in the hospital for over 2 weeks. He originally came for altered mental status and was found severely hyponatremic and had the syndrome of inappropriate ADH secretion. With alteration in his regimen this condition was fairly rapidly corrected but then it was noted that guaiac-positive stools and was quite anemic and required actually transfusion of 3 units of blood. Subsequent upper and lower endoscopy revealed some chronic abnormalities but no obvious source of bleeding. I was called by Dr. Ellis yesterday evening because he started to have trouble with orthostatic hypotension sometimes as prominent as dropping systolic blood pressure of 50-60 mmHg from lying to standing. He does have complaints of dizziness when he stands up and occasionally to the point that he feels that he might pass out. To the best of my understanding there has not been any syncopal event in the hospital. Talking to the patient he tells me that he is feeling better and he would like to go back to his facility. He lives in some form of assisted living but that I do not believe he is quite ready as yet. Apparently has not been cleared by physical therapy. He denies any chest pain, palpitations or shortness of breath. She has not had any peripheral edema. He also denies any trouble with urination but talking to the staff he goes multiple times every day. Small amounts typically between 100 and 200 mL PAST MEDICAL HISTORY: 1. Coronary artery disease with history of percutaneous intervention several years ago. 2. History of paroxysmal atrial fibrillation. 3. Carotid artery stenosis. 4. Hypercholesterolemia. 5. Arterial hypertension. 6. GERD. 7. Restless leg syndrome. 8. BPH. SURGICAL HISTORY: Coronary interventions otherwise negative. SOCIAL HISTORY: The patient is a . 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 He occasionally drinks alcohol and there is a remote history of smoking. FAMILY HISTORY: Not longer relevant due to his advanced age but there are no first-degree relatives with early coronary artery disease. He had has a history of intolerance to sulfa drugs and citalopram and now we can thiazide diuretics to his regimen of allergies. REVIEW OF SYSTEMS: There has not been any recent fever, chills, nausea, vomiting or diarrhea. No chest pain or palpitations. No rex syncope. He denies any recent peripheral edema. He denies any difficulty urinating. The rest as per HPI or otherwise negative. LABORATORY: CBC reveals hemoglobin 8.5, hematocrit 27, platelet count 249,000. The iron studies were performed on November 30 revealed fairly severe iron deficiency with transferrin saturation only 9.5%. Basic metabolic panel now is normal with sodium 141+, potassium 3.7, chloride 113, creatinine 0.8 and glucose 85. His magnesium this morning was 1.7. ECG on admission is essentially normal revealing sinus rhythm without any obvious repolarization abnormalities. He has been monitored on telemetry and he is predominantly in sinus rhythm. There are occasional brief episodes of atrial fibrillation, none recently and seems that rate is well-controlled. CURRENT MEDICATIONS: Include Tylenol as needed, amlodipine 10 mg a day, apixaban 5 mg twice day, Lipitor 20 mg a day, doxazosin seen 2 mg a day, pantoprazole 40 mg twice a day, sodium chloride 1 gram tablets three times a day, thiamine 100 mg a day and Timolol eyedrops on outpatient basis. The medication list was similar but he also was taking hydrochlorothiazide which was probably the principal reason of his hyponatremia. ASSESSMENT/PLAN: Mr. Guevara is seen 88-year-old man who has history of paroxysmal atrial fibrillation and coronary artery disease who presented originally with hyponatremia very likely brought on by thiazide diuretic. But as of last few days he has been bothered mostly by orthostatic hypotension. He has had similar problems chronically but they are exacerbated due to several factors. First of all he has been quite inactive and mostly bedridden for the last 2 weeks. The other factor is the fact that his anemia is worse than his baseline. And he takes doxazosin which has been associated with orthostatic hypotension. At this point I would advocate to use elastic stockings way which he has been. I am going to discontinue Doxazosin and if pressure becomes extremely elevated I would suggest that he gets spironolactone on top of his amlodipine, but principally I would tolerate somewhat higher blood pressure if it helps reduce episodes of orthostatic hypotension. I am going to give him supplemental iron orally. He has normal renal function and I think there is a decent chance that he will recover his iron stores with just oral replacement, even though it will take a long time and I would think that the anemia certainly contributes to his to his symptoms as well. I do not believe that we can safely discontinue Eliquis without clearly acute bleeding. I am somewhat reassured by the fact that no obvious bleeding source was found during his endoscopies. Hopefully these interventions will bring at least modest improvement. Sometimes it is very challenging to correct orthostatic hypotension. NIKKI
--- NOTE | 2018-12-14 11:40 | IPNPDOC ---
Text Note Date of Service The patient was seen on 12/14/18. NOTE Subjective: Patient feels well overall. Still has orthostatic hypotension. Den ies CP/palpitations. No N/V/Abd pain. Objective: Vitals: (see below) General: No acute distress, laying comfortably in bed. HEENT: Dry mucous membranes. Neck: No JVD or lymphadenopathy Cardiac: RRR, No murmurs Pulm: Clear to auscultation b/l. No wheezing, rhonchi Abd: NT/ND + BS Ext: No edema or cyanosis. Distal pulses intact. Following commands, moving all ext. mentation improved. Labs (see below) Images: CT head on 11/29/18 IMPRESSION: 1. Small vessel ischemic disease. 2. Moderate volume loss. 3. 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 Assessment/Plan 1. Orthostatic Hypotension- started on gentle IVF hydration. D/c lasix. compression stockings. ?related to Proscar/Cardura. D/c proscar. Cardura discontinued by Dr. Bose. Appreciate his input. Dr. Bose does note the patient's had a history of orthostatic hypotension and this is likely an exacerb ation. 2. 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 Patient presenting with sodium 118, confusion, and fall. Patient had been on IV fluids. Nephrology consulted. Status post hypertonic saline. We'll continue to monitor serial BMP, as well as mental status. Neuro checks every [address] head (see above). We'll continue to monitor in ICU. Treated with lasix/sodium tablets per nephrology. 3. Anemia 2/2 GI Bleed. ELiquis to be restarted 12/[address] Adames as no acute active bleeding noted on colonoscopy/EGD.. S/p 2 PRBC. 4.Hypertension. started on amlodipine 5.S/p Metabolic encephalopathy - ? 2/2 hyponatremia. ?Underlying dementia. CT head (see above). Ammonia,b12 wnl. EEG ordered. Unable to obtain MRI brain per radiologist given prior clips. Dr. Cunningham consulted. 6. Chronic anemia. Hemoglobin stable. Anemia panel sent. No bleeding at this time. Continue to monitor. No need for transfusion at this time. Will need close outpatient follow-up with PCP. 7. History of atrial fibrillation on eliquis. Rate controlled. 8. History of bilateral carotid artery stenosis 9. History of coronary artery disease status post PCI. On aspirin and statin. Will need close outpatient follow-up with cardiology. 10. History of restless leg syndrome 11. Suprasellar arachnoid cyst . Dr. England discussed case with neurosurgery, Dr. Alamo. Dr. Alamo agreed with outpatient neurosurgery followup given the patient's symptoms have improved. referral made by Dr. England. DVT prophy: eliquis Overall prognosis guarded. PT/OT on board. Will likely need subacute rehab/ARU when medically cleared. ARU Screen VS,Fishbone, I+O VS, Fishbone, I+O Laboratory Tests 12/14/18 05:15 Red Blood Count 3.39 L, Mean Corpuscular Volume 81.1, Mean Corpuscular Hemoglobin 25.4 L, Mean Corpuscular Hemoglobin Concent 31.3 L, Red Cell Distribution Width 14.9 H, Calcium Level 7.9 L Vital Signs Date Time Temp Pulse Resp B/P (MAP) Pulse Ox O2 Delivery O2 Flow Rate FiO2 12/14/18 08:59 62 182/70 12/14/18 08:00 98.9 20 96 12/08/18 08:06 0.0 I&O- Last 24 Hours up to 6 AM 12/14/18 06:00 Intake Total 540 ml Output Total 1725 ml Balance -1185 ml JUAN ALBERTO ZAVALETA MD Dec 14, 2018 11:40
[2018-12-14] MEDS: IRON POLYSAC (NIFEREX) 150 MG CAP PO SCH ×2 (12:47→21:14)
[2018-12-14 16:59] LABS: CPK CREATINE PHOSPHOKINASE 121 U/L (39-308); MB/CK RELATIVE INDEX 2.31 (< OR =4); TROPONIN I < 0.02 NG/ML (< 0.10)
[2018-12-14] MEDS: LATANOPROST 0.005% OPHTH SOLN 2.5 ML OD SCH ×2 (21:00→21:15)
[2018-12-15] VITALS (8 sets, daily range): BP systolic 72–190; BP diastolic 40–92
[2018-12-15 00:23] LABS: CPK CREATINE PHOSPHOKINASE 114 U/L (39-308); MB/CK RELATIVE INDEX 2.11 (< OR =4); TROPONIN I < 0.02 NG/ML (< 0.10)
[2018-12-15] MEDS: SLF 3 ML SYR IV SCH ×3 (06:20→19:46)
[2018-12-15] MEDS: ACYCLOVIR 5% OINT 15GM TOP SCH ×5 (06:21→19:46)
[2018-12-15 07:41] LABS: HEMATOCRIT 28.1 % (42.0-52.0); HEMOGLOBIN 8.8 g/dl (13.5-17.5); MEAN CORPUSCULAR HEMOGLOBIN 25.6 pg (27.0-33.0); MEAN CORPUSCULAR HGB CONC 31.3 g/dl (32.0-36.5); MEAN CORPUSCULAR VOLUME 81.7 fl (80.0-96.0); PLATELET COUNT, AUTOMATED 246 10^3/uL (150-450); RED BLOOD COUNT 3.44 10^6/uL (4.30-6.10); WHITE BLOOD COUNT 4.7 10^3/uL (4.0-10.0)
[2018-12-15 08:05] LABS: BLOOD UREA NITROGEN 12 MG/DL (7-18); CALCIUM LEVEL 7.8 MG/DL (8.8-10.2); CARBON DIOXIDE LEVEL 24 MEQ/L (21-32); CHLORIDE LEVEL 111 MEQ/L (98-107); CREATININE FOR GFR 0.87 MG/DL (0.70-1.30); GLOMERULAR FILTRATION RATE > 60.0 (>35); GLUCOSE, FASTING 83 MG/DL (70-100); MAGNESIUM LEVEL 1.8 MG/DL (1.8-2.4); POTASSIUM SERUM 4.1 MEQ/L (3.5-5.1); SODIUM LEVEL 142 MEQ/L (136-145)
[2018-12-15 08:09] LABS: CPK CREATINE PHOSPHOKINASE 105 U/L (39-308); MB/CK RELATIVE INDEX 2.19 (< OR =4); TROPONIN I < 0.02 NG/ML (< 0.10)
[2018-12-15] MEDS: ATORVASTATIN 20 MG TAB PO SCH (08:36)
[2018-12-15] MEDS: SENOKOT S TAB PO SCH ×2 (08:36→19:44)
[2018-12-15] MEDS: IRON POLYSAC (NIFEREX) 150 MG CAP PO SCH ×2 (08:36→19:44)
[2018-12-15] MEDS: THIAMINE 100 MG TAB PO SCH (08:36)
[2018-12-15] MEDS: APIXABAN 5 MG TAB (ELIQUIS) PO SCH ×2 (08:36→19:44)
[2018-12-15] MEDS: PANTOPRAZOLE 40MG TAB (PROTONIX) PO SCH ×2 (08:36→19:44)
[2018-12-15] MEDS: TIMOLOL MALEATE 0.5% OPHTH SOLN 5 ML OD SCH ×2 (08:37→19:46)
[2018-12-15] MEDS: amLODIPine 10 MG TAB PO SCH (08:40)
--- NOTE | 2018-12-15 10:49 | IPN ---
DATE OF SERVICE: 12/15/2018 Mr. Guevara is a little confused today. He apparently started to hallucinate yesterday afternoon. He has a very good recollection of it. He tells me that he saw a man sitting in corner of his room and he simultaneously was aware that it was not real. Did try to ambulate him yesterday with physical therapy and also nursing staff, but he got very dizzy and lightheaded and so he spent most of the time in bed. Besides that, though, he denies any other symptoms. He specifically denies any chest pain, palpitations or shortness of breath and has been feeling otherwise well. He tells me that he is bored and would like to return to his assisted living facility. Vital signs: Blood pressure this morning was documented as 159/72, but then when orthostatics are tested, he was dropping from supine 190 to standing 82, heart rate did not change appreciably. He is afebrile. Saturation 99% on room air. Fluid balance yesterday was recorded about equal. Weight is 92.7 kg. This morning he is alert and oriented times three, does not appear to be in any distress, very pleasant. JVP is not high. Lungs are clear. Good air movement. Heart: Exam reveals regular rhythm. There is faint murmur over the aortic valve. No gallop, rub or murmur. Abdomen is soft without tenderness or rebound tenderness. No guarding. Extremities are free of edema. Neurologically his speech is intact. I do not appreciate any focal weakness of any of four extremities. I did not do any formal reflex testing or ambulation. LABORATORY: Hemoglobin is 8.8, hematocrit 28, platelet count 246,000 and basic metabolic panel is normal. Cardiac enzymes were drawn yesterday and have been normal. ASSESSMENT/PLAN: Mr. Guevara is an 88-year-old man who has history of coronary artery disease with remote coronary intervention and also has a history of paroxysmal atrial fibrillation and carotid artery disease. He presented with hyponatremia likely related to administration of diuretics. It corrected quickly but then he started having trouble with anemia and eventually prompted EGD and colonoscopy that did not find any obvious source of bleeding and now he has trouble with altered mental status and orthostatic hypotension. I discontinued his alpha cody yesterday so far without any appreciable benefit. My recommendations are unchanged. I hope that if we can help his anemia and eliminate medications well known to cause orthostatic hypotension that his symptoms will somewhat improve. I am certainly not ready to give him medication to raise his blood pressure especially when he tends to be hypertensive in supine position. I am also very worried about his neurologic abnormalities. It could be a sign of underlying dementia. I do not have any new ideas how to help this delightful gentleman. NIKKI
--- NOTE | 2018-12-15 17:43 | ECGEPIP ---
Stationary ECG Study [facility] Test Date: 2018-12-14 Pat Name: SHITAL DOAN Department: Room: [place] [address] Gender: M Director Of Instructional Technology: KIKO : 1930 Requested By: DIOGENES GARCÍA Order Number: [id number] Reading MD: Kenn Rosales Measurements Intervals [place] Rate: 65 P: RI: 0 QRS: -36 QRSD: 102 T: 6 QT: 409 QTc: 425 Interpretive Statements SUPRAVENTRICULAR RHYTHM MARKED LEFT AXIS DEVIATION Delayed anterior R wave progression ST DEVIATION AND MODERATE T-WAVE ABNORMALITY, CONSIDER ANTERIOR ISCHEMIA Similar to tracing done 11-29-18 Electronically Signed On 12-15-2018 17:42:53 EST by Kenn Rosales
[2018-12-15] MEDS: LATANOPROST 0.005% OPHTH SOLN 2.5 ML OD SCH (19:46)
[2018-12-15] MEDS ORDERED: NYSTATIN 100,000 UNITS/GM TOPICAL PWD 15 GM TOP PRN (22:15)
[2018-12-16] VITALS (8 sets, daily range): BP systolic 60–156; BP diastolic 30–70
[2018-12-16 05:36] LABS: HEMATOCRIT 27.9 % (42.0-52.0); HEMOGLOBIN 8.9 g/dl (13.5-17.5); MEAN CORPUSCULAR HEMOGLOBIN 25.6 pg (27.0-33.0); MEAN CORPUSCULAR HGB CONC 31.9 g/dl (32.0-36.5); MEAN CORPUSCULAR VOLUME 80.4 fl (80.0-96.0); PLATELET COUNT, AUTOMATED 251 10^3/uL (150-450); RED BLOOD COUNT 3.47 10^6/uL (4.30-6.10); WHITE BLOOD COUNT 4.6 10^3/uL (4.0-10.0)
[2018-12-16 05:56] LABS: BLOOD UREA NITROGEN 16 MG/DL (7-18); CALCIUM LEVEL 8.1 MG/DL (8.8-10.2); CARBON DIOXIDE LEVEL 24 MEQ/L (21-32); CHLORIDE LEVEL 109 MEQ/L (98-107); CREATININE FOR GFR 0.88 MG/DL (0.70-1.30); GLOMERULAR FILTRATION RATE > 60.0 (>35); GLUCOSE, FASTING 100 MG/DL (70-100); MAGNESIUM LEVEL 1.9 MG/DL (1.8-2.4); POTASSIUM SERUM 3.5 MEQ/L (3.5-5.1); SODIUM LEVEL 140 MEQ/L (136-145)
[2018-12-16] MEDS: SLF 3 ML SYR IV SCH ×3 (06:18→22:00)
[2018-12-16] MEDS: ACYCLOVIR 5% OINT 15GM TOP SCH ×2 (06:19→09:28)
--- NOTE | 2018-12-16 07:56 | IPN ---
DATE OF SERVICE: 12/15/2018 Patient seen and examined. No acute events overnight. Continued to report lightheadedness upon standing and walking. Denies any chest pain, pressure, discomfort. Denies any shortness of breath. VITAL: SIGNS: Temperature 98.2, pulse 58, respirations 18, blood pressure 130/60, pulse oximetry 97% on room air. LABORATORY: WBC 4.7, hemoglobin and hematocrit 8.8/28.1, platelets 246. Chemistry: Sodium 142, potassium 4.1, chloride 111, bicarbonate 24, BUN 12, creatinine 0.87. Cardiac enzymes negative. PHYSICAL EXAMINATION: General: Patient in no acute distress, comfortable. HEENT: Normocephalic, atraumatic. Moist mucous membrane. Neck supple. Cardiac: Regular, S1, S2. Pulmonary: Bilateral clear. No wheeze, rales or rhonchi. Abdomen: Soft, nontender. Extremities: No clubbing, cyanosis or edema. Moves all four extremities. ASSESSMENT AND PLAN: This is an 88-year-old male patient with underlying medical history of episodic hyponatremia secondary to syndrome of inappropriate antidiuretic hormone secretion, coronary arterial disease, atrial fibrillation on Eliquis, bilateral carotid artery stenosis, dyslipidemia, hypertension, gastroesophageal reflux disease, restless leg, presented with confusion, encephalopathy initially. Hospital course complicated with fecal occult positive and anemia. PROBLEMS: 1. Orthostatic hypotension, given IV fluids. Lasix discontinued. Will place the patient on thigh high compression stocking as tolerated. Continue to follow orthostatic vital signs. Cardiology has been consulted. Candura has been discontinued by cardiology. 2. Severe symptomatic hyponatremia likely hypovolemia in addition to syndrome of inappropriate antidiuretic hormone secretion. Patient's sodium has improved. Have been given IV fluids. 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 As per nephrology, could potentially cause syndrome of inappropriate antidiuretic hormone secretion. Case was discussed with neurosurgery at [facility]. Referral has been made for outpatient followup. Patient currently treated for hyponatremia with Lasix and salt tablet but currently is off of Lasix and salt tablet. 3. Anemia secondary to gastrointestinal (GI) bleed. Eliquis initially on hold but has been restarted on December 12 status post after discussing with GI, status post EGD, colonoscopy. Transfuse 2 units packed red blood cells. Further monitor hemoglobin and hematocrit. Iron supplementation. 4. Hypertension. Norvasc in light or orthostatic hypotension. Monitor blood pressure. Further adjustment as per cardiology. 5. Status post metabolic encephalopathy secondary to hyponatremia versus underlying dementia. CT scan appreciated. Ammonia, B12, EEG has been appreciated. Unable to obtain MRI per radiology because patient has prior clip. Neurology has been consulted. 6. Chronic anemia. Monitor hemoglobin and hematocrit. Patient was transfused and EGD colonoscopy has been done. 7. History of atrial fibrillation, Eliquis and rate controlled. 8. Bilateral carotid artery stenosis, continue Eliquis. 9. Coronary arterial disease, continue aspirin, statin. Eliquis. Cardiology has been consulted. 10. Restless leg. Continue current medication. 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 Case discussed with neurosurgery Dr. Acevedo, [facility]. Agreed with outpatient neurosurgery followup given patient's symptom has much improved. Referral has been made. 12. Deep venous thrombosis (DVT) prophylaxis. Patient on Eliquis. DISPOSITION: Physical therapy (PT), occupational therapy (OT). Fall precaution. ARU screening.
[2018-12-16] MEDS ORDERED: POTASSIUM CHLORIDE 10 MEQ SR TABLET PO ONE (09:00)
[2018-12-16] MEDS: THIAMINE 100 MG TAB PO SCH (09:30)
[2018-12-16] MEDS: amLODIPine 10 MG TAB PO SCH (09:30)
[2018-12-16] MEDS: SENOKOT S TAB PO SCH ×2 (09:30→20:31)
[2018-12-16] MEDS: ATORVASTATIN 20 MG TAB PO SCH (09:30)
[2018-12-16] MEDS: IRON POLYSAC (NIFEREX) 150 MG CAP PO SCH ×2 (09:30→20:31)
[2018-12-16] MEDS: APIXABAN 5 MG TAB (ELIQUIS) PO SCH ×2 (09:30→20:31)
[2018-12-16] MEDS: PANTOPRAZOLE 40MG TAB (PROTONIX) PO SCH ×2 (09:30→20:31)
[2018-12-16] MEDS: TIMOLOL MALEATE 0.5% OPHTH SOLN 5 ML OD SCH ×2 (09:31→20:34)
--- NOTE | 2018-12-16 11:03 | IPN ---
DATE: 12/16/2018 Mr. Guevara is feeling better today. He tells me that he was able to sleep last night and denies any hallucination this morning. He also appears a lot more oriented. Unfortunately, he is still very orthostatic. PHYSICAL EXAMINATION: Elderly man, alert and oriented and appropriate today. Vital signs: Blood pressure was supine 140 systolic and standing down to 60, heart rate remained in 60s, afebrile. Saturation 96% on room air. His jugular venous pressure (JVP) is not high. Weight is 91 kg. Lungs are clear. Heart: Exam reveals regular rhythm without gallop. Abdomen is soft. Extremities are without edema. Review of telemetry tracing reveals no arrhythmias. Basic metabolic panel is normal and CBC reveals ongoing anemia with hemoglobin 8.9. ASSESSMENT/PLAN: Mr. Guevara is an elderly man who has chronic issues but was at this time admitted with hyponatremia, likely related to thiazide diuretics. This problem rapidly corrected but as of last few days, he has had problems with altered mental status and orthostatic hypotension. His alpha cody was discontinued but so far without much effect. I do not have any new recommendations. His cortisol level is pending, but I am doubtful that it will be low considering his hypertension. Otherwise, I do believe that the fixable issue is anemia and hopefully with iron supplementation will see slow improvement. And I am also hoping that as the effect of medications slowly subsides that his symptoms will slowly improve, but unfortunately, I am getting a little skeptical about his ability to return to his assisted living setting.
--- NOTE | 2018-12-16 18:06 | IPNPDOC ---
Text Note Date of Service The patient was seen on 12/16/18. NOTE Patient seen and examined. No acute events overnight. Continued to report lightheadedness upon standing and walking. Reported decreased urinary stream. Denies any chest pain, pressure, discomfort. Denies any shortness of breath. PHYSICAL EXAMINATION: General: Patient in no acute distress, comfortable. HEENT: Normocephalic, atraumatic. Moist mucous membrane. Neck supple. Cardiac: Regular, S1, S2. Pulmonary: Bilateral clear. No wheeze, rales or rhonchi. Abdomen: Soft, nontender. Extremities: No clubbing, cyanosis or edema. Moves all four extremities. ASSESSMENT AND PLAN: This is an 88-year-old male patient with underlying medical history of episodic hyponatremia secondary to syndrome of inappropriate antidiuretic hormone secretion, coronary arterial disease, atrial fibrillation on Eliquis, bilateral carotid artery stenosis, dyslipidemia, hypertension, gastroesophageal reflux disease, restless leg, presented with confusion, encephalopathy initially. Hospital course complicated with fecal occult positive and anemia. PROBLEMS: 1. Orthostatic hypotension, given IV fluids. Lasix discontinued. Will place the patient on thigh high compression stocking as tolerated. Continue to follow orthostatic vital signs. Cardiology has been consulted. Candura has been discontinued by cardiology. am cortisol pending 2. Severe symptomatic hyponatremia likely hypovolemia in addition to syndrome of inappropriate antidiuretic hormone secretion. Patient's sodium has improved. Have been given IV fluids. 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 As per nephrology, could potentially cause syndrome of inappropriate antidiuretic hormone secretion. Case was discussed with neurosurgery at [facility]. Referral has been made for outpatient followup. Patient currently treated for hyponatremia with Lasix and salt tablet but currently is off of Lasix and salt tablet. 3. Anemia secondary to gastrointestinal (GI) bleed. Eliquis initially on hold but has been restarted on December 12 status post after discussing with GI, status post EGD, colonoscopy. Transfuse 2 units packed red blood cells. Further monitor hemoglobin and hematocrit. Iron supplementation. 4. Hypertension. Norvasc in light or orthostatic hypotension. Monitor blood pressure. Further adjustment as per cardiology. 5. Status post metabolic encephalopathy secondary to hyponatremia versus underlying dementia. CT scan appreciated. Ammonia, B12, EEG has been appreciated. Unable to obtain MRI per radiology because patient has prior clip. Neurology has been consulted. 6. Chronic anemia. Monitor hemoglobin and hematocrit. Patient was transfused and EGD colonoscopy has been done. 7. History of atrial fibrillation, Eliquis and rate controlled. 8. Bilateral carotid artery stenosis, continue Eliquis. 9. Coronary arterial disease, continue aspirin, statin. Eliquis. Cardiology has been consulted. 10. Restless leg. Continue current medication. 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 Case discussed with neurosurgery Dr. Acevedo, [facility]. Agreed with outpatient neurosurgery followup given patient's symptom has much improved. Referral has been made. 12. BPH Doxazosin on hold due to orthostatic hypotension. bladder scan 13. Deep venous thrombosis (DVT) prophylaxis. Patient on Eliquis. DISPOSITION: Physical therapy (PT), occupational therapy (OT). Fall precaution. ARU screening. VS,Fishbone, I+O VS, Fishbone, I+O Laboratory Tests 12/16/18 04:53 Red Blood Count 3.47 L, Mean Corpuscular Volume 80.4, Mean Corpuscular Hemoglobin 25.6 L, Mean Corpuscular Hemoglobin Concent 31.9 L, Red Cell Distribution Width 15.3 H, Calcium Level 8.1 L Vital Signs Date Time Temp Pulse Resp B/P (MAP) Pulse Ox O2 Delivery O2 Flow Rate FiO2 12/16/18 09:30 63 151/69 12/16/18 08:00 98.4 20 96 I&O- Last 24 Hours up to 6 AM 12/16/18 06:00 Intake Total 420 ml Output Total 675 ml Balance -255 ml RUTH MERCER MD Dec 16, 2018 18:06
[2018-12-16] MEDS: LATANOPROST 0.005% OPHTH SOLN 2.5 ML OD SCH (20:34)
[2018-12-17 04:00] VITALS: BP 151/72
[2018-12-17 04:57] LABS: HEMATOCRIT 29.7 % (42.0-52.0); HEMOGLOBIN 9.2 g/dl (13.5-17.5); MEAN CORPUSCULAR HEMOGLOBIN 25.1 pg (27.0-33.0); MEAN CORPUSCULAR VOLUME 81.1 fl (80.0-96.0); PLATELET COUNT, AUTOMATED 266 10^3/uL (150-450); RED BLOOD COUNT 3.66 10^6/uL (4.30-6.10); WHITE BLOOD COUNT 5.2 10^3/uL (4.0-10.0)
[2018-12-17 05:19] LABS: BLOOD UREA NITROGEN 18 MG/DL (7-18); CALCIUM LEVEL 8.3 MG/DL (8.8-10.2); CARBON DIOXIDE LEVEL 25 MEQ/L (21-32); CHLORIDE LEVEL 112 MEQ/L (98-107); CREATININE FOR GFR 0.84 MG/DL (0.70-1.30); GLOMERULAR FILTRATION RATE > 60.0 (>35); GLUCOSE, FASTING 84 MG/DL (70-100); POTASSIUM SERUM 4.1 MEQ/L (3.5-5.1); SODIUM LEVEL 143 MEQ/L (136-145)
[2018-12-17] MEDS: SLF 3 ML SYR IV SCH ×3 (06:00→20:52)
[2018-12-17 08:00] VITALS: BP 150/70
[2018-12-17 08:17] VITALS: BP_SYST 100; BP_SYST 150; BP_SYST 78; BP_DIAS 56; BP_DIAS 58; BP_DIAS 70
[2018-12-17] MEDS: PANTOPRAZOLE 40MG TAB (PROTONIX) PO SCH ×2 (09:06→20:50)
[2018-12-17] MEDS: ATORVASTATIN 20 MG TAB PO SCH (09:06)
[2018-12-17] MEDS: SENOKOT S TAB PO SCH ×2 (09:06→20:51)
[2018-12-17] MEDS: amLODIPine 10 MG TAB PO SCH (09:07)
[2018-12-17] MEDS: APIXABAN 5 MG TAB (ELIQUIS) PO SCH ×2 (09:07→20:51)
[2018-12-17] MEDS: THIAMINE 100 MG TAB PO SCH (09:07)
[2018-12-17] MEDS: IRON POLYSAC (NIFEREX) 150 MG CAP PO SCH ×2 (09:07→20:51)
[2018-12-17] MEDS: TIMOLOL MALEATE 0.5% OPHTH SOLN 5 ML OD SCH ×2 (09:08→20:51)
--- NOTE | 2018-12-17 10:03 | IPN ---
DATE: 12/17/2018 Mr. Guevara remains about the same. He has specifically no trouble when he is in bed. He did not try to ambulate today, but yesterday he still was very orthostatic. He denies any chest pain or shortness of breath, has been coughing slightly. He is starting to complain about difficulty urinating after we discontinued both Proscar as well as doxazosin. Vital signs this morning blood pressure 151/72, heart rate has been in 60s, he is afebrile. Saturation is 98% on room air. He is alert and oriented times three, but clearly has trouble recalling events and trouble expressing himself at times. His JVP is not high. Lungs are clear. Good air movement. No wheezing, no crackles, no rhonchi. Heart exam regular rhythm. No gallop. Abdomen soft, nontender. No edema. Neurologically he is intact. Telemetry monitoring reveals no arrhythmias. LABORATORY DATA: Hemoglobin is 9.2, hematocrit 29.7, platelet count 266,000. Basic metabolic panel sodium 143, potassium 4.1, BUN 18, creatinine 0.8 and glucose 84. ASSESSMENT/PLAN: Mr. Guevara is an 88-year-old man who has a multitude of medical issues that include history of coronary artery disease with coronary interventions, history of paroxysmal atrial fibrillation, arterial hypertension, dyslipidemia and benign prostatic hypertrophy (BPH). He was admitted with hyponatremia likely brought on by thiazide diuretics. Subsequently, it was noted he was profoundly anemic and underwent extensive gastrointestinal (GI) evaluation that failed to reveal any obvious bleeding source. In the last several days he has had trouble with orthostatic hypotension. We discontinued the doxazosin, but so far he continues to be symptomatic. At this point, I believe that he no longer has to be on telemetry. He has not had any arrhythmias for several days. I think that the issue at this point will be placement. I believe that he would benefit from short-term rehab, but I will leave it to the appropriate evaluators to decide whether he is a candidate. I had a long discussion with him and his daughter at bedside this morning expressing my doubt that he will be able to return to independent living for at least several weeks. Otherwise, from purely medical perspective I do expect some improvement once the anemia gets better, which looks like there is some trend towards that end, and with some rehab and time, but in really long horizon it is almost certain that he will continue to have similar problems down the road. I do not have anything else new to contribute. I will put him back on Proscar as he does have obstructive symptoms and needs at least some help. Proscar should not affect is orthostatic symptoms.
[2018-12-17 12:00] VITALS: BP 104/56
[2018-12-17] MEDS ORDERED: A-4MIS XX (13:52)
[2018-12-17 16:00] VITALS: BP 106/58
--- NOTE | 2018-12-17 18:44 | IPNPDOC ---
Text Note Date of Service The patient was seen on 12/17/18. NOTE Patient seen and examined. No acute events overnight. Continued to report lightheadedness upon standing and walking. Reported decreased urinary stream. Denies any chest pain, pressure, discomfort. Denies any shortness of breath. PHYSICAL EXAMINATION: General: Patient in no acute distress, comfortable. HEENT: Normocephalic, atraumatic. Moist mucous membrane. Neck supple. Cardiac: Regular, S1, S2. Pulmonary: Bilateral clear. No wheeze, rales or rhonchi. Abdomen: Soft, nontender. Extremities: No clubbing, cyanosis or edema. Moves all four extremities. ASSESSMENT AND PLAN: This is an 88-year-old male patient with underlying medical history of episodic hyponatremia secondary to syndrome of inappropriate antidiuretic hormone secretion, coronary arterial disease, atrial fibrillation on Eliquis, bilateral carotid artery stenosis, dyslipidemia, hypertension, gastroesophageal reflux disease, restless leg, presented with confusion, encephalopathy initially. Hospital course complicated with fecal occult positive and anemia. PROBLEMS: 1. Orthostatic hypotension, given IV fluids. Lasix discontinued. Will place the patient on thigh high compression stocking as tolerated. Continue to follow orthostatic vital signs. Cardiology has been consulted. Doxazosin has been discontinued by cardiology. am cortisol pending. 2. Severe symptomatic hyponatremia likely hypovolemia in addition to syndrome of inappropriate antidiuretic hormone secretion. Patient's sodium has improved. Have been given IV fluids. 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 As per nephrology, could potentially cause syndrome of inappropriate antidiuretic hormone secretion. Case was discussed with neurosurgery at [facility]. Referral has been made for outpatient followup. Patient currently treated for hyponatremia with Lasix and salt tablet but currently is off of Lasix and salt tablet. 3. Anemia secondary to gastrointestinal (GI) bleed. Eliquis initially on hold but has been restarted on December 12 status post after discussing with GI, status post EGD, colonoscopy. Transfuse 2 units packed red blood cells. Further monitor hemoglobin and hematocrit. Iron supplementation. 4. Hypertension. Norvasc in light or orthostatic hypotension. Monitor blood pressure. Further adjustment as per cardiology. 5. Status post metabolic encephalopathy secondary to hyponatremia versus underlying dementia. CT scan appreciated. Ammonia, B12, EEG has been appreciated. Unable to obtain MRI per radiology because patient has prior clip. Neurology has been consulted. 6. Chronic anemia. Monitor hemoglobin and hematocrit. Patient was transfused and EGD colonoscopy has been done. 7. History of atrial fibrillation, Eliquis and rate controlled. 8. Bilateral carotid artery stenosis, continue Eliquis. 9. Coronary arterial disease, continue aspirin, statin. Eliquis. Cardiology has been consulted. 10. Restless leg. Continue current medication. 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 Case discussed with neurosurgery Dr. Acevedo, [facility]. Agreed with outpatient neurosurgery followup given patient's symptom has much improved. Referral has been made. 12. BPH Doxazosin on hold due to orthostatic hypotension. bladder scan, proscar started by Dr Bose. will monitor 13. Deep venous thrombosis (DVT) prophylaxis. Patient on Eliquis. DISPOSITION: Physical therapy (PT), occupational therapy (OT). Fall precaution. Possible placement VS,Fishbone, I+O VS, Fishbone, I+O Laboratory Tests 12/17/18 04:41 Red Blood Count 3.66 L, Mean Corpuscular Volume 81.1, Mean Corpuscular Hemoglobin 25.1 L, Mean Corpuscular Hemoglobin Concent 31.0 L, Red Cell Distribution Width 15.6 H, Calcium Level 8.3 L Vital Signs Date Time Temp Pulse Resp B/P (MAP) Pulse Ox O2 Delivery O2 Flow Rate FiO2 12/17/18 16:00 98.2 67 18 106/58 (60) 98 I&O- Last 24 Hours up to 6 AM 12/17/18 06:00 Intake Total 480 ml Output Total 1234 ml Balance -754 ml RUTH MERCER MD Dec 17, 2018 18:44
[2018-12-17 20:00] VITALS: BP 117/68
[2018-12-17] MEDS: FINASTERIDE 5 MG TAB PO SCH (20:51)
[2018-12-17] MEDS: LATANOPROST 0.005% OPHTH SOLN 2.5 ML OD SCH (20:51)
[2018-12-18] VITALS: BP 108/54
[2018-12-18 04:00] VITALS: BP 120/62
[2018-12-18] MEDS: SLF 3 ML SYR IV SCH ×3 (05:51→22:00)
[2018-12-18 06:13] LABS: HEMOGLOBIN 9.3 g/dl (13.5-17.5); MEAN CORPUSCULAR HEMOGLOBIN 25.7 pg (27.0-33.0); MEAN CORPUSCULAR VOLUME 82.9 fl (80.0-96.0); PLATELET COUNT, AUTOMATED 291 10^3/uL (150-450); RED BLOOD COUNT 3.62 10^6/uL (4.30-6.10); WHITE BLOOD COUNT 5.5 10^3/uL (4.0-10.0)
[2018-12-18 06:33] LABS: BLOOD UREA NITROGEN 24 MG/DL (7-18); CALCIUM LEVEL 8.4 MG/DL (8.8-10.2); CARBON DIOXIDE LEVEL 25 MEQ/L (21-32); CHLORIDE LEVEL 110 MEQ/L (98-107); CREATININE FOR GFR 1.01 MG/DL (0.70-1.30); GLOMERULAR FILTRATION RATE > 60.0 (>35); GLUCOSE, FASTING 84 MG/DL (70-100); POTASSIUM SERUM 4.1 MEQ/L (3.5-5.1); SODIUM LEVEL 141 MEQ/L (136-145)
[2018-12-18 08:00] VITALS: BP_SYST 108; BP_SYST 111; BP_SYST 147; BP_DIAS 52; BP_DIAS 59; BP_DIAS 67
[2018-12-18] MEDS: MIRALAX *UNIT DOSE* 17GM PACKET PO SCH ×2 (09:00→11:09)
[2018-12-18] MEDS: ATORVASTATIN 20 MG TAB PO SCH (09:36)
[2018-12-18] MEDS: SENOKOT S TAB PO SCH ×2 (09:37→20:41)
[2018-12-18] MEDS: APIXABAN 5 MG TAB (ELIQUIS) PO SCH ×2 (09:37→20:40)
[2018-12-18] MEDS: amLODIPine 10 MG TAB PO SCH (09:37)
[2018-12-18] MEDS: PANTOPRAZOLE 40MG TAB (PROTONIX) PO SCH ×2 (09:37→20:41)
[2018-12-18] MEDS: IRON POLYSAC (NIFEREX) 150 MG CAP PO SCH ×2 (09:37→20:41)
[2018-12-18] MEDS: TIMOLOL MALEATE 0.5% OPHTH SOLN 5 ML OD SCH (09:38)
[2018-12-18] MEDS ORDERED: MAGNESIUM CITRATE 300 ML BTL PO ONE (11:00)
[2018-12-18] MEDS: THIAMINE 100 MG TAB PO SCH (11:09)
[2018-12-18 12:00] VITALS: BP 135/64
[2018-12-18 16:00] VITALS: BP_SYST 127; BP_SYST 131; BP_SYST 80; BP_DIAS 48; BP_DIAS 58; BP_DIAS 63
[2018-12-18 20:00] VITALS: BP 128/60
--- NOTE | 2018-12-18 20:24 | IPN ---
DATE: 12/18/2018 I saw Mr. Guevara this morning. I spoke with him extensively and also to his daughter. It looks like his condition is about the same as yesterday, certainly alert and oriented, but he has very obvious memory problems when he cannot recall the simplest events from the last few days. He was able to ambulate yesterday to some degree but continues to have dizziness. Denies any chest pain or shortness of breath. Vital signs this morning reveals still some orthostatic drop in blood pressure from supine 147 systolic to upright 108, but this is dramatically improved compared to a few days ago. Heart rate has been mostly in 50s and 60s and he is afebrile. Saturation was 95% on room air. His fluid balance yesterday was about equal. Weight is documented 91.5 kg. He is alert and oriented and appropriate for the most part, accounting for his memory problems. His JVP is not high. Lungs are clear. Heart: Exam reveals regular rhythm without gallop or rub. Abdomen is soft and nontender. He has no peripheral edema. LABORATORY Hemoglobin is 9.3, hematocrit 30, platelet count 201,000 and basic metabolic panel is essentially normal. ASSESSMENT/PLAN Mr. Tom is an 88-year-old man who came originally with hyponatremia and altered mental status. This rapidly improved but then the next dominant problem became anemia. He is chronically anticoagulated due to history of paroxysmal atrial fibrillation and underlying coronary artery disease, upper and lower endoscopies failed to reveal any obvious bleeding source and consequently, he is maintained on Eliquis. He has been provided with supplemental iron and as of last few days his hemoglobin is slowly improving. As far as the dominant complaint of last few days which is orthostatic hypotension, there has been improvement as well. At this point, I do not have much else to offer to his care. Please call me if additional assistance is desired. I believe that he may benefit from either short term rehab or maybe even some assisted living time or facility. This is to be addressed by social work job titles.
[2018-12-18] MEDS: FINASTERIDE 5 MG TAB PO SCH (20:41)
[2018-12-18] MEDS: LATANOPROST 0.005% OPHTH SOLN 2.5 ML OD SCH (20:41)
--- NOTE | 2018-12-18 20:46 | IPNPDOC ---
Text Note Date of Service The patient was seen on 12/18/18. NOTE Patient seen and examined. No acute events overnight. Continued to report lightheadedness upon standing and walking. Denies any chest pain, pressure, discomfort. Denies any shortness of breath. reported dry eyes PHYSICAL EXAMINATION: General: Patient in no acute distress, comfortable. HEENT: Normocephalic, atraumatic. Moist mucous membrane. Neck supple. Cardiac: Regular, S1, S2. Pulmonary: Bilateral clear. No wheeze, rales or rhonchi. Abdomen: Soft, nontender. Extremities: No clubbing, cyanosis or edema. Moves all four extremities. ASSESSMENT AND PLAN: This is an 88-year-old male patient with underlying medical history of episodic hyponatremia secondary to syndrome of inappropriate antidiuretic hormone secretion, coronary arterial disease, atrial fibrillation on Eliquis, bilateral carotid artery stenosis, dyslipidemia, hypertension, gastroesophageal reflux disease, restless leg, presented with confusion, encephalopathy initially. Hospital course complicated with fecal occult positive and anemia. PROBLEMS: 1. Orthostatic hypotension, given IV fluids. Lasix discontinued. Will place the patient on thigh high compression stocking as tolerated. Continue to follow orthostatic vital signs. Cardiology has been consulted. Doxazosin has been discontinued by cardiology. am cortisol. 2. Severe symptomatic hyponatremia likely hypovolemia in addition to syndrome of inappropriate antidiuretic hormone secretion. Patient's sodium has improved. Have been given IV fluids. 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 As per nephrology, could potentially cause syndrome of inappropriate antidiuretic hormone secretion. Case was discussed with neurosurgery at [facility]. Referral has been made for outpatient followup. Patient currently treated for hyponatremia with Lasix and salt tablet but currently is off of Lasix and salt tablet. 3. Anemia secondary to gastrointestinal (GI) bleed. Eliquis initially on hold but has been restarted on December 12 status post after discussing with GI, status post EGD, colonoscopy. Transfuse 2 units packed red blood cells. Further monitor hemoglobin and hematocrit. Iron supplementation. 4. Hypertension. Norvasc in light or orthostatic hypotension. Monitor blood pressure. Further adjustment as per cardiology. 5. Status post metabolic encephalopathy secondary to hyponatremia versus underlying dementia. CT scan appreciated. Ammonia, B12, EEG has been appreciated. Unable to obtain MRI per radiology because patient has prior clip. Neurology has been consulted. 6. Chronic anemia. Monitor hemoglobin and hematocrit. Patient was transfused and EGD colonoscopy has been done. 7. History of atrial fibrillation, Eliquis and rate controlled. 8. Bilateral carotid artery stenosis, continue Eliquis. 9. Coronary arterial disease, continue aspirin, statin. Eliquis. Cardiology has been consulted. 10. Restless leg. Continue current medication. 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 Case discussed with neurosurgery Dr. Acevedo, [facility]. Agreed with outpatient neurosurgery followup given patient's symptom has much improved. Referral has been made. 12. BPH Doxazosin on hold due to orthostatic hypotension. bladder scan, proscar started by Dr Bose. will monitor 13. constipation , bowel reg 12. Deep venous thrombosis (DVT) prophylaxis. Patient on Eliquis. DISPOSITION: Physical therapy (PT), occupational therapy (OT). Fall precaution. Possible [facility] rehab tomorrow VS,Fishbone, I+O VS, Fishbone, I+O Laboratory Tests 12/18/18 05:27 Red Blood Count 3.62 L, Mean Corpuscular Volume 82.9, Mean Corpuscular Hemoglobin 25.7 L, Mean Corpuscular Hemoglobin Concent 31.0 L, Red Cell Distribution Width 15.9 H, Calcium Level 8.4 L Vital Signs Date Time Temp Pulse Resp B/P (MAP) Pulse Ox O2 Delivery O2 Flow Rate FiO2 12/18/18 20:00 98.8 65 18 128/60 (82) 98 I&O- Last 24 Hours up to 6 AM 12/18/18 05:59 Intake Total 120 ml Output Total 300 ml Balance -180 ml RUTH MERCER MD Dec 18, 2018 20:46
[2018-12-19] VITALS: BP 122/64
[2018-12-19 04:00] VITALS: BP 132/64
[2018-12-19] MEDS: SLF 3 ML SYR IV SCH (04:15)
[2018-12-19 05:44] LABS: HEMATOCRIT 29.7 % (42.0-52.0); HEMOGLOBIN 9.2 g/dl (13.5-17.5); MEAN CORPUSCULAR HEMOGLOBIN 25.2 pg (27.0-33.0); MEAN CORPUSCULAR VOLUME 81.4 fl (80.0-96.0); PLATELET COUNT, AUTOMATED 278 10^3/uL (150-450); RED BLOOD COUNT 3.65 10^6/uL (4.30-6.10); WHITE BLOOD COUNT 5.1 10^3/uL (4.0-10.0)
[2018-12-19 06:09] LABS: BLOOD UREA NITROGEN 21 MG/DL (7-18); CALCIUM LEVEL 8.3 MG/DL (8.8-10.2); CARBON DIOXIDE LEVEL 27 MEQ/L (21-32); CHLORIDE LEVEL 110 MEQ/L (98-107); CREATININE FOR GFR 0.99 MG/DL (0.70-1.30); GLOMERULAR FILTRATION RATE > 60.0 (>35); GLUCOSE, FASTING 87 MG/DL (70-100); MAGNESIUM LEVEL 2.3 MG/DL (1.8-2.4); SODIUM LEVEL 142 MEQ/L (136-145)
[2018-12-19 08:00] VITALS: BP 151/74
[2018-12-19] MEDS: MIRALAX *UNIT DOSE* 17GM PACKET PO SCH (09:44)
[2018-12-19 09:45] VITALS: BP 151/74
[2018-12-19] MEDS: amLODIPine 10 MG TAB PO SCH (09:45)
[2018-12-19] MEDS: SENOKOT S TAB PO SCH (09:45)
[2018-12-19] MEDS: IRON POLYSAC (NIFEREX) 150 MG CAP PO SCH (09:45)
[2018-12-19] MEDS: THIAMINE 100 MG TAB PO SCH (09:45)
[2018-12-19] MEDS: ATORVASTATIN 20 MG TAB PO SCH (09:46)
[2018-12-19] MEDS: APIXABAN 5 MG TAB (ELIQUIS) PO SCH (09:46)
[2018-12-19] MEDS: PANTOPRAZOLE 40MG TAB (PROTONIX) PO SCH (09:46)
[2018-12-19 12:00] VITALS: BP 143/65
[2018-12-19] MEDS ORDERED: AMLO10TA5 PO (12:59)
[2018-12-19] MEDS ORDERED: SENN1TAB2 PO (12:59)
[2018-12-19] MEDS ORDERED: NIFE1TAB62 PO (12:59)
--- NOTE | 2018-12-19 19:56 | DSES ---
DATE OF ADMISSION: 11/29/2018 DATE OF DISCHARGE: 12/19/2018 PRIMARY CARE PROVIDER: Dr. Sterling FIGHTER PILOT: Dr. Bose BIOMEDICAL ANALYTICAL SCIENTIST: Dr. Adames EVS MANAGER: Dr. Richardson UROLOGY: Dr. 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 HISTORY OF PRESENT ILLNESS: This is an 88-year-old male patient with underlying medical history of hyponatremia, SIADH, coronary artery disease, atrial fibrillation, bilateral carotid artery disease, dyslipidemia, hypertension, GERD, restless leg who presented from [facility] who presented to the hospital with confusion. Patient is a poor historian and can not provide useful information. History was taken from patient's son. Patient lives by himself in a [facility] apartment. Over the past few days the patient reported dizziness. Patient fell at home the day before admission with mild contusion to the right arm. Also for the past 2-3 days the patient was very confused and lethargy so family decided to bring the patient to the hospital for evaluation. Patient was in the hospital back in April for confusion and episode of hyponatremia. In the emergency room the patient was found to be hyponatremic. Medicine was called for admission. HOSPITAL COURSE: The patient was admitted to the hospital and nephrology was consulted. The patient was provided with hypertonic saline. EEG was done. CT scan was done. Unable to perform MRI. Patient's hypernatremia was corrected as per nephrology recommendation. CT scan showed suprasellar subarachnoid mass. Urology was consulted. EEG shows encephalopathy. The patient's mental status improved but did not return to baseline. Patient's case was discussed with neurosurgery at [facility] and urology at [facility]. Both agreed that given patient's symptoms has improved and hyponatremia has resolved no emergent transfer is needed. Recommended outpatient followup and given his advanced age surgical options are less likely but outpatient followup recommended. CT scan has been forwarded to [facility]. IV fluid was given for orthostatic hypotension. Patient was also found to be orthostatic hypotension and had anemia requiring transfusion multiple times, Eliquis is temporarily on hold. GI was consulted for EGD colonoscopy which show some gastritis but no acute bleeding. Patients hemoglobin and hematocrit and Eliquis was restarted and aspirin was on hold. Patient was also found to be orthostatic hypotensive. Cardiology was consulted. Patients medication was adjusted including prostate medication, high compression stocking was recommended, bowel regimen was prescribed for constipation. Cardiology consult has been appreciated. Patient is currently tolerating oral with minimal lightheadedness upon standing and walking. Is working with physical therapy who recommend a short term rehabilitation subsequent the decision was made to transfer the patient to short term rehabilitation for further care. VITAL SIGNS: Temperature 97.7, pulse 63, respirations 18, blood pressure 143/68, pulse ox 98% on room air. LABORATORY: WBC 5.1, hemoglobin and hematocrit 9.2 over 29.7, platelets 278. Chemistry: Sodium 142, potassium 4, chloride 110, bicarbonate 27, BUN 21, creatinine 0.99. PHYSICAL EXAMINATION: GENERAL: Patient is alert, comfortable in no acute distress. HEENT: Normocephalic atraumatic. Moist mucous membranes. NECK : Supple. CARDIAC: Regular S1, S2 ABDOMEN: Soft and nontender. EXTREMITIES: No edema bilateral lower extremities. DISCHARGE MEDICATION: Norvasc 10 mg by mouth daily, iron saccharate 1 tablet by mouth twice a day for 30 days, Senna plus 1 tablet by mouth twice a day, Eliquis 5 mg by mouth twice a day, Lipitor 20 mg by mouth daily, Lexapro 10 mg by mouth daily, finasteride 5 mg by mouth daily, Protonix 40 mg by mouth twice a day, PreserVision 1 capsule by mouth twice a day, Timolol eye drops twice a day, travoprost eye drop at bedtime. DISCHARGE INSTRUCTIONS: Please see primary care provider in 7 days. Please followup orthostatic blood pressure. Please see cardiology Dr. Bose in 14 days. Please see neurosurgery at [facility] in 10 days. Followup BMP at short term rehabilitation. Fall precaution. Return if symptoms worsen. Further care as per provider at short term rehabilitation. Patient is discharged to [facility]. Time spent arranging and coordinating discharge 35 minutes.
[2018-12-19] MEDS ORDERED: TIMOLOL MALEATE 0.5% OPHTH SOLN 5 ML OD SCH (21:00)
== END 2018-12-19 13:52 | DRG 643 ==
LOC: EDBD 16:05 → M ED 16:05 → M ED INP 21:06 → M ICU 22:49 → M PCU 12-02 15:38
PROVIDERS: ADMIT Hospitalist; ATTEND Hospitalist
PROC: 30233N1 Transfusion of Nonautologous Red Blood Cells into Peripheral Vein, Percutaneous Approach (ICD-10-PCS; 2018-11-30)
PROC: 0DBP8ZX Excision of Rectum, Via Natural or Artificial Opening Endoscopic, Diagnostic (ICD-10-PCS; 2018-12-11)
PROC: 0DB78ZX Excision of Stomach, Pylorus, Via Natural or Artificial Opening Endoscopic, Diagnostic (ICD-10-PCS; principal; 2018-12-11 13:10)
DX: E22.2 Syndrome of inappropriate secretion of antidiuretic hormone (principal); G93.41 Metabolic encephalopathy; D62 Acute posthemorrhagic anemia; R41.82 Altered mental status, unspecified; I25.10 Atherosclerotic heart disease of native coronary artery without angina pectoris; I48.2 Chronic atrial fibrillation; I65.23 Occlusion and stenosis of bilateral carotid arteries; E78.5 Hyperlipidemia, unspecified; I10 Essential (primary) hypertension; R32 Unspecified urinary incontinence; I95.1 Orthostatic hypotension; K21.9 Gastro-esophageal reflux disease without esophagitis; K64.4 Residual hemorrhoidal skin tags; K29.70 Gastritis, unspecified, without bleeding; K59.09 Other constipation; K64.8 Other hemorrhoids; R19.5 Other fecal abnormalities; G93.0 Cerebral cysts; K62.1 Rectal polyp; N40.1 Benign prostatic hyperplasia with lower urinary tract symptoms; K57.30 Diverticulosis of large intestine without perforation or abscess without bleeding; E87.6 Hypokalemia; G25.81 Restless legs syndrome; Z95.5 Presence of coronary angioplasty implant and graft; Z87.891 Personal history of nicotine dependence; Z79.01 Long term (current) use of anticoagulants; Z79.82 Long term (current) use of aspirin; Z79.899 Other long term (current) drug therapy

== ENCOUNTER → 2018-12-20 | Outpatient (REF) ==
[~2018-12-20] MED LIST changes: +A-4MIS XX; +AMLO10TA5 PO; +AMLO5TAB6; +ASPI81TAEC PO; +DOXA2TAB3 PO; +NIFE1TAB62 PO
[2018-12-20 11:25] LABS: HEMATOCRIT 32.5 % (42.0-52.0); MEAN CORPUSCULAR HEMOGLOBIN 25.3 pg (27.0-33.0); MEAN CORPUSCULAR HGB CONC 30.8 g/dl (32.0-36.5); MEAN CORPUSCULAR VOLUME 82.3 fl (80.0-96.0); PLATELET COUNT, AUTOMATED 354 10^3/uL (150-450); RED BLOOD COUNT 3.95 10^6/uL (4.30-6.10); WHITE BLOOD COUNT 6.2 10^3/uL (4.0-10.0)
[2018-12-20 11:30] LABS: BLOOD UREA NITROGEN 18 MG/DL (7-18); CALCIUM LEVEL 8.8 MG/DL (8.8-10.2); CARBON DIOXIDE LEVEL 27 MEQ/L (21-32); CHLORIDE LEVEL 109 MEQ/L (98-107); CREATININE FOR GFR 0.94 MG/DL (0.70-1.30); GLOMERULAR FILTRATION RATE > 60.0 (>35); GLUCOSE, FASTING 88 MG/DL (70-100); POTASSIUM SERUM 4.6 MEQ/L (3.5-5.1); SODIUM LEVEL 142 MEQ/L (136-145)
== END ==
DX: E87.1 Hypo-osmolality and hyponatremia (principal)

== ENCOUNTER → 2018-12-24 | Outpatient (REF) | payer MEDICARE ==
[2018-12-24 11:55] LABS: HEMATOCRIT 33.5 % (42.0-52.0); HEMOGLOBIN 10.3 g/dl (13.5-17.5); MEAN CORPUSCULAR HEMOGLOBIN 25.9 pg (27.0-33.0); MEAN CORPUSCULAR HGB CONC 30.7 g/dl (32.0-36.5); MEAN CORPUSCULAR VOLUME 84.4 fl (80.0-96.0); PLATELET COUNT, AUTOMATED 291 10^3/uL (150-450); RED BLOOD COUNT 3.97 10^6/uL (4.30-6.10); WHITE BLOOD COUNT 4.2 10^3/uL (4.0-10.0)
[2018-12-24 12:22] LABS: BLOOD UREA NITROGEN 15 MG/DL (7-18); CALCIUM LEVEL 8.3 MG/DL (8.8-10.2); CARBON DIOXIDE LEVEL 25 MEQ/L (21-32); CHLORIDE LEVEL 108 MEQ/L (98-107); CREATININE FOR GFR 0.83 MG/DL (0.70-1.30); GLOMERULAR FILTRATION RATE > 60.0 (>35); GLUCOSE, FASTING 78 MG/DL (70-100); POTASSIUM SERUM 4.3 MEQ/L (3.5-5.1); SODIUM LEVEL 140 MEQ/L (136-145)
== END ==
DX: E87.1 Hypo-osmolality and hyponatremia (principal)

== ENCOUNTER → 2018-12-27 | Outpatient (REF) | payer MEDICARE ==
[2018-12-27 10:34] LABS: HEMATOCRIT 32.2 % (42.0-52.0); HEMOGLOBIN 9.9 g/dl (13.5-17.5); MEAN CORPUSCULAR HEMOGLOBIN 25.9 pg (27.0-33.0); MEAN CORPUSCULAR HGB CONC 30.7 g/dl (32.0-36.5); MEAN CORPUSCULAR VOLUME 84.3 fl (80.0-96.0); PLATELET COUNT, AUTOMATED 255 10^3/uL (150-450); RED BLOOD COUNT 3.82 10^6/uL (4.30-6.10); WHITE BLOOD COUNT 5.3 10^3/uL (4.0-10.0)
[2018-12-27 10:47] LABS: BLOOD UREA NITROGEN 18 MG/DL (7-18); CALCIUM LEVEL 8.6 MG/DL (8.8-10.2); CARBON DIOXIDE LEVEL 24 MEQ/L (21-32); CHLORIDE LEVEL 106 MEQ/L (98-107); CREATININE FOR GFR 0.83 MG/DL (0.70-1.30); GLOMERULAR FILTRATION RATE > 60.0 (>35); GLUCOSE, FASTING 77 MG/DL (70-100); POTASSIUM SERUM 4.1 MEQ/L (3.5-5.1); SODIUM LEVEL 139 MEQ/L (136-145)
== END ==
DX: E87.1 Hypo-osmolality and hyponatremia (principal)

== ENCOUNTER → 2018-12-31 | Outpatient (REF) | payer MEDICARE ==
[~2018-12-31] MED LIST changes: -/SENOSTA PO; +ACET-716 PO; -ACET30TAB PO; +ASPI-286 PO; +BISA10SU4 PR; -CHIL81CH2 PO; +ELIQ2.5T PO; +FERR325T3 PO; +FLEEENE12 PR; +FLUD0.1T PO; +LATA0.0013; -LATA5OPD; +LEXA1TAB PO; +MIDO5TA PO; +NON-325T5 PO; +OMEP20CA3 PO; +PRES10CA2 PO; +QUET1TAB7 PO; -SENN1TAB2 PO; +SENN1TAB36 PO; +SENN1TAB40 PO; +SENO1TAB PO; -VALS1TAB47 PO; +VALS1TAB67 PO
[2018-12-31 10:07] LABS: HEMATOCRIT 32.3 % (42.0-52.0); HEMOGLOBIN 10.1 g/dl (13.5-17.5); MEAN CORPUSCULAR HEMOGLOBIN 26.3 pg (27.0-33.0); MEAN CORPUSCULAR HGB CONC 31.3 g/dl (32.0-36.5); MEAN CORPUSCULAR VOLUME 84.1 fl (80.0-96.0); PLATELET COUNT, AUTOMATED 192 10^3/uL (150-450); RED BLOOD COUNT 3.84 10^6/uL (4.30-6.10); WHITE BLOOD COUNT 4.6 10^3/uL (4.0-10.0)
[2018-12-31 10:33] LABS: BLOOD UREA NITROGEN 17 MG/DL (7-18); CALCIUM LEVEL 8.7 MG/DL (8.8-10.2); CARBON DIOXIDE LEVEL 27 MEQ/L (21-32); CHLORIDE LEVEL 107 MEQ/L (98-107); CREATININE FOR GFR 0.73 MG/DL (0.70-1.30); GLOMERULAR FILTRATION RATE > 60.0 (>35); GLUCOSE, FASTING 71 MG/DL (70-100); POTASSIUM SERUM 4.6 MEQ/L (3.5-5.1); SODIUM LEVEL 141 MEQ/L (136-145)
== END ==
DX: E87.1 Hypo-osmolality and hyponatremia (principal)

== ENCOUNTER → 2019-01-02 | Outpatient (REF) | payer MEDICARE ==
[2019-01-02 09:56] LABS: HEMATOCRIT 33.8 % (42.0-52.0); HEMOGLOBIN 10.3 g/dl (13.5-17.5); MEAN CORPUSCULAR HEMOGLOBIN 25.7 pg (27.0-33.0); MEAN CORPUSCULAR HGB CONC 30.5 g/dl (32.0-36.5); MEAN CORPUSCULAR VOLUME 84.3 fl (80.0-96.0); PLATELET COUNT, AUTOMATED 209 10^3/uL (150-450); RED BLOOD COUNT 4.01 10^6/uL (4.30-6.10); WHITE BLOOD COUNT 5.3 10^3/uL (4.0-10.0)
[2019-01-02 10:22] LABS: BLOOD UREA NITROGEN 19 MG/DL (7-18); CALCIUM LEVEL 8.3 MG/DL (8.8-10.2); CARBON DIOXIDE LEVEL 26 MEQ/L (21-32); CHLORIDE LEVEL 107 MEQ/L (98-107); CREATININE FOR GFR 0.88 MG/DL (0.70-1.30); GLOMERULAR FILTRATION RATE > 60.0 (>35); GLUCOSE, FASTING 108 MG/DL (70-100); POTASSIUM SERUM 3.7 MEQ/L (3.5-5.1); SODIUM LEVEL 140 MEQ/L (136-145)
== END ==
DX: I10 Essential (primary) hypertension (principal)

== ENCOUNTER → 2019-01-07 | Outpatient (REF) | payer MEDICARE ==
[~2019-01-07] MED LIST changes: +/SENOSTA PO; -ACET-716 PO; +ACET30TAB PO; -ASPI-286 PO; -BISA10SU4 PR; +CHIL81CH2 PO; -ELIQ2.5T PO; -FERR325T3 PO; -FLEEENE12 PR; -FLUD0.1T PO; -LATA0.0013; +LATA5OPD; -LEXA1TAB PO; -MIDO5TA PO; -NON-325T5 PO; -OMEP20CA3 PO; -PRES10CA2 PO; -QUET1TAB7 PO; +SENN1TAB2 PO; -SENN1TAB36 PO; -SENN1TAB40 PO; -SENO1TAB PO; +VALS1TAB47 PO; -VALS1TAB67 PO
[2019-01-07 09:16] LABS: HEMATOCRIT 32.9 % (42.0-52.0); HEMOGLOBIN 10.3 g/dl (13.5-17.5); MEAN CORPUSCULAR HEMOGLOBIN 26.5 pg (27.0-33.0); MEAN CORPUSCULAR HGB CONC 31.3 g/dl (32.0-36.5); MEAN CORPUSCULAR VOLUME 84.8 fl (80.0-96.0); PLATELET COUNT, AUTOMATED 169 10^3/uL (150-450); RED BLOOD COUNT 3.88 10^6/uL (4.30-6.10); WHITE BLOOD COUNT 4.9 10^3/uL (4.0-10.0)
[2019-01-07 11:22] LABS: BLOOD UREA NITROGEN 16 MG/DL (7-18); CALCIUM LEVEL 8.2 MG/DL (8.8-10.2); CARBON DIOXIDE LEVEL 26 MEQ/L (21-32); CHLORIDE LEVEL 109 MEQ/L (98-107); CREATININE FOR GFR 0.92 MG/DL (0.70-1.30); GLOMERULAR FILTRATION RATE > 60.0 (>35); GLUCOSE, FASTING 72 MG/DL (70-100); POTASSIUM SERUM 4.4 MEQ/L (3.5-5.1); SODIUM LEVEL 141 MEQ/L (136-145)
== END ==
DX: E87.1 Hypo-osmolality and hyponatremia (principal)

== ENCOUNTER → 2019-01-10 | Outpatient (REF) | payer MEDICARE ==
[~2019-01-10] MED LIST changes: -/SENOSTA PO; +ACET-716 PO; -ACET30TAB PO; +ASPI-286 PO; +BISA10SU4 PR; -CHIL81CH2 PO; +ELIQ2.5T PO; +FERR325T3 PO; +FLEEENE12 PR; +FLUD0.1T PO; +LATA0.0013; -LATA5OPD; +LEXA1TAB PO; +MIDO5TA PO; +NON-325T5 PO; +OMEP20CA3 PO; +PRES10CA2 PO; +QUET1TAB7 PO; -SENN1TAB2 PO; +SENN1TAB36 PO; +SENN1TAB40 PO; +SENO1TAB PO; -VALS1TAB47 PO; +VALS1TAB67 PO
[2019-01-10 10:04] LABS: HEMATOCRIT 36.3 % (42.0-52.0); HEMOGLOBIN 11.1 g/dl (13.5-17.5); MEAN CORPUSCULAR HEMOGLOBIN 26.1 pg (27.0-33.0); MEAN CORPUSCULAR HGB CONC 30.6 g/dl (32.0-36.5); MEAN CORPUSCULAR VOLUME 85.4 fl (80.0-96.0); PLATELET COUNT, AUTOMATED 240 10^3/uL (150-450); RED BLOOD COUNT 4.25 10^6/uL (4.30-6.10); WHITE BLOOD COUNT 9.1 10^3/uL (4.0-10.0)
[2019-01-10 10:27] LABS: BLOOD UREA NITROGEN 17 MG/DL (7-18); CALCIUM LEVEL 8.4 MG/DL (8.8-10.2); CARBON DIOXIDE LEVEL 25 MEQ/L (21-32); CHLORIDE LEVEL 106 MEQ/L (98-107); CREATININE FOR GFR 0.96 MG/DL (0.70-1.30); GLOMERULAR FILTRATION RATE > 60.0 (>35); GLUCOSE, FASTING 89 MG/DL (70-100); POTASSIUM SERUM 3.6 MEQ/L (3.5-5.1); SODIUM LEVEL 141 MEQ/L (136-145)
== END ==
DX: E87.1 Hypo-osmolality and hyponatremia (principal)

== ENCOUNTER → 2019-01-14 | Outpatient (REF) | payer MEDICARE ==
[~2019-01-14] MED LIST changes: -ELIQ2.5T PO; -QUET1TAB7 PO
[2019-01-14 09:54] LABS: HEMOGLOBIN 9.2 g/dl (13.5-17.5); MEAN CORPUSCULAR HEMOGLOBIN 26.6 pg (27.0-33.0); MEAN CORPUSCULAR HGB CONC 30.7 g/dl (32.0-36.5); MEAN CORPUSCULAR VOLUME 86.7 fl (80.0-96.0); PLATELET COUNT, AUTOMATED 168 10^3/uL (150-450); RED BLOOD COUNT 3.46 10^6/uL (4.30-6.10); WHITE BLOOD COUNT 6.2 10^3/uL (4.0-10.0)
[2019-01-14 12:58] LABS: BLOOD UREA NITROGEN 20 MG/DL (7-18); CALCIUM LEVEL 8.5 MG/DL (8.8-10.2); CARBON DIOXIDE LEVEL 27 MEQ/L (21-32); CHLORIDE LEVEL 109 MEQ/L (98-107); GLOMERULAR FILTRATION RATE > 60.0 (>35); GLUCOSE, FASTING 77 MG/DL (70-100); SODIUM LEVEL 142 MEQ/L (136-145)
== END ==
DX: E87.1 Hypo-osmolality and hyponatremia (principal)

== ENCOUNTER 2019-01-16 06:35 | Inpatient (IN) | payer MEDICARE ==
[2019-01-16] VITALS (20 sets, daily range): BP systolic 130–199; BP diastolic 59–118
[~2019-01-16] VITALS: Ht 175.3 cm; Wt 81.6 kg
[~2019-01-16 06:35] MED LIST changes: -BISA10SU4 PR; -FERR325T3 PO; -FLEEENE12 PR; -FLUD0.1T PO; -LEXA1TAB PO; -MIDO5TA PO; -NON-325T5 PO; -OMEP20CA3 PO; -PRES10CA2 PO; -SENN1TAB36 PO
[2019-01-16] MEDS ORDERED: NS 500 ML IV ONE (07:15)
[2019-01-16 07:22] LABS: BASO % 0.1 % (0.0-1.0); EOS # 0.1 10^3/uL (0.0-0.50); EOS % 1.6 % (0.0-3.0); HEMATOCRIT 30.7 % (42.0-52.0); HEMOGLOBIN 9.4 g/dl (13.5-17.5); LYMPH # 1.4 10^3/uL (1.5-4.5); LYMPH % 19.9 % (24.0-44.0); MEAN CORPUSCULAR HEMOGLOBIN 26.2 pg (27.0-33.0); MEAN CORPUSCULAR HGB CONC 30.6 g/dl (32.0-36.5); MEAN CORPUSCULAR VOLUME 85.5 fl (80.0-96.0); MONO # 0.5 10^3/uL (0.0-0.8); MONO % 7.8 % (0.0-5.0); NEUTROPHILS # 4.8 10^3/uL (1.8-7.7); NEUTROPHILS % 70.2 % (36.0-66.0); PLATELET COUNT, AUTOMATED 192 10^3/uL (150-450); RED BLOOD COUNT 3.59 10^6/uL (4.30-6.10); WHITE BLOOD COUNT 6.8 10^3/uL (4.0-10.0)
--- NOTE | 2019-01-16 07:31 | REP ---
Portable chest, some of 05:00 a.m., single semi upright AP view: Comparisons are 11/30/2018 and 05/19/2018. There is interstitial coarsening, particularly in the lung bases as an interval change. There are no focal infiltrates. There is questionably a tiny left pleural effusion. Cardiac size is upper normal. The the summer, mediastinum, skeletal structures are unremarkable. Impression: Bilateral lower lung field interstitial coarsening. Tiny left pleural effusion. Electronically Signed by Kwame Jenkins MD 01/16/2019 07:23 A
[2019-01-16 07:35] LABS: INR 1.42; PROTHROMBIN TIME 17.6 SECONDS (12.1-14.4)
[2019-01-16 07:36] LABS: PARTIAL THROMBOPLASTIN TIME 43.4 SECONDS (25.4-37.6)
[2019-01-16] MEDS ORDERED: LEXA1TAB PO (07:50)
[2019-01-16] MEDS ORDERED: PRES10CA2 PO (07:50)
[2019-01-16] MEDS ORDERED: ATOR1TAB21 PO (07:50)
[2019-01-16] MEDS ORDERED: FLUD0.1T PO (07:50)
[2019-01-16] MEDS ORDERED: FERR325T3 PO (07:50)
[2019-01-16] MEDS ORDERED: BISA10SU4 PR (07:50)
[2019-01-16] MEDS ORDERED: OMEP20CA3 PO (07:50)
[2019-01-16] MEDS ORDERED: MOM30SS PO (07:50)
[2019-01-16] MEDS ORDERED: NON-325T5 PO (07:50)
[2019-01-16] MEDS ORDERED: SENN1TAB36 PO (07:50)
[2019-01-16] MEDS ORDERED: MIDO5TA PO (07:50)
[2019-01-16] MEDS ORDERED: FLEEENE12 PR (07:56)
[2019-01-16 07:59] LABS: ALBUMIN 2.6 GM/DL (3.2-5.2); ALT/SGPT 11 U/L (12-78); BILIRUBIN,DIRECT 0.2 MG/DL (0.0-0.2); BILIRUBIN,TOTAL 0.5 MG/DL (0.2-1.0); BLOOD UREA NITROGEN 14 MG/DL (7-18); CALCIUM LEVEL 7.4 MG/DL (8.8-10.2); CARBON DIOXIDE LEVEL 24 MEQ/L (21-32); CHLORIDE LEVEL 116 MEQ/L (98-107); CPK CREATINE PHOSPHOKINASE 48 U/L (39-308); CREATININE FOR GFR 0.81 MG/DL (0.70-1.30); FREE T4 1.06 NG/DL (0.76-1.46); GLOMERULAR FILTRATION RATE > 60.0 (>35); GLUCOSE, FASTING 81 MG/DL (70-100); MB/CK RELATIVE INDEX 2.29 (< OR =4); POTASSIUM SERUM 3.8 MEQ/L (3.5-5.1); SODIUM LEVEL 146 MEQ/L (136-145); TOTAL PROTEIN 5.1 GM/DL (6.4-8.2); TROPONIN I 0.04 NG/ML (< 0.10)
[2019-01-16] MEDS ORDERED: OMEPRAZOLE 20 MG CAP PO SCH (09:00)
[2019-01-16] MEDS: FINASTERIDE 5 MG TAB PO SCH (09:00)
[2019-01-16] MEDS ORDERED: ACETAMINOPHEN TAB 650MG DOSE (2X325MG) PO PRN (09:45)
[2019-01-16] MEDS ORDERED: BISACODYL 10 MG SUPP PR PRN (09:45)
[2019-01-16] MEDS ORDERED: ATROPINE SULF 1MG/10ML SYRINGE (J0461) IV PRN (09:45)
[2019-01-16] MEDS ORDERED: MOM 30ML SUSPENSION UDC PO PRN (09:45)
[2019-01-16] MEDS ORDERED: NS 1,000 ML IV SCH (09:45)
[2019-01-16] MEDS ORDERED: D5W 1,000 ML IV SCH (11:00)
[2019-01-16] MEDS: FERROUS SULFATE 325MG TAB PO SCH (11:52)
[2019-01-16] MEDS: SENOKOT S TAB PO SCH ×2 (11:52→21:00)
[2019-01-16 12:27] LABS: BLOOD UREA NITROGEN 14 MG/DL (7-18); CALCIUM LEVEL 8.2 MG/DL (8.8-10.2); CARBON DIOXIDE LEVEL 24 MEQ/L (21-32); CHLORIDE LEVEL 113 MEQ/L (98-107); CREATININE FOR GFR 0.96 MG/DL (0.70-1.30); GLOMERULAR FILTRATION RATE > 60.0 (>35); GLUCOSE, FASTING 82 MG/DL (70-100); POTASSIUM SERUM 3.7 MEQ/L (3.5-5.1); SODIUM LEVEL 143 MEQ/L (136-145)
[2019-01-16 15:03] LABS: HEMATOCRIT 29.7 % (42.0-52.0); HEMOGLOBIN 9.3 g/dl (13.5-17.5)
[2019-01-16] MEDS: D5W/0.45% SODIUM CHLORIDE 1,000 ML IV SCH (15:44)
--- NOTE | 2019-01-16 16:41 | HPEPDOC ---
General Date of Admission Jan 16, 2019 at 09:25 Chief Complaint The patient is a 88-year-old male admitted with a reason for visit of Heart Blo ck Atrioventricular Symptomatic Bradycard. Source: Patient, Family (daughter) History of Present Illness The patient is an 88-year-old white male with a pertinent past medical history of A. fib on Eliquis but not on beta cody, who presented to the ER via EMS early this morning from [facility] for bradycardia. The patient is not the best historian, and lot of the information was supplemented by his daughter in bedside. He states when presented to the ER, he has been experience nausea, extreme fatigue. He states that he had a near syncope event earlier this morning after a really large bowel movement. He is unable to state if the bowl movement was bloody or lose. He does state that he felt very weak and was having a hard time getting back to bed. When he requested assistance his attendant if vitals were taking which showed that his heart rate was in the low 40s and we was then sent the ER for further evaluation. He denies sob, chest pain, and loc. Patient reports that he has light headed episodes every Monday but daughter denies any previous reports. Daughter states that ~10 days ago the patient had been experiencing low blood pressure and his hypertensive medication were discontinued. He has had labs drawn which were stable and he was started on midodrine. The daughter was unable to remember how low his pressure went. Daughter also admits the last Eliquis 5mg dose was the night prior to presentation. In the ER, pacer pads were placed and bedside EKG showed vent rate of 44bpm and av dissociation consistent with possible high grade AV lynne block. The case was discussed with his telephone station repairer, Dr. Bose, and who recommended the patient to admitted for pacemaker placement, by Dr. Salcido. Home Medications Scheduled Apixaban (Eliquis) 5 Mg Tab, 5 MG PO BID, (Reported) Atorvastatin Calcium (Atorvastatin Calcium) 20 Mg Tablet, 20 MG PO QHS, (Reported) Escitalopram Oxalate (Lexapro) 10 Mg Tablet, 10 MG PO DAILY, (Reported) Ferrous Sulfate (Ferrous Sulfate) 325 Mg Tablet., 325 MG PO 3XW, (Reported) MON,WED,FRI Finasteride (Finasteride) 5 Mg Tab, 5 MG PO DAILY, (Reported) Fludrocortisone Acetate (Fludrocortisone Acetate) 0.1 Mg Tablet, 0.1 MG PO QPM, (Reported) 1700 Midodrine HCl (Midodrine HCl) 5 Mg Tablet, 5 MG PO BID, (Reported) Omeprazole (Omeprazole) 20 Mg Capsule.dr, 20 MG PO QPM, (Reported) 1700 Sennosides/Docusate Sodium (Docusate Sodium-Senna Tablet) 1 Each Tablet, 1 TAB PO BID, (Reported) Timolol Maleate (Timolol Maleate) 0.5 % Alix, 1 DROP OD BID, (Reported) Travoprost (Travatan Z) 50 Drop/2.5 Ml Soln, 1 DROP OD QHS, (Reported) Vit C/E/Zn/Coppr/Lutein/Zeaxan (Preservision Areds 2 Softgel) 1 Each Capsule, 1 EACH PO BID, (Reported) Scheduled PRN Acetaminophen (Acetaminophen) 325 Mg Tablet, 650 MG PO Q4H PRN for PAIN, (Reported) Bisacodyl (Bisacodyl) 10 Mg Supp.rect, 10 MG NV DAILY PRN for CONSTIPATION, (Reported) Milk Of Magnesia (Milk of Magnesia) 2,400 Mg/10 Ml Oral.susp, 30 ML PO DAILY PRN for CONSTIPATION, (Reported) Sodium Phosphate,[place]-Dibasic (Fleet Enema) 133 Ml Enema, 1 NATALIA NV DAILY PRN for CONSTIPATION, (Reported) Allergies Coded Allergies: Sulfa (Sulfonamide Antibiotics) (Verified Allergy, Unknown, 01/16/19) escitalopram (Verified Adverse Reaction, Unknown, 01/16/19) PT FROM [facility]- HAS BEEN ON ESCITALOPRAM, ALSO [facility] DOES NOT HAVE THIS LISTED AN ALLERGY Past Medical History Medical History 1. Chronic atrial fibrillation on Eliquis. 2. Coronary artery disease. 3. Bilateral carotid artery stenosis. 4. Dyslipidemia. 6. Hypertension. 7. Acid reflux. 8. Restless leg syndrome 9. Hx of Orthostatic hypotension 10. Hx of severe symptomatic hyponatremia 11. Hx of anemia secondary to GI bleed (12/2018) 12. Hx metabolic encephalopathy secondary to hyponatremia and dementia and delirium (12/2018) 13. Hx of suprasellar subarachnoid cyst, 14. BPH 15. constipation. 16. Hx of macular degeneration and glaucoma Surgical History 1. Cardiac stents. 2. EGD 12/2018 3. Colonoscopy 12/2018 Family History Significant Family History: Unable to assess (both parents many year ago) Social History * Smoker: former Smoker (quit many year ago. ) Alcohol: Denies Drugs: denies Lives at the [facility] Review of Systems Constitutional: Reports: Weakness, Fatigue, Lethargy Eyes: Reports: Vision change (hx of macular degeneration and glaucoma) Skin: Denies: Breakdown Pulmonary: Denies: Dyspnea Cardiovascular: Reports: Lt Headedness; Denies: Chest Pain Gastrointestinal: Reports: Nausea, Diarrhea (loose bowel movement); Denies: Vomiting, Abdominal Pain, Constipation Neurological: Reports: Weakness, Confusion (per daughter) Psych: Reports: Memory Issues; Denies: Anxiety, Depression Physical Examination General Exam: Positive: Cooperative, No Acute Distress Eye Exam: Positive: PERRLA, EOMI; Negative: Conjunctiva & lids normal (pale) ENT Exam: Positive: Atraumatic, Tongue Midline; Negative: Mucous membr. moist/pink Neck Exam: Positive: Supple; Negative: JVD, thyromegaly Chest Exam: Positive: Clear to auscultation, Other (prolonged capillary refill >3 seconds); Negative: Normal air movement (poor aeration due to lack of effort) Heart Exam: Positive: Bradycardic, Normal S1, Normal S2, Other (distant heart sounds) Telemetry: Positive: AV Block Abdomen Exam: Positive: Normal bowel sounds, Soft; Negative: Tenderness Extremity Exam: Negative: Clubbing, Edema, Tenderness Skin Exam: Negative: Nl turgor and temperature (dry with no tenting) Neuro Exam: Positive: Strength at 5/5 X4 ext; Negative: Normal Speech Vital Signs Vital Signs Date Time Temp Pulse Resp B/P (MAP) Pulse Ox O2 Delivery O2 Flow Rate FiO2 01/16/19 15:00 41 19 161/96 (124) 88 01/16/19 11:15 98.6 01/16/19 06:44 Room Air Laboratory Data Labs 24H Laboratory Tests 2 01/16/19 06:43: Immature Granulocyte % (Auto) 0.4, White Blood Count 6.8, Red Blood Count 3.59L, Hemoglobin 9.4L, Hematocrit 30.7L, Mean Corpuscular Volume 85.5, Mean Corpuscular Hemoglobin 26.2L, Mean Corpuscular Hemoglobin Concent 30.6L, Red Ngoc l Distribution Width 17.7H, Platelet Count 192, Neutrophils (%) (Auto) 70.2H, Lymphocytes (%) (Auto) 19.9L, Monocytes (%) (Auto) 7.8H, Eosinophils (%) (Auto) 1.6, Basophils (%) (Auto) 0.1, Neutrophils # (Auto) 4.8, Lymphocytes # (Auto) 1.4L, Monocytes # (Auto) 0.5, Eosinophils # (Auto) 0.1, Basophils # (Auto) 0.0, Nucleated Red Blood Cells % (auto) 0.0, Prothrombin Time 17.6H, Prothromb Time International Ratio 1.42, Activated Partial Thromboplast Time 43.4H, Anion Gap 6L, Glomerular Filtration Rate > 60.0, Calcium Level 7.4L, Aspartate Amino Transf (AST/SGOT) 5L, Alanine Aminotransferase (ALT/SGPT) 11L, Alkaline Phosphatase 72, Total Bilirubin 0.5, Direct Bilirubin 0.2, Total Creatine Kinase 48, Creatine Kinase MB 1.0, Creatine Kinase MB Relative Index 2.29, Troponin I 0.04, Total Protein 5.1L, Albumin 2.6L, Albumin/Globulin Ratio 1.04, Lipase 108, Thyroid Stimulating Hormone (TSH) 2.250, Free Thyroxine 1.06 01/16/19 11:38: Anion Gap 6L, Glomerular Filtration Rate > 60.0, Calcium Level 8.2L, Blood Urea Nitrogen 14, Creatinine 0.96, Sodium Level 143, Potassium Level 3.7, Chloride Level 113H, Carbon Dioxide Level 24 CBC/BMP Laboratory Tests 01/16/19 06:43 Red Blood Count 3.59 L, Mean Corpuscular Volume 85.5, Mean Corpuscular Hemoglobin 26.2 L, Mean Corpuscular Hemoglobin Concent 30.6 L, Red Cell Distribution Width 17.7 H, Neutrophils (%) (Auto) 70.2 H, Lymphocytes (%) (Auto) 19.9 L, Monocytes (%) (Auto) 7.8 H, Eosinophils (%) (Auto) 1.6, Basophils (%) (Auto) 0.1, Neutrophils # (Auto) 4.8, Lymphocytes # (Auto) 1.4 L, Monocytes # (Auto) 0.5, Eosinophils # (Auto) 0.1, Basophils # (Auto) 0.0 01/16/19 11:38 Calcium Level 8.2 L 01/16/19 14:54 Assessment/Plan Symptomatic bradycardia possibly secondary to complete heart block. -EKG shows : complete heart block. -not on beta cody. -Dr. Bose, pts telephone station repairer, and consulted. -continue with external pacer. -atropine 0.5mg q30min PRN for symptomatic bradycardia. -internal pacer in the AM with Dr. Salcido. NPO afterminight for procedure. -Hold home Eliquis Hypernatremia Hypovolemia -appears hypovolemic. - per history from daughter midodrine was recently started because he has low blood pressure and his amlodipine was stopped due to that -he did have recent bout of large lose BM, so can contribute to dehydration. -because he lives in the [facility]. Unsure if he has aduaqaute fluid intake. -gentle fluid hydration 50 D5, and will recheck BMP and adjuct accordingly. -will hold midodrine for now and will monitor if it needs to be restarted -fluids D5+1.2NS at 80cc/hr Hx of anemia secondary to GI bleed (12/2018) -Omeprazole 40mg qd. -currently on fluids Will repeat H/H at 2 pm -if normal will continue to monitor Hx of Hyperchloestermia and Coronary artery disease -c/w atorvastatin Chronic atrial fibrillation on Eliquis -Hold home Eliquis 5 mg twice a day -After procedure can consider restarting per cardiology's recommendations Acid reflux -Increased home omeprazole to 40 mg daily BPH -c/w Proscar Constipation -c/w Senokot and Dulcolax Hx of macular degeneration and glaucoma -c/w home ophthalmic solutions Hx of Orthostatic hypotension -will hold midodrine for now and will monitor if it needs to be restarted Hx of severe symptomatic hyponatremia (12/2018), Hx metabolic encephalopathy secondary to hyponatremia and dementia and delirium (12/2018) Hx of suprasellar subarachnoid cyst, Plan / VTE VTE Prophylaxis Ordered?: Yes (teds and sequentials) GME ATTESTATION GME ATTESTATION My faculty preceptor for this patient encounter was physically present during the encounter and was fully available. All aspects of the patient interview, examination, medical decision making process, and medical care plan development were reviewed and approved by the faculty preceptor. The faculty preceptor is aware and concurs with the plan as stated in the body of this note and will attest to such by his/her cosignature. ATTENDING NOTE I, Cong Abdul, have both independently examined this patient as well as reviewed the documentation. I have discussed in detail with the resident the findings and plan of treatment as documented in the residents documentation. I will continue to follow the patient and offer further guidance to the patients care as necessary during this hospital stay. ASTRID CABRERA DO Jan 16, 2019 16:40 CONG ABDUL MD Jan 16, 2019 17:33
[2019-01-16] MEDS: FLUDROCORTISONE ACETATE 0.1 MG TAB PO SCH (17:13)
[2019-01-16] MEDS: LATANOPROST 0.005% OPHTH SOLN 2.5 ML OD SCH (21:08)
[2019-01-16] MEDS: ATORVASTATIN 20 MG TAB PO SCH (21:09)
[2019-01-17] VITALS (25 sets, daily range): BP systolic 129–205; BP diastolic 63–113
[2019-01-17] MEDS ORDERED: ONDANSETRON 4MG/2ML VIAL (J2405) IV PRN (00:45)
[2019-01-17] MEDS: D5W/0.45% SODIUM CHLORIDE 1,000 ML IV SCH (03:33)
[2019-01-17 05:02] LABS: HEMATOCRIT 29.2 % (42.0-52.0); HEMOGLOBIN 9.3 g/dl (13.5-17.5); MEAN CORPUSCULAR HEMOGLOBIN 26.9 pg (27.0-33.0); MEAN CORPUSCULAR HGB CONC 31.8 g/dl (32.0-36.5); MEAN CORPUSCULAR VOLUME 84.4 fl (80.0-96.0); PLATELET COUNT, AUTOMATED 190 10^3/uL (150-450); RED BLOOD COUNT 3.46 10^6/uL (4.30-6.10); WHITE BLOOD COUNT 6.3 10^3/uL (4.0-10.0)
[2019-01-17 05:25] LABS: ALBUMIN 2.6 GM/DL (3.2-5.2); ALT/SGPT 10 U/L (12-78); BILIRUBIN,TOTAL 0.6 MG/DL (0.2-1.0); BLOOD UREA NITROGEN 12 MG/DL (7-18); CALCIUM LEVEL 7.7 MG/DL (8.8-10.2); CARBON DIOXIDE LEVEL 23 MEQ/L (21-32); CHLORIDE LEVEL 113 MEQ/L (98-107); CREATININE FOR GFR 0.91 MG/DL (0.70-1.30); GLOMERULAR FILTRATION RATE > 60.0 (>35); GLUCOSE, FASTING 101 MG/DL (70-100); MAGNESIUM LEVEL 2.1 MG/DL (1.8-2.4); POTASSIUM SERUM 3.6 MEQ/L (3.5-5.1); SODIUM LEVEL 143 MEQ/L (136-145); TOTAL PROTEIN 5.4 GM/DL (6.4-8.2)
--- NOTE | 2019-01-17 05:35 | CR ---
DATE OF CONSULTATION: 01/16/2019 INDICATION High degree arterioventricular (AV) block, near syncope. REFERRING PHYSICIAN: Dr. Kerns. HISTORY OF PRESENT ILLNESS: Mr. Guevaar is well known to me. He is a very pleasant 88-year-old man who recently has had fairly dramatic decline in his health status. He was recently hospitalized for hyponatremia, anemia and orthostatic hypotension. He was brought to emergency room by EMS after he had a near syncopal event this morning. He unfortunately has significant cognitive impairment and cannot provide good history but based on what we can put together he had this morning an urgency to have bowel movement that he managed to have and shortly thereafter became extremely dizzy and lightheaded. He managed to make it from the bathroom to his bed and called for help. On arrival of EMS he was found to be very bradycardic with heart rate in 30s and even though he was not hypotensive he has given atropine. The first ECG from the emergency room reveals sinus rhythm with high degree AV block and narrow QRS complex and heart rate 40 beats per minute. He was monitored in the emergency room for several hours without appreciable change. As long as he does not ambulate he is completely asymptomatic. The patient does have a history of paroxysmal atrial fibrillation even though to the best of my knowledge he did not have any truly recent episodes. He never had any bradycardic events before. PAST MEDICAL HISTORY: 1. Paroxysmal atrial fibrillation. 2. Coronary artery disease status post remote history of intervention to right and left circumflex arteries with bare metal stents. The last evaluation for ischemia was pharmacologic single proton emission computerized tomography (SPECT) in January 2018 that revealed normal ejection fraction and normal perfusion. 3. History of orthostatic hypotension that lately has been a dominant clinical problem. 4. Anemia. 5. Cognitive decline. 6. Hypercholesterolemia. 7. Benign prostatic hypertrophy (BPH). 8. Glaucoma. PAST SURGICAL HISTORY: 1. Transurethral resection of the prostate (TURP). 2. Left carotid endarterectomy and hernia repair. OUTPATIENT MEDICATIONS: - Apixaban 5 mg twice a day, last dose was taken yesterday evening - atorvastatin 20 mg a day - Lexapro 10 mg a day - iron sulfate 325 three times a day - finasteride 5 mg a day - fludrocortisone 0.1 mg daily - midodrine 5 mg twice a day - omeprazole 20 mg a day - Timolol eye drops - vitamins ALLERGIES: He is intolerant of SULFATES. FAMILY HISTORY: No longer relevant. No first-degree relatives with early coronary artery disease. SOCIAL HISTORY: The patient is a . He lives at [facility]. He used to smoke many years ago. No recent alcohol use. 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 REVIEW OF SYSTEMS: Unfortunately this is limited due to his cognitive impairment but it appeared that there has not been any chest pain. No true syncope, even though he has continues to have symptoms of orthostatic hypotension. No shortness of breath. No visible bleeding in the last several days. No nausea, vomiting other than the episode this morning. No peripheral edema. PHYSICAL EXAMINATION: Mr. Guevara is an elderly man who appears to be in good spirits laying in the intensive care unit (ICU) bed. Vital signs: When I saw him around noontime the documented blood pressure was 150/67 with heart rate around 48-50 beats per minute. He was afebrile. Saturation was 93% on room air. General: He was alert and oriented only times one. HEENT: Jugular venous pressure (JVP) is not elevated and no carotid bruit. Lungs: Clear. Heart: Exam reveals regular rhythm, which was quite bradycardic. I did not appreciate any gallop or murmur. Abdomen: Soft and nontender. No rebound tenderness. Extremities: Peripheral pulses are palpable. Neurological: There is no obvious neurologic focal deficit even though there is significant cognitive decline. The patient is unable to speak in fluent sentences and has trouble recalling events as recent as few hours ago. LABORATORY DATA: Basic metabolic panel is normal. Liver function tests are normal. Cardiac enzymes are normal. Albumin 2.6 and TSH 2.2 with free T4 1.1, INR is 1.4 and CBC reveals hemoglobin 9.4, hematocrit 30.7. ASSESSMENT/PLAN: Mr. Guevara is an 88-year-old man whose clinical picture recently as been dominated by fairly rapid and progressive cognitive decline and orthostatic hypotension. He also has a history of coronary artery disease and paroxysmal atrial fibrillation. He presented this morning after he suffered a near syncopal event with high degree arterioventricular (AV) block and significant bradycardia. He is on no medications that would be responsible and he does not have any history of similar events in past. Unfortunately I think it is very likely that he will continue to have similar problems and consequently placement of a permanent pacemaker seems clearly indicated. I already contacted Dr. Salcido who agreed to perform the placement. Because the patient took Eliquis last night it is his preference to wait at least 24 hours to reduce the risk of bleeding. I do believe that it is fully acceptable as the patient is hemodynamically stable and has narrow QRS complex without any significant pauses. He will be monitored in the intensive care unit (ICU) overnight. There will be bedside atropine and defibrillator patches will be applied to his chest. I do not believe that there is a necessity for temporary pacemaker placement. I spoke about the plan extensively with the patient's family and the patient himself. They agree with the proposed medical management. I am hoping that after the pacemaker is placed he will be able to be discharged the following day which is the typical clinical course. Dr. Cabrera covers call adi. NIKKI
[2019-01-17] MEDS ORDERED: BACITRACIN PWD 50,000 UNITS VIAL As Ordered ONE (07:06)
[2019-01-17] MEDS ORDERED: ISOVUE-300 61% 50ML VIAL (Q9967) As Ordered ONE (07:06)
[2019-01-17] MEDS ORDERED: LIDOCAINE 1% SDV INJ 30 ML VIAL As Ordered ONE (07:06)
[2019-01-17] MEDS ORDERED: AMIODARONE 150MG/3ML INJ (J0282) As Ordered ONE (07:06)
[2019-01-17] MEDS ORDERED: PROPOFOL 200 MG/20 ML VIAL As Ordered ONE (07:14)
[2019-01-17] MEDS ORDERED: MIDAZOLAM INJ 2 MG/2 ML VIAL (J2250) As Ordered ONE (07:14)
[2019-01-17] MEDS ORDERED: fentaNYL 100 MCG/2 ML INJECTION (J3010) As Ordered ONE (07:15)
[2019-01-17] MEDS ORDERED: LIDOCAINE 2% INJ 100 MG/5 ML SDV (FOR ANES.) As Ordered ONE (07:16)
[2019-01-17] MEDS ORDERED: ceFAZolin 2 GM/D5W 50 ML IV BAG (J0690 PER 500MG) As Ordered ONE (07:27)
--- NOTE | 2019-01-17 09:39 | REP ---
Portable chest x-ray: Single view. History: Status post pacemaker implant. Comparison study: January 16, 2019. Findings: Moderate cardiac enlargement is noted. Pacemaker has been inserted via the left side. Skin arleen are seen adjacent to the power plant. There is no evidence of pneumothorax or hydrothorax. Pulmonary vascular congestion and cephalization are seen however. Interstitial markings are prominent as before. Impression: Status post transvenous pacemaker insertion. Cardiomegaly and vascular cephalization. No evidence of pneumothorax. Electronically Signed by Taj Carroll MD 01/17/2019 06:31 P
--- NOTE | 2019-01-17 09:48 | RO ---
DATE OF PROCEDURE: 01/17/2019 PREPROCEDURE DIAGNOSES: 1. Complete heart block. 2. Paroxysmal atrial fibrillation. POSTPROCEDURE DIAGNOSES: 1. Complete heart block. 2. Paroxysmal atrial fibrillation. PROCEDURE: Implantation of permanent dual-chamber pacemaker. IMPLANTING TRASH MAN: Dr. Jsaon Salcido. ANESTHESIOLOGIST: Dr. Capps. ANESTHESIA: Monitored local anesthesia. CLINICAL SUMMARY: This 88-year-old resident of [facility] [place] in [place], has been followed by Dr. Juice chen for longstanding coronary artery disease with history of paroxysmal atrial fibrillation. He presented to our emergency room yesterday morning with near syncope and complete heart block with rates in the 30s. Presenting vital signs included some confusion with history of dementia. Heart rate of 42 beats per minute, blood pressure 167/99 supine, respiratory rate 16, O2 saturation 99% and he was afebrile. On examination, there was no sign of congestion. No audible heart murmur. Peripheral pulses were palpable. Soft, nontender abdomen. Blood work revealed a hemoglobin of 9.4 with normal white blood cell count. Red blood cell indices showed hypochromia and microcytic cells. Normal platelet count. On Eliquis oral anticoagulant therapy his PT/INR was 17.6/1.4 with PTT 43. Electrolytes were normal. BUN was 12, creatinine 0.9, random glucose was 81, albumin was low at 2.6 but other liver function studies were normal. CPK and troponin I levels were normal. Ultrasensitive TSH was normal. Portable semiupright chest x-ray taken in the emergency room reviewed independently shows at least borderline cardiomegaly with some calcification of the aortic arch but otherwise normal appearing pulmonary vasculature. Accentuated interstitial pulmonary markings. No localized infiltrate. EKG on showed underlying sinus mechanism with complete heart block. Escape ventricular activity was narrow with a rate averaging 44 bpm. Voltages were low with a leftward axis. Subtle nonspecific ST / T-wave abnormalities. Followup study at 2:00 p.m. yesterday showed no significant change. As the patient was receiving oral anticoagulant therapy, surgical intervention for his bradyarrhythmia was delayed for 24 hours. In the absence of potential reversible trigger for his AV block, we recommended as Dr. Bose suggested a permanent dual-chamber pacemaker implantation. This was discussed in detail with the patient's family who appeared to understand and agree. DESCRIPTION OF PROCEDURE: In the fasting state following informed consent and Ancef 2 grams IV premedication, the patient was taken to the operating theater. Numerous skin electrodes were applied to facilitate continuous electrocardiographic monitoring. Self-adhesive cardioverting/defibrillating pads were positioned in a anteroposterior configuration in light of his history of paroxysmal atrial fibrillation. These were connected to a bedside cardioverter defibrillator. The left subclavian region was prepped and draped in usual fashion. The skin over his left subclavian region was infiltrated with 1% Xylocaine. The left subclavian vein was catheterized using the micropuncture technique. A 5 cm linear incision was made several centimeters below and parallel to the left clavicle. Dissection was carried down to the level of the pectoralis fascia and the pocket was fashioned below the level of the incision line. Two bipolar screw-in active fixation steroid eluding pacing leads were then positioned to the right ventricular apex and high anterior right atrium under fluoroscopic and electrocardiographic control. The ventricular lead ([employer] model number [id number], serial number [id number]) measurements were: Stimulation threshold 0.7V/ 0.4 ms/impedance 561 ohms. The R wave amplitude measured 8.0 mV. The atrial lead ([employer] model number [id number], serial number [id number]) measurements were: Stimulation threshold 0.7 V/0.4 ms/impedance 454 ohms. The P wave amplitude measured 2.6 mV. These leads were secured in position with sleeves sutured at their insertion site. They were then connected to a permanent dual-chamber pulse generator ([employer] - Assurity MRI compatible, model number [id number], serial number [id number]) and appropriate DDD pacing was documented. The generator was placed. The pocket secured in position with a suture through the upper right-hand corner of the epoxy header. The subcutaneous tissues were approximated using a running Chromic suture and the skin was closed using arleen. Dry dressing were applied and the patient was returned to recovery room in good condition. Portable upright chest x-ray is pending at this time. His EKG confirms appropriate atrial sensing and tracking with consistent ventricular pacing. At this point, the patient will be returning to the progressive care unit and maintained on telemetry overnight. His Eliquis 2.5 mg p.o. b.i.d. will be resumed tomorrow morning. He will receive an additional three doses of Ancef 1 gram IV every 8 hours. From the standpoint of his pacemaker service, he will be able to be discharged tomorrow morning pending clearance of his general medical problems. He will be seeing me for a clinic visit - wound check and staple removal in 7-10 days and continued followup will be resumed by Dr. Bose, his primary finance effectiveness manager. No apparent complications. ESTIMATED BLOOD LOSS: 5 ml. MTDD
[2019-01-17] MEDS: FINASTERIDE 5 MG TAB PO SCH (10:20)
[2019-01-17] MEDS: SENOKOT S TAB PO SCH ×2 (10:20→21:03)
[2019-01-17] MEDS: OMEPRAZOLE 20 MG CAP PO SCH (10:20)
--- NOTE | 2019-01-17 10:25 | IPNPDOC ---
Date Seen The patient was seen on 01/17/19. Progress Note SUBJECTIVE: Patient is a 88-year-old male seen and examined this morning in the ICU bed with his daughter and son at bedside. Patient just returned back from his pacemaker placement by Dr. Salcido. The procedure was tolerated well according to the report. He has a [employer] dual-chamber ventricular pacemaker. He is advised to remain on bedrest for the next 24 hours the and telemetry until the a.m. and he can restart his Eliquis as well as in the a.m. He appears slightly groggy after the procedure was unable to answer questions appropriately. He does not appear in any acute distress and his telemetry read a heart rate of 60. No overnight events reported by nursing. Daughter states that the patient did not sleep well overnight in hopes that he'll sleep better tonight. OBJECTIVE PHYSICAL EXAMINATION: VITAL SIGNS: Please see below. GENERAL: Sweet 88-year-old elderly gentleman lying comfortably in his bed groggy s/p anesthesia HEENT: Atraumatic normocephalic CARDIOVASCULAR: Regular rate distant heart sounds RESPIRATORY: Clear to auscultate bilaterally ABDOMINAL: soft nontender EXTREMITIES: Soft nontender NEUROLOGICAL: Groggy s/p anesthesia not appropriately answering questions LABORATORY DATA, IMAGING STUDIES, MICROBIOLOGY: Please see below. DVT prophylaxis ordered?: DANYs & gogo ASSESSMENT AND PLAN: Symptomatic bradycardia possibly secondary to complete heart block s/p [employer] Antwan dual chamber pacer placement on 01/17/2019 -EKG in ER shows : complete heart block. -not on beta cody -Dr. Bose, pts principal biostatistician,consulted. -internal pacer in the AM with Dr. Salcido - Ancef 1 gram IV every 8 hours x 3 doses and f.u clinic visit for wound check and staple removal in 7-10 days. -Hold home Eliquis till the AM. Hx of Hyperchloestermia and Coronary artery disease -c/w atorvastatin Chronic atrial fibrillation on Eliquis -Hold home Eliquis 5 mg twice a day till the am, then restart Hx of Orthostatic hypotension -continue t hold midodrine for now -will monitor if it needs to be restarted Hx of Hypertension -Amlodipine at home was discontinued 2 weeks because of low blood pressure which is possible secondary to the complete heart block. -will monitor if pressure elevated in the AM, can consider restart Norvasc Acid reflux -Increased home omeprazole to 40 mg daily BPH -c/w Proscar Constipation -c/w Senokot and Dulcolax Hx of macular degeneration and glaucoma -c/w home ophthalmic solutions Hx of severe symptomatic hyponatremia (12/2018), Hx metabolic encephalopathy secondary to hyponatremia and dementia and delirium (12/2018) Hx of suprasellar subarachnoid cyst Hypernatremia Hypovolemia (Resolved) -improved with fluids D5+1.2NS Hx of anemia secondary to GI bleed (12/2018) -Omeprazole 40mg qd -will monitor VS, I&O, 24H, Fishbone Vital Signs/I&O Vital Signs Date Time Temp Pulse Resp B/P (MAP) Pulse Ox O2 Delivery O2 Flow Rate FiO2 01/17/19 09:18 97.9 66 16 160/74 (102) 89 01/17/19 08:55 3 01/16/19 06:44 Room Air I&O- Last 24 Hours up to 6 AM 01/17/19 06:00 Intake Total 1845 ml Output Total 600 ml Balance 1245 ml Laboratory Data 24H LABS Laboratory Tests 2 01/16/19 11:38: Anion Gap 6L, Glomerular Filtration Rate > 60.0, Blood Urea Nitrogen 14, Creatinine 0.96, Sodium Level 143, Potassium Level 3.7, Chloride Level 113H, Carbon Dioxide Level 24, Calcium Level 8.2L 01/17/19 04:14: Anion Gap 7L, Glomerular Filtration Rate > 60.0, Blood Urea Nitrogen 12, Creatinine 0.91, Sodium Level 143, Potassium Level 3.6, Chloride Level 113H, Carbon Dioxide Level 23, Calcium Level 7.7L, Nucleated Red Blood Cells % (auto) 0.0, Aspartate Amino Transf (AST/SGOT) 8, Alanine Aminotransferase (ALT/SGPT) 10L, Alkaline Phosphatase 76, Total Bilirubin 0.6, Total Protein 5.4L, Albumin 2.6L, Magnesium Level 2.1, Albumin/Globulin Ratio 0.93L CBC/BMP Laboratory Tests 01/16/19 11:38 Calcium Level 8.2 L 01/16/19 14:54 01/17/19 04:14 Calcium Level 7.7 L, Red Blood Count 3.46 L, Mean Corpuscular Volume 84.4, Mean Corpuscular Hemoglobin 26.9 L, Mean Corpuscular Hemoglobin Concent 31.8 L, Red Cell Distribution Width 17.4 H, Aspartate Amino Transf (AST/SGOT) 8, Alanine Aminotransferase (ALT/SGPT) 10 L, Alkaline Phosphatase 76, Total Bilirubin 0.6, Total Protein 5.4 L, Albumin 2.6 L GME ATTESTATION GME ATTESTATION My faculty preceptor for this patient encounter was physically present during the encounter and was fully available. All aspects of the patient interview, examination, medical decision making process, and medical care plan development were reviewed and approved by the faculty preceptor. The faculty preceptor is a fofana and concurs with the plan as stated in the body of this note and will attest to such by his/her cosignature. ATTENDING NOTE I, Cong Abdul, have both independently examined this patient as well as reviewed the documentation. I have discussed in detail with the resident the findings and plan of treatment as documented in the residents documentation. I will continue to follow the patient and offer further guidance to the patients care as necessary during this hospital stay. ASTRID CABRERA DO Jan 17, 2019 10:25 CONG ABDUL MD Jan 17, 2019 18:21
[2019-01-17] MEDS ORDERED: amLODIPine 10 MG TAB PO ONE (12:15)
[2019-01-17] MEDS ORDERED: hydrALAZINE INJ 20 MG/ML VIAL IV SCH (15:00)
--- NOTE | 2019-01-17 15:29 | ECGEPIP ---
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
[2019-01-17] MEDS: FLUDROCORTISONE ACETATE 0.1 MG TAB PO SCH (16:23)
[2019-01-17] MEDS: ceFAZolin SOD 1 GM in D5W MINI-BAG PLUS 50 ML IV SCH ×2 (16:23→23:24)
--- NOTE | 2019-01-17 20:34 | ECGEPIP ---
Stationary ECG Study 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 Left axis deviation. Nonspecific ST/T-wave abnormalities No significant change from earlier the same day. Electronically Signed On 01-17-2019 20:34:25 EDT by Jason Salcido
--- NOTE | 2019-01-17 20:42 | ECGEPIP ---
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 Pacing new from 01/16/19. Electronically Signed On 01-17-2019 20:42:53 EDT by Jason Salcido
[2019-01-17] MEDS: LATANOPROST 0.005% OPHTH SOLN 2.5 ML OD SCH (21:03)
[2019-01-17] MEDS: ATORVASTATIN 20 MG TAB PO SCH (21:03)
[2019-01-17] MEDS: **hydrALAZINE** 10 MG TAB PO SCH (21:04)
[2019-01-18] MEDS: **hydrALAZINE** 10 MG TAB PO SCH ×4 (02:46→21:00)
[2019-01-18 06:00] VITALS: BP 155/72
[2019-01-18 06:24] LABS: HEMATOCRIT 28.2 % (42.0-52.0); HEMOGLOBIN 9.1 g/dl (13.5-17.5); MEAN CORPUSCULAR HEMOGLOBIN 26.5 pg (27.0-33.0); MEAN CORPUSCULAR HGB CONC 32.3 g/dl (32.0-36.5); PLATELET COUNT, AUTOMATED 194 10^3/uL (150-450); RED BLOOD COUNT 3.44 10^6/uL (4.30-6.10); WHITE BLOOD COUNT 5.5 10^3/uL (4.0-10.0)
[2019-01-18 06:50] LABS: ALBUMIN 2.7 GM/DL (3.2-5.2); ALT/SGPT 12 U/L (12-78); BILIRUBIN,TOTAL 0.8 MG/DL (0.2-1.0); BLOOD UREA NITROGEN 9 MG/DL (7-18); CARBON DIOXIDE LEVEL 23 MEQ/L (21-32); CHLORIDE LEVEL 109 MEQ/L (98-107); CREATININE FOR GFR 0.78 MG/DL (0.70-1.30); GLOMERULAR FILTRATION RATE > 60.0 (>35); GLUCOSE, FASTING 85 MG/DL (70-100); MAGNESIUM LEVEL 1.9 MG/DL (1.8-2.4); POTASSIUM SERUM 3.4 MEQ/L (3.5-5.1); SODIUM LEVEL 139 MEQ/L (136-145); TOTAL PROTEIN 5.4 GM/DL (6.4-8.2)
[2019-01-18] MEDS ORDERED: POTASSIUM CHLORIDE 10 MEQ SR TABLET PO ONE (07:30)
--- NOTE | 2019-01-18 08:11 | IPN ---
DATE: 01/18/2019 Mr. Guevara had his pacemaker placed yesterday morning. I came to see him yesterday evening but he was completely confused and continues like that today. It is impossible to carry any conversation. He will answer very simple questions appropriately, but when he tries to construct sentences he gets immediately carried away and the sentences do not make any sense. He does not appear to be in any distress and denies any chest pain or shortness of breath. Vital signs: Blood pressure 155/72, heart rate has been in 70s. He is afebrile. Saturation 92%. Weight has not been recorded. His jugular venous pulse (JVP) is not up. Lungs sound reasonably clear. I do not appreciate any wheezing or crackles. Heart exam reveals regular rhythm. There is a paradoxically splitting second heart sound likely due to underlying ventricular pacing. Abdomen is soft, nontender. No peripheral edema. Laboratory grimaldo, basic metabolic panel is normal but for potassium 3.4 and CBC, hemoglobin 91, hematocrit 28 and platelet count 194,000. Chest x-ray that was performed yesterday reveals appropriate position of the leads. No evidence for congestive heart failure or pneumothorax. ASSESSMENT AND PLAN: Mr. Guevara is an 88-year-old man, who has a history of orthostatic hypotension, coronary artery disease and paroxysmal atrial fibrillation, who presents with high degree atrioventricular (AV) block and near-syncope, underwent permanent pacemaker placement yesterday. Unfortunately, his mental status is worrisome. He demonstrated dramatic mental decline over last several months and the etiology of which is not completely clear. He either already was seen by neurology or was scheduled to be seen by neurology, but I do recommend that they get involved at some point because the degree of decline seems to be out of proportion what I would expect from simple Alzheimer disease. From cardiac perspective though, I do not have much else to contribute.
[2019-01-18] MEDS: ceFAZolin SOD 1 GM in D5W MINI-BAG PLUS 50 ML IV SCH (10:03)
[2019-01-18] MEDS: SENOKOT S TAB PO SCH (10:03)
[2019-01-18] MEDS: OMEPRAZOLE 20 MG CAP PO SCH (10:03)
[2019-01-18] MEDS: FINASTERIDE 5 MG TAB PO SCH (10:04)
[2019-01-18] MEDS: FERROUS SULFATE 325MG TAB PO SCH (10:04)
[2019-01-18] MEDS: APIXABAN 2.5 MG TAB (ELIQUIS) PO SCH (10:05)
[2019-01-18] MEDS: amLODIPine 10 MG TAB PO SCH (10:06)
--- NOTE | 2019-01-18 11:07 | REP ---
Portable chest, 09:22 a.m., single AP sitting view: Comparisons are 01/17/2019, 01/16/2019 and 11/30/2018. There is a dual-chamber pacemaker entering from left, unchanged from 01/17/2019. Skin arleen are noted adjacent to the pacemaker generator. There is no pneumothorax. There is a left pleural effusion as an interval change. Cardiac size is enlarged, unchanged. There is atelectasis at the right lung base as an interval change. Impression: New left pleural effusion as a change from 01/17/2019. Electronically Signed by Kwame Jenkins MD 01/18/2019 10:58 A
[2019-01-18 14:00] VITALS: BP 153/69
--- NOTE | 2019-01-18 16:15 | IPNPDOC ---
Date Seen The patient was seen on 01/18/19. Progress Note SUBJECTIVE: Patient is a 88-year-old male seen and examined this morning and this afternoon. This morning he was C was incomprehensible was unable to answer questions appropriately. The sitter states that the patient did not sleep last night was redirectable but was very fidgety overnight. When we return later this afternoon the patient was able to answer questions with more appropriately after getting some sleep. He did request to have some sleeping supplements to help him sleep at night. The sitter at bedside states that the son reported the patient was unable to sleep the last couple of months at the [facility] for he currently sleeps with a roommate that yells and night. Blood pressures have been a little bit more controlled with current medications. OBJECTIVE PHYSICAL EXAMINATION: VITAL SIGNS: Please see below. GENERAL: Sweet 88-year-old elderly gentleman lying in bed in the morning was not appropriately answering questions alert and oriented 2 (not time) HEENT: Atraumatic normocephalic CARDIOVASCULAR: Regular rate distant heart sounds, bandage over pacemaker on left chest region RESPIRATORY: Clear to auscultate bilaterally ABDOMINAL: soft nontender EXTREMITIES: Soft nontender NEUROLOGICAL: Groggy s/p anesthesia not appropriately answering questions (improved after sleep during afternoon) LABORATORY DATA, IMAGING STUDIES, MICROBIOLOGY: Please see below. DVT prophylaxis ordered?: TEDs & sequentials ASSESSMENT AND PLAN: Symptomatic bradycardia possibly secondary to complete heart block s/p St[employer]twan dual chamber pacer placement on 01/17/2019 -EKG in ER shows : complete heart block. -Dr. Bose, pts machine slat basket maker,consulted. - f.u at Dr. Salcido's office for wound check and staple removal in 7-10 days. Confusion - likely 2/2 Delirium secondary to insomnia or Lewy Body Dementia -does have a Hx metabolic encephalopathy secondary to hyponatremia and dementia and delirium (12/2018) -Acute change with lack of sleep, surgery and setting. -with hx of orthostatic hypotension, dementia, insomnia need to consider lewy body dementia. -for his visual hallucinations and insomnia 2nd gen antiphysotics are tolerated better wit patient with lewy body dementia Chronic atrial fibrillation on Eliquis -stop home Eliquis 5 mg twice a day -because of history of anemia and age will start a reduced dose of eliquis 2.5 mg BID. Hx of Orthostatic hypotension -continue to hold midodrine for now -will monitor if it needs to be restarted Hx of Hypertension -Amlodipine at home was discontinued 2 weeks because of low blood pressure which is possible secondary to the complete heart block. -will monitor if pressure elevated in the AM, can consider restart Norvasc Acid reflux -Increased home omeprazole to 40 mg daily BPH -c/w Proscar Constipation -c/w Senokot and Dulcolax Hx of macular degeneration and glaucoma -c/w home ophthalmic solutions Hx of severe symptomatic hyponatremia (12/2018), Hx of suprasellar subarachnoid cyst Hypernatremia Hypovolemia (Resolved) -improved with fluids D5+1.2NS Hx of anemia secondary to GI bleed (12/2018) -Omeprazole 40mg qd -stable VS, I&O, 24H, Fishbone Vital Signs/I&O Vital Signs Date Time Temp Pulse Resp B/P (MAP) Pulse Ox O2 Delivery O2 Flow Rate FiO2 01/18/19 14:00 98.4 65 16 153/69 (97) 94 01/18/19 09:00 1.0 01/16/19 06:44 Room Air I&O- Last 24 Hours up to 6 AM 01/18/19 06:00 Intake Total 845 ml Output Total 1050 ml Balance -205 ml Laboratory Data 24H LABS Laboratory Tests 2 01/18/19 05:59: Nucleated Red Blood Cells % (auto) 0.0, Anion Gap 7L, Glomerular Filtration Rate > 60.0, Blood Urea Nitrogen 9, Creatinine 0.78, Sodium Level 139, Potassium Level 3.4L, Chloride Level 109H, Carbon Dioxide Level 23, Calcium Level 8.0L, Aspartate Amino Transf (AST/SGOT) 14, Alanine Aminotransferase (ALT/SGPT) 12, Alkaline Phosphatase 75, Total Bilirubin 0.8, Total Protein 5.4L, Albumin 2.7L, Magnesium Level 1.9, Albumin/Globulin Ratio 1.00 CBC/BMP Laboratory Tests 01/18/19 05:59 Red Blood Count 3.44 L, Mean Corpuscular Volume 82.0, Mean Corpuscular Hemoglobin 26.5 L, Mean Corpuscular Hemoglobin Concent 32.3, Red Cell Distribution Width 17.0 H, Calcium Level 8.0 L, Aspartate Amino Transf (AST/SGOT) 14, Alanine Aminotransferase (ALT/SGPT) 12, Alkaline Phosphatase 75, Total Bilirubin 0.8, Total Protein 5.4 L, Albumin 2.7 L GME ATTESTATION GME ATTESTATION My faculty preceptor for this patient encounter was physically present during the encounter and was fully available. All aspects of the patient interview, examination, medical decision making process, and medical care plan development were reviewed and approved by the faculty preceptor. The faculty preceptor is aware and concurs with the plan as stated in the body of this note and will attest to such by his/her cosignature. ATTENDING NOTE I, Cong Abdul, have both independently examined this patient as well as reviewed the documentation. I have discussed in detail with the resident the findings and plan of treatment as documented in the residents documentation. I will continue to follow the patient and offer further guidance to the patients care as necessary during this hospital stay. ASTRID CABRERA DO Jan 18, 2019 16:15 CONG ABDUL MD Jan 18, 2019 17:36
[2019-01-18] MEDS: FLUDROCORTISONE ACETATE 0.1 MG TAB PO SCH (16:56)
--- NOTE | 2019-01-18 16:58 | ECGEPIP ---
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 Electronically Signed On 01-18-2019 16:58:16 EDT by Jason Salcido
[2019-01-18] MEDS: QUEtiapine FUMARATE 25 MG TAB PO SCH (19:00)
[2019-01-18] MEDS ORDERED: hydrOXYzine 50 MG TAB PO SCH (21:00)
[2019-01-18 22:00] VITALS: BP 146/84
[2019-01-19] MEDS: ATORVASTATIN 20 MG TAB PO SCH ×2 (02:40→21:31)
[2019-01-19] MEDS: SENOKOT S TAB PO SCH ×3 (02:40→21:31)
[2019-01-19] MEDS: LATANOPROST 0.005% OPHTH SOLN 2.5 ML OD SCH ×2 (02:40→21:32)
[2019-01-19] MEDS: APIXABAN 2.5 MG TAB (ELIQUIS) PO SCH ×3 (02:41→21:31)
[2019-01-19] MEDS: **hydrALAZINE** 10 MG TAB PO SCH ×4 (02:41→21:32)
[2019-01-19 06:00] VITALS: BP 142/81
[2019-01-19 06:37] LABS: HEMATOCRIT 30.1 % (42.0-52.0); HEMOGLOBIN 9.6 g/dl (13.5-17.5); MEAN CORPUSCULAR HEMOGLOBIN 26.6 pg (27.0-33.0); MEAN CORPUSCULAR HGB CONC 31.9 g/dl (32.0-36.5); MEAN CORPUSCULAR VOLUME 83.4 fl (80.0-96.0); PLATELET COUNT, AUTOMATED 196 10^3/uL (150-450); RED BLOOD COUNT 3.61 10^6/uL (4.30-6.10); WHITE BLOOD COUNT 5.1 10^3/uL (4.0-10.0)
[2019-01-19 07:07] LABS: ALBUMIN 2.7 GM/DL (3.2-5.2); ALT/SGPT 9 U/L (12-78); BILIRUBIN,TOTAL 0.8 MG/DL (0.2-1.0); BLOOD UREA NITROGEN 9 MG/DL (7-18); CALCIUM LEVEL 8.3 MG/DL (8.8-10.2); CARBON DIOXIDE LEVEL 22 MEQ/L (21-32); CHLORIDE LEVEL 111 MEQ/L (98-107); CREATININE FOR GFR 0.74 MG/DL (0.70-1.30); GLOMERULAR FILTRATION RATE > 60.0 (>35); GLUCOSE, FASTING 74 MG/DL (70-100); MAGNESIUM LEVEL 2.1 MG/DL (1.8-2.4); POTASSIUM SERUM 3.5 MEQ/L (3.5-5.1); SODIUM LEVEL 143 MEQ/L (136-145); TOTAL PROTEIN 5.5 GM/DL (6.4-8.2)
[2019-01-19] MEDS: FINASTERIDE 5 MG TAB PO SCH (08:38)
[2019-01-19] MEDS: OMEPRAZOLE 20 MG CAP PO SCH (08:39)
[2019-01-19] MEDS: amLODIPine 10 MG TAB PO SCH (08:39)
--- NOTE | 2019-01-19 11:57 | IPNPDOC ---
Date Seen The patient was seen on 01/19/19. Progress Note SUBJECTIVE: Patient is a 88-year-old male seen and examined this morning. Overnight the patient did sleep and this morning the patient was a little bit more coherent when answering questions even though they're not correct. He believes that he is in [place] in a restaurant and "the day prior he was at a golf course in a little town over with a young lady". He believes there are 3 people in the room and he is very tangential in his speech. Per nursing and they noticed when they were trying to ambulate him to the commode he does have a slight shuffling gait. No other overnight events were reported. OBJECTIVE PHYSICAL EXAMINATION: VITAL SIGNS: Please see below. GENERAL: Sweet 88-year-old elderly gentleman lying in bed in the morning was not appropriately answering questions alert and not oriented 2 (is oriented to self only) HEENT: Atraumatic normocephalic CARDIOVASCULAR: Regular rate distant heart sounds, bandage over pacemaker on left chest region RESPIRATORY: Clear to auscultate bilaterally ABDOMINAL: soft nontender EXTREMITIES: Soft nontender NEUROLOGICAL: Coherent but not oriented to place or time. Resting tremor in the upper extermity, shuffling gait, and slow speech LABORATORY DATA, IMAGING STUDIES, MICROBIOLOGY: Please see below. DVT prophylaxis ordered?: TEDs & sequentials ASSESSMENT AND PLAN: Secondary to complete heart block s/p [employer] dual chamber pacer placement on 01/17/2019 -EKG in ER shows : complete heart block. -Dr. Bose, pts green end man,consulted. - f.u at Dr. Salcido's office for wound check and staple removal in 7-10 days. Confusion - likely 2/2 Delirium secondary insomnia and dementia 2/2 Lewy Body Dementia -does have a Hx metabolic encephalopathy secondary to hyponatremia and dementia and delirium (12/2018) -Acute change with lack of sleep, surgery and setting -reported in the past year there was a dramatic change in cognitive function,hx of orthostatic hypotension, insomnia -exam consistent with resting tremor and shuffling gait -for his visual hallucinations and insomnia; started Seroquel QHS PRN Chronic atrial fibrillation on Eliquis -stop home Eliquis 5 mg twice a day -because of history of anemia and age will start a reduced dose of eliquis 2.5 mg BID. Hx of Orthostatic hypotension -continue to hold midodrine for now -will monitor if it needs to be restarted Hx of Hypertension -Amlodipine at home was discontinued 2 weeks because of low blood pressure which is possible secondary to the complete heart block. -will monitor if pressure elevated in the AM, can consider restart Norvasc Acid reflux -Increased home omeprazole to 40 mg daily BPH -c/w Proscar Constipation -c/w Senokot and Dulcolax Hx of macular degeneration and glaucoma -c/w home ophthalmic solutions Hx of severe symptomatic hyponatremia (12/2018), Hx of suprasellar subarachnoid cyst Hypernatremia Hypovolemia (Resolved) -improved with fluids D5+1.2NS Hx of anemia secondary to GI bleed (12/2018) -Omeprazole 40mg qd -stable VS, I&O, 24H, Fishbone Vital Signs/I&O Vital Signs Date Time Temp Pulse Resp B/P (MAP) Pulse Ox O2 Delivery O2 Flow Rate FiO2 01/19/19 08:38 148/70 01/19/19 06:00 97.1 61 18 94 01/18/19 22:00 1.0 01/16/19 06:44 Room Air I&O- Last 24 Hours up to 6 AM 01/19/19 06:00 Intake Total 1940 ml Output Total 850 ml Balance 1090 ml Laboratory Data 24H LABS Laboratory Tests 2 01/19/19 05:53: Nucleated Red Blood Cells % (auto) 0.0, Anion Gap 10, Glomerular Filtration Rate > 60.0, Blood Urea Nitrogen 9, Creatinine 0.74, Sodium Level 143, Potassium Level 3.5, Chloride Level 111H, Carbon Dioxide Level 22, Calcium Level 8.3L, Aspartate Amino Transf (AST/SGOT) 14, Alanine Aminotransferase (ALT/SGPT) 9L, Alkaline Phosphatase 75, Total Bilirubin 0.8, Total Protein 5.5L, Albumin 2.7L, Magnesium Level 2.1, Albumin/Globulin Ratio 0.96L CBC/BMP Laboratory Tests 01/19/19 05:53 Red Blood Count 3.61 L, Mean Corpuscular Volume 83.4, Mean Corpuscular Hemoglobin 26.6 L, Mean Corpuscular Hemoglobin Concent 31.9 L, Red Cell Distribution Width 16.9 H, Calcium Level 8.3 L, Aspartate Amino Transf (AST/SGOT) 14, Alanine Aminotransferase (ALT/SGPT) 9 L, Alkaline Phosphatase 75, Total Bilirubin 0.8, Total Protein 5.5 L, Albumin 2.7 L GME ATTESTATION GME ATTESTATION My faculty preceptor for this patient encounter was physically present during the encounter and was fully available. All aspects of the patient interview, examination, medical decision making process, and medical care plan development were reviewed and approved by the faculty preceptor. The faculty preceptor is aware and concurs with the plan as stated in the body of this note and will attest to such by his/her cosignature. ATTENDING NOTE I, Cong Abdul, have both independently examined this patient as well as reviewed the documentation. I have discussed in detail with the resident the findings and plan of treatment as documented in the residents documentation. I will continue to follow the patient and offer further guidance to the patients care as necessary during this hospital stay. ASTRID CABRERA DO Jan 19, 2019 11:57 CONG ABDUL MD Jan 19, 2019 17:24
[2019-01-19 14:00] VITALS: BP 132/72
[2019-01-19] MEDS: FLUDROCORTISONE ACETATE 0.1 MG TAB PO SCH (16:21)
[2019-01-19] MEDS ORDERED: HALOPERIDOL 0.5 MG TAB PO SCH (18:00)
[2019-01-19] MEDS: QUEtiapine FUMARATE 25 MG TAB PO SCH (18:00)
[2019-01-19 22:00] VITALS: BP 147/80
[2019-01-20] MEDS: **hydrALAZINE** 10 MG TAB PO SCH ×2 (03:26→09:10)
[2019-01-20 06:00] VITALS: BP 142/66
[2019-01-20 06:35] LABS: HEMATOCRIT 29.3 % (42.0-52.0); HEMOGLOBIN 9.3 g/dl (13.5-17.5); MEAN CORPUSCULAR HEMOGLOBIN 26.1 pg (27.0-33.0); MEAN CORPUSCULAR HGB CONC 31.7 g/dl (32.0-36.5); MEAN CORPUSCULAR VOLUME 82.3 fl (80.0-96.0); PLATELET COUNT, AUTOMATED 200 10^3/uL (150-450); RED BLOOD COUNT 3.56 10^6/uL (4.30-6.10); WHITE BLOOD COUNT 5.1 10^3/uL (4.0-10.0)
[2019-01-20 07:02] LABS: ALBUMIN 2.6 GM/DL (3.2-5.2); ALT/SGPT 11 U/L (12-78); BILIRUBIN,TOTAL 0.5 MG/DL (0.2-1.0); BLOOD UREA NITROGEN 11 MG/DL (7-18); CARBON DIOXIDE LEVEL 24 MEQ/L (21-32); CHLORIDE LEVEL 110 MEQ/L (98-107); CREATININE FOR GFR 0.74 MG/DL (0.70-1.30); GLOMERULAR FILTRATION RATE > 60.0 (>35); GLUCOSE, FASTING 74 MG/DL (70-100); POTASSIUM SERUM 3.5 MEQ/L (3.5-5.1); SODIUM LEVEL 142 MEQ/L (136-145); TOTAL PROTEIN 5.2 GM/DL (6.4-8.2)
[2019-01-20] MEDS: SENOKOT S TAB PO SCH ×2 (09:09→21:12)
[2019-01-20] MEDS: APIXABAN 2.5 MG TAB (ELIQUIS) PO SCH ×2 (09:09→21:12)
[2019-01-20] MEDS: FINASTERIDE 5 MG TAB PO SCH (09:09)
[2019-01-20] MEDS: OMEPRAZOLE 20 MG CAP PO SCH (09:09)
[2019-01-20] MEDS: amLODIPine 10 MG TAB PO SCH (09:10)
--- NOTE | 2019-01-20 12:54 | IPNPDOC ---
Text Note Date of Service The patient was seen on 01/20/19. NOTE Subjective: Patient is an 88-year-old male with a PMHx of Progressive dementia, A. fib (on Eliqus), CAD, Orthostatic hypotension (on Midodrine), B/L Carotid artery stenosis, HTN, DLP, RLS, BPH, GERD who presented to the ER after he was found to be bradycardic at [facility]. In emergency room, patient was found to be in complete heart block and eventually went for pacemaker placement with Dr. Salcido on 01/17/2019. Patient has tolerated the procedure well. His hospital course was complicated delirium on dementia. Patient was seen and examined at the bedside. Currently, patient appears to be oriented to person, place and time. He is confused as to the reason he is in the hospital. He denies any chest pain, shortness of breath or palpitations. Denies any nausea, vomiting. Denies any abdominal pain. Denies any constipation, diarrhea or any urinary discomfort. Objective: Vitals (See below) General: Lying in bed, no acute distress, comfortable, Awake / Alert HEENT: NC, AT CVS: +S1S2 Lungs: Fair air entry b/l, -w/r/r Abdomen: Soft, ND, NT Extremities: - Edema, - Calf tenderness Assessment and plan: Complete heart block s/p Dual chamber pacer placement (01/17/2019) - EKG on admission reveals complete heart block - Cardiology, Dr. Bose has been on consult - Has had procedure performed by Dr. Salcido Confusion - likely 2/2 Delirium - likely 2/2 Insomnia and dementia 2/2 Lewy Body Dementia - Does have a Hx metabolic encephalopathy secondary to hyponatremia and dementia and delirium (12/2018) - Acute change with lack of sleep, surgery and setting - Reported in the past year there was a dramatic change in cognitive function, hx of orthostatic hypotension, insomnia - Exam consistent with resting tremor and shuffling gait - Will c/w Seroquel Chronic atrial fibrillation - c/w Eliquis at adjusted dose as per Cardiology Hx of Orthostatic hypotension - Will continue to follow orthostatic signs / symptoms - s/p Midodrine - Will DC Hydralazine Hx of HTN - c/w Amlodipine - Will DC Hydralazine; Will start Lisinopril BID BPH - c/w Finasteride Constipation - c/w Bowel regimen as ordered Hx of macular degeneration and glaucoma - c/w home ophthalmic solutions Hx of severe symptomatic hyponatremia (12/2018), Hx of suprasellar subarachnoid cyst s/p Hypernatremia Hx of anemia secondary to GI bleed (12/2018) GERD - c/w Omeprazole DVT prophylaxis - c/w full anticoagulation with Eliquis Disposition: - Anticipate transition to [facility] tomorrow VS,Fishbone, I+O VS, Fishbone, I+O Laboratory Tests 01/20/19 05:33 Red Blood Count 3.56 L, Mean Corpuscular Volume 82.3, Mean Corpuscular Hemoglobin 26.1 L, Mean Corpuscular Hemoglobin Concent 31.7 L, Red Cell Distribution Width 16.7 H, Calcium Level 8.0 L, Aspartate Amino Transf (AST/SGOT) 13, Alanine Aminotransferase (ALT/SGPT) 11 L, Alkaline Phosphatase 70, Total Bilirubin 0.5, Total Protein 5.2 L, Albumin 2.6 L Vital Signs Date Time Temp Pulse Resp B/P (MAP) Pulse Ox O2 Delivery O2 Flow Rate FiO2 01/20/19 09:10 148/65 01/20/19 06:00 98.9 69 20 93 01/18/19 22:00 1.0 01/16/19 06:44 Room Air I&O- Last 24 Hours up to 6 AM 01/20/19 06:00 Intake Total 650 ml Output Total 650 ml Balance 0 ml ARNEL FOX MD Jan 20, 2019 12:54
[2019-01-20 14:00] VITALS: BP 115/58
[2019-01-20] MEDS: FLUDROCORTISONE ACETATE 0.1 MG TAB PO SCH (16:20)
[2019-01-20] MEDS: QUEtiapine FUMARATE 25 MG TAB PO SCH (18:23)
[2019-01-20] MEDS: LISINOPRIL 5 MG TAB PO SCH (21:11)
[2019-01-20] MEDS: ATORVASTATIN 20 MG TAB PO SCH (21:12)
[2019-01-20] MEDS: LATANOPROST 0.005% OPHTH SOLN 2.5 ML OD SCH (21:12)
[2019-01-20 22:00] VITALS: BP 170/78
[2019-01-21 05:53] LABS: HEMATOCRIT 29.8 % (42.0-52.0); HEMOGLOBIN 9.4 g/dl (13.5-17.5); MEAN CORPUSCULAR HEMOGLOBIN 26.1 pg (27.0-33.0); MEAN CORPUSCULAR HGB CONC 31.5 g/dl (32.0-36.5); MEAN CORPUSCULAR VOLUME 82.8 fl (80.0-96.0); PLATELET COUNT, AUTOMATED 213 10^3/uL (150-450); WHITE BLOOD COUNT 4.6 10^3/uL (4.0-10.0)
[2019-01-21 06:00] VITALS: BP 155/79
[2019-01-21 06:19] LABS: ALBUMIN 2.5 GM/DL (3.2-5.2); ALT/SGPT 11 U/L (12-78); BILIRUBIN,TOTAL 0.5 MG/DL (0.2-1.0); BLOOD UREA NITROGEN 13 MG/DL (7-18); CALCIUM LEVEL 8.2 MG/DL (8.8-10.2); CARBON DIOXIDE LEVEL 25 MEQ/L (21-32); CHLORIDE LEVEL 111 MEQ/L (98-107); CREATININE FOR GFR 0.83 MG/DL (0.70-1.30); GLOMERULAR FILTRATION RATE > 60.0 (>35); GLUCOSE, FASTING 95 MG/DL (70-100); MAGNESIUM LEVEL 2.1 MG/DL (1.8-2.4); POTASSIUM SERUM 3.5 MEQ/L (3.5-5.1); SODIUM LEVEL 142 MEQ/L (136-145); TOTAL PROTEIN 5.3 GM/DL (6.4-8.2)
[2019-01-21] MEDS: OMEPRAZOLE 20 MG CAP PO SCH (07:55)
[2019-01-21] MEDS: SENOKOT S TAB PO SCH (07:55)
[2019-01-21] MEDS: APIXABAN 2.5 MG TAB (ELIQUIS) PO SCH (07:55)
[2019-01-21] MEDS: FINASTERIDE 5 MG TAB PO SCH (07:55)
[2019-01-21 07:56] VITALS: BP 155/79
[2019-01-21] MEDS: LISINOPRIL 5 MG TAB PO SCH (07:56)
[2019-01-21] MEDS: amLODIPine 10 MG TAB PO SCH (07:57)
[2019-01-21] MEDS: FERROUS SULFATE 325MG TAB PO SCH (07:57)
[2019-01-21] MEDS ORDERED: QUET1TAB7 PO (09:42)
[2019-01-21] MEDS ORDERED: ELIQ2.5T PO (09:45)
--- NOTE | 2019-01-21 11:10 | DS.PDOC ---
Discharge Summary General Date of Admission Jan 16, 2019 at 09:25 Date of Discharge 01/21/2019 Primary Care Physician: Asda Gill Discharge Summary PROCEDURES PERFORMED DURING STAY: s/p Dual chamber pacer placement (01/17/2019) - Dr. Salcido ADMITTING DIAGNOSES: Symptomatic bradycardia possibly secondary to complete heart block. Hypernatremia Hypovolemia Hx of anemia secondary to GI bleed (12/2018) Hx of Hyperchloestermia and Coronary artery disease Chronic atrial fibrillation on Eliquis Acid reflux BPH Constipation Hx of macular degeneration and glaucoma Hx of Orthostatic hypotension Hx of severe symptomatic hyponatremia (12/2018), Hx metabolic encephalopathy secondary to hyponatremia and dementia and delirium (12/2018) Hx of suprasellar subarachnoid cyst, DISCHARGE DIAGNOSES: Complete heart block s/p Dual chamber pacer placement (01/17/2019) Confusion - likely 2/2 Delirium - likely 2/2 Insomnia and dementia 2/2 Lewy Body Dementia Chronic atrial fibrillation Hx of Orthostatic hypotension Hx of HTN BPH Constipation Hx of macular degeneration and glaucoma Hx of severe symptomatic hyponatremia (12/2018), Hx of suprasellar subarachnoid cyst s/p Hypernatremia Hx of anemia secondary to GI bleed (12/2018) GERD COMPLICATIONS/CHIEF COMPLAINT: Heart Block Atrioventricular Symptomatic Bradycardia HISTORY OF PRESENT ILLNESS: The patient is an 88-year-old white male with a pertinent past medical history of A. fib on Eliquis but not on beta cody, who presented to the ER via EMS early this morning from [facility] for bradycardia. The patient is not the best historian, and lot of the information was supplemented by his daughter in bedside. He states when presented to the ER, he has been experience nausea, extreme fatigue. He states that he had a near syncope event earlier this morning after a really large bowel movement. He is unable to state if the bowl movement was bloody or lose. He does state that he felt very weak and was having a hard time getting back to bed. When he requested assistance his attendant if vitals were taking which showed that his heart rate was in the low 40s and we was then sent the ER for further evaluation. He denies sob, chest pain, and loc. Patient reports that he has light headed episodes every Monday but daughter denies any previous reports. Daughter states that ~10 days ago the patient had been experiencing low blood pressure and his hypertensive medication were discontinued. He has had labs drawn which were stable and he was started on midodrine. The daughter was unable to remember how low his pressure went. Daughter also admits the last Eliquis 5mg dose was the night prior to presentation. In the ER, pacer pads were placed and bedside EKG showed vent rate of 44bpm and av dissociation consistent with possible high grade AV lynne block. The case was discussed with his informatica mdm developer, Dr. Bose, and who recommended the patient to admitted for pacemaker placement, by Dr. Salcido. HOSPITAL COURSE: Patient was admitted to hospital service. Cardiology was consulted. He had a dual-chamber pacemaker placed on January [address] Salcido. He tolerated the procedure well. While he is admitted he did have some delirium on his underlying dementia. He did have some tangential speech and some visual hallucination 24-48 hours after the procedure. It was also noted that he had a resting tremor as well as a shuffling gait when ambulating as well as a shuffling turn. With his history of orthostatic hypotension and dementia is possible that he has a Lewy body dementia and he started on Seroquel 25 mg at night. His Eliquis dose was reduced from 5 mg twice a day to 2.5 mg twice a day because he is an elderly patient with a history of anemia and we stopped his home Lexapro. No other adjustments were made on his home medications. He is to follow-up with primary care providers office to 10 days, Dr. Marcus office in 2-3 weeks, and follow- up with Dr. Salcido will check and staple removal in 3-6 days. DISCHARGE MEDICATIONS: Please see below. ALLERGIES: Please see below. PHYSICAL EXAMINATION ON DISCHARGE: VITAL SIGNS: Please see below. GENERAL: Sweet 88-year-old elderly gentleman lying in bed in the morning was not appropriately answering questions alert and not oriented 2 (is oriented to self only) HEENT: Atraumatic normocephalic CARDIOVASCULAR: Regular rate distant heart sounds, bandage over pacemaker on left chest region RESPIRATORY: Clear to auscultate bilaterally ABDOMINAL: soft nontender EXTREMITIES: Soft nontender NEUROLOGICAL: Coherent but not oriented to place or time. Resting tremor in the upper extermity, shuffling gait and turn, and slow speech LABORATORY DATA: Please see below. IMAGIN01/16/2019 Chest x-ray Impression: Bilateral lower lung field interstitial coarsening. Tiny left pleural effusion. 01/17/2019 Chest x-ray Impression: Status post transvenous pacemaker insertion. Cardiomegaly and vascular cephalization. No evidence of pneumothorax. 01/18/2019 Chest x-ray Impression: New left pleural effusion as a change from 01/17/2019. PROGNOSIS: Fair ACTIVITY: [As tolerated]. DIET: Low-fat low-cholesterol DISPOSITION: SSV DISCHARGE INSTRUCTIONS: 1. Follow-up with primary care provider 7-10 days 2. Follow-up with Dr. Salcido's office for first wound check and staple removal in 3-6 days. 3. Follow-up with Dr. Bose office in 2-3 weeks 4. Stopped Eliquis 5 mg twice a day and Lexapro 10 mg Daily 5. Start Eliquis 2.5 mg twice a day and Seroquel 25 mg daily. 6. If symptoms return or worsen please call your PCP and/or return to the ER. DISCHARGE CONDITION: Stable. TIME SPENT ON DISCHARGE: Greater than 35 minutes. Vital Signs/I&Os Vital Signs Date Time Temp Pulse Resp B/P (MAP) Pulse Ox O2 Delivery O2 Flow Rate FiO2 01/21/19 07:56 155/79 01/21/19 06:00 97.5 69 18 92 01/18/19 22:00 1.0 01/16/19 06:44 Room Air I&O- Last 24 Hours up to 6 AM 01/21/19 06:00 Intake Total 580 ml Output Total 350 ml Balance 230 ml Laboratory Data Labs 24H Laboratory Tests 2 01/20/19 20:07: Bedside Glucose (Misc Panel) 96 01/21/19 05:19: Nucleated Red Blood Cells % (auto) 0.0, Anion Gap 6L, Glomerular Filtration Rate > 60.0, Blood Urea Nitrogen 13, Creatinine 0.83, Sodium Level 142, Potassium Level 3.5, Chloride Level 111H, Carbon Dioxide Level 25, Calcium Level 8.2L, Aspartate Amino Transf (AST/SGOT) 14, Alanine Aminotransferase (ALT/SGPT) 11L, Alkaline Phosphatase 58, Total Bilirubin 0.5, Total Protein 5.3L, Albumin 2.5L, Magnesium Level 2.1, Albumin/Globulin Ratio 0.89L CBC/BMP Laboratory Tests 01/21/19 05:19 Red Blood Count 3.60 L, Mean Corpuscular Volume 82.8, Mean Corpuscular Hemoglobin 26.1 L, Mean Corpuscular Hemoglobin Concent 31.5 L, Red Cell Distribution Width 16.7 H, Calcium Level 8.2 L, Aspartate Amino Transf (AST/SGOT) 14, Alanine Aminotransferase (ALT/SGPT) 11 L, Alkaline Phosphatase 58, Total Bilirubin 0.5, Total Protein 5.3 L, Albumin 2.5 L FSBS Laboratory Tests Test 01/20/19 20:07 Range/Units Bedside Glucose (Misc Panel) 96 83-110 MG/DL Discharge Medications Scheduled Apixaban (Eliquis) 2.5 Mg Tablet, 2.5 MG PO BID Atorvastatin Calcium (Atorvastatin Calcium) 20 Mg Tablet, 20 MG PO QHS, (Reported) Ferrous Sulfate (Ferrous Sulfate) 325 Mg Tablet.dr, 325 MG PO 3XW, (Reported) MON,WED,FRI Finasteride (Finasteride) 5 Mg Tab, 5 MG PO DAILY, (Reported) Fludrocortisone Acetate (Fludrocortisone Acetate) 0.1 Mg Tablet, 0.1 MG PO QPM, (Reported) 1700 Midodrine HCl (Midodrine HCl) 5 Mg Tablet, 5 MG PO BID, (Reported) Omeprazole (Omeprazole) 20 Mg Capsule.dr, 20 MG PO QPM, (Reported) 1700 Quetiapine Fumarate (Quetiapine Fumarate) 25 Mg Tablet, 25 MG PO DAILY@1900 Sennosides/Docusate Sodium (Docusate Sodium-Senna Tablet) 1 Each Tablet, 1 TAB PO BID, (Reported) Timolol Maleate (Timolol Maleate) 0.5 % Alix, 1 DROP OD BID, (Reported) Travoprost (Travatan Z) 50 Drop/2.5 Ml Soln, 1 DROP OD QHS, (Reported) Vit C/E/Zn/Coppr/Lutein/Zeaxan (Preservision Areds 2 Softgel) 1 Each Capsule, 1 EACH PO BID, (Reported) Scheduled PRN Acetaminophen (Acetaminophen) 325 Mg Tablet, 650 MG PO Q4H PRN for PAIN, (Reported) Bisacodyl (Bisacodyl) 10 Mg Supp.rect, 10 MG OR DAILY PRN for CONSTIPATION, (Reported) Milk Of Magnesia (Milk of Magnesia) 2,400 Mg/10 Ml Oral.susp, 30 ML PO DAILY PRN for CONSTIPATION, (Reported) Sodium Phosphate,[place]-Dibasic (Fleet Enema) 133 Ml Enema, 1 NATALIA OR DAILY PRN for CONSTIPATION, (Reported) Allergies Coded Allergies: Sulfa (Sulfonamide Antibiotics) (Verified Allergy, Unknown, 01/16/19) escitalopram (Verified Adverse Reaction, Unknown, 01/16/19) PT FROM [facility]- HAS BEEN ON ESCITALOPRAM, ALSO [facility] DOES NOT HAVE THIS LISTED AN ALLERGY GME ATTESTATION GME ATTESTATION My faculty preceptor for this patient encounter was physically present during the encounter and was fully available. All aspects of the patient interview, examination, medical decision making process, and medical care plan development were reviewed and approved by the faculty preceptor. The faculty preceptor is aware and concurs with the plan as stated in the body of this note and will attest to such by his/her cosignature. ATTENDING NOTE I, Cong Abdul, have both independently examined this patient as well as reviewed the documentation. I have discussed in detail with the resident the findings and plan of treatment as documented in the residents documentation. I will continue to follow the patient and offer further guidance to the patients care as necessary during this hospital stay. ASTRID CABRERA DO Jan 21, 2019 11:10 CONG ABDUL MD Jan 21, 2019 15:08
== END 2019-01-21 13:24 | DRG 243 ==
LOC: M ED 06:35 → M ED INP 09:25 → M ICU 11:19 → M MSPAV 01-17 21:39
PROVIDERS: ADMIT Internal Medicine; ATTEND Internal Medicine
PROC: 02H63JZ Insertion of Pacemaker Lead into Right Atrium, Percutaneous Approach (ICD-10-PCS; 2019-01-17)
PROC: 02HK3JZ Insertion of Pacemaker Lead into Right Ventricle, Percutaneous Approach (ICD-10-PCS; 2019-01-17)
PROC: 0JH606Z Insertion of Pacemaker, Dual Chamber into Chest Subcutaneous Tissue and Fascia, Open Approach (ICD-10-PCS; principal; 2019-01-17 07:30)
DX: I44.2 Atrioventricular block, complete (principal); E87.1 Hypo-osmolality and hyponatremia; I48.2 Chronic atrial fibrillation; I25.10 Atherosclerotic heart disease of native coronary artery without angina pectoris; Z95.5 Presence of coronary angioplasty implant and graft; I95.1 Orthostatic hypotension; D64.9 Anemia, unspecified; E78.00 Pure hypercholesterolemia, unspecified; N40.0 Benign prostatic hyperplasia without lower urinary tract symptoms; Z66 Do not resuscitate; H40.9 Unspecified glaucoma; K21.9 Gastro-esophageal reflux disease without esophagitis; K59.00 Constipation, unspecified; H35.30 Unspecified macular degeneration; G31.83 Neurocognitive disorder with Lewy bodies; F02.80 Dementia in other diseases classified elsewhere, unspecified severity, without behavioral disturbance, psychotic disturbance, mood disturbance, and anxiety; I65.23 Occlusion and stenosis of bilateral carotid arteries; R26.89 Other abnormalities of gait and mobility; Z79.01 Long term (current) use of anticoagulants; Z79.899 Other long term (current) drug therapy; Z88.2 Allergy status to sulfonamides

== ENCOUNTER → 2019-01-28 | Outpatient (REF) ==
[~2019-01-28] MED LIST changes: +BISA10SU4 PR; +ELIQ2.5T PO; +FERR325T3 PO; +FLEEENE12 PR; +FLUD0.1T PO; +LEXA1TAB PO; +MIDO5TA PO; +NON-325T5 PO; +OMEP20CA3 PO; +PRES10CA2 PO; +QUET1TAB7 PO; +SENN1TAB36 PO
[2019-01-28 14:25] LABS: HEMATOCRIT 32.8 % (42.0-52.0); HEMOGLOBIN 10.2 g/dl (13.5-17.5); MEAN CORPUSCULAR HEMOGLOBIN 26.3 pg (27.0-33.0); MEAN CORPUSCULAR HGB CONC 31.1 g/dl (32.0-36.5); MEAN CORPUSCULAR VOLUME 84.5 fl (80.0-96.0); PLATELET COUNT, AUTOMATED 227 10^3/uL (150-450); RED BLOOD COUNT 3.88 10^6/uL (4.30-6.10); WHITE BLOOD COUNT 4.9 10^3/uL (4.0-10.0)
[2019-01-28 14:50] LABS: BLOOD UREA NITROGEN 17 MG/DL (7-18); CALCIUM LEVEL 8.7 MG/DL (8.8-10.2); CARBON DIOXIDE LEVEL 28 MEQ/L (21-32); CHLORIDE LEVEL 108 MEQ/L (98-107); GLOMERULAR FILTRATION RATE > 60.0 (>35); GLUCOSE, FASTING 62 MG/DL (70-100); POTASSIUM SERUM 3.8 MEQ/L (3.5-5.1); SODIUM LEVEL 143 MEQ/L (136-145)
== END ==
DX: I48.91 Unspecified atrial fibrillation (principal)

== ENCOUNTER → 2019-01-31 | Outpatient (REF) ==
[2019-01-31 10:41] LABS: HEMATOCRIT 34.8 % (42.0-52.0); HEMOGLOBIN 10.8 g/dl (13.5-17.5); MEAN CORPUSCULAR HEMOGLOBIN 25.9 pg (27.0-33.0); MEAN CORPUSCULAR VOLUME 83.5 fl (80.0-96.0); PLATELET COUNT, AUTOMATED 259 10^3/uL (150-450); RED BLOOD COUNT 4.17 10^6/uL (4.30-6.10); WHITE BLOOD COUNT 5.3 10^3/uL (4.0-10.0)
[2019-01-31 11:02] LABS: BLOOD UREA NITROGEN 15 MG/DL (7-18); CALCIUM LEVEL 8.2 MG/DL (8.8-10.2); CARBON DIOXIDE LEVEL 24 MEQ/L (21-32); CHLORIDE LEVEL 108 MEQ/L (98-107); CREATININE FOR GFR 0.79 MG/DL (0.70-1.30); GLOMERULAR FILTRATION RATE > 60.0 (>35); GLUCOSE, FASTING 82 MG/DL (70-100); POTASSIUM SERUM 3.9 MEQ/L (3.5-5.1); SODIUM LEVEL 142 MEQ/L (136-145)
== END ==
DX: I48.91 Unspecified atrial fibrillation (principal)

== ENCOUNTER → 2019-02-04 | Outpatient (REF) | DX: I48.91 Unspecified atrial fibrillation (principal) ==

== ENCOUNTER → 2019-02-14 | Outpatient (CLI) | payer MEDICARE ==
[2019-02-14 09:18] LABS: HEMOGLOBIN 11.5 g/dl (13.5-17.5); MEAN CORPUSCULAR HEMOGLOBIN 27.1 pg (27.0-33.0); MEAN CORPUSCULAR HGB CONC 31.1 g/dl (32.0-36.5); MEAN CORPUSCULAR VOLUME 87.1 fl (80.0-96.0); PLATELET COUNT, AUTOMATED 177 10^3/uL (150-450); RED BLOOD COUNT 4.25 10^6/uL (4.30-6.10); WHITE BLOOD COUNT 5.6 10^3/uL (4.0-10.0)
[2019-02-14 09:28] LABS: INR 1.04; PROTHROMBIN TIME 13.8 SECONDS (12.1-14.4)
[2019-02-14 10:07] LABS: ALBUMIN 3.6 GM/DL (3.2-5.2); ALT/SGPT 12 U/L (12-78); BILIRUBIN,TOTAL 0.4 MG/DL (0.2-1.0); BLOOD UREA NITROGEN 15 MG/DL (7-18); CALCIUM LEVEL 8.5 MG/DL (8.8-10.2); CARBON DIOXIDE LEVEL 29 MEQ/L (21-32); CHLORIDE LEVEL 107 MEQ/L (98-107); CHOLESTEROL LEVEL 138 MG/DL (<200); CHOLESTEROL RISK RATIO 2.875 (<5); CREATININE FOR GFR 0.87 MG/DL (0.70-1.30); GLOMERULAR FILTRATION RATE > 60.0 (>35); GLUCOSE, FASTING 89 MG/DL (70-100); HDL CHOLESTEROL 48 MG/DL (>40); LDL CHOLESTEROL 76 MG/DL (<100); NON-HDL-C 90 MG/DL; POTASSIUM SERUM 4.1 MEQ/L (3.5-5.1); PROSTATIC SPECIFIC AG MONITOR < 0.01 NG/ML (< 4.00); SODIUM LEVEL 143 MEQ/L (136-145); TRIGLYCERIDES LEVEL 68 MG/DL (<150)
[2019-02-14 13:13] LABS: HEMOGLOBIN A1c 5.1 %
== END ==
LOC: M LAB 08:53
PROVIDERS: ATTEND Family Medicine
DX: D64.9 Anemia, unspecified (principal); R53.83 Other fatigue; E03.9 Hypothyroidism, unspecified

== ENCOUNTER → 2019-03-12 | Outpatient (CLI) | payer MEDICARE ==
[2019-03-12 10:57] LABS: HEMATOCRIT 39.9 % (42.0-52.0); MEAN CORPUSCULAR HEMOGLOBIN 27.7 pg (27.0-33.0); MEAN CORPUSCULAR HGB CONC 32.6 g/dl (32.0-36.5); MEAN CORPUSCULAR VOLUME 85.1 fl (80.0-96.0); PLATELET COUNT, AUTOMATED 165 10^3/uL (150-450); RED BLOOD COUNT 4.69 10^6/uL (4.30-6.10); WHITE BLOOD COUNT 5.5 10^3/uL (4.0-10.0)
[2019-03-12 11:05] LABS: INR 1.1; PROTHROMBIN TIME 14.3 SECONDS (12.1-14.4)
[2019-03-12 11:33] LABS: ALBUMIN 3.8 GM/DL (3.2-5.2); ALT/SGPT 18 U/L (12-78); BILIRUBIN,TOTAL 0.6 MG/DL (0.2-1.0); BLOOD UREA NITROGEN 14 MG/DL (7-18); CALCIUM LEVEL 9.1 MG/DL (8.8-10.2); CARBON DIOXIDE LEVEL 30 MEQ/L (21-32); CHLORIDE LEVEL 105 MEQ/L (98-107); CHOLESTEROL LEVEL 155 MG/DL (<200); CREATININE FOR GFR 0.84 MG/DL (0.70-1.30); GLOMERULAR FILTRATION RATE > 60.0 (>35); GLUCOSE, FASTING 79 MG/DL (70-100); HDL CHOLESTEROL 54 MG/DL (>40); LDL CHOLESTEROL 84 MG/DL (<100); NON-HDL-C 101 MG/DL; POTASSIUM SERUM 3.6 MEQ/L (3.5-5.1); SODIUM LEVEL 142 MEQ/L (136-145); TOTAL PROTEIN 6.3 GM/DL (6.4-8.2); TRIGLYCERIDES LEVEL 85 MG/DL (<150)
== END ==
LOC: M LAB 08:56
PROVIDERS: ATTEND Family Medicine
DX: I10 Essential (primary) hypertension (principal); D64.9 Anemia, unspecified; R53.83 Other fatigue

== ENCOUNTER → 2019-04-24 | Outpatient (CLI) | payer MEDICARE ==
[~2019-04-24] MED LIST changes: -OMEP20CA3 PO; +OMEP20CA4 PO
[2019-04-24 09:44] LABS: HEMATOCRIT 41.1 % (42.0-52.0); HEMOGLOBIN 13.3 g/dl (13.5-17.5); MEAN CORPUSCULAR HEMOGLOBIN 28.5 pg (27.0-33.0); MEAN CORPUSCULAR HGB CONC 32.4 g/dl (32.0-36.5); MEAN CORPUSCULAR VOLUME 88.2 fl (80.0-96.0); PLATELET COUNT, AUTOMATED 161 10^3/uL (150-450); RED BLOOD COUNT 4.66 10^6/uL (4.30-6.10); WHITE BLOOD COUNT 5.9 10^3/uL (4.0-10.0)
[2019-04-24 09:59] LABS: INR 1.23; PROTHROMBIN TIME 15.2 SECONDS (11.8-14.0)
[2019-04-24 10:20] LABS: ALBUMIN 3.6 GM/DL (3.2-5.2); ALT/SGPT 13 U/L (12-78); BILIRUBIN,TOTAL 0.4 MG/DL (0.2-1.0); BLOOD UREA NITROGEN 17 MG/DL (7-18); CALCIUM LEVEL 8.9 MG/DL (8.8-10.2); CARBON DIOXIDE LEVEL 31 MEQ/L (21-32); CHLORIDE LEVEL 107 MEQ/L (98-107); CREATININE FOR GFR 0.91 MG/DL (0.70-1.30); GLOMERULAR FILTRATION RATE > 60.0 (>35); GLUCOSE, FASTING 87 MG/DL (70-100); SODIUM LEVEL 143 MEQ/L (136-145); TOTAL PROTEIN 6.2 GM/DL (6.4-8.2)
== END ==
LOC: M LAB 09:08
PROVIDERS: ATTEND Family Medicine
DX: I12.9 Hypertensive chronic kidney disease with stage 1 through stage 4 chronic kidney disease, or unspecified chronic kidney disease (principal); N18.9 Chronic kidney disease, unspecified

== ENCOUNTER → 2019-05-13 | Outpatient (REF) | payer MEDICARE ==
[2019-05-13 18:45] LABS: APPEARANCE, URINE TURBID (CLEAR); BACTERIA, URINE AUTO 3+ (NEGATIVE); BILIRUBIN, URINE AUTO NEGATIVE (NEGATIVE); BLOOD, URINE BLOOD NEGATIVE (NEGATIVE); COLOR, URINE YELLOW (YELLOW); GLUCOSE, URINE (UA) AUTO NEGATIVE (NEGATIVE); KETONE, URINE AUTO NEGATIVE (NEGATIVE); LEUKOCYTE ESTERASE, URINE AUTO 3+ (NEGATIVE); NITRITE, URINE AUTO NEGATIVE (NEGATIVE); PROTEIN, URINE AUTO 1+ mg/dL (NEGATIVE); RBC, URINE AUTO 3 /HPF (0-3); SPECIFIC GRAVITY URINE AUTO 1.013 (1.002-1.035); SQUAMOUS EPITHELIAL CELL UR AU 0 /HPF (0-6); UROBILINOGEN, URINE AUTO 0.2 mg/dL (0.0-2.0); WBC, URINE AUTO TNTC /HPF (0-3)
== END ==
LOC: M SMT 16:55
PROVIDERS: ATTEND Nurse Practitioner Family
DX: N40.1 Benign prostatic hyperplasia with lower urinary tract symptoms (principal)

== ENCOUNTER → 2019-07-24 | Outpatient (REF) | payer MEDICARE ==
[~2019-07-24] MED LIST changes: +SENN-53 PO; -SENN1TAB40 PO
[2019-07-25 14:21] LABS: APPEARANCE, URINE CLEAR (CLEAR); BACTERIA, URINE AUTO NEGATIVE (NEGATIVE); BILIRUBIN, URINE AUTO NEGATIVE (NEGATIVE); BLOOD, URINE BLOOD NEGATIVE (NEGATIVE); COLOR, URINE YELLOW (YELLOW); GLUCOSE, URINE (UA) AUTO NEGATIVE (NEGATIVE); KETONE, URINE AUTO NEGATIVE (NEGATIVE); LEUKOCYTE ESTERASE, URINE AUTO NEGATIVE (NEGATIVE); NITRITE, URINE AUTO NEGATIVE (NEGATIVE); PROTEIN, URINE AUTO NEGATIVE (NEGATIVE); RBC, URINE AUTO 0 /HPF (0-3); SPECIFIC GRAVITY URINE AUTO 1.012 (1.002-1.035); SQUAMOUS EPITHELIAL CELL UR AU 0 /HPF (0-6); UROBILINOGEN, URINE AUTO 0.2 mg/dL (0.0-2.0); WBC, URINE AUTO 0 /HPF (0-3)
== END ==
LOC: M LAB REF 13:03
PROVIDERS: ATTEND Family Medicine
DX: N39.0 Urinary tract infection, site not specified (principal)